=== PATIENT | female | born 1965 | race Caucasian/White ===

== ENCOUNTER 2023-04-11 06:55 | Day surgery (SDC) | payer OTHER, SELFPAY ==
[2023-04-11 07:20] VITALS: BP 119/76; PULSE 88; RESP 18; TEMP 36.4; O2SAT 95; BMI 35.6
[2023-04-11] MEDS: LACTATED RINGER'S SOLUTION 1,000 ML 50 ML IV (07:34)
[2023-04-11 08:48] VITALS: BP 93/56; PULSE 77; RESP 20; TEMP 36.2; O2SAT 96
--- NOTE | 2023-04-11 08:49 | OP_ITS ---
OPERATION DATE: ??04/11/2023 PREOPERATIVE DIAGNOSIS:? Anemia, iron deficiency anemia. POSTOPERATIVE DIAGNOSIS:? Mild antral gastritis and small hiatal hernia.? Normal colonoscopy to cecum. PROCEDURE:? EGD with antral biopsy and colonoscopy to cecum. SURGEON:? David Herrera M.D. ANESTHESIA:? Monitored anesthesia care. ESTIMATED BLOOD LOSS:? Less than 1 mL. INDICATIONS AND CONSENT:? Patient is a 58-year-old female presents for worsening of her chronic iron deficiency anemia.? Indications, risks, benefits, alternatives of proceeding with EGD and colonoscopy were explained extensively to the patient, including the risks of bleeding, aspiration, esophageal/gastric/duodenal or colonic perforation or anesthetic complications.? All of her questions were answered.? Informed consent was obtained. PROCEDURE:? Patient was brought to the operating room, placed in the left lateral decubitus position.? Monitored anesthesia care was provided.? Bite block was placed in the patient?s mouth.? Scope was entered into the oropharynx.? Under direct visualization, it was advanced into the esophagus, past the cricopharyngeus, down to the stomach.? The stomach was insufflated with air.? The pylorus was traversed down to the descending portion of the duodenum.? There was no evidence of duodenitis or ulceration.? There was no scarring within the pyloric channel.?? The scope was pulled back into the stomach and retroflexed.? There was a small sliding type hiatal hernia.? Within the antrum, there was noted to be some mild antral gastritis without ulceration or bleeding.? Biopsy was obtained with pediatric cold biopsy forceps with good hemostasis.? The GE junction was noted at approximately 39 cm.? There was no distal esophagitis or Leroy?s changes. The remainder of the esophagus was unremarkable.? The scope was then withdrawn.? Patient was then positioned for colonoscopy.? Rectal exam was performed, which showed no masses or blood.? The scope was then inserted into the anal canal.? Under direct visualization, it was advanced.? It was advanced to the cecum where cecal markings were clearly identified.? There was noted to be a good prep.? Upon withdrawal of the scope, mucosal surfaces were carefully examined.? There were no mass lesions or polyps.? No inflammatory changes or ulcerations.? There were rare sigmoid diverticula without inflammatory changes or scarring.? The scope was retroflexed in the anal canal.? There was no significant hemorrhoidal disease.? The scope was then withdrawn.? The patient tolerated procedure well, was sent to recovery room in good condition. f/u colonoscopy should be in 10 years for screening. CC:? Patient?s family physician CARLA
[2023-04-11 09:03] VITALS: BP 108/76; PULSE 78; RESP 18; TEMP 36.3; O2SAT 96
[2023-04-11 09:18] VITALS: BP 104/59; PULSE 72; RESP 18; TEMP 36.6; O2SAT 96
== END 2023-04-11 09:40 | disposition home or self-care (01) ==
PROVIDERS: PCP Family Medicine; Visit Provider Surgery
PROC: (CPT 813; principal; 2023-04-11 08:10)
DX: K29.70 Gastritis, unspecified, without bleeding (principal); D50.9 Iron deficiency anemia, unspecified; F41.9 Anxiety disorder, unspecified; G47.30 Sleep apnea, unspecified; J45.909 Unspecified asthma, uncomplicated; I25.10 Atherosclerotic heart disease of native coronary artery without angina pectoris; I87.2 Venous insufficiency (chronic) (peripheral); E11.9 Type 2 diabetes mellitus without complications; K21.9 Gastro-esophageal reflux disease without esophagitis; I10 Essential (primary) hypertension; E66.01 Morbid (severe) obesity due to excess calories; F17.210 Nicotine dependence, cigarettes, uncomplicated; E55.9 Vitamin D deficiency, unspecified; Z98.84 Bariatric surgery status; M48.02 Spinal stenosis, cervical region; Z68.35 Body mass index [BMI] 35.0-35.9, adult; Z79.82 Long term (current) use of aspirin; Z79.899 Other long term (current) drug therapy; K44.9 Diaphragmatic hernia without obstruction or gangrene
CPT/HCPCS: 43239; 45378; 36415; 88305; 88342; J2704

== ENCOUNTER 2023-12-06 08:13 | Outpatient (OUT) | payer OTHER, SELFPAY ==
[2023-12-06 08:29] LABS: Basophils Absolute Auto 0.1 10^3/uL (0.0-0.1); Basophils Percent Auto 1.3 % (0.2-2.0); Eosinophils Absolute Auto 0.1 10^3/uL (0.0-0.7); Eosinophils Percent Auto 2.6 % (0.9-7.0); Hematocrit 33.6 % (36.0-48.0); Hemoglobin 10.7 g/dL (12.0-16.0); Lymphocytes Absolute Auto 1.3 10^3/uL (1.2-3.8); Lymphocytes Percent Auto 32.6 % (20.5-60.0); Mean Corpuscular HGB Conc 31.8 g/dL (29.9-35.2); Mean Corpuscular Hemoglobin 32.2 pg (26.7-34.0); Mean Corpuscular Volume 101.2 fL (81.0-99.0); Monocytes Absolute Auto 0.4 10^3/uL (0.3-0.8); Monocytes Percent Auto 10.8 % (1.7-12.0); Neutrophils Absolute Auto 2.1 10^3/uL (1.4-6.5); Neutrophils Percent Auto 52.7 % (43.0-75.0); Platelet Count 193 10^3/uL (150-450); Red Blood Count 3.32 10^6/uL (4.20-5.40); Red Cell Distribution Width 12.4 % (11.0-15.0); White Blood Count 3.9 10^3/uL (4.0-11.0)
[2023-12-06 09:23] LABS: Estimated Average Glucose 105 mg/dL; Glycohemoglobin A1C 5.3 % (4.5-6.2)
[2023-12-06 09:41] LABS: Alanine Aminotransferase 37 U/L (14-59); Albumin Level 3.6 g/dL (3.4-5.0); Alkaline Phosphatase 41 U/L (46-116); Anion Gap 12.5; Aspartate Amino Transferase 29 U/L (15-37); BUN Creatinine Ratio 32.7; Bilirubin Total 0.7 mg/dL (0.2-1.0); Calcium 8.9 mg/dL (8.5-10.1); Carbon Dioxide 26.1 mmol/L (21.0-32.0); Chloride 108 mmol/L (98-107); Chol HDL Ratio 2.2; Cholesterol 125 mg/dL (<=200); Estimated GFR (African America >60 (>=60); Estimated GFR (Non-African Ame 51 (>=60); Free T3 2.52 pg/mL (2.18-3.98); Globulin 3.6 g/dL; Glucose 92 mg/dL (74-106); HDL Cholesterol 58 mg/dL (40-60); LDL Cholesterol Calculated 39.4 mg/dL; Potassium 4.6 mmol/L (3.5-5.1); Sodium 142 mmol/L (136-145); Thyroid Stimulating Hormone 1.937 uIU/mL (0.358-3.740); Total Protein 7.2 g/dL (6.4-8.2); Triglycerides 138 mg/dL (<=150); VLDL CHOLESTEROL 27.6 mg/dL
[2023-12-07 11:12] LABS: Insulin 12.9 uIU/mL (2.6-24.9)
== END 2023-12-06 08:14 | disposition home or self-care (01) ==
LOC: LAB 08:15
PROVIDERS: PCP Family Medicine; Visit Provider Family Medicine
DX: Z00.00 Encounter for general adult medical examination without abnormal findings (principal); E78.5 Hyperlipidemia, unspecified; R73.09 Other abnormal glucose; D64.9 Anemia, unspecified
CPT/HCPCS: 36415; 80053; 80061; 83036; 83525; 83540; 84436; 84443; 84481; 85025

== ENCOUNTER 2023-12-18 08:28 | Outpatient (OUT) | payer OTHER, SELFPAY ==
--- OUTSIDE RECORDS SUMMARY | 2023-12-18 08:33 | XMS_ITS | CCD ---
Author Name Unknown Address [address] [place] [address] Organization [facility] Care Team Providers Care In Classroom Tutor Name Role Phone ISAAC LAROSE Referring Unavailable Unknown, Pcp Unavailable Unavailable Jacqueline Robles Unavailable Noah Tai Unavailable Yolie Cross Unavailable Kaitlin Garibay Unavailable LAUREEN DAVENPORT Attending Unavailable Winston Sotelo Primary Care Physician DEEPAK ., DR MONTERO Admitting Unavailable HOY ., DR MONTERO Attending Unavailable HOY ., DR MOTNERO Consulting Unavailable HOY ., DR MONTERO Primary Care Unavailable HOY ., DR MONTERO Primary Care Unavailable ELTAHAWY, DR PANDEY Admitting Unavailable ELTAHAWY, DR PANDEY Attending Unavailable ELTAHAWY, DR PANDEY Consulting Unavailable ELTAHAWY, DR PANDEY Consulting Unavailable HOY ., DR MONTERO Primary Care Unavailable ELTAHAWY, DR PANDEY Admitting Unavailable ELTAHAWY, DR PANDEY Attending Unavailable SANCHOY ., DR MONTERO Primary Care Unavailable NILL ., DR ANDERSON Admitting Unavailable NILL ., DR ANDERSON Attending Unavailable NILLDavid Attending Unavailable NILLDavid Attending Unavailable NILLDavid Attending Unavailable Allergies Allergy Classification Reported Allergen(s) Allergy Type Date of Onset Reaction(s) Facility (1 source) Cat Angioedema [facility] (1 source) DrugAllergiesUnable to Obtain [facility] Comment on above: Pharmacy/MD office jackelyn de souza (5 sources) Latex; Translations: [LATEX] Propensity to adverse reactions to drug (disorder) 01-20-20 23 adele nixon [facility] Rep[facility] Medications Current Medications Medication Drug Class(es) Dates Sig (Normalized) Sig (Original) Acetaminophen (8 sources) Tylenol Active [id number] 200 actuat albuterol 0.09 mg/actuat metered dose inhaler (1 source) beta2-Adrenergic Agonist Start: 09-04-2022 take 2 puff(s) by inhalation four times daily as needed Albuterol Sulfate HFA 108 (90 Base) MCG/ACT 2 puffs Inhalation 4 times a day prn 14 Aug, 2022 Active Aspir-81 (8 sources) Aspir-81 Active aspirin 81 mg chewable tablet (2 sources) Platelet Aggregation Inhibitor, Nonsteroidal Anti-inflammatory Drug Start: 02-09-2023 aspirin 81 mg Chew Tab 81 mg = 1 tab(s), Chewed, Daily, Refills(s) 0 Start Date: 02/09/23 Status: Ordered atorvastatin (8 sources) HMG-CoA Reductase Inhibitor Atorvastatin Calcium Active azithromycin 250 mg oral tablet (1 source) Macrolide Antimicrobial Start: 09-04-2022 Azithromycin 250 MG 2 tablet on the first day, then 1 tablet daily for 4 days Orally Once a day for 5 day(s) Aug, Active carvedilol 12.5 mg oral tablet (2 sources) alpha-Adrenergic Denzel, beta-Adrenergic Denzel Start: 02-09-2023 take 1 tablet by mouth twice daily Coreg 12.5 mg Tab 12.5 mg = 1 tab(s), Oral, BID, Refills(s) 0 Start Date: 02/09/23 Status: Ordered celecoxib 200 mg oral capsule (10 sources) Nonsteroidal Anti-inflammatory Drug Start: 02-12-2018 take 200 mg by mouth once daily Celebrex 200 mg, Oral, Daily, Refills(s) 0 Start Date: 02/12/18 Status: Ordered Celecoxib Active cephalexin 500 mg oral capsule (1 source) Cephalosporin Antibacterial Start: 02-04-2023 take 1 capsule by mouth every eight hours Cephalexin 500 MG 1 capsule Orally tid for 10 day(s) Jan, Active chlorhexidine gluconate 1.2 mg/ml mouthwash (1 source) Start: 07-10-2021 Peridex 0.12% mucous membrane liquid ; 15 milliliter(s) orally 3 times a 1day Quantity: 1 Refills: 0 Ordered: 10-Jul-2021 Jacqueline Robles Start: 10-Jul-2021 Generic Substitution Allowed dextromethorphan hydrobromide 1.5 mg/ml / pyrilamine maleate 1.5 mg/ml oral solution (2 sources) Uncompetitive W-z[place]job-[place] te Receptor Antagonist, Sigma-1 Agonist Start: 08-27-2022 take 10 mL by mouth every eight hours [place] DM 7.5-7.5 MG/5ML 10 mL Orally every 8 hours for 5 days Aug, Active diclofenac sodium 0.01 mg/mg topical gel (8 sources) Nonsteroidal Anti-inflammatory Drug Voltaren 1 % as directed Externally Active docusate sodium 100 mg oral capsule (2 sources) Start: 02-09-2023 take 1 capsule by mouth twice daily as needed for constipation Colace 100 mg Cap 100 mg = 1 cap(s), Oral, BID, PRN for constipation, Refills(s) 0 Start Date: 02/09/23 Status: Ordered ferrous sulfate 325 mg delayed release oral tablet (2 sources) Start: 02-09-2023 take 1 tablet by mouth twice daily ferrous sulfate 325 mg oral enteric coated tablet 325 mg = 1 tab(s), Oral, BID, Refills(s) 0 Start Date: 02/09/23 Status: Ordered fluticasone propionate 0.05 mg/actuat metered dose nasal spray (3 sources) Corticosteroid Start: 09-04-2022 take 2 spray(s) nasal route once daily Fluticasone Propionate 50 MCG/ACT 2 sprays Nasally Once a day for 14 day(s) Aug, Active Start: 08-27-2022 take 1 spray(s) nasa l route twice daily Flonase Allergy Relief 50 MCG/ACT 1 spray in each nostril Nasally Twice a day for 14 day(s) Aug, Active furosemide 20 mg oral tablet (16 sources) Loop Diuretic take 1 tablet by lenny th every twenty-four hours Lasix 20 MG 1 tablet Orally Once a day Active Furosemide Not-T aking Furosemide Activ e hydrOXYzine hydrochloride 25 mg oral tablet (2 sources) Antihistamine Start: 02-09-2023 take 1-2 tablets by mouth at bedtime hydrOXYzine hydrochloride 25 mg Tab 1-2 tabs, Oral, Bedtime, Refills(s) 0 Start Date: 02/09/23 Status: Ordered linaclotide 0.072 mg oral capsule (2 sources) Guanylate Cyclase-C Agonist Start: 02-09-2023 take 1 capsule by mouth once daily Linzess 72 mcg oral capsule 72 mcg = 1 cap(s), Oral, Daily, Refills(s) 0 Start Date: 02/09/23 Status: Ordered lisinopril 40 mg oral tablet (10 sources) Angiotensin Converting Enzyme Inhibitor Start: 02-09-2023 take 1 tablet by mouth once daily lisinopril 40 mg Tab 40 mg = 1 tab(s), Oral, Daily, Refills(s) 0 Start Date: 02/09/23 Status: Ordered Lisinopril Activ e Multivitamin preparation (10 sources) Start: 02-09-2023 take 1 tablet by mouth once daily multivitamin 1 tab(s), Oral, Daily, Refill(s) 0 Start Date: 02/09/23 Status: Ordered Multivitamin Act lisandro oxybutynin chloride 5 mg oral tablet (10 sources) Cholinergic Muscarinic Antagonist Start: 02-12-2018 take 5 mg by mouth once daily oxybutynin 5 mg, Oral, Daily, Refills(s) 0 Start Date: 02/12/18 Status: Ordered Oxybutynin Chlor leonarda Active pantoprazole 40 mg extended release oral tablet (10 sources) Proton Pump Inhibitor Start: 02-12-2018 take 40 mg by mouth twice daily pantoprazole 40 mg, Oral, BID, Refills(s) 0 Start Date: 02/12/18 Status: Ordered Pantoprazole Sod ium Active predniSONE 20 mg oral tablet (1 source) Start: 09-04-2022 take 1 tablet by mouth every twelve hours predniSONE 20 MG 1 tablet Orally 2 times a day for 5 day(s) Aug, Active tiZANidine 4 mg oral tablet (8 sources) Central alpha-2 Adrenergic Agonist take 1 tablet by mouth every eight hours tiZANidine HCl 4 MG 1 tablet as needed Orally Three times a day Active Completed/Discontinued Medications Medication Drug Class(es) Dates Sig (Normalized) Sig (Original) acetaminophen 325 mg / HYDROcodone bitartrate 5 mg oral tablet (6 sources) Opioid Agonist Start: 10-17-2021 take 1 tablet by mouth every four hours as needed for pain HYDROcodone-Aceta minophen 5-325 MG 1 tablet as needed for pain Orally up to every 4 hrs for 5 days Sep, Not-Taking amoxicillin 875 mg / clavulanate 125 mg oral tablet (4 sources) Penicillin-class Antibacterial Start: 02-19-2022 take 1 tablet by mouth every twelve hours Amoxicillin-Pot Clavulanate 875-125 MG 1 tablet Orally every 12 hrs for 10 day(s) February, Not-Taking Metoprolol (8 sources) beta-Adrenergic Denzel Metoprolol Succinate ER Not-Taking traMADol (8 sources) Opioid Agonist traMADol HCl Not-Taking traMADol HCl Act lisandro Problems Active Problems Problem Classification Problem Date Documented Date Episodic/Chronic Allergic reactions (2 sources) Eczema 02-09-2023 Episodic Anxiety disorders (2 sources) Anxiety 02-09-2023 Chronic Asthma (2 sources) Asthma 02-12-2018 Chronic Chronic obstructive pulmonary disease and bronchiectasis (1 source) Bronchitis, not specified as acute or chronic Episodic Congestive heart failure; nonhypertensive (6 sources) Chronic diastolic (congestive) heart failure; Translations: [Chronic diastolic (congestive) heart failure] Onset: 07-04-2022 Chronic Coronary atherosclerosis and other heart disease (4 sources) Atherosclerotic heart disease of [place] coronary artery without angina pectoris; Translations: [Coronary arteriosclerosis] Onset: 07-04-2022 Chronic Deficiency and other anemia (2 sources) Anemia 02-12-2018 Episodic Deficiency and other anemia (2 sources) Iron deficiency anemia; Translations: [Iron deficiency anemia, unspecified] Onset: 04-25-2023 Episodic Diabetes mellitus without complication (2 sources) Diabetes mellitus 02-09-2023 Chronic E Codes: Fall (2 sources) Fall 07-10-2021 Comment on above: FALL Esophageal disorders (2 sources) Gastroesophageal reflux disease 02-09-2023 Chronic Essential hypertension (7 sources) Essential (primary) hypertension; Translations: [Hypertensive disorder] Onset: 12-19-2018 Chronic Immunizations and screening for infectious disease (4 sources) Contact with and (suspected) exposure to other viral communicable diseases; Translations: [Contact with and (suspected) exposure to other viral communicable diseases] Episodic Malaise and fatigue (1 source) Other fatigue; Translations: [Other fatigue] Onset: 12-19-2018 Episodic Nutritional deficiencies (2 sources) Vitamin D deficiency 02-09-2023 Chronic Open wounds of head; neck; and trunk (3 sources) Laceration of lower lip ; Translations: [Open wound of lip, without mention of complication] 07-10-2021 Episodic Osteoarthritis (2 sources) Arthritis 02-09-2023 Chronic Other diseases of veins and lymphatics (2 sources) Peripheral venous insufficiency 02-09-2023 Episodic Other injuries and conditions due to external causes (2 sources) Closed injury of head; Translations: [Head injury, unspecified] 07-10-2021 Episodic Other lower respiratory disease (1 source) Snoring; Translations: [Snoring] Onset: 12-19-2018 Episodic Other lower respiratory disease (1 source) Shortness of breath; Translations: [Shortness of breath] Onset: 12-19-2018 Episodic Other nervous system disorders (8 sources) Bilateral carpal tunnel syndrome; Translations: [Carpal tunnel syndrome, bilateral upper limbs] Chronic Other nervous system disorders (8 sources) Carpal tunnel syndrome of right wrist; Translations: [Carpal tunnel syndrome, right upper limb] Chronic Other nervous system disorders (8 sources) Carpal tunnel syndrome; Translations: [Carpal tunnel syndrome, unspecified upper limb] Chronic Other nervous system disorders (10 sources) Lesion of ulnar nerve, right upper limb; Translations: [Cubital tunnel syndrome on right] Onset: 08-18-2021 Resolved: 11-01-2021 Chronic Other nervous system disorders (2 sources) Carpal tunnel syndrome, right upper limb; Translations: [Right carpal tunnel syndrome G56.01] Onset: 08-18-2021 Resolved: 11-01-2021 Chronic Other nervous system disorders (2 sources) Numbness 02-09-2023 Episodic Other nutritional; endocrine; and metabolic disorders (2 sources) Body mass index 30+ - obesity 02-14-2023 Chronic Other nutritional; endocrine; and metabolic disorders (2 sources) Morbid obesity 02-09-2023 Chronic Other nutritional; endocrine; and metabolic disorders (1 source) Abnormal weight gain; Translations: [Abnormal weight gain] Onset: 12-19-2018 Episodic Other upper respiratory infections (4 sources) Acute upper respiratory infection, unspecified; Translations: [Acute pharyngitis, unspecified] Episodic Residual codes; unclassified (1 source) Other hypersomnia; Translations: [Other hypersomnia] Onset: 12-19-2018 Chronic Residual codes; unclassified (2 sources) Sleep apnea 02-19-2018 Chronic Residual codes; unclassified (1 source) Sleep apnea, unspecified; Translations: [Sleep apnea, unspecified] Onset: 12-19-2018 Residual codes; unclassified (1 source) Hypersomnia, unspecified; Translations: [Hypersomnia, unspecified] Onset: 12-19-2018 Skin and subcutaneous tissue infections (1 source) Cellulitis of right upper limb Episodic Spondylosis; intervertebral disc disorders; other back problems (4 sources) Low back pain; Translations: [Spinal stenosis in cervical region] 02-09-2023 Episodic Substance-related disorders (2 sources) Smoker 02-19-2018 Chronic Comment on above: Added secondary to d ocumentation in Social History. Superficial injury; contusion (5 sources) Contusion of nose; Translations: [Contusion of face, scalp, and neck except eye(s)] 07-10-2021 Episodic Unclassified (1 source) Nasal contusion 07-10-2021 Unclassified (1 source) Abrasion of nose 07-10-2021 Unclassified (1 source) Intraoral laceration 07-10-2021 Unclassified (1 source) Contusion, elbow 07-10-2021 Unclassified (1 source) Contusion of knee, right 07-10-2021 Unclassified (1 source) Abrasion, hand 07-10-2021 Varicose veins of lower extremity (2 sources) Varicose veins of lower extremity 02-09-2023 Episodic Past or Other Problems Problem Classification Problem Date Documented Date Episodic/Chronic Other aftercare (1 source) Encounter for removal of sutures Onset: 11-01-2021 Resolved: 11-01-2021 Episodic Residual codes; unclassified (2 sources) Other specified postprocedural states Onset: 10-17-2021 Resolved: 11-01-2021 Episodic Residual codes; unclassified (4 sources) Edema, unspecified; Translations: [EDEMA UNSPECIFIED] Onset: 06-30-2022 Episodic Unclassified (1 source) Contact with and (suspected) exposure to covid-19 Z20.822 Results Test Name Value Interpretation Reference Range Facility Ambulatory Visit Summaryon 0 04-25-2023 Ambulatory Visit Summary LUJANJACKELYN SHORTSuraj Nora :1965 Visit Date:04/25/2023 Ambulatory Visit Instructions Your Diagnosis Iron deficiency anemia Your Care Team Attending Physician - ANNABEL BERRY, David Murphy Primary Care Physician - Winston Sotelo MD This Is Your Medications List Contact prescribing physician if questions or concerns aspirin (aspirin 81 mg Chew Tab) carvedilol (Coreg 12.5 mg Tab) celecoxib (Celebrex) docusate (Colace 100 mg Cap) ferrous sulfate (ferrous sulfate 325 mg oral enteric coated tablet) hydrOXYzine (hydrOXYzine hydrochloride 25 mg Tab) linaclotide (Linzess 72 mcg oral capsule) lisinopril (lisinopril 40 mg Tab) multivitamin oxybutynin pantoprazole Procedures Performed Colonoscopy (04/11/2023), EGD - Esophagogastroduodenoscopy (04/11/2023), Gastric sleeve (2020), Carpal tunnel release, History of elbow surgery, History of tubal ligation, Repair of meniscus. Medications What How Much When Instructions Unchanged aspirin (aspirin 81 mg Chew Tab) 1 Tablets Chewed Every day Contact prescribing physician if questions or concerns Unchanged carvedilol (Coreg 12.5 mg Tab) 1 Tablets By Mouth 2 times a day Contact prescribing physician if questions or concerns Unchanged celecoxib (Celebrex) 200 Milligram By Mouth Every day Contact prescribing physician if questions or concerns Unchanged docusate (Colace 100 mg Cap) 1 Capsules By Mouth 2 times a day as needed for for constipation Contact prescribing physician if questions or concerns Unchanged ferrous sulfate (ferrous sulfate 325 mg oral enteric coated tablet) 1 Tablets By Mouth 2 times a day Contact prescribing physician if questions or concerns Unchanged hydrOXYzine (hydrOXYzine hydrochloride 25 mg Tab) 1-2 tabs By Mouth At bedtime Contact prescribing physician if questions or concerns Unchanged linaclotide (Linzess 72 mcg oral capsule) 1 Capsules By Mouth Every day Contact prescribing physician if questions or concerns Unchanged lisinopril (lisinopril 40 mg Tab) 1 Tablets By Mouth Every day Contact prescribing physician if questions or concerns Unchanged multivitamin 1 Tablets By Mouth Every day Contact prescribing physician if questions or concerns Unchanged oxybutynin 5 Milligram By Mouth Every day Contact prescribing physician if questions or concerns Unchanged pantoprazole 40 Milligram By Mouth 2 times a day Contact prescribing physician if questions or concerns Allergies Latex (lips swell) Problems Ongoing - Any problem that you are currently receiving treatment for. Anemia Anxiety Apnea, sleep Asthma BMI 35.0-35.9,adult CAD (coronary artery disease) Cervical stenosis of spine Chronic venous insufficiency Diabetes Eczema GERD (gastroesophageal reflux disease) HTN (hypertension) Hypertension Iron deficiency anemia Low back pain syndrome Morbid obesity Smoker Varicose veins of legs Vitamin D deficiency Historical - Any problem that you are no longer receiving treatment for. Arthritis Numbness Normal [facility] General Surgery Office/Clini c Noteon 04-25-2023 General Surgery Office/Clinic Note Chief Complaint post operative follow up HPI Staff 14 day post operative follow up post colonoscopy and EGD with antral biopsy. History of Present Illness f/u EGD/colonoscopy done for anemia; mild gastric inflammation, bx with mild gastritis, negative for H Pylori, normal colon. doing well, no pain or blood in stools. Review of Systems ROS - Provider Constitutional: no fever, no sweats, no weight loss. Eyes: no glasses, no blurred vision, no visual loss. ENMT: no dentures, no hoarseness, no swallowing difficulties, no hearing loss, no ear infection(s), no nose bleeds. Cardiovascular: normal blood pressure, no chest pain, regular heartbeat, no heart murmur. Respiratory: no shortness of breath, no cough, no asthma, no wheezing. Gastrointestinal: no nausea, no vomiting, no diarrhea, no constipation, no blood in stool, no change in bowel habits, no abdominal pain, no hepatitis. Genitourinary: no kidney stones, no urine infection, no dysuria. Musculoskeletal: no pain, no weakness. Skin: no changing moles, no rash, no skin lumps. Neurologic: no seizures, no epilepsy, no headache. Psychiatric: no emotional or psychiatric problem. Heme/Lymph: no bleeding problems, no anemia, no blood clots, no transfusions. Allergy/Immunologic: no swollen lymph nodes/glands, no IV drug abuse. Other: Additional ROS info: Except as noted in the above Review of Systems and in the History of Present Illness, all other systems have been reviewed and are negative or noncontributory. Assessment/Plan 1. Iron deficiency anemia (D50.9: Iron deficiency anemia, unspecified) no source found on EGD or colonoscopy; recommend evaluation by Hematology if persists; f/u screening colonoscopy in 10 years; call sooner if problems/questions. Follow-up No qualifying data available Problem List/Past Medical History Ongoing Anemia Anxiety Apnea, sleep Asthma BMI 35.0-35.9,adult CAD (coronary artery disease) Cervical stenosis of spine Chronic venous insufficiency Diabetes Eczema GERD (gastroesophageal reflux disease) HTN (hypertension) Hypertension Iron deficiency anemia Low back pain syndrome Morbid obesity Smoker Varicose veins of legs Vitamin D deficiency Historical Arthritis Numbness Procedure/Surgical History Colonoscopy (04/11/2023), EGD - Esophagogastroduodenoscopy (04/11/2023), Gastric sleeve (2020), Carpal tunnel release, History of elbow surgery, History of tubal ligation, Repair of meniscus. Medications aspirin 81 mg Chew Tab, 81 mg= 1 tab(s), Chewed, Daily Celebrex, 200 mg, Oral, Daily Colace 100 mg Cap, 100 mg= 1 cap(s), Oral, BID, PRN Coreg 12.5 mg Tab, 12.5 mg= 1 tab(s), Oral, BID ferrous sulfate 325 mg oral enteric coated tablet, 325 mg= 1 tab(s), Oral, BID hydrOXYzine hydrochloride 25 mg Tab, 1-2 tabs, Oral, Bedtime Linzess 72 mcg oral capsule, 72 mcg= 1 cap(s), Oral, Daily lisinopril 40 mg Tab, 40 mg= 1 tab(s), Oral, Daily multivitamin, 1 tab(s), Oral, Daily oxybutynin, 5 mg, Oral, Daily pantoprazole, 40 mg, Oral, BID Allergies Latex (lips swell) Social History Alcohol Current, Liquor, 1-2 times per week, 02/14/2023 Substance Abuse - Denies Substance Abuse, 02/19/2018 Tobacco Former smoker, quit more than 30 days ago Tobacco Use:. Never Smokeless Tobacco Use:. Cigarettes, 1 per day. Started age 18.0 Years. Stopped age 52 Years., 02/14/2023 Family History Cardiac arrest: Mother. Primary malignant neoplasm of lung: Father. Immunizations Vaccine Date Status Comments influenza virus vaccine, inactivated - Not Given Patient Refuses SARS-CoV-2 (COVID-19) mRNA-1273 vaccine 05/21/2021 Recorded SARS-CoV-2 (COVID-19) mRNA-1273 vaccine 04/19/2021 Recorded Normal [facility] Comment on above: Result Comment: Elec tronically Signed By: ANNABEL BERRY, David Joyce\Date and Time Signed: 04/25/23 16:13 EDT Pathology Noteon 04-16-2023 Pathology Note [id number]#1.00CD:127 [facility] Outside Colonoscopyon 2022 Outside Colonoscopy [id number]#[id number]:127 [facility] Reminderson 04-12-2023 Reminders - From: Myra Escobedo LPN To: N - Clinical; Sent: 04/12/2023 13:58:02 EDT Show up: 03/11/2033 07:00:00 EDT Subject: colonoscopy recall Due Date/Time: 04/11/2033 07:00:00 EDT Reminder/Recall Patient due for screening colonoscopy 04/11/2033. [facility] Pre-Certification Formon Pre-Certification Form [id number]#[id number]:127 [facility] Consent for Procedure/Surger yon 02-16-2023 Consent for Procedure/Surgery [id number]#1.00CD:127 [facility] Facesheeton 02-15-2023 Facesheet [id number]#1.00CD:127 [facility] Ambulatory Visit Summaryon 0 02-14-2023 Ambulatory Visit Summary PALLAVI LUJAN :1965 Visit Date:02/14/2023 Ambulatory Visit Instructions Your Care Team Attending Physician - ANNABEL BERRY, David Murphy Primary Care Physician - Winston Sotelo MD This Is Your Medications List aspirin (aspirin 81 mg Chew Tab) carvedilol (Coreg 12.5 mg Tab) celecoxib (Celebrex) docusate (Colace 100 mg Cap) ferrous sulfate (ferrous sulfate 325 mg oral enteric coated tablet) hydrOXYzine (hydrOXYzine hydrochloride 25 mg Tab) linaclotide (Linzess 72 mcg oral capsule) lisinopril (lisinopril 40 mg Tab) multivitamin oxybutynin pantoprazole Procedures Performed Gastric sleeve (2020), Carpal tunnel release, History of elbow surgery, History of tubal ligation, Repair of meniscus. Discharge Vitals Heart Rate (Peripheral) 82 Respiratory Rate 16 Blood Pressure 132/82 Height 167.6 cm Height 66 in Weight 99.7 kg Weight 219.34 lb BMI 35.49 Medications What How Much When Instructions Unchanged aspirin (aspirin 81 mg Chew Tab) 1 Tablets Chewed Every day Unchanged carvedilol (Coreg 12.5 mg Tab) 1 Tablets By Mouth 2 times a day Unchanged celecoxib (Celebrex) 200 Milligram By Mouth Every day Unchanged docusate (Colace 100 mg Cap) 1 Capsules By Mouth 2 times a day as needed for for constipation Unchanged ferrous sulfate (ferrous sulfate 325 mg oral enteric coated tablet) 1 Tablets By Mouth 2 times a day Unchanged hydrOXYzine (hydrOXYzine hydrochloride 25 mg Tab) 1-2 tabs By Mouth At bedtime Unchanged linaclotide (Linzess 72 mcg oral capsule) 1 Capsules By Mouth Every day Unchanged lisinopril (lisinopril 40 mg Tab) 1 Tablets By Mouth Every day Unchanged multivitamin 1 Tablets By Mouth Every day Unchanged oxybutynin 5 Milligram By Mouth Every day Unchanged pantoprazole 40 Milligram By Mouth 2 times a day Medications and Immunizations Administered Not Given influenza virus vaccine, inactivated, Patient Refuses Allergies Latex (lips swell) Problems Ongoing - Any problem that you are currently receiving treatment for. Anemia Anxiety Apnea, sleep Asthma BMI 35.0-35.9,adult CAD (coronary artery disease) Cervical stenosis of spine Chronic venous insufficiency Diabetes Eczema GERD (gastroesophageal reflux disease) HTN (hypertension) Hypertension Low back pain syndrome Morbid obesity Smoker Varicose veins of legs Vitamin D deficiency Historical - Any problem that you are no longer receiving treatment for. Arthritis Numbness Normal [facility] Physician Referralon 023 Physician Referral [id number]:127 Normal [facility] Office Visiton 01-19-2023 Follow-up visit [id number] Jackelyn Lujan 1965 F Date Provider Department Center 01/19/2023 120-LAUREEN DAVENPORT CARD Phyll[facility] No family history on file Level of Service:45736 [place] OFFICE/OUTPATIENT ESTABLISHED MOD MDM 30-39 MIN Reason for Visit and Comments: Follow-up [[id number]] - Yearly Palpitations [] - Went away w/ stopping coffee Normal [facility] INSULINon 01-17-2023 Insulin 7.1 uIU/mL Normal 2.6-24.[address] [facility] Comment on above: Performed By: #### I NSULIN #### [facility] [address] [place] [address] Dr. Demetri Leahy CBC AUTO DIFFon 01-16-2023 BASO # 0.0 103/ul Normal 0.0-0.[address] [facility] Comment on above: Performed By: #### C BC #### [facility] [address] [place] [address] Dr. Demetri Leahy Basophils/100 WBC (Bld) 0.7 % Normal 0.2-2.[address] [facility] Comment on above: Performed By: #### C BC #### [facility] [address] [place] [address] Dr. Demetri Leahy EO # 0.1 103/ul Normal 0.0-0.[address] [facility] Comment on above: Performed By: #### C BC #### [facility] [address] [place] [address] Dr. Demetri Leahy Eosinophils/100 WBC (Bld) 2.4 % Normal 0.9-7.[address] [facility] Comment on above: Performed By: #### C BC #### [facility] [address] [place] [address] Dr. Demetri Leahy Erythrocyte distribution width (RBC) [Ratio] 12.9 % Normal 11.0-15.[address] [facility] Comment on above: Performed By: #### C BC #### [facility] [address] [place] [address] Dr. Demetri Leahy Hematocrit (Bld) [Volume fraction] 32.3 % Critically low 36.0-48.[address] [facility] Comment on above: Performed By: #### C BC #### [facility] [address] [place] [address] Dr. Demetri Leahy Hemoglobin (Bld) [Mass/Vol] 10.5 g/dL Critically low 12.0-16.[address] [facility] Comment on above: Performed By: #### C BC #### [facility] [address] [place] [address] Dr. Demetri Leahy IG # 0.01 10e3/ul Normal 0.00-0.[address] [facility] Comment on above: Performed By: #### C BC #### [facility] [address] [place] [address] Dr. Demetri Leahy IG % 0.2 % Normal 0.0-0.[address] [facility] Comment on above: Performed By: #### C BC #### [facility] [address] [place] [address] Dr. Demteri Leahy LYMPH # 1.3 103/ul Normal 1.2-3.8 [facility] Comment on above: Performed By: #### C BC #### [facility] [address] [place] [address] Dr. Demetri Leahy Lymphocytes/100 WBC (Bld) 21.9 % Normal 20.5-60.0 [facility] Comment on above: Performed By: #### C BC #### [facility] [address] [place] [address] Dr. Demetri Leahy MANUAL DIFF REQ NO Normal [facility] Comment on above: Performed By: #### C BC #### [facility] [address] [place] [address] Dr. Demetri Leahy MCH (RBC) [Entitic mass] 31.4 pg Normal 26.7-34.0 [facility] Comment on above: Performed By: #### C BC #### [facility] [address] [place] [address] Dr. Demetri Leahy MCHC (RBC) [Mass/Vol] 32.5 g/dL Normal 29.9-35.2 [facility] Comment on above: Performed By: #### C BC #### [facility] [address] [place] [address] Dr. Demetri Leahy MCV (RBC) [Entitic vol] 96.7 fL Normal 81.0-99.[address] [facility] Comment on above: Performed By: #### C BC #### [facility] [address] [place] [address] Dr. Demetri Leahy MONO # 0.6 103/ul Normal 0.3-0.8 [facility] Comment on above: Performed By: #### C BC #### [facility] [address] [place] [address] Dr. Demetri Leahy Monocytes/100 WBC (Bld) 9.9 % Normal 1.7-12.[address] [facility] Comment on above: Performed By: #### C BC #### [facility] [address] [place] [address] Dr. Demetri Leahy NEUT # 3.9 103/ul Normal 1.4-6.[address] [facility] Comment on above: Performed By: #### C BC #### [facility] [address] [place] [address] Dr. Demetri Leahy Neutrophils/100 WBC (Bld) 64.9 % Normal 43.0-75.0 [facility] Comment on above: Performed By: #### C BC #### [facility] [address] [place] [address] Dr. Demetri Leahy Platelet mean volume (Bld) [Entitic vol] 9.0 fL Critically low 9.5-13.5 [facility] Comment on above: Performed By: #### C BC #### [facility] [address] [place] [address] Dr. Demetri Leahy PLT 210 103/ul Normal 150-450 [facility] Comment on above: Performed By: #### C BC #### [facility] [address] [place] [address] Dr. Demetri Leahy RBC 3.34 106/ul Critically low 4.20-5.40 [facility] Comment on above: Performed By: #### C BC #### [facility] [address] [place] [address] Dr. Demetri Leahy WBC 5.9 103/ul Normal 4.0-11.0 [facility] Comment on above: Performed By: #### C BC #### [facility] [address] [place] [address] Dr. Demetri Leahy FREE THYROXINE INDEX T7on FTI 2.05 Normal 1.30-4.[address] [facility] Comment on above: Performed By: #### T 7, TSH, LIPID, CMP #### [facility] [address] [place] [address] Dr. Demetri Leahy T3U 36.0 % Normal 30.0-39.[address] [facility] Comment on above: Performed By: #### T 7, TSH, LIPID, CMP #### [facility] [address] [place] [address] Dr. Demetri Leahy T4 [Mass/Vol] 5.70 ug/dL Normal 4.80-13.90 [facility] Comment on above: Performed By: #### T 7, TSH, LIPID, CMP #### [facility] [address] [place] [address] Dr. Demetri Leahy GLYCOHEMOGLOBIN A1Con 2022 ADA RECOMMENDATION SEE BELOW Normal [facility] Comment on above: Result Comment: ADA RECOMMENDED LIMIT 4.0 - 6.0 ADA THERAPEUTIC TARGET < 7.0 ACTION SUGGESTED > 7.0 Performed By: #### A 1C #### [facility] [address] [place] [address] Dr. Demetri Leahy Glucose [Mass/Vol] 88 mg/dL Normal [facility] Comment on above: Performed By: #### A 1C #### [facility] [address] [place] [address] Dr. Demetri Leahy HbA1c (Bld) [Mass fraction] 4.7 % Normal 4.5-6.[address] [facility] Comment on above: Performed By: #### A 1C #### [facility] [address] [place] [address] Dr. Demetri Leahy IRONon 01-16-2023 Iron [Mass/Vol] 41.0 ug/dL Critically low 50.0-170.0 [facility] Comment on above: Performed By: #### I BRYAN #### [facility] [address] [address] [address] Demetri Leahy LIPID PROFILEon 01-16-2023 CHOL-HDL RATIO NORM SEE BELOW Normal [facility] Comment on above: Result Comment: 3.3 - 4.4 LOW RISK 4.4 - 7.1 AVERAGE RISK 7.1 - 11.0 MODERATE RISK >11.0 HIGH RISK Performed By: #### T 7, TSH, LIPID, CMP #### [facility] [address] [address] [address] Demetri Leahy Cholesterol [Mass/Vol] 145 mg/dL Normal <=[address] [facility] Comment on above: Performed By: #### T 7, TSH, LIPID, CMP #### [facility] [address] [place] [address] Dr. Demetri Leahy Cholesterol in HDL [Mass/Vol] 71 mg/dL Critically high 40-[address] [facility] Comment on above: Performed By: #### T 7, TSH, LIPID, CMP #### [facility] [address] [place] [address] Dr. Demetri Leahy Cholesterol in LDL [Mass/Vol] 42.4 mg/dL Normal [facility] Comment on above: Performed By: #### T 7, TSH, LIPID, CMP #### [facility] [address] [place] [address] Dr. Demetri Leahy Cholesterol.total /Cholesterol in HDL [Mass ratio] 2.0 {ratio} Normal [facility] Comment on above: Performed By: #### T 7, TSH, LIPID, CMP #### [facility] [address] [place] [address] Dr. Demetri Leahy HDL NORMAL > or = 60 mg/dl - LO W CARDIOVASCULAR RISK <40 mg/dl - HIGH CARDIOVASCULAR RISK Normal [facility] Comment on above: Performed By: #### T 7, TSH, LIPID, CMP #### [facility] [address] [place] [address] Dr. Demetri Leahy LDL CALC NORMAL SEE BELOW Normal [facility] Comment on above: Result Comment: <100 mg/dl OPTIMAL 100 - 129 mg/dl NEAR OR ABOVE OPTIMAL 130 - 159 mg/dl BORDERLINE HIGH 160 - 189 mg/dl HIGH >190 mg/dl VERY HIGH Performed By: #### T 7, TSH, LIPID, CMP #### [facility] [address] [address] [address] Demetri Lehay Triglyceride [Mass/Vol] 158 mg/dL Critically high <=[address] [facility] Comment on above: Performed By: #### T 7, TSH, LIPID, CMP #### [facility] [address] [address] [address] Demetri Leahy VLDL CALC 31.6 mg/dL Normal [facility] Comment on above: Performed By: #### T 7, TSH, LIPID, CMP #### [facility] [address] [place] [address] Dr. Demetri Leahy OCC BLD IMMUNO SCREENon 12-21 OCCULT BLOOD Negative Normal NEGATIVE [facility] Comment on above: Performed By: #### T 7, TSH, LIPID, CMP #### [facility] [address] [place] [address] Dr. Demetri Leahy PROF 14(COMP METB)on 023 Albumin [Mass/Vol] 3.8 g/dL Normal 3.4-5.[address] [facility] Comment on above: Performed By: #### T 7, TSH, LIPID, CMP #### [facility] [address] [place] [address] Dr. Demetri Leahy Albumin/Globulin [Mass ratio] 1.2 {ratio} Normal [facility] Comment on above: Performed By: #### T 7, TSH, LIPID, CMP #### [facility] [address] [place] [address] Dr. Demetri Leahy ALP [Catalytic activity/Vol] 50 U/L Normal 46-116 [facility] Comment on above: Performed By: #### T 7, TSH, LIPID, CMP #### [facility] [address] [place] [address] Dr. Demetri Leahy ALT [Catalytic activity/Vol] 53 U/L Normal 14-59 [facility] Comment on above: Performed By: #### T 7, TSH, LIPID, CMP #### [facility] [address] [address] [address] Demetri Leahy Anion gap [Moles/Vol] 14.1 mmol/L Normal [facility] Comment on above: Performed By: #### T 7, TSH, LIPID, CMP #### [facility] [address] [address] [address] Demetri Leahy AST [Catalytic activity/Vol] 36 U/L Normal 15-37 [facility] Comment on above: Performed By: #### T 7, TSH, LIPID, CMP #### [facility] [address] [address] [address] Demetri Leahy Bilirubin [Mass/Vol] 0.4 mg/dL Normal 0.2-1.[address] [facility] Comment on above: Performed By: #### T 7, TSH, LIPID, CMP #### [facility] [address] [address] [address] Demetri Leahy Calcium [Mass/Vol] 9.0 mg/dL Normal 8.5-10.1 [facility] Comment on above: Performed By: #### T 7, TSH, LIPID, CMP #### [facility] [address] [address] [address] Demetri Leahy Chloride [Moles/Vol] 109 mmol/L Critically high 98-107 [facility] Comment on above: Performed By: #### T 7, TSH, LIPID, CMP #### [facility] [address] [address] [address] Demetri Leahy CO2 [Moles/Vol] 28.0 mmol/L Normal 21.0-32.0 [facility] Comment on above: Performed By: #### T 7, TSH, LIPID, CMP #### [facility] [address] [address] [address] Demetri Leahy Creatinine [Mass/Vol] 0.79 mg/dL Normal 0.55-1.[address] [facility] Comment on above: Performed By: #### T 7, TSH, LIPID, CMP #### [facility] [address] [address] [address] Demetri Leahy EGFR-AF FRENCH >60 Normal >=60 [facility] Comment on above: Performed By: #### T 7, TSH, LIPID, CMP #### [facility] [address] [place] [address] Dr. Demetri Leahy EGFR-NON AF FRENCH >60 Normal >=60 [facility] Comment on above: Performed By: #### T 7, TSH, LIPID, CMP #### [facility] [address] [place] [address] Dr. Demetri Leahy Globulin (S) [Mass/Vol] 3.3 g/dL Normal [facility] Comment on above: Performed By: #### T 7, TSH, LIPID, CMP #### [facility] [address] [place] [address] Dr. Demetri Leahy Glucose [Mass/Vol] 86 mg/dL Normal 74-[address] [facility] Comment on above: Performed By: #### T 7, TSH, LIPID, CMP #### [facility] [address] [place] [address] Dr. Demetri Leahy Potassium [Moles/Vol] 4.1 mmol/L Normal 3.5-5.1 [facility] Comment on above: Performed By: #### T 7, TSH, LIPID, CMP #### [facility] [address] [place] [address] Dr. Demetri Leahy Protein [Mass/Vol] 7.1 g/dL Normal 6.4-8.2 [facility] Comment on above: Performed By: #### T 7, TSH, LIPID, CMP #### [facility] [address] [place] [address] Dr. Demetri Leahy Sodium [Moles/Vol] 147 mmol/L Critically high 136-145 [facility] Comment on above: Performed By: #### T 7, TSH, LIPID, CMP #### [facility] [address] [place] [address] Dr. Demetri Leahy Urea nitrogen [Mass/Vol] 30.0 mg/dL Critically high 7.0-18.[address] [facility] Comment on above: Performed By: #### T 7, TSH, LIPID, CMP #### [facility] [address] [address] [address] Demetri Leahy Urea nitrogen/Creatini ne [Mass ratio] 38.0 mg/mg Normal [facility] Comment on above: Performed By: #### T 7, TSH, LIPID, CMP #### [facility] [address] [address] [address] Demetri Leahy Quick Strepon 01-16-2023 S. pyogenes Org specific cx Ql (Throat) Negative [employer] Strep [employer] Other TSHon 01-16-2023 TSH 1.389 uIU/mL Normal 0.358-3.740 [facility] Comment on above: Performed By: #### T 7, TSH, LIPID, CMP #### [facility] [address] [address] [address] Demetri Leahy COVID/FLU RT-PCRon 2 SARS-CoV-2 (COVID-19) RNA KARTHIK+probe Ql (Unsp spec) Negative [employer] Other COVID/FLU RT-PCR Negative [employer] Other [employer] St[employer] 09-04-2022 S. pyogenes Org specific cx Ql (Throat) Negative [employer] Other [employer] Strep [employer] Other COVID/FLU RT-PCRon 2 SARS-CoV-2 (COVID-19) RNA KARTHIK+probe Ql (Unsp spec) Negative [employer] Other COVID/FLU RT-PCR Negative [employer] Other [employer] Strep[employer] 08-27-2022 S. pyogenes Org specific cx Ql (Throat) Negative [employer] Other Quick Strep [employer] Other PROF CHEM 8 (BAS METB)on Anion gap [Moles/Vol] 13.6 mmol/L Normal [facility] Comment on above: Performed By: #### B MP #### [facility] [address] [address] [address] Demetri Leahy Calcium [Mass/Vol] 9.0 mg/dL Normal 8.5-10.1 [facility] Comment on above: Performed By: #### B MP #### [facility] [address] [address] [address] Demetri Leahy Chloride [Moles/Vol] 105 mmol/L Normal 98-107 [facility] Comment on above: Performed By: #### B MP #### [facility] [address] [address] [address] Demetri Leahy CO2 [Moles/Vol] 26.9 mmol/L Normal 21.0-32.0 [facility] Comment on above: Performed By: #### B MP #### [facility] [address] [address] [address] Demetri Leahy Creatinine [Mass/Vol] 1.04 mg/dL Critically high 0.55-1.02 [facility] Comment on above: Performed By: #### B MP #### [facility] [address] [address] [address] Demetri Leahy EGFR-AF FRENCH >60 Normal >=60 [facility] Comment on above: Performed By: #### B MP #### [facility] [address] [address] [address] Demetri Leahy EGFR-NON AF FRENCH 54 mL/min/1.73m2 Critically low >=60 [facility] Comment on above: Performed By: #### B MP #### [facility] [address] [address] [address] Demetri Leahy Glucose [Mass/Vol] 99 mg/dL Normal 74-106 [facility] Comment on above: Performed By: #### B MP #### [facility] [address] [address] [address] Demetri Leahy Potassium [Moles/Vol] 4.5 mmol/L Normal 3.5-5.1 [facility] Comment on above: Performed By: #### B MP #### [facility] [address] [address] [address] Demetri Leahy Sodium [Moles/Vol] 141 mmol/L Normal 136-145 [facility] Comment on above: Performed By: #### B MP #### [facility] [address] [address] [address] Demetri Leahy Urea nitrogen [Mass/Vol] 44.0 mg/dL Critically high 7.0-18.[address] [facility] Comment on above: Performed By: #### B MP #### [facility] [address] [address] [address] Demetri Leahy Urea nitrogen/Creatini ne [Mass ratio] 42.3 mg/mg Normal [facility] Comment on above: Performed By: #### B MP #### [facility] [address] [place] [address] Dr. Demetri Leahy PROF CHEM 8 (BAS METB)on Anion gap [Moles/Vol] 10.3 mmol/L Normal [facility] Comment on above: Performed By: #### B MP #### [facility] [address] [place] [address] Dr. Demetri Leahy Calcium [Mass/Vol] 8.6 mg/dL Normal 8.5-10.[address] [facility] Comment on above: Performed By: #### B MP #### [facility] [address] [place] [address] Dr. Demetri Leahy Chloride [Moles/Vol] 107 mmol/L Normal 98-107 [facility] Comment on above: Performed By: #### B MP #### [facility] [address] [place] [address] Dr. Demetri Leahy CO2 [Moles/Vol] 29.0 mmol/L Normal 21.0-32.0 [facility] Comment on above: Performed By: #### B MP #### [facility] [address] [place] [address] Dr. Demetri Leahy Creatinine [Mass/Vol] 1.42 mg/dL Critically high 0.55-1.[address] [facility] Comment on above: Performed By: #### B MP #### [facility] [address] [address] [address] Demetri Leahy EGFR-AF FRENCH 46 mL/min/1.73m2 Critically low >=[address] [facility] Comment on above: Performed By: #### B MP #### [facility] [address] [address] [address] Demetri Leahy EGFR-NON AF FRENCH 38 mL/min/1.73m2 Critically low >=[address] [facility] Comment on above: Performed By: #### B MP #### [facility] [address] [address] [address] Demetri Leahy Glucose [Mass/Vol] 91 mg/dL Normal 74-[address] [facility] Comment on above: Performed By: #### B MP #### [facility] [address] [address] [address] Demetri Leahy Potassium [Moles/Vol] 5.3 mmol/L Critically high 3.5-5.[address] [facility] Comment on above: Performed By: #### B MP #### [facility] [address] [address] [address] Demetri Leahy Sodium [Moles/Vol] 141 mmol/L Normal 136-[address] [facility] Comment on above: Performed By: #### B MP #### [facility] [address] [address] [address] Demetri Leahy Urea nitrogen [Mass/Vol] 48.0 mg/dL Critically high 7.0-18.[address] [facility] Comment on above: Performed By: #### B MP #### [facility] [address] [address] [address] Demetri Leahy Urea nitrogen/Creatini ne [Mass ratio] 33.8 mg/mg Normal [facility] Comment on above: Performed By: #### B MP #### [facility] [address] [address] [address] Demetri Leahy BN ELBOW COMPLETE MIN. 3 VIE WSon 07-10-2021 BN ELBOW COMPLETE MIN. 3 VIEWS Patient Name: LUJAN, CANDY STUDY: ELBOW COMPLETE MIN 3 VIEWS Left INDICATION: L elbow trauma. COMPARISON: None ACCESSION NUMBER(S): [id number] ORDERING CLINICIAN: JACQUELINE ROBLES FINDINGS: Heterotopic ossification adjacent to the medial epicondyle of the distal humerus suggesting either chronic epicondylitis or remote injury. No acute fracture dislocation. IMPRESSION: Heterotopic ossification adjacent to the medial epicondyle of the distal humerus suggesting either chronic epicondylitis or remote injury. Electronically signed by: DOLORES PRICE MD Normal [facility] BN KNEE; COMPLT, 4 OR MORE V IEWSon 07-10-2021 BN KNEE; COMPLT, 4 OR MORE VIEWS Patient Name: PALLAVI LUJAN STUDY: KNEE; COMPLT, 4 OR MORE VIEWS INDICATION: knee injury after fall. COMPARISON: None ACCESSION NUMBER(S): [id number] ORDERING CLINICIAN: ADELSO LUTHER FINDINGS: Mild osteoarthritis right knee with small posterior loose body. Remote posttraumatic changes from prior MCL injury with heterotopic ossification. No acute fracture or osseous abnormality otherwise. IMPRESSION: Mild osteoarthritis right knee with small posterior loose body. Remote posttraumatic changes from prior MCL injury with heterotopic ossification. Electronically signed by: DOLORES PRICE MD Normal [facility] NR CT C-SPINE WO CONTRASTon 07-10-[address] C-SPINE WO CONTRAST Patient Name: PALLAVI LUJAN STUDY: CT HEAD WO CONTRAST; CT C-SPINE WO CONTRAST; 07/10/2021 6:48 pm INDICATION: intox, head trauma, Lie Flat: Yes; fall at [employer], neck pain, Lie Flat: Yes COMPARISON: None. ACCESSION NUMBER(S): [id number]; [id number] ORDERING CLINICIAN: JACQUELINE ROBLES; ADELSO LUTHER TECHNIQUE: Axial noncontrast CT images of head with coronal and sagittal reconstructed images. Axial noncontrast CT images of the cervical spine with coronal and sagittal reconstructed images. FINDINGS: CT HEAD: BRAIN PARENCHYMA: No evidence of acute intraparenchymal hemorrhage or acute large territory ischemic infarct. No mass-effect, midline shift, or effacement of cerebral sulci. Delgado-white matter distinction is preserved. VENTRICLES and EXTRA-AXIAL SPACES: No acute extra-axial or intraventricular hemorrhage. Ventricles and sulci are age-concordant. Cystic space in the posterior fossa between the posterior aspects of the cerebellar hemispheres demonstrates density similar to CSF, likely an incidental arachnoid cyst. PARANASAL SINUSES/MASTOIDS: No hemorrhage or air-fluid levels within the visualized paranasal sinuses. The mastoid air cells are well-aerated. CALVARIUM/ORBITS: There is a scalp hematoma overlying the left frontal bone without associated skull fracture or intracranial hemorrhage. The orbits and globes are intact to the extent visualized. CT CERVICAL SPINE: PREVERTEBRAL SOFT TISSUES: Within normal limits. CRANIOCERVICAL JUNCTION: Intact. There are mild productive degenerative changes at the atlantodental joint. ALIGNMENT: No traumatic malalignment or traumatic facet widening. VERTEBRAE: No acute fracture. Vertebral body heights are maintained. SPINAL CANAL/INTERVERTEBRAL DISCS: No high-grade spinal canal stenosis. There is mild loss of intervertebral disc height at C5-6 and C6-7. NEURAL FORAMINA: Multilevel uncovertebral joint and facet arthropathy notably contribute to moderate neural foraminal narrowing on the right at C4-C5, C5-C6 and C6-C7. OTHER: There are multiple missing teeth, with incomplete visualization of the oral cavity. Prominent cervical lymph nodes which are likely reactive. IMPRESSION: 1. Left frontal scalp hematoma without associated skull fracture, intracranial hemorrhage, or other acute intracranial abnormality. 2. No acute fracture or traumatic malalignment of the cervical spine. I personally reviewed the images/study and I agree with the findings as stated. This study was interpreted at [facility], [place], [place]. Electronically signed by: DO Omari REED [facility] NR CT HEAD WO CONTRASTon NR CT HEAD WO CONTRAST Patient Name: PALLAVI LUJAN STUDY: CT HEAD WO CONTRAST; CT C-SPINE WO CONTRAST; 07/10/2021 6:48 pm INDICATION: intox, head trauma, Lie Flat: Yes; fall at [employer] game, neck pain, Lie Flat: Yes COMPARISON: None. ACCESSION NUMBER(S): [id number]; [id number] ORDERING CLINICIAN: JACQUELINE ROBLES; ADELSO LUTHER TECHNIQUE: Axial noncontrast CT images of head with coronal and sagittal reconstructed images. Axial noncontrast CT images of the cervical spine with coronal and sagittal reconstructed images. FINDINGS: CT HEAD: BRAIN PARENCHYMA: No evidence of acute intraparenchymal hemorrhage or acute large territory ischemic infarct. No mass-effect, midline shift, or effacement of cerebral sulci. Delgado-white matter distinction is preserved. VENTRICLES and EXTRA-AXIAL SPACES: No acute extra-axial or intraventricular hemorrhage. Ventricles and sulci are age-concordant. Cystic space in the posterior fossa between the posterior aspects of the cerebellar hemispheres demonstrates density similar to CSF, likely an incidental arachnoid cyst. PARANASAL SINUSES/MASTOIDS: No hemorrhage or air-fluid levels within the visualized paranasal sinuses. The mastoid air cells are well-aerated. CALVARIUM/ORBITS: There is a scalp hematoma overlying the left frontal bone without associated skull fracture or intracranial hemorrhage. The orbits and globes are intact to the extent visualized. CT CERVICAL SPINE: PREVERTEBRAL SOFT TISSUES: Within normal limits. CRANIOCERVICAL JUNCTION: Intact. There are mild productive degenerative changes at the atlantodental joint. ALIGNMENT: No traumatic malalignment or traumatic facet widening. VERTEBRAE: No acute fracture. Vertebral body heights are maintained. SPINAL CANAL/INTERVERTEBRAL DISCS: No high-grade spinal canal stenosis. There is mild loss of intervertebral disc height at C5-6 and C6-7. NEURAL FORAMINA: Multilevel uncovertebral joint and facet arthropathy notably contribute to moderate neural foraminal narrowing on the right at C4-C5, C5-C6 and C6-C7. OTHER: There are multiple missing teeth, with incomplete visualization of the oral cavity. Prominent cervical lymph nodes which are likely reactive. IMPRESSION: 1. Left frontal scalp hematoma without associated skull fracture, intracranial hemorrhage, or other acute intracranial abnormality. 2. No acute fracture or traumatic malalignment of the cervical spine. I personally reviewed the images/study and I agree with the findings as stated. This study was interpreted at [facility], [place], [place]. Electronically signed by: DO Omari REED [facility] Provider Note - ED v3on 06-22 Provider Note - ED v3 Provider Note: Chart Review: ED NOTES ED NOTES: The patient is a 56-year-old female who presents to the ER with complaint of fall during football game. The patient states she tripped over a barrier landing on her face. Denies loss of conscious. She suffered an abrasion to the bridge of her nose, laceration to her lower lip and abrasion to her right knee. She also reports some neck pain after the fall. Denies any other injuries. Denies numbness or ting to extremities. She was transported the ER by EMS. Tetanus is up-to-date. Denies any headache, epistaxis, any loose or missing teeth, jaw pain, chest pain, palpitations, abdominal pain, nausea, vomiting or diarrhea. She also has abrasions to both hands. Denies any pain to her shoulders, elbows wrists or fingers. HISTORY OF PRESENTING ILLNESS PALLAVI is a 56 year old Female and was seen by me at 10-Jul-2021 17:17 for a chief complaint of fall (fell No LOC ,pt present with facial lacerations.) . The historian is the patientspouse. Triage Information: Most recent Vital Sign Value Date Temp (F): 97.5 07-10-2021 17:10 Temp (C): 36.4 07-10-2021 17:10 Heart Rate (beats/min): 78 07-10-2021 17:10 Respirations (breaths/min): 16 07-10-2021 17:10 SpO2 (%): 96 07-10-2021 17:10 BP Systolic (mm Hg): 127 07-10-2021 17:10 BP Diastolic (mm Hg): 68 07-10-2021 17:10 PAST MEDICAL HISTORY PSYCHOSOCIAL SCREENING: NO: concerns for safety at home, feelings of depression, feels like hurting others and feels like hurting self CURRENT OR FORMER SUBSTANCE USE: Tobacco/Nicotine Use: never smoker Alcohol Use: denies Drug Use: denies,Drug 2 Use: denies ALLERGIES/INTOLERANCES: Allergy Allergen: DrugAllergiesUnable to Obtain Type: Reaction: Allergen: Cat Type: Environment Reaction: Angioedema HEALTH HISTORY: No documented data. OUTPATIENT MEDICATIONS: Home Medications Review Status for Reconciliation: Not Done Med Status: Patient Currently Takes Medications Drug Name: Peridex 0.12% mucous membrane liquid Instructions: 15 milliliter(s) orally 3 times a 1day SIGNIFICANT EVENTS: Immunizations Description:Tdap Past Medical History Description:NONE REVIEW OF SYSTEMS CONSTITUTIONAL: Negative for: chills and fever CARDIOVASCULAR: Negative for: chest pain and diaphoresis RESPIRATORY: Negative for: cough and dyspnea MUSCULOSKELETAL: POSITIVE for: joint pain (right knee injury) INTEGUMENTARY: POSITIVE for: abrasions; All other systems reviewed and are negative PHYSICAL EXAM CONSTITUTIONAL: Well appearing, well nourished, awake, alert, oriented to person, place, time/situation and in no apparent distress. HENMT: Head Examination: EVIDENCE OF TRAUMA and SWELLING (contusion with swelling forhead) Face: TENDERNESS and SIGNS OF TRAUMA (abrasion bridge of nose, no epistaxis, septal hematoma or deformity) Ear: - BILATERAL TM's CLEAR Nose: (abrasion bridge of nose) Mouth: normal mouth inspection Teeth: no visible abnormalities (no intra oral lacerations, no malocclusion) Throat: normal pharynx EYES: Clear bilaterally, pupils equal, round and reactive to light. CARDIOVASCULAR: Normal rate, regular rhythm. Heart sounds S1, S2. No murmurs, rubs or gallops. PMI non-displaced. RESPIRATORY: Breath sounds clear and equal bilaterally. GASTROINTESTINAL: Abdomen soft, non-distended, no rebound, no guarding. Bowel sounds normal in all 4 quadrants. MUSCULOSKELETAL: Neck Exam: SPASMS and VERTEBRAL POINT TENDERNESS (tenderness C7) Weight Bearing: able Pelvis: stable Calf Tenderness: non-tender Spinal Exam: ROM Limitation: WITH ACTIVITY Tenderness Location: CERVICAL Extremity Exam: Left Lower Findings: normal Right Lower Location: knee Right Lower Findings: TENDERNESS (abrasion right knee, no effusion good ROM , hip , thight , tib/fib, ankle and foot non tender) Left Upper Location: finger and hand (abrasion 5th digit, small bruise from attempted IV start dorsal aspect hand, Good ROM all 5 digits) Right Upper Location: finger and hand Right Upper Findings: (abrasion palm) Pedal Edema: Bilateral: absent Vascular: no vascular compromise and pulses full and equal bilaterally NEUROLOGICAL: Alert and oriented, no focal deficits, no motor or sensory deficits. SKIN: Skin Color: normal for race Skin Temperature: warm Capillary Refill: less than 2 seconds Skin Turgor: resilient/elastic Wound Type: ABRASION(S); BRUISING and LACERATION(S) (abrasions forehead, bridge of nose, both hands and RIGHT knee, bruise to dorsum of left hand from IV start attempt) Wound #1: Location: lower lip Length: 1.2 cmPSYCHIATRIC: Alert and oriented to person, place, time/situation. normal mood and affect. No apparent risk to self or others. HEME/LYMPH: No adenopathy or splenomegaly. No cervical, supraclavicular or inguinal lymphadenopathy. CRITICAL CARE RESULTS: Radiology Results: Impression: Left frontal scalp hematoma without assoc (more content not included)... [facility] Risk Screen - Adult Emergenc yon 07-10-2021 Risk Screen - Adult Emergency Preferred Language: Preferred Language: Preferred Language for Discussing Health Care (patient/designee)German Advanced Directives: Advance Directive/DNRno Advance Directive Information Givenpatient/family declined Family Violence Adult: Abuse Screen: Are you or have you been threatened or abused physically, emotionally, or sexually by anyoneno Learning Assessment (Patient): Learning Assessment (Patient): Patient is Able to be Assessed for Learningyes Factors Influencing Readiness to Learnpain Factors that Impact Ability to Learnnone Devices/Methods Used to Communicatenone Learning Preferencesaudio Cultural Considerationsnone Developmental Considerationsnone Orthodoxy Considerationsnone Other Learnersnone Learning Assessment (Other Learner): Learning Assessment (Other Learner): Other learner availableno Pressure Injury/TB/Substance: Pressure Injury: Pressure Injury Present on Admissionno Do you have a coughno Smoking Statusnever smoker (1) Alcohol Usedenies(1) Drug Usedenies (1) Drug 2 Usedenies (1) Admission Risk Screen: Significant IndicatorsComplete CAGE: CAGE: Is this an injured patient at a Trauma Center ([facility]/[place]): no Electronic Signatures: Uzma Menendez (CONSUELO) (Signed 10-Jul-2021 18:54) Authored: Preferred Language, Advanced Directives, Family Violence Adult, Learning Assessment (Patient), Learning Assessment (Other Learner), Pressure Injury/TB/Substance, Pressure Injury, CAGE Last Updated: 10-Jul-2021 18:54 by Uzma Menendez (CONSUELO) References: 1. Data Referenced From Provider Note - ED v3 10-Jul-2021 17:29 [facility] Triage - EDon 07-10-2021 Triage - ED Quick Triage: Are You no Have You Given In The Last 6 Weeksno Are You Currently Breastfeedingno Chart Review: ARRIVAL INFORMATION Mode of Arrival: ambulance [facility] CHIEF COMPLAINT PALLAVI LUJAN is a Female patient with a chief complaint of fall (fell No LOC ,pt present with facial lacerations.). Triage Date/Time: 10-Jul-2021 17:10 ANAY: 3V Vital Signs: Temperature: 97.5F ( 36.4C) taken forehead Blood Pressure: 127/68 Mean: Heart Rate: 78 Respiratory Rate: 16 Pulse Oximetry: 96% on room air, no respiratory support. Height: 5 feet 5.00 inches. 165.1 CM Weight: 207.2 pounds. Calculated 94.0 kg. (stated) Calculated BMI (kg/m2): 34.485 Calculated BSA (m2) 2.08 Merlin Coma Scale: Best Eye Response: (E4) spontaneous Best Motor Response: (M6) obeys commands Best Verbal Response: (V5) oriented Silverthorne Score: 15 Cough lasting greater than 3 weeks: no Allergies: yes Mask applied: yes Patient has homicidal thoughts: no Risk Screens Suicide Risk Screen In the Past Month: Have you wished you were or wished you could go to sleep and not wake up no In the Past Month: Have you had any actual thoughts of killing yourself no In Your Lifetime: Have you ever done anything, started to do anything, or prepared to do anything to end your life no Grajeda Fall Scale Screening Has the patient fallen before (or is the patient in the ED as a result of a fall) has not had a fall Does the patient have an impaired gait does not have impaired gait Is the patient cognitively impaired not cognitively impaired Interventions: Grajeda Fall Interventions: LOW INTERVENTIONS: *patient oriented to surroundings and call system, * patient/family falls education completed and documented, *patients fall status communicated during bedside handoff, *whiteboard updated, *mode of toileting discussed with patient, *bed in low position with brakes locked, *call light in reach, * non-skid footwear TRAVEL HISTORY Travel History Coronavirus Screening: no exposure or symptoms Travel Exposure History: NO travel to International locations in the past 30 days PAIN Pain Scale Used: SUYAPA Past Medical History: Past Medical History Reviewedyes NONE: Past Medical History, Active Electronic Signatures: Lazarus Gupta) (Signed 10-Jul-2021 17:15) Entered: Risk Screens, Pain, Travel History, Chart Review, Scores, Past Medical History Authored: Quick Triage, Risk Screens, Pain, Travel History, Chart Review, Scores, Past Medical History Last Updated: 10-Jul-2021 17:15 by Lazarus Gupta (CONSUELO) [facility] Cardiovascular Lab Reporton 09-22-2020 Cardiovascular Lab Report [facility] Patient Name: Pallavi Lujan MR #: [id number] Physician: Patrice No, Department of M.D. Medicine Service Date: 09/21/2020 Division of Birthdate: 1965 Cardiology Room #: [facility] Cardiovascular Services [place] [address] Cardiovascular Laboratory Report FINAL IMPRESSIONS: 1. 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 2. Otherwise nonobstructive coronary arteries. 3. Normal global left ventricular systolic function by noninvasive imaging. 4. Normal right-sided heart pressures with mildly elevated pulmonary capillary wedge pressure. 5. Normal cardiac output/cardiac index. RECOMMENDATIONS: 1. Consider alternate etiologies for the patient's symptomatology namely pulmonary and/or obesity related. 2. Aggressive cardiovascular risk factor modification. 3. Optimization of medical management; aspirin, high-intensity statin therapy, a beta denzel, plus or minus an angiotensin-converting enzyme inhibitor indicated. 4. Follow up with Dr. Winston Sotelo as scheduled. 5. Follow up with Dr. No as scheduled. PROCEDURES: Ultrasound-guided access to the right internal jugular vein, right heart catheterization, ultrasound-guided access to the right radial artery, bilateral selective coronary angiography. METHODS: After risks, benefits, and alternatives were explained, written informed consent was obtained. The patient was prepped and draped in usual sterile fashion over the right neck and right wrist. Using 1% lidocaine solution, local infiltration anesthesia was achieved. Using a modified Seldinger technique and under ultrasound guidance, access to the right internal jugular vein was obtained. A 6-Czech 11 cm sheath was inserted without difficulty. A Ordonez catheter was used for right heart catheterization measuring pressures and pulmonary capillary wedge, pulmonary artery, right ventricular and right atrial positions. Oxygen saturations were obtained and cardiac output/cardiac index was calculated using the Iker principle. Local infiltration anesthesia was achieved over the right wrist. Under ultrasound guidance and using a micropuncture kit, access to the right radial artery was obtained. A 6-Czech glide sheath was inserted without difficulty. Bilateral selective coronary angiography was performed using JL-4, 5, and JL 3.5 catheters. After reviewing the images, it was elected to conclude the procedure. All catheters were removed. The radial sheath was removed with application of a TR band per protocol achieving optimal hemostasis. Overall, the patient tolerated the procedure well. There were no overt complications. She was to be transferred to the holding area in stable condition. FINDINGS: Hemodynamics. AO 140/75. RA 12. RV 39/80 (12). PA 39/11 (28). PCWP 16. TPG 12 Cardiac output 6.85/cardiac index 2.97. AO sat 93% /PA sat 61%. LEFT VENTRICULOGRAPHY: This was not performed. Ejection fraction is normal by noninvasive imaging. CORONARY ARTERIES: Left main coronary artery. This arises from the left coronary cusp. It is a long vessel that bifurcates into the left circumflex and left anterior descending coronary artery and is free of significant stenosis. Left anterior descending coronary artery. This shows a 20% to 30% ostial stenosis and a 30% to 40% mid vessel stenosis. This appears unchanged. Left circumflex coronary artery. This is a small caliber vessel that continues as an AV groove branch. It gives rise to a large branching first obtuse marginal. There were no significant stenosis. Right coronary artery. This is a large dominant vessel giving rise to the posterior descending and posterolateral branches. It shows mild plaque. INDICATIONS: Exertional shortness of breath, abnormal stress test. Electronically Signed by: Patrice No M.D. 09/23/2020 01:05 P Patrice No M.D. Date Dict: 09/21/2020/04:38 Harrison/Patrice No M.D. Date Trans: 09/22/2020 02:14 Fidencio/elma [id number] cc: Winston Sotelo M.D. [address] [place] [id number] [place] [facility] Alfonso 02-01-2020 [place] Telephone ([employer]) PALLAVI LUJAN ([id number]) 1965 F Date Time Provider Department 02/01/20 ARLETTE HERNANDEZ (PA) During your visit today, we recorded the following information about you: Arlette Hernandez PA-C, PA 02/01/2020 10:03 AM Signed Brant, Thank you for the referral, this patient meets criteria for COVID-19 testing in accordance with criteria found on the [facility] Intranet COVID19 Toolkit as of February 01, 2020 10:02 AM Please inform the patient that the test has been ordered, and that the [facility] Scheduling Department will call to schedule test within 8-12 hours. In the meantime please advise the patient to self-quarantine in accordance with CDC recommendations. Please extend our best wishes to the patient. Respectfully, RUFINA Chavez PA-C 02/01/2020 10:20 AM Signed I called pt. Pt reports that she was already informed that meets criteria for testing and appointment has been schedule already. Allergies As of Date: 02/01/2020 (No Known Allergies) Date Reviewed: 05/19/2019 Reviewed by: Vikas Santos - Fully Assessed Reason for Visit: Covid-19 Hotline [1020] Primary Visit Diagnosis:Suspected Covid-19 Virus Infection [R68.89] Order(s):2019 CORONAVIRUS [SQCOVID] Order #: [id number] [facility] COVID-19 HOME MONITORING [[id number]] Order #: [id number] Prescriptions as of 02/01/2020 Sig: ATORVASTATIN 80 MG TABLET Take 80 mg by mouth once saima* METOPROLOL SUCCINATE ER 25 MG* Take 25 mg by mouth once saima* FUROSEMIDE 20 MG TABLET Take 20 mg by mouth once saima* ASPIRIN 81 MG TABLET,DELAYED * Take 81 mg by mouth. TRAMADOL 50 MG TABLET OXYBUTYNIN CHLORIDE 5 MG TABL* AMLODIPINE 5 MG TABLET LISINOPRIL 40 MG TABLET CELECOXIB 200 MG CAPSULE PANTOPRAZOLE 40 MG TABLET,DEL* Problem List As Of Date 02/01/2020 Noted Resolved Anemia [D64.9] 02/07/2018 Arthritis [M19.90] 02/07/2018 Asthma [J45.909] 02/07/2018 Back pain [M54.9] 02/07/2018 Current smoker [F17.200] 02/07/2018 High blood pressure [I10] 02/07/2018 History of pneumonia [Z87.01] 02/07/2018 Stress [F43.9] More... Anxiety [F41.9] BMI 40.0-44.9, adult ([facility]) [Z68.41] Encounter Status:Closed by ARLETTE HERNANDEZ [facility] PALLAVI LUJAN ([id number]) 1965 F Date Time Provider Department 02/01/20 DEBBIE BORGES (RN) BLAZE During your visit today, we recorded the following information about you: Debbie Borges RN, RN 02/01/2020 9:32 AM Signed Telephone Nurse Triage for Flu-like symptoms Patient evaluated by telephone nursing triage.patient seen at [place] [facility] last nite.-Dx Bronchitis. zpak started and Prescribed Albuterol. Advised by ED to have COVID-19. H/o HTN. No SOB. Temp currently 99.7. assisted pt signon to [facility]. Pallavi Lujan is a female who presents with 1 days of symptoms that are staying the same. Started last nite at 7 pm. Symptoms include: body aches and fever. 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 Pallavi is unable to speak in complete sentences due to obvious respiratory distress or audible wheezing Eugenia Olivo sounds very sick or weak to the triage nurse No If yes to any two of the above, send patient to the ED and assess need to call 911. Fever Yes. Temperature: 102.7 Cough No Are you more out of breath or winded than usual ? Yes-on exertion past few weeks. Diarrhea No High Risk Category: Hypertension FEVER (>100.4) must be present AND an additional symptom above AND high risk category route to PCP/Provider pool for follow up. Body aches Yes Congestion / runny nose No Sore throat No If only symptoms are runny nose and sore throat, and body aches provide usual self-care advice and route to PCP for follow up. Other sick contacts: Strep: No Influenza: No Disposition/Patient Instructions: PCP/[facility] Triage Required Patient call routed to make virtual/telephonic appointment with PCP. If no PCP, send to [facility]. Patient instructed to call back if worsening signs and symptoms. All questions answered. CARE ADVICE FOR FEVER: REASSURANCE AND EDUCATION: The presence of a fever usually means that you have an infection. Most fevers are not serious and may actually help the body fight infection. The goal of fever therapy is to bring the fever down to a comfortable level. Use the following definitions to help put the level of fever into proper perspective: ? 100-102 F (37.8 - 38.9 C): Low-grade fevers and may help body fight infection. ? 102-104 F (38.9 - 40 C): Moderate-grade fevers; cause discomfort. ? Over 104 F (over 40 C): High fevers; cause discomfort, weakness, headache, lethargy. ? Over 106 F (over 41 C): The fever itself can be harmful. FOR ALL FEVERS: ? Drink cold fluids to prevent dehydration. ? Dress in 1 layer of lightweight clothing and sleep with 1 light blanket. ? For fevers less than 101 F (38.3 C), fever medicines are usually not necessary. FEVER MEDICINES: ? For fever relief, take acetaminophen. ? Treat fevers above 101 F (38.3 C). ? The goal of fever therapy is to bring the fever down to a comfortable level. Remember that fever medicine usually lowers fever 2-3 F (1-1.5 C). ACETAMINOPHEN (E.G., TYLENOL): ? Take 650 mg (two 325 mg pills) by mouth every 4-6 hours as needed. Each Regular Strength Tylenol pill has 325 mg of acetaminophen. The most you should take each day is 3,250 mg (10 Regular Strength pills a day). ? Another choice is to take 1,000 mg (two 500 mg pills) every 8 hours as needed. Each Extra Strength Tylenol pill has 500 mg of acetaminophen. The most you should take each day is 3,000 mg (6 Extra Strength pills a day). EXTRA NOTES: ? Acetaminophen is thought to be safer than ibuprofen or naproxen for people over 65 years old. Acetaminophen is in many OTC and prescription medicines. It might be in more than one medicine that you are taking. You need to be careful and not take an overdose. An acetaminophen overdose can hurt the liver. ? [employer], the company that makes Tylenol, has different dosage instructions for Tylenol in [place] and the [place]. In [place], the maximum recommended dose per day is 4,000 mg or twelve (12) Regular-Strength (325 mg) pills. In the [place], [employer] recommends a maximum dose of ten (10) Regular-Strength (325 mg) pills. ? Before taking any medicine, read all the instructions on the package. PATIENT INSTRUCTIONS: At present, these are our recommendations regarding the coronavirus (COVID-19) outbreak: - Wash your hands regularly for at least 20 seconds with soap and water, especially before eating. - If soap/water are unavailable, use a hand rn baby with at least 60% alcohol - Avoid touching your eyes, nose and mouth with unwashed hands. - Avoid close contact (within 6 feet) with people who are sick. - Stay home if you are feeling sick. - Cover your cough or sneeze with a tissue, then throw the tissue in the trash. - Standard household cleansers and wipes are effective in cleaning and disinfecting frequently touched objects and surfaces. - Skip events that put you in contact with large groups of people (sporting events, concerts, theme abarca, etc). - Avoid unnecessary domestic and international travel, including travel through large international airports. - If traveling, wipe down your airplane seat (and tray) with a disinfecting wipe. If you have a fever, cough or shortness of breath, or are otherwise concerned you have COVID-19, we ask that you do not come to any [facility] facility without calling your primary care physician or speaking to a provider using a virtual visit using [facility] [employer]? Online. You will be evaluated to determine if you require being seen in person or if you meet CDC guidelines for testing for COVID-19 based on symptoms, travel and exposures. If you meet criteria for testing, your [facility] provider or primary care physician will advise how to proceed with testing - CDC recommends wearing cloth face coverings in public settings where other social distancing measures are difficult to maintain (e.g., grocery stores and pharmacies) especially in areas of significant community-based transmission. Cloth face coverings should: fit snugly but comfortably against the side of the face be secured with ties or ear loops include multiple layers of fabric allow for breathing without restriction be able to be laundered and machine dried without damage or change to shape Cloth face coverings should not be placed on young children under age 2, anyone who has trouble breathing, or is unconscious, incapacitated or otherwise unable to remove the mask without assistance. - There is no need to stop your immunosuppressive medications preemptively. - If you become sick, please let your doctor know, and discuss with them prior to stopping any medications. - At this point, we have no knowledge that patients on immunosuppressive medications are at higher risk of COVID-19 infection. - Most importantly, don't panic. By following basic prevention measures such as hand hygiene and cover your cough, you are helping to keep yourself and others healthy. Additional information can be found on the [facility] and [facility] web sites: https://www.cdc.gov/coronavi gustabo/2019-nCoV/index.html ? [email or web address] coronavirus SIGNATURE: Debbie Borges RN PATIENT NAME: Pallavi Lujan DATE: February 01, 2020 TIME: 8:49 AM Allergies As of Date: 02/01/2020 (No Known Allergies) Date Reviewed: 05/19/2019 Reviewed by: Vikas Santos - Fully Assessed Reason for Visit: Fever [47] Prescriptions as of 02/01/2020 Sig: ATORVASTATIN 80 MG TABLET Take 80 mg by mouth once saima* METOPROLOL SUCCINATE ER 25 MG* Take 25 mg by mouth once saima* FUROSEMIDE 20 MG TABLET Take 20 mg by mouth once saima* ASPIRIN 81 MG TABLET,DELAYED * Take 81 mg by mouth. OXYBUTYNIN CHLORIDE 5 MG TABL* AMLODIPINE 5 MG TABLET LISINOPRIL 40 MG TABLET CELECOXIB 200 MG CAPSULE TRAMADOL 50 MG TABLET PANTOPRAZOLE 40 MG TABLET,DEL* Problem List As Of Date 02/01/2020 Noted Resolved Anemia [D64.9] 02/07/2018 Arthritis [M19.90] 02/07/2018 Asthma [J45.909] 02/07/2018 Back pain [M54.9] 02/07/2018 Current smoker [F17.200] 02/07/2018 High blood pressure [I10] 02/07/2018 History of pneumonia [Z87.01] 02/07/2018 Stress [F43.9] More... 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 [facility] Comment on above: Result Comment: This test was developed and its performance characteristics determined by [facility]'s Adelso Carrasquillo [facility]. This test has been authorized by FDA under an Emergency Use Authorization (EUA). This test has been validated in accordance with the FDA's Guidance Document Policy for Diagnostics Testing in Laboratories Certified to Perform High Complexity Testing under CLIA prior to Emergency use Authorization for Coronavirus Disease 2019 during the Public Health Emergency issued on December 20, 2019. 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 Author Type: Physician Crm Consultant Type: Progress Notes Filed: 02/01/2020 12:52 PM Note Text: Telemedicine Visit - Distance Health Virtual Visit Note This Team Access Model visit is a virtual encounter. It required patient-provider interaction for the medical decision making as documented below. Patient seen on [employer] platform. [place] History of Present Illness Pallavi Lujna is a 54 year old old female presenting with a rash. She current;y has a HENDERSON, nausea, and fever for which she was seen in the ER last night. CXR normal. Influenza and strep negative. Given IV antibiotics in the ER and sent home with Zpak and instructions to get outpatient COVID testing. She did a [facility] ECO visit today to get COVID testing ordered- Results are pending now. She is doing another ECO visit now because she has noticed a red area or rash on the ankle. She had ankle surgery about 2 months ago and so, has ongoing swelling of the ankle. Now she has noticed a warm, tender, redness that does not lavelle in the medial ankle. No itching. The prior dermatologic history includes no rash like this. The patient reports no new exposures The patient also complains of headache, fever, nausea. The patient denies cough, rhinorrhea, shortness of breath, chest pain, abdominal pain,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 more during separation. Patient is aware of need for no drinking . Hasn't drank since broke ankle. Currently, the patient has frequent alcohol use. The patient denies current drug use.. The patient does not report social/occupational/legal consequences associated with drug or alcohol use. Currently, the patient has no reported substance abuse (prescription or illegal). Treatment included: The patient has never had any substance abuse treatment. The patient was given a handout: The Facts About Alcohol Use AND Your Bariatric Surgery. The patient quit smoking 1 year ago. The patient has no tobacco use. FAMILY OF ORIGIN Ms. Lujan was raised in an intact family. She described her childhood as difficult. Father was an alcoholic. Called fat girl everyday . The patient had 2 brothers, 2 sisters. 2 brothers have passed. The patient's parents are both . She is currently close with her family. MARITAL FAMILY/SIGNIFICANT RELATIONSHIPS Ms. Lujan has been 1x since 1998. Now lives with ex- and in a partnered relationship. The patient has 3 children. The patient currently lives with Fahad. The patient's significant other is supportive of her decision for surgery. She describes her family life as good. The patient will have Fahad help her after surgery during the recovery period. Other social supports include extended family. The patient reports that her social supports are supportive of her decision for surgery. Youngest son is encouraging her to stick with [facility]. Daughter is supportive and son who had surgery. EDUCATION/EMPLOYMENT The patient has completed 11 years of education (GED). Had a baby. Her achievement in school was average. 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 She has partially made plans for time off postsurgery. She is expecting to recover for 1 weeks postsurgery with son helping. Discussed need for more time. CURRENT STRESSORS: The patient reports the following stressors: ankle fracture/being dependent, son The patient denies relationship conflicts, work difficulties and financial problems COPING STRATEGIES The patient reports the following coping strategies: talking with social supports, family, movies, shopping. These coping strategies have been effective. The patient notes yazidism practice is: Advent; will think about whether she'd take blood products . The patient's cultural identity/ethnicity is: . LEISURE/EXERCISE The patient currently engages in minimal exercise . Trying chair exercises. Prior to fracture was on exercise bike for 30 minutes 5x/week. SLEEP: The patient reports problems falling asleep: No The patient reports problems staying asleep:Yes The patient reports the following quality of sleep:fair Total sleep time: 8 hours Patient is diagnosed with ALEKSANDAR:Yes The patient wears a CPAP for 4 hours; 7 days/week. MENTAL STATUS EXAMINATION: Appearance: normal grooming Eye contact: normal Rapport: average. Orientation: alert and oriented in all spheres (time, person, place, situation, object) Approach to evaluation/attitude toward examiner: cooperative Mood: calm and stable Affect: appropriate and mood congruent. Self worth: average. Body Image: Within Normal Limits Suicidal/homicidal ideation: Pt denied suicidal/homicidal ideation, plan and intent. Recall/Memory: normal Attention: normal Concentration:Normal Speech: within normal limits with regard to rate, tone and volume Psychomotor activity: average. Thought process: no evidence of formal thought disorder. Abstract thinking: normal. Though content: within normal limits Hallucinations/Illusions: none Intellectual functioning: average. Insight: intact Judgment: normal PQRS G CODES: BMI--[id number]: Calculated BMI above normal and follow-up plan was documented Tobacco--CPT II 1036 F: Current tobacco non-user Alcohol--CPT II 3016F: Patient screened for unhealthy alcohol use using a systematic screening method PROVISIONAL DIAGNOSTIC IMPRESSION Primary Diagnoses: Psychological Factors Affecting Morbid Obesity Rule Out: Alcohol Use Disorder Personality Diagnoses:Deferred Global Assessment of Functionin-61 Some mild symptoms or some difficulty in social, occupational, or school functioning, but generally functioning pretty well. IMPRESSIONS: 1) Based on the information gathered through the interview process , she appears to be psychologically stable at this time. Pt does evidence regular drinking including 2 binge drinking episodes per month.. The patient appeared to have reasonable expectations regarding surgery. The patient?s understanding of the surgery and the changes necessary post-operatively appears to be fair. 2) The patient denied and did not evidence clinically significant depression, anxiety, or irritability at this time. The patient reported a history of tobacco use/dependence but has been tobacco free for 1 year. The patient does not have a history of an eating disorder. Pt described the following maladaptive behavioral pattern: regular, significant social alcohol consumption. TREATMENT PLAN AND RECOMMENDATIONS: 1) The following items are needed to complete the psychological evaluation: *Complete Substance Risk Reduction Group and INDIVIDUAL [facility] PSYCHOLOGY APPOINTMENT AFTER COMPLETION OF GROUP (To schedule, call [phone]) *Continue to avoid alcohol in preparation for surgery *Consider decision to abstain from blood products and inform surgeon 2) The patient may benefit from the following during the surgery process: *continue with Weight Watchers and to help with decision regarding surgery consider: *participation in a Weight Loss Surgery support group * Get Set Group to optimize presurgical emotional and behavioral readiness (To schedule call [phone]) *Read Preparing for Weight Loss Surgery: Workbook (Treatments That Work) by Kris Bazzi, Reji Ndiaye, and Monse Alcantar ([employer], 2006) *continue CPAP Adherence *implement exercise program such as warm water aerobics, walking, or exercise that can be done from a chair *Follow up with psychology as an inpatient if needed *Follow up with psychology at 1, 3, 6, and 12 months postsurgery *Do not use alcohol, tobacco, and street drugs for 3 to 6 months prior to and after surgery. 3) Pt provided with Behavior Health Considerations re: bariatric surgery, reading and internet resources for facilitating postsurgical adjustment and permanent lifestyle change, and weight loss surgery support group information in her Surgical Guide. 4) The patient is to follow up in 6 weeks. 5) Above recommendations and treatment plan will be communicated back to the referring physician by way of the shared medical record. Thank you for this referral. Please feel free to call or page with any questions. Amelie Robledo Ph.D., Clinical Psychologist; [facility] Director of Behavioral Services BEHAVIORAL HEALTH BARIATRIC EVALUATION SUMMARY DATE : 05/26/2019 PATIENT NAME: Ms. Pallavi Lujan 1. Consent: Fair 2. Expectations:Fair 3. Social support :Good 4. Mental Health :Good 5. Chemical/Alcohol Abuse/Dependence: Guarded 6. Eating Behaviors:Good 7. Adherence : Good 8. Coping/Stressors:Fair 9. Overall Psychological Impression: Fair Normal [facility] CNCNPATEDon 05-19-2019 CNCNPATED Education ([facility]) PALLAVI LUJAN ([id number]) 1965 F Date Time Provider Department 05/19/19 10:00 AM VIKAS SANTOS (RD) [facility] Reason for Visit: Patient Education [91] Reassessment [674] Progress Notes: Vikas Santos RD 05/19/2019 12:30 PM Signed Nutritional Therapy Sleeve Gastrectomy Re-Assessment PROGRESS: Nutrition Intervention (date of last encounter 03/14/19 1. Continue to eat lean protein/fruit and vegetables for all meals - - met 2. Okay to replace breakfast with powdered whey protein (slimfast) with fairlife milk - - met 3. Continue to drink water as your main beverage - 64 ounces/day - - met 4. Continue to use the stationary/recumbent cycle as tolerated for 30 minutes/session 5-6 x per week. - - not met ? Pre op goal weight: 288 lbs prior to liquid fast ? CHANGES IN TREATMENT: Patient met goal(s): Partially Actions to implement interventions: Diet History: Breakfast - slimfast and almond milk; or breakfast bowl or furit or scrambled eggs/park Lunch - slimfast and almond milk Or taco soup, turkey with string cheese Snack -string cheese and turkey with fruit Dinner - corn on the boyle with grilled chicken/spices/rib and boccoli Beverages - water main beverage 3 bottles/day Vitamins/Supplements - Centrum adult with iron Exercise - none broke ankle CLINICAL IMPRESSIONS: excellent REVISIONS IN DIAGNOSIS: Diagnosis: has not changed. Allergies: Patient has no known allergies. Medications: Current Outpatient Medications Medication Sig Dispense Refill - atorvastatin (LIPITOR) 80 mg tablet Take 80 mg by mouth once daily. - metoprolol succinate ER (TOPROL XL) 25 mg 24 hr tablet Take 25 mg by mouth once daily. 3 - furosemide (LASIX) 20 mg tablet Take 20 mg by mouth once daily. - aspirin, enteric coated (ASPIRIN LOW DOSE) 81 mg EC tablet Take 81 mg by mouth. - traMADol (ULTRAM) 50 mg tablet 0 - oxybutynin (DITROPAN) 5 mg tablet - amLODIPine (NORVASC) 5 mg tablet - lisinopril (ZESTRIL, PRINIVIL) 40 mg tablet - celecoxib (CELEBREX) 200 mg capsule - pantoprazole DR (PROTONIX) 40 mg tablet No current facility-administered medications for this visit. (currently taking) Anthropometrics: Height: Last 1 Encounter Ht Readings: Date: Ht: 05/19/2019 165 cm (5' 4.96 ) Current weight: Last 1 Encounter Wt Readings: Date: Wt: 05/19/2019 122.5 kg (270 lb) Body mass index is 45.97 kg/m?. Resting Metabolic Rate: 1823 NUTRITION ASSESSMENT: Malnutrition Screening Significant unintentional weight loss? No Eating less than 75% of usual intake for more than 2 weeks? No Potential Signs of Inflammation: no identifiable sources RECOMMENDED MALNUTRITION DIAGNOSIS: NO MALNUTRITION IDENTIFIED Nutritional status: No Malnutrition Identified Educational materials provided: none this visit READINESS TO LEARN Cognitive ability: Alert and oriented Motivation to learn: Eager Family support: High - Very involved in pt care Instruction provided to: Patient Patient learns best by: Individual Instruction Written Instruction - Hand-outs Demonstration Factors affecting learning: None Physical limitations affecting learning: None Likelihood of Adherence: High Patient presents with 29 lbs weight loss since initial assessment in preparation for Sleeve Gastrectomy. Intentional loss. Exercise limited related to broken ankle. Booted for the past ~5 weeks. Fluids free of calories. Fluids free of calories, lower than recommended volume (consumes 48 ounces/day) Patient meets the National Institutes of Health guidelines for weight loss surgery and has [employer] therefore is required to complete 6 months of Nutrition Intervention for clearance for surgery. Today is session 5 of 6 Nutrition Diagnosis: Overweight Obesity, related to; food/nutrition - related knowledge deficit and physical inactivity, as evidenced by BMI above normative standard for age and gender and infrequent, low-duration and/or low-intensity physical activity. Nutrition Intervention 05/19/2019: Comprehensive Nutrition Education 1. After surgery, okay to take a combination bariatric capsule AND 1200 mg calcium citrate. 2. Okay to continue to use the protein and fruit once daily 3. Use the Healthy Plate Method of portion control - lunch and dinner 4 oz lean meat (fish, chicken, pork tenderloin, turkey, seafood, eggs/cheese 1/2 plate non starchy vegetables (salad, greens, cabbage, spinach, brussels sprouts, broccoli, carrots, celery, peppers, green beans, cauliflower) 1 cup starch/starchy vegetables (corn, peas, morelos beans, winter squash, sweet potato, rice, pasta, Potato) 4. Participate in sitting exercise/therapy as possible. YemiTnathanael Marquis 30 minutes each - every other day. 5. Increase water to 4 bottles/day Pre op goal weight: Surpassed! 280 lbs Nutrition Monitoring AND Evaluation: 1-2 # weight loss per week prior to surgery Criteria: weight check Need for Follow up: schedule June 13 at 2 pm Referred/Supervised by: Neo/Mayra MYERS Billing Type: Re-assess/15 min 2 units SIGNATURE: Vikas Santos RD PATIENT NAME: Pallavi Lujan DATE: May 19, 2019 TIME: 10:06 AM PAGER: [id number] Primary Visit Diagnosis:Class 3 severe obesity due to excess calories with body mass index (BMI) of 45.0 to 49.9 in adult, unspecified whether serious comorbidity present (HCC) [E66.01, Z68.42] Other Visit Diagnosis:Dietary counseling and surveillance [Z71.3] During your visit today, we recorded the following information about you: Weight Height 125.1 kg 1.65 m Allergies As of Date: 05/19/2019 (No Known Allergies) Date Reviewed: 05/19/2019 Reviewed by: Viaks Santos - Fully Assessed Prescriptions as of 05/19/2019 Sig: ATORVASTATIN 80 MG TABLET Take 80 mg by mouth once saima* METOPROLOL SUCCINATE ER 25 MG* Take 25 mg by mouth once saima* FUROSEMIDE 20 MG TABLET Take 20 mg by mouth once saima* ASPIRIN 81 MG TABLET,DELAYED * Take 81 mg by mouth. TRAMADOL 50 MG TABLET OXYBUTYNIN CHLORIDE 5 MG TABL* AMLODIPINE 5 MG TABLET LISINOPRIL 40 MG TABLET CELECOXIB 200 MG CAPSULE PANTOPRAZOLE 40 MG TABLET,DEL* Letter Text Encounter Status:Closed by VIKAS SANTOS on 05/19/19 [facility] PROGRESSon 05-19-2019 PROGRESS HNO ID: [id number] Author: Vikas Santos Service: ? Author Type: Registered Dietitian Type: Progress Notes Filed: 05/19/2019 12:30 PM Note Text: Nutritional Therapy Sleeve Gastrectomy Re-Assessment PROGRESS: Nutrition Intervention (date of last encounter 03/14/19 1. Continue to eat lean protein/fruit and vegetables for all meals - - met 2. Okay to replace breakfast with powdered whey protein (slimfast) with fairlife milk - - met 3. Continue to drink water as your main beverage - 64 ounces/day - - met 4. Continue to use the stationary/recumbent cycle as tolerated for 30 minutes/session 5-6 x per week. - - not met ? Pre op goal weight: 288 lbs prior to liquid fast ? CHANGES IN TREATMENT: Patient met goal(s): Partially Actions to implement interventions: Diet History: Breakfast - slimfast and almond milk; or breakfast bowl or furit or scrambled eggs/park Lunch - slimfast and almond milk Or taco soup, turkey with string cheese Snack -string cheese and turkey with fruit Dinner - corn on the boyle with grilled chicken/spices/rib and boccoli Beverages - water main beverage 3 bottles/day Vitamins/Supplements - Centrum adult with iron Exercise - none broke ankle CLINICAL IMPRESSIONS: excellent REVISIONS IN DIAGNOSIS: Diagnosis: has not changed. Allergies: Patient has no known allergies. Medications: Current Outpatient Medications Medication Sig Dispense Refill - atorvastatin (LIPITOR) 80 mg tablet Take 80 mg by mouth once daily. - metoprolol succinate ER (TOPROL XL) 25 mg 24 hr tablet Take 25 mg by mouth once daily. 3 - furosemide (LASIX) 20 mg tablet Take 20 mg by mouth once daily. - aspirin, enteric coated (ASPIRIN LOW DOSE) 81 mg EC tablet Take 81 mg by mouth. - traMADol (ULTRAM) 50 mg tablet 0 - oxybutynin (DITROPAN) 5 mg tablet - amLODIPine (NORVASC) 5 mg tablet - lisinopril (ZESTRIL, PRINIVIL) 40 mg tablet - celecoxib (CELEBREX) 200 mg capsule - pantoprazole DR (PROTONIX) 40 mg tablet No current facility-administered medications for this visit. (currently taking) Anthropometrics: Height: Last 1 Encounter Ht Readings: Date: Ht: 05/19/2019 165 cm (5' 4.96 ) Current weight: Last 1 Encounter Wt Readings: Date: Wt: 05/19/2019 122.5 kg (270 lb) Body mass index is 45.97 kg/m?. Resting Metabolic Rate: 1823 NUTRITION ASSESSMENT: Malnutrition Screening Significant unintentional weight loss? No Eating less than 75% of usual intake for more than 2 weeks? No Potential Signs of Inflammation: no identifiable sources RECOMMENDED MALNUTRITION DIAGNOSIS: NO MALNUTRITION IDENTIFIED Nutritional status: No Malnutrition Identified Educational materials provided: none this visit READINESS TO LEARN Cognitive ability: Alert and oriented Motivation to learn: Eager Family support: High - Very involved in pt care Instruction provided to: Patient Patient learns best by: Individual Instruction Written Instruction - Hand-outs Demonstration Factors affecting learning: None Physical limitations affecting learning: None Likelihood of Adherence: High Patient presents with 29 lbs weight loss since initial assessment in preparation for Sleeve Gastrectomy. Intentional loss. Exercise limited related to broken ankle. Booted for the past ~5 weeks. Fluids free of calories. Fluids free of calories, lower than recommended volume (consumes 48 ounces/day) Patient meets the National Institutes of Health guidelines for weight loss surgery and has [employer] Insurance therefore is required to complete 6 months of Nutrition Intervention for clearance for surgery. Today is session 5 of 6 Nutrition Diagnosis: Overweight Obesity, related to; food/nutrition - related knowledge deficit and physical inactivity, as evidenced by BMI above normative standard for age and gender and infrequent, low-duration and/or low-intensity physical activity. Nutrition Intervention 05/19/2019: Comprehensive Nutrition Education 1. After surgery, okay to take a combination bariatric capsule AND 1200 mg calcium citrate. 2. Okay to continue to use the protein and fruit once daily 3. Use the Healthy Plate Method of portion control - lunch and dinner 4 oz lean meat (fish, chicken, pork tenderloin, turkey, seafood, eggs/cheese 1/2 plate non starchy vegetables (salad, greens, cabbage, spinach, brussels sprouts, broccoli, carrots, celery, peppers, green beans, cauliflower) 1 cup starch/starchy vegetables (corn, peas, morelos beans, winter squash, sweet potato, rice, pasta, Potato) 4. Participate in sitting exercise/therapy as possible. [place] 30 minutes each - every other day. 5. Increase water to 4 bottles/day Pre op goal weight: Surpassed! 280 lbs Nutrition Monitoring AND Evaluation: 1-2 # weight loss per week prior to surgery Criteria: weight check Need for Follow up: schedule June 13 at 2 pm Referred/Supervised by: Neo/Mayra MYERS Billing Type: Re-assess/15 min 2 units SIGNATURE: Vikas Santos RD PATIENT NAME: Pallavi Lujan DATE: May 19, 2019 TIME: 10:06 AM PAGER: [phone] Normal [facility] CNCFRANCKATEDgeena 03-14-2019 CNCNPATED Education (BMIREJ) PALLAVI LUJAN ([id number]) 1965 F Date Time Provider Department 03/14/19 2:00 PM VIKAS SANTOS (RD) BMIREJ Reason for Visit: Reassessment [674] Patient Education [91] Progress Notes: Vikas Santos RD 03/14/2019 5:08 PM Signed [facility] PATIENT EDUCATION NOTE-Established Shared Nutrition Group Reassessment Topic: Life Style Changes: Pre-op weight loss surgery (Sleeve Gastrectomy: Diet and Exercise Pain: Is the patient having any pain that is interfering with oral/enteral intake? No 0 on a scale of 0 to 10 Progress: Nutrition Intervention (date of last encounter 02/17/2019) ? 1. Okay to continue to use the protein shake for breakfast daily. Use 1 cup skim milk or Fairlife Milk instead of the almond milk for additional protein = 10 g protein powder and 13 g Fairflie milk + 23 g protein/shake - - met 2. Eat 5 portions of vegetables and fruit/day (3 portions veggies or more and 2-3 portions fruit/day - - met 3. Decaf coffee is fine (vanilla brewed coffee or Kcup is fine); Water - 3-4 bottles/day. - - met 4. Check out u-tube exercise from a sitting position 20-25 minutes videos - 4-6 x per week. (Marlene Dahl) - - met 5. Use the Healthy Plate Method of portion control For lunch and dinner - - met 4 oz lean meat (fish, chicken, pork tenderloin, turkey, seafood, eggs/cheese 1/2 plate non starchy vegetables (salad, greens, cabbage, spinach, brussels sprouts, broccoli, carrots, celery, peppers, green beans, cauliflower) 1 cup starch/starchy vegetables (corn, peas, morelos beans, winter squash, sweet potato, rice, pasta, Potato) 6. Vitamin D address per Dr. Larose. Start a daily multivitamin with iron - - met ? Goal weight pre-op is?288?lbs. - in process Protein goal is?75?to 94?gm Changes In Treatment: Patient met goal(s): Yes Actions to implement interventions: Diet History: Do you typically skip meals? No How often do you eat deep fried foods (chips, Czech fries, fried meats, etc) Never How often do you eat sweets (cakes, cookies, candy, ice cream, pie) Never Breakfast - Slimfast (powder) with Fairlife milk (1 cup) and fruit Snack - none Lunch - turkey breast/chicken/ground turkey with steamed vegetables and fruit Snack - fruit/vegetables with protein (egg, egg cup, string cheese, peanut butter) Dinner - last night: (3) ground turkey meatballs, tomato sauce and cauliflower rice Snack - none Fluids - water, coffee Activity: Patient's exercise is: moderate, 30 min with frequency of moderate, 6x per week . Diagnosis: has not changed. Allergies: Patient has no known allergies. Medications: Current Outpatient Medications Medication Sig Dispense Refill - atorvastatin (LIPITOR) 80 mg tablet Take 80 mg by mouth once daily. - metoprolol succinate ER (TOPROL XL) 25 mg 24 hr tablet Take 25 mg by mouth once daily. 3 - furosemide (LASIX) 20 mg tablet Take 20 mg by mouth once daily. - aspirin, enteric coated (ASPIRIN LOW DOSE) 81 mg EC tablet Take 81 mg by mouth. - traMADol (ULTRAM) 50 mg tablet 0 - oxybutynin (DITROPAN) 5 mg tablet - amLODIPine (NORVASC) 5 mg tablet - lisinopril (ZESTRIL, PRINIVIL) 40 mg tablet - celecoxib (CELEBREX) 200 mg capsule - pantoprazole DR (PROTONIX) 40 mg tablet No current facility-administered medications for this visit. (currently taking) ; Anthropometrics: Height: Last 1 Encounter Ht Readings: Date: Ht: 03/14/2019 165 cm (5' 4.96 ) Current weight: Last 1 Encounter Wt Readings: Date: Wt: 03/14/2019 132 kg (290 lb 14.4 oz) Body mass index is 48.47 kg/m?. Resting Metabolic Rate: 1922 Malnutrition Screening Significant unintentional weight loss? No Eating less than 75% of usual intake for more than 2 weeks? No RECOMMENDED MALNUTRITION DIAGNOSIS: NO MALNUTRITION IDENTIFIED Nutritional status: No Malnutrition Identified Nutrition Diagnosis Overweight Obesity, related to food/nutrition - related knowledge deficit, as evidenced by BMI above normative standard for age and gender Readiness To Learn Cognitive Ability: Alert and oriented Motivation To Learn: Eager Family Support: High - Very involved in pt care Instruction Provided To: Patient Patient Learns Best By: Individual Instruction Written Instruction - Hand-outs Verbal Instruction Factors Affecting Learning: None Physical Limitations Affecting Learning: None Learning Response: Likely to Adherence High Patient participated in pre op bariatric surgery shared nutrition appointment. Patient participated actively in group. Presents with 9 pound weight loss x 1 month. . 14 pound loss since initial assessment. Intentional weight loss facilitated by consistent exercise/moderate intensity cardio for 180 minutes/week. Reports stationary/recumbent cycle is not providing back pain. Continues to use commercial program for counting points (WW) with good success. Abundant fruit and vegetables/protein includes lean sources. Meal replacement shakes used daily to replace breakfast. Patient meets the National Institutes of Health guidelines for weight loss surgery and has [employer] therefore is required to complete 6 months of Nutrition Intervention for clearance for surgery. Today is session 4 of 6. (Juan 12/19/18, Duy 01/17/19 and RAVI Santos 02/17/19, 03/14/19) Educational materials provided none this visit Nutrition Intervention: Modify type and amount of intake at meals and snacks 1. Continue to eat lean protein/fruit and vegetables for all meals 2. Okay to replace breakfast with powdered whey protein (slimfast) with fairlife milk 3. Continue to drink water as your main beverage - 64 ounces/day 4. Continue to use the stationary/recumbent cycle as tolerated for 30 minutes/session 5-6 x per week. Pre op goal weight: 288 lbs prior to liquid fast Nutrition Monitoring AND Evaluation: 1-2 # weight loss per week prior to surgery Criteria: Weight check Need for Follow up: 1 month Referred/Supervised by: Neo MYERS Billing Type: Ambulatory Group/30 min 2 units SIGNATURE: Vikas Santos RD PATIENT NAME: Pallavi Lujan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 and colonoscopy under anesthesia for further evaluation, informed consent obtained. Follow-up No qualifying data available Problem List/Past Medical History Ongoing Anemia Anxiety Apnea, sleep Asthma BMI 35.0-35.9,adult CAD (coronary artery disease) Cervical stenosis of spine Chronic venous insufficiency Diabetes Eczema GERD (gastroesophageal reflux disease) HTN (hypertension) Hypertension Iron deficiency anemia Low back pain syndrome Morbid obesity Smoker Varicose veins of legs Vitamin D deficiency Historical Arthritis Numbness Procedure/Surgical History Gastric sleeve (2020), Carpal tunnel release, History of elbow surgery, History of tubal ligation, Repair of meniscus. Medications aspirin 81 mg Chew Tab, 81 mg= 1 tab(s), Chewed, Daily Celebrex, 200 mg, Oral, Daily Colace 100 mg Cap, 100 mg= 1 cap(s), Oral, BID, PRN Coreg 12.5 mg Tab, 12.5 mg= 1 tab(s), Oral, BID ferrous sulfate 325 mg oral enteric coated tablet, 325 mg= 1 tab(s), Oral, BID hydrOXYzine hydrochloride 25 mg Tab, 1-2 tabs, Oral, Bedtime Linzess 72 mcg oral capsule, 72 mcg= 1 cap(s), Oral, Daily lisinopril 40 mg Tab, 40 mg= 1 tab(s), Oral, Daily multivitamin, 1 tab(s), Oral, Daily oxybutynin, 5 mg, Oral, Daily pantoprazole, 40 mg, Oral, BID Allergies Latex (lips swell) Social History Alcohol Current, Liquor, 1-2 times per week, 02/14/2023 Substance Abuse - Denies Substance Abuse, 02/19/2018 Tobacco Former smoker, quit more than 30 d (more content not included)... [facility] Comment on above: Result Comment: Elec tronically Signed By: ANNABEL BERRY, David Joyce\Date and Time Signed: 02/15/23 16:26 EDT 02-04-2023 Evaluation note Encounter Date Diagnosis Assessment Notes 16 Apr, 2023 Cellulitis of right hand (ICD-10 - L03.113) Cellulitis: adult home care material was printed Drink plenty fluids, get plenty of rest. Continue home medications as prescribed. Take the cephalexin as prescribed until gone. Take Tylenol or Motrin for aches pains or fevers. Follow-up with your family physician if no improvement in 2 to 3 days [facility] Other 03-31-2023 NoteHypertension is currently well controlled- 124/76 Continue all meds- lisinopril, lasix, coreg prnUnL[facility]03-31-2023 NoteNYHC II Continue GDMT- Lasix 20 mg daily- Diuretic therapy Monitor daily weights, I&O, fluid restriction 1.5-2L/day, renal function and electrolytesUnLima City Hospital03-31-2023 NoteCoronary artery disease is Without any concerning symptoms Continue goal-directed medical therapy including aspirin, Lipitor, carvedilol, lisinopril Continue heart healthy diet, regular exerciseUnLima City Hospital 01-19-2023 NoteUTP CARDIOLOGY PROGRESS NOTE HPI: Pallavi Lujan is a 57 y.o. female here for H/O CAD, Diastolic heart failure, HTN. Chest pain, shortness of breath, orthopnea, palpitations, lightheaded dizziness or syncope. Reports that she has started workout regimen and goes to the gym, Has quit drinking any caffeine/coffee. Denies any activity/exercise limiting symptoms at this time. Reports that she was having episodes of hypertension and her PCP Dr. Sotelo gave her carvedilol 12.5 mg twice daily as needed for elevated blood pressure- States that she is needed the carvedilol only 2 or 3 times since September, She has had an episode where her blood pressure was too low and she had to go to emergency room. Review of Systems Constitutional: Negative. Respiratory: Negative. Cardiovascular: Negative. Neurological: Negative. All other systems reviewed and are negative. Visit Vitals BP 124/76 (BP Location: Right arm, Patient Position: Sitting) Pulse 89 Ht 1.676 m (5' 6 ) Wt 96.7 kg (213 lb 3.2 oz) SpO2 97% BMI 34.41 kg/m??? Smoking Status Former BSA 2.12 m??? Allergies Allergen Reactions Latex Swelling Swelling on lips only (when she blows up balloons). Medications: Current Outpatient Medications on File Prior to Visit Medication Sig Dispense Refill acetaminophen (Tylenol) 500 mg tablet Take 2 tablets by mouth in the morning, afternoon, and at bedtime. aspirin 81 mg chewable tablet CHEW 1 TABLET BY MOUTH EVERY DAY atorvastatin (Lipitor) 80 mg tablet Take 1 tablet (80 mg) by mouth in the morning. 90 tablet 3 carvedilol (Coreg) 12.5 mg tablet Take 12.5 mg by mouth if needed in the morning and at bedtime for high blood pressure. BP > 150/90 celecoxib (CeleBREX) 200 mg capsule Take 1 tablet by mouth in the morning. docusate sodium (Colace) 100 mg capsule TAKE 1 CAPSULE BY MOUTH ONCE TO TWICE DAILY ferrous sulfate 325 (65 Fe) MG tablet Take 1 tablet by mouth in the morning and at bedtime. furosemide (Lasix) 20 mg tablet TAKE 0.5 TABLETS EVERY DAY BY MOUTH FOR 6 DAYS Linzess 72 mcg capsule Take 72 mcg by mouth in the morning. lisinopril 40 mg tablet Take 40 mg by mouth in the morning. oxybutynin (Ditropan) 5 mg tablet Take 1 tablet by mouth in the morning. pantoprazole (ProtoNix) 40 mg EC tablet Take 1 tablet by mouth in the morning and at bedtime. [DISCONTINUED] amLODIPine (Norvasc) 5 mg tablet Take 1 tablet by mouth in the morning. albuterol 90 mcg/actuation inhaler INHALE 2 PUFFS BY MOUTH 4 TIMES A DAY NEEDED amoxicillin-pot clavulanate (Augmentin) 875-125 mg tablet amoxicillin 875 mg-potassium clavulanate 125 mg tablet TAKE 1 TABLET BY MOUTH EVERY 12 HOURS FOR 10 DAYS diazePAM (Valium) 5 mg tablet TAKE 1 TABLET BY MOUTH TWICE A DAY TAKE 60 MINUTES PRIOR TO PROCEDURE tiZANidine (Zanaflex) 4 mg tablet Take 1 tablet by mouth in the morning. No current facility-administered medications on file prior to visit. Physical Exam: Constitutional: Appearance: Normal appearance. Without apparent distress HENT: Head: Normocephalic and atraumatic. Nose: Nose normal. Mouth/Throat: Mouth: Mucous membranes are moist. Eyes: Extraocular Movements: Extraocular movements intact. Conjunctiva/sclera: Conjunctivae normal. Neck: Vascular: No JVD. Cardiovascular: Rate and Rhythm: Normal rate and regular rhythm. Pulses: Dorsalis pedis pulses are 3 on the right side and 3on the left side. Posterior tibial pulses are 3 on the right side and 3 on the left side. Heart sounds: Normal heart sounds, S1 normal and S2 normal. Pulmonary: Effort: Pulmonary effort is normal. Breath sounds: Normal breath sounds. Abdominal: General: Bowel sounds are normal. Palpations: Abdomen is soft. Musculoskeletal: General: Normal range of motion. Cervical back: Normal range of motion. Right lower leg: No edema. Left lower leg: No edema. Skin: General: Skin is warm and dry. Capillary Refill: Capillary refill takes less than 2 seconds. Neurological: General: No focal deficit present. Mental Status: She is alert and oriented to person, place, and time. Psychiatric: Mood and Affect: Mood normal. Behavior: Behavior normal. Thought Content: Thought content normal. Judgment: Judgment normal. Labs: 01/16/22- CBC stable- Noted anemia and low iron levels therefore she has resumed taking iron supplements 2 days ago Normal renal function, normal liver function, cholesterol well controlled Cholesterol 145, HDL 71, triglycerides 158, LDL 42.4 A1c 4.7 Last lab values have been reviewed CV Testin01/06/2019 Echo 09/21/2020 Cath No echocardiogram results found for the past 12 months Assessment/Plan: Coronary arteriosclerosis Coronary artery disease is Without any concerning symptoms Continue goal-directed medical therapy including aspirin, Lipitor, carvedilol, lisinopril Continue heart healthy diet, regular exercise Diastolic heart failure (CMS/HCC) [facility] II (more content not included)...[facility]03-28-2023 Evaluation note* Encounter Date Diagnosis Assessment Notes Treatment Notes Treatment Clinical Notes Dec, Sore throat (ICD-10 - J02.9) Dec, Viral pharyngitis (ICD-10 - J02.9) Advised patient that rapid Strep test was negative today. Advised patient that will treat as viral illness. Supportive care as directed, increase fluids and rest, Tylenol/Motrin as directed, OTC cough/cold remedies as directed on packaging, cool mist humidifier, throat lozenges. Discussed infection control practices such as good hand washing and mask wearing. Patient to follow up with PCP if symptoms persist or worsen despite treatment. Immediate eval for SOB, difficulty breathing, chest pain, fevers that do not break with antipyretic or any other concerning symptoms as reviewed on patient education handout. Patient verbalizes understanding and is agreeable to treatment plan. Patient left in stable condition. [facility] Other 11-14-2022 Evaluation note* Encounter Date Diagnosis Assessment Notes Treatment Notes Treatment Clinical Notes Aug, Contact with and (suspected) exposure to other viral communicable diseases (ICD-10 - Z20.828) Aug, Bronchitis (ICD-10 - J40) Acute bronchitis material was printed Drink plenty fluids, get plenty of rest. Continue home medications as prescribed. Take the azithromycin and the prednisone as prescribed until gone. Use the Flonase inhaler and the albuterol inhaler as prescribed until your symptoms improve. Follow-up with your family physician if no improvement in 2 to 3 days. [facility] Other 11-06-2022 Evaluation note* Encounter Date Diagnosis Assessment Notes Treatment Notes Treatment Clinical Notes Aug, Contact with and (suspected) exposure to covid-19 (ICD-10 - Z20.822) Aug, Viral URI (ICD-10 - J06.9) Advised patient that COVID/Influenza A/B test and rapid Strep test was negative today. Advised patient that will treat as viral URI. Supportive care as directed, increase fluids and rest, Tylenol/Motrin as directed, rx of [place] and Flonase, cool mist humidifier, throat lozenges. Discussed infection control practices such as good hand washing and mask wearing. Patient to follow up with PCP if symptoms persist or worsen despite treatment. Immediate eval for SOB, difficulty, chest pain, fevers that do not break with antipyretic or any other concerning symptoms as reviewed on patient education handout. Patient verbalizes understanding and is agreeable to treatment plan. Patient left in stable condition Aug, Sore throat (ICD-10 - J02.9) [facility] Other 01-11-2022 Evaluation note* Encounter Date Diagnosis Assessment Notes Treatment Notes Treatment Clinical Notes Oct, Cubital tunnel syndrome on right (ICD-10 - G56.21) Instructed on application of Neosporin to incision to help dryness. Sutures removed today under sterile conditions. Patient tolerated well with no adverse reactions. May allow incision to get wet in clean running water, no ny/ramires/strea ms. Instructed to progress actiivity slowly progress as heals. Oct, Right carpal tunnel syndrome (ICD-10 - G56.01) Oct, Other specified postprocedural states (ICD-10 - Z98.890) Oct, Encounter for remova l of sutures (ICD-10 - Z48.02) [facility] Other 12-27-2021 Evaluation note* Encounter Date Diagnosis Assessment Notes Treatment Notes Treatment Clinical Notes Sep, Other specified postprocedural states (ICD-10 - Z98.890) [facility] Other 10-28-2021 Evaluation note* Encounter Date Diagnosis Assessment Notes Treatment Notes Treatment Clinical Notes Jul, Cubital tunnel syndrome on right (ICD-10 - G56.21) Jul, Right carpal tunnel syndrome (ICD-10 - G56.01) We will plan on right carpal tunnel and cubital tunnel release, with possible ulnar nerve anterior transposition.The patient has stated that they do not want to live in this condition any longer and would like to proceed with surgery. I feel that this is a reasonable option at this point and we may be able to improve function and decrease pain and numbness. We have discussed the process and procedure in detail including not eating or drinking 8 hrs prior to surgery, the need for anesthesia and associated respiratory, cardiac, and patient position complications (such as nerve traction and compression). We discussed that incisional pain and continued neurologic symptoms can persist for months after surgery. The complications of infection, persistent symptoms, sensory and motor nerve injury are well known problems that can require repeat surgeries. Patient is fully aware that this wrist may never be the same. We discussed that our team will do everything we can to help achieve the best outcome. Jul, Pre-op exam (ICD-10 - Z01.818) [facility] Other Evaluation + Plan note No data available for this section [facility] Evaluation noteNo InformationNort [employer] Other Histwrp general Narrative - Reported* Type Description Date Medical History Hypertension Medical History hypercholesterolemia Medical History urinary frequency Medical History acid reflux Medical History Arthritis Medical History pre diabetic Surgical History knee surgery 2010 Surgical History tubal ligation Surgical History ankle surgery Hospitalization History see above surgical [employer] Other Hisghxf general Narrative - Reported* Type Description Date Medical History Hypertension Medical History hypercholesterolemia Medical History urinary frequency Medical History acid reflux Medical History Arthritis Medical History pre diabetic Surgical History knee surgery 2010 Surgical History tubal ligation Surgical History ankle surgery Surgical History gastric bypass Hospitalization History see above surgical fluid Operations Other [facility]rz[facility] general Narrative - Reported* Type Description Date Medical History Hypertension Medical History hypercholesterolemia Medical History urinary frequency Medical History acid reflux Medical History Arthritis Medical History pre diabetic Surgical History knee surgery 2010 Surgical History tubal ligation Surgical History ankle surgery Surgical History gastric bypass Surgical History right elbow Surgical History carpal tunnel Hospitalization History see above surgical fluid Operations Other Hospital Discharge instructions No data available for this section [facility] Progress note No data available for this section [facility] [place] Summary Purpose Family History No Family History Records FoundNo Family History Records FoundNo Family History Records FoundNo Family History Records FoundNo Family History Records FoundNo Family History Records FoundNo Family History Records Found Advance Directives No Advanced Directives Records FoundNo Advanced Directives Records FoundNo Advanced Directives Records FoundNo Advanced Directives Records FoundNo Advanced Directives Records FoundNo Advanced Directives Records FoundNo Advanced Directives Records Found Additional Source Comments INFORMATION SOURCE (unrecogn ized section and content) DATE CREATED AUTHOR 12/20/2018 [facility] DATE CREATED AUTHOR AUTHOR'S ORGANIZ ATION 02/04/2020 [facility] DATE CREATED AUTHOR AUTHOR'S ORGANIZ ATION 08/27/2021 [facility] DATE CREATED AUTHOR AUTHOR'S ORGANIZ ATION 08/29/2021 [facility] DATE CREATED AUTHOR AUTHOR'S ORGANIZ ATION 01/24/2023 [facility] DATE CREATED AUTHOR AUTHOR'S ORGANIZ ATION 03/07/2023 [facility] DATE CREATED AUTHOR AUTHOR'S ORGANIZ ATION 04/26/2023 [facility] <item> Privacy Markings (unrecogniz ed section and content) Section Author: Eboni Hernandez PROHIBITION ON REDISCLOSURE OF CONFIDENTIAL INFORMATION This notice accompanies a disclosure of information concerning a client made to you with the consent of such client. REASON FOR VISIT (unrecogniz ed section and content) Bilateral Carpal TunnelNo In formationpost op scriptsRecheck Right WristSORE THROAT H/ACOUGH, SORE THROATSORE THROATPAINFUL RIGHT KNUCKLE Patient Care team informatio n (unrecognized section and content) Personnel Name: Winston Sotelo MD Address: Address: [address] [place] [address] Personnel Name: Winston Sotelo MD Address: Address: [address] [place] [address] FOR RECORDS PERTAINING TO PATIENTS WHO ARE OR HAVE BEEN ENROLLED IN A CHEMICAL DEPENDENCY/SUBSTANCEABUSE PROGRAM, SOME INFORMATION MAY BE OMITTED. This clinical summary was aggregated from multiple sources. Caution should be exercised in using it in the provision of clinical care. This summary normalizes information from multiple sources, and as a consequence, information in this document may materially change the coding, format and clinical context of patient data. In addition, data may be omitted in some cases. CLINICAL DECISIONS SHOULD BE BASED ON THE PRIMARY CLINICAL RECORDS. [employer] provides no warranty or guarantee of the accuracy or completeness of information in this document.
[2023-12-18 08:38] LABS: Basophils Percent Auto 0.6 % (0.2-2.0); Eosinophils Absolute Auto 0.1 10^3/uL (0.0-0.7); Eosinophils Percent Auto 2.5 % (0.9-7.0); Hemoglobin 11.1 g/dL (12.0-16.0); Immature Granulocytes Abs Auto 0.01 10^3/uL (0.00-0.03); Immature Granulocytes Pct Auto 0.3 % (0.0-0.5); Lymphocytes Percent Auto 32.2 % (20.5-60.0); Mean Corpuscular HGB Conc 31.7 g/dL (29.9-35.2); Mean Corpuscular Hemoglobin 32.3 pg (26.7-34.0); Mean Corpuscular Volume 101.7 fL (81.0-99.0); Mean Platelet Volume 9.3 fL (9.5-13.5); Monocytes Absolute Auto 0.5 10^3/uL (0.3-0.8); Monocytes Percent Auto 16.2 % (1.7-12.0); Neutrophils Absolute Auto 1.5 10^3/uL (1.4-6.5); Neutrophils Percent Auto 48.2 % (43.0-75.0); Platelet Count 185 10^3/uL (150-450); Red Blood Count 3.44 10^6/uL (4.20-5.40); Red Cell Distribution Width 12.6 % (11.0-15.0); White Blood Count 3.1 10^3/uL (4.0-11.0)
== END 2023-12-18 08:29 | disposition home or self-care (01) ==
LOC: LAB 08:29
PROVIDERS: PCP Family Medicine; Visit Provider Family Medicine
DX: R79.89 Other specified abnormal findings of blood chemistry (principal); R79.9 Abnormal finding of blood chemistry, unspecified
CPT/HCPCS: 36415; 85025

== ENCOUNTER 2024-01-01 15:01 | Outpatient (OUT) | payer SELFPAY ==
[2024-01-01 15:38] LABS: Influenza Virus A Antigen Negative; Influenza Virus B Antigen Negative; Internal Control Within Normal Limits; SARS-CoV-2 Ag NEGATIVE (NEGATIVE)
[2024-01-02 15:58] LABS: SARS-CoV-2 NAA NOT DETECTED (NOT DETECTE)
== END 2024-01-01 15:02 | disposition home or self-care (01) ==
PROVIDERS: PCP Family Medicine; Visit Provider Family Medicine
DX: J21.9 Acute bronchiolitis, unspecified (principal)
CPT/HCPCS: 87635; 87804; 87811

== ENCOUNTER 2024-02-05 13:00 | Outpatient (OUT) | payer SELFPAY ==
[2024-02-05 13:09] LABS: Basophils Absolute Auto 0.1 10^3/uL (0.0-0.1); Eosinophils Absolute Auto 0.1 10^3/uL (0.0-0.7); Eosinophils Percent Auto 1.2 % (0.9-7.0); Hematocrit 33.9 % (36.0-48.0); Hemoglobin 11.1 g/dL (12.0-16.0); Immature Granulocytes Abs Auto 0.02 10^3/uL (0.00-0.03); Immature Granulocytes Pct Auto 0.4 % (0.0-0.5); Lymphocytes Absolute Auto 1.2 10^3/uL (1.2-3.8); Lymphocytes Percent Auto 23.7 % (20.5-60.0); Mean Corpuscular HGB Conc 32.7 g/dL (29.9-35.2); Mean Corpuscular Hemoglobin 32.6 pg (26.7-34.0); Mean Corpuscular Volume 99.7 fL (81.0-99.0); Mean Platelet Volume 8.7 fL (9.5-13.5); Monocytes Absolute Auto 0.5 10^3/uL (0.3-0.8); Monocytes Percent Auto 9.2 % (1.7-12.0); Neutrophils Absolute Auto 3.4 10^3/uL (1.4-6.5); Neutrophils Percent Auto 64.5 % (43.0-75.0); Platelet Count 221 10^3/uL (150-450); Red Cell Distribution Width 12.9 % (11.0-15.0); White Blood Count 5.2 10^3/uL (4.0-11.0)
== END 2024-02-05 13:01 | disposition home or self-care (01) ==
PROVIDERS: PCP Family Medicine; Visit Provider Family Medicine
DX: R79.89 Other specified abnormal findings of blood chemistry (principal)
CPT/HCPCS: 36415; 85025

== ENCOUNTER 2024-10-16 08:34 | Outpatient (OUT) | payer OTHER, SELFPAY ==
--- OUTSIDE RECORDS SUMMARY | 2024-10-14 11:42 | XMS_ITS | CCD ---
Author Organization [facility] Care Team Providers Care Forgesmith Name Role Phone ISAAC LAROSE Referring Unavailable Unknown, Pcp Unavailable Unavailable Jacqueline Robles Unavailable NnamdiTai martell Unavailable Tay Yolie Unavailable Kaitlin Garibay Unavailable Winston Crane Primary Care Physician [phone] D[address] ., DR MONTERO Admitting Unavailable HOY ., DR MONTERO Attending Unavailable HOY ., DR MONTERO Consulting Unavailable HOY ., DR MONTERO Primary Care Unavailable HOY ., DR MONTERO Primary Care Unavailable ELTAHAWY, DR PANDEY Admitting Unavailable ELTAHAWY, DR PANDEY Attending Unavailable ELTAHAWY, DR PANDEY Consulting Unavailable ELTAHAWY, DR PANDEY Consulting Unavailable HOY ., DR MONTERO Primary Care Unavailable ELTAHAWY, DR PANDEY Admitting Unavailable ELTAHAWY, DR PANDEY Attending Unavailable HOY ., DR MONTERO Primary Care Unavailable NILL ., DR ANDERSON Admitting Unavailable NILL ., DR ANDERSON Attending Unavailable NILLDavid Attending Unavailable NILL, David Murphy Attending Unavailable NILL, David Murphy Attending Unavailable ETHELLAUREEN Attending Unavailable ELTAHAWY, PATRICE Attending Unavailable Allergies Allergy Classification Reported Allergen(s) Allergy Type Date of Onset Reaction(s) Facility (1 source) Cat Angioedema [facility] (1 source) DrugAllergiesUnable to Obtain [facility] Comment on above: Pharmacy/MD office jackelyn de souza (5 sources) Latex; Translations: [latex] Drug allergy 3 lips [facility] Medications Current Medications Medication Drug Class(es) Dates Sig (Normalized) Sig (Original) Acetaminophen (8 sources) Tylenol Active [id number] 200 actuat albuterol 0.09 mg/actuat metered dose [...] 1.5 mg/ml oral solution (2 sources) Uncompetitive P-sbteyr-T-asparta te Receptor Antagonist, Sigma-1 Agonist Start: 08-27-2022 take 10 mL by mouth every eight hours Lyons DM 7.5-7.5 MG/5ML 10 mL Orally every [...] or chronic Episodic Congestive heart failure; nonhypertensive (8 sources) Chronic diastolic (congestive) heart failure; Translations: [Acute on chronic diastolic (congestive) heart failure] Onset: 07-04-2022 Chronic Coronary atherosclerosis and other heart disease (4 sources) Coronary arteriosclerosis; Translations: [Atherosclerotic heart disease of [place] coronary artery without angina pectoris] Onset: 07-04-2022 02-09-2023 Chronic Deficiency and other anemia (2 sources) [...] (primary) hypertension; Translations: [Hypertensive disorder] Onset: 12-19-2018 02-12-2018 Chronic Immunizations and screening for infectious disease [...] Test Name Value Interpretation Reference Range Facility Office Visiton 01-16-2024 Follow-up visit [id number] Jackelyn Lujan 1965 F Date Provider Department Center 01/16/2024 271-DON, EH CARD [facility] No family history on file Level of Service:63359 AR OFFICE/OUTPATIENT ESTABLISHED MOD MDM 30 MIN Normal [facility] Ambulatory Visit Summaryon 0 04-25-2023 Ambulatory Visit Summary PALLAVI LUJAN :1965 Visit Date:04/25/2023 Ambulatory Visit Instructions Your Diagnosis Iron deficiency anemia Your Care Team Attending Physician - ANNABEL BERRY, David Murphy Primary Care Physician - Deepak BERRY, Winston This Is Your Medications List Contact prescribing [...] longer receiving treatment for. Arthritis Numbness Normal [facility] General Surgery Office/Clini c Noteon 04-25-2023 General [...] Recorded SARS-CoV-2 (COVID-19) mRNA-1273 vaccine 04/19/2021 Recorded [facility] Comment on above: Result Comment: Elec tronically Signed By: ANNABEL BERRY, David Murphy\.br\Date and Time Signed: 04/25/23 16:13 EDT Pathology Noteon 04-16-2023 Pathology Note [id number]#1.00CD:127 [facility] Outside Colonoscopyon 2022 Outside Colonoscopy [id number]#[id number]:127 [facility] Reminderson 04-12-2023 Reminders - From: Myra Escobedo LPN To: N - Clinical; Sent: 04/12/2023 13:58:02 EDT Show up: 03/11/2033 07:00:00 EDT Subject: colonoscopy recall Due Date/Time: 04/11/2033 07:00:00 EDT Reminder/Recall Patient due for screening colonoscopy 04/11/2033. [facility] Pre-Certification Formon Pre-Certification Form [id number]#[id number]:127 [facility] Consent for Procedure/Surger yon 02-16-2023 Consent for Procedure/Surgery [id number]#1.00CD:127 [facility] Facesheeton 02-15-2023 Facesheet [id number]#1.00CD:127 [facility] Ambulatory Visit Summaryon 0 02-14-2023 Ambulatory Visit Summary PALLAVI LUJAN :1965 Visit Date:02/14/2023 Ambulatory Visit Instructions Your Care Team Attending Physician - ANNABEL BERRY, David Murphy Primary Care Physician - Hoy MD, Winston This Is Your Medications List aspirin (aspirin [...] longer receiving treatment for. Arthritis Numbness Normal [facility] Physician Referralon 023 Physician Referral [id number]#[id number]:127 Normal [facility] Office Visiton 01-19-2023 Follow-up visit [id number] Jackelyn Lujan 1965 F Date Provider Department Center 01/19/2023 120-LAUREEN DAVENPORT BH CARD [facility] No family history on file Level of Service:94258 AR OFFICE/OUTPATIENT ESTABLISHED MOD MDM 30-39 MIN Reason for Visit and Comments: Follow-up [076654] - Yearly Palpitations [628413] - Went away w/ stopping coffee Normal [facility] INSULINon 01-17-2023 Insulin 7.1 uIU/mL Normal 2.6-24.9 [facility] Comment on above: Performed By: #### I NSULIN #### [facility] [address] [place] [address] Dr. Demetri Leahy CBC AUTO DIFFon 01-16-2023 BASO # 0.0 103/ul Normal 0.0-0.1 [facility] Comment on above: Performed By: #### C BC #### [facility] [address] [place] [address] Dr. Demetri Leahy Basophils/100 WBC (Bld) 0.7 % Normal 0.2-2.0 [facility] Comment on above: Performed By: #### C BC #### [facility] [address] [place] [address] Dr. Demetri Leahy EO # 0.1 103/ul Normal 0.0-0.7 [facility] Comment on above: Performed By: #### C BC #### [facility] [address] [place] [address] Dr. Demetri Leahy Eosinophils/100 WBC (Bld) 2.4 % Normal 0.9-7.0 [facility] Comment on above: Performed By: #### C BC #### [facility] [address] [place] [address] Dr. Demetri Leahy Erythrocyte distribution width (RBC) [Ratio] 12.9 % Normal 11.0-15.0 [facility] Comment on above: Performed By: #### C BC #### [facility] [address] [place] [address] Dr. Demetri Leahy Hematocrit (Bld) [Volume fraction] 32.3 % Critically low 36.0-48.0 [facility] Comment on above: Performed By: #### C BC #### [facility] [address] [place] [address] Dr. Demetri Leahy Hemoglobin (Bld) [Mass/Vol] 10.5 g/dL Critically low 12.0-16.0 [facility] Comment on above: Performed By: #### C BC #### [facility] [address] [place] [address] Dr. Demetri Leahy IG # 0.01 10e3/ul Normal 0.00-0.03 [facility] Comment on above: Performed By: #### C BC #### [facility] [address] [place] [address] Dr. Demetri Leahy IG % 0.2 % Normal 0.0-0.5 [facility] Comment on above: Performed By: #### C BC #### [facility] [address] [place] [address] Dr. Demetri Leahy LYMPH # 1.3 103/ul Normal 1.2-3.8 [facility] Comment on above: Performed By: #### C BC #### [facility] [address] [place] [address] Dr. Demetri Leahy Lymphocytes/100 WBC (Bld) 21.9 % Normal 20.5-60.0 [facility] Comment on above: Performed By: #### C BC #### [facility] [address] [place] [address] Dr. Demetri Leahy MANUAL DIFF REQ NO Normal [facility] Comment on above: Performed By: #### C BC #### [facility] [address] [place] [address] Dr. Demetri Leahy MCH (RBC) [Entitic mass] 31.4 pg Normal 26.7-34.0 [facility] Comment on above: Performed By: #### C BC #### [facility] [address] [place] [address] Dr. Demetri Leahy MCHC (RBC) [Mass/Vol] 32.5 g/dL Normal 29.9-35.2 [facility] Comment on above: Performed By: #### C BC #### [facility] [address] [address] [address] Demetri Leahy MCV (RBC) [Entitic vol] 96.7 fL Normal 81.0-99.0 [facility] Comment on above: Performed By: #### C BC #### [facility] [address] [address] [address] Demetri Leahy MONO # 0.6 103/ul Normal 0.3-0.8 [facility] Comment on above: Performed By: #### C BC #### [facility] [address] [place] [address] Dr. Demetri Leahy Monocytes/100 WBC (Bld) 9.9 % Normal 1.7-12.0 [facility] Comment on above: Performed By: #### C BC #### [facility] [address] [place] [address] Dr. Demetri Leahy NEUT # 3.9 103/ul Normal 1.4-6.5 [facility] Comment on above: Performed By: #### C BC #### [facility] [address] [place] [address] Dr. Demetri Leahy Neutrophils/100 WBC (Bld) 64.9 % Normal 43.0-75.0 [facility] Comment on above: Performed By: #### C BC #### [facility] [address] [place] [address] Dr. Demetri Leahy Platelet mean volume (Bld) [Entitic vol] 9.0 fL Critically low 9.5-13.5 [facility] Comment on above: Performed By: #### C BC #### [facility] [address] [place] [address] Dr. Demetri Leahy PLT 210 103/ul Normal 150-450 [facility] Comment on above: Performed By: #### C BC #### [facility] [address] [address] [address] Demetri Leahy RBC 3.34 106/ul Critically low 4.20-5.40 [facility] Comment on above: Performed By: #### C BC #### [facility] [address] [place] [address] Dr. Demetri Leahy WBC 5.9 103/ul Normal 4.0-11.0 [facility] Comment on above: Performed By: #### C BC #### [facility] [address] [place] [address] Dr. Demetri Leahy FREE THYROXINE INDEX T7on FTI 2.05 Normal 1.30-4.50 [facility] Comment on above: Performed By: #### T 7, TSH, LIPID, CMP #### [facility] [address] [place] [address] Dr. Demetri Leahy T3U 36.0 % Normal 30.0-39.0 [facility] Comment on above: Performed By: #### T 7, TSH, LIPID, CMP #### [facility] [address] [place] [address] Dr. Demetri Leahy T4 [Mass/Vol] 5.70 ug/dL Normal 4.80-13.90 [facility] Comment on above: Performed By: #### T 7, TSH, LIPID, CMP #### [facility] [address] [place] [address] Dr. Demetri Leahy GLYCOHEMOGLOBIN A1Con 2022 ADA RECOMMENDATION SEE BELOW Normal [facility] Comment on above: Result Comment: ADA RECOMMENDED LIMIT 4.0 - 6.0 ADA THERAPEUTIC TARGET < 7.0 ACTION SUGGESTED > 7.0 Performed By: #### A 1C #### [facility] [address] [place] [address] Dr. Demetri Leahy Glucose [Mass/Vol] 88 mg/dL Normal [facility] Comment on above: Performed By: #### A 1C #### [facility] [address] [place] [address] Dr. Demetri Leahy HbA1c (Bld) [Mass fraction] 4.7 % Normal 4.5-6.2 [facility] Comment on above: Performed By: #### A 1C #### [facility] [address] [address] [address] Demetri Leahy IRONon 01-16-2023 Iron [Mass/Vol] 41.0 ug/dL Critically low 50.0-170.0 [facility] Comment on above: Performed By: #### I BRYAN #### [facility] [address] [address] [address] Demetri Leahy LIPID PROFILEon 01-16-2023 CHOL-HDL RATIO NORM SEE BELOW Normal [facility] Comment on above: Result Comment: 3.3 - 4.4 LOW RISK 4.4 - 7.1 AVERAGE RISK 7.1 - 11.0 MODERATE RISK >11.0 HIGH RISK Performed By: #### T 7, TSH, LIPID, CMP #### [facility] [address] [address] [address] Demetri Leahy Cholesterol [Mass/Vol] 145 mg/dL Normal <=200 [facility] Comment on above: Performed By: #### T 7, TSH, LIPID, CMP #### [facility] [address] [address] [address] Demetri Leahy Cholesterol in HDL [Mass/Vol] 71 mg/dL Critically high 40-60 [facility] Comment on above: Performed By: #### T 7, TSH, LIPID, CMP #### [facility] [address] [address] [address] Demetri Leahy Cholesterol in LDL [Mass/Vol] 42.4 mg/dL Normal [facility] Comment on above: Performed By: #### T 7, TSH, LIPID, CMP #### [facility] [address] [address] [address] Demetri Leahy Cholesterol.total /Cholesterol in HDL [Mass ratio] 2.0 {ratio} Normal [facility] Comment on above: Performed By: #### T 7, TSH, LIPID, CMP #### [facility] [address] [place] [address] Dr. Demetri Leahy HDL NORMAL > or = 60 mg/dl - LO W CARDIOVASCULAR RISK <40 mg/dl - HIGH CARDIOVASCULAR RISK Normal [facility] Comment on above: Performed By: #### T 7, TSH, LIPID, CMP #### [facility] [address] [address] [address] Demetri Leahy LDL CALC NORMAL SEE BELOW Normal [facility] Comment on above: Result Comment: <100 mg/dl OPTIMAL 100 - 129 mg/dl NEAR OR ABOVE OPTIMAL 130 - 159 mg/dl BORDERLINE HIGH 160 - 189 mg/dl HIGH >190 mg/dl VERY HIGH Performed By: #### T 7, TSH, LIPID, CMP #### [facility] [address] [address] [address] Demetri Leahy Triglyceride [Mass/Vol] 158 mg/dL Critically high <=150 [facility] Comment on above: Performed By: #### T 7, TSH, LIPID, CMP #### [facility] [address] [address] [address] Demetri Leahy VLDL CALC 31.6 mg/dL Normal [facility] Comment on above: Performed By: #### T 7, TSH, LIPID, CMP #### [facility] [address] [address] [address] Demetri Leahy OCC BLD IMMUNO SCREENon 12-21 OCCULT BLOOD Negative Normal NEGATIVE [facility] Comment on above: Performed By: #### T 7, TSH, LIPID, CMP #### [facility] [address] [address] [address] Demetri Leahy PROF 14(COMP METB)on 023 Albumin [Mass/Vol] 3.8 g/dL Normal 3.4-5.0 [facility] Comment on above: Performed By: #### T 7, TSH, LIPID, CMP #### [facility] [address] [address] [address] Demetri Leahy Albumin/Globulin [Mass ratio] 1.2 {ratio} Normal [facility] Comment on above: Performed By: #### T 7, TSH, LIPID, CMP #### [facility] [address] [address] [address] Demetri Leahy ALP [Catalytic activity/Vol] 50 U/L Normal 46-116 [facility] Comment on above: Performed By: #### T 7, TSH, LIPID, CMP #### [facility] [address] [address] [address] Demetri Leahy ALT [Catalytic activity/Vol] 53 U/L Normal 14-59 [facility] Comment on above: Performed By: #### T 7, TSH, LIPID, CMP #### [facility] [address] [place] [address] Dr. Demetri Leahy Anion gap [Moles/Vol] 14.1 mmol/L Normal [facility] Comment on above: Performed By: #### T 7, TSH, LIPID, CMP #### [facility] [address] [place] [address] Dr. Demetri Leahy AST [Catalytic activity/Vol] 36 U/L Normal 15-37 [facility] Comment on above: Performed By: #### T 7, TSH, LIPID, CMP #### [facility] [address] [place] [address] Dr. Demetri Leahy Bilirubin [Mass/Vol] 0.4 mg/dL Normal 0.2-1.0 [facility] Comment on above: Performed By: #### T 7, TSH, LIPID, CMP #### [facility] [address] [place] [address] Dr. Demetri Leahy Calcium [Mass/Vol] 9.0 mg/dL Normal 8.5-10.1 [facility] Comment on above: Performed By: #### T 7, TSH, LIPID, CMP #### [facility] [address] [place] [address] Dr. Demetri Leahy Chloride [Moles/Vol] 109 mmol/L Critically high 98-107 [facility] Comment on above: Performed By: #### T 7, TSH, LIPID, CMP #### [facility] [address] [place] [address] Dr. Demetri Leahy CO2 [Moles/Vol] 28.0 mmol/L Normal 21.0-32.0 [facility] Comment on above: Performed By: #### T 7, TSH, LIPID, CMP #### [facility] [address] [place] [address] Dr. Demetri Leahy Creatinine [Mass/Vol] 0.79 mg/dL Normal 0.55-1.02 [facility] Comment on above: Performed By: #### T 7, TSH, LIPID, CMP #### [facility] [address] [address] [address] Demetri Leahy EGFR-AF TUVALUAN >60 Normal >=60 [facility] Comment on above: Performed By: #### T 7, TSH, LIPID, CMP #### [facility] [address] [address] [address] Demetri Leahy EGFR-NON AF TUVALUAN >60 Normal >=60 [facility] Comment on above: Performed By: #### T 7, TSH, LIPID, CMP #### [facility] [address] [place] [address] Dr. Demetri Leahy Globulin (S) [Mass/Vol] 3.3 g/dL Normal [facility] Comment on above: Performed By: #### T 7, TSH, LIPID, CMP #### [facility] [address] [place] [address] Dr. Demetri Leahy Glucose [Mass/Vol] 86 mg/dL Normal 74-106 [facility] Comment on above: Performed By: #### T 7, TSH, LIPID, CMP #### [facility] [address] [place] [address] Dr. Demetri Leahy Potassium [Moles/Vol] 4.1 mmol/L Normal 3.5-5.1 [facility] Comment on above: Performed By: #### T 7, TSH, LIPID, CMP #### [facility] [address] [place] [address] Dr. Demetri Leahy Protein [Mass/Vol] 7.1 g/dL Normal 6.4-8.2 [facility] Comment on above: Performed By: #### T 7, TSH, LIPID, CMP #### [facility] [address] [place] [address] Dr. Demetri Leahy Sodium [Moles/Vol] 147 mmol/L Critically high 136-145 [facility] Comment on above: Performed By: #### T 7, TSH, LIPID, CMP #### [facility] [address] [address] [address] Demetri Leahy Urea nitrogen [Mass/Vol] 30.0 mg/dL Critically high 7.0-18.0 [facility] Comment on above: Performed By: #### T 7, TSH, LIPID, CMP #### [facility] [address] [address] [address] Demetri Leahy Urea nitrogen/Creatini ne [Mass ratio] 38.0 mg/mg Normal [facility] Comment on above: Performed By: #### T 7, TSH, LIPID, CMP #### [facility] [address] [address] [address] Demetri Leahy Quick Strepon 01-16-2023 S. pyogenes Org specific cx Ql (Throat) Negative [employer] Other Patient Communicator Strep [employer] Other TSHon 01-16-2023 TSH 1.389 uIU/mL Normal 0.358-3.740 [facility] Comment on above: Performed By: #### T 7, TSH, LIPID, CMP #### [facility] [address] [address] [address] Demetri Leahy COVID/FLU RT-PCRon 2 SARS-CoV-2 (COVID-19) RNA KARTHIK+probe Ql (Unsp spec) Negative [employer] Other COVID/FLU RT-PCR Negative [employer] Other Quick Strepon 09-04-2022 S. pyogenes Org specific cx Ql (Throat) Negative [employer] Other Quick Strep [employer] Other COVID/FLU RT-PCRon 2 SARS-CoV-2 (COVID-19) RNA KARTHIK+probe Ql (Unsp spec) Negative [employer] Other COVID/FLU RT-PCR Negative [employer] Other Quick Strepon 08-27-2022 S. pyogenes Org specific cx Ql (Throat) Negative [employer] [facility] [employer] Other Quick Strep [employer] [facility] [employer] Other PROF CHEM 8 (BAS METB)on Anion gap [Moles/Vol] 13.6 mmol/L Normal [facility] Comment on above: Performed By: #### B MP #### [facility] [address] [address] [address] Demetri Leahy Calcium [Mass/Vol] 9.0 mg/dL Normal 8.5-10.1 [facility] Comment on above: Performed By: #### B MP #### [facility] [address] [place] [address] Dr. Demetri Leahy Chloride [Moles/Vol] 105 mmol/L Normal 98-107 [facility] Comment on above: Performed By: #### B MP #### [facility] [address] [address] [address] Demetri Leahy CO2 [Moles/Vol] 26.9 mmol/L Normal 21.0-32.0 [facility] Comment on above: Performed By: #### B MP #### [facility] [address] [address] [address] Demetri Leahy Creatinine [Mass/Vol] 1.04 mg/dL Critically high 0.55-1.02 [facility] Comment on above: Performed By: #### B MP #### [facility] [address] [address] [address] Demetri Leahy EGFR-AF TUVALUAN >60 Normal >=60 [facility] Comment on above: Performed By: #### B MP #### [facility] [address] [address] [address] Demetri Leahy EGFR-NON AF TUVALUAN 54 mL/min/1.73m2 Critically low >=60 The [facility] Comment on above: Performed By: #### B MP #### [facility] [address] [place] [address] Dr. Demetri Leahy Glucose [Mass/Vol] 99 mg/dL Normal 74-106 [facility] Comment on above: Performed By: #### B MP #### [facility] [address] [address] [address] Demetri Leahy Potassium [Moles/Vol] 4.5 mmol/L Normal 3.5-5.1 [facility] Comment on above: Performed By: #### B MP #### [facility] [address] [address] [address] Demetri Leahy Sodium [Moles/Vol] 141 mmol/L Normal 136-145 The [facility] Comment on above: Performed By: #### B MP #### [facility] [address] [address] [address] Demetri Leahy Urea nitrogen [Mass/Vol] 44.0 mg/dL Critically high 7.0-18.0 [facility] Comment on above: Performed By: #### B MP #### [facility] [address] [address] [address] Demetri Leahy Urea nitrogen/Creatini ne [Mass ratio] 42.3 mg/mg Normal [facility] Comment on above: Performed By: #### B MP #### [facility] [address] [address] [address] Demetri Leahy PROF CHEM 8 (BAS METB)on Anion gap [Moles/Vol] 10.3 mmol/L Normal [facility] Comment on above: Performed By: #### B MP #### [facility] [address] [address] [address] Demetri Leahy Calcium [Mass/Vol] 8.6 mg/dL Normal 8.5-10.1 The [facility] Comment on above: Performed By: #### B MP #### [facility] [address] [address] [address] Demetri Leahy Chloride [Moles/Vol] 107 mmol/L Normal 98-107 The [facility] Comment on above: Performed By: #### B MP #### [facility] [address] [address] [address] Demetri Leahy CO2 [Moles/Vol] 29.0 mmol/L Normal 21.0-32.0 [facility] Comment on above: Performed By: #### B MP #### [facility] [address] [address] [address] Demetri Leahy Creatinine [Mass/Vol] 1.42 mg/dL Critically high 0.55-1.02 [facility] Comment on above: Performed By: #### B MP #### [facility] [address] [address] [address] Demetri Leahy EGFR-AF TUVALUAN 46 mL/min/1.73m2 Critically low >=60 [facility] Comment on above: Performed By: #### B MP #### [facility] [address] [address] [address] Demetri Leahy EGFR-NON AF TUVALUAN 38 mL/min/1.73m2 Critically low >=60 [facility] Comment on above: Performed By: #### B MP #### [facility] [address] [address] [address] Demetri Leahy Glucose [Mass/Vol] 91 mg/dL Normal 74-106 [facility] Comment on above: Performed By: #### B MP #### [facility] [address] [address] [address] Demetri Leahy Potassium [Moles/Vol] 5.3 mmol/L Critically high 3.5-5.1 [facility] Comment on above: Performed By: #### B MP #### [facility] [address] [address] [address] Demetri Leahy Sodium [Moles/Vol] 141 mmol/L Normal 136-145 The [facility] Comment on above: Performed By: #### B MP #### [facility] [address] [address] [address] Demetri Leahy Urea nitrogen [Mass/Vol] 48.0 mg/dL Critically high 7.0-18.0 [facility] Comment on above: Performed By: #### B MP #### [facility] [address] [address] [address] Demetri Leahy Urea nitrogen/Creatini ne [Mass ratio] 33.8 mg/mg Normal [facility] Comment on above: Performed By: #### B #### [facility] [address] [address] [address] Demetri Leahy ELBOW COMPLETE MIN. 3 VIE WSon 07-10-2021 BN ELBOW COMPLETE MIN. 3 VIEWS Patient Name: PALLAVI LUJAN STUDY: ELBOW COMPLETE MIN 3 VIEWS Left INDICATION: L elbow trauma. COMPARISON: None ACCESSION NUMBER(S): [id number] ORDERING CLINICIAN: JACQUELINE ROBLES FINDINGS: Heterotopic ossification adjacent to the medial epicondyle of the distal humerus suggesting either chronic epicondylitis or remote injury. No acute fracture dislocation. IMPRESSION: Heterotopic ossification adjacent to the medial epicondyle of the distal humerus suggesting either chronic epicondylitis or remote injury. Electronically signed by: DOLORES PRICE MD Normal [facility] BN KNEE; COMPLT, 4 OR MORE V IEWSon 07-10-2021 BN KNEE; COMPLT, 4 OR MORE VIEWS Patient Name: PALLAVI LUJAN STUDY: KNEE; COMPLT, 4 OR MORE VIEWS INDICATION: knee injury after fall. COMPARISON: None ACCESSION NUMBER(S): [id number] ORDERING CLINICIAN: ADELSO LUTHER FINDINGS: Mild osteoarthritis right knee with small posterior loose body. Remote posttraumatic changes from prior MCL injury with heterotopic ossification. No acute fracture or osseous abnormality otherwise. IMPRESSION: Mild osteoarthritis right knee with small posterior loose body. Remote posttraumatic changes from prior MCL injury with heterotopic ossification. Electronically signed by: DOLORES PRICE MD Normal [facility] NR CT C-SPINE WO CONTRASTon 07-10-[address] C-SPINE WO CONTRAST Patient Name: PALLAVI LUJAN STUDY: CT HEAD WO CONTRAST; CT C-SPINE WO CONTRAST; 07/10/2021 6:48 pm INDICATION: intox, head trauma, Lie Flat: Yes; fall at [employer] game, neck pain, Lie Flat: Yes COMPARISON: None. ACCESSION NUMBER(S): [id number]; [id number] ORDERING CLINICIAN: JACQUELINE ROBLES; ADELSO LUTHER TECHNIQUE: [...] as stated. This study was interpreted at [place], [place]. Electronically signed by: DO Omari REED [facility] NR CT HEAD WO CONTRASTon NR CT HEAD WO CONTRAST Patient Name: PALLAVI LUJAN STUDY: CT HEAD WO CONTRAST; CT C-SPINE WO CONTRAST; 07/10/2021 6:48 pm INDICATION: intox, head trauma, Lie Flat: Yes; fall at [employer], neck pain, Lie Flat: Yes COMPARISON: None. ACCESSION NUMBER(S): [id number]; [id number] ORDERING CLINICIAN: JACQUELINE ROBLES; ADELSO LUTHER TECHNIQUE: [...] as stated. This study was interpreted at [place], [place]. Electronically signed by: ANDRIY PERKINS, Normal [facility] Provider Note - ED v3on - Provider Note - ED v3 Provider Note: [...] without assoc (more content not included)... Normal [facility] Risk Screen - Adult Emergenc yon 07-10-2021 Risk Screen - Adult Emergency Preferred Language: Preferred Language: Preferred Language for Discussing Health Care (patient/designee)[place]osoth[place] Advanced Directives: Advance Directive/DNRno Advance Directive Information [...] Communicatenone Learning Preferencesaudio Cultural Considerationsnone Developmental Considerationsnone Catholic Considerationsnone Other Learnersnone Learning Assessment (Other Learner): Learning Assessment (Other Learner): Other learner availableno Pressure Injury/TB/Substance: Pressure Injury: Pressure Injury Present on Admissionno Do you have a coughno Smoking Statusnever smoker (1) Alcohol Usedenies(1) Drug Usedenies (1) Drug 2 Usedenies (1) Admission Risk Screen: Significant IndicatorsComplete CAGE: CAGE: Is [place] an injured [place] a [place] Center [place] [place]): no Electronic Signatures: Uzma Menendez (CONSUELO) (Signed 10-Jul-2021 18:54) Authored: Preferred Language, Advanced Directives, Family Violence Adult, Learning Assessment (Patient), Learning Assessment (Other Learner), Pressure Injury/TB/Substance, Pressure Injury, CAGE Last Updated: 10-Jul-2021 18:54 by Uzma Menendez (CONSUELO) References: 1. Data Referenced From Provider Note - ED v3 10-Jul-2021 17:29 Normal [facility] Triage - EDon 07-10-2021 Triage [...] BMI (kg/m2): 34.485 Calculated BSA (m2) 2.08 Lyons Coma Scale: Best Eye Response: (E4) spontaneous Best Motor Response: (M6) obeys commands Best Verbal Response: (V5) oriented Merlin Score: 15 Cough lasting greater than 3 [...] Past Medical History, Active Electronic Signatures: Lazarus Gupta (RN) (Signed 10-Jul-2021 17:15) Entered: Risk Screens, Pain, Travel History, Chart Review, Scores, Past Medical History Authored: Quick Triage, Risk Screens, Pain, Travel History, Chart Review, Scores, Past Medical History Last Updated: 10-Jul-2021 17:15 by Lazarus Gupta (CONSUELO) Normal [facility] Cardiovascular Lab Reporton 09-22-2020 Cardiovascular Lab Report [facility] Patient Name: Pallavi Lujan [facility] MR #: [id number] Physician: Patrice Ochoa, Department of M.D. Medicine Service Date: 09/21/2020 Division of Birthdate: 1965 Cardiology Room #: [facility] [address] [address] Cardiovascular Laboratory Report FINAL IMPRESSIONS: 1. Mild [...] indicated. 4. Follow up with Dr. Winston Crane as scheduled. 5. Follow up with Dr. Ochoa as scheduled. PROCEDURES: Ultrasound-guided access to the [...] right internal jugular vein was obtained. A 6-Cook Islander 11 cm sheath was inserted without difficulty. [...] the right radial artery was obtained. A 6-[place] glide sheath was inserted without difficulty. Bilateral [...] abnormal stress test. Electronically Signed by: Patrice Ochoa M.D. 09/23/2020 01:05 P Patrice Ochoa M.D. Date Dict: 09/21/2020/04:38 P/Patrice Ochoa M.D. Date Trans: 09/22/2020 02:14 A/elma ARELLANO_JN:[id number] cc: Winston Crane M.D. [address] [place] [address] [facility] 02-01-2020 CNPN Telephone (COVHLD) PALLAVI LUJAN ([id number]) 1965 F Date Time Provider Department 02/01/20 ARLETTE ABRAHAM) NOELLE During your visit today, we recorded the following information about you: Arlette Abraham PA-C, PA 02/01/2020 10:03 AM Signed Brant, Thank you for the referral, this patient meets criteria for COVID-19 testing in accordance with criteria found on the [facility] Intranet COVID19 Toolkit as of February 01, 2020 10:02 AM Please inform the patient that the test has been ordered, and that the [facility] Scheduling Department will call to schedule test [...] Fully Assessed Reason for Visit: Covid-19 Hotline [4942] Primary Visit Diagnosis:Suspected Covid-19 Virus Infection [R68.89] Order(s):2019 CORONAVIRUS [SQCOVID] Order #: [id number] FUTURE MYCHART COVID-19 HOME MONITORING [3961386] Order #: [id number] Prescriptions as of 02/01/2020 Sig: ATORVASTATIN 80 [...] [F43.9] More... Anxiety [F41.9] BMI 40.0-44.9, adult ([facility]) [Z68.41] Encounter Status:Closed by ARLETTE ABRAHAM on 02/01/20 Normal [facility] Telephone (BLAZE) PALLAVI LUJAN ([id number]) 1965 F Date Time Provider Department 02/01/20 DEBBIE COSTA (RN) BLAZE During your visit today, we recorded the following information about you: Debbie Costa RN, RN 02/01/2020 9:32 AM Signed Telephone Nurse Triage for Flu-like symptoms Patient evaluated by telephone nursing triage.patient seen at [place] ED last nite.-Dx Bronchitis. zpak started and [...] to obvious respiratory distress or audible wheezing No Pallavi sounds very sick or weak to the [...] with PCP. If no PCP, send to [facility]. Patient instructed to call back [...] acetaminophen overdose can hurt the liver. ? [employer], the company that makes Tylenol, has different dosage instructions for Tylenol in [place] and the [place]. In [place], the maximum recommended dose per day is 4,000 mg or twelve (12) Regular-Strength (325 mg) pills. In the [place], [employer] recommends a maximum dose of ten (10) Regular-Strength (325 mg) pills. ? Before taking any medicine, read all the instructions on the package. PATIENT INSTRUCTIONS: At present, these are our recommendations regarding the coronavirus (COVID-19) outbreak: - Wash your hands regularly for at least 20 seconds with soap and water, especially before eating. - If soap/water are unavailable, use a hand irrigating pump operator with at least 60% alcohol - Avoid [...] large groups of people (sporting events, concerts, [place] abarca, etc). - Avoid unnecessary domestic and international travel, including travel through large international airports. - If traveling, wipe down your airplane seat (and tray) with a disinfecting wipe. If you have a fever, cough or shortness of breath, or are otherwise concerned you have COVID-19, we ask that you do not come to any [facility] facility without calling your primary care physician or speaking to a provider using a virtual visit using [facility] [employer]? Online. You will be evaluated to determine [...] Additional information can be found on the CDC and [facility] web sites: https://www.cdc.gov/coronavi gustabo/2019-nCoV/index.html ? 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 [facility] Comment on above: Result Comment: This test was developed and its performance characteristics determined by [facility]'s Adelso Carrasquillo [facility] Pathology and Laboratory Medicine [place]. This test has been authorized by FDA under an Emergency Use Authorization (EUA). This test has been validated in accordance with the FDA's Guidance Document Policy for Diagnostics Testing in Laboratories Certified to Perform High Complexity Testing under CLIA prior to Emergency use Authorization for Coronavirus Disease 2019 during the Public Health Emergency issued on December 20, 2019. 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 Author Type: Physician Burlap Bag Sewer Type: Progress Notes Filed: 02/01/2020 12:52 PM Note Text: Telemedicine Visit - Distance Health Virtual Visit Note This Team Access Model visit is a virtual encounter. It required patient-provider interaction for the medical decision making as documented below. Patient seen on [employer] platform. Location of patient: [place] History of Present Illness Pallavi Lujan is a 54 year old old female [...] in providing you the best care. [facility] PROGRESS HNO ID: [id number] Author: Cynthia Boogie) Alee Service: ? Author Type: Physician Burlap Bag Sewer Type: Progress Notes Filed: 02/01/2020 9:56 AM Note Text: Telemedicine Visit - Distance Health Telephone Visit Note This Team Access Model visit is a virtual encounter. It required patient-provider interaction for the medical decision making as documented below. The patient is a [facility] employee: No Location of patient: [place] History of Present Illness Pallavi Lujan is a 54 year old female who presents with 1 days of symptoms that are stable. Pt reports that yesterday she all of a sudden felt unwell. Went to ER in [place] last night and reports that tested negative [...] fail to improve Cynthia Vickers PA-C Normal [facility] CNOVon 05-26-2019 CNOV Office Visit (GSPSMN ) PALLAVI LUJAN ([id number]) 1965 F Date Time Provider Department 05/26/19 1:00 PM AMELIE ROBLEDO [facility] During your visit today, we recorded the following information about you: Amelie Robledo, PHD 05/26/2019 2:28 PM Signed [facility] BARIATRIC SURGERY BEHAVIORAL HEALTH EVALUATION DATE OF SERVICE: 05/26/2019 TIME OF SERVICE: 1:10 PM - 2:10 PM COST CENTER: [facility] CPT CODE: 88475 Psychiatric diagnostic evaluation BILLING CODE: ENDO PSYL MAIN JORGE ALBERTO8/Venkat DATE OF FIRST SERVICE THIS CYCLE: 05/26/2019 [...] old female. She was referred by Dr. Flores. Ms. Lujan is seeking gastric sleeve surgery [...] effective. The patient notes yazidism practice is: Adventism; will think about whether she'd take blood [...] AFTER COMPLETION OF GROUP (To schedule, call [phone]) *Continue to avoid alcohol in preparation for [...] emotional and behavioral readiness (To schedule call [phone]) *Read Preparing for Weight Loss Surgery: Workbook (Treatments That Work) by Kris Bazzi, Reji Ndiaye, and Monse Alcantar ([employer], 2006) *continue CPAP Adherence *implement [...] any questions. Amelie Robledo Ph.D., Clinical Psychologist; [facility] Director of Behavioral Services BEHAVIORAL HEALTH BARIATRIC [...] by AMELIE ROBLEDO PHD on 05/26/19 Normal [facility] CNOV Office Visit (GSPSMN ) PALLAVI LUJAN ([id number]) 1965 F Date Time Provider Department 05/26/19 12:00 PM PSYL TESTING MAIN GSPSMN During your visit today, we recorded the following information about you: Amelie Robledo, PHD 05/26/2019 3:52 PM Signed [facility] BAR[facility]ATRIC [facility] METABOLIC [facility] PSYCHOLOGICAL TEST REPORT PATIENT: Pallavi Lujan ( ) TEST ADMINISTERED: [place] Multiphasic Personality Inventory-2 Restructured Form (MMPI2-RF) Binge Eating Questionnaire (BEQ) DATE: ADMINISTERED: May 26, 2019 DATE REVIEWED: May 26, 2019 TIME REVIEWED (start/stop): 3:17 PM - 3:55 PM BILL Robledo, #: 14577.59 computer administration of test. 42649 (1 unit) The patient completed the MMPI2-RF in the [facility]ariat[facility] and Metabolic [place] and was proctored by trained personnel. The machine sign writer was available for help with the [...] AFTER COMPLETION OF GROUP (To schedule, call [phone]) *Continue to avoid alcohol in preparation for [...] emotional and behavioral readiness (To schedule call [phone]) *Read Preparing for Weight Loss Surgery: Workbook (Treatments That Work) by Kris Bazzi, Reji Ndiaye, and Monse Alcantar ([employer], 2006) *continue CPAP Adherence *implement [...] patient can request a written copy through [employer]. This report is not intended for forensic purposes. Amelie Robledo, Ph.D. Psychologist Referring Provider: SELF [200] Allergies As of Date: 05/26/2019 (No Known Allergies) Date Reviewed: 05/19/2019 Reviewed by: Vikas (Ravi) Nicanor - Fully Assessed Primary Visit Diagnosis:Psychological [...] Status:Closed by AMELIE ROBLEDO PHD on 05/26/[address] [facility] PROGRESSon 05-26-2019 PROGRESS HNO ID: [id number] Author: Amelie Robledo Service: ? Author Type: Physician Type: Progress Notes Filed: 05/26/2019 3:52 PM Note Text: [facility] PSYCHOLOGICAL TEST REPORT PATIENT: Pallavi Lujan ( ) TEST ADMINISTERED: [place] Multiphasic Personality Inventory-2 Restructured Form (MMPI2-RF) Binge Eating Questionnaire (BEQ) DATE: ADMINISTERED: May 26, 2019 DATE REVIEWED: May 26, 2019 TIME REVIEWED (start/stop): 3:17 PM - 3:55 PM BILL / Venkat, [facility]#: 37401.59 computer administration of test. 79613 (1 unit) The patient completed the MMPI2-RF in the [facility]ariat[facility] and Metabolic [place] and was proctored by trained personnel. The machine sign writer was available for help with the [...] AFTER COMPLETION OF GROUP (To schedule, call [phone]) *Continue to avoid alcohol in preparation for [...] emotional and behavioral readiness (To schedule call [phone]) *Read Preparing for Weight Loss Surgery: Workbook (Treatments That Work) by Kris Bazzi, Reji Ndiaye, and Monse Alcantar ([employer], 2006) *continue CPAP Adherence *implement [...] patient can request a written copy through [employer]. This report is not intended for forensic purposes. Amelie Robledo, Ph.D. Psychologist Normal [facility] PROGRESS HNO ID: [id number] Author: Amelie Robledo Service: ? Author Type: Physician Type: Progress Notes Filed: 05/26/2019 2:28 PM Note Text: [facility] BARIATRIC SURGERY BEHAVIORAL HEALTH EVALUATION DATE OF SERVICE: 05/26/2019 TIME OF SERVICE: 1:10 PM - 2:10 PM COST CENTER: [facility] CPT CODE: 82996 Psychiatric diagnostic evaluation BILLING CODE: ENDO PSYL [...] old female. She was referred by Dr. Flores. Ms. Lujan is seeking gastric sleeve surgery [...] effective. The patient notes yazidism practice is: Adventism; will think about whether she'd take blood [...] AFTER COMPLETION OF GROUP (To schedule, call [phone]) *Continue to avoid alcohol in preparation for [...] emotional and behavioral readiness (To schedule call [phone]) *Read Preparing for Weight Loss Surgery: Workbook (Treatments That Work) by Kris Bazzi, Reji Ndiaye, and Monse Alcantar ([employer], 2006) *continue CPAP Adherence *implement [...] any questions. Amelie Robledo Ph.D., Clinical Psychologist; [facility] Director of Behavioral Services BEHAVIORAL HEALTH BARIATRIC EVALUATION SUMMARY DATE : 05/26/2019 PATIENT NAME: Ms. Pallavi Lujan 1. Consent: Fair 2. Expectations:Fair 3. Social support :Good 4. Mental Health :Good 5. Chemical/Alcohol Abuse/Dependence: Guarded 6. Eating Behaviors:Good 7. Adherence : Good 8. Coping/Stressors:Fair 9. Overall Psychological Impression: Fair Normal [facility] CNCNPATEDon 05-19-2019 CNCNPATED Education (BMIREJ) PALLAVI LUJAN ([id number]) 1965 F Date Time Provider Department 05/19/19 10:00 AM VIKAS SANTOS (RAVI) BMIREJ Reason for Visit: Patient Education [91] [...] guidelines for weight loss surgery and [place] [employer] [place] [employer] therefore is required to complete 6 [...] 4. Participate in sitting exercise/therapy as possible. Cielo Marquis 30 minutes each - every other [...] May 19, 2019 TIME: 10:06 AM PAGER: [phone] Primary Visit Diagnosis:Class 3 severe obesity due [...] Encounter Status:Closed by VIKAS SANTOS on 05/19/[address] [facility] PROGRESSon 05-19-2019 PROGRESS HNO ID: [id number] Author: Vikas Santos Service: ? Author Type: [...] guidelines for weight loss surgery and [facility] [place] [place] therefore is required to complete 6 [...] May 19, 2019 TIME: 10:06 AM PAGER: [phone] Normal [facility] CNCNPATEDon 03-14-2019 CNCNPATED Education (BMIREJ) PALLAVI LUJAN ([id number]) 1965 F Date Time Provider Department 03/14/19 2:00 PM VIKAS SANTOS (RD) BMIREJ Reason for Visit: Reassessment [674] Patient Education [91] Progress Notes: Vikas Santos RD 03/14/2019 5:08 PM Signed [facility] AMBUL[facility]ORY PATIENT EDUCATION NOTE-Established Shared Nutrition Group [...] do you eat deep fried foods (chips, Cook Islander fries, fried meats, etc) Never How often [...] guidelines for weight loss surgery and has [employer] Insurance therefore is required to complete 6 [...] March 14, 2019 TIME: 4:55 PM PAGER: [phone] Primary Visit Diagnosis:Class 3 severe obesity due [...] Allergies) Date Reviewed: 03/14/2019 Reviewed by: Vikas Mendoza) Nicanor - Fully Assessed Prescriptions as of 03/14/2019 [...] Status:Closed by VIKAS SANTOS on 03/14/19 Normal [facility] PROGRESSon 03-14-2019 PROGRESS HNO ID: [id number] Author: Vikas Santos Service: ? Author Type: Registered Dietitian Type: Progress Notes Filed: 03/14/2019 5:08 PM Note Text: [facility] PATIENT EDUCATION NOTE-Established Shared Nutrition Group [...] do you eat deep fried foods (chips, [place] Islander fries, fried meats, etc) Never How often [...] guidelines for weight loss surgery and has [employer] [place] [employer] therefore is required to complete 6 [...] SIGNATURE: Vikas Santos RD PATIENT NAME: Pallavi Morelosuse DATE: March 14, 2019 TIME: 4:55 PM PAGER: [phone] Normal [facility] CNCNPATEDon 02-17-2019 CNCNPATED Education (BMIREJ) PALLAVI LUJAN ([id number]) 1965 F Date Time Provider Department 02/17/19 [...] skip meals. - - met 2.? Begin [id number] calorie partial liquid diet (refer to handout) [...] guidelines for weight loss surgery and has [employer] Insurance therefore is required to complete 6 [...] April appointment today prior to leaving at [facility] if preferred location Referred/Supervised by: Grant MYERS Billing Type: Re-assess/15 min 2 units SIGNATURE: Vikas Santos RD PATIENT NAME: Pallavi Lujan DATE: February 17, 2019 TIME: 8:38 AM PAGER: [phone] Primary Visit Diagnosis:Class 3 severe obesity due [...] Allergies) Date Reviewed: 02/17/2019 Reviewed by: Vikas Santos - Fully Assessed Prescriptions as of 02/17/2019 [...] Encounter Status:Closed by VIKAS SANTOS on 02/17/19 Normal [facility] PROGRESSon 02-17-2019 PROGRESS HNO ID: [id number] Author: Vikas Santos Service: ? Author Type: Registered Dietitian Type: Progress Notes Filed: 02/17/2019 11:26 AM Note Text: Nutritional Therapy Pre op weight loss surgery Sleeve Gastrectomy Re-Assessment PROGRESS: Nutrition Intervention (date of last encounter 01/17/2019) Read Your Guide to Surgery before next visit - - met 1.? Do not skip meals. - - met 2.? Begin 3642-4769 calorie partial liquid diet (refer to handout) [...] guidelines for weight loss surgery and has [employer] Insurance therefore is required to complete 6 months of Nutrition Intervention for clearance for surgery. Today is session 3 of 6. (Juan 12/19/18, Duy 01/17/19 and Nicanor, RAVI 02/17/19) Nutrition Diagnosis: Overweight Obesity, related to; [...] April appointment today prior to leaving at [facility] if preferred location Referred/Supervised by: Neo/Mark MYERS Billing Type: Re-assess/15 min 2 units SIGNATURE: Vikas Santos RD PATIENT NAME: Pallavi Lujan DATE: February 17, 2019 TIME: 8:38 AM PAGER: [phone] Normal [facility] CNOVon 02-14-2019 [facility] Office Visit (BMIREJ ) PALALVI LUJAN ([id number]) 1965 F Date Time Provider Department 02/14/19 1:40 PM YUNI FLORES) BMIREJ During your visit today, we recorded the following information about you: Pulse Blood pressure Weight Height 81/minute 128/76 136.4 kg 1.65 m Yuni Flores MD 02/14/2019 3:00 PM Signed Assessment NEW BARIATRIC PATIENT PATIENT NAME: Pallavi Lujan REASON FOR CONSULT: Morbid Obesity REQUESTING PHYSICIAN: Emmanuel DATE of SERVICE: 02/13/2019 TIME of SERVICE: 3:27 PM PCP: Winston Crane MD CC: Morbid Obesity HPI: Ms. Lujan [...] old with morbid obesity, patient of Winston Crane MD with a Body mass index is 50.12 kg/m?.. Patient is here today seeking information regarding weight loss. Patient's chronic medical conditions associated with obesity include Banner diabetes, hypertension taking Norvasc, lisinopril, metoprolol and [...] goal weight prior to liquid fast: Per poultry field service technician Surgically Cleared with completion of the below: [...] electronic medical record and US mail, Yuni Flores MD Referring Provider: YUNI FLORES) [[id number]] Allergies As of Date: 02/14/2019 (No Known Allergies) Date Reviewed: 02/14/2019 Reviewed by: Ernestine Spaulding - Fully Assessed Reason for Visit: New Patient [172] Primary Visit Diagnosis:Morbid obesity (HCC) [E66.01] Other Visit Diagnosis:Gastroesophageal reflux disease, esophagitis presence not specified [K21.9] Order(s):EGD [1231611] Order #: [id number] FUTURE Prescriptions as of 02/14/2019 Sig: ATORVASTATIN [...] Patient Letter Text Encounter Status:Closed by YUNI FLORES on 02/14/[address] [facility] PROGRESSon 02-14-2019 PROGRESS HNO ID: [id number] Author: Yuni Valverde) Neo Service: ? Author Type: Physician Type: Progress Notes Filed: 02/14/2019 3:00 PM Note Text: Assessment NEW BARIATRIC PATIENT PATIENT NAME: Pallavi Lujan REASON FOR CONSULT: Morbid Obesity REQUESTING PHYSICIAN: Self DATE of SERVICE: 02/13/2019 TIME of SERVICE: 3:27 PM PCP: Winston Crane MD CC: Morbid Obesity HPI: Ms. Lujan [...] old with morbid obesity, patient of Winston Crane MD with a Body mass index is 50.12 kg/m?.. Patient is here today seeking information regarding weight loss. Patient's chronic medical conditions associated with obesity include Banner diabetes, hypertension taking Norvasc, lisinopril, metoprolol and [...] goal weight prior to liquid fast: Per poultry field service technician Surgically Cleared with completion of the below: [...] electronic medical record and US mail, Yuni Flores MD [facility] PROGRESSon 12-19-2018 Protein mass conc HNO ID: [id number] Author: Alin Fisher (Tech) Service: Radiology Author Type: Public Finance Specialist Type: Progress Notes Filed: 12/19/2018 2:41 PM [...] IV DATA: Not applicable SIGNED BY: IDANIA JIM December 19, 2018 2:40 PM [facility] XR CHEST 2V FRONTAL/LATon XR CHEST [...] silhouette. Other: . IMPRESSION: Mild bibasilar atelectasis. Wireless Communications Engineer: PSCB Transcribe Date/Time: Dec 19 2018 2:47P Dictated by : RUTH ANN OWENS MD This examination was interpreted and the report reviewed and electronically signed by: RUTH ANN OWENS MD on Dec 19 2018 2:48PM EST [id number] [facility] Vital Signs Date Time Vital Sign Value Performing Clinician Facility 02-14-2023 15:47-0400 Blood Pressure Location David MACKL [facility] 02-14-2023 15:47-0400 Diastolic blood pressure 82 mm[Hg] David MACKL [facility] 02-14-2023 15:47-0400 Heart rate 82 /min David MACKL [facility] 02-14-2023 15:47-0400 Respiratory rate 16 /min David MACKL [facility] 02-14-2023 15:47-0400 Systolic blood pressure 132 mm[Hg] David MACKL [facility] [place] 02-04-2023 13:50-0400 Body height 165.1 cm Kaitlin Lani Other [facility] 02-04-2023 13:50-0400 Body mass index (BMI) [Ratio] 35.44 kg/m2 Kaitlin Lani [facility] 02-04-2023 13:50-0400 Body temperature 97.1 [degF] Kaitlin Contrerasmond Other [facility] 02-04-2023 13:50-0400 Body weight 96.62 kg Kaitlin Lani Other [facility] 02-04-2023 13:50-0400 Diastolic blood pressure 71 mm[Hg] Kaitlin Lani Other [facility] 02-04-2023 13:50-0400 Respiratory rate 18 /min Kaitlin Lani Other [facility] 02-04-2023 13:50-0400 SaO2% (BldA) [Mass fraction] 96 % Kaitlin Contrerasmond Other [facility] 02-04-2023 13:50-0400 Systolic blood pressure 110 mm[Hg] Kaitlin Contrerasmond Other [facility] 01-16-2023 16:45-0400 Body height 165.1 cm Yolie Cross Other [facility] 01-16-2023 16:45-0400 Body mass index (BMI) [Ratio] 36.27 kg/m2 Yolie Cross [facility] 01-16-2023 16:45-0400 Body temperature 97.3 [degF] Yolie Cross Other [facility] 01-16-2023 16:45-0400 Body weight 98.88 kg Yolie Cross Other [facility] 01-16-2023 16:45-0400 Respiratory rate 18 /min Yolie Cross Other [facility] 01-16-2023 16:45-0400 SaO2% (BldA) [Mass fraction] 97 % Yolie Cross Other [facility] 09-04-2022 13:50-0500 Body height 165.1 cm Kaitlin Contrerasmond Other [facility] 09-04-2022 13:50-0500 Body mass index (BMI) [Ratio] 35.94 kg/m2 Kaitlin Lani Other [facility] 09-04-2022 13:50-0500 Body temperature 97.1 [degF] Kaitlin Contrerasmond Other [facility] 09-04-2022 13:50-0500 Body weight 97.98 kg Kaitlin Contrerasmond Other [facility] 09-04-2022 13:50-0500 Diastolic blood pressure 75 mm[Hg] Kaitlin Lani Other [facility] 09-04-2022 13:50-0500 Respiratory rate 18 /min Kaitlin Contrerasmond Other [facility] 09-04-2022 13:50-0500 SaO2% (BldA) [Mass fraction] 97 % Kaitlin Garibay Other [facility] 09-04-2022 13:50-0500 Systolic blood pressure 141 mm[Hg] Kaitlin Garibay [facility] 08-27-2022 10:35-0500 Body height 165.1 cm Yolie Tay Other [facility] 08-27-2022 10:35-0500 Body mass index (BMI) [Ratio] 36.07 kg/m2 Yolie Cross Other [facility] 08-27-2022 10:35-0500 Body temperature 97.6 [degF] Yolie Cross [facility] 08-27-2022 10:35-0500 Body weight 98.34 kg Yolie Cross [facility] 11-06-2022 10:35-0500 Diastolic blood pressure 81 mm[Hg] Yolie Cross Other [facility] 08-27-2022 10:35-0500 Respiratory rate 18 /min Yolie Cross Other [facility] 08-27-2022 10:35-0500 SaO2% (BldA) [Mass fraction] 98 % Yolie Cross [facility] 08-27-2022 10:35-0500 Systolic blood pressure 126 mm[Hg] Yolie Cross [facility] 08-18-2021 15:30-0400 Body height 165.1 cm Tai Olexa [facility] 08-18-2021 15:30-0400 Body mass index (BMI) [Ratio] 48.25 kg/m2 Tia Olexa [facility] 08-18-2021 15:30-0400 Body weight 131.54 kg Tai Olexa [facility] 07-10-2021 19:10-0400 Body height 165.1 cm Pcp Unknown [facility] 07-10-2021 19:10-0400 Body temperature 97.52 [degF] Pcp Unknown [facility] 07-10-2021 19:10-0400 Body weight 94 kg Pcp Unknown [facility] 07-10-2021 19:10-0400 Diastolic blood pressure 68 mm[Hg] Pcp Unknown [facility] 07-10-2021 19:10-0400 Heart rate 78 /min Pcp Unknown [facility] 07-10-2021 19:10-0400 Respiratory rate 16 /min Pcp Unknown [facility] 07-10-2021 19:10-0400 SaO2% (BldA) [Mass fraction] 96 % Pcp Unknown [facility] 07-10-2021 19:10 Systolic blood pressure 127 mm[Hg] Pcp Unknown [facility] Encounters Encounter Date Encounter Type Care Provider Facility Start: 01-16-2024 End: 01-16-2024 ambulatory PATRICE OCHOA [facility] Start: 04-25-2023 End: 04-26-2023 ambulatory [facility] Start: 04-25-2023 End: 04-25-2023 Patient encounter procedure David R NILL [facility] Start: 04-11-2023 End: 04-12-2023 ambulatory David R NILL Facility:CD:[id number] Start: 03-14-[address] WINSTON CRANE . Facili ty:[facility] Start: 02-14-2023 End: 02-15-2023 ambulatory [facility]ILL [facility] Start: 02-14-2023 End: 02-14-2023 Patient encounter procedure David R NILL [facility] Start: 02-04-2023 End: 02-04-2023 ambulatory Kaitlin Garibay [facility] Start: 02-04-2023 Office outpatient vi sit 15 minutes Kaitlin Garibay [facility] Start: 01-25-2023 ambulatory David NILL Facility:[facility] [place] Start: 01-19-2023 Encounter for genera l adult medical examination without abnormal findings DR WINSTON CRANE . [facility] Start: 01-19-2023 End: 01-19-2023 ambulatory LAUREEN DAVENPORT [facility] Start: 01-16-2023 Office outpatient vi sit 15 minutes Yolie Cross [facility] Start: 01-16-2023 End: 01-17-[address] WINSTON CRANE . [facility] Start: 01-16-2023 End: 01-17-2023 Encounter for general adult medical examination without abnormal findings DR WINSTON CRANE . Facility:[facility] Start: 09-04-2022 End: 09-04-2022 ambulatory Kaitlin Lani [facility] Start: 09-04-2022 Office outpatient vi sit 15 minutes Kaitlin Lani [facility] Start: 08-27-2022 End: 08-27-2022 ambulatory Yolie Cross [facility] Start: 08-27-2022 Office outpatient vi sit 25 minutes Yolie Tay [facility] Start: 07-05-2022 End: 07-06-[address] PATRICE OCHOA Facility:[facility] Start: 06-30-2022 End: 07-01-[address] WINSTON CRANE . Facility:[facility] Start: 11-01-2021 End: 11-01-2021 ambulatory Tai Olexa [facility] Start: 11-01-2021 Postop follow up vis it related to original px Tai Olexa [facility] Start: 10-17-2021 End: 10-17-2021 ambulatory Tai Olexa [facility] Start: 10-17-2021 Telephone encounter Tai Olexa [facility] Start: 09-21-2021 End: 09-21-2021 ambulatory Tai Olexa [facility] Start: 09-21-2021 Telephone encounter Tai Olexa [facility] Start: 08-18-2021 Encounter for other preprocedural examination Tai Olexa [facility] Start: 08-18-2021 Office outpatient ne w 45 minutes Tai Olexa [facility] Start: 07-10-2021 End: 07-10-2021 Emergency department patient visit Jacqueline Robles [facility] Adult ED Gold 04 Start: 12-19-2018 Encounter for other preprocedural examination [facility] Start: 12-19-2018 Patient encounter procedure [facility] Procedures Date Procedure Procedure Detail Performing Clinician Start: 04-11-2023 Colonoscopy David NILL Start: 04-11-2023 Esophagogastroduodenoscopy David NILL Start: 10-22-2020 Gastric sleeve David NILL Decompression of median nerve David NILL H/O: tubal ligation David NILL History of operative procedure on elbow David NILL Repair of meniscus David N ILL Immunizations Immunization Date Immunization Notes Care Provider [facility] 02-04-2023 tetanus toxoid, reduced diphtheria toxoid, and acellular pertussis vaccine, adsorbed Kaitlin Lani [facility] 07-10-2021 tetanus toxoid, reduced diphtheria toxoid, and acellular pertussis vaccine, adsorbed Pcp Unknown [facility] 05-21-2021 SARS-CoV-2 (COVID-19 ) mRNA-1273 vaccine David NILL [facility] 04-19-2021 SARS-CoV-2 (COVID-19 ) mRNA-1273 vaccine David NILL [facility] NEGATED: Highlighted row has not occurred!02-14-2023 influenza virus vaccine, unspecified formulation David NILL [facility] Payers Date Payer Category Payer Unknown [id number] 2.16.84 [id number] 1965 Unknown [id number] 2.16.84 [id number] 1965 Unknown [id number] 2.16.84 [id number] 1965 Unknown [id number] 2.16.84 [id number] 1965 Unknown [id number] 1965 Unknown [id number] 1965 Unknown [id number] 1965 Unknown [id number] 1960 Medicaid [id number] 2. [id number] 1960 Unknown [id number] 2.1 [id number] Unknown [employer] Social History Date Type Detail Facility [facility] Tobacco smoking consumption unknown [facility] Sex Assigned [facility] Start: 02-14-2023 Tobacco smoking status Ex-smoker (finding) [facility] Tobacco smoking status Never [facility] Functional Status Date Assessment Result Facility 02-14-2023 Functional Status N/A [facility] Clinical Notes 08-18-2021 to 01-16-2024 Note Date & Type Note Facility 01-16-2024 Note [facility] Cardiology Clinic Note Chief Complaint: Patient here for 1 year follow up CAD, hypertension, and diastolic heart failure. Routine labs were drawn last month. Says her BP has been all over the place lately. Depending on BP throughout the day, she will either take 20mg or 40mg of lisinopril. Denies chest pain, SOB, palpitations, and LE edema. HPI: Pallavi Lujan is a 58 y.o. female With a history of mild coronary artery disease, diastolic dysfunction and hypertension here in routine follow-up Doing well; no new cardiac symptoms Cardiology ROS: Review of Systems Respiratory: Positive for cough. Musculoskeletal: Positive for muscle weakness (when BP is low). Neurological: Positive for light-headedness (when BP is low). All other systems reviewed and are negative. Past Medical History She has no past medical history on file. Surgical History She has no past surgical history on file. Social History She reports that she quit smoking about 7 years ago. Her smoking use included cigarettes. She has a 15.00 pack-year smoking history. She has been exposed to tobacco smoke. She has never used smokeless tobacco. She reports current alcohol use of about 9.0 standard drinks of alcohol per week. She reports that she does not use drugs. Family History No family history on file. Allergies Latex Medications Current Outpatient Medications: albuterol 90 mcg/actuation inhaler, INHALE 2 PUFFS BY MOUTH 4 TIMES A DAY NEEDED, Disp: , Rfl: aspirin 81 mg chewable tablet, CHEW 1 TABLET BY MOUTH EVERY DAY, Disp: , Rfl: atorvastatin (Lipitor) 80 mg tablet, TAKE 1 TABLET BY MOUTH ONCE EVERY MORNING, Disp: 90 tablet, Rfl: 3 carvedilol (Coreg) 12.5 mg tablet, Take 12.5 mg by mouth if needed in the morning and at bedtime for high blood pressure. BP > 150/90, Disp: , Rfl: celecoxib (CeleBREX) 200 mg capsule, Take 1 tablet by mouth in the morning., Disp: , Rfl: diazePAM (Valium) 5 mg tablet, TAKE 1 TABLET BY MOUTH TWICE A DAY TAKE 60 MINUTES PRIOR TO PROCEDURE, Disp: , Rfl: docusate sodium (Colace) 100 mg capsule, TAKE 1 CAPSULE BY MOUTH ONCE TO TWICE DAILY, Disp: , Rfl: ferrous sulfate 325 (65 Fe) MG tablet, Take 1 tablet by mouth in the morning and at bedtime., Disp: , Rfl: furosemide (Lasix) 20 mg tablet, Take 1 tablet (20 mg) by mouth once daily as directed., Disp: 90 tablet, Rfl: 3 Linzess 72 mcg capsule, Take 72 mcg by mouth in the morning., Disp: , Rfl: lisinopril 40 mg tablet, Take 40 mg by mouth in the morning., Disp: , Rfl: oxybutynin (Ditropan) 5 mg tablet, Take 1 tablet by mouth in the morning., Disp: , Rfl: pantoprazole (ProtoNix) 40 mg EC tablet, Take 1 tablet by mouth in the morning and at bedtime., Disp: , Rfl: tiZANidine (Zanaflex) 4 mg tablet, Take 1 tablet by mouth in the morning., Disp: , Rfl: Last Recorded Vitals BP 126/84 (BP Location: Left arm, Patient Position: Sitting) Pulse 80 Ht 1.676 m (5' 6 ) Wt 101 kg (222 lb) SpO2 98% BMI 35.83 kg/m??? Physical Examination: GENERAL: alert and oriented x3, well developed, in no acute distress. HEAD: atraumatic, normocephalic. EYES: ES, EOMI. NECK: trachea midline, no JVD present, no carotid bruits present. CARDIAC: S1, S2 present. RRR. No murmur, rubs, or gallops. RESPIRATORY: CTAB, no increased effort of breathing, no rales, rhonchi, or wheezing. ABDOMEN: soft, nontender, nondistended. EXTREMITIES: no lower extremity edema, peripheral pulses are 2+ bilaterally. No rash/skin discoloration present. NEURO: strength/sensation equal and symmetric in bilateral upper and lower extremities. PSYCH: appropriate mood, affect, and judgement. CV Testin01/06/2019 Echo 09/21/2020 Cath Service Date: 09/21/2020 Cardiovascular Laboratory Report FINAL IMPRESSIONS: 1. Mild [...] indicated. 4. Follow up with Dr. Winston Crane as scheduled. 5. Follow up with Dr. Ochoa as scheduled. Assessment: Coronary atherosclerosis; mild coronary disease cardiac catheterization 09/2022 Heart failure with preserved ejection fraction Essential hypertension Obesity s/p gastric sleeve surgery Plan: Continue guideline directed medical therapy for coronary artery disease including aspirin, high intensity statin therapy, beta-denzel and an angiotensin-c (more content not included)... [facility] 02-15-2023 Note Chief Complaint consultation for anemia HPI Staff 57 year old female presents on consultation from Dr. Crane for anemia. HGB 10.5, HCT 32.3, iron [...] than 30 d (more content not included)... [facility] Comment on above: Result Comment: Elec tronically Signed By: ANNABEL BERRY, David Joyce\Date and Time Signed: 02/15/23 16:26 EDT 02-04-2023 Evaluation note Encounter Date Diagnosis Assessment Notes Jan, Cellulitis of right hand (ICD-10 - L03.113) Cellulitis: adult home care material was printed Drink plenty fluids, get plenty of rest. Continue home medications as prescribed. Take the cephalexin as prescribed until gone. Take Tylenol or Motrin for aches pains or fevers. Follow-up with your family physician if no improvement in 2 to 3 days [facility] 03-31-2023 NoteHypertension is currently well controlled- 124/76 Continue all meds- lisinopril, lasix, coreg prnUnOhioHealth03-31-2023 NoteNYHC II Continue GDMT- Lasix 20 mg daily- Diuretic therapy Monitor daily weights, I&O, fluid restriction 1.5-2L/day, renal function and electrolytesUnOhioHealth03-31-2023 NoteCoronary artery disease is Without any concerning symptoms Continue goal-directed medical therapy including aspirin, Lipitor, carvedilol, lisinopril Continue heart healthy diet, regular exerciseUnOhioHealth 01-19-2023 NoteUTP CARDIOLOGY PROGRESS NOTE HPI: Pallavi [...] episodes of hypertension and her PCP Dr. Crane gave her carvedilol 12.5 mg twice daily [...] diet, regular exercise Diastolic heart failure (CMS/HCC) [facility] II (more content not included)...[facility]03-28-2023 Evaluation note* Encounter Date Diagnosis Assessment Notes [...] treatment plan. Patient left in stable condition. [facility] 11-14-2022 Evaluation note* Encounter Date Diagnosis [...] no improvement in 2 to 3 days. [facility] 11-06-2022 Evaluation note* Encounter Date Diagnosis [...] and rest, Tylenol/Motrin as directed, rx of [place] and Flonase, cool mist humidifier, throat lozenges. [...] condition Aug, Sore throat (ICD-10 - J02.9) [facility] 01-11-2022 Evaluation note* Encounter Date Diagnosis [...] remova l of sutures (ICD-10 - Z48.02) [facility] 12-27-2021 Evaluation note* Encounter Date Diagnosis Assessment Notes Treatment Notes Treatment Clinical Notes Sep, Other specified postprocedural states (ICD-10 - Z98.890) [facility] 10-28-2021 Evaluation note* Encounter Date Diagnosis [...] outcome. Jul, Pre-op exam (ICD-10 - Z01.818) [facility] Evaluation + Plan note No data available for this section [facility] [place] Evaluation noteNo InformationNortSpace Pencil Other History general Narrative - Reported* Type Description Date Medical History Hypertension Medical History hypercholesterolemia Medical History urinary frequency Medical History acid reflux Medical History Arthritis Medical History pre diabetic Surgical History knee surgery 2010 Surgical History tubal ligation Surgical History ankle surgery Hospitalization History see above surgical [facility] Other History general Narrative - Reported* Type Description Date Medical History Hypertension Medical History hypercholesterolemia Medical History urinary frequency Medical History acid reflux Medical History Arthritis Medical History pre diabetic Surgical History knee surgery 2010 Surgical History tubal ligation Surgical History ankle surgery Surgical History gastric bypass Hospitalization History see above [facility] Other [facility] general Narrative - Reported* Type Description Date Medical History Hypertension Medical History hypercholesterolemia Medical History urinary frequency Medical History acid reflux Medical History Arthritis Medical History pre diabetic Surgical History knee surgery 2010 Surgical History tubal ligation Surgical History ankle surgery Surgical History gastric bypass Surgical History right elbow Surgical History carpal tunnel Hospitalization History see above surgical [facility] Other Hospital Discharge instructions No data available for this section General Surgery [place] Progress note No data available for this section General Surgery [place] Summary Purpose Family History No Family History [...] content) DATE CREATED AUTHOR 12/20/2018 [facility] DATE CREATED AUTHOR AUTHOR'S ORGANIZ ATION 02/04/2020 [facility] DATE CREATED AUTHOR AUTHOR'S ORGANIZ ATION 08/27/2021 [facility] DATE CREATED AUTHOR AUTHOR'S ORGANIZ ATION 08/29/2021 [facility] DATE CREATED AUTHOR AUTHOR'S ORGANIZ ATION 03/07/2023 [facility] DATE CREATED AUTHOR AUTHOR'S ORGANIZ ATION 04/26/2023 [facility] DATE CREATED AUTHOR AUTHOR'S ORGANIZ ATION 01/18/2024 [facility] <item> Privacy Markings (unrecogniz ed section and [...] (unrecognized section and content) Personnel Name: Winston Crane MD Address: Address: [address] [place] [address] Personnel Name: Winston Crane MD Address: Address: [address] [place] [address] FOR RECORDS PERTAINING TO PATIENTS WHO ARE [...] BE BASED ON THE PRIMARY CLINICAL RECORDS. [facility]. provides no warranty or guarantee of the accuracy or completeness of information in this document.
--- OUTSIDE RECORDS SUMMARY | 2024-10-16 08:38 | XMS_ITS | CCD ---
Author Organization [facility] Care Team Providers Care Professor Of Business Name Role Phone ISAAC LAROSE Referring Unavailable Unknown, Pcp Unavailable Unavailable Jacqueline Robles Unavailable NnamdiTai martell Unavailable Tay Yolie Unavailable Kaitlin Garibay Unavailable Winston Crane Primary Care Physician DEEPAK ., DR MONTERO [...] Onset Reaction(s) Facility (1 source) Cat Angioedema [facility] (1 source) DrugAllergiesUnable to Obtain [facility] Comment on above: Pharmacy/MD office jackelyn de souza (5 sources) Latex; Translations: [latex] Drug allergy 3 lips [facility] Medications Current Medications Medication Drug Class(es) Dates Sig (Normalized) Sig (Original) Acetaminophen (8 sources) Tylenol Active [id number] 200 actuat albuterol 0.09 mg/actuat metered dose [...] 1.5 mg/ml oral solution (2 sources) Uncompetitive F-xqscnp-R-asparta te Receptor Antagonist, Sigma-1 Agonist Start: 08-27-2022 take 10 mL by mouth every eight hours [place] DM 7.5-7.5 MG/5ML 10 mL Orally every [...] Coronary arteriosclerosis; Translations: [Atherosclerotic heart disease of [place] coronary artery without angina pectoris] Onset: 07-04-2022 [...] Range Facility Office Visiton 01-16-2024 Follow-up visit [id number] Jackelyn Lujan 1965 F Date Provider Department Center 01/16/2024 271-DON, EH CARD [facility] No family history on file Level of Service:05851 MD OFFICE/OUTPATIENT ESTABLISHED MOD MDM 30 MIN Normal [facility] Ambulatory Visit Summaryon 0 04-25-2023 Ambulatory Visit [...] longer receiving treatment for. Arthritis Numbness Normal [facility] General Surgery Office/Clini c Noteon 04-25-2023 [...] Recorded SARS-CoV-2 (COVID-19) mRNA-1273 vaccine 04/19/[address] [facility] Comment on above: Result Comment: Elec tronically Signed By: ANNABEL BERRY, David Murphy\.br\Date and Time Signed: 04/25/23 16:13 EDT Pathology Noteon 04-16-2023 Pathology Note [id number]#[id number]:[address] [facility] Outside Colonoscopyon 2022 Outside Colonoscopy [id number]:[address] [facility] Reminderson 04-12-2023 Reminders - From: Myra Escoebdo LPN To: N - Clinical; Sent: 04/12/2023 13:58:02 EDT Show up: 03/11/2033 07:00:00 EDT Subject: colonoscopy recall Due Date/Time: 04/11/2033 07:00:00 EDT Reminder/Recall Patient due for screening colonoscopy 04/11/2033. [facility] Pre-Certification Formon Pre-Certification Form [id number]:[address] [facility] Consent for Procedure/Surger yon 02-16-2023 Consent for Procedure/Surgery [id number]:[address] [facility] Facesheeton 02-15-2023 Facesheet [id number]#[id number]:[address] [facility] Ambulatory Visit Summaryon 0 02-14-2023 [...] longer receiving treatment for. Arthritis Numbness Normal [facility] Physician Referralon 023 Physician Referral [id number]:127 Normal [facility] Office Visiton 01-19-2023 Follow-up visit [id number] Jackelyn Lujan 1965 F Date Provider Department Center 01/19/2023 120-LAUREEN DAVENPORT [facility] CARD [facility] No family history on file Level of Service:64351 MD OFFICE/OUTPATIENT ESTABLISHED MOD MDM 30-39 MIN Reason for Visit and Comments: Follow-up [076262] - Yearly Palpitations [242050] - Went away w/ stopping coffee Normal [facility] INSULINon 01-17-2023 Insulin 7.1 uIU/mL Normal 2.6-24.9 [facility] Comment on above: Performed By: #### I NSULIN #### [facility] [address] [place] [address] Dr. Demetri Leahy CBC AUTO DIFFon 01-16-2023 BASO # 0.0 103/ul Normal 0.0-0.1 [facility] Comment on above: Performed By: #### C BC #### [facility] [address] [place] [address] Dr. Demetri Leahy Basophils/100 WBC (Bld) 0.7 % Normal 0.2-2.0 [facility] Comment on above: Performed By: #### C BC #### [facility] [address] [place] [address] Dr. Demetri Leahy EO # 0.1 103/ul Normal 0.0-0.7 [facility] Comment on above: Performed By: #### C BC #### [facility] [address] [place] [address] Dr. Demetri Leahy Eosinophils/100 WBC (Bld) 2.4 % Normal 0.9-7.0 [facility] Comment on above: Performed By: #### C BC #### [facility] [address] [place] [address] Dr. Demetri Leahy Erythrocyte distribution width (RBC) [Ratio] 12.9 % Normal 11.0-15.0 [facility] Comment on above: Performed By: #### C BC #### [facility] [address] [place] [address] Dr. Demetri Leahy Hematocrit (Bld) [Volume fraction] 32.3 % Critically low 36.0-48.0 [facility] Comment on above: Performed By: #### C BC #### [facility] [address] [place] [address] Dr. Demetri Leahy Hemoglobin (Bld) [Mass/Vol] 10.5 g/dL Critically low 12.0-16.0 [facility] Comment on above: Performed By: #### C BC #### [facility] [address] [place] [address] Dr. Demetri Leahy IG # 0.01 10e3/ul Normal 0.00-0.03 [facility] Comment on above: Performed By: #### C BC #### [facility] [address] [place] [address] Dr. Demetri Leahy IG % 0.2 % Normal 0.0-0.5 [facility] Comment on above: Performed By: #### C BC #### [facility] [address] [place] [address] Dr. Demetri Leahy LYMPH # 1.3 103/ul Normal 1.2-3.8 [facility] Comment on above: Performed By: #### C BC #### [facility] [address] [place] [address] Dr. Demteri Leahy Lymphocytes/100 WBC (Bld) 21.9 % Normal 20.5-60.0 [facility] Comment on above: Performed By: #### C BC #### [facility] [address] [place] [address] Dr. Demetri Leahy MANUAL DIFF REQ NO Normal [facility] Comment on above: Performed By: #### C BC #### [facility] [address] [place] [address] Dr. Demetri Leahy MCH (RBC) [Entitic mass] 31.4 pg Normal 26.7-34.0 [facility] Comment on above: Performed By: #### C BC #### [facility] [address] [place] [address] Dr. Demetri Leahy MCHC (RBC) [Mass/Vol] 32.5 g/dL Normal 29.9-35.2 [facility] Comment on above: Performed By: #### C BC #### [facility] [address] [address] [address] Demetri Leahy MCV (RBC) [Entitic vol] 96.7 fL Normal 81.0-99.0 [facility] Comment on above: Performed By: #### C BC #### [facility] [address] [address] [address] Demetri Leahy MONO # 0.6 103/ul Normal 0.3-0.8 [facility] Comment on above: Performed By: #### C BC #### [facility] [address] [place] [address] Dr. Demetri Leahy Monocytes/100 WBC (Bld) 9.9 % Normal 1.7-12.0 [facility] Comment on above: Performed By: #### C BC #### [facility] [address] [place] [address] Dr. Demetri Leahy NEUT # 3.9 103/ul Normal 1.4-6.5 [facility] Comment on above: Performed By: #### C BC #### [facility] [address] [place] [address] Dr. Demetri Leahy Neutrophils/100 WBC (Bld) 64.9 % Normal 43.0-75.0 [facility] Comment on above: Performed By: #### C BC #### [facility] [address] [place] [address] Dr. Demetri Leahy Platelet mean volume (Bld) [Entitic vol] 9.0 fL Critically low 9.5-13.5 [facility] Comment on above: Performed By: #### C BC #### [facility] [address] [place] [address] Dr. Demetri Leahy PLT 210 103/ul Normal 150-450 [facility] Comment on above: Performed By: #### C BC #### [facility] [address] [address] [address] Demetri Leahy RBC 3.34 106/ul Critically low 4.20-5.40 [facility] Comment on above: Performed By: #### C BC #### [facility] [address] [place] [address] Dr. Demetri Leahy WBC 5.9 103/ul Normal 4.0-11.0 [facility] Comment on above: Performed By: #### C BC #### [facility] [address] [place] [address] Dr. Demetri Leahy FREE THYROXINE INDEX T7on FTI 2.05 Normal 1.30-4.50 [facility] Comment on above: Performed By: #### T 7, TSH, LIPID, CMP #### [facility] [address] [place] [address] Dr. Demetri Leayh T3U 36.0 % Normal 30.0-39.0 [facility] Comment on above: Performed By: #### T 7, TSH, LIPID, CMP #### [facility] [address] [place] [address] Dr. Demetri Leahy T4 [Mass/Vol] 5.70 ug/dL Normal 4.80-13.90 [facility] Comment on above: Performed By: #### T 7, TSH, LIPID, CMP #### [facility] [address] [place] [address] Dr. Demetri Leahy GLYCOHEMOGLOBIN A1Con 2022 ADA RECOMMENDATION SEE BELOW Normal [facility] Comment on above: Result Comment: ADA RECOMMENDED LIMIT 4.0 - 6.0 ADA THERAPEUTIC TARGET < 7.0 ACTION SUGGESTED > 7.0 Performed By: #### A 1C #### [facility] [address] [place] [address] Dr. Demetri Leahy Glucose [Mass/Vol] 88 mg/dL Normal [facility] Comment on above: Performed By: #### A 1C #### [facility] [address] [place] [address] Dr. Demetri Leahy HbA1c (Bld) [Mass fraction] 4.7 % Normal 4.5-6.2 [facility] Comment on above: Performed By: #### A 1C #### [facility] [address] [address] [address] Demetri Leahy IRONon 01-16-2023 Iron [Mass/Vol] 41.0 ug/dL Critically low 50.0-170.0 [facility] Comment on above: Performed By: #### I BRYAN #### [facility] [address] [address] [address] Demetri Leahy LIPID PROFILEon 01-16-2023 CHOL-HDL RATIO NORM SEE BELOW Normal [facility] Comment on above: Result Comment: 3.3 - 4.4 LOW RISK 4.4 - 7.1 AVERAGE RISK 7.1 - 11.0 MODERATE RISK >11.0 HIGH RISK Performed By: #### T 7, TSH, LIPID, CMP #### [facility] [address] [address] [address] Demetri Leahy Cholesterol [Mass/Vol] 145 mg/dL Normal <=200 [facility] Comment on above: Performed By: #### T 7, TSH, LIPID, CMP #### [facility] [address] [address] [address] Demetri Leahy Cholesterol in HDL [Mass/Vol] 71 mg/dL Critically high 40-60 [facility] Comment on above: Performed By: #### T 7, TSH, LIPID, CMP #### [facility] [address] [address] [address] Demetri Leahy Cholesterol in LDL [Mass/Vol] 42.4 mg/dL Normal [facility] Comment on above: Performed By: #### T 7, TSH, LIPID, CMP #### [facility] [address] [address] [address] Demetri Leahy Cholesterol.total /Cholesterol in HDL [Mass ratio] 2.0 {ratio} Normal [facility] Comment on above: Performed By: #### T 7, TSH, LIPID, CMP #### [facility] [address] [place] [address] Dr. Demetri Leahy HDL NORMAL > or = 60 mg/dl - LO W CARDIOVASCULAR RISK <40 mg/dl - HIGH CARDIOVASCULAR RISK Normal [facility] Comment on above: Performed By: #### T 7, TSH, LIPID, CMP #### [facility] [address] [address] [address] Demetri Leahy LDL CALC NORMAL SEE BELOW Normal [facility] Comment on above: Result Comment: <100 mg/dl OPTIMAL 100 - 129 mg/dl NEAR OR ABOVE OPTIMAL 130 - 159 mg/dl BORDERLINE HIGH 160 - 189 mg/dl HIGH >190 mg/dl VERY HIGH Performed By: #### T 7, TSH, LIPID, CMP #### [facility] [address] [address] [address] Demetri Leahy Triglyceride [Mass/Vol] 158 mg/dL Critically high <=150 [facility] Comment on above: Performed By: #### T 7, TSH, LIPID, CMP #### [facility] [address] [address] [address] Demetri Leahy VLDL CALC 31.6 mg/dL Normal [facility] Comment on above: Performed By: #### T 7, TSH, LIPID, CMP #### [facility] [address] [address] [address] Demetri Leahy OCC BLD IMMUNO SCREENon 12-21 OCCULT BLOOD Negative Normal NEGATIVE [facility] Comment on above: Performed By: #### T 7, TSH, LIPID, CMP #### [facility] [address] [address] [address] Demetri Leahy PROF 14(COMP METB)on 023 Albumin [Mass/Vol] 3.8 g/dL Normal 3.4-5.0 [facility] Comment on above: Performed By: #### T 7, TSH, LIPID, CMP #### [facility] [address] [address] [address] Demetri Leahy Albumin/Globulin [Mass ratio] 1.2 {ratio} Normal [facility] Comment on above: Performed By: #### T 7, TSH, LIPID, CMP #### [facility] [address] [address] [address] Demetri Leahy ALP [Catalytic activity/Vol] 50 U/L Normal 46-116 [facility] Comment on above: Performed By: #### T 7, TSH, LIPID, CMP #### [facility] [address] [address] [address] Demetri Leahy ALT [Catalytic activity/Vol] 53 U/L Normal 14-59 [facility] Comment on above: Performed By: #### T 7, TSH, LIPID, CMP #### [facility] [address] [place] [address] Dr. Demetri Leahy Anion gap [Moles/Vol] 14.1 mmol/L Normal [facility] Comment on above: Performed By: #### T 7, TSH, LIPID, CMP #### [facility] [address] [place] [address] Dr. Demetri Leahy AST [Catalytic activity/Vol] 36 U/L Normal 15-37 [facility] Comment on above: Performed By: #### T 7, TSH, LIPID, CMP #### [facility] [address] [place] [address] Dr. Demetri Leahy Bilirubin [Mass/Vol] 0.4 mg/dL Normal 0.2-1.0 [facility] Comment on above: Performed By: #### T 7, TSH, LIPID, CMP #### [facility] [address] [place] [address] Dr. Demetri Leahy Calcium [Mass/Vol] 9.0 mg/dL Normal 8.5-10.1 [facility] Comment on above: Performed By: #### T 7, TSH, LIPID, CMP #### [facility] [address] [place] [address] Dr. Demetri Leahy Chloride [Moles/Vol] 109 mmol/L Critically high 98-107 [facility] Comment on above: Performed By: #### T 7, TSH, LIPID, CMP #### [facility] [address] [place] [address] Dr. Demetri Leahy CO2 [Moles/Vol] 28.0 mmol/L Normal 21.0-32.0 [facility] Comment on above: Performed By: #### T 7, TSH, LIPID, CMP #### [facility] [address] [place] [address] Dr. Demetri Leahy Creatinine [Mass/Vol] 0.79 mg/dL Normal 0.55-1.02 [facility] Comment on above: Performed By: #### T 7, TSH, LIPID, CMP #### [facility] [address] [address] [address] Demetri Leahy EGFR-AF MALAWIAN >60 Normal >=60 [facility] Comment on above: Performed By: #### T 7, TSH, LIPID, CMP #### [facility] [address] [address] [address] Demetri Leahy EGFR-NON AF MALAWIAN >60 Normal >=60 [facility] Comment on above: Performed By: #### T 7, TSH, LIPID, CMP #### [facility] [address] [place] [address] Dr. Demetri Leahy Globulin (S) [Mass/Vol] 3.3 g/dL Normal [facility] Comment on above: Performed By: #### T 7, TSH, LIPID, CMP #### [facility] [address] [place] [address] Dr. Demetri Leahy Glucose [Mass/Vol] 86 mg/dL Normal 74-106 [facility] Comment on above: Performed By: #### T 7, TSH, LIPID, CMP #### [facility] [address] [place] [address] Dr. Demetri Leahy Potassium [Moles/Vol] 4.1 mmol/L Normal 3.5-5.1 [facility] Comment on above: Performed By: #### T 7, TSH, LIPID, CMP #### [facility] [address] [place] [address] Dr. Demetri Leahy Protein [Mass/Vol] 7.1 g/dL Normal 6.4-8.2 [facility] Comment on above: Performed By: #### T 7, TSH, LIPID, CMP #### [facility] [address] [place] [address] Dr. Demetri Leahy Sodium [Moles/Vol] 147 mmol/L Critically high 136-145 [facility] Comment on above: Performed By: #### T 7, TSH, LIPID, CMP #### [facility] [address] [address] [address] Demetri Leahy Urea nitrogen [Mass/Vol] 30.0 mg/dL Critically high 7.0-18.0 [facility] Comment on above: Performed By: #### T 7, TSH, LIPID, CMP #### [facility] [address] [address] [address] Demetri Leahy Urea nitrogen/Creatini ne [Mass ratio] 38.0 mg/mg Normal [facility] Comment on above: Performed By: #### T 7, TSH, LIPID, CMP #### [facility] [address] [address] [address] Demetri Leahy Quick Strepon 01-16-2023 S. pyogenes Org specific cx Ql (Throat) Negative [facility] Other [employer] Strep [facility] Other TSHon 01-16-2023 TSH 1.389 uIU/mL Normal 0.358-3.740 [facility] Comment on above: Performed By: #### T 7, TSH, LIPID, CMP #### [facility] [address] [address] [address] Demetri Leahy COVID/FLU RT-PCRon 2 SARS-CoV-2 (COVID-19) RNA KARTHIK+probe Ql (Unsp spec) Negative [facility] Other COVID/FLU RT-PCR Negative [employer] Other Quick Strepon 09-04-2022 S. pyogenes Org specific cx Ql (Throat) Negative [facility] Other Quick Strep [facility] Other COVID/FLU RT-PCRon 2 SARS-CoV-2 (COVID-19) RNA KARTHIK+probe Ql (Unsp spec) Negative [facility] Other COVID/FLU RT-PCR Negative [employer] Other Quick Strepon 08-27-2022 S. pyogenes Org specific cx Ql (Throat) Negative [facility] Other Quick Strep [facility] [employer] Other PROF CHEM 8 (BAS METB)on Anion gap [Moles/Vol] 13.6 mmol/L Normal [facility] Comment on above: Performed By: #### B MP #### [facility] [address] [address] [address] Demetri Leahy Calcium [Mass/Vol] 9.0 mg/dL Normal 8.5-10.1 [facility] Comment on above: Performed By: #### B MP #### [facility] [address] [place] [address] Dr. Demetri Leahy Chloride [Moles/Vol] 105 mmol/L Normal 98-107 [facility] Comment on above: Performed By: #### B MP #### [facility] [address] [address] [address] Demetri Leahy CO2 [Moles/Vol] 26.9 mmol/L Normal 21.0-32.0 [facility] Comment on above: Performed By: #### B MP #### [facility] [address] [address] [address] Demetri Leahy Creatinine [Mass/Vol] 1.04 mg/dL Critically high 0.55-1.02 [facility] Comment on above: Performed By: #### B MP #### [facility] [address] [address] [address] Demetri Leahy EGFR-AF MALAWIAN >60 Normal >=60 [facility] Comment on above: Performed By: #### B MP #### [facility] [address] [address] [address] Demetri Leahy EGFR-NON AF MALAWIAN 54 mL/min/1.73m2 Critically low >=60 [facility] Comment on above: Performed By: #### B MP #### [facility] [address] [place] [address] Dr. Demetri Leahy Glucose [Mass/Vol] 99 mg/dL Normal 74-106 [facility] Comment on above: Performed By: #### B MP #### [facility] [address] [address] [address] Demetri Leahy Potassium [Moles/Vol] 4.5 mmol/L Normal 3.5-5.1 [facility] Comment on above: Performed By: #### B MP #### [facility] [address] [address] [address] Demetri Leahy Sodium [Moles/Vol] 141 mmol/L Normal 136-145 [facility] Comment on above: Performed By: #### B MP #### [facility] [address] [address] [address] Demetri Leahy Urea nitrogen [Mass/Vol] 44.0 mg/dL Critically high 7.0-18.0 [facility] Comment on above: Performed By: #### B MP #### [facility] [address] [address] [address] Demetri Leahy Urea nitrogen/Creatini ne [Mass ratio] 42.3 mg/mg Normal [facility] Comment on above: Performed By: #### B MP #### [facility] [address] [address] [address] Demetri Leahy PROF CHEM 8 (BAS METB)on Anion gap [Moles/Vol] 10.3 mmol/L Normal [facility] Comment on above: Performed By: #### B MP #### [facility] [address] [address] [address] Demetri Leahy Calcium [Mass/Vol] 8.6 mg/dL Normal 8.5-10.1 [facility] Comment on above: Performed By: #### B MP #### [facility] [address] [address] [address] Demetri Leahy Chloride [Moles/Vol] 107 mmol/L Normal 98-107 [facility] Comment on above: Performed By: #### B MP #### [facility] [address] [address] [address] Demetri Leahy CO2 [Moles/Vol] 29.0 mmol/L Normal 21.0-32.0 [facility] Comment on above: Performed By: #### B MP #### [facility] [address] [address] [address] Demetri Leahy Creatinine [Mass/Vol] 1.42 mg/dL Critically high 0.55-1.02 [facility] Comment on above: Performed By: #### B MP #### [facility] [address] [address] [address] Demetri Leahy EGFR-AF MALAWIAN 46 mL/min/1.73m2 Critically low >=60 [facility] Comment on above: Performed By: #### B MP #### [facility] [address] [address] [address] Demetri Leahy EGFR-NON AF MALAWIAN 38 mL/min/1.73m2 Critically low >=60 [facility] Comment on above: Performed By: #### B MP #### [facility] [address] [address] [address] Demetri Leahy Glucose [Mass/Vol] 91 mg/dL Normal 74-106 [facility] Comment on above: Performed By: #### B MP #### [facility] [address] [address] [address] Demetri Leahy Potassium [Moles/Vol] 5.3 mmol/L Critically high 3.5-5.1 [facility] Comment on above: Performed By: #### B MP #### [facility] [address] [address] [address] Demetri Leahy Sodium [Moles/Vol] 141 mmol/L Normal 136-145 [facility] Comment on above: Performed By: #### B MP #### [facility] [address] [address] [address] Demetri Leahy Urea nitrogen [Mass/Vol] 48.0 mg/dL Critically high 7.0-18.0 [facility] Comment on above: Performed By: #### B MP #### [facility] [address] [address] [address] Demetri Leahy Urea nitrogen/Creatini ne [Mass ratio] 33.8 mg/mg Normal [facility] Comment on above: Performed By: #### B #### [facility] [address] [address] [address] Demetri Leahy ELBOW COMPLETE MIN. 3 VIE WSon 07-10-2021 BN ELBOW COMPLETE MIN. 3 VIEWS Patient Name: PALLAVI LUJAN STUDY: ELBOW COMPLETE MIN 3 VIEWS Left INDICATION: L elbow trauma. COMPARISON: None ACCESSION NUMBER(S): [id number] ORDERING CLINICIAN: JACQUELINE ROBLES FINDINGS: Heterotopic ossification adjacent to the medial epicondyle of the distal humerus suggesting either chronic epicondylitis or remote injury. No acute fracture dislocation. IMPRESSION: Heterotopic ossification adjacent to the medial epicondyle of the distal humerus suggesting either chronic epicondylitis or remote injury. Electronically signed by: DOLORES PRICE MD Normal [facility] BN KNEE; COMPLT, 4 OR MORE V IEWSon 07-10-2021 BN KNEE; COMPLT, 4 OR MORE VIEWS Patient Name: PALLAVI LUJAN STUDY: KNEE; COMPLT, 4 OR MORE VIEWS INDICATION: knee injury after fall. COMPARISON: None ACCESSION NUMBER(S): [id number] ORDERING CLINICIAN: ADELSO LUTHER FINDINGS: Mild osteoarthritis right knee with small posterior loose body. Remote posttraumatic changes from prior MCL injury with heterotopic ossification. No acute fracture or osseous abnormality otherwise. IMPRESSION: Mild osteoarthritis right knee with small posterior loose body. Remote posttraumatic changes from prior MCL injury with heterotopic ossification. Electronically signed by: DOLORES PRICE MD Normal [facility] NR CT C-SPINE WO CONTRASTon 07-10-[address] C-SPINE WO CONTRAST Patient Name: PALLAVI LUJAN STUDY: CT HEAD WO CONTRAST; CT C-SPINE WO CONTRAST; 07/10/2021 6:48 pm INDICATION: intox, head trauma, Lie Flat: Yes; fall at [employer] game, neck pain, Lie Flat: Yes COMPARISON: None. ACCESSION NUMBER(S): [id number]; [id number] ORDERING CLINICIAN: JACQUELINE ROBLES; ADELSO LUTHER TECHNIQUE: [...] as stated. This study was interpreted at [place], [place]. Electronically signed by: DO Omari REED [facility] NR CT HEAD WO CONTRASTon NR CT HEAD WO CONTRAST Patient Name: PALLAVI LUJAN STUDY: CT HEAD WO CONTRAST; CT C-SPINE WO CONTRAST; 07/10/2021 6:48 pm INDICATION: intox, head trauma, Lie Flat: Yes; fall at [employer] game, neck pain, Lie Flat: Yes COMPARISON: None. ACCESSION NUMBER(S): [id number]; [id number] ORDERING CLINICIAN: JACQUELINE ROBLES; ADELSO LUTHER TECHNIQUE: [...] as stated. This study was interpreted at [place], [place]. Electronically signed by: ANDRIY PERKINS, Normal [facility] Provider Note - ED v3on - Provider [...] without assoc (more content not included)... Normal [facility] Risk Screen - Adult [facility] yon 07-10-2021 Risk Screen - Adult Emergency Preferred Language: Preferred Language: Preferred Language for Discussing Health Care (patient/designee)Azerbaijani Advanced Directives: Advance Directive/DNRno Advance Directive Information [...] an injured patient at a Trauma Center ([facility]/[place]): no Electronic Signatures: Uzma Menendez (CONSUELO) (Signed 10-Jul-2021 18:54) Authored: Preferred Language, Advanced Directives, Family Violence Adult, Learning Assessment (Patient), Learning Assessment (Other Learner), Pressure Injury/TB/Substance, Pressure Injury, CAGE Last Updated: 10-Jul-2021 18:54 by Uzma Menendez (CONSUELO) References: 1. Data Referenced From Provider Note - ED v3 10-Jul-2021 17:29 Normal [facility] Triage - EDon 07-10-2021 Triage - ED [...] BMI (kg/m2): 34.485 Calculated BSA (m2) 2.08 [place] Coma Scale: Best Eye Response: (E4) spontaneous [...] 10-Jul-2021 17:15 by Lazarus Gupta (CONSUELO) Normal [facility] Cardiovascular Lab Reporton 09-22-2020 Cardiovascular Lab Report [facility] Patient Name: Pallavi Lujan [facility] MR #: [id number] Physician: Patrice Ochoa, Department of M.D. Medicine Service Date: 09/21/2020 Division of Birthdate: 1965 Cardiology Room #: [facility] Cardiovascular Services [place] [address] Cardiovascular Laboratory Report FINAL IMPRESSIONS: 1. Mild [...] right internal jugular vein was obtained. A 6-Nepalese 11 cm sheath was inserted without difficulty. [...] the right radial artery was obtained. A 6-Nepalese glide sheath was inserted without difficulty. Bilateral [...] Ochoa M.D. Date Trans: 09/22/2020 02:14 A/elma ARELLANO_JN:[id number] cc: Winston Crane M.D. [place] [id number] [facility] [place] [phone] [facility] Alfonso 02-01-2020 CNPN Telephone (COVHLD) PALLAVI LUJAN ([id number]) 1965 F Date Time Provider Department 02/01/20 ARLETTE ABRAHAM) NOELLE During your visit today, we recorded the following information about you: Arlette Abraham PA-C, PA 02/01/2020 10:03 AM Signed Brant, Thank you for the referral, this patient meets criteria for COVID-19 testing in accordance with criteria found on the [facility] Intranet COVID19 Toolkit as of February 01, 2020 10:02 AM Please inform the patient that the test has been ordered, and that the [facility] Scheduling Department will call [...] Fully Assessed Reason for Visit: Covid-19 Hotline [6160] Primary Visit Diagnosis:Suspected Covid-19 Virus Infection [R68.89] Order(s):2019 CORONAVIRUS [SQCOVID] Order #: [id number] FUTURE MYCHART COVID-19 HOME MONITORING [6354078] Order #: [id number] Prescriptions as of 02/01/2020 Sig: ATORVASTATIN 80 [...] [F43.9] More... Anxiety [F41.9] BMI 40.0-44.9, adult ([facility]) [Z68.41] Encounter Status:Closed by ARLETTE ABRAHAM on 02/01/20 Normal [facility] Telephone (BLAZE) PALLAVI LUJAN ([id number]) 1965 F Date Time Provider Department 02/01/20 DEBBIE COSTA (RN) BLAZE During your visit today, we recorded the following information about you: Debbie Costa RN, RN 02/01/2020 9:32 AM Signed Telephone Nurse Triage for Flu-like symptoms Patient evaluated by telephone nursing triage.patient seen at [facility] last nite.-Dx Bronchitis. zpak started and [...] acetaminophen overdose can hurt the liver. ? [employer], the company that makes Tylenol, has different dosage instructions for Tylenol in [place] and the [place]. In [place], the maximum recommended dose per day is 4,000 mg or twelve (12) Regular-Strength (325 mg) pills. In the [place], [employer] recommends a maximum dose of ten (10) Regular-Strength (325 mg) pills. ? Before taking any medicine, read all the instructions on the package. PATIENT INSTRUCTIONS: At present, these are our recommendations regarding the coronavirus (COVID-19) outbreak: - Wash your hands regularly for at least 20 seconds with soap and water, especially before eating. - If soap/water are unavailable, use a hand typing teacher with at least 60% alcohol - Avoid [...] large groups of people (sporting events, concerts, [employer]a, etc). - Avoid unnecessary domestic and international travel, including travel through large international airports. - If traveling, wipe down your airplane seat (and tray) with a disinfecting wipe. If you have a fever, cough or shortness of breath, or are otherwise concerned you have COVID-19, we ask that you do not come to any [facility] facility without calling your primary care physician or speaking to a provider using a virtual visit using [facility] A[employer] Care? Online. You will be evaluated to [...] can be found on the CDC and [facility] web sites: https://www.cdc.gov/coronavi gustabo/2019-nCoV/index.html ? 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 [facility] Comment on above: Result Comment: This test was developed and its performance characteristics determined by [facility]'s Adelso Carrasquillo [facility] Pathology and Laboratory Medicine [place]. This test has been authorized by FDA under an Emergency Use Authorization (EUA). This test has been validated in accordance with the FDA's Guidance Document Policy for Diagnostics Testing in Laboratories Certified to Perform High Complexity Testing under CLIA prior to Emergency use Authorization for Coronavirus Disease 2019 during the Public Health Emergency issued on December 20, 2019. 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 Author Type: Physician Pipeline Gang Supervisor Type: Progress Notes Filed: 02/01/2020 12:52 PM Note Text: Telemedicine Visit - Distance Health Virtual Visit Note This Team Access Model visit is a virtual encounter. It required patient-provider interaction for the medical decision making as documented below. Patient seen on [employer] platform. Location of patient: [place] History of Present Illness Pallavi Lujan is [...] in providing you the best care. [facility] PROGRESS HNO ID: [id number] Author: Cynthia Boogie) Alee Service: ? Author Type: Physician Pipeline Gang Supervisor Type: Progress Notes Filed: 02/01/2020 9:56 AM Note Text: Telemedicine Visit - Distance Health Telephone Visit Note This Team Access Model visit is a virtual encounter. It required patient-provider interaction for the medical decision making as documented below. The patient is a [facility] employee: No Location of patient: [place] History of Present Illness Pallavi Lujan is a 54 year old female who presents with 1 days of symptoms that are stable. Pt reports that yesterday she all of a sudden felt unwell. Went to ER in [place] last night and reports that tested negative [...] fail to improve Cynthia Vickers PA-C Normal [facility] CNOVon 05-26-2019 CNOV Office Visit (GSPSMN ) PALLAVI LUJAN ([id number]) 1965 F Date Time Provider Department 05/26/19 1:00 PM AMELIE ROBLEDO [facility] During your visit today, we recorded the following information about you: Amelie Robledo, PHD 05/26/2019 2:28 PM Signed [facility] BARIATRIC SURGERY BEHAVIORAL HEALTH EVALUATION DATE OF SERVICE: 05/26/2019 TIME OF SERVICE: 1:10 PM - 2:10 PM COST CENTER: [facility] CPT CODE: 72190 Psychiatric diagnostic evaluation BILLING CODE: ENDO PSYL [...] strategies have been effective. The patient notes hoahaoism practice is: Caodaism; will think about whether she'd take blood [...] AFTER COMPLETION OF GROUP (To schedule, call [phone]) *Continue to avoid alcohol in preparation for [...] emotional and behavioral readiness (To schedule call [phone]) *Read Preparing for Weight Loss Surgery: Workbook (Treatments That Work) by Kris Bazzi, Reji Ndiaye, and Monse Alcantar ([employer], 2006) *continue CPAP Adherence *implement [...] by AMELIE ROBLEDO PHD on 05/26/19 Normal [facility] CNOV Office Visit (GSPSMN ) PALLAVI LUJAN ([id number]) 1965 F Date Time Provider Department 05/26/19 12:00 PM PSYL TESTING MAIN GSPSMN During your visit today, we recorded the following information about you: Amelie Robledo, PHD 05/26/2019 3:52 PM Signed [facility] PSYCHOLOGICAL TEST REPORT PATIENT: Pallavi Lujan ( ) TEST ADMINISTERED: [place] Multiphasic Personality Inventory-2 Restructured Form (MMPI2-RF) Binge Eating Questionnaire (BEQ) DATE: ADMINISTERED: May 26, 2019 DATE REVIEWED: May 26, 2019 TIME REVIEWED (start/stop): 3:17 PM - 3:55 PM BILL Robledo, #: [id number] computer administration of test. 38861 (1 unit) The patient completed the MMPI2-RF in the Bariatric and Metabolic [place] and was proctored by trained personnel. The underwriter mortgage loan was available for help with the testing [...] AFTER COMPLETION OF GROUP (To schedule, call [phone]) *Continue to avoid alcohol in preparation for [...] emotional and behavioral readiness (To schedule call [phone]) *Read Preparing for Weight Loss Surgery: Workbook (Treatments That Work) by Kris Bazzi, Reji Ndiaye, and Monse Alcantar ([employer], 2006) *continue CPAP Adherence *implement [...] patient can request a written copy through [employer]. This report is not intended [...] Status:Closed by AMELIE ROBLEDO PHD on 05/26/19 [facility] PROGRESSon 05-26-2019 PROGRESS HNO ID: [id number] Author: Amelie Robledo Service: ? Author Type: Physician Type: Progress Notes Filed: 05/26/2019 3:52 PM Note Text: [facility] PSYCHOLOGICAL TEST REPORT PATIENT: Pallavi Lujan ( ) TEST ADMINISTERED: [place] Multiphasic Personality Inventory-2 Restructured Form (MMPI2-RF) Binge Eating Questionnaire (BEQ) DATE: ADMINISTERED: May 26, 2019 DATE REVIEWED: May 26, 2019 TIME REVIEWED (start/stop): 3:17 PM - 3:55 PM BILL / Venkat, [facility]#: 82059.59 computer administration of test. 06402 (1 unit) The patient completed the MMPI2-RF in the [facility]ariat[facility] and Met[facility] [place] and was proctored by trained personnel. The underwriter mortgage loan was available for help with the testing [...] AFTER COMPLETION OF GROUP (To schedule, call [phone]) *Continue to avoid alcohol in preparation for [...] emotional and behavioral readiness (To schedule call [phone]) *Read Preparing for Weight Loss Surgery: Workbook (Treatments That Work) by Kris Bazzi, Reji Ndiaye, and Monse Alcantar ([employer], 2006) *continue CPAP Adherence *implement [...] patient can request a written copy through [employer]. This report is not intended for forensic purposes. Amelie Robledo, Ph.D. Psychologist Normal [facility] PROGRESS HNO ID: [id number] Author: Amelie Robledo Service: ? Author Type: Physician Type: Progress Notes Filed: 05/26/2019 2:28 PM Note Text: [facility] BARIATRIC SURGERY BEHAVIORAL HEALTH EVALUATION DATE OF SERVICE: 05/26/2019 TIME OF SERVICE: 1:10 PM - 2:10 PM COST CENTER: [facility] CPT CODE: 43339 Psychiatric diagnostic evaluation BILLING CODE: ENDO PSYL [...] strategies have been effective. The patient notes hoahaoism practice is: Caodaism; will think about whether she'd take blood [...] AFTER COMPLETION OF GROUP (To schedule, call [phone]) *Continue to avoid alcohol in preparation for [...] emotional and behavioral readiness (To schedule call [phone]) *Read Preparing for Weight Loss Surgery: Workbook (Treatments That Work) by Kris Bazzi, Reji Ndiaye, and Monse Alcantar ([employer], 2006) *continue CPAP Adherence *implement [...] Coping/Stressors:Fair 9. Overall Psychological Impression: Fair Normal [facility] CNCNPATEDon 05-19-2019 CNCNPATED Education (BMIREJ) PALLAVI LUJAN ([id number]) 1965 F Date Time Provider Department 05/19/19 [...] guidelines for weight loss surgery and has [employer] Insurance therefore is required to complete 6 [...] May 19, 2019 TIME: 10:06 AM PAGER: [phone] Primary Visit Diagnosis:Class 3 severe obesity due [...] Encounter Status:Closed by VIKAS SANTOS on 05/19/19 [facility] PROGRESSon 05-19-2019 PROGRESS HNO ID: [id number] Author: Vikas Santos Service: ? Author Type: [...] guidelines for weight loss surgery and [facility] therefore is required to complete 6 [...] May 19, 2019 TIME: 10:06 AM PAGER: [phone] Normal [facility] CNCNPATEDon 03-14-2019 CNCNPATED Education (BMIREJ) PALLAVI LUJAN ([id number]) 1965 F Date Time Provider Department 03/14/19 2:00 PM VIKAS SANTOS (RD) BMIREJ Reason for Visit: Reassessment [674] Patient Education [91] Progress Notes: Vikas Santos RD 03/14/2019 5:08 PM Signed [facility] AMBULATORY PATIENT EDUCATION NOTE-Established Shared Nutrition Group [...] do you eat deep fried foods (chips, Nepalese fries, fried meats, etc) Never How often [...] guidelines for weight loss surgery and has [employer] Insurance therefore is required to complete 6 [...] March 14, 2019 TIME: 4:55 PM PAGER: [phone] Primary Visit Diagnosis:Class 3 severe obesity due [...] Status:Closed by VIKAS SANTOS on 03/14/19 Normal [facility] PROGRESSon 03-14-2019 PROGRESS HNO ID: [id number] Author: Vikas Santos Service: ? Author Type: Registered Dietitian Type: Progress Notes Filed: 03/14/2019 5:08 PM Note Text: [facility] AMBULATORY PATIENT EDUCATION NOTE-Established Shared Nutrition Group [...] do you eat deep fried foods (chips, Nepalese fries, fried meats, etc) Never How often [...] guidelines for weight loss surgery and has [employer] Insurance therefore is required to complete 6 [...] March 14, 2019 TIME: 4:55 PM PAGER: [phone] Normal [facility] CNCNPATEDon 02-17-2019 CNCNPATED Education (BMIREJ) PALLAVI LUJAN ([id number]) 1965 F Date Time Provider Department 02/17/19 [...] skip meals. - - met 2.? Begin 4807-4623 calorie partial liquid diet (refer to handout) [...] guidelines for weight loss surgery and has [employer] Insurance therefore is required to complete 6 [...] April appointment today prior to leaving at [facility] if preferred location Referred/Supervised by: Grant MYERS Billing Type: Re-assess/15 min 2 units SIGNATURE: Vikas Santos RD PATIENT NAME: Pallavi Lujan DATE: February 17, 2019 TIME: 8:38 AM PAGER: [phone] Primary Visit Diagnosis:Class 3 severe obesity due [...] Status:Closed by VIKAS SANTOS on 02/17/19 Normal [facility] PROGRESSon 02-17-2019 PROGRESS HNO ID: [id number] Author: Vikas Santos Service: ? Author Type: Registered Dietitian Type: Progress Notes Filed: 02/17/2019 11:26 AM Note Text: Nutritional Therapy Pre op weight loss surgery Sleeve Gastrectomy Re-Assessment PROGRESS: Nutrition Intervention (date of last encounter 01/17/2019) Read Your Guide to Surgery before next visit - - met 1.? Do not skip meals. - - met 2.? Begin 6447-1693 calorie partial liquid diet (refer to handout) [...] guidelines for weight loss surgery and has [employer] Insurance therefore is required to complete 6 [...] April appointment today prior to leaving at [facility] if preferred location Referred/Supervised by: Neo/Mark MYERS Billing Type: Re-assess/15 min 2 units SIGNATURE: Vikas Santos RD PATIENT NAME: Pallavi Lujan DATE: February 17, 2019 TIME: 8:38 AM PAGER: [phone] Normal [facility] CNOVon 02-14-2019 [facility] Office Visit (BMIREJ ) PALLAVI LUJAN ([id number]) 1965 F Date Time Provider Department 02/14/19 [...] chronic medical conditions associated with obesity include [place] diabetes, hypertension taking Norvasc, lisinopril, metoprolol and [...] goal weight prior to liquid fast: 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 Surgically Cleared with completion of the below: [...] Yuni Flores MD Referring Provider: YUNI FLORES) [[id number]] Allergies As of Date: 02/14/2019 (No Known Allergies) Date Reviewed: 02/14/2019 Reviewed by: Ernestine Spaulding - Fully Assessed Reason for Visit: New Patient [172] Primary Visit Diagnosis:Morbid obesity (HCC) [E66.01] Other Visit Diagnosis:Gastroesophageal reflux disease, esophagitis presence not specified [K21.9] Order(s):EGD [9712770] Order #: [id number] FUTURE Prescriptions as of 02/14/2019 Sig: ATORVASTATIN [...] Encounter Status:Closed by YUNI FLORES on 02/14/19 [facility] PROGRESSon 02-14-2019 PROGRESS HNO ID: [id number] Author: Yuni Valverde) Neo Service: ? 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 Other: . IMPRESSION: Mild bibasilar atelectasis. Contract Serviceman: PSCB Transcribe Date/Time: Dec 19 2018 2:47P Dictated by : RUTH ANN OWENS MD This examination was interpreted and the report reviewed and electronically signed by: RUTH ANN OWENS MD on Dec 19 2018 2:48PM EST [id number] [facility] Vital Signs Date Time Vital Sign Value Performing Clinician Facility 02-14-2023 15:47-0400 Blood Pressure Location David MACK[facility] [place] 02-14-2023 15:47-0400 Diastolic blood pressure 82 mm[Hg] David MACKL [facility] [place] 02-14-2023 15:47-0400 Heart rate 82 /min David MACKL [facility] [place] 02-14-2023 15:47-0400 Respiratory rate 16 /min David MACKL [facility] [place] 02-14-2023 15:47-0400 Systolic blood pressure 132 mm[Hg] David MACKL [facility] [place] 02-04-2023 13:50-0400 Body height 165.1 cm Kaitlin Lani Other [facility] Other 02-04-2023 13:50-0400 Body mass index (BMI) [Ratio] 35.44 kg/m2 Kaitlin Lani Other [facility] Other 02-04-2023 13:50-0400 Body temperature 97.1 [degF] Kaitlin Contrerasmond Other [facility] Other 02-04-2023 13:50-0400 Body weight 96.62 kg Kaitlin Lani Other [facility] Other 02-04-2023 13:50-0400 Diastolic blood pressure 71 mm[Hg] Kaitlin Lani Other [facility] Other 02-04-2023 13:50-0400 Respiratory rate 18 /min Kaitlin Lani Other [facility] Other 02-04-2023 13:50-0400 SaO2% (BldA) [Mass fraction] 96 % Kaitlin Contrerasmond Other [facility] Other 02-04-2023 13:50-0400 Systolic blood pressure 110 mm[Hg] Kaitlin Contrerasmond Other [facility] Other 01-16-2023 16:45-0400 Body height 165.1 cm Yolie Cross Other [facility] Other 01-16-2023 16:45-0400 Body mass index (BMI) [Ratio] 36.27 kg/m2 Yolie Cross Other [facility] Other 01-16-2023 16:45-0400 Body temperature 97.3 [degF] Yolie Cross Other [facility] Other 01-16-2023 16:45-0400 Body weight 98.88 kg Yolie Cross Other [facility] Other 01-16-2023 16:45-0400 Respiratory rate 18 /min Yolie Cross Other [facility] Other 01-16-2023 16:45-0400 SaO2% (BldA) [Mass fraction] 97 % Yolie Cross Other [facility] Other 09-04-2022 13:50-0500 Body height 165.1 cm Kaitlin Contrerasmond Other [facility] Other 09-04-2022 13:50-0500 Body mass index (BMI) [Ratio] 35.94 kg/m2 Kaitlin Lani Other [facility] Other 09-04-2022 13:50-0500 Body temperature 97.1 [degF] Kaitlin Contrerasmond Other [facility] Other 09-04-2022 13:50-0500 Body weight 97.98 kg Kaitlin Contrerasmond Other [facility] Other 09-04-2022 13:50-0500 Diastolic blood pressure 75 mm[Hg] Kaitlin Lnai Other [facility] Other 09-04-2022 13:50-0500 Respiratory rate 18 /min Kaitlin Contrerasmond Other [facility] Other 09-04-2022 13:50-0500 SaO2% (BldA) [Mass fraction] 97 % Kaitlin Garibay Other [facility] Other 09-04-2022 13:50-0500 Systolic blood pressure 141 mm[Hg] Kaitlin Garibay Other [facility] Other 08-27-2022 10:35-0500 Body height 165.1 cm Yolie Tay Other [facility] Other 08-27-2022 10:35-0500 Body mass index (BMI) [Ratio] 36.07 kg/m2 Yolie Cross Other [facility] Other 08-27-2022 10:35-0500 Body temperature 97.6 [degF] Yolie Cross Other [facility] Other 08-27-2022 10:35-0500 Body weight 98.34 kg Yolie Cross Other [facility] Other 11-06-2022 10:35-0500 Diastolic blood pressure 81 mm[Hg] Yolie Cross Other [facility] Other 08-27-2022 10:35-0500 Respiratory rate 18 /min Yolie Cross Other [facility] Other 08-27-2022 10:35-0500 SaO2% (BldA) [Mass fraction] 98 % Yolie Cross Other [facility] Other 08-27-2022 10:35-0500 Systolic blood pressure 126 mm[Hg] Yolie Cross Other [facility] Other 08-18-2021 15:30-0400 Body height 165.1 cm Tai Olexa Other [facility] Other 08-18-2021 15:30-0400 Body mass index (BMI) [Ratio] 48.25 kg/m2 Tai Olexa Other [facility] Other 08-18-2021 15:30-0400 Body weight 131.54 kg Tai Olexa Other [facility] Other 07-10-2021 19:10-0400 Body height 165.1 cm Pcp Unknown [facility] 07-10-2021 19:10-0400 Body temperature 97.52 [degF] Pcp Unknown [facility] 07-10-2021 19:10-0400 Body weight 94 kg Pcp Unknown [facility] 07-10-2021 19:10-0400 Diastolic blood pressure 68 mm[Hg] Pcp Unknown [facility] 07-10-2021 19:10-0400 Heart rate 78 /min [facility] [facility] 07-10-2021 19:10-0400 Respiratory rate 16 /min Pcp Unknown [facility] 07-10-2021 19:10-0400 SaO2% (BldA) [Mass fraction] 96 % Pcp Unknown [facility] 07-10-2021 19:10 Systolic blood pressure 127 mm[Hg] Pcp Unknown [facility] Encounters Encounter Date Encounter Type Care Provider Facility Start: 01-16-2024 End: 01-16-2024 ambulatory PATRICE OCHOA [facility] Start: 04-25-2023 End: 04-26-2023 [facility] Start: 04-25-2023 End: 04-25-2023 Patient encounter procedure David R NILL General Surgery Nill/[facility] Start: 04-11-2023 End: 04-12-2023 ambulatory David R NILL Facility:[id number] Start: 03-14-[address] WINSTON CRANE . Facili ty:[facility] Start: 02-14-2023 End: 02-15-2023 ambulatory [facility] Start: 02-14-2023 End: 02-14-2023 Patient encounter procedure David R NILL General Surgery Nill/[facility] Start: 02-04-2023 End: 02-04-2023 ambulatory Kaitlin Garibay Other [facility] Other Start: 02-04-2023 Office outpatient vi sit 15 minutes Kaitlin Garibay [facility] Start: 01-25-2023 ambulatory David NILL Facility:[facility] Start: 01-19-2023 Encounter for genera l adult medical examination without abnormal findings DR WINSTON CRANE . [facility] Start: 01-19-2023 End: 01-19-2023 ambulatory LAUREEN DAVENPORT [facility] Start: 01-16-2023 Office outpatient vi sit 15 minutes Yolie Cross [facility] Start: 01-16-2023 End: 01-17-[address] WINSTON CRANE . [facility] Other Start: 01-16-2023 End: 01-17-2023 Encounter for general adult medical examination without abnormal findings DR WINSTON CRANE . Facility:[facility] Start: 09-04-2022 End: 09-04-2022 ambulatory Kaitlin Lani Other [facility] Other Start: 09-04-2022 Office outpatient vi sit 15 minutes Kaitlin Lani [facility] Start: 08-27-2022 End: 08-27-2022 ambulatory Yolie Cross Other [facility] Other Start: 08-27-2022 Office outpatient vi sit 25 minutes Yolie Tay [facility] Start: 07-05-2022 End: 07-06-[address] PATRICE OCHOA Facility:[facility] Start: 06-30-2022 End: 07-01-[address] WINSTON CRANE . Facility:[facility] Start: 11-01-2021 End: 11-01-2021 ambulatory Tai Olexa Other [facility] Other Start: 11-01-2021 Postop follow up vis it related to original px Tai Olexa [facility] Start: 10-17-2021 End: 10-17-2021 ambulatory Tai Olexa Other [facility] Other Start: 10-17-2021 Telephone encounter Tai Olexa [facility] Start: 09-21-2021 End: 09-21-2021 ambulatory Tai Olexa Other [facility] Other Start: 09-21-2021 Telephone encounter Tai Olexa [facility] Start: 08-18-2021 Encounter for other preprocedural examination Tai Olexa [facility] Start: 08-18-2021 Office outpatient ne w 45 minutes Tai Olexa [facility] Start: 07-10-2021 End: 07-10-2021 Emergency department patient visit Jacqueline Robles [facility] Adult ED Gold 04 Start: 12-19-2018 Encounter for other preprocedural examination [facility] Start: 12-19-2018 Patient encounter procedure [facility] Procedures Date Procedure Procedure Detail Performing Clinician Start: 04-11-2023 Colonoscopy David NILL Start: 04-11-2023 Esophagogastroduodenoscopy David NILL Start: 10-22-2020 Gastric sleeve David NILL Decompression of median nerve David NILL H/O: tubal ligation David NILL History of operative procedure on elbow David NILL Repair of meniscus David N ILL Immunizations Immunization Date Immunization Notes Care Provider [facility] 02-04-2023 tetanus toxoid, reduced diphtheria toxoid, and acellular pertussis vaccine, adsorbed Kaitlin Lani Other [facility] Other 07-10-2021 tetanus toxoid, reduced diphtheria toxoid, and acellular pertussis vaccine, adsorbed Pcp Unknown [facility] 05-21-2021 SARS-CoV-2 (COVID-19 ) mRNA-1273 vaccine David NILL [facility] 04-19-2021 SARS-CoV-2 (COVID-19 ) mRNA-1273 vaccine David NILL [facility] NEGATED: Highlighted row has not occurred!02-14-2023 influenza virus vaccine, unspecified formulation David NILL [facility] Payers Date Payer Category Payer Unknown [id number] 2.16.84 [id number] 1965 Unknown [id number] 2.16.84 [id number] 1965 Unknown [id number] 2.16.84 [id number] 1965 Unknown [id number] 2.16.84 [id number] 1965 Unknown [id number] 1965 Unknown [id number] 1965 Unknown [id number] 1965 Unknown [id number] 1960 Medicaid [id number] 2. [id number] 1960 Unknown [id number] 2.1 [id number] Unknown [employer] Social History Date Type Detail Facility [facility] Tobacco smoking consumption unknown [facility] Sex Assigned At [facility] Start: 02-14-2023 Tobacco smoking status Ex-smoker (finding) [facility] Tobacco smoking status Never [facility] Functional Status Date Assessment Result Facility 02-14-2023 Functional Status N/A [facility] Clinical Notes 08-18-2021 to 01-16-2024 Note Date & Type Note Facility 01-16-2024 Note [facility] Note Chief Complaint: Patient [...] and an angiotensin-c (more content not included)... [facility] 02-15-2023 Note Chief Complaint consultation for anemia [...] than 30 d (more content not included)... [facility] Comment on above: Result Comment: Elec [...] no improvement in 2 to 3 days [facility] Other 03-31-2023 NoteHypertension is currently well controlled- 124/76 Continue all meds- lisinopril, lasix, coreg prnUnHolzer [facility]03-31-2023 NoteNYHC II Continue GDMT- Lasix 20 mg daily- Diuretic therapy Monitor daily weights, I&O, fluid restriction 1.5-2L/day, renal function and electrolytesUnHolzer Health System03-31-2023 NoteCoronary artery disease is Without any concerning symptoms Continue goal-directed medical therapy including aspirin, Lipitor, carvedilol, lisinopril Continue heart healthy diet, regular exerciseUnHolzer Health System 01-19-2023 NoteUTP CARDIOLOGY PROGRESS NOTE HPI: Pallavi [...] diet, regular exercise Diastolic heart failure (CMS/HCC) [facility] II (more content not included)...[facility]03-28-2023 Evaluation note* Encounter Date Diagnosis Assessment Notes [...] treatment plan. Patient left in stable condition. [facility] Other 11-14-2022 Evaluation note* Encounter Date Diagnosis [...] no improvement in 2 to 3 days. [facility] Other 11-06-2022 Evaluation note* Encounter Date Diagnosis [...] and rest, Tylenol/Motrin as directed, rx of [place] and Flonase, cool mist humidifier, throat lozenges. [...] condition Aug, Sore throat (ICD-10 - J02.9) [facility] Other 01-11-2022 Evaluation note* Encounter Date Diagnosis [...] remova l of sutures (ICD-10 - Z48.02) [facility] Other 12-27-2021 Evaluation note* Encounter Date Diagnosis Assessment Notes Treatment Notes Treatment Clinical Notes Sep, Other specified postprocedural states (ICD-10 - Z98.890) [facility] Other 10-28-2021 Evaluation note* Encounter Date Diagnosis [...] outcome. Jul, Pre-op exam (ICD-10 - Z01.818) [facility] Other Evaluation + Plan note No data available for this section [facility] Evaluation noteNo InformationNortReelGenie Other History general Narrative - Reported* Type Description Date Medical History Hypertension Medical History hypercholesterolemia Medical History urinary frequency Medical History acid reflux Medical History Arthritis Medical History pre diabetic Surgical History knee surgery 2010 Surgical History tubal ligation Surgical History ankle surgery Hospitalization History see above surgical [employer] Other History general Narrative - Reported* Type Description Date Medical History Hypertension Medical History hypercholesterolemia Medical History urinary frequency Medical History acid reflux Medical History Arthritis Medical History pre diabetic Surgical History knee surgery 2010 Surgical History tubal ligation Surgical History ankle surgery Surgical History gastric bypass Hospitalization History see above [employer] Other Hisfyid general Narrative - Reported* Type Description Date Medical History Hypertension Medical History hypercholesterolemia Medical History urinary frequency Medical History acid reflux Medical History Arthritis Medical History pre diabetic Surgical History knee surgery 2010 Surgical History tubal ligation Surgical History ankle surgery Surgical History gastric bypass Surgical History right elbow Surgical History carpal tunnel Hospitalization History see above surgical [employer] Other Hospital Discharge instructions No data available for this section [facility] Progress note No data available for this section [facility] Summary Purpose Family History No Family History [...] section and content) DATE CREATED AUTHOR 12/20/2018 [facility] DATE CREATED AUTHOR AUTHOR'S ORGANIZ ATION 02/04/2020 [facility] DATE CREATED AUTHOR AUTHOR'S ORGANIZ ATION 08/27/2021 [facility] DATE CREATED AUTHOR AUTHOR'S ORGANIZ ATION 08/29/2021 [facility] DATE CREATED AUTHOR AUTHOR'S ORGANIZ ATION 03/07/2023 [facility] DATE CREATED AUTHOR AUTHOR'S ORGANIZ ATION 04/26/2023 [facility] DATE CREATED AUTHOR AUTHOR'S ORGANIZ ATION 01/18/2024 [facility] <item> Privacy Markings (unrecogniz ed section and [...] Personnel Name: Winston Crane MD Address: Address: [address] [place] [address] Personnel Name: Winston Crane MD Address: Address: [address] [place] [address] FOR RECORDS PERTAINING TO PATIENTS WHO ARE [...] BE BASED ON THE PRIMARY CLINICAL RECORDS. [facility] [employer] [facility]. provides no warranty or guarantee of the accuracy or completeness of information in this document.
[2024-10-16 09:19] LABS: Bilirubin Urine NEGATIVE (NEGATIVE); Blood Urine NEGATIVE (NEGATIVE); Clarity Urine CLEAR (CLEAR); Color Urine LT. YELLOW (YELLOW); Glucose Urine UA NEGATIVE (NEGATIVE); Ketones Urine NEGATIVE (NEGATIVE); Leukocyte Esterase Urine NEGATIVE (NEGATIVE); Nitrite Urine NEGATIVE (NEGATIVE); Protein Urine NEGATIVE (NEG/TRACE); Urobilinogen Urine 0.2 EU/dL (0.2-1.0)
[2024-10-16 10:06] LABS: Bacteria Urine TRACE #/HPF (NONE SEEN); RBC Urine NONE SEEN #/HPF (0-2); WBC Urine NONE SEEN #/HPF (NONE SEEN)
[2024-10-16 10:07] LABS: Cast Seen? SEEN #/LPF (NONE SEEN); Crystals Seen? None Seen #/HPF (None Seen); Hyaline Casts Urine RARE; Mucus Urine TRACE (NONE SEEN); Squamous Epithelial Cell Urine RARE #/LPF (NONE/RARE); Urine Culture Indicated ALREADY ORDERED
[2024-10-17 14:43] LABS: BOX Test Reference Lab FIRELANDS; BOX Test Sent Out URINE
== END 2024-10-16 08:35 | disposition home or self-care (01) ==
LOC: LAB 08:34
PROVIDERS: PCP Family Medicine; Visit Provider Family Medicine
DX: R39.9 Unspecified symptoms and signs involving the genitourinary system (principal)
CPT/HCPCS: 36415; 81001; 87081; 87086

== ENCOUNTER 2024-11-20 12:56 | Outpatient (RCR) | payer OTHER, SELFPAY | END 2024-12-05 10:53 | disposition home or self-care (01) | LOC: OT 12:56 | PROVIDERS: PCP Family Medicine; Visit Provider Family Medicine | DX: G56.00 Carpal tunnel syndrome, unspecified upper limb (principal) | CPT/HCPCS: 97110; 97140; 97166; 97530 ==

== ENCOUNTER 2024-11-29 13:58 | Emergency (ER) | payer OTHER, SELFPAY ==
[2024-11-29 14:06] VITALS: BP 126/90; PULSE 85; TEMP 36.8; O2SAT 95; BMI 34.9
--- NOTE | 2024-11-29 14:18 | ECG_ITS ---
[facility] Test Date: 2024-11-29 Pat Name: KAMILA LUJAN Department: Room: - Gender: Female Nurse Navigator: : 1965 Requested By: WINSTON SOTELO Order Number: [id number] Reading MD: WINSTON SOTELO Measurements Intervals [place] Rate: 72 P: 67 NC: 168 QRS: 50 QRSD: 78 T: 45 QT: 376 QTc: 400 Interpretive Statements 1100 Sinus rhythm 9110 normal ECG Compared to ECG 12/06/2021 17:47:28 No significant changes Electronically Signed On 11-30-2024 11:07:00 EST by WINSTON SOTELO
--- NOTE | 2024-11-29 14:19 | XR_ITS ---
[facility] [place] [id number] Patient Name: KAMILA LUJAN MRN: [id number] date: 1965 Sex: F Assigned Patient Location: ER Current Patient Location: Accession/Order Number: [id number] Exam Date: 11/29/2024 14:32 Report Date: 11/29/2024 16:17 At the request of: TREY PASTOR Procedure: XR chest 1V EXAM: XR chest 1V , 11/29/2024 HISTORY: cough COMPARISON: Previous x-ray from 12/04/2021. TECHNIQUE: X-ray of the chest, portable upright AP view. FINDINGS: Borderline enlarged cardiac silhouette. Mild atherosclerotic calcification of the aortic arch. The lungs and costophrenic angles are clear. No focal consolidation or pulmonary edema. No acute osseous findings. XR/XR chest 1V IMPRESSION: Borderline enlarged cardiac silhouette. No focal consolidation or pulmonary edema. Electronically authenticated by: TIMMY GARCIA Date: 11/29/2024 16:17
[2024-11-29] MEDS: 0.9 % SODIUM CHLORIDE 1,000 ML 1000 ML IV (14:30)
[2024-11-29 14:34] LABS: Basophils Percent Auto 0.3 % (0.2-2.0); Eosinophils Percent Auto 0.6 % (0.9-7.0); Hematocrit 33.6 % (36.0-48.0); Immature Granulocytes Abs Auto 0.01 10^3/uL (0.00-0.03); Immature Granulocytes Pct Auto 0.3 % (0.0-0.5); Lymphocytes Absolute Auto 1.4 10^3/uL (1.2-3.8); Mean Corpuscular HGB Conc 32.7 g/dL (29.9-35.2); Mean Corpuscular Hemoglobin 32.4 pg (26.7-34.0); Mean Corpuscular Volume 99.1 fL (81.0-99.0); Mean Platelet Volume 9.4 fL (9.5-13.5); Monocytes Absolute Auto 0.4 10^3/uL (0.3-0.8); Monocytes Percent Auto 10.5 % (1.7-12.0); Neutrophils Absolute Auto 1.6 10^3/uL (1.4-6.5); Neutrophils Percent Auto 47.3 % (43.0-75.0); Platelet Count 151 10^3/uL (150-450); Red Blood Count 3.39 10^6/uL (4.20-5.40); Red Cell Distribution Width 13.1 % (11.0-15.0); White Blood Count 3.3 10^3/uL (4.0-11.0)
[2024-11-29 14:49] LABS: Alanine Aminotransferase 65 U/L (14-59); Albumin Globulin Ratio 0.9; Albumin Level 3.3 g/dL (3.4-5.0); Alkaline Phosphatase 53 U/L (46-116); Anion Gap 13.1; Aspartate Amino Transferase 66 U/L (15-37); BUN Creatinine Ratio 26.7; Bilirubin Total 0.3 mg/dL (0.2-1.0); Calcium 8.5 mg/dL (8.5-10.1); Carbon Dioxide 26.7 mmol/L (21.0-32.0); Chloride 104 mmol/L (98-107); Estimated GFR (African America >60 (>=60 mL/min/1.73m^2); Estimated GFR (Non-African Ame 53 (>=60 mL/min/1.73m^2); Globulin 3.7 g/dL; Glucose 93 mg/dL (74-106); Potassium 4.8 mmol/L (3.5-5.1); Sodium 139 mmol/L (136-145)
--- OUTSIDE RECORDS SUMMARY | 2024-11-29 14:49 | XMS_ITS | CCD ---
Author Organization [facility] CliniSypr Care Team Providers Care Fiscal Specialist Name Role Phone ISAAC LAROSE Referring Unavailable Unknown, Pcp Unavailable Unavailable Jacqueline Robles Unavailable Tai Zamora Unavailable Yolie Cross Unavailable Kaitlin Garibay Unavailable Winston Sotelo Primary Care Physician DEEPAK [...] Unavailable NILLDavid Attending Unavailable NILLDavid Attending Unavailable ETHELLAUREEN Attending Unavailable ELTAHAWY, PATRICE Attending Unavailable Winston Sotelo Attending Unavailable Winston Sotelo Admitting Unavailable Winston Sotelo Attending Unavailable Winston Sotelo Admitting Unavailable Winston Sotelo MD Attending Provider Allergies Allergy Classification Reported Allergen(s) Allergy Type Date of Onset Reaction(s) Facility (1 source) Cat Angioedema [facility] (1 source) DrugAllergiesUnable to Obtain [facility] Comment on above: Pharmacy/MD office jackelyn de souza (5 sources) Latex; Translations: [latex] Drug allergy 3 lips [facility] Medications Current Medications Medication Drug Class(es) Dates Sig (Normalized) Sig (Original) acetaminophen 500 mg oral tablet (9 sources) Start: 11-26-2024 take 2 tablets by mouth three times daily Acetaminophen 500 mg tablet Active 1000 MG PO Three times daily November 26, 2024 12:00am Tylenol Active [id number] 200 actuat albuterol 0.09 mg/actuat metered dose inhaler (1 source) beta2-Adrenergic Agonist Start: 09-04-2022 take 2 puff(s) by inhalation four times daily as needed Albuterol Sulfate HFA 108 (90 Base) MCG/ACT 2 puffs Inhalation 4 times a day prn Aug, Active Aspir-81 (8 sources) Aspir-81 Active aspirin 81 mg chewable tablet (3 sources) Platelet Aggregation Inhibitor, Nonsteroidal Anti-inflammatory Drug Start: 02-09-2023 aspirin 81 mg Chew Tab 81 mg = 1 tab(s), Chewed, Daily, Refills(s) 0 Start Date: 02/09/23 Status: Ordered Start: 03-24-2019 take 1 tablet by lenny once daily Aspirin 81 mg Tablet,Delayed Release (Dr/Ec) Active 81 MG PO Daily March 23, 2019 11:00pm atorvastatin 80 mg oral tablet (9 sources) HMG-CoA Reductase Inhibitor Start: 03-24-2019 take 1 tablet by mouth once daily Atorvastatin (Lipitor) 80 mg Tablet Active 80 MG PO Daily March 23, 2019 11:00pm Atorvastatin Chase cium Active azithromycin 250 mg oral tablet (1 [...] Status: Ordered celecoxib 200 mg oral capsule (11 sources) Nonsteroidal Anti-inflammatory Drug Start: 02-12-2018 take 1 capsule by mouth once daily Celecoxib (Celebrex) 200 mg Capsule Active 200 MG PO Daily March 23, 2019 11:00pm Celecoxib Active cephalexin 500 mg oral capsule [...] 1.5 mg/ml oral solution (2 sources) Uncompetitive C-licyeq-N-aspartat e Receptor Antagonist, Sigma-1 Agonist Start: 08-27-2022 take 10 mL by mouth every eight hours Lincoln DM 7.5-7.5 MG/5ML 10 mL Orally every 8 hours for 5 days Aug, Active docusate sodium 100 mg oral tablet (3 sources) Start: 11-26-2024 Docusate Sodium 100 mg capsule Active MG PO November 26, 2024 12:00am Start: 02-09-2023 take 1 capsule by [facility] twice daily as needed for constipation Colace 100 mg Cap 100 mg = 1 cap(s), Oral, BID, PRN for constipation, Refills(s) 0 Start Date: 02/09/23 Status: Ordered ferrous sulfate 325 mg oral tablet (3 sources) Start: 11-26-2024 take 1 tablet by mouth twice daily Ferrous Sulfate 325 mg (65 mg iron) tablet Active 325 MG PO Twice daily November 26, 2024 12:00am Start: 02-09-2023 take 1 tablet by [facility] twice daily ferrous sulfate 325 mg oral [...] Aug, Active furosemide 20 mg oral tablet (17 sources) Loop Diuretic Start: 03-24-2019 take 1 tablet by mouth once daily Furosemide (Lasix) 20 mg Tablet Active 20 MG PO Daily March 23, 2019 11:00pm Furosemide Not-T aking Furosemide Activ e hydrOXYzine [...] Status: Ordered lisinopril 40 mg oral tablet (11 sources) Angiotensin Converting Enzyme Inhibitor Start: 03-24-2019 take 1 tablet by mouth once daily lisinopril 40 mg Tab 40 mg = 1 tab(s), Oral, Daily, Refills(s) 0 Start Date: 02/09/23 Status: Ordered Lisinopril Activ e Multivitamin preparation (10 sources) Start: 02-09-2023 take 1 tablet by mouth once daily multivitamin 1 tab(s), Oral, Daily, Refill(s) 0 Start Date: 02/09/23 Status: Ordered Multivitamin Act lisandro oxybutynin chloride 5 mg oral tablet (11 sources) Cholinergic Muscarinic Antagonist Start: 02-12-2018 take 1 tablet by mouth once daily Oxybutynin Chloride 5 mg Tablet Active 5 MG PO Daily March 23, 2019 11:00pm Oxybutynin Chlor leonarda Active pantoprazole 40 mg delayed release oral tablet (12 sources) Proton Pump Inhibitor Start: 11-26-2024 Pantoprazole 40 mg tablet,delayed release (DR/EC) Active MG PO November 26, 2024 12:00am Start: 03-24-2019 End: 06-07-2019 take 1 tablet by mouth once daily Pantoprazole (Protonix) 40 mg Tablet,Delayed Release (Dr/Ec) Discontinued 40 MG PO Daily March 23, 2019 11:00pm June 07, 2019 5:36pm Start: 02-12-2018 take 40 mg by mouth twice daily pantoprazole 40 mg, Oral, BID, Refills(s) 0 Start Date: 02/12/18 Status: Ordered Pantoprazole Sod ium Active predniSONE 20 mg oral tablet (2 sources) Start: 09-04-2022 take 1 tablet by mouth every twelve hours predniSONE 20 MG 1 tablet Orally 2 times a day for 5 day(s) Aug, Active Start: 06-08-2019 End: 11-26-2024 take 1 tablet by mouth once daily Prednisone 50 mg tablet Discontinued 50 MG PO Daily 02 23June 07, 2019 11:00pm November 26, 2024 9:52am Semaglutide (1 source) Start: 11-26-2024 Semaglutide 0. 25 mg or 0.5 mg (2 mg/3 mL) pen injector Active 0.25 MG SUBCUT every week November 26, 2024 12:00am for 4 weeks Completed/Discontinued Medications Medication Drug Class(es) Dates Sig (Normalized) Sig (Original) acetaminophen 325 mg / HYDROcodone bitartrate 5 mg oral tablet (6 sources) Opioid Agonist Start: 10-17-2021 take 1 tablet by mouth every four hours as needed for pain HYDROcodone-Aceta minophen 5-325 MG 1 tablet as needed for pain Orally up to every 4 hrs for 5 days Sep, Not-Taking amLODIPine 5 mg oral tablet (1 source) Dihydropyridine Calcium Channel Denzel Start: 03-24-2019 End: 11-26-2024 take 1 tablet by mouth once daily Amlodipine (Norvasc) 5 mg Tablet Discontinued 5 MG PO Daily March 23, 2019 11:00pm November 26, 2024 9:53am amoxicillin 875 mg / clavulanate 125 mg oral tablet (4 sources) Penicillin-class Antibacterial Start: 02-19-2022 take 1 tablet by mouth every twelve hours Amoxicillin-Pot Clavulanate 875-125 MG 1 tablet Orally every 12 hrs for 10 day(s) February, Not-Taking diclofenac sodium 75 mg delayed release oral tablet (9 sources) Nonsteroidal Anti-inflammatory Drug Start: 06-07-2019 End: 11-26-2024 take 1 tablet by mouth twice daily Diclofenac Sodium 75 mg tablet,delayed release (DR/EC) Discontinued 75 MG PO Twice daily June 06, 2019 11:00pm November 26, 2024 9:53am Voltaren 1 % as directed Externally Active 24 hr metoprolol succinate 25 mg extended release oral tablet (9 sources) beta-Adrenergic Denzel Start: 03-24-2019 End: 11-26-2024 take 1 tablet by mouth once daily Metoprolol Succinate (Toprol Xl) 25 mg Tablet Extended Release 24 Hr Discontinued 25 MG PO Daily March 23, 2019 11:00pm November 26, 2024 9:52am Metoprolol Succi hannah ER Not-Taking tiZANidine 4 mg oral tablet (9 sources) Central alpha-2 Adrenergic Agonist Start: 06-07-2019 End: 11-26-2024 Tizanidine 4 mg Tablet Discontinued 4 MG PO every 6 to 8 hours as needed for Muscle Spasm June 06, 2019 11:00pm November 26, 2024 9:51am take 1 tablet by mouth every eig ht hours tiZANidine HCl 4 MG 1 tablet as needed Orally Three times a day Active traMADol hydrochloride 50 mg oral tablet (9 sources) Opioid Agonist Start: 03-24-2019 End: 11-26-2024 take 1 tablet by mouth every six hours as needed for pain Tramadol 50 mg Tablet Discontinued 50 MG PO Q6H as needed for Pain March 23, 2019 11:00pm November 26, 2024 9:51am traMADol HCl Not -Taking traMADol HCl Act lisandro Problems Active Problems [...] Coronary arteriosclerosis; Translations: [Atherosclerotic heart disease of [place] coronary artery without angina pectoris] Onset: 07-04-2022 02-09-2023 Chronic Deficiency and other anemia (2 sources) Anemia 02-12-2018 Episodic Deficiency and other anemia (2 sources) Iron deficiency anemia; Translations: [Iron deficiency anemia, unspecified] Onset: 04-25-2023 Episodic Diabetes mellitus without complication (2 sources) Diabetes mellitus 02-09-2023 Chronic E Codes: Fall (2 sources) Fall 07-10-2021 Comment on above: FALL Esophageal disorders (3 sources) Gastroesophageal reflux disease; Translations: [Gastro-esophageal reflux disease without esophagitis] 02-09-2023 Chronic Essential hypertension (8 sources) Essential (primary) hypertension; Translations: [Hypertensive disorder] Onset: 12-19-2018 02-12-2018 Chronic Immunizations and screening for infectious disease (5 sources) Contact with and (suspected) exposure to other viral communicable diseases; Translations: [Contact with or exposure to other viral diseases] Episodic Malaise and fatigue (1 source) Other fatigue; Translations: [Other fatigue] Onset: 12-19-2018 Episodic Nutritional deficiencies (2 sources) Vitamin D deficiency 02-09-2023 Chronic Open wounds of head; neck; and trunk (3 sources) Laceration of lower lip ; Translations: [Open wound of lip, without mention of complication] 07-10-2021 Episodic Osteoarthritis (3 sources) Arthritis; Translations: [Unspecified osteoarthritis, unspecified site] 02-09-2023 Chronic Other connective tissue disease (1 source) Muscle pain; Translations: [Myalgia, other site] 06-07-2019 Episodic Other diseases of veins and lymphatics (2 [...] upper limb] Chronic Other nervous system disorders (9 sources) Carpal tunnel syndrome; Translations: [Carpal tunnel syndrome, unspecified upper limb] 11-26-2024 Chronic Other nervous system disorders (10 sources) [...] Onset: 12-19-2018 Episodic Other upper respiratory infections (5 sources) Acute upper respiratory infection, unspecified; Translations: [...] [Spinal stenosis in cervical region] 02-09-2023 Episodic Sprains and strains (1 source) Strain of neck muscle; Translations: [Strain of muscle, fascia and tendon at neck level, initial encounter] 06-08-2019 Episodic Substance-related disorders (2 sources) Smoker 02-19-2018 [...] Test Name Value Interpretation Reference Range Facility No Panel InformationOrdered By: Melvi Vega on 11-26-2024 Quick Strep (POC) [facility] Urine Cultureon 10-16-2024 Bacteria identified Cx Nom (U) 15,000 colonies/ml mixed bacterial skin contaminants 2 Days PERFORMED BY: [place] [address] PATHOLOGIST FEED MILL SUPERVISOR SHERYL REGALADO M.D. Normal [facility] Comment on above: Performed By: #### C UU #### [address] Urine cultureOrdered By: Brandon Sotelo on 10-16-2024 Bacteria identified Cx Nom (U) Urine culture [facility] Office Visiton 01-16-2024 Follow-up visit [id number] Jackelyn Lujan 1965 F Date Provider Department Center 01/16/2024 271-TATUM NOAB BH CARD Phyllis Schilling No family history on file Level of Service:65790 DC OFFICE/OUTPATIENT ESTABLISHED MOD MDM 30 MIN Normal [facility] 12-18-2023 L Specimen: [id number] Re ceived: 12/19/23 Status: SOULudmila Req Num: [id number] Spec Type: Impression Subm Dr: Winston Sotelo MD Tissues: PATHPER Procedures: PATHREVIEW Age/ Patient Sex Location Account Attending Physician Pallavi Lujan 58/F LABELL [id number] Winston Sotelo MD SPEC NUM: [id number] RECD: 12/19/23 STATUS: SOUT REQ NUM: [id number] JEREMIE: 12/18/[address]: Winston Sotelo MD ENTERED: 12/19/[address]: Rebecca Ferguson SPEC TYPE: Impression DEPT: INOCENTE Terry ENTERED BY: [id number] RECV BY: [id number] ORDERED: PATHREVIEW ORDERED: PATHREVIEW Pathologist Review Abnormal CBC for peripheral blood smear review: -Mild leukopenia with mild lymphocytopenia -No obvious morphological abnormality of the leukocyte population -Relative percentage increase of the monocytes -Mild anemia of the mild macrocytic type, including a few ovalocytes are apparent, and at least rare polychromatophils -No obvious abnormality of the platelet morphology Comment: -The cause of mild anemia of the macrocytic type in general are due to chronic liver disease, alcohol consumption, or B12 and folate deficiency, including occasionally related effect from chemotherapy. Mild leukopenia can also occur in this regard.. The cause of lymphocytopenia can be due to immunodeficiency diseases, collagen vascular disease, sepsis, radiation therapy, or drug therapy including adrenocorticosteroids, and antineoplastics. Clinical correlation is therefore suggested CPT: 14375 CBC No results available. Specimen: [id number] Received: 12/19/23-1239 Status: DOMINIC Mancia Num: [id number] Spec Type: Impression Subm Dr: Winston Sotelo MD Tissues: PATHPER Procedures: PATHREVIEW Patient: Pallavi Lujan [id number] (Continued) Signed (signature on file) Krystal Leahy MD 12/21/231922 Normal [facility] Ambulatory Visit Summaryon 0 04-25-2023 Ambulatory Visit [...] longer receiving treatment for. Arthritis Numbness Normal [facility] General Surgery Office/Clini c Noteon 04-25-2023 [...] SARS-CoV-2 (COVID-19) mRNA-1273 vaccine 04/19/2021 Recorded Normal [facility] Comment on above: Result Comment: Elec tronically Signed By: ANNABEL BERRY, David Joyce\Date and Time Signed: 04/25/23 16:13 EDT Pathology Noteon 04-16-2023 Pathology Note [id number]#[id number]:127 [facility] Outside Colonoscopyon 2022 Outside Colonoscopy [id number]#1.00CD:127 [facility] Reminderson 04-12-2023 Reminders - From: Myra Escobedo LPN To: N - Clinical; Sent: 04/12/2023 13:58:02 EDT Show up: 03/11/2033 07:00:00 EDT Subject: colonoscopy recall Due Date/Time: 04/11/2033 07:00:00 EDT Reminder/Recall Patient due for screening colonoscopy 04/11/2033. [facility] Pre-Certification Formon Pre-Certification Form [id number]#[id number]:127 [facility] Consent for Procedure/Surger yon 02-16-2023 Consent for Procedure/Surgery [id number]#1.00CD:127 [facility] Facesheeton 02-15-2023 Facesheet [id number]#1.00CD:127 [facility] Ambulatory Visit Summaryon 0 02-14-2023 Ambulatory [...] longer receiving treatment for. Arthritis Numbness Normal [facility] Physician Referralon 023 Physician Referral [id number]#[id number]:127 Normal [facility] Office Visiton 01-19-2023 Follow-up visit [id number] Jackelyn Lujan 1965 F Date Provider Department Center 01/19/2023 120-LAUREEN [facility] C[facility] No family history on file Level of Service:53121 DC OFFICE/OUTPATIENT ESTABLISHED MOD MDM 30-39 MIN Reason for Visit and Comments: Follow-up [433051] - Yearly Palpitations [] - Went away w/ stopping coffee Normal [facility] INSULINon 01-17-2023 Insulin 7.1 uIU/mL Normal 2.6-24.9 [facility] Comment on above: Performed By: #### I NSULIN #### [facility] [address] [address] [address] Demetri Leahy CBC AUTO DIFFon 01-16-2023 BASO # 0.0 103/ul Normal 0.0-0.1 [facility] Comment on above: Performed By: #### C BC #### [facility] [address] [place] [address] Dr. Demetri Leahy Basophils/100 WBC (Bld) 0.7 % Normal 0.2-2.0 [facility] Comment on above: Performed By: #### C BC #### [facility] [address] [place] [address] Dr. Demetri Leahy EO # 0.1 103/ul Normal 0.0-0.7 [facility] Comment on above: Performed By: #### C BC #### [facility] [address] [place] [address] Dr. Demetri Leahy Eosinophils/100 WBC (Bld) 2.4 % Normal 0.9-7.0 [facility] Comment on above: Performed By: #### C BC #### [facility] [address] [place] [address] Dr. Demetri Leahy Erythrocyte distribution width (RBC) [Ratio] 12.9 % Normal 11.0-15.0 [facility] Comment on above: Performed By: #### C BC #### [facility] [address] [place] [address] Dr. Demetri Leahy Hematocrit (Bld) [Volume fraction] 32.3 % Critically low 36.0-48.0 [facility] Comment on above: Performed By: #### C BC #### [facility] [address] [place] [address] Dr. Demetri Leahy Hemoglobin (Bld) [Mass/Vol] 10.5 g/dL Critically low 12.0-16.0 [facility] Comment on above: Performed By: #### C BC #### [facility] [address] [place] [address] Dr. Demetri Leahy IG # 0.01 10e3/ul Normal 0.00-0.03 [facility] Comment on above: Performed By: #### C BC #### [facility] [address] [place] [address] Dr. Demetri Leahy IG % 0.2 % Normal 0.0-0.5 [facility] Comment on above: Performed By: #### C BC #### [facility] [address] [place] [address] Dr. Demetri Leahy LYMPH # 1.3 103/ul Normal 1.2-3.8 [facility] Comment on above: Performed By: #### C BC #### [facility] [address] [place] [address] Dr. Demetri Leahy Lymphocytes/100 WBC (Bld) 21.9 % Normal 20.5-60.0 [facility] Comment on above: Performed By: #### C BC #### [facility] [address] [place] [address] Dr. Demetri Leahy MANUAL DIFF REQ NO Normal [facility] Comment on above: Performed By: #### C BC #### [facility] [address] [place] [address] Dr. Demetri Leahy MCH (RBC) [Entitic mass] 31.4 pg Normal 26.7-34.0 [facility] Comment on above: Performed By: #### C BC #### [facility] [address] [place] [address] Dr. Demetri Leahy MCHC (RBC) [Mass/Vol] 32.5 g/dL Normal 29.9-35.2 [facility] Comment on above: Performed By: #### C BC #### [facility] [address] [place] [address] Dr. Demetri Leahy MCV (RBC) [Entitic vol] 96.7 fL Normal 81.0-99.0 [facility] Comment on above: Performed By: #### C BC #### [facility] [address] [address] [address] Demetri Leahy MONO # 0.6 103/ul Normal 0.3-0.8 [facility] Comment on above: Performed By: #### C BC #### [facility] [address] [address] [address] Demetri Leahy Monocytes/100 WBC (Bld) 9.9 % Normal 1.7-12.0 [facility] Comment on above: Performed By: #### C BC #### [facility] [address] [place] [address] Dr. Demetri Leahy NEUT # 3.9 103/ul Normal 1.4-6.5 [facility] Comment on above: Performed By: #### C BC #### [facility] [address] [place] [address] Dr. Demetri Leahy Neutrophils/100 WBC (Bld) 64.9 % Normal 43.0-75.0 [facility] Comment on above: Performed By: #### C BC #### [facility] [address] [place] [address] Dr. Demetri Leahy Platelet mean volume (Bld) [Entitic vol] 9.0 fL Critically low 9.5-13.5 [facility] Comment on above: Performed By: #### C BC #### [facility] [address] [place] [address] Dr. Demetri Leahy PLT 210 103/ul Normal 150-450 [facility] Comment on above: Performed By: #### C BC #### [facility] [address] [place] [address] Dr. Demetri Leahy RBC 3.34 106/ul Critically low 4.20-5.40 [facility] Comment on above: Performed By: #### C BC #### [facility] [address] [place] [address] Dr. Demetri Leahy WBC 5.9 103/ul Normal 4.0-11.0 [facility] Comment on above: Performed By: #### C BC #### [facility] [address] [place], [place] [id number] Dr. Demetri Leahy FREE THYROXINE INDEX T7on FTI 2.05 Normal 1.30-4.50 [facility] Comment on above: Performed By: #### T 7, TSH, LIPID, CMP #### [facility] [address] [place] [address] Dr. Demetri Leahy T3U 36.0 % Normal 30.0-39.0 [facility] Comment on above: Performed By: #### T 7, TSH, LIPID, CMP #### [facility] [address] [place] [address] Dr. Demetri Leahy T4 [Mass/Vol] 5.70 ug/dL Normal 4.80-13.90 [facility] Comment on above: Performed By: #### T 7, TSH, LIPID, CMP #### [facility] [address] [place] [address] Dr. Demetri Leahy GLYCOHEMOGLOBIN A1Con 2022 ADA RECOMMENDATION SEE BELOW Normal [facility] Comment on above: Result Comment: ADA RECOMMENDED LIMIT 4.0 - 6.0 ADA THERAPEUTIC TARGET < 7.0 ACTION SUGGESTED > 7.0 Performed By: #### A 1C #### [facility] [address] [place] [address] Dr. Demetri Leahy Glucose [Mass/Vol] 88 mg/dL Normal [facility] Comment on above: Performed By: #### A 1C #### [facility] [address] [place] [address] Dr. Demetri Leahy HbA1c (Bld) [Mass fraction] 4.7 % Normal 4.5-6.2 [facility] Comment on above: Performed By: #### A 1C #### [facility] [address] [place] [address] Dr. Demetri Leahy IRONon 01-16-2023 Iron [Mass/Vol] 41.0 ug/dL Critically low 50.0-170.0 [facility] Comment on above: Performed By: #### I BRYAN #### [facility] [address] [place] [address] Dr. Demetri Leahy LIPID PROFILEon 01-16-2023 CHOL-HDL RATIO NORM SEE BELOW Normal [facility] Comment on above: Result Comment: 3.3 - 4.4 LOW RISK 4.4 - 7.1 AVERAGE RISK 7.1 - 11.0 MODERATE RISK >11.0 HIGH RISK Performed By: #### T 7, TSH, LIPID, CMP #### [facility] [address] [place] [address] Dr. Demetri Leahy Cholesterol [Mass/Vol] 145 mg/dL Normal <=200 [facility] Comment on above: Performed By: #### T 7, TSH, LIPID, CMP #### [facility] [address] [place] [address] Dr. Demetri Leahy Cholesterol in HDL [Mass/Vol] 71 mg/dL Critically high 40-60 [facility] Comment on above: Performed By: #### T 7, TSH, LIPID, CMP #### [facility] [address] [place] [address] Dr. Demetri Leahy Cholesterol in LDL [Mass/Vol] 42.4 mg/dL Normal [facility] Comment on above: Performed By: #### T 7, TSH, LIPID, CMP #### [facility] [address] [address] [address] Demetri Leahy Cholesterol.total/Ch olesterol in HDL [Mass ratio] 2.0 {ratio} Normal [facility] Comment on above: Performed By: #### T 7, TSH, LIPID, CMP #### [facility] [address] [address] [address] Demetri Leahy HDL NORMAL > or = 60 mg/dl - LO W CARDIOVASCULAR RISK <40 mg/dl - HIGH CARDIOVASCULAR RISK Normal [facility] Comment on above: Performed By: #### T 7, TSH, LIPID, CMP #### [facility] [address] [place] [address] Dr. Demetri Leahy LDL CALC NORMAL SEE BELOW Normal [facility] Comment on above: Result Comment: <100 mg/dl OPTIMAL 100 - 129 mg/dl NEAR OR ABOVE OPTIMAL 130 - 159 mg/dl BORDERLINE HIGH 160 - 189 mg/dl HIGH >190 mg/dl VERY HIGH Performed By: #### T 7, TSH, LIPID, CMP #### [facility] [address] [place] [address] Dr. Demetri Leahy Triglyceride [Mass/Vol] 158 mg/dL Critically high <=150 [facility] Comment on above: Performed By: #### T 7, TSH, LIPID, CMP #### [facility] [address] [place] [address] Dr. Demetri Leahy VLDL CALC 31.6 mg/dL Normal [facility] Comment on above: Performed By: #### T 7, TSH, LIPID, CMP #### [facility] [address] [place] [address] Dr. Demetri Leahy OCC BLD IMMUNO SCREENon 12-21 OCCULT BLOOD Negative Normal NEGATIVE [facility] Comment on above: Performed By: #### T 7, TSH, LIPID, CMP #### [facility] [address] [place] [address] Dr. Demetri Leahy PROF 14(COMP METB)on 023 Albumin [Mass/Vol] 3.8 g/dL Normal 3.4-5.0 [facility] Comment on above: Performed By: #### T 7, TSH, LIPID, CMP #### [facility] [address] [place] [address] Dr. Demetri Leahy Albumin/Globulin [Mass ratio] 1.2 {ratio} Normal [facility] Comment on above: Performed By: #### T 7, TSH, LIPID, CMP #### [facility] [address] [place] [address] Dr. Demetri Leahy ALP [Catalytic activity/Vol] 50 U/L Normal 46-116 [facility] Comment on above: Performed By: #### T 7, TSH, LIPID, CMP #### [facility] [address] [place] [address] Dr. Demetri Leahy ALT [Catalytic activity/Vol] 53 U/L Normal 14-59 [facility] Comment on above: Performed By: #### T 7, TSH, LIPID, CMP #### [facility] [address] [place] [address] Dr. Demetri Leahy Anion gap [Moles/Vol] 14.1 mmol/L Normal [facility] Comment on above: Performed By: #### T 7, TSH, LIPID, CMP #### [facility] [address] [address] [address] Demetri Leahy AST [Catalytic activity/Vol] 36 U/L Normal 15-37 [facility] Comment on above: Performed By: #### T 7, TSH, LIPID, CMP #### [facility] [address] [address] [address] Demetri Leahy Bilirubin [Mass/Vol] 0.4 mg/dL Normal 0.2-1.0 [facility] Comment on above: Performed By: #### T 7, TSH, LIPID, CMP #### [facility] [address] [place] [address] Dr. Demetri Leahy Calcium [Mass/Vol] 9.0 mg/dL Normal 8.5-10.1 [facility] Comment on above: Performed By: #### T 7, TSH, LIPID, CMP #### [facility] [address] [place] [address] Dr. Demetri Leahy Chloride [Moles/Vol] 109 mmol/L Critically high 98-107 [facility] Comment on above: Performed By: #### T 7, TSH, LIPID, CMP #### [facility] [address] [place] [address] Dr. Demetri Leahy CO2 [Moles/Vol] 28.0 mmol/L Normal 21.0-32.0 [facility] Comment on above: Performed By: #### T 7, TSH, LIPID, CMP #### [facility] [address] [place] [address] Dr. Demetri Leahy Creatinine [Mass/Vol] 0.79 mg/dL Normal 0.55-1.02 [facility] Comment on above: Performed By: #### T 7, TSH, LIPID, CMP #### [facility] [address] [place] [address] Dr. Demetri Leahy EGFR-AF TRINIDADIAN >60 Normal >=60 [facility] Comment on above: Performed By: #### T 7, TSH, LIPID, CMP #### [facility] [address] [address] [address] Demetri Leahy EGFR-NON AF TRINIDADIAN >60 Normal >=60 [facility] Comment on above: Performed By: #### T 7, TSH, LIPID, CMP #### [facility] [address] [address] [address] Demetri Leahy Globulin (S) [Mass/Vol] 3.3 g/dL Normal [facility] Comment on above: Performed By: #### T 7, TSH, LIPID, CMP #### [facility] [address] [address] [address] Demetri Leahy Glucose [Mass/Vol] 86 mg/dL Normal 74-106 [facility] Comment on above: Performed By: #### T 7, TSH, LIPID, CMP #### [facility] [address] [address] [address] Demetri Leahy Potassium [Moles/Vol] 4.1 mmol/L Normal 3.5-5.1 [facility] Comment on above: Performed By: #### T 7, TSH, LIPID, CMP #### [facility] [address] [address] [address] Demetri Leahy Protein [Mass/Vol] 7.1 g/dL Normal 6.4-8.2 [facility] Comment on above: Performed By: #### T 7, TSH, LIPID, CMP #### [facility] [address] [address] [address] Demetri Leahy Sodium [Moles/Vol] 147 mmol/L Critically high 136-145 [facility] Comment on above: Performed By: #### T 7, TSH, LIPID, CMP #### [facility] [address] [address] [address] Demetri Leahy Urea nitrogen [Mass/Vol] 30.0 mg/dL Critically high 7.0-18.0 [facility] Comment on above: Performed By: #### T 7, TSH, LIPID, CMP #### [facility] [address] [address] [address] Demetri Leahy Urea nitrogen/Creatinine [Mass ratio] 38.0 mg/mg Normal [facility] Comment on above: Performed By: #### T 7, TSH, LIPID, CMP #### [facility] [address] [address] [address] Demetri Leahy Quick Strepon 01-16-2023 S. pyogenes Org specific cx Ql (Throat) Negative [facility] Other Quick Strep [facility] Other TSHon 01-16-2023 TSH 1.389 uIU/mL Normal 0.358-3.74 0 [facility] Comment on above: Performed By: #### T 7, TSH, LIPID, CMP #### [facility] [address] [place], [place] [id number] Dr. Demetri Leahy COVID/FLU RT-PCRon 2 SARS-CoV-2 (COVID-19) RNA KARTHIK+probe Ql (Unsp spec) Negative [facility] Other COVID/FLU RT-PCR Negative [employer] Other Quick Strepon 09-04-2022 S. pyogenes Org specific cx Ql (Throat) Negative [facility] Other maufait Strep [facility] Other COVID/FLU RT-PCRon 2 SARS-CoV-2 (COVID-19) RNA KARTHIK+probe Ql (Unsp spec) Negative [facility] Other COVID/FLU RT-PCR Negative [employer] Other Quick Strepon 08-27-2022 S. pyogenes Org specific cx Ql (Throat) Negative [facility] Other maufait Strep [employer] [facility] Other PROF CHEM 8 (BAS METB)on Anion gap [Moles/Vol] 13.6 mmol/L Normal [facility] Comment on above: Performed By: #### B MP #### [facility] [address] [address] [address] Demetri Leahy Calcium [Mass/Vol] 9.0 mg/dL Normal 8.5-10.1 [facility] Comment on above: Performed By: #### B MP #### [facility] [address] [place] [address] Dr. Demetri Leahy Chloride [Moles/Vol] 105 mmol/L Normal 98-107 [facility] Comment on above: Performed By: #### B MP #### [facility] [address] [address] [address] Demetri Leahy CO2 [Moles/Vol] 26.9 mmol/L Normal 21.0-32.0 [facility] Comment on above: Performed By: #### B MP #### [facility] [address] [place] [address] Dr. Demetri Leahy Creatinine [Mass/Vol] 1.04 mg/dL Critically high 0.55-1.02 [facility] Comment on above: Performed By: #### B MP #### [facility] [address] [place] [address] Dr. Demetri Leahy EGFR-AF TRINIDADIAN >60 Normal >=60 [facility] Comment on above: Performed By: #### B MP #### [facility] [address] [place] [address] Dr. Demetri Leahy EGFR-NON AF TRINIDADIAN 54 mL/min/1.73m2 Critically low >=60 [facility] Comment on above: Performed By: #### B MP #### [facility] [address] [address] [address] Demetri Leahy Glucose [Mass/Vol] 99 mg/dL Normal 74-106 [facility] Comment on above: Performed By: #### B MP #### [facility] [address] [place] [address] Dr. Demetri Leahy Potassium [Moles/Vol] 4.5 mmol/L Normal 3.5-5.1 [facility] Comment on above: Performed By: #### B MP #### [facility] [address] [place] [address] Dr. Demetri Leahy Sodium [Moles/Vol] 141 mmol/L Normal 136-145 [facility] Comment on above: Performed By: #### B MP #### [facility] [address] [address] [address] Demetri Leahy Urea nitrogen [Mass/Vol] 44.0 mg/dL Critically high 7.0-18.0 [facility] Comment on above: Performed By: #### B MP #### [facility] [address] [place] [address] Dr. Demetri Leahy Urea nitrogen/Creatinine [Mass ratio] 42.3 mg/mg Normal [facility] Comment on above: Performed By: #### B MP #### [facility] [address] [place] [address] Dr. Demetri Leahy PROF CHEM 8 (BAS METB)on Anion gap [Moles/Vol] 10.3 mmol/L Normal [facility] Comment on above: Performed By: #### B MP #### [facility] [address] [place] [address] Dr. Demetri Leahy Calcium [Mass/Vol] 8.6 mg/dL Normal 8.5-10.1 [facility] Comment on above: Performed By: #### B MP #### [facility] [address] [place] [address] Dr. Demetri Leahy Chloride [Moles/Vol] 107 mmol/L Normal 98-107 [facility] Comment on above: Performed By: #### B MP #### [facility] [address] [place] [address] Dr. Demetri Leahy CO2 [Moles/Vol] 29.0 mmol/L Normal 21.0-32.0 [facility] Comment on above: Performed By: #### B MP #### [facility] [address] [place] [address] Dr. Demetri Leahy Creatinine [Mass/Vol] 1.42 mg/dL Critically high 0.55-1.02 [facility] Comment on above: Performed By: #### B MP #### [facility] [address] [place] [address] Dr. Demetri Leahy EGFR-AF TRINIDADIAN 46 mL/min/1.73m2 Critically low >=60 [facility] Comment on above: Performed By: #### B MP #### [facility] [address] [address] [address] Demetri Leahy EGFR-NON AF TRINIDADIAN 38 mL/min/1.73m2 Critically low >=60 [facility] Comment on above: Performed By: #### B MP #### [facility] [address] [address] [address] Demetri Leahy Glucose [Mass/Vol] 91 mg/dL Normal 74-106 [facility] Comment on above: Performed By: #### B MP #### [facility] [address] [address] [address] Demetri Leahy Potassium [Moles/Vol] 5.3 mmol/L Critically high 3.5-5.1 [facility] Comment on above: Performed By: #### B MP #### [facility] [address] [address] [address] Demetri Leahy Sodium [Moles/Vol] 141 mmol/L Normal 136-145 [facility] Comment on above: Performed By: #### B MP #### [facility] [address] [address] [address] Demetri Leahy Urea nitrogen [Mass/Vol] 48.0 mg/dL Critically high 7.0-18.0 [facility] Comment on above: Performed By: #### B MP #### [facility] [address] [address] [address] Demetri Leahy Urea nitrogen/Creatinine [Mass ratio] 33.8 mg/mg Normal [facility] Comment on above: Performed By: #### B MP #### [facility] [id number] Demetri Leahy BN ELBOW COMPLETE MIN. 3 VIE Ramsey 07-10-2021 BN ELBOW COMPLETE MIN. 3 VIEWS Patient Name: PALLAVI LUJAN STUDY: ELBOW COMPLETE MIN 3 VIEWS Left INDICATION: L elbow trauma. COMPARISON: None ACCESSION NUMBER(S): [id number] ORDERING CLINICIAN: JACQUELINE ROBLES FINDINGS: Heterotopic ossification adjacent to the medial epicondyle of the distal humerus suggesting either chronic epicondylitis or remote injury. No acute fracture dislocation. IMPRESSION: Heterotopic ossification adjacent to the medial epicondyle of the distal humerus suggesting either chronic epicondylitis or remote injury. Electronically signed by: DOLORES PRICE MD Normal [facility] BN KNEE; COMPLT, 4 OR MORE V IEWSon 07-10-2021 BN KNEE; COMPLT, 4 OR MORE VIEWS Patient Name: PALLAVI LUJAN STUDY: KNEE; COMPLT, 4 OR MORE VIEWS INDICATION: knee injury after fall. COMPARISON: None ACCESSION NUMBER(S): [id number] ORDERING CLINICIAN: ADELSO LUTHER FINDINGS: Mild osteoarthritis right knee with small posterior loose body. Remote posttraumatic changes from prior MCL injury with heterotopic ossification. No acute fracture or osseous abnormality otherwise. IMPRESSION: Mild osteoarthritis right knee with small posterior loose body. Remote posttraumatic changes from prior MCL injury with heterotopic ossification. 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 ACCESSION NUMBER(S): [id number]; [id number] ORDERING CLINICIAN: JACQUELINE ROBLES; ADELSO LUTHER TECHNIQUE: [...] as stated. This study was interpreted at [facility], [place], [place]. 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 ACCESSION NUMBER(S): [id number]; [id number] ORDERING CLINICIAN: JACQUELINE LUTHER TECHNIQUE: Axial noncontrast CT images of [...] as stated. This study was interpreted at [facility], [place], [place]. Electronically signed by: DO Omari REED [facility] Provider Note - ED v3on 06-22 Provider [...] without assoc (more content not included)... Normal [facility] Risk Screen - Adult Emergenc yon 07-10-2021 Risk Screen - Adult Emergency Preferred Language: Preferred Language: Preferred Language for Discussing Health Care (patient/designee)[place] Advanced Directives: Advance Directive/DNRno Advance Directive Information [...] Communicatenone Learning Preferencesaudio Cultural Considerationsnone Developmental Considerationsnone Cheondoism Considerationsnone Other Learnersnone Learning Assessment (Other Learner): Learning Assessment (Other Learner): Other learner availableno Pressure Injury/TB/Substance: Pressure Injury: Pressure Injury Present on Admissionno Do you have a coughno Smoking Statusnever smoker (1) Alcohol Usedenies(1) Drug Usedenies (1) Drug 2 Usedenies (1) Admission Risk Screen: Significant IndicatorsComplete CAGE: CAGE: Is this an injured patient at a Trauma Center ([facility]/[place]): no Electronic Signatures: Uzma Menendez (CONSUELO) (Signed 10-Jul-2021 18:54) Authored: Preferred Language, Advanced Directives, Family Violence Adult, Learning Assessment (Patient), Learning Assessment (Other Learner), Pressure Injury/TB/Substance, Pressure Injury, CAGE Last Updated: 10-Jul-2021 18:54 by Uzma Menendez (CONSUELO) References: 1. Data Referenced From Provider Note - ED v3 10-Jul-2021 17:29 Normal [facility] Triage - EDon 07-10-2021 Triage - ED [...] obeys commands Best Verbal Response: (V5) oriented Allen Score: 15 Cough lasting greater than 3 [...] Medical History, Active Electronic Signatures: Lazarus Gupta (CONSUELO) (Signed 10-Jul-2021 17:15) Entered: Risk Screens, Pain, Travel History, Chart Review, Scores, Past Medical History Authored: Quick Triage, Risk Screens, Pain, Travel History, Chart Review, Scores, Past Medical History Last Updated: 10-Jul-2021 17:15 by Lazarus Gupta (CONSUELO) Normal [facility] Cardiovascular Lab Reporton 09-22-2020 Cardiovascular Lab Report [facility] Patient Name: Pallavi Lujan [facility] MR #: [id number] Physician: Patrice No, Department of M.D. Medicine Service Date: 09/21/2020 Division of Birthdate: 1965 Cardiology Room #: [facility] Cardiovascular Services [address] [place] [address] Cardiovascular Laboratory Report FINAL IMPRESSIONS: 1. Mild [...] right internal jugular vein was obtained. A 6-Turkmen 11 cm sheath was inserted without difficulty. [...] the right radial artery was obtained. A 6-Turkmen glide sheath was inserted without difficulty. Bilateral [...] No M.D. Date Trans: 09/22/2020 02:14 Fidencio/elma [id number] cc: Winston Sotelo M.D. [address] [id number] [facility] [id number] [facility] [place] [facility] Alfonso 02-01-2020 [facility] (COVHLD) PALLAVI LUJAN ([id number]) 1965 F Date Time Provider Department 02/01/20 ARLETTE HERNANDEZ (PA) During your visit today, we recorded the following information about you: Arlette Hernandez PA-C, EUGENIA 02/01/2020 10:03 AM Signed [place], Thank you for the referral, this patient meets criteria for COVID-19 testing in accordance with criteria found on the [facility] Intranet COVID19 Toolkit as of February 01, 2020 10:02 AM Please inform the patient that the test has been ordered, and that the [facility] Scheduling Department will call to schedule [...] Fully Assessed Reason for Visit: Covid-19 Hotline [0160] Primary Visit Diagnosis:Suspected Covid-19 Virus Infection [R68.89] Order(s):2019 CORONAVIRUS [SQCOVID] Order #: [id number] [facility] COVID-19 HOME MONITORING [6937274] Order #: [id number] Prescriptions as of 02/01/2020 Sig: ATORVASTATIN 80 [...] [F43.9] More... Anxiety [F41.9] BMI 40.0-44.9, adult ([facility]) [Z68.41] Encounter Status:Closed by ARLETTE HERNANDEZ on 02/01/20 [facility] Telephone (BLAZE) PALLAVI LUJAN ([id number]) 1965 F Date Time Provider Department 02/01/20 DEBBIE BORGES (RN) BLAZE During your visit today, we recorded the following information about you: Debbie Borges RN, RN 02/01/2020 9:32 AM Signed Telephone Nurse Triage for Flu-like symptoms Patient evaluated by telephone nursing triage.patient seen at [place] ED last nite.-Dx Bronchitis. zpak started and [...] with PCP. If no PCP, send to [facility]. Patient instructed to call back [...] acetaminophen overdose can hurt the liver. ? [employer], the company that makes Tylenol, has different dosage instructions for Tylenol in [place] and the [place]. In [place], the maximum recommended dose per day is 4,000 mg or twelve (12) Regular-Strength (325 mg) pills. In the [place], [employer] recommends a maximum dose of ten (10) Regular-Strength (325 mg) pills. ? Before taking any medicine, read all the instructions on the package. PATIENT INSTRUCTIONS: At present, these are our recommendations regarding the coronavirus (COVID-19) outbreak: - Wash your hands regularly for at least 20 seconds with soap and water, especially before eating. - If soap/water are unavailable, use a hand makeup editor with at least 60% alcohol - Avoid [...] that you do not come to any [facility] facility without calling your primary care physician or speaking to a provider using a virtual visit using [facility] Online. You will be evaluated to determine if you require being seen in person or if you meet CDC guidelines for testing for COVID-19 based on symptoms, travel and exposures. If you meet criteria for testing, your [facility] provider or primary care physician [...] can be found on the CDC and [facility] web sites: https://www.cdc.gov/coronav irus/2019-nCoV/index.html ? 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 [facility] Comment on above: Result Comment: This test was developed and its performance characteristics determined by [facility]'s Adelso Neida [facility] Pathology and Laboratory Medicine [place]. This test has been authorized by FDA under an Emergency Use Authorization (EUA). This test has been validated in accordance with the FDA's Guidance Document Policy for Diagnostics Testing in Laboratories Certified to Perform High Complexity Testing under CLIA prior to Emergency use Authorization for Coronavirus Disease 2019 during the Public Health Emergency issued on December 20, 2019. Performed By: #### C OVID ####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 Author Type: Physician Exercise Rider Type: Progress Notes Filed: 02/01/2020 12:52 PM Note Text: Telemedicine Visit - Distance Health Virtual Visit Note This Team Access Model visit is a virtual encounter. It required patient-provider interaction for the medical decision making as documented below. Patient seen on [facility] [facility] platform. Location of patient: [place] History of Present Illness Pallavi Lujan is [...] in providing you the best care. Normal [facility] PROGRESS HNO ID: [id number] Author: Cynthia Boogie) Alee Service: ? Author Type: Physician Exercise Rider Type: Progress Notes Filed: 02/01/2020 9:56 AM Note Text: Telemedicine Visit - Distance Health Telephone Visit Note This Team Access Model visit is a virtual encounter. It required patient-provider interaction for the medical decision making as documented below. The patient is a [facility] employee: No Location of patient: [place] History of Present Illness Pallavi Lujan is a 54 year old female who presents with 1 days of symptoms that are stable. Pt reports that yesterday she all of a sudden felt unwell. Went to ER in [place] last night and reports that tested negative [...] fail to improve Cynthia Vickers PA-C Normal [facility] CNOVon 05-26-2019 CNOV Office Visit (GSPSMN ) PALLAVI LUJAN ([id number]) 1965 F Date Time Provider Department 05/26/19 1:00 PM AMELIE ROBLEDO [facility] During your visit today, we recorded the following information about you: Amelie Robledo, PHD 05/26/2019 2:28 PM Signed [facility] [facility] BARIATRIC SURGERY BEHAVIORAL HEALTH EVALUATION DATE OF SERVICE: 05/26/2019 TIME OF SERVICE: 1:10 PM - 2:10 PM COST CENTER: 3B CPT CODE: 63267 Psychiatric diagnostic evaluation BILLING CODE: ENDO PSYL [...] strategies have been effective. The patient notes jewish practice is: Zoroastrianism; will think about whether she'd take blood [...] AFTER COMPLETION OF GROUP (To schedule, call [phone]) *Continue to avoid alcohol in preparation for [...] emotional and behavioral readiness (To schedule call [phone]) *Read Preparing for Weight Loss Surgery: Workbook (Treatments That Work) by Kris Bazzi, Reji Ndiaye, and Monse Alcantar ([employer], 2006) *continue CPAP Adherence *implement [...] any questions. Amelie Robledo Ph.D., Clinical Psychologist; [facility] Director of Behavioral Services BEHAVIORAL HEALTH BARIATRIC [...] by AMELIE ROBLEDO PHD on 05/26/19 [facility] CNOV Office Visit (GSPSMN ) PALLAVI LUJAN ([id number]) 1965 F Date Time Provider Department 05/26/19 12:00 PM PSYL TESTING MAIN GSPSMN During your visit today, we recorded the following information about you: Amelie Robledo, PHD 05/26/2019 3:52 PM Signed [facility] PSYCHOLOGICAL TEST REPORT PATIENT: Pallavi Lujan ( ) TEST ADMINISTERED: [place] Multiphasic Personality Inventory-2 Restructured Form (MMPI2-RF) Binge Eating Questionnaire (BEQ) DATE: ADMINISTERED: May 26, 2019 DATE REVIEWED: May 26, 2019 TIME REVIEWED (start/stop): 3:17 PM - 3:55 PM BILL Robledo, [facility]#: [id number] computer administration of test. 13358 (1 unit) The patient completed the MMPI2-RF in the [facility] [place] and was proctored by trained personnel. The radio news writer was available for help with the [...] AFTER COMPLETION OF GROUP (To schedule, call [phone]) *Continue to avoid alcohol in preparation for [...] emotional and behavioral readiness (To schedule call [phone]) *Read Preparing for Weight Loss Surgery: Workbook (Treatments That Work) by Kris Bazzi, Reji Ndiaye, and Monse Alcantar ([employer], 2006) *continue CPAP Adherence *implement [...] patient can request a written copy through i4.ms. This report is not intended for forensic [...] Status:Closed by AMELIE ROBLEDO PHD on 05/26/19 [facility] PROGRESSon 05-26-2019 PROGRESS HNO ID: [id number] Author: Amelie Robledo Service: ? Author Type: Physician Type: Progress Notes Filed: 05/26/2019 3:52 PM Note Text: [facility] PSYCHOLOGICAL TEST REPORT PATIENT: Pallavi Lujan ( ) TEST ADMINISTERED: [place] Multiphasic Personality Inventory-2 Restructured Form (MMPI2-RF) Binge Eating Questionnaire (BEQ) DATE: ADMINISTERED: May 26, 2019 DATE REVIEWED: May 26, 2019 TIME REVIEWED (start/stop): 3:17 PM - 3:55 PM BILL Robledo, CPT#: 35054.59 computer administration of test. 80238 (1 unit) The patient completed the MMPI2-RF in the [facility] [place] and was proctored by trained personnel. The radio news writer was available for help with the [...] AFTER COMPLETION OF GROUP (To schedule, call [phone]) *Continue to avoid alcohol in preparation for [...] emotional and behavioral readiness (To schedule call [phone]) *Read Preparing for Weight Loss Surgery: Workbook (Treatments That Work) by Kris Bazzi, Reji Ndiaye, and Monse Alcantar ([employer], 2006) *continue CPAP Adherence *implement [...] patient can request a written copy through i4.ms. This report is not intended for forensic purposes. Amelie Robledo, Ph.D. Psychologist [facility] PROGRESS HNO ID: [id number] Author: Amelie Robledo Service: ? Author Type: Physician Type: Progress Notes Filed: 05/26/2019 2:28 PM Note Text: [facility] BARIATRIC SURGERY BEHAVIORAL HEALTH EVALUATION DATE OF SERVICE: 05/26/2019 TIME OF SERVICE: 1:10 PM - 2:10 PM COST CENTER: [facility] CPT CODE: 30309 Psychiatric diagnostic evaluation BILLING CODE: ENDO PSYL MAIN BILL/Venkat DATE OF FIRST SERVICE THIS CYCLE: 05/26/2019 SESSION #: 1 The patient signed the Informed Consent for Psychological Evaluation AND Care Form, and the [facility] care insurance benefits, fees for service, emergency [...] strategies have been effective. The patient notes jewish practice is: Zoroastrianism; will think about whether she'd take blood [...] AFTER COMPLETION OF GROUP (To schedule, call [phone]) *Continue to avoid alcohol in preparation for [...] emotional and behavioral readiness (To schedule call [phone]) *Read Preparing for Weight Loss Surgery: Workbook (Treatments That Work) by Kris Bazzi, Reji Ndiaye, and Monse Alcantar ([employer], 2006) *continue CPAP Adherence *implement [...] any questions. Amelie Robledo Ph.D., Clinical Psychologist; [facility] Director of Behavioral Services BEHAVIORAL HEALTH BARIATRIC EVALUATION SUMMARY DATE : 05/26/2019 PATIENT NAME: Ms. Pallavi Lujan 1. Consent: Fair 2. Expectations:Fair 3. Social support :Good 4. Mental Health :Good 5. Chemical/Alcohol Abuse/Dependence: Guarded 6. Eating Behaviors:Good 7. Adherence : Good 8. Coping/Stressors:Fair 9. Overall Psychological Impression: Fair [facility] CNCNPATEDon 05-19-2019 CNCNPATED Education (BMIREJ) PALLAVI LUJAN ([id number]) 1965 F Date Time Provider Department 05/19/19 [...] guidelines for weight loss surgery and has [employer] Insurance therefore is required to complete 6 [...] 4. Participate in sitting exercise/therapy as possible. Intellect[employer]Tnathanael Marquis 30 minutes each - every other [...] May 19, 2019 TIME: 10:06 AM PAGER: [phone] Primary Visit Diagnosis:Class 3 severe obesity due [...] Encounter Status:Closed by VIKAS SANTOS on 05/19/19 [facility] PROGRESSon 05-19-2019 PROGRESS HNO ID: [id number] Author: Vikas Santos Service: ? Author Type: [...] guidelines for weight loss surgery and has [employer] Insurance therefore is required to complete 6 [...] 4. Participate in sitting exercise/therapy as possible. [place] Fertilitynathanael Marquis 30 minutes each - every other [...] May 19, 2019 TIME: 10:06 AM PAGER: [phone] [facility] CNCNPATEDon 03-14-2019 CNCNPATED Education (BMIREJ) LUJANPALLAVI SHORT ([id number]) 1965 F Date Time Provider Department 03/14/19 2:00 PM VIKAS SANTOS (RD) BMIREJ Reason for Visit: Reassessment [674] Patient Education [91] Progress Notes: Vikas Santos RD 03/14/2019 5:08 PM Signed [facility] PATIENT EDUCATION NOTE-Established Shared Nutrition Group [...] do you eat deep fried foods (chips, Turkmen fries, fried meats, etc) Never How often [...] guidelines for weight loss surgery and has [employer] Insurance therefore is required to complete 6 [...] March 14, 2019 TIME: 4:55 PM PAGER: [phone] Primary Visit Diagnosis:Class 3 severe obesity due [...] Encounter Status:Closed by VIKAS SANTOS on 03/14/19 [facility] PROGRESSon 03-14-2019 PROGRESS HNO ID: [id number] Author: Vikas Santos Service: ? Author Type: Registered Dietitian Type: Progress Notes Filed: 03/14/2019 5:08 PM Note Text: [facility] PATIENT EDUCATION NOTE-Established Shared Nutrition Group [...] do you eat deep fried foods (chips, Turkmen fries, fried meats, etc) Never How often [...] guidelines for weight loss surgery and has [place] therefore is required to complete 6 [...] March 14, 2019 TIME: 4:55 PM PAGER: [phone] [facility] CNCNPATEDon 02-17-2019 CNCNPATED Education (BMIREJ) PALLAVI LUJAN ([id number]) 1965 F Date Time Provider Department 02/17/19 [...] skip meals. - - met 2.? Begin 4248-7021 calorie partial liquid diet (refer to handout) - partially met Breakfast: protein shake (200-250 calories, 15+ grams protein) plus 1 piece of fruit Lunch: protein shake (200-250 calories, 15+ grams protein) plus 1 piece of fruit Dinner: 4-5 ounces lean protein, 1 cup starch (bread/pasta/potatoes/corn/ peas), unlimited non starchy vegetables 1 snack (< [...] guidelines for weight loss surgery and has [employer] Insurance therefore is required to complete 6 [...] April appointment today prior to leaving at [facility] if preferred location Referred/Supervised by: Neo/Mark MYERS Billing Type: Re-assess/15 min 2 units SIGNATURE: Vikas Santos RD PATIENT NAME: Pallavi Lujan DATE: February 17, 2019 TIME: 8:38 AM PAGER: [phone] Primary Visit Diagnosis:Class 3 severe obesity due [...] Allergies) Date Reviewed: 02/17/2019 Reviewed by: Vikas Mendoza) Nicanor - Fully [...] Encounter Status:Closed by VIKAS SANTOS on 02/17/19 [facility] PROGRESSon 02-17-2019 PROGRESS HNO ID: [id number] Author: Vikas (Ravi) Nicanor Service: ? Author Type: Registered Dietitian Type: Progress Notes Filed: 02/17/2019 11:26 AM Note Text: Nutritional Therapy Pre op weight loss surgery Sleeve Gastrectomy Re-Assessment PROGRESS: Nutrition Intervention (date of last encounter 01/17/2019) Read Your Guide to Surgery before next visit - - met 1.? Do not skip meals. - - met 2.? Begin 6812-3939 calorie partial liquid diet (refer to handout) - partially met Breakfast: protein shake (200-250 calories, 15+ grams protein) plus 1 piece of fruit Lunch: protein shake (200-250 calories, 15+ grams protein) plus 1 piece of fruit Dinner: 4-5 ounces lean protein, 1 cup starch (bread/pasta/potatoes/corn/ peas), unlimited non starchy vegetables 1 snack (< [...] guidelines for weight loss surgery and has [employer] Insurance therefore is required to complete 6 [...] April appointment today prior to leaving at [facility] if preferred location Referred/Supervised by: Neo/Mark MYERS Billing Type: Re-assess/15 min 2 units SIGNATURE: Vikas Santos RD PATIENT NAME: Pallavi Lujan DATE: February 17, 2019 TIME: 8:38 AM PAGER: [phone] [facility] CNOVon 02-14-2019 CN Office Visit (BMIREJ ) PALLAVI LUJAN ([id number]) 1965 F Date Time Provider Department 02/14/19 [...] chronic medical conditions associated with obesity include [place] diabetes, hypertension taking Norvasc, lisinopril, metoprolol and [...] goal weight prior to liquid fast: 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 Surgically Cleared with completion of the below: [...] Yuni Larson MD Referring Provider: YUNI LARSON) [[id number]] Allergies As of Date: 02/14/2019 (No Known Allergies) Date Reviewed: 02/14/2019 Reviewed by: Ernestine Spaulding - Fully Assessed Reason for Visit: New Patient [172] Primary Visit Diagnosis:Morbid obesity (HCC) [E66.01] Other Visit Diagnosis:Gastroesophageal reflux disease, esophagitis presence not specified [K21.9] Order(s):EGD [[id number]] Order #: [id number] FUTURE Prescriptions as of 02/14/2019 Sig: ATORVASTATIN [...] Encounter Status:Closed by YUNI LARSON on 02/14/19 [facility] PROGRESSon 02-14-2019 PROGRESS HNO ID: [id number] Author: Yuni Valverde) Neo Service: ? 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 Other: . IMPRESSION: Mild bibasilar atelectasis. 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: ANGELA Transcribe Date/Time: Dec 19 2018 2:47P Dictated by : RUTH ANN OWENS MD This examination was interpreted and the report reviewed and electronically signed by: RUTH ANN OWENS MD on Dec 19 2018 2:48PM EST [id number] [facility] Vital Signs Date Time Vital Sign Value Performing Clinician Facility 11-26-2024 09:48-0500 Body height 165.1 cm Winston Sotelo MD Work Phone: [facility] 11-26-2024 09:48-0500 Body mass index (BMI) [Ratio] 34.9 kg/m2 Winston Sotelo MD Work Phone: [facility] 11-26-2024 09:48-0500 Body temperature 98.6 [degF] Winston Sotelo MD Work Phone: [facility] 11-26-2024 09:48-0500 Body weight 95.25 kg Winston Sotelo MD Work Phone: [facility] 11-26-2024 09:48-0500 Diastolic blood pressure 85 mm[Hg] Winston Sotelo MD Work Phone: [facility] 11-26-2024 09:48-0500 Heart rate 119 /min Winston Sotelo MD Work Phone: [facility] 11-26-2024 09:48-0500 Respiratory rate 18 /min Winston Sotelo MD Work Phone: [facility] 11-26-2024 09:48-0500 SaO2% (BldA) [Mass fraction] 94 % Winston Sotelo MD Work Phone: [facility] 11-26-2024 09:48-0500 Systolic blood pressure 150 mm[Hg] Winston Sotelo MD Work Phone: [facility] 02-14-2023 15:47-0400 Blood Pressure Location David J[facility] [place] 02-14-2023 15:47-0400 Diastolic blood pressure 82 mm[Hg] David NILL [facility] [place] 02-14-2023 15:47-0400 Heart rate 82 /min David NILL [facility] [place] 02-14-2023 15:47-0400 Respiratory rate 16 /min David NILL [facility] [place] 02-14-2023 15:47-0400 Systolic blood pressure 132 mm[Hg] David NILL [facility] [place] 02-04-2023 13:50-0400 Body height 165.1 cm Kaitlin Garibay Other [facility] Other 02-04-2023 13:50-0400 Body mass index (BMI) [Ratio] 35.44 kg/m2 Kaitlin Contrerasmond Other [facility] Other 02-04-2023 13:50-0400 Body temperature 97.1 [degF] Kaitlin Contrerasmond Other [facility] Other 02-04-2023 13:50-0400 Body weight 96.62 kg Kaitlin Contrerasmond Other [facility] Other 02-04-2023 13:50-0400 Diastolic blood pressure 71 mm[Hg] Kaitlin Contrerasmond Other [facility] Other 02-04-2023 13:50-0400 Respiratory rate 18 /min Kaitlin Contrerasmond Other [facility] Other 02-04-2023 13:50-0400 SaO2% (BldA) [Mass fraction] 96 % Kaitlin Garibay Other [facility] Other 02-04-2023 13:50-0400 Systolic blood pressure 110 mm[Hg] Kaitlin Garibay Other [facility] Other 01-16-2023 16:45-0400 Body height 165.1 cm Yolie Cross Other [facility] Other 01-16-2023 16:45-0400 Body mass index (BMI) [Ratio] 36.27 kg/m2 Yolie Crsos Other [facility] Other 01-16-2023 16:45-0400 Body temperature 97.3 [degF] Yolie Cross Other [facility] Other 01-16-2023 16:45-0400 Body weight 98.88 kg Yolie Cross Other [facility] Other 01-16-2023 16:45-0400 Respiratory rate 18 /min Yolie Cross Other [facility] Other 01-16-2023 16:45-0400 SaO2% (BldA) [Mass fraction] 97 % Yolie Cross Other [facility] Other 09-04-2022 13:50-0500 Body height 165.1 cm Kaitlin Garibay Other [facility] Other 09-04-2022 13:50-0500 Body mass index (BMI) [Ratio] 35.94 kg/m2 Kaitlin Contrerasmond Other [facility] Other 09-04-2022 13:50-0500 Body temperature 97.1 [degF] Kaitlin Contrerasmond Other [facility] Other 09-04-2022 13:50-0500 Body weight 97.98 kg Kaitlin Contrerasmond Other [facility] Other 09-04-2022 13:50-0500 Diastolic blood pressure 75 mm[Hg] Kaitlin Lani Other [facility] Other 09-04-2022 13:50-0500 Respiratory rate 18 /min Kaitlin Lani Other [facility] Other 09-04-2022 13:50-0500 SaO2% (BldA) [Mass fraction] 97 % Kaitlin Lani Other [facility] Other 09-04-2022 13:50-0500 Systolic blood pressure 141 mm[Hg] Kaitlin Garibay Other [facility] Other 08-27-2022 10:35-0500 Body height 165.1 cm Yolie Cross Other [facility] Other 08-27-2022 10:35-0500 Body mass index (BMI) [Ratio] 36.07 kg/m2 Yolie Cross Other [facility] Other 08-27-2022 10:35-0500 Body temperature 97.6 [degF] Yolie Cross Other [facility] Other 08-27-2022 10:35-0500 Body weight 98.34 kg Yolie Cross Other [facility] Other 08-27-2022 10:35-0500 Diastolic blood pressure 81 mm[Hg] Yolie Cross Other [facility] Other 08-27-2022 10:35-0500 Respiratory rate 18 /min Yolie Cross Other [facility] Other 08-27-2022 10:35-0500 SaO2% (BldA) [Mass fraction] 98 % Yolie Cross Other [facility] Other 08-27-2022 10:35-0500 Systolic blood pressure 126 mm[Hg] Yolie Cross Other [facility] Other 08-18-2021 15:30-0400 Body height 165.1 cm Tai Zamora Other [facility] Other 08-18-2021 15:30-0400 Body mass index (BMI) [Ratio] 48.25 kg/m2 Tai Zamora Other [facility] Other 08-18-2021 15:30-0400 Body weight 131.54 kg Tai Zamora Other [facility] Other 07-10-2021 19:10-0400 Body height 165.1 cm Pcp Unknown [facility] 07-10-2021 19:10-0400 Body temperature 97.52 [degF] Pcp Unknown [facility] 07-10-2021 19:10-0400 Body weight 94 kg Pcp Unknown [facility] 07-10-2021 19:10-0400 Diastolic blood pressure 68 mm[Hg] Pcp Unknown [facility] 07-10-2021 19:10-0400 Heart rate 78 /min Pcp Unknown [facility] 07-10-2021 19:10-0400 Respiratory rate 16 /min Pcp Unknown [facility] 07-10-2021 19:10-0400 SaO2% (BldA) [Mass fraction] 96 % Pcp Unknown [facility] 07-10-2021 19:10-0400 Systolic blood pressure 127 mm[Hg] Pcp Unknown [facility] Encounters Encounter Date Encounter Type Care Provider Facility Start: 11-26-2024 End: 11-26-2024 ambulatory Winston Sotelo MD Work Phone: [facility] Work Phone: Start: 11-26-2024 End: 11-26-2024 Patient encounter procedure Winston Sotelo MD Work Phone: [facility] Work Phone: Start: 10-16-2024 End: 10-16-2024 ambulatory Winston Sotelo Facility:[facility] Start: 10-16-2024 End: 10-16-2024 Departed Referred Winston Sotelo MD Work Phone: [facility] Start: 01-16-2024 End: 01-16-2024 [facility] Start: 12-19-2023 End: 12-19-2023 ambulatory Winston Sotelo Facility:[facility] Start: 04-25-2023 End: 04-26-2023 ambulatory David R NILL Facility:[facility] Start: 04-25-2023 End: 04-25-2023 Patient encounter procedure David R NILL [facility] Start: 04-11-2023 End: 04-12-2023 ambulatory David R NILL Facility:[id number] Start: 03-14-[address] WINSTON SOTELO . Facili ty:[facility] Start: 02-14-2023 End: 02-15-2023 ambulatory David R NILL Facility:[facility] Start: 02-14-2023 End: 02-14-2023 Patient encounter procedure David R NILL [facility] Start: 02-04-2023 End: 02-04-2023 ambulatory Kaitlin Garibay Other [facility] Other Start: 02-04-2023 Office outpatient vi sit 15 minutes Kaitlin Garibay [facility] Start: 01-25-2023 ambulatory David NILL Facility:[facility] Start: 01-19-2023 Encounter for genera l adult medical examination without abnormal findings DR WINSTON SOTELO . [facility] Start: 01-19-2023 End: 01-[facility] Start: 01-16-2023 Office outpatient vi sit 15 minutes Yolie Cross [facility] Start: 01-16-2023 End: 01-17-[address] WINSTON SOTELO . [facility] Other Start: 01-16-2023 End: 01-17-2023 Encounter for general adult medical examination without abnormal findings DR WINSTON SOTELO . Facility:[facility] Start: 09-04-2022 End: 09-04-2022 ambulatory Kaitlin Garibay Other [facility] Other Start: 09-04-2022 Office outpatient vi sit 15 minutes Kaitlin Lain [facility] Start: 08-27-2022 End: 08-27-2022 ambulatory Yolie Cross Other [facility] Other Start: 08-27-2022 Office outpatient vi sit 25 minutes Yolie Cross [facility] Start: 07-05-2022 End: 07-06-[address] PATRICE NO Facility:[facility] Start: 06-30-2022 End: 07-01-[address] WINSTON SOTELO . Facility:[facility] Start: 11-01-2021 End: 11-01-2021 ambulatory Tai Olexa Other [facility] Other Start: 11-01-2021 Postop follow up vis it related to original px Ati Olexa [facility] [place] Start: 10-17-2021 End: 10-17-2021 ambulatory Tai Olexa Other [facility] Other Start: 10-17-2021 Telephone encounter Tai Olexa [facility] Start: 09-21-2021 End: 09-21-2021 ambulatory Tai Olexa Other [facility] Other Start: 09-21-2021 Telephone encounter Tai Olexa [facility] Start: 08-18-2021 Encounter for other preprocedural examination Tai Olexa [facility] Start: 08-18-2021 Office outpatient ne w 45 minutes Tai Olexa [facility] Start: 07-10-2021 End: 07-10-2021 Emergency department patient visit Jacqueline Robles [facility] Adult ED Gold 04 Start: 03-25-2019 Patient encounter status Asha Sotelo MD Work Phone: [facility] Start: 12-19-2018 Encounter for other preprocedural examination [facility] Start: 12-19-2018 Patient encounter procedure [facility] Procedures Date Procedure Procedure Detail Performing Clinician Start: 11-26-2024 Quick Strep (POC) Winston Sotelo MD Work Phone: Start: 10-16-2024 Urine culture Winston Sotelo MD Work Phone: Start: 04-11-2023 Colonoscopy [facility] Start: 04-11-2023 Esophagogastroduodenoscopy David NILL Start: 10-22-2020 Gastric sleeve David NILL Decompression of median nerve David NILL H/O: tubal ligation David NILL History of operative procedure on elbow David NILL Repair of meniscus David Ruth SCHROEDER Immunizations Immunization Date Immunization Notes Care Provider Shari saunders 02-04-2023 tetanus toxoid, reduced diphtheria toxoid, and acellular pertussis vaccine, adsorbed Kaitlin Garibay Other [facility] 07-10-2021 tetanus toxoid, reduced diphtheria toxoid, and acellular pertussis vaccine, adsorbed Pcp Unknown [facility] 05-21-2021 SARS-CoV-2 (COVID-19 ) mRNA-1273 vaccine David NILL [facility] 04-19-2021 SARS-CoV-2 (COVID-19 ) mRNA-1273 vaccine David NILL [facility] [place] NEGATED: Highlighted row has not occurred!02-14-2023 influenza virus vaccine, unspecified formulation David NILL [facility] [place] Payers Date Payer Category Payer Self-pay 1965 Unknown [id number] 2.16.84 [id number] 1965 Unknown [id number] 2.16.84 [id number] 1965 Unknown [id number] 2.16.84 [id number] 1965 Unknown [id number] 2.16.84 [id number] 1965 Unknown [id number] [id number] 1965 Unknown [id number] [id number] 1965 Unknown [id number] [id number] 1965 Unknown [id number] [id number] 1960 Medicaid [id number] 2. [id number] 1960 Unknown [id number] 2.1 [id number] Unknown [employer] Unknown [id number] [id number] Unknown [id number] [id number] Social History Date Type Detail Facility [facility] Tobacco smoking consumption unknown [facility] Sex Assigned At [facility] Medical [facility] Start: 02-14-2023 End: 11-26-2024 Tobacco smoking status Ex-smoker (finding) [facility] [place] Tobacco smoking status Never General [facility] [place] Start: 11-26-2024 Sex Female (finding) [facility] Start: 1965 Sex Assigned At Female F [facility] Functional Status Date Assessment Result Facility 02-14-2023 Functional [facility] N/A [facility] 08-18-2021 to 01-16-2024 Note Date & Type Note Facility 01-16-2024 Note [facility] Cardiology Clinic Note Chief Complaint: Patient here [...] Follow up with Dr. No as scheduled. Assessment: Coronary atherosclerosis; mild coronary disease cardiac catheterization 09/2022 Heart failure with preserved ejection fraction Essential hypertension Obesity s/p gastric sleeve surgery Plan: Continue guideline directed medical therapy for coronary artery disease including aspirin, high intensity statin therapy, beta-denzel and an angiotensin-c (more content not included)... [facility] 02-15-2023 Note Chief Complaint consultation for anemia [...] than 30 d (more content not included)... [facility] Comment on above: Result Comment: [...] no improvement in 2 to 3 days [facility] Other 03-31-2023 NoteHypertension is currently well controlled- 124/76 Continue all meds- lisinopril, lasix, [facility]23 NoteNY[facility] II Continue GDMT- Lasix 20 mg daily- Diuretic therapy Monitor daily weights, I&O, fluid restriction 1.5-2L/day, renal function and electrolytesUnProvidence Hospital03-31-2023 NoteCoronary artery disease is Without any concerning symptoms Continue goal-directed medical therapy including aspirin, Lipitor, carvedilol, lisinopril Continue heart healthy diet, regular [facility]Un[facility] 01-19-2023 NoteUTP CARDIOLOGY PROGRESS NOTE HPI: [...] diet, regular exercise Diastolic heart failure (CMS/HCC) [facility] II (more content not included)...[facility]03-28-2023 Evaluation note* Encounter Date Diagnosis Assessment Notes [...] treatment plan. Patient left in stable condition. [facility] Other 11-14-2022 Evaluation note* Encounter Date Diagnosis [...] no improvement in 2 to 3 days. [facility] Other 11-06-2022 Evaluation note* Encounter Date Diagnosis [...] and rest, Tylenol/Motrin as directed, rx of [place] and Flonase, cool mist humidifier, throat lozenges. [...] condition Aug, Sore throat (ICD-10 - J02.9) [facility] Other 01-11-2022 Evaluation note* Encounter Date Diagnosis [...] Other specified postprocedural states (ICD-10 - Z98.890) 11 Oct, 2021 Encounter for remova l of sutures (ICD-10 - Z48.02) [facility] Other 12-27-2021 Evaluation note* Encounter Date Diagnosis Assessment Notes Treatment Notes Treatment Clinical Notes Sep, Other specified postprocedural states (ICD-10 - Z98.890) [facility] Other 10-28-2021 Evaluation note* Encounter Date Diagnosis [...] outcome. Jul, Pre-op exam (ICD-10 - Z01.818) [facility] Other Evaluation + Plan note No data available for this section General Surgery [place] Evaluation noteNo InformationNort [employer] Other Evaluation note* Diagnosis Onset Date Resolution Status Admit Date Contact with or suspected exposure to severe acute respiratory syndrome noneactive November 9:13am Sore throat noneactive November 26, 2024 9:13am [facility] Work Phone: History general Narrative - Reported* Type Description Date Medical History Hypertension Medical History hypercholesterolemia Medical History urinary frequency Medical History acid reflux Medical History Arthritis Medical History pre diabetic Surgical History knee surgery 2011 Surgical History tubal ligation Surgical History ankle surgery Hospitalization History see above surgical histo [facility] Other [facility] general Narrative - Reported* Type Description Date Medical History Hypertension Medical History hypercholesterolemia Medical History urinary frequency Medical History acid reflux Medical History Arthritis Medical History pre diabetic Surgical History knee surgery 2010 Surgical History tubal ligation Surgical History ankle surgery Surgical History gastric bypass Hospitalization History see above surgical histo [facility] Other Hisnbgw general Narrative - Reported* Type Description Date Medical History Hypertension Medical History hypercholesterolemia Medical History urinary frequency Medical History acid reflux Medical History Arthritis Medical History pre diabetic Surgical History knee surgery 2010 Surgical History tubal ligation Surgical History ankle surgery Surgical History gastric bypass Surgical History right elbow Surgical History carpal tunnel Hospitalization History see above surgical [facility] Discharge instructions No data available for this section General Surgery [place] Progress note No data available for this section General Surgery [place] Summary Purpose Family History Relationship Condition Age at Onset Recorded Date/T rj Not Specified No pertinent family history Unknown brother Unknown father Unknown family member Unknown mother Unknown Advance Directives Advance Directive Response Recorded Date/ Time Advance Directives No March 07 9:08am Chief Complaint and Reason for Visit Chief Complaint Admit Date Unknown October 16, 2024 7:54am Sore throat, cough November 26, 2024 9 :13am Reason for Visit Admit Date Contact with or suspected ex posure to severe acute respiratory syndrome November 26, 2024 9:13am Sore throat November 26, 2024 9 :13am Additional Source Comments INFORMATION SOURCE (unrecogn ized section and content) DATE CREATED AUTHOR 12/20/2018 [facility] DATE CREATED AUTHOR AUTHOR'S ORGANIZ ATION 02/04/2020 [facility] DATE CREATED AUTHOR AUTHOR'S ORGANIZ ATION 08/27/2021 [facility] DATE CREATED AUTHOR AUTHOR'S ORGANIZ ATION 08/29/2021 [facility] DATE CREATED AUTHOR AUTHOR'S ORGANIZ ATION 03/07/2023 [facility] DATE CREATED AUTHOR AUTHOR'S ORGANIZ ATION 04/26/2023 Duglas Woodall [facility] DATE CREATED AUTHOR AUTHOR'S ORGANIZ ATION 01/18/2024 [facility] DATE CREATED AUTHOR AUTHOR'S ORGANIZ ATION 10/19/2024 [facility] <item> Privacy Markings (unrecogniz ed section and [...] team informatio n (unrecognized section and content) Team Status: Active Member Role Status Dates Winston Sotelo MD Primary Care Provider Active Team Status: Inactive Member Role Status Dates Winston Sotelo MD Attending Provider Active Sta rt: October 16, 2024 End: October 16, 2024 Team Status: Inactive Member Role Status Dates Melvi Vega APRN Attending Provider Active S tart: November 26, 2024 End: November 26, 2024 Winston Sotelo MD Primary Care Provider Active Start: November 26, 2024 End: November 26, 2024 Goals (unrecognized section and content) Goals may be documented in a n alternate section FOR RECORDS PERTAINING TO PATIENTS WHO ARE [...] BE BASED ON THE PRIMARY CLINICAL RECORDS. [facility] [employer] [facility]. provides no warranty or guarantee of the accuracy or completeness of information in this document.
[2024-11-29 14:51] LABS: Troponin I High Sensitivity 8.5 pg/mL (4.0-51.3)
[2024-11-29] MEDS: ONDANSETRON PF 4 MG/2 ML VIAL IV (15:00)
[2024-11-29 15:04] VITALS: BP 122/69; PULSE 61; O2SAT 100
--- NOTE | 2024-11-29 15:09 | ED.NAVMDI1 ---
HPI - Nausea/Vomiting/Diarrhea General Chief complaint: Nausea/Vomiting/Diarrhea Stated complaint: COUGH, WEAK, NAUSEA Time Seen by Provider: 11/29/24 14:12 Source: patient Mode of arrival: Wheelchair History of Present Illness HPI Narrative: The patient is coming to the ER with 1 week history of coughing associated with phlegm production, she mentioned that only today she started having nausea and vomiting and diarrhea she had at least 3 bouts of diarrhea before arrival. And she had a vomiting earlier Patient denies any chest pain any difficulty breathing The patient presented to urgent care few days ago when she was tested for flu and it was found negative and she also tested herself at home for COVID and was negative Related Data Home Medications ?Medication ?Instructions ?Recorded ?Confirmed aspirin 81 mg tablet,delayed 81 mg PO DAILY 04/03/23 04/11/23 release atorvastatin 80 mg tablet 80 mg PO DAILY 04/03/23 04/03/23 celecoxib 200 mg capsule (Celebrex) 200 mg PO DAILY 04/03/23 04/11/23 docusate sodium 100 mg capsule 100 mg PO BID 04/03/23 04/03/23 (Colace) ferrous sulfate 325 mg (65 mg 325 mg PO BID 04/03/23 04/03/23 iron) tablet hydroxyzine HCl 25 mg tablet 25 mg PO .hs PRN insomnia 04/03/23 04/03/23 linaclotide 72 mcg capsule 72 mcg PO QAM 04/03/23 04/03/23 (Linzess) lisinopril 40 mg tablet 40 mg PO DAILY 04/03/23 04/03/23 multivitamin (Daily Value tablet) 1 tab PO QAM 04/03/23 04/03/23 oxybutynin chloride 10 mg PO .qd 04/03/23 04/03/23 pantoprazole 40 mg tablet,delayed 40 mg PO BID 04/03/23 04/03/23 release Previous Rx's ?Medication ?Instructions ?Recorded benzonatate 100 mg capsule 100 mg PO TID PRN cough #14 caps 11/29/24 ondansetron 4 mg disintegrating 4 mg PO Q8H PRN nausea and 11/29/24 tablet vomiting 48 hours #10 tabs Allergies Allergy/AdvReac Type Severity Reaction Status Date / Time Latex, Natural Rubber AdvReac Mild Verified 04/03/23 14:15 Review of Systems ROS Status of ROS 10 or more systems reviewed and unremarkable except as noted in history and below [facility] Medical History (Updated 11/29/24 @ 15:55 by Courtney Kohler MD) Uterine prolapse ?N81.4 - Uterovaginal prolapse, unspecified (ICD-10) Menopausal state ?N95.1 - Menopausal and female climacteric states (ICD-10) Vitamin D deficiency ?E55.9 - Vitamin D deficiency, unspecified (ICD-10) Varicose veins of both lower extremities ?I83.93 - Asymptomatic varicose veins of bilateral lower extremities (ICD-10) Smoker ?F17.200 - Nicotine dependence, unspecified, uncomplicated (ICD-10) Morbid obesity ?E66.01 - Morbid (severe) obesity due to excess calories (ICD-10) Low back pain syndrome ?M54.50 - Low back pain, unspecified (ICD-10) Iron deficiency anemia ?D50.9 - Iron deficiency anemia, unspecified (ICD-10) HTN (hypertension) ?I10 - Essential (primary) hypertension (ICD-10) GERD (gastroesophageal reflux disease) ?K21.9 - Gastro-esophageal reflux disease without esophagitis (ICD-10) Eczema ?L30.9 - Dermatitis, unspecified (ICD-10) Venous insufficiency ?I87.2 - Venous insufficiency (chronic) (peripheral) (ICD-10) Cervical stenosis of spinal canal ?M48.02 - Spinal stenosis, cervical region (ICD-10) CAD (coronary artery disease) ?I25.10 - Atherosclerotic heart disease of [place] coronary artery without angina pectoris (ICD-10) Anxiety ?F41.9 - Anxiety disorder, unspecified (ICD-10) Anemia ?D64.9 - Anemia, unspecified (ICD-10) Surgical History (Updated 04/03/23 @ 13:17 by Jesenia Sams RN) S/P lateral meniscal repair ?Z98.890 - Other specified postprocedural states (ICD-10) H/O tubal ligation ?Z98.51 - Tubal ligation status (ICD-10) H/O elbow surgery ?Z98.890 - Other specified postprocedural states (ICD-10) History of carpal tunnel release ?Z98.890 - Other specified postprocedural states (ICD-10) H/O gastric sleeve ?Z90.3 - Acquired absence of stomach [part of] (ICD-10) Family History (Updated 04/03/23 @ 13:19 by Jesenia Sams RN) Mother Cardiac disease Father Family history of cancer Social History (Updated 04/03/23 @ 14:43 by Jesenia Sams RN) Within the past year, how often did you have a drink containing alcohol: 2-4 times a month Within the past year, how many standard drinks containing alcohol did you have on a typical day: 1 or 2 Within the past year, how often did you have six or more drinks on one occasion: less than monthly Total score: 1 Score interpretation: A score of 3 or more indicates drinking is likely to affect patient's safety. 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 General: Well-appearing and in no apparent distress. Skin: Warm, dry, no pallor noted. No rash. Head: Normocephalic, atraumatic. Neck: Supple, non-tender. Eye: Pupils are equal, round and EOMI. No scleral icterus. Ears, Nose, Mouth, and Throat: TM are clear, no nasal mucosal hypertrophy. Oral mucosa is moist, no posterior oropharynx erythema, uvula is mid-line Cardiovascular: Regular Rate and Rhythm without murmur, gallop or rub. Respiratory: No accessory muscle use or respiratory distress. Lungs are clear to auscultation, no wheezing, rales or rhonchi Chest Wall: no tenderness Back: No midline thoracic or lumbar vertebral tenderness. No CVA tenderness Musculoskeletal: normal ROM, no calf or popliteal tenderness, no lower extremity edema/swelling GI: Abdomen is soft, non-distended. Normal bowel sounds. No masses appreciated. No tenderness to palpation. No rebound, guarding, or rigidity noted. Neurological: A&O x4. No cranial nerve dysfunction observed. No truncal ataxia. Moves all extremities. Sensation intact. Psychiatric: Cooperative and interactive. Normal mood and affect. Constitutional Vital Signs, click to edit/add: Last Vital Signs Temp 98.2 F 11/29/24 14:06 Pulse 61 11/29/24 15:04 Resp 18 11/29/24 15:04 BP 122/69 11/29/24 15:04 Pulse Ox 100 11/29/24 15:04 O2 Del Method Room Air 11/29/24 14:06 Course Vital Signs Vital signs: Vital Signs Temperature 98.2 F 11/29/24 14:06 Pulse Rate 85 11/29/24 14:06 Respiratory Rate 18 11/29/24 14:06 Blood Pressure 126/90 11/29/24 14:06 Pulse Oximetry 95 11/29/24 14:06 Oxygen Delivery Method Room Air 11/29/24 14:06 Temperature 98.2 F 11/29/24 14:06 Pulse Rate 61 11/29/24 15:04 Respiratory Rate 18 11/29/24 15:04 Blood Pressure 122/69 11/29/24 15:04 Pulse Oximetry 100 11/29/24 15:04 Oxygen Delivery Method Room Air 11/29/24 14:06 MDM - Nausea/Vomiting/Diarrhea MDM Narrative Medical decision making narrative: The patient EKG showing sinus rhythm with a heart rate of [address] elevation or depression Chest x-ray showed no acute pathology and the patient CBC and chemistry showed mild leukopenia which mostly correlated with possible viral infections The patient is feeling much better after being treated with IV fluid and as well as Zofran in the ER She was discharged home to continue supportive care she was provided with a Tesalon alex prescription as well as a Zofran The patient is to follow up with primary care physician in next 2-3 days or to return to the emergency department should any of the signs or symptoms worsen or new symptoms develop. The patient agrees with the following Diagnosis and Treatment plan and the patient will be discharged home. Lab Data Labs: Lab Results 11/29/24 Range/Units 14:27 WBC 3.3 L (4.0-11.0) 10^3/uL RBC 3.39 L (4.20-5.40) 10^6/uL Hgb 11.0 L (12.0-16.0) g/dL Hct 33.6 L (36.0-48.0) % MCV 99.1 H (81.0-99.0) fL MCH 32.4 (26.7-34.0) pg MCHC 32.7 (29.9-35.2) g/dL RDW 13.1 (11.0-15.0) % Plt Count 151 (150-450) 10^3/uL MPV 9.4 L (9.5-13.5) fL Neut % (Auto) 47.3 (43.0-75.0) % Lymph % (Auto) 41.0 (20.5-60.0) % Carson % (Auto) 10.5 (1.7-12.0) % Eos % (Auto) 0.6 L (0.9-7.0) % Baso % (Auto) 0.3 (0.2-2.0) % Neut # (Auto) 1.6 (1.4-6.5) 10^3/uL Lymph # (Auto) 1.4 (1.2-3.8) 10^3/uL Carson # (Auto) 0.4 (0.3-0.8) 10^3/uL Eos # (Auto) 0.0 (0.0-0.7) 10^3/uL Baso # (Auto) 0.0 (0.0-0.1) 10^3/uL Abs Immat Gran (auto) 0.01 (0.00-0.03) 10^3/uL Imm/Tot Granulo (auto) 0.3 (0.0-0.5) % Sodium 139 (136-145) mmol/L Potassium 4.8 (3.5-5.1) mmol/L Chloride 104 (98-107) mmol/L Carbon Dioxide 26.7 (21.0-32.0) mmol/L Anion Gap 13.1 BUN 28.0 H (7.0-18.0) mg/dL Creatinine 1.05 H (0.55-1.02) mg/dL Est GFR ( Amer) >60 (>=60 mL/min/1.73m^2) Est GFR (Non-Af Amer) 53 L (>=60 mL/min/1.73m^2) BUN/Creatinine Ratio 26.7 Glucose 93 (74-106) mg/dL Calcium 8.5 (8.5-10.1) mg/dL Total Bilirubin 0.3 (0.2-1.0) mg/dL AST 66 H (15-37) U/L ALT 65 H (14-59) U/L Alkaline Phosphatase 53 (46-116) U/L Troponin I High Sens 8.5 (4.0-51.3) pg/mL Total Protein 7.0 (6.4-8.2) g/dL Albumin 3.3 L (3.4-5.0) g/dL Globulin 3.7 g/dL Albumin/Globulin Ratio 0.9 Discharge Plan Discharge Chief Complaint: Nausea/Vomiting/Diarrhea Clinical Impression: Acute viral syndrome, Gastroenteritis Patient Disposition: Home, Self-Care Time of Disposition Decision: 15:55 Condition: Good Prescriptions / Home Meds: New benzonatate 100 mg capsule 100 mg PO TID PRN (Reason: cough) Qty: 14 0RF ondansetron 4 mg tablet,disintegrating 4 mg PO Q8H PRN (Reason: nausea and vomiting) 2 Days Qty: 10 0RF No Action aspirin 81 mg tablet,delayed release (DR/EC) 81 mg PO DAILY celecoxib [Celebrex] 200 mg capsule 200 mg PO DAILY Patient Comments: instructed patient to stop on 04/06/2023 docusate sodium [Colace] 100 mg capsule 100 mg PO BID ferrous sulfate 325 mg (65 mg iron) tablet 325 mg PO BID hydroxyzine HCl 25 mg tablet 25 mg PO .hs PRN (Reason: insomnia) Linzess 72 mcg capsule 72 mcg PO QAM lisinopril 40 mg tablet 40 mg PO DAILY multivitamin [Daily Value] Tablet 1 tab PO QAM oxybutynin chloride 10 mg PO .qd Rx Instructions: 10 orally; pantoprazole 40 mg tablet,delayed release (DR/EC) 40 mg PO BID atorvastatin 80 mg tablet 80 mg PO DAILY Print Language: Malay Instructions: Gastroenteritis (ED), Viral Syndrome (ED) Referrals: Reginaldo Crane MD [Primary Care Provider] - 1 week Discharge Date/Time: 11/29/24 16:04
== END 2024-11-29 16:04 | disposition home or self-care (01) ==
PROVIDERS: Emergency Provider Emergency Medicine; PCP Family Medicine
DX: K52.9 Noninfective gastroenteritis and colitis, unspecified (principal); B34.9 Viral infection, unspecified; Z98.51 Tubal ligation status; Z87.891 Personal history of nicotine dependence; Z98.84 Bariatric surgery status
CPT/HCPCS: 36415; 71045; 80053; 84484; 85025; 93005; 96361; 96374; 99285; J2405

== ENCOUNTER 2024-12-15 16:48 | Outpatient (REF) | payer OTHER, SELFPAY ==
--- OUTSIDE RECORDS SUMMARY | 2024-12-15 17:02 | XMS_ITS | CCD ---
Author Organization [facility] CliniSyor Care Team Providers Care Surgical Attendant Name Role Phone ISAAC LAROSE Referring Unavailable [...] Admitting Unavailable Winston Sotelo MD Attending Provider [phone] Allergies Allergy Classification Reported Allergen(s) Allergy Type Date of Onset Reaction(s) Facility (1 source) Cat Angioedema [facility] (1 source) DrugAllergiesUnable to Obtain [facility] Comment on above: Pharmacy/MD office jackelyn de souza (5 sources) Latex; Translations: [latex] Drug allergy 3 lips [facility] Medications Current Medications Medication Drug Class(es) Dates Sig (Normalized) Sig (Original) acetaminophen 500 mg oral tablet (9 sources) Start: 11-26-2024 take 2 tablets by mouth three times daily Acetaminophen 500 mg tablet Active 1000 MG PO Three times daily November 26, 2024 12:00am Tylenol Active [id number] 200 actuat albuterol 0.09 mg/actuat metered dose [...] 1.5 mg/ml oral solution (2 sources) Uncompetitive L-vosgai-G-aspartat e Receptor Antagonist, Sigma-1 Agonist Start: 08-27-2022 take 10 mL by mouth every eight hours Fults DM 7.5-7.5 MG/5ML 10 mL Orally every 8 hours for 5 days Aug, Active docusate sodium 100 mg oral tablet (3 sources) Start: 11-26-2024 Docusate Sodium 100 mg capsule Active MG PO November 26, 2024 12:00am Start: 02-09-2023 take 1 capsule by [facility] twice daily as needed for constipation Colace [...] 12:00am Start: 02-09-2023 take 1 tablet by [facility] twice daily ferrous sulfate 325 mg [...] Coronary arteriosclerosis; Translations: [Atherosclerotic heart disease of [place] coronary artery without angina pectoris] Onset: 07-04-2022 [...] Melvi Vega on 11-26-2024 Quick Strep (POC) [facility] Urine Cultureon 10-16-2024 Bacteria identified Cx Nom (U) 15,000 colonies/ml mixed bacterial skin contaminants 2 Days PERFORMED BY: [place] [address] PATHOLOGIST TESTBOARD OPERATOR SHERYL REGALADO M.D. Normal [facility] Comment on above: Performed By: #### C UU #### [address] Urine cultureOrdered By: Brandon Sotelo on 10-16-2024 Bacteria identified Cx Nom (U) Urine culture [facility] Office Visiton 01-16-2024 Follow-up visit [id number] Jackelyn Lujan 1965 F Date Provider Department Center 01/16/2024 271-TATUM NOAB BH CARD Phyllis Schilling No family history on file Level of Service:33576 [place] OFFICE/OUTPATIENT ESTABLISHED MOD MDM 30 MIN Normal [facility] Braden 12-18-2023 L Specimen: [id number] Re ceived: 12/19/23 Status: SOULudmila Req Num: [id number] Spec Type: Impression Subm Dr: Winston Sotelo MD Tissues: PATHPER Procedures: PATHREVIEW Age/ Patient Sex Location Account Attending Physician Pallavi Lujan 58/F [place] [id number] Winston Sotelo MD SPEC NUM: [id number] RECD: 12/19/23 STATUS: SOUT REQ NUM: [id number] JEREMIE: 12/18/[address]: Winston Sotelo MD ENTERED: 12/19/[address]: Rebecca Ferguson SPEC TYPE: Impression DEPT: INOCENTE Terry ENTERED BY: [id number] RECV BY: [id number] ORDERED: PATHREVIEW ORDERED: PATHREVIEW Pathologist Review Abnormal [...] antineoplastics. Clinical correlation is therefore suggested CPT: 07195 CBC No results available. Specimen: [id number] Received: 12/19/23-1239 Status: DOMINIC Mancia Num: [id number] Spec Type: Impression Subm Dr: Winston Sotelo MD Tissues: PATHPER Procedures: PATHREVIEW Patient: Pallavi Lujan [id number] (Continued) Signed (signature on file) Krystal Leahy MD 12/21/231922 Normal [facility] Ambulatory Visit Summaryon 0 04-25-2023 [...] treatment for. Arthritis Numbness Normal Duglas [facility] General Surgery Office/Clini c Noteon 04-25-2023 [...] SARS-CoV-2 (COVID-19) mRNA-1273 vaccine 04/19/2021 Recorded Normal [facility] Comment on above: Result Comment: Elec tronically Signed By: ANNABEL BERRY, David Joyce\Date and Time Signed: 04/25/23 16:13 EDT Pathology Noteon 04-16-2023 Pathology Note [id number]#[id number]:127 [facility] Outside Colonoscopyon 2022 Outside Colonoscopy [id number]#1.00CD:127 [facility] Reminderson 04-12-2023 Reminders - From: Myra Escobedo LPN To: N - Clinical; Sent: 04/12/2023 13:58:02 EDT Show up: 03/11/2033 07:00:00 EDT Subject: colonoscopy recall Due Date/Time: 04/11/2033 07:00:00 EDT Reminder/Recall Patient due for screening colonoscopy 04/11/2033. [facility] Pre-Certification Formon Pre-Certification Form [id number]#[id number]:127 [facility] Consent for Procedure/Surger yon 02-16-2023 Consent for Procedure/Surgery [id number]#1.00CD:127 [facility] Facesheeton 02-15-2023 Facesheet [id number]#1.00CD:127 [facility] Ambulatory Visit Summaryon 0 02-14-2023 Ambulatory Visit [...] longer receiving treatment for. Arthritis Numbness Normal [facility] Physician Referralon 023 Physician Referral [id number]#[id number]:127 Normal [facility] Office Visiton 01-19-2023 Follow-up visit [id number] Jackelyn Lujan 1965 F Date Provider Department Center 01/19/2023 120-LAUREEN DAVENPORT BH CARD Phyllis Hos No family history on file Level of Service:96828 [place] OFFICE/OUTPATIENT ESTABLISHED MOD MDM 30-39 MIN Reason for Visit and Comments: Follow-up [593533] - Yearly Palpitations [] - Went away w/ stopping coffee Normal [facility] INSULINon 01-17-2023 Insulin 7.1 uIU/mL Normal 2.6-24.9 [facility] Comment on above: Performed By: #### I NSULIN #### [facility] [address] [address] [address] Demetri Leahy CBC AUTO DIFFon 01-16-2023 BASO # 0.0 103/ul Normal 0.0-0.1 [facility] Comment on above: Performed By: #### C BC #### [facility] [address] [place] [address] Dr. Demetri Leahy Basophils/100 WBC (Bld) 0.7 % Normal 0.2-2.0 [facility] Comment on above: Performed By: #### C BC #### [facility] [address] [place] [address] Dr. Demetri Leahy EO # 0.1 103/ul Normal 0.0-0.7 [facility] Comment on above: Performed By: #### C BC #### [facility] [address] [place] [address] Dr. Demetri Leahy Eosinophils/100 WBC (Bld) 2.4 % Normal 0.9-7.0 [facility] Comment on above: Performed By: #### C BC #### [facility] [address] [place] [address] Dr. Demetri Leahy Erythrocyte distribution width (RBC) [Ratio] 12.9 % Normal 11.0-15.0 [facility] Comment on above: Performed By: #### C BC #### [facility] [address] [place] [address] Dr. Demetri Leahy Hematocrit (Bld) [Volume fraction] 32.3 % Critically low 36.0-48.0 [facility] Comment on above: Performed By: #### C BC #### [facility] [address] [place] [address] Dr. Demetri Leahy Hemoglobin (Bld) [Mass/Vol] 10.5 g/dL Critically low 12.0-16.0 [facility] Comment on above: Performed By: #### C BC #### [facility] [address] [place] [address] Dr. Demetri Leahy IG # 0.01 10e3/ul Normal 0.00-0.03 [facility] Comment on above: Performed By: #### C BC #### [facility] [address] [place] [address] Dr. Demetri Leahy IG % 0.2 % Normal 0.0-0.5 [facility] Comment on above: Performed By: #### C BC #### [facility] [address] [place] [address] Dr. Demetri Leahy LYMPH # 1.3 103/ul Normal 1.2-3.8 [facility] Comment on above: Performed By: #### C BC #### [facility] [address] [place] [address] Dr. Demetri Leahy Lymphocytes/100 WBC (Bld) 21.9 % Normal 20.5-60.0 [facility] Comment on above: Performed By: #### C BC #### [facility] [address] [place] [address] Dr. Demetri Leahy MANUAL DIFF REQ NO Normal [facility] Comment on above: Performed By: #### C BC #### [facility] [address] [place] [address] Dr. Demetri Leahy MCH (RBC) [Entitic mass] 31.4 pg Normal 26.7-34.0 [facility] Comment on above: Performed By: #### C BC #### [facility] [address] [place] [address] Dr. Demetri Leahy MCHC (RBC) [Mass/Vol] 32.5 g/dL Normal 29.9-35.2 [facility] Comment on above: Performed By: #### C BC #### [facility] [address] [place] [address] Dr. Demetri Leahy MCV (RBC) [Entitic vol] 96.7 fL Normal 81.0-99.0 [facility] Comment on above: Performed By: #### C BC #### [facility] [address] [address] [address] Demetri Leahy MONO # 0.6 103/ul Normal 0.3-0.8 [facility] Comment on above: Performed By: #### C BC #### [facility] [address] [address] [address] Demetri Leahy Monocytes/100 WBC (Bld) 9.9 % Normal 1.7-12.0 [facility] Comment on above: Performed By: #### C BC #### [facility] [address] [place] [address] Dr. Demetri Leahy NEUT # 3.9 103/ul Normal 1.4-6.5 [facility] Comment on above: Performed By: #### C BC #### [facility] [address] [place] [address] Dr. Demetri Leahy Neutrophils/100 WBC (Bld) 64.9 % Normal 43.0-75.0 [facility] Comment on above: Performed By: #### C BC #### [facility] [address] [place] [address] Dr. Demetri Leahy Platelet mean volume (Bld) [Entitic vol] 9.0 fL Critically low 9.5-13.5 [facility] Comment on above: Performed By: #### C BC #### [facility] [address] [place] [address] Dr. Demetri Leahy PLT 210 103/ul Normal 150-450 [facility] Comment on above: Performed By: #### C BC #### [facility] [address] [place] [address] Dr. Demetri Leahy RBC 3.34 106/ul Critically low 4.20-5.40 [facility] Comment on above: Performed By: #### C BC #### [facility] [address] [place] [address] Dr. Demetri Leahy WBC 5.9 103/ul Normal 4.0-11.0 [facility] Comment on above: Performed By: #### C BC #### [facility] [address] [place], [place] [id number] Dr. Demetri Leahy FREE THYROXINE INDEX T7on FTI 2.05 Normal 1.30-4.50 [facility] Comment on above: Performed By: #### T 7, TSH, LIPID, CMP #### [facility] [address] [place] [address] Dr. Demetri Leahy T3U 36.0 % Normal 30.0-39.0 [facility] Comment on above: Performed By: #### T 7, TSH, LIPID, CMP #### [facility] [address] [place] [address] Dr. Demetri Leahy T4 [Mass/Vol] 5.70 ug/dL Normal 4.80-13.90 [facility] Comment on above: Performed By: #### T 7, TSH, LIPID, CMP #### [facility] [address] [place] [address] Dr. Demetri Leahy GLYCOHEMOGLOBIN A1Con 2022 ADA RECOMMENDATION SEE BELOW Normal [facility] Comment on above: Result Comment: ADA RECOMMENDED LIMIT 4.0 - 6.0 ADA THERAPEUTIC TARGET < 7.0 ACTION SUGGESTED > 7.0 Performed By: #### A 1C #### [facility] [address] [place] [address] Dr. Demetri Leahy Glucose [Mass/Vol] 88 mg/dL Normal [facility] Comment on above: Performed By: #### A 1C #### [facility] [address] [place] [address] Dr. Demetri Leahy HbA1c (Bld) [Mass fraction] 4.7 % Normal 4.5-6.2 [facility] Comment on above: Performed By: #### A 1C #### [facility] [address] [place] [address] Dr. Demetri Leahy IRONon 01-16-2023 Iron [Mass/Vol] 41.0 ug/dL Critically low 50.0-170.0 [facility] Comment on above: Performed By: #### I BRYAN #### [facility] [address] [place] [address] Dr. Demetri Leahy LIPID PROFILEon 01-16-2023 CHOL-HDL RATIO NORM SEE BELOW Normal [facility] Comment on above: Result Comment: 3.3 - 4.4 LOW RISK 4.4 - 7.1 AVERAGE RISK 7.1 - 11.0 MODERATE RISK >11.0 HIGH RISK Performed By: #### T 7, TSH, LIPID, CMP #### [facility] [address] [place] [address] Dr. Demetri Leahy Cholesterol [Mass/Vol] 145 mg/dL Normal <=200 [facility] Comment on above: Performed By: #### T 7, TSH, LIPID, CMP #### [facility] [address] [place] [address] Dr. Demetri Leahy Cholesterol in HDL [Mass/Vol] 71 mg/dL Critically high 40-60 [facility] Comment on above: Performed By: #### T 7, TSH, LIPID, CMP #### [facility] [address] [place] [address] Dr. Demetri Leahy Cholesterol in LDL [Mass/Vol] 42.4 mg/dL Normal [facility] Comment on above: Performed By: #### T 7, TSH, LIPID, CMP #### [facility] [address] [address] [address] Demetri Leahy Cholesterol.total/Ch olesterol in HDL [Mass ratio] 2.0 {ratio} Normal [facility] Comment on above: Performed By: #### T 7, TSH, LIPID, CMP #### [facility] [address] [address] [address] Demetri Leahy HDL NORMAL > or = 60 mg/dl - LO W CARDIOVASCULAR RISK <40 mg/dl - HIGH CARDIOVASCULAR RISK Normal [facility] Comment on above: Performed By: #### T 7, TSH, LIPID, CMP #### [facility] [address] [place] [address] Dr. Demetri Leahy LDL CALC NORMAL SEE BELOW Normal [facility] Comment on above: Result Comment: <100 mg/dl OPTIMAL 100 - 129 mg/dl NEAR OR ABOVE OPTIMAL 130 - 159 mg/dl BORDERLINE HIGH 160 - 189 mg/dl HIGH >190 mg/dl VERY HIGH Performed By: #### T 7, TSH, LIPID, CMP #### [facility] [address] [place] [address] Dr. Demetri Leahy Triglyceride [Mass/Vol] 158 mg/dL Critically high <=150 [facility] Comment on above: Performed By: #### T 7, TSH, LIPID, CMP #### [facility] [address] [place] [address] Dr. Demetri Leahy VLDL CALC 31.6 mg/dL Normal [facility] Comment on above: Performed By: #### T 7, TSH, LIPID, CMP #### [facility] [address] [place] [address] Dr. Demetri Leahy OCC BLD IMMUNO SCREENon 12-21 OCCULT BLOOD Negative Normal NEGATIVE [facility] Comment on above: Performed By: #### T 7, TSH, LIPID, CMP #### [facility] [address] [place] [address] Dr. Demetri eLahy PROF 14(COMP METB)on 023 Albumin [Mass/Vol] 3.8 g/dL Normal 3.4-5.0 [facility] Comment on above: Performed By: #### T 7, TSH, LIPID, CMP #### [facility] [address] [place] [address] Dr. Demetri Leahy Albumin/Globulin [Mass ratio] 1.2 {ratio} Normal [facility] Comment on above: Performed By: #### T 7, TSH, LIPID, CMP #### [facility] [address] [place] [address] Dr. Demetri Leahy ALP [Catalytic activity/Vol] 50 U/L Normal 46-116 [facility] Comment on above: Performed By: #### T 7, TSH, LIPID, CMP #### [facility] [address] [place] [address] Dr. Demetri Leahy ALT [Catalytic activity/Vol] 53 U/L Normal 14-59 [facility] Comment on above: Performed By: #### T 7, TSH, LIPID, CMP #### [facility] [address] [place] [address] Dr. Demetri Leahy Anion gap [Moles/Vol] 14.1 mmol/L Normal [facility] Comment on above: Performed By: #### T 7, TSH, LIPID, CMP #### [facility] [address] [address] [address] Demetri Leahy AST [Catalytic activity/Vol] 36 U/L Normal 15-37 [facility] Comment on above: Performed By: #### T 7, TSH, LIPID, CMP #### [facility] [address] [address] [address] Demetri Leahy Bilirubin [Mass/Vol] 0.4 mg/dL Normal 0.2-1.0 [facility] Comment on above: Performed By: #### T 7, TSH, LIPID, CMP #### [facility] [address] [place] [address] Dr. Demetri Leahy Calcium [Mass/Vol] 9.0 mg/dL Normal 8.5-10.1 [facility] Comment on above: Performed By: #### T 7, TSH, LIPID, CMP #### [facility] [address] [place] [address] Dr. Demetri Leahy Chloride [Moles/Vol] 109 mmol/L Critically high 98-107 [facility] Comment on above: Performed By: #### T 7, TSH, LIPID, CMP #### [facility] [address] [place] [address] Dr. Demetri Leahy CO2 [Moles/Vol] 28.0 mmol/L Normal 21.0-32.0 [facility] Comment on above: Performed By: #### T 7, TSH, LIPID, CMP #### [facility] [address] [place] [address] Dr. Demetri Leahy Creatinine [Mass/Vol] 0.79 mg/dL Normal 0.55-1.02 [facility] Comment on above: Performed By: #### T 7, TSH, LIPID, CMP #### [facility] [address] [place] [address] Dr. Demetri Leahy EGFR-AF INDONESIAN >60 Normal >=60 [facility] Comment on above: Performed By: #### T 7, TSH, LIPID, CMP #### [facility] [address] [address] [address] Demetri Leahy EGFR-NON AF INDONESIAN >60 Normal >=60 [facility] Comment on above: Performed By: #### T 7, TSH, LIPID, CMP #### [facility] [address] [address] [address] Demetri Leahy Globulin (S) [Mass/Vol] 3.3 g/dL Normal [facility] Comment on above: Performed By: #### T 7, TSH, LIPID, CMP #### [facility] [address] [address] [address] Demetri Leahy Glucose [Mass/Vol] 86 mg/dL Normal 74-106 [facility] Comment on above: Performed By: #### T 7, TSH, LIPID, CMP #### [facility] [address] [address] [address] Demetri Leahy Potassium [Moles/Vol] 4.1 mmol/L Normal 3.5-5.1 [facility] Comment on above: Performed By: #### T 7, TSH, LIPID, CMP #### [facility] [address] [address] [address] Demetri Leahy Protein [Mass/Vol] 7.1 g/dL Normal 6.4-8.2 [facility] Comment on above: Performed By: #### T 7, TSH, LIPID, CMP #### [facility] [address] [address] [address] Demetri Leahy Sodium [Moles/Vol] 147 mmol/L Critically high 136-145 [facility] Comment on above: Performed By: #### T 7, TSH, LIPID, CMP #### [facility] [address] [address] [address] Demetri Leahy Urea nitrogen [Mass/Vol] 30.0 mg/dL Critically high 7.0-18.0 [facility] Comment on above: Performed By: #### T 7, TSH, LIPID, CMP #### [facility] [address] [address] [address] Demetri Leahy Urea nitrogen/Creatinine [Mass ratio] 38.0 mg/mg Normal [facility] Comment on above: Performed By: #### T 7, TSH, LIPID, CMP #### [facility] [address] [address] [address] Demetri Leahy Quick Strepon 01-16-2023 S. pyogenes Org specific cx Ql (Throat) Negative [employer] Other Quick Strep [employer] Other TSHon 01-16-2023 TSH 1.389 uIU/mL Normal 0.358-3.74 0 [facility] Comment on above: Performed By: #### T 7, TSH, LIPID, CMP #### [facility] [address] [place], [place] [address] Dr. Demetri Leahy COVID/FLU RT-PCRon 2 SARS-CoV-2 (COVID-19) RNA KARTHIK+probe Ql (Unsp spec) Negative [employer] Other COVID/FLU RT-PCR Negative [employer] Other Quick Strepon 09-04-2022 S. pyogenes Org specific cx Ql (Throat) Negative [employer] Other [employer] Strep [employer] Other COVID/FLU RT-PCRon 2 SARS-CoV-2 (COVID-19) RNA KARTHIK+probe Ql (Unsp spec) Negative [employer] Other COVID/FLU RT-PCR Negative [employer] Other Quick Strepon 08-27-2022 S. pyogenes Org specific cx Ql (Throat) Negative [employer] Other [employer] Strep [employer] Other PROF CHEM 8 (BAS METB)on Anion gap [Moles/Vol] 13.6 mmol/L Normal [facility] Comment on above: Performed By: #### B MP #### [facility] [address] [address] [address] Demetri Leahy Calcium [Mass/Vol] 9.0 mg/dL Normal 8.5-10.1 [facility] Comment on above: Performed By: #### B MP #### [facility] [address] [place] [address] Dr. Demetri Leahy Chloride [Moles/Vol] 105 mmol/L Normal 98-107 [facility] Comment on above: Performed By: #### B MP #### [facility] [address] [address] [address] Demetri Leahy CO2 [Moles/Vol] 26.9 mmol/L Normal 21.0-32.0 [facility] Comment on above: Performed By: #### B MP #### [facility] [address] [place] [address] Dr. Demetri Leahy Creatinine [Mass/Vol] 1.04 mg/dL Critically high 0.55-1.02 [facility] Comment on above: Performed By: #### B MP #### [facility] [address] [place] [address] Dr. Demetri Leahy EGFR-AF INDONESIAN >60 Normal >=60 [facility] Comment on above: Performed By: #### B MP #### [facility] [address] [place] [address] Dr. Demetri Leahy EGFR-NON AF INDONESIAN 54 mL/min/1.73m2 Critically low >=60 [facility] Comment on above: Performed By: #### B MP #### [facility] [address] [address] [address] Demetri Leahy Glucose [Mass/Vol] 99 mg/dL Normal 74-106 [facility] Comment on above: Performed By: #### B MP #### [facility] [address] [place] [address] Dr. Demetri Leahy Potassium [Moles/Vol] 4.5 mmol/L Normal 3.5-5.1 [facility] Comment on above: Performed By: #### B MP #### [facility] [address] [place] [address] Dr. Demetri Leahy Sodium [Moles/Vol] 141 mmol/L Normal 136-145 [facility] Comment on above: Performed By: #### B MP #### [facility] [address] [address] [address] Demetri Leahy Urea nitrogen [Mass/Vol] 44.0 mg/dL Critically high 7.0-18.0 [facility] Comment on above: Performed By: #### B MP #### [facility] [address] [place] [address] Dr. Demetri Leahy Urea nitrogen/Creatinine [Mass ratio] 42.3 mg/mg Normal [facility] Comment on above: Performed By: #### B MP #### [facility] [address] [place] [address] Dr. Demetri Leahy PROF CHEM 8 (BAS METB)on Anion gap [Moles/Vol] 10.3 mmol/L Normal [facility] Comment on above: Performed By: #### B MP #### [facility] [address] [place] [address] Dr. Demetri Leahy Calcium [Mass/Vol] 8.6 mg/dL Normal 8.5-10.1 [facility] Comment on above: Performed By: #### B MP #### [facility] [address] [place] [address] Dr. Demetri Leahy Chloride [Moles/Vol] 107 mmol/L Normal 98-107 [facility] Comment on above: Performed By: #### B MP #### [facility] Laboratory [address] [place] [address] Dr. Demetri Leahy CO2 [Moles/Vol] 29.0 mmol/L Normal 21.0-32.0 [facility] Comment on above: Performed By: #### B MP #### [facility] [address] [place] [address] Dr. Demetri Leahy Creatinine [Mass/Vol] 1.42 mg/dL Critically high 0.55-1.02 [facility] Comment on above: Performed By: #### B MP #### [facility] [address] [place] [address] Dr. Demetri Leahy EGFR-AF INDONESIAN 46 mL/min/1.73m2 Critically low >=60 [facility] Comment on above: Performed By: #### B MP #### [facility] [address] [address] [address] Demetri Leahy EGFR-NON AF INDONESIAN 38 mL/min/1.73m2 Critically low >=60 [facility] Comment on above: Performed By: #### B MP #### [facility] [address] [address] [address] Demetri Leahy Glucose [Mass/Vol] 91 mg/dL Normal 74-106 [facility] Comment on above: Performed By: #### B MP #### [facility] [address] [address] [address] Demetri Leahy Potassium [Moles/Vol] 5.3 mmol/L Critically high 3.5-5.1 [facility] Comment on above: Performed By: #### B MP #### [facility] [address] [address] [address] Demetri Leahy Sodium [Moles/Vol] 141 mmol/L Normal 136-145 [facility] Comment on above: Performed By: #### B MP #### [facility] [address] [address] [address] Demetri Leahy Urea nitrogen [Mass/Vol] 48.0 mg/dL Critically high 7.0-18.0 [facility] Comment on above: Performed By: #### B MP #### [facility] [address] [address] [address] Demetri Leahy Urea nitrogen/Creatinine [Mass ratio] 33.8 mg/mg Normal [facility] Comment on above: Performed By: #### B MP #### [facility] [id number] Demetri Leahy BN ELBOW COMPLETE MIN. 3 VIE Ramsey 07-10-2021 BN ELBOW COMPLETE MIN. 3 VIEWS Patient Name: PALLAVI LUJAN STUDY: ELBOW COMPLETE MIN 3 VIEWS Left INDICATION: L elbow trauma. COMPARISON: None ACCESSION NUMBER(S): [id number] ORDERING CLINICIAN: JACQUELINE ROBLES FINDINGS: Heterotopic ossification adjacent to the medial epicondyle of the distal humerus suggesting either chronic epicondylitis or remote injury. No acute fracture dislocation. IMPRESSION: Heterotopic ossification adjacent to the medial epicondyle of the distal humerus suggesting either chronic epicondylitis or remote injury. Electronically signed by: DOLORES PRICE MD Normal [facility] BN KNEE; COMPLT, 4 OR MORE V IEWSon 07-10-2021 BN KNEE; COMPLT, 4 OR MORE VIEWS Patient Name: PALLAVI LUJAN STUDY: KNEE; COMPLT, 4 OR MORE VIEWS INDICATION: knee injury after fall. COMPARISON: None ACCESSION NUMBER(S): [id number] ORDERING CLINICIAN: ADELSO LUTHER FINDINGS: Mild osteoarthritis right knee with small posterior loose body. Remote posttraumatic changes from prior MCL injury with heterotopic ossification. No acute fracture or osseous abnormality otherwise. IMPRESSION: Mild osteoarthritis right knee with small posterior loose body. Remote posttraumatic changes from prior MCL injury with heterotopic ossification. Electronically signed by: DOLORES PRICE MD Normal [facility] NR CT C-SPINE WO CONTRASTon 07-10-[address] C-SPINE WO CONTRAST Patient Name: PALLAVI LUJAN STUDY: CT HEAD WO CONTRAST; CT C-SPINE WO CONTRAST; 07/10/2021 6:48 pm INDICATION: intox, head trauma, Lie Flat: Yes; fall at [employer] game, neck pain, Lie Flat: Yes COMPARISON: None. ACCESSION NUMBER(S): [id number]; [id number] ORDERING CLINICIAN: JACQUELINE ROBLES; ADELSO LUTHER TECHNIQUE: [...] This study was interpreted at [facility], [place], [place]. Electronically signed by: DO Omari REED [facility] NR CT HEAD WO CONTRASTon NR CT HEAD WO CONTRAST Patient Name: PALLAVI LUJAN STUDY: CT HEAD WO CONTRAST; CT C-SPINE WO CONTRAST; 07/10/2021 6:48 pm INDICATION: intox, head trauma, Lie Flat: Yes; fall at [employer] [address] game, neck pain, Lie Flat: Yes COMPARISON: None. ACCESSION NUMBER(S): [id number]; [id number] ORDERING CLINICIAN: JACQUELINE LUTHER TECHNIQUE: Axial noncontrast [...] This study was interpreted at [facility], [place], [place]. Electronically signed by: DO Omari REED [facility] Provider Note - ED v3on [...] without assoc (more content not included)... Normal [facility] Risk Screen - Adult Emergenc yon 07-10-2021 Risk Screen - Adult Emergency Preferred Language: Preferred Language: Preferred Language for Discussing Health Care (patient/designee)Greek Advanced Directives: Advance Directive/DNRno Advance Directive Information [...] Communicatenone Learning Preferencesaudio Cultural Considerationsnone Developmental Considerationsnone Confucianism Considerationsnone Other Learnersnone Learning Assessment (Other Learner): Learning Assessment (Other Learner): Other learner availableno Pressure Injury/TB/Substance: Pressure Injury: Pressure Injury Present on Admissionno Do you have a coughno Smoking Statusnever smoker (1) Alcohol Usedenies(1) Drug Usedenies (1) Drug 2 Usedenies (1) Admission Risk Screen: Significant IndicatorsComplete CAGE: CAGE: Is this an injured patient at a Trauma Center ([facility]): no Electronic Signatures: Uzma Menendez (CONSUELO) (Signed 10-Jul-2021 18:54) Authored: Preferred Language, Advanced Directives, Family Violence Adult, Learning Assessment (Patient), Learning Assessment (Other Learner), Pressure Injury/TB/Substance, Pressure Injury, CAGE Last Updated: 10-Jul-2021 18:54 by Uzma Menendez (CONSUELO) References: 1. Data Referenced From Provider Note - ED v3 10-Jul-2021 17:29 Normal [facility] Triage - EDon 07-10-2021 Triage [...] 10-Jul-2021 17:15 by Lazarus Gupta (CONSUELO) Normal [facility] Cardiovascular Lab Reporton 09-22-2020 Cardiovascular Lab Report [facility] Patient Name: Pallavi Lujan [facility] Gael MR #: [id number] Physician: Patrice No, Department of M.D. Medicine Service Date: 09/21/2020 Division of Birthdate: 1965 Cardiology Room #: [facility] Cardiovascular Services [place] [address] Cardiovascular Laboratory Report FINAL IMPRESSIONS: 1. Mild [...] right internal jugular vein was obtained. A 6-Marshallese 11 cm sheath was inserted without difficulty. [...] the right radial artery was obtained. A 6-Marshallese glide sheath was inserted without difficulty. Bilateral [...] No M.D. Date Trans: 09/22/2020 02:14 Fidencio/elma [id number] cc: Winston Sotelo M.D. [address] [id number] [facility] Danish GibsonFormerly [facility] [id number] [facility]01-[address]) PALLAVI LUJAN ([id number]) 1965 F Date Time Provider Department 02/01/20 ARLETTE HERNANDEZ ([place]) During your visit today, we recorded the following information about you: Arlette Hernandez PA-C, EUGENIA 02/01/2020 10:03 AM Signed Brant, Thank you for the referral, this patient meets criteria for COVID-19 testing in accordance with criteria found on the [facility] Intranet COVID19 Toolkit as of February 01, 2020 10:02 AM Please inform the patient that the test has been ordered, and that the [facility] Scheduling Department will call to schedule test [...] Fully Assessed Reason for Visit: Covid-19 Hotline [6579] Primary Visit Diagnosis:Suspected Covid-19 Virus Infection [R68.89] Order(s):2019 CORONAVIRUS [SQCOVID] Order #: [id number] [facility] COVID-19 HOME MONITORING [5519097] Order #: [id number] Prescriptions as of 02/01/2020 Sig: ATORVASTATIN 80 [...] [F43.9] More... Anxiety [F41.9] BMI 40.0-44.9, adult ([facility]) [Z68.41] Encounter Status:Closed by ARLETTE HERNANDEZ on 02/01/20 [facility] Telephone (BLAZE) PALLAVI LUJAN ([id number]) 1965 F Date Time Provider Department 02/01/20 DEBBIE BORGES (RN) BLAZE During your visit today, we recorded the following information about you: Debbie Borges RN, RN 02/01/2020 9:32 AM Signed Telephone Nurse Triage for Flu-like symptoms Patient evaluated by telephone nursing triage.patient seen at [facility] last nite.-Dx Bronchitis. zpak started and [...] with PCP. If no PCP, send to [facility]. Patient instructed to call back [...] acetaminophen overdose can hurt the liver. ? [employer], the company that makes Tylenol, has different dosage instructions for Tylenol in [place] and the [place]. In [place], the maximum recommended dose per day is 4,000 mg or twelve (12) Regular-Strength (325 mg) pills. In the [place], [employer] recommends a maximum dose of ten (10) Regular-Strength (325 mg) pills. ? Before taking any medicine, read all the instructions on the package. PATIENT INSTRUCTIONS: At present, these are our recommendations regarding the coronavirus (COVID-19) outbreak: - Wash your hands regularly for at least 20 seconds with soap and water, especially before eating. - If soap/water are unavailable, use a hand drawing in machine tender with at least 60% alcohol - Avoid [...] that you do not come to any [facility] facility without calling your primary care physician or speaking to a provider using a virtual visit using [facility] Online. You will be evaluated to determine if you require being seen in person or if you meet CDC guidelines for testing for COVID-19 based on symptoms, travel and exposures. If you meet criteria for testing, your [facility] provider or primary care physician [...] can be found on the CDC and [facility] web sites: https://www.cdc.gov/coronav irus/2019-nCoV/index.html ? [email or web address]://[facility].org /coronavirus SIGNATURE: Debbie Borges RN PATIENT NAME: [...] by DEBBIE BORGES RN on 02/01/20 Normal [facility] Coronavirus 2019on 0 COVID 19 Result ANIMAL CONTROL SPECIALIST Negative Normal Negative for COVID19 (SARS CoV2) by PCR. [facility] Comment on above: Result Comment: This test was developed and its performance characteristics determined by [facility]'s Adelso Neida [facility] Pathology and Laboratory Medicine [place]. This test has been authorized by FDA under an Emergency Use Authorization (EUA). This test has been validated in accordance with the FDA's Guidance Document Policy for Diagnostics Testing in Laboratories Certified to Perform High Complexity Testing under CLIA prior to Emergency use Authorization for Coronavirus Disease 2019 during the Public Health Emergency issued on December 20, 2019. Performed By: #### C OVID ####[facility] [address] [place], [place] [phone] COVID 19 Source ANIMAL CONTROL SPECIALIST Nasopharyngeal Swab Normal [facility] Comment on above: Performed By: #### C OVID ####[facility] [place], [place] [phone] PROGRESSon 02-01-2020 PROGRESS HNO ID: [id number] Author: Cherelle Velarde) EUGENIA Nuñez Service: ? Author Type: Physician Coding Team Lead Type: Progress Notes Filed: 02/01/2020 12:52 PM Note Text: Telemedicine Visit - Distance Health Virtual Visit Note This Team Access Model visit is a virtual encounter. It required patient-provider interaction for the medical decision making as documented below. Patient seen on [facility] platform. Location of patient: [place] History of Present Illness Pallavi Lujan is [...] in providing you the best care. Normal [facility] PROGRESS HNO ID: [id number] Author: Cynthia Boogie) Alee Service: ? Author Type: Physician Coding Team Lead Type: Progress Notes Filed: 02/01/2020 9:56 AM Note Text: Telemedicine Visit - Distance Health Telephone Visit Note This Team Access Model visit is a virtual encounter. It required patient-provider interaction for the medical decision making as documented below. The patient is a [facility] employee: No Location of patient: [place] History of Present Illness Pallavi Lujan is a 54 year old female who presents with 1 days of symptoms that are stable. Pt reports that yesterday she all of a sudden felt unwell. Went to ER in [place] last night and reports that tested negative [...] fail to improve Cynthia Vickers PA-C Normal [facility] CNOVon 05-26-2019 CNOV Office Visit (GSPSMN ) PALLAVI LUJAN ([id number]) 1965 F Date Time Provider Department 05/26/19 1:00 PM AMELIE ROBLEDO [facility] During your visit today, we recorded the following information about you: Amelie Robledo, PHD 05/26/2019 2:28 PM Signed [facility] BARIATRIC SURGERY BEHAVIORAL HEALTH EVALUATION DATE OF SERVICE: 05/26/2019 TIME OF SERVICE: 1:10 PM - 2:10 PM COST CENTER: 3B CPT CODE: 57689 Psychiatric diagnostic evaluation BILLING CODE: ENDO PSYL [...] strategies have been effective. The patient notes mu-ism practice is: Religion; will think about whether she'd take blood [...] AFTER COMPLETION OF GROUP (To schedule, call [phone]) *Continue to avoid alcohol in preparation for [...] emotional and behavioral readiness (To schedule call [phone]) *Read Preparing for Weight Loss Surgery: Workbook (Treatments That Work) by Kris Bazzi, Reji Ndiaye, and Monse Alcantar ([employer], 2006) *continue CPAP Adherence *implement [...] any questions. Amelie Robledo Ph.D., Clinical Psychologist; [facility] Director of Behavioral Services BEHAVIORAL HEALTH [...] by AMELIE ROBLEDO PHD on 05/26/19 Normal [facility] CNOV Office Visit (GSPSMN ) PALLAVI LUJAN ([id number]) 1965 F Date Time Provider Department 05/26/19 12:00 PM PSYL TESTING MAIN GSPSMN During your visit today, we recorded the following information about you: Amelie Robledo, PHD 05/26/2019 3:52 PM Signed [facility] PSYCHOLOGICAL TEST REPORT PATIENT: Pallavi Lujan ( ) TEST ADMINISTERED: [place] Multiphasic Personality Inventory-2 Restructured Form (MMPI2-RF) Binge Eating Questionnaire (BEQ) DATE: ADMINISTERED: May 26, 2019 DATE REVIEWED: May 26, 2019 TIME REVIEWED (start/stop): 3:17 PM - 3:55 PM BILL Robledo, [facility]#: 41523.59 computer administration of test. 53016 (1 unit) The patient completed the MMPI2-RF in the Bariatric and Metabolic [place] and was proctored by trained personnel. The ghost writer was available for help with the [...] AFTER COMPLETION OF GROUP (To schedule, call [phone]) *Continue to avoid alcohol in preparation for [...] emotional and behavioral readiness (To schedule call [phone]) *Read Preparing for Weight Loss Surgery: Workbook (Treatments That Work) by Kris Bazzi, Reji Ndiaye, and Monse Alcantar ([employer], 2006) *continue CPAP Adherence *implement [...] patient can request a written copy through [employer]. This report is not intended for forensic [...] Status:Closed by AMELIE ROBLEDO PHD on 05/26/19 [facility] PROGRESSon 05-26-2019 PROGRESS HNO ID: [id number] Author: Amelie Robledo Service: ? Author Type: Physician Type: Progress Notes Filed: 05/26/2019 3:52 PM Note Text: [facility] PSYCHOLOGICAL TEST REPORT PATIENT: Pallavi Lujan ( ) TEST ADMINISTERED: [place] Multiphasic Personality Inventory-2 Restructured Form (MMPI2-RF) Binge Eating Questionnaire (BEQ) DATE: ADMINISTERED: May 26, 2019 DATE REVIEWED: May 26, 2019 TIME REVIEWED (start/stop): 3:17 PM - 3:55 PM BILL Robledo, CPT#: 53423.59 computer administration of test. 49097 (1 unit) The patient completed the MMPI2-RF in the Bariatric and Metabolic [place] and was proctored by trained personnel. The ghost writer was available for help with the [...] AFTER COMPLETION OF GROUP (To schedule, call [phone]) *Continue to avoid alcohol in preparation for [...] emotional and behavioral readiness (To schedule call [phone]) *Read Preparing for Weight Loss Surgery: Workbook (Treatments That Work) by Kris Bazzi, Reji Ndiaye, and Monse Alcantar ([employer], 2006) *continue CPAP Adherence *implement [...] patient can request a written copy through [employer]. This report is not intended for forensic purposes. Amelie Robledo, Ph.D. Psychologist Normal [facility] PROGRESS HNO ID: [id number] Author: Amelie Robledo Service: ? Author Type: Physician Type: Progress Notes Filed: 05/26/2019 2:28 PM Note Text: [facility] BARIATRIC SURGERY BEHAVIORAL HEALTH EVALUATION DATE OF SERVICE: 05/26/2019 TIME OF SERVICE: 1:10 PM - 2:10 PM COST CENTER: [facility] CPT CODE: 82924 Psychiatric diagnostic evaluation BILLING CODE: ENDO PSYL MAIN BILL/Venkat DATE OF FIRST SERVICE THIS CYCLE: 05/26/2019 SESSION #: 1 The patient signed the Informed Consent for Psychological Evaluation AND Care Form, and the [facility] care insurance benefits, fees for service, [...] strategies have been effective. The patient notes mu-ism practice is: Religion; will think about whether she'd take blood [...] AFTER COMPLETION OF GROUP (To schedule, call [phone]) *Continue to avoid alcohol in preparation for [...] emotional and behavioral readiness (To schedule call [phone]) *Read Preparing for Weight Loss Surgery: Workbook (Treatments That Work) by Kris Bazzi, Reji Ndiaye, and Monse Alcantar ([employer], 2006) *continue CPAP Adherence *implement [...] any questions. Amelie Robledo Ph.D., Clinical Psychologist; [facility] Director of Behavioral Services BEHAVIORAL HEALTH BARIATRIC EVALUATION SUMMARY DATE : 05/26/2019 PATIENT NAME: Ms. Pallavi Lujan 1. Consent: Fair 2. Expectations:Fair 3. Social support :Good 4. Mental Health :Good 5. Chemical/Alcohol Abuse/Dependence: Guarded 6. Eating Behaviors:Good 7. Adherence : Good 8. Coping/Stressors:Fair 9. Overall Psychological Impression: Fair Normal [facility] CNCNPATEDon 05-19-2019 CNCNPATED Education (BMIREJ) PALLAVI LUJAN ([id number]) 1965 F Date Time Provider Department 05/19/19 [...] guidelines for weight loss surgery and has [employer] Insurance therefore is required to complete 6 [...] 4. Participate in sitting exercise/therapy as possible. [employer] TechnologiesTnathanael Marquis 30 minutes each - every other [...] May 19, 2019 TIME: 10:06 AM PAGER: [phone] Primary Visit Diagnosis:Class 3 severe obesity due [...] Encounter Status:Closed by VIKAS SANTOS on 05/19/19 [facility] PROGRESSon 05-19-2019 PROGRESS HNO ID: [id number] Author: Vikas Santos Service: ? Author Type: [...] guidelines for weight loss surgery and has [employer] Insurance therefore is required to complete 6 [...] 4. Participate in sitting exercise/therapy as possible. [employer]athanael Marquis 30 minutes each - every other [...] May 19, 2019 TIME: 10:06 AM PAGER: [phone] Normal [facility] CNCNPATEDon 03-14-2019 CNCNPATED Education (BMIREJ) LUJANPALLAVI SHORT ([id number]) 1965 F Date Time Provider Department 03/14/19 2:00 PM VIKAS SANTOS (RD) BMIREJ Reason for Visit: Reassessment [674] Patient Education [91] Progress Notes: Vikas Santos RD 03/14/2019 5:08 PM Signed [facility] AMBULATORY PATIENT EDUCATION NOTE-Established Shared Nutrition Group [...] do you eat deep fried foods (chips, Marshallese fries, fried meats, etc) Never How often [...] guidelines for weight loss surgery and has [employer] Insurance therefore is required to complete 6 [...] March 14, 2019 TIME: 4:55 PM PAGER: [phone] Primary Visit Diagnosis:Class 3 severe obesity due [...] Encounter Status:Closed by VIKAS SANTOS on 03/14/19 [facility] PROGRESSon 03-14-2019 PROGRESS HNO ID: [id number] Author: Vikas Santos Service: ? Author Type: Registered Dietitian Type: Progress Notes Filed: 03/14/2019 5:08 PM Note Text: [facility] AMBULATORY PATIENT EDUCATION NOTE-Established Shared Nutrition Group [...] do you eat deep fried foods (chips, Marshallese fries, fried meats, etc) Never How often [...] guidelines for weight loss surgery and has [facility] therefore is required to complete 6 [...] March 14, 2019 TIME: 4:55 PM PAGER: [phone] Normal [facility] CNCNPATEDon 02-17-2019 CNCNPATED Education (BMIREJ) PALLAVI LUJAN ([id number]) 1965 F Date Time Provider Department 02/17/19 [...] skip meals. - - met 2.? Begin 0788-3817 calorie partial liquid diet (refer to handout) [...] guidelines for weight loss surgery and has [employer] Insurance therefore is required to complete 6 [...] April appointment today prior to leaving at [facility] if preferred location Referred/Supervised by: Neo/Mark MYERS Billing Type: Re-assess/15 min 2 units SIGNATURE: Vikas Santos RD PATIENT NAME: Pallavi Lujan DATE: February 17, 2019 TIME: 8:38 AM PAGER: [phone] Primary Visit Diagnosis:Class 3 severe obesity due [...] Encounter Status:Closed by VIKAS SANTOS on 02/17/19 [facility] PROGRESSon 02-17-2019 PROGRESS HNO ID: [id number] Author: Vikas (Ravi) Nicanor Service: ? Author Type: Registered Dietitian Type: Progress Notes Filed: 02/17/2019 11:26 AM Note Text: Nutritional Therapy Pre op weight loss surgery Sleeve Gastrectomy Re-Assessment PROGRESS: Nutrition Intervention (date of last encounter 01/17/2019) Read Your Guide to Surgery before next visit - - met 1.? Do not skip meals. - - met 2.? Begin 9316-4062 calorie partial liquid diet (refer to handout) [...] guidelines for weight loss surgery and has [employer] Insurance therefore is required to complete 6 [...] April appointment today prior to leaving at [facility] if preferred location Referred/Supervised by: Neo/Mark MYERS Billing Type: Re-assess/15 min 2 units SIGNATURE: Vikas Santos RD PATIENT NAME: Pallavi Lujan DATE: February 17, 2019 TIME: 8:38 AM PAGER: [phone] Normal [facility] CNOVon 02-14-2019 CN Office Visit (BMIREJ ) PALLAVI LUJAN ([id number]) 1965 F Date Time Provider Department 02/14/19 [...] chronic medical conditions associated with obesity include [place] diabetes, hypertension taking Norvasc, lisinopril, metoprolol and [...] goal weight prior to liquid fast: Per continuous dryout operator Surgically Cleared with completion of the [...] Yuni Larson MD Referring Provider: YUNI LARSON) [[id number]] Allergies As of Date: 02/14/2019 (No Known Allergies) Date Reviewed: 02/14/2019 Reviewed by: Ernestine Spaulding - Fully Assessed Reason for Visit: New Patient [172] Primary Visit Diagnosis:Morbid obesity (HCC) [E66.01] Other Visit Diagnosis:Gastroesophageal reflux disease, esophagitis presence not specified [K21.9] Order(s):EGD [[id number]] Order #: [id number] FUTURE Prescriptions as of 02/14/2019 Sig: ATORVASTATIN [...] Encounter Status:Closed by YUNI LARSON on 02/14/19 [facility] PROGRESSon 02-14-2019 PROGRESS HNO ID: [id number] Author: Yuni Valverde) Neo Service: ? Author [...] chronic medical conditions associated with obesity include [place] diabetes, hypertension taking Norvasc, lisinopril, metoprolol and [...] goal weight prior to liquid fast: Per continuous dryout operator Surgically Cleared with completion of the [...] record and US mail, Yuni Larson MD [facility] [facility] PROGRESSon 12-19-2018 Protein mass conc HNO ID: [id number] Author: Alin Fisher (Tech) Service: Radiology Author Type: Business Continuity Planner Type: Progress Notes Filed: 12/19/2018 2:41 PM [...] OCHOA RT December 19, 2018 2:40 PM [facility] XR CHEST 2V FRONTAL/LATon XR CHEST 2V [...] silhouette. Other: . IMPRESSION: Mild bibasilar atelectasis. Mold Stripper: ANGELA Transcribe Date/Time: Dec 19 2018 2:47P Dictated by : RUTH ANN OWENS MD This examination was interpreted and the report reviewed and electronically signed by: RUTH ANN OWENS MD on Dec 19 2018 2:48PM EST [id number] [facility] Vital Signs Date Time Vital Sign Value Performing Clinician Facility 11-26-2024 09:48-0500 Body height 165.1 cm Winston Sotelo MD Work Phone: [facility] 11-26-2024 09:48-0500 Body mass index (BMI) [Ratio] 34.9 kg/m2 Winston Sotelo MD Work Phone: [facility] 11-26-2024 09:48-0500 Body temperature 98.6 [degF] Winston Sotelo MD Work Phone: [facility] 11-26-2024 09:48-0500 Body weight 95.25 kg Winston Sotelo MD Work Phone: [facility] 11-26-2024 09:48-0500 Diastolic blood pressure 85 mm[Hg] Winston Sotelo MD Work Phone: [facility] 11-26-2024 09:48-0500 Heart rate 119 /min Winston Sotelo MD Work Phone: [facility] 11-26-2024 09:48-0500 Respiratory rate 18 /min Winston Sotelo MD Work Phone: [facility] 11-26-2024 09:48-0500 SaO2% (BldA) [Mass fraction] 94 % Winston Sotelo MD Work Phone: [facility] 11-26-2024 09:48-0500 Systolic blood pressure 150 mm[Hg] Winston Sotelo MD Work Phone: [facility] 02-14-2023 15:47-0400 Blood Pressure Location David JIN [facility] [place] 02-14-2023 15:47-0400 Diastolic blood pressure 82 mm[Hg] David NILL [facility] [place] 02-14-2023 15:47-0400 Heart rate 82 /min David NILL [facility] [place] 02-14-2023 15:47-0400 Respiratory rate 16 /min David NILL [facility] [place] 02-14-2023 15:47-0400 Systolic blood pressure 132 mm[Hg] David NILL [facility] [place] 02-04-2023 13:50-0400 Body height 165.1 cm Kaitlin Garibay Other [facility] Other 02-04-2023 13:50-0400 Body mass index (BMI) [Ratio] 35.44 kg/m2 Kaitlin Contrerasmond Other [facility] Other 02-04-2023 13:50-0400 Body temperature 97.1 [degF] Kaitlin Contrerasmond Other [facility] Other 02-04-2023 13:50-0400 Body weight 96.62 kg Kaitlin Contrerasmond Other [facility] Other 02-04-2023 13:50-0400 Diastolic blood pressure 71 mm[Hg] Kaitlin Contrerasmond Other [facility] Other 02-04-2023 13:50-0400 Respiratory rate 18 /min Kaitlin Contrerasmond Other [facility] 02-04-2023 13:50-0400 SaO2% (BldA) [Mass fraction] 96 % Kaitlin Garibay Other [facility] 02-04-2023 13:50-0400 Systolic blood pressure 110 mm[Hg] Kaitlin Garibay Other [facility] 01-16-2023 16:45-0400 Body height 165.1 cm Yolie Cross Other [facility] 01-16-2023 16:45-0400 Body mass index (BMI) [Ratio] 36.27 kg/m2 Yolie Cross Other [facility] 01-16-2023 16:45-0400 Body temperature 97.3 [degF] Yolie Cross Other [facility] Other 01-16-2023 16:45-0400 Body weight 98.88 kg Yolie Cross Other [facility] 01-16-2023 16:45-0400 Respiratory rate 18 /min Yolie Cross Other [facility] 01-16-2023 16:45-0400 SaO2% (BldA) [Mass fraction] 97 % Yolie Cross Other [facility] 09-04-2022 13:50-0500 Body height 165.1 cm Kaitlin Garibay Other [facility] Other 09-04-2022 13:50-0500 Body mass index (BMI) [Ratio] 35.94 kg/m2 Kaitlin Contrerasmond Other [facility] Other 09-04-2022 13:50-0500 Body temperature 97.1 [degF] Kaitlin Contrerasmond Other [facility] Other 09-04-2022 13:50-0500 Body weight 97.98 kg Kaitlin Contrerasmond Other [facility] Other 09-04-2022 13:50-0500 Diastolic blood pressure 75 mm[Hg] Kaitlin Lani Other [facility] Other 09-04-2022 13:50-0500 Respiratory rate 18 /min Kaitlin Lani Other [facility] Other 09-04-2022 13:50-0500 SaO2% (BldA) [Mass fraction] 97 % Kaitlin Lani Other [facility] Other 09-04-2022 13:50-0500 Systolic blood pressure 141 mm[Hg] Kaitlin Garibay Other [facility] Other 08-27-2022 10:35-0500 Body height 165.1 cm Yolie Cross Other [facility] Other 08-27-2022 10:35-0500 Body mass index (BMI) [Ratio] 36.07 kg/m2 Yolie Cross Other [facility] Other 08-27-2022 10:35-0500 Body temperature 97.6 [degF] Yolie Cross Other [facility] Other 08-27-2022 10:35-0500 Body weight 98.34 kg Yolie Cross Other [facility] Other 08-27-2022 10:35-0500 Diastolic blood pressure 81 mm[Hg] Yolie Cross Other [facility] Other 08-27-2022 10:35-0500 Respiratory rate 18 /min Yolie Cross Other [facility] 08-27-2022 10:35-0500 SaO2% (BldA) [Mass fraction] 98 % Yolie Cross Other [facility] Other 08-27-2022 10:35-0500 Systolic blood pressure 126 mm[Hg] Yolie Cross Other [facility] Other 08-18-2021 15:30-0400 Body height 165.1 cm Tai Zamora Other [facility] Other 08-18-2021 15:30-0400 Body mass index (BMI) [Ratio] 48.25 kg/m2 Tai Zamora Other [facility] Other 08-18-2021 15:30-0400 Body weight 131.54 kg Tai Zamora Other [facility] Other 07-10-2021 19:10-0400 Body height 165.1 cm Pcp Unknown [facility] [place] 07-10-2021 19:10-0400 Body temperature 97.52 [degF] Pcp Unknown [facility] 07-10-2021 19:10-0400 Body weight 94 kg Pcp Unknown [facility] [place] 07-10-2021 19:10-0400 Diastolic blood pressure 68 mm[Hg] Pcp Unknown [facility] 07-10-2021 19:10-0400 Heart rate 78 /min Pcp Unknown [facility] [place] 07-10-2021 19:10-0400 Respiratory rate 16 /min Pcp Unknown [facility] 07-10-2021 19:10-0400 SaO2% (BldA) [Mass fraction] 96 % Pcp Unknown [facility] 07-10-2021 19:10-0400 Systolic blood pressure 127 mm[Hg] Pcp Unknown [facility] Encounters Encounter Date Encounter Type Care Provider Facility Start: 11-26-2024 End: 11-26-2024 ambulatory Winston Sotelo MD Work Phone: [facility] Work Phone: Start: 11-26-2024 End: 11-26-2024 Patient encounter procedure Winston Sotelo MD Work Phone: [facility] Work Phone: Start: 10-16-2024 End: 10-16-2024 ambulatory Winston Sotelo Facility:[facility] Start: 10-16-2024 End: 10-16-2024 Departed Referred Winston Sotelo MD Work Phone: [facility] [place] [facility] Start: 01-16-2024 End: 01-16-2024 [facility] Start: 12-19-2023 End: 12-19-2023 ambulatory Winston Sotelo Facility:[facility] Start: 04-25-2023 End: 04-26-2023 ambulatory David R NILL Facility:[facility] Start: 04-25-2023 End: 04-25-2023 Patient encounter procedure David R NILL [facility] Start: 04-11-2023 End: 04-12-2023 ambulatory David R NILL Facility:[id number] Start: 03-14-[address] WINSTON SOTELO . Facili ty:[facility] Start: 02-14-2023 End: 02-15-2023 ambulatory David R NILL Facility:[facility] Start: 02-14-2023 End: 02-14-2023 Patient encounter procedure David R NILL [facility] [place] Start: 02-04-2023 End: 02-04-2023 ambulatory Kaitlin Garibay Other [facility] Other Start: 02-04-2023 Office outpatient vi sit 15 minutes Kaitlin Garibay [facility] Start: 01-25-2023 ambulatory David NILL Facility:[facility] Start: 01-19-2023 Encounter for genera l adult medical examination without abnormal findings DR WINSTON SOTELO . [facility] Start: 01-19-2023 End: [facility] Start: 01-16-2023 Office outpatient vi sit 15 minutes Yolie Cross [facility] Start: 01-16-2023 End: 01-17-[address] WINSTON SOTELO . [facility] Other Start: 01-16-2023 End: 01-17-2023 Encounter for general adult medical examination without abnormal findings DR WINSTON SOTELO . Facility:[facility] Start: 09-04-2022 End: 09-04-2022 ambulatory Kaitlin Garibay Other [facility] Other Start: 09-04-2022 Office outpatient vi sit 15 minutes Kaitlin Lani [facility] Start: 08-27-2022 End: 08-27-2022 ambulatory Yolie Cross Other [facility] Other Start: 08-27-2022 Office outpatient vi sit 25 minutes Yolie Cross [facility] Start: 07-05-2022 End: 07-06-[address] PATRICE NO Facility:[facility] Start: 06-30-2022 End: 07-01-[address] WINSTON SOTELO . Facility:[facility] Start: 11-01-2021 End: 11-01-2021 ambulatory Tai Olexa Other [facility] Other Start: 11-01-2021 Postop follow up vis it related to original px Tai Olexa [facility] [place] Start: 10-17-2021 End: 10-17-2021 ambulatory Tai Olexa Other [facility] Other Start: 10-17-2021 Telephone encounter Tai Olexa [facility] Start: 09-21-2021 End: 09-21-2021 ambulatory Tai Olexa Other [facility] Other Start: 09-21-2021 Telephone encounter Tai Olexa [facility] Start: 08-18-2021 Encounter for other preprocedural examination Tai Olexa [facility] Start: 08-18-2021 Office outpatient ne w 45 minutes Tai Olexa [facility] [place] Start: 07-10-2021 End: 07-10-2021 Emergency department patient visit Jacqueline Robles [facility] Adult ED Gold 04 Start: 03-25-2019 Patient encounter status Asha Sotelo MD Work Phone: [facility] Start: 12-19-2018 Encounter for other preprocedural examination [facility] Start: 12-19-2018 Patient encounter procedure [facility] Procedures Date Procedure Procedure Detail Performing [...] acellular pertussis vaccine, adsorbed Kaitlin Garibay Other [facility] 07-10-2021 tetanus toxoid, reduced diphtheria toxoid, and acellular pertussis vaccine, adsorbed Pcp Unknown [facility] 05-21-2021 SARS-CoV-2 (COVID-19 ) mRNA-1273 vaccine David NILL [facility] [place] 04-19-2021 SARS-CoV-2 (COVID-19 ) mRNA-1273 vaccine David NILL [facility] [place] NEGATED: Highlighted row has not occurred!02-14-2023 influenza virus vaccine, unspecified formulation David NILL [facility] [place] Payers Date Payer Category Payer Self-pay 1965 Unknown [id number] 2.16.84 [id number] 1965 Unknown [id number] 2.16.84 [id number] 1965 Unknown [id number] 2.16.84 [id number] 1965 Unknown [id number] 2.16.84 [id number] 1965 Unknown [id number] 1965 Unknown [id number] 1965 Unknown [id number] 1965 Unknown [id number] 1960 Medicaid [id number] 2. [id number] 1960 Unknown [id number] 2.1 [id number] Unknown [employer] Unknown [id number] Unknown [id number] Social History Date Type Detail Facility [facility] Tobacco smoking consumption unknown [facility] Sex Assigned At [facility] Start: 02-14-2023 End: 11-26-2024 Tobacco smoking status Ex-smoker (finding) [facility] [place] Tobacco smoking status Never [facility] [place] Start: 11-26-2024 Sex Female (finding) [facility] Start: 1965 Sex Assigned At Female F [facility] Functional Status Date Assessment Result Facility 02-14-2023 Functional Status N/A [facility] 08-18-2021 to 01-16-2024 Note Date & Type Note Facility 01-16-2024 Note [facility] Note Chief Complaint: Patient here [...] and an angiotensin-c (more content not included)... [facility] 02-15-2023 Note Chief Complaint consultation [...] than 30 d (more content not included)... [facility] Comment on above: Result Comment: Elec [...] no improvement in 2 to 3 days [facility] Other 03-31-2023 NoteHypertension is currently well controlled- 124/76 Continue all meds- lisinopril, lasix, coreg prnUnA[facility]03-31-2023 NoteNYHC II Continue GDMT- Lasix 20 mg daily- Diuretic therapy Monitor daily weights, I&O, fluid restriction 1.5-2L/day, renal function and electrolytesUnAdena [facility]03-31-2023 NoteCoronary artery disease is Without any concerning symptoms Continue goal-directed medical therapy including aspirin, Lipitor, carvedilol, lisinopril Continue heart healthy diet, regular exerciseUnAdena [facility] 01-19-2023 NoteUTP CARDIOLOGY PROGRESS NOTE HPI: Pallavi [...] diet, regular exercise Diastolic heart failure (CMS/HCC) [facility] II (more content not included)...[facility]03-28-2023 Evaluation note* Encounter Date Diagnosis [...] treatment plan. Patient left in stable condition. [facility] Other 11-14-2022 Evaluation note* Encounter Date Diagnosis [...] no improvement in 2 to 3 days. [facility] Other 11-06-2022 Evaluation note* Encounter Date Diagnosis [...] and rest, Tylenol/Motrin as directed, rx of Fults and Flonase, cool mist humidifier, throat lozenges. [...] condition Aug, Sore throat (ICD-10 - J02.9) [facility] Other 01-11-2022 Evaluation note* Encounter Date Diagnosis [...] remova l of sutures (ICD-10 - Z48.02) [facility] Other 12-27-2021 Evaluation note* Encounter Date Diagnosis Assessment Notes Treatment Notes Treatment Clinical Notes Sep, Other specified postprocedural states (ICD-10 - Z98.890) [facility] Other 10-28-2021 Evaluation note* Encounter Date Diagnosis [...] outcome. Jul, Pre-op exam (ICD-10 - Z01.818) [facility] Other Evaluation + Plan note No data available for this section [facility] [place] Evaluation noteNo InformationNort [employer] Other Evaluation note* Diagnosis Onset Date Resolution Status Admit Date Contact with or suspected exposure to severe acute respiratory syndrome noneactive November 9:13am Sore throat noneactive November 26, 2024 9:13am [facility] Work Phone: History general Narrative - Reported* Type Description Date Medical History Hypertension Medical History hypercholesterolemia Medical History urinary frequency Medical History acid reflux Medical History Arthritis Medical History pre diabetic Surgical History knee surgery 2011 Surgical History tubal ligation Surgical History ankle surgery Hospitalization History see above surgical histo [facility] Narrative - Reported* Type Description Date Medical History Hypertension Medical History hypercholesterolemia Medical History urinary frequency Medical History acid reflux Medical History Arthritis Medical History pre diabetic Surgical History knee surgery 2010 Surgical History tubal ligation Surgical History ankle surgery Surgical History gastric bypass Hospitalization History see above surgical histo [facility] Other [facility] Narrative - Reported* Type Description Date Medical History Hypertension Medical History hypercholesterolemia Medical History urinary frequency Medical History acid reflux Medical History Arthritis Medical History pre diabetic Surgical History knee surgery 2010 Surgical History tubal ligation Surgical History ankle surgery Surgical History gastric bypass Surgical History right elbow Surgical History carpal tunnel Hospitalization History see above surgical [facility] Discharge instructions No data available for this section [facility] [place] Progress note No data available for this section [facility] [place] Summary Purpose Family History Relationship Condition Age [...] section and content) DATE CREATED AUTHOR 12/20/2018 [facility] DATE CREATED AUTHOR AUTHOR'S ORGANIZ ATION 02/04/2020 [facility] DATE CREATED AUTHOR AUTHOR'S ORGANIZ ATION 08/27/2021 [facility] [place] DATE CREATED AUTHOR AUTHOR'S ORGANIZ ATION 08/29/2021 [facility] DATE CREATED AUTHOR AUTHOR'S ORGANIZ ATION 03/07/2023 [facility] DATE CREATED AUTHOR AUTHOR'S ORGANIZ ATION 04/26/2023 Duglas Woodall [facility] DATE CREATED AUTHOR AUTHOR'S ORGANIZ ATION 01/18/2024 [facility] DATE CREATED AUTHOR AUTHOR'S ORGANIZ ATION 10/19/2024 [facility] <item> Privacy Markings (unrecogniz [...] BE BASED ON THE PRIMARY CLINICAL RECORDS. [facility] [employer] [facility]. provides no warranty or guarantee of the accuracy or completeness of information in this document.
[2024-12-15 17:13] LABS: Bilirubin Urine NEGATIVE (NEGATIVE); Blood Urine TRACE-I (NEGATIVE); Clarity Urine CLOUDY (CLEAR); Color Urine LT. YELLOW (YELLOW); Glucose Urine UA NEGATIVE (NEGATIVE); Ketones Urine NEGATIVE (NEGATIVE); Leukocyte Esterase Urine MODERATE (NEGATIVE); Nitrite Urine POSITIVE (NEGATIVE); Protein Urine TRACE mg/dL (NEG/TRACE); Specific Gravity Urine 1.025 (1.005-1.025); Urobilinogen Urine 0.2 EU/dL (0.2-1.0); pH Urine 5.5 (5.0-9.0)
[2024-12-15 17:15] LABS: WBC Urine 75-100 #/HPF (NONE SEEN)
[2024-12-15 17:16] LABS: Bacteria Urine SMALL #/HPF (NONE SEEN); Cast Seen? NONE SEEN #/LPF (NONE SEEN); Crystals Seen? None Seen #/HPF (None Seen); Mucus Urine NONE SEEN (NONE SEEN); Squamous Epithelial Cell Urine RARE #/LPF (NONE/RARE); Urine Culture Indicated ALREADY ORDERED
== END 2024-12-15 16:49 | disposition home or self-care (01) ==
LOC: LAB 16:48
PROVIDERS: PCP Family Medicine; Visit Provider Family Medicine
DX: R39.9 Unspecified symptoms and signs involving the genitourinary system (principal)
CPT/HCPCS: 81001; 87086

== ENCOUNTER 2025-01-15 08:47 | Outpatient (OUT) | payer OTHER, SELFPAY ==
--- NOTE | 2025-01-15 09:00 | CA_ITS ---
Patient Name: KAMILA LUJAN MR#: [id number] : 1965 Exam Date: 01/15/2025 Ordering Doctor: DR DANNIE OCHOA M.D. ECHOCARDIOGRAM REPORT PROCEDURE: CA ECHO DOPPLER COMPLETE INDICATIONS: Pericardial effusion, hypertension, former smoker COMPARISON: None. DESCRIPTION: COMPLETE ECHOCARDIOGRAM Real-time transthoracic echocardiography with 2D, M-mode, spectral and color flow Doppler performed. QUALITY: Technical quality was good. LEFT VENTRICLE: Normal chamber size. Thickened septal wall. Normal systolic function LV EF: Normal left ventricular ejection fraction, (>55%). DIASTOLIC: Diastolic function is indeterminate. ATRIAL SEPTUM: Visually appears intact. LEFT ATRIUM: Normal chamber size. RIGHT ATRIUM: Normal chamber size. RIGHT VENTRICLE: Normal chamber size. Normal right ventricular systolic function. TRICUSPID VALVE: Normal mobility and thickness. No stenosis with no regurgitation. Unable to assess right-sided pressures due to lack of measurable tricuspid regurgitation. MITRAL VALVE: Normal mobility and thickness. No evidence of mitral valve stenosis. There is no mitral annular calcification. No mitral regurgitation. AORTIC VALVE: Normal trileaflet appearance. Thickened aortic valve. Normal leaflet mobility. No evidence of aortic valve stenosis. No aortic regurgitation. AORTIC ROOT: Normal diameter and appearance, measuring 3.3 cm. Ascending aorta is normal in size, measuring 2.6 cm. PULMONIC VALVE: Normal thickness and mobility. No stenosis. Trivial regurgitation. PERICARDIUM: Trace anterior pericardial effusion. IVC: Collapses with inspirations. PLEURA: CONCLUSION: 1. Normal ventricular size and systolic function. Estimated LVEF is 55 to 60%. 2. No significant valvular dysfunction. 3. Unable to assess right-sided pressures due to lack of measurable tricuspid regurgitation. 4. Trace anterior pericardial effusion. Adult Echocardiography Procedure Report Left Ventricle LVEDD (3.7 - 5.6 cm): 4.12 cm LVESD (2.2 - 4.0 cm): 3.03 cm LVIVS thickness (0.6 - 1.2 cm): 1.20 cm LVPW thickness (0.5 - 1.0 cm): 1.05 cm e': 0.07 m/s E - e': 8.54 LVOT Max Gradient: 4.49 mm[Hg], 4.96 mm[Hg] Peak Velocity (LVOT): 1.06 m/s, 1.11 m/s LVOT Diameter 2.38 cm Left Atrium LA Volume Index (2D A2C): 31.94 ml/m2 Left Atrium Systolic Dimension: 3.16 cm Mitral Valve MV E to A Ratio: 0.81 Mitral Valve A-Wave Peak Velocity: 0.76 m/s Mitral Valve E-Wave Peak Velocity: 0.62 m/s Right Ventricle Aorta AO Root Diam: 3.26 cm Ascending Ao Diam: 2.59 cm Aortic Valve AoV Area (Peak Jonathan): 3.10 cm2, 2.95 cm2 AoV Area (VTI): 3.42 cm2, 3.36 cm2 Peak Velocity(Antegrade Flow): 1.59 m/s Peak Gradient(Antegrade Flow): 10.13 mm[Hg] Mean Velocity(Antegrade Flow): 0.86 m/s Mean Gradient(Antegrade Flow): 3.70 mm[Hg] Velocity Time Integral: 29.46 cm Tricuspid Valve Pulmonic Valve Mean Gradient: 1.84 mm[Hg] Mean Velocity: 0.61 m/s Peak Velocity: 1.06 m/s, 0.99 m/s Peak Gradient: 3.94 mm[Hg], 4.48 mm[Hg] Right Atrium Right Atrium Systolic Pressure: 42.77 ml, 42.77 ml Dictated by: Ken Jefferson M.D. on 01/16/2025 at 17:07 Approved by: Ken Jefferson M.D. on 01/16/2025 at 17:10
--- OUTSIDE RECORDS SUMMARY | 2025-01-15 09:00 | XMS_ITS | CCD ---
Author Organization [facility] Care Team Providers Care Animal Care Worker Name Role Phone ISAAC LAROSE Referring Unavailable Unknown, Pcp Unavailable Unavailable Jacqueline Robles Unavailable NoahTai Unavailable Tay Yolie Unavailable Kaitlin Garibay Unavailable [...] Unavailable NILL ., DR ANDERSON Attending Unavailable David JIN Attending Unavailable NILL, David Murphy Attending Unavailable NILLDavid Attending Unavailable Winston Crane MD Attending Provider Winston Crane MD Primary Care Provider [phone] Winston Crane Attending Unavailable Winston Crane Admitting Unavailable Winston Crane Primary Care Unavailable Winston Crane Attending Unavailable Winston Crane Admitting Unavailable ELTAHAWY, PATRICE Attending Unavailable ELTAHAWPATRICE Ruelas Attending Unavailable Allergies Allergy Classification Reported Allergen(s) Allergy Type Date of Onset Reaction(s) Facility (1 source) Cat Angioedema [facility] (1 source) DrugAllergiesUnable to Obtain [facility] Comment on above: Pharmacy/MD office c losed (5 sources) Latex; Translations: [latex] Drug allergy 3 lips [facility] Medications Current Medications Medication Drug Class(es) Dates Sig (Normalized) Sig (Original) acetaminophen 500 mg oral tablet (10 sources) Start: 11-26-2024 take 2 tablets by mouth three times daily Acetaminophen 500 mg tablet Active 1000 MG PO Three times daily November 26, 2024 12:00am Tylenol Active [id number] 200 actuat albuterol 0.09 mg/actuat metered dose inhaler (1 source) beta2-Adrenergic Agonist Start: 09-04-2022 take 2 puff(s) by inhalation four times daily as needed Albuterol Sulfate HFA 108 (90 Base) MCG/ACT 2 puffs Inhalation 4 times a day prn Aug, Active Aspir-81 (8 sources) Aspir-81 Active aspirin 81 mg chewable tablet (4 sources) Platelet Aggregation Inhibitor, Nonsteroidal Anti-inflammatory Drug Start: 02-09-2023 aspirin 81 mg Chew Tab 81 mg = 1 tab(s), Chewed, Daily, Refills(s) 0 Start Date: 02/09/23 Status: Ordered Start: 03-24-2019 take 1 tablet by lenny th once daily Aspirin 81 mg Tablet,Delayed Release (Dr/Ec) Active 81 MG PO Daily March 23, 2019 11:00pm atorvastatin 80 mg oral tablet (10 sources) HMG-CoA Reductase Inhibitor Start: 03-24-2019 take [...] Status: Ordered celecoxib 200 mg oral capsule (12 sources) Nonsteroidal Anti-inflammatory Drug Start: 02-12-2018 take [...] 1.5 mg/ml oral solution (2 sources) Uncompetitive W-ecrkig-Y-aspartat e Receptor Antagonist, Sigma-1 Agonist Start: 08-27-2022 take 10 mL by mouth every eight hours [place] DM 7.5-7.5 MG/5ML 10 mL Orally every 8 hours for 5 days Aug, Active docusate sodium 100 mg oral tablet (4 sources) Start: 11-26-2024 Docusate Sodium 100 mg capsule Active MG PO November 26, 2024 12:00am Start: 02-09-2023 take 1 capsule by [facility] daily as needed for constipation Colace 100 mg Cap 100 mg = 1 cap(s), Oral, BID, PRN for constipation, Refills(s) 0 Start Date: 02/09/23 Status: Ordered ferrous sulfate 325 mg oral tablet (4 sources) Start: 11-26-2024 take 1 tablet by mouth twice daily Ferrous Sulfate 325 mg (65 mg iron) tablet Active 325 MG PO Twice daily November 26, 2024 12:00am Start: 02-09-2023 take 1 tablet by [facility] twice daily ferrous sulfate 325 mg oral [...] Aug, Active furosemide 20 mg oral tablet (18 sources) Loop Diuretic Start: 03-24-2019 take 1 [...] Status: Ordered lisinopril 40 mg oral tablet (12 sources) Angiotensin Converting Enzyme Inhibitor Start: 03-24-2019 take 1 tablet by mouth once daily Lisinopril 40 mg tablet Active 40 MG PO Daily March 23, 2019 11:00pm Lisinopril Activ e Multivitamin preparation (10 sources) Start: 02-09-2023 take 1 tablet by mouth once daily multivitamin 1 tab(s), Oral, Daily, Refill(s) 0 Start Date: 02/09/23 Status: Ordered Multivitamin Act lisandro oxybutynin chloride 5 mg oral tablet (12 sources) Cholinergic Muscarinic Antagonist Start: 02-12-2018 take 1 tablet by mouth once daily Oxybutynin Chloride 5 mg Tablet Active 5 MG PO Daily March 23, 2019 11:00pm Oxybutynin Chlor leonarda Active pantoprazole 40 mg delayed release oral tablet (14 sources) Proton Pump Inhibitor Start: 11-26-2024 Pantoprazole [...] ium Active predniSONE 20 mg oral tablet (3 sources) Start: 09-04-2022 take 1 tablet by mouth every twelve hours predniSONE 20 MG 1 tablet Orally 2 times a day for 5 day(s) Aug, Active Start: 06-08-2019 End: 11-26-2024 take 1 tablet by mouth once daily Prednisone 50 mg tablet Discontinued 50 MG PO Daily 02 23June 07, 2019 11:00pm November 26, 2024 9:52am Semaglutide (2 sources) Start: 11-26-2024 Semaglutide 0. 25 mg or [...] Sep, Not-Taking amLODIPine 5 mg oral tablet (2 sources) Dihydropyridine Calcium Channel Denzel Start: 03-24-2019 End: [...] sodium 75 mg delayed release oral tablet (10 sources) Nonsteroidal Anti-inflammatory Drug Start: 06-07-2019 End: 11-26-2024 take 1 tablet by mouth twice daily Diclofenac Sodium 75 mg tablet,delayed release (DR/EC) Discontinued 75 MG PO Twice daily June 06, 2019 11:00pm November 26, 2024 9:53am Voltaren 1 % as directed Externally Active 24 hr metoprolol succinate 25 mg extended release oral tablet (10 sources) beta-Adrenergic Denzel Start: 03-24-2019 End: 11-26-2024 take 1 tablet by mouth once daily Metoprolol Succinate (Toprol Xl) 25 mg Tablet Extended Release 24 Hr Discontinued 25 MG PO Daily March 23, 2019 11:00pm November 26, 2024 9:52am Metoprolol Succi hannah ER Not-Taking tiZANidine 4 mg oral tablet (10 sources) Central alpha-2 Adrenergic Agonist Start: 06-07-2019 [...] Active traMADol hydrochloride 50 mg oral tablet (10 sources) Opioid Agonist Start: 03-24-2019 End: 11-26-2024 [...] Coronary arteriosclerosis; Translations: [Atherosclerotic heart disease of [place] coronary artery without angina pectoris] Onset: 07-04-2022 02-09-2023 Chronic Deficiency and other anemia (2 sources) Anemia 02-12-2018 Episodic Deficiency and other anemia (2 sources) Iron deficiency anemia; Translations: [Iron deficiency anemia, unspecified] Onset: 04-25-2023 Episodic Diabetes mellitus without complication (2 sources) Diabetes mellitus 02-09-2023 Chronic E Codes: Fall (2 sources) Fall 07-10-2021 Comment on above: FALL Esophageal disorders (4 sources) Gastroesophageal reflux disease; Translations: [Gastro-esophageal reflux disease without esophagitis] 02-09-2023 Chronic Essential hypertension (9 sources) Essential (primary) hypertension; Translations: [Hypertensive disorder] Onset: 12-19-2018 02-12-2018 Chronic Hypertension with complications and secondary hypertension (2 sources) Hypertensive heart disease without heart failure; Translations: [Hypertensive heart disease without heart failure] Onset: 12-23-2024 Chronic Immunizations and screening for infectious disease (6 sources) Contact with and (suspected) exposure to [...] without mention of complication] 07-10-2021 Episodic Osteoarthritis (4 sources) Arthritis; Translations: [Unspecified osteoarthritis, unspecified site] 02-09-2023 Chronic Other connective tissue disease (2 sources) Muscle pain; Translations: [Myalgia, other site] 06-07-2019 [...] Chronic Other nervous system disorders (10 sources) Carpal tunnel syndrome; Translations: [Carpal tunnel [...] Onset: 12-19-2018 Episodic Other upper respiratory infections (8 sources) Acute upper respiratory infection, unspecified; Translations: [...] cervical region] 02-09-2023 Episodic Sprains and strains (2 sources) Strain of neck muscle; Translations: [Strain of [...] 07-10-2021 Unclassified (1 source) Abrasion, hand 07-10-2021 Unclassified (1 source) Other pericardial effusion (noninflammatory); Translations: [Other pericardial effusion (noninflammatory)] Onset: 12-23-2024 Varicose veins of lower extremity (2 sources) [...] with and (suspected) exposure to covid-19 Z20.822 Unclassified (1 source) Other pericardial effusion (noninflammatory); Translations: [Other pericardial effusion (noninflammatory)] Onset: 12-23-2024 Results Test Name Value Interpretation Reference Range Facility Office Visiton 12-23-2024 Follow-up visit [id number] Jackelyn Lujan 1965 F Date Provider Department Center 12/23/2024 Samantha-PATRICE NO CARD [facility] No family history on file Level of Service:25857 [place] OFFICE/OUTPATIENT ESTABLISHED MOD MDM 30 MIN Normal [facility] Urine Cultureon 12-15-2024 Bacteria identified Cx Nom (U) ORGANISM: Escherichia coli (ESBL) (O:ESCCOLESBL) [place] Count >100,000 Aerobic HELENA Charge (NMIC56) SUSCEPTIBILITY ORGANISM: O:ESCCOLESBL ANTIBIOTIC INTERPRETATION HELENA Amikacin S <16 Amoxacillin/K Clavulanate S <8 Ampicillin R* >16 Ampicillin/Sulbactam R >16 Aztreonam ESBL 8 Cefazolin R* >16 Cefepime R* 4 Ceftazidime ESBL 8 Ceftazidime/Avibactam S <4 Ceftolozane/Tazobactam S <2 Ceftriaxone ESBL >32 Cefuroxime R* >16 Ciprofloxacin R >2 Ertapenem S <0.5 Gentamicin S <2 Levofloxacin R >4 Meropenem S <1 Meropenem/Vaborbactam S <2 Nitrofurantoin S <32 Piperacillin/Tazobactam S <8 Tetracycline R >8 Tigecycline S <2 Tobramycin S <2 Trimethoprim/Sulfamethoxazo le R >2 S = SUSCEPTIBLE I = INTERMEDIATE R = RESISTANT BLANK = DATA NOT AVAILABLE, OR DRUG NOT ADVISABLE OR TESTED R* = RESISTANCE DUE TO EXTENDED SPECTRUM BETA-LACTAMASES ESBL = EXTENDED SPECTRUM BETA-LACTAMASE TFG = THYMIDINE-DEPENDENT STRAIN [place] = BETA-LACTAMASE POSITIVE IB = INDUCIBLE BETA-LACTAMASE. APPEARS IN PLACE OF 'S' WITH SPECIES KNOWN TO POSSESS INDUCIBLE BETA-LACTAMASES. POTENTIALLY THEY MAY BECOME RESISTANT TO ALL B-LACTAM DRUGS. PERFORMED BY: [place] [address] PATHOLOGIST [employer] SALES MANAGER SHERYL REGALADO M.D. Normal [facility] Comment on above: Performed By: #### C UU #### [address] Influenza virus B Ag [Presen ce] in Upper respiratory specimen by Rapid immunoassayon 11-26-2024 FLUBV Ag IA.rapid Ql (Nph) Influenza virus B Ag [Presence] in Upper respiratory specimen by Rapid immunoassay [facility] No Panel Informationon 11-26 Influenza Type A (Rapid) Negative [facility] POC SARS CoV-2 Antigen Negative [facility] No Panel InformationOrdered By: Melvi Vega on 11-26-2024 Quick Strep (POC) [facility] Urine Cultureon 10-16-2024 Bacteria identified Cx Nom (U) 15,000 colonies/ml mixed bacterial skin contaminants 2 Days PERFORMED BY: [facility] [address] [place] [address] PATHOLOGIST FLEET SALES MANAGER SHERYL REGALADO M.D. Normal [facility] Comment on above: Performed By: #### C UU #### [address] Urine cultureOrdered By: Brandon Crane on 10-16-2024 Bacteria identified Cx Nom (U) Urine culture [facility] Office Visiton 01-16-2024 Follow-up visit [id number] Jackelyn Lujan 1965 F Date Provider Department [facility]20[facility] No family history on file Level of Service:9[address] [place] OFFICE/OUTPATIENT ESTABLISHED MOD MDM 30 MIN Normal [facility] Ambulatory Visit Summaryon 0 04-25-2023 Ambulatory Visit Summary PALLAVI LUJAN :1965 Visit Date:04/25/2023 Ambulatory Visit Instructions Your Diagnosis Iron deficiency anemia Your Care Team Attending Physician - ANNABEL BERRY, David Murphy Primary Care Physician - Wniston Crane MD This Is Your Medications List Contact [...] longer receiving treatment for. Arthritis Numbness Normal [facility] General Surgery Office/Clini c Noteon 04-25-2023 [...] SARS-CoV-2 (COVID-19) mRNA-1273 vaccine 04/19/2021 Recorded Normal [facility] Comment on above: Result Comment: Elec tronically Signed By: ANNABEL BERRY, David Joyce\Date and Time Signed: 04/25/23 16:13 EDT Pathology Noteon 04-16-2023 Pathology Note [id number]#1.00CD:127 Normal [facility] Outside Colonoscopyon 2022 Outside Colonoscopy [id number]#1.00CD:127 Normal [facility] Reminderson 04-12-2023 Reminders - From: Myra Escobedo LPN To: GSN - Clinical; Sent: 04/12/2023 13:58:02 EDT Show up: 03/11/2033 07:00:00 EDT Subject: colonoscopy recall Due Date/Time: 04/11/2033 07:00:00 EDT Reminder/Recall Patient due for screening colonoscopy 04/11/2033. Normal [facility] Pre-Certification Formon Pre-Certification Form [id number]#1.00CD:127 [facility] Consent for Procedure/Surger yon 02-16-2023 Consent for Procedure/Surgery [id number]#1.00CD:127 [facility] Facesheeton 02-15-2023 Facesheet [id number]#1.00CD:127 [facility] Ambulatory Visit Summaryon 0 02-14-2023 Ambulatory Visit Summary PALLAVI LUJAN :1965 Visit Date:02/14/2023 Ambulatory Visit Instructions Your Care Team Attending Physician - ANNABEL BERRY, David Murphy Primary Care Physician - Deepak BERRY, Winston This Is Your Medications List aspirin [...] longer receiving treatment for. Arthritis Numbness Normal [facility] Physician Referralon 023 Physician Referral [id number]#1.00CD:127 Normal [facility] INSULINon 01-17-2023 Insulin 7.1 uIU/mL Normal 2.6-24.9 [facility] Comment on above: Performed By: #### I NSULIN #### [facility] [address] [address] [address] Demetri Leahy CBC AUTO DIFFon 01-16-2023 BASO # 0.0 103/ul Normal 0.0-0.1 [facility] Comment on above: Performed By: #### C BC #### [facility] [address] [address] [address] Demetri Leahy Basophils/100 WBC (Bld) 0.7 % Normal 0.2-2.0 [facility] Comment on above: Performed By: #### C BC #### [facility] [address] [address] [address] Demetri Leahy EO # 0.1 103/ul Normal 0.0-0.7 [facility] Comment on above: Performed By: #### C BC #### [facility] [address] [place] [address] Dr. Demetri Leahy Eosinophils/100 WBC (Bld) 2.4 % Normal 0.9-7.0 [facility] Comment on above: Performed By: #### C BC #### [facility] [address] [place] [address] Dr. Demetri Leahy Erythrocyte distribution width (RBC) [Ratio] 12.9 % Normal 11.0-15.0 [facility] Comment on above: Performed By: #### C BC #### [facility] [address] [place] [address] Dr. Demetri Leahy Hematocrit (Bld) [Volume fraction] 32.3 % Critically low 36.0-48.0 [facility] Comment on above: Performed By: #### C BC #### [facility] [address] [place] [address] Dr. Demetri Leahy Hemoglobin (Bld) [Mass/Vol] 10.5 g/dL Critically low 12.0-16.0 [facility] Comment on above: Performed By: #### C BC #### [facility] [address] [place] [address] Dr. Demetri Leahy IG # 0.01 10e3/ul Normal 0.00-0.03 [facility] Comment on above: Performed By: #### C BC #### [facility] [address] [place] [address] Dr. Demetri Leahy IG % 0.2 % Normal 0.0-0.5 [facility] Comment on above: Performed By: #### C BC #### [facility] [address] [place] [address] Dr. Demetri Leahy LYMPH # 1.3 103/ul Normal 1.2-3.8 [facility] Comment on above: Performed By: #### C BC #### [facility] [address] [place] [address] Dr. Demetri Leahy Lymphocytes/100 WBC (Bld) 21.9 % Normal 20.5-60.0 [facility] Comment on above: Performed By: #### C BC #### [facility] [address] [place] [address] Dr. Demetri Leahy MANUAL DIFF REQ NO Normal [facility] Comment on above: Performed By: #### C BC #### [facility] [address] [place] [address] Dr. Demetri Leahy MCH (RBC) [Entitic mass] 31.4 pg Normal 26.7-34.0 [facility] Comment on above: Performed By: #### C BC #### [facility] [address] [place] [address] Dr. Demetri Leahy MCHC (RBC) [Mass/Vol] 32.5 g/dL Normal 29.9-35.2 [facility] Comment on above: Performed By: #### C BC #### [facility] [address] [place] [address] Dr. Demetri Leahy MCV (RBC) [Entitic vol] 96.7 fL Normal 81.0-99.0 [facility] Comment on above: Performed By: #### C BC #### [facility] [address] [place] [address] Dr. Demetri Leahy MONO # 0.6 103/ul Normal 0.3-0.8 [facility] Comment on above: Performed By: #### C BC #### [facility] [address] [place] [address] Dr. Demetri Leahy Monocytes/100 WBC (Bld) 9.9 % Normal 1.7-12.0 [facility] Comment on above: Performed By: #### C BC #### [facility] [address] [place] [address] Dr. Demetri Leahy NEUT # 3.9 103/ul Normal 1.4-6.5 [facility] Comment on above: Performed By: #### C BC #### [facility] [address] [place] [address] Dr. Demetri Leahy Neutrophils/100 WBC (Bld) 64.9 % Normal 43.0-75.0 [facility] Comment on above: Performed By: #### C BC #### [facility] [address] [place] [address] Dr. Demetri Leahy Platelet mean volume (Bld) [Entitic vol] 9.0 fL Critically low 9.5-13.5 [facility] Comment on above: Performed By: #### C BC #### [facility] [address] [address] [address] Demetri Leahy PLT 210 103/ul Normal 150-450 [facility] Comment on above: Performed By: #### C BC #### [facility] [address] [place] [address] Dr. Demetri Leahy RBC 3.34 106/ul Critically low 4.20-5.40 [facility] Comment on above: Performed By: #### C BC #### [facility] [address] [place] [address] Dr. Demetri Leahy WBC 5.9 103/ul Normal 4.0-11.0 [facility] Comment on above: Performed By: #### C BC #### [facility] [address] [address] [address] Demetri Leahy FREE THYROXINE INDEX T7on FTI 2.05 Normal 1.30-4.50 [facility] Comment on above: Performed By: #### T 7, TSH, LIPID, CMP #### [facility] [address] [place] [address] Dr. Demetri Leahy T3U 36.0 % Normal 30.0-39.0 [facility] Comment on above: Performed By: #### T 7, TSH, LIPID, CMP #### [facility] [address] [place] [address] Dr. Demetri Leahy T4 [Mass/Vol] 5.70 ug/dL Normal 4.80-13.90 [facility] Comment on above: Performed By: #### T 7, TSH, LIPID, CMP #### [facility] [address] [place] [address] Dr. Demetri Leahy GLYCOHEMOGLOBIN A1Con 2022 ADA RECOMMENDATION SEE BELOW Normal [facility] Comment on above: Result Comment: ADA RECOMMENDED LIMIT 4.0 - 6.0 ADA THERAPEUTIC TARGET < 7.0 ACTION SUGGESTED > 7.0 Performed By: #### A 1C #### [facility] [address] [address] [address] Demetri Leahy Glucose [Mass/Vol] 88 mg/dL Normal [facility] Comment on above: Performed By: #### A 1C #### [facility] [address] [address] [address] Demetri Leahy HbA1c (Bld) [Mass fraction] 4.7 % Normal 4.5-6.2 [facility] Comment on above: Performed By: #### A 1C #### [facility] [address] [place] [address] Dr. Demetri Leahy IRONon 01-16-2023 Iron [Mass/Vol] 41.0 ug/dL Critically low 50.0-170.0 [facility] Comment on above: Performed By: #### I BRYAN #### [facility] [address] [place] [address] Dr. Demetri Leahy LIPID PROFILEon 01-16-2023 CHOL-HDL RATIO NORM SEE BELOW Normal [facility] Comment on above: Result Comment: 3.3 - 4.4 LOW RISK 4.4 - 7.1 AVERAGE RISK 7.1 - 11.0 MODERATE RISK >11.0 HIGH RISK Performed By: #### T 7, TSH, LIPID, CMP #### [facility] [address] [place] [address] Dr. Demetri Leahy Cholesterol [Mass/Vol] 145 mg/dL Normal <=200 [facility] Comment on above: Performed By: #### T 7, TSH, LIPID, CMP #### [facility] [address] [place] [address] Dr. Demetri Leahy Cholesterol in HDL [Mass/Vol] 71 mg/dL Critically high 40-60 [facility] Comment on above: Performed By: #### T 7, TSH, LIPID, CMP #### [facility] [address] [address] [address] Demetri Leahy Cholesterol in LDL [Mass/Vol] 42.4 mg/dL Normal [facility] Comment on above: Performed By: #### T 7, TSH, LIPID, CMP #### [facility] [address] [place] [address] Dr. Demetri Leahy Cholesterol.total/Ch olesterol in HDL [Mass ratio] 2.0 {ratio} Normal [facility] Comment on above: Performed By: #### T 7, TSH, LIPID, CMP #### [facility] [address] [address] [address] Demetri Leahy HDL NORMAL > or = 60 mg/dl - LO W CARDIOVASCULAR RISK <40 mg/dl - HIGH CARDIOVASCULAR RISK Normal [facility] Comment on above: Performed By: #### T 7, TSH, LIPID, CMP #### [facility] [address] [place] [address] Dr. Demetri Leahy LDL CALC NORMAL SEE BELOW Normal [facility] Comment on above: Result Comment: <100 mg/dl OPTIMAL 100 - 129 mg/dl NEAR OR ABOVE OPTIMAL 130 - 159 mg/dl BORDERLINE HIGH 160 - 189 mg/dl HIGH >190 mg/dl VERY HIGH Performed By: #### T 7, TSH, LIPID, CMP #### [facility] [address] [place] [address] Dr. Demetri Leahy Triglyceride [Mass/Vol] 158 mg/dL Critically high <=150 [facility] Comment on above: Performed By: #### T 7, TSH, LIPID, CMP #### [facility] [address] [place] [address] Dr. Demetri Leahy VLDL CALC 31.6 mg/dL Normal [facility] Comment on above: Performed By: #### T 7, TSH, LIPID, CMP #### [facility] [address] [place] [address] Dr. Demetri Leahy OCC BLD IMMUNO SCREENon - OCCULT BLOOD Negative Normal NEGATIVE [facility] Comment on above: Performed By: #### T 7, TSH, LIPID, CMP #### [facility] [address] [place] [address] Dr. Demetri Leahy PROF 14(COMP METB)on 023 Albumin [Mass/Vol] 3.8 g/dL Normal 3.4-5.0 [facility] Comment on above: Performed By: #### T 7, TSH, LIPID, CMP #### [facility] [address] [address] [address] Demetri Leahy Albumin/Globulin [Mass ratio] 1.2 {ratio} Normal [facility] Comment on above: Performed By: #### T 7, TSH, LIPID, CMP #### [facility] [address] [address] [address] Demetri Leahy ALP [Catalytic activity/Vol] 50 U/L Normal 46-116 [facility] Comment on above: Performed By: #### T 7, TSH, LIPID, CMP #### [facility] [address] [place] [address] Dr. Demetri Leahy ALT [Catalytic activity/Vol] 53 U/L Normal 14-59 [facility] Comment on above: Performed By: #### T 7, TSH, LIPID, CMP #### [facility] [address] [place] [address] Dr. Demetri Leahy Anion gap [Moles/Vol] 14.1 mmol/L Normal [facility] Comment on above: Performed By: #### T 7, TSH, LIPID, CMP #### [facility] [address] [place] [address] Dr. Demetri Leahy AST [Catalytic activity/Vol] 36 U/L Normal 15-37 [facility] Comment on above: Performed By: #### T 7, TSH, LIPID, CMP #### [facility] [address] [place] [address] Dr. Demetri Leahy Bilirubin [Mass/Vol] 0.4 mg/dL Normal 0.2-1.0 [facility] Comment on above: Performed By: #### T 7, TSH, LIPID, CMP #### [facility] [address] [place] [address] Dr. Demetri Leahy Calcium [Mass/Vol] 9.0 mg/dL Normal 8.5-10.1 [facility] Comment on above: Performed By: #### T 7, TSH, LIPID, CMP #### [facility] [address] [address] [address] Demetri Leahy Chloride [Moles/Vol] 109 mmol/L Critically high 98-107 [facility] Comment on above: Performed By: #### T 7, TSH, LIPID, CMP #### [facility] [address] [address] [address] Demetri Leahy CO2 [Moles/Vol] 28.0 mmol/L Normal 21.0-32.0 [facility] Comment on above: Performed By: #### T 7, TSH, LIPID, CMP #### [facility] [address] [place] [address] Dr. Demetri Leahy Creatinine [Mass/Vol] 0.79 mg/dL Normal 0.55-1.02 [facility] Comment on above: Performed By: #### T 7, TSH, LIPID, CMP #### [facility] [address] [place] [address] Dr. Demetri Leahy EGFR-AF ESTONIAN >60 Normal >=60 [facility] Comment on above: Performed By: #### T 7, TSH, LIPID, CMP #### [facility] [address] [place] [address] Dr. Demetri Leahy EGFR-NON AF ESTONIAN >60 Normal >=60 [facility] Comment on above: Performed By: #### T 7, TSH, LIPID, CMP #### [facility] [address] [address] [address] Demetri Leahy Globulin (S) [Mass/Vol] 3.3 g/dL Normal [facility] Comment on above: Performed By: #### T 7, TSH, LIPID, CMP #### [facility] [address] [place] [address] Dr. Demetri Leahy Glucose [Mass/Vol] 86 mg/dL Normal 74-106 [facility] Comment on above: Performed By: #### T 7, TSH, LIPID, CMP #### [facility] [address] [place] [address] Dr. Demetri Leahy Potassium [Moles/Vol] 4.1 mmol/L Normal 3.5-5.1 [facility] Comment on above: Performed By: #### T 7, TSH, LIPID, CMP #### [facility] [address] [address] [address] Demetri Leahy Protein [Mass/Vol] 7.1 g/dL Normal 6.4-8.2 [facility] Comment on above: Performed By: #### T 7, TSH, LIPID, CMP #### [facility] [address] [place] [address] Dr. Demetri Leahy Sodium [Moles/Vol] 147 mmol/L Critically high 136-145 [facility] Comment on above: Performed By: #### T 7, TSH, LIPID, CMP #### [facility] [address] [place] [address] Dr. Demetri Leahy Urea nitrogen [Mass/Vol] 30.0 mg/dL Critically high 7.0-18.0 [facility] Comment on above: Performed By: #### T 7, TSH, LIPID, CMP #### [facility] [address] [place] [address] Dr. Demetri Leahy Urea nitrogen/Creatinine [Mass ratio] 38.0 mg/mg Normal [facility] Comment on above: Performed By: #### T 7, TSH, LIPID, CMP #### [facility] [address] [place] [address] Dr. Demetri Leahy Quick Strepon 01-16-2023 S. pyogenes Org specific cx Ql (Throat) Negative [employer] [facility] [employer] Other Quick Strep [facility] [employer] Other TSHon 01-16-2023 TSH 1.389 uIU/mL Normal 0.358-3.74 0 [facility] Comment on above: Performed By: #### T 7, TSH, LIPID, CMP #### [facility] [address] [place] [address] Dr. Demetri Leahy COVID/FLU RT-PCRon 2 SARS-CoV-2 (COVID-19) RNA KARTHIK+probe Ql (Unsp spec) Negative [employer] Other COVID/FLU RT-PCR Negative [employer] Other Quick Strepon 09-04-2022 S. pyogenes Org specific cx Ql (Throat) Negative [employer] Other Quick Strep [employer] Other COVID/FLU RT-PCRon 2 SARS-CoV-2 (COVID-19) RNA KARTHIK+probe Ql (Unsp spec) Negative [employer] Other COVID/FLU RT-PCR Negative [employer] Other Quick Strep[employer] 08-27-2022 S. pyogenes Org specific cx Ql (Throat) Negative [employer] Other Quick Strep [employer] Other PROF CHEM 8 (BAS METB)on Anion gap [Moles/Vol] 13.6 mmol/L Normal [facility] Comment on above: Performed By: #### B MP #### [facility] [address] [address] [address] Demetri Leahy Calcium [Mass/Vol] 9.0 mg/dL Normal 8.5-10.1 [facility] Comment on above: Performed By: #### B MP #### [facility] [address] [address] [address] Demetri Laehy Chloride [Moles/Vol] 105 mmol/L Normal 98-107 [facility] Comment on above: Performed By: #### B MP #### [facility] [address] [address] [address] Demetri Leahy CO2 [Moles/Vol] 26.9 mmol/L Normal 21.0-32.0 [facility] Comment on above: Performed By: #### B MP #### [facility] [address] [address] [address] Demetri Leahy Creatinine [Mass/Vol] 1.04 mg/dL Critically high 0.55-1.02 [facility] Comment on above: Performed By: #### B MP #### [facility] [address] [address] [address] Demetri Leahy EGFR-AF ESTONIAN >60 Normal >=60 [facility] Comment on above: Performed By: #### B MP #### [facility] [address] [address] [address] Demetri Leahy EGFR-NON AF ESTONIAN 54 mL/min/1.73m2 Critically low >=60 [facility] Comment on above: Performed By: #### B MP #### [facility] [address] [address] [address] Demetri Leahy Glucose [Mass/Vol] 99 mg/dL Normal 74-106 [facility] Comment on above: Performed By: #### B MP #### [facility] [address] [address] [address] Demetri Leahy Potassium [Moles/Vol] 4.5 mmol/L Normal 3.5-5.1 [facility] Comment on above: Performed By: #### B MP #### [facility] [address] [address] [address] Demetri Leahy Sodium [Moles/Vol] 141 mmol/L Normal 136-145 [facility] Comment on above: Performed By: #### B MP #### [facility] [address] [address] [address] Demetri Leahy Urea nitrogen [Mass/Vol] 44.0 mg/dL Critically high 7.0-18.0 [facility] Comment on above: Performed By: #### B MP #### [facility] [address] [address] [address] Demetri Leahy Urea nitrogen/Creatinine [Mass ratio] 42.3 mg/mg Normal [facility] Comment on above: Performed By: #### B MP #### [facility] [address] [address] [address] Demetri Leahy PROF CHEM 8 (BAS METB)on Anion gap [Moles/Vol] 10.3 mmol/L Normal [facility] Comment on above: Performed By: #### B MP #### [facility] [address] [address] [address] Demetri Leahy Calcium [Mass/Vol] 8.6 mg/dL Normal 8.5-10.1 [facility] Comment on above: Performed By: #### B MP #### [facility] [address] [address] [address] Demetri Leahy Chloride [Moles/Vol] 107 mmol/L Normal 98-107 [facility] Comment on above: Performed By: #### B MP #### [facility] [address] [address] [address] Demetri Leahy CO2 [Moles/Vol] 29.0 mmol/L Normal 21.0-32.0 [facility] Comment on above: Performed By: #### B MP #### [facility] [address] [address] [address] Demetri Leahy Creatinine [Mass/Vol] 1.42 mg/dL Critically high 0.55-1.02 [facility] Comment on above: Performed By: #### B MP #### [facility] [address] [address] [address] Demetri Leahy EGFR-AF ESTONIAN 46 mL/min/1.73m2 Critically low >=60 [facility] Comment on above: Performed By: #### B MP #### [facility] [address] [address] [address] Demetri Leahy EGFR-NON AF ESTONIAN 38 mL/min/1.73m2 Critically low >=60 [facility] Comment on above: Performed By: #### B MP #### [facility] [address] [address] [address] Demetri Leahy Glucose [Mass/Vol] 91 mg/dL Normal 74-106 [facility] Comment on above: Performed By: #### B MP #### [facility] [address] [address] [address] Demetri Leahy Potassium [Moles/Vol] 5.3 mmol/L Critically high 3.5-5.1 [facility] Comment on above: Performed By: #### B MP #### [facility] [address] [place], [place] [address] Dr. Demetri Leahy Sodium [Moles/Vol] 141 mmol/L Normal 136-145 [facility] Comment on above: Performed By: #### B MP #### [facility] [address] [place], [place] [address] Dr. Demetri Leahy Urea nitrogen [Mass/Vol] 48.0 mg/dL Critically high 7.0-18.0 [facility] Comment on above: Performed By: #### B MP #### [facility] [address] [address] [address] Demetri Leahy Urea nitrogen/Creatinine [Mass ratio] 33.8 mg/mg Normal [facility] Comment on above: Performed By: #### B MP #### [facility] [address] [address] [address] Demetri Leahy ELBOW COMPLETE MIN. 3 VIE on 07-10-2021 ELBOW COMPLETE MIN. 3 VIEWS Patient Name: PALLAVI LUJAN STUDY: ELBOW COMPLETE MIN 3 VIEWS Left INDICATION: L elbow trauma. COMPARISON: None ACCESSION NUMBER(S): [id number] ORDERING CLINICIAN: JACQUELINE ROBLES FINDINGS: Heterotopic ossification adjacent to the medial epicondyle of the distal humerus suggesting either chronic epicondylitis or remote injury. No acute fracture dislocation. IMPRESSION: Heterotopic ossification adjacent to the medial epicondyle of the distal humerus suggesting either chronic epicondylitis or remote injury. Electronically signed by: DOLORES PRICE MD Normal [facility] BN KNEE; COMPLT, 4 OR MORE V [facility] 07-10-2021 BN KNEE; COMPLT, 4 OR MORE VIEWS Patient Name: PALLAVI LUJAN STUDY: KNEE; COMPLT, 4 OR MORE VIEWS INDICATION: knee injury after fall. COMPARISON: None ACCESSION NUMBER(S): [id number] ORDERING CLINICIAN: ADELSO LUTHER FINDINGS: Mild osteoarthritis right knee with small posterior loose body. Remote posttraumatic changes from prior MCL injury with heterotopic ossification. No acute fracture or osseous abnormality otherwise. IMPRESSION: Mild osteoarthritis right knee with small posterior loose body. Remote posttraumatic changes from prior MCL injury with heterotopic ossification. Electronically signed by: DOLORES PRICE MD Normal [facility] NR CT C-SPINE WO CONTRASTon 07-10-[address] C-SPINE WO CONTRAST Patient Name: PALLAVI LUJAN STUDY: CT HEAD WO CONTRAST; CT C-SPINE WO CONTRAST; 07/10/2021 6:48 pm INDICATION: intox, head trauma, Lie Flat: Yes; fall at [employer], neck pain, Lie Flat: Yes COMPARISON: None. ACCESSION NUMBER(S): [id number]; [id number] ORDERING CLINICIAN: JACQUELINE LUTHER TECHNIQUE: Axial noncontrast [...] This study was interpreted at [facility], [place], [place]. Electronically signed by: ANDRIY PERKINS DO Normal [facility] NR CT HEAD WO CONTRASTon NR CT HEAD WO CONTRAST Patient Name: PALLAVI LUJAN STUDY: CT HEAD WO CONTRAST; CT C-SPINE WO CONTRAST; 07/10/2021 6:48 pm INDICATION: intox, head trauma, Lie Flat: Yes; fall at [employer], neck pain, Lie Flat: Yes COMPARISON: None. ACCESSION NUMBER(S): [id number]; [id number] ORDERING CLINICIAN: JACQUELINE ROBLES; ADELSO LUTHER TECHNIQUE: [...] This study was interpreted at [facility], [place], [place]. Electronically signed by: ANDRIY PERKINS, DO Normal [facility] Provider Note - ED v3on 06-22 Provider [...] without assoc (more content not included)... Normal [facility] Risk Screen - Adult Emergenc yon 07-10-2021 Risk Screen - Adult Emergency Preferred Language: Preferred Language: Preferred Language for Discussing Health Care (patient/designee)Greenlandic Advanced Directives: Advance Directive/DNRno Advance Directive Information [...] Communicatenone Learning Preferencesaudio Cultural Considerationsnone Developmental Considerationsnone Faith Considerationsnone Other Learnersnone Learning Assessment (Other Learner): Learning Assessment (Other Learner): Other learner availableno Pressure Injury/TB/Substance: Pressure Injury: Pressure Injury Present on Admissionno Do you have a coughno Smoking Statusnever smoker (1) Alcohol Usedenies(1) Drug Usedenies (1) Drug 2 Usedenies (1) Admission Risk Screen: Significant IndicatorsComplete CAGE: CAGE: Is this an injured patient at a Trauma Center ([facility]): no Electronic Signatures: Uzma Menendez (RN) (Signed 10-Jul-2021 18:54) Authored: Preferred Language, Advanced Directives, Family Violence Adult, Learning Assessment (Patient), Learning Assessment (Other Learner), Pressure Injury/TB/Substance, Pressure Injury, CAGE Last Updated: 10-Jul-2021 18:54 by Uzma Menendez (RN) References: 1. Data Referenced From Provider Note - ED v3 10-Jul-2021 17:29 Normal [facility] Triage - EDon 07-10-2021 Triage - ED [...] BMI (kg/m2): 34.485 Calculated BSA (m2) 2.08 [place] Coma Scale: Best Eye Response: (E4) spontaneous [...] 10-Jul-2021 17:15 by Lazarus Gupta (CONSUELO) Normal [facility] Cardiovascular Lab Reporton 09-22-2020 Cardiovascular Lab Report [facility] Patient Name: Pallavi Lujan [facility] MR #: [id number] Physician: Patrice No, Department of M.D. Medicine Service Date: 09/21/2020 Division of Birthdate: 1965 Cardiology Room #: Adult Cardiovascular Services [place] [address] Cardiovascular Laboratory Report FINAL IMPRESSIONS: 1. Mild [...] right internal jugular vein was obtained. A 6-German 11 cm sheath was inserted without difficulty. [...] the right radial artery was obtained. A 6-German glide sheath was inserted without difficulty. Bilateral [...] P Patrice No M.D. Date Dict: 09/21/2020/04:38 P/Patrice No M.D. Date Trans: 09/22/2020 02:14 A/elma [id number] cc: Winston Crane M.D. [address] [address] [facility] CNPN Telephone (COVHLD) PALLAVI LUJAN ([id number]) 1965 F Date Time Provider Department 02/01/20 ARLETTE ABRAHAM) NOELLE During your visit today, we recorded the following information about you: Arlette Abraham PA-C, EUGENIA 02/01/2020 10:03 AM Signed [place], Thank you for the referral, this patient meets criteria for COVID-19 testing in accordance with criteria found on the [facility] Intranet COVID19 Toolkit as of February 01, 2020 10:02 AM Please inform the patient that the test has been ordered, and that the [facility] Scheduling Department will call to schedule [...] by: Vikas Mendoza) Nicanor - Fully Assessed Reason for Visit: Covid-19 Hotline [3885] Primary Visit Diagnosis:Suspected Covid-19 Virus Infection [R68.89] Order(s):2019 CORONAVIRUS [SQCOVID] Order #: [id number] FUTURE MYCHART COVID-19 HOME MONITORING [5027128] Order #: [id number] Prescriptions as of 02/01/2020 Sig: ATORVASTATIN 80 [...] 40.0-44.9, adult (HCC) [Z68.41] Encounter Status:Closed by ARLETTE ABRAHAM on [facility]/01/20 [facility] PALLAVI LUJAN ([id number]) 1965 F Date Time Provider Department 02/01/20 DEBBIE COSTA (RN) BLAZE During your visit today, we recorded the following information about you: Debbie Costa, RN, RN 02/01/2020 9:32 AM Signed Telephone Nurse Triage for Flu-like symptoms Patient evaluated by telephone nursing triage.patient seen at [facility] ED last nite.-Dx Bronchitis. zpak started and Prescribed Albuterol. Advised by ED to have COVID-19. H/o HTN. No SOB. Temp currently 99.7. assisted pt signon to [facility]. Palalvi Lujan is a female who presents with [...] acetaminophen overdose can hurt the liver. ? [employer], the company that makes Tylenol, has different dosage instructions for Tylenol in [place] and the [place]. In [place], the maximum recommended dose per day is 4,000 mg or twelve (12) Regular-Strength (325 mg) pills. In the [place], [employer] recommends a maximum dose of ten (10) Regular-Strength (325 mg) pills. ? Before taking any medicine, read all the instructions on the package. PATIENT INSTRUCTIONS: At present, these are our recommendations regarding the coronavirus (COVID-19) outbreak: - Wash your hands regularly for at least 20 seconds with soap and water, especially before eating. - If soap/water are unavailable, use a hand neuropsychologist with at least 60% alcohol - Avoid [...] large groups of people (sporting events, concerts, [employer] ab[employer]a, etc). - Avoid unnecessary domestic and international travel, including travel through large international airports. - If traveling, wipe down your airplane seat (and tray) with a disinfecting wipe. If you have a fever, cough or shortness of breath, or are otherwise concerned you have COVID-19, we ask that you do not come to any [facility] facility without calling your primary care physician or speaking to a provider using a virtual visit using [facility] [employer]? Online. You will be evaluated to determine [...] Additional information can be found on the [facility] and [facility] web sites: https://www.cdc.gov/coronav irus/2019-nCoV/index.html ? [email or web address] SIGNATURE: Debbie Costa RN PATIENT NAME: Pallavi [...] by DEBBIE COSTA RN on 02/01/20 Normal [facility] Coronavirus 2019on 0 COVID 19 Result CRIME SCENE ANALYST Negative Normal Negative for COVID19 (SARS CoV2) by PCR. [facility] Comment on above: Result Comment: This test was developed and its performance characteristics determined by [facility]'s [facility] [place]. This test has been authorized by FDA under an Emergency Use Authorization (EUA). This test has been validated in accordance with the FDA's Guidance Document Policy for Diagnostics Testing in Laboratories Certified to Perform High Complexity Testing under CLIA prior to Emergency use Authorization for Coronavirus Disease 2019 during the Public Health Emergency issued on December 20, 2019. Performed By: #### C OVID ####[facility] [address] [place], [place] [phone] COVID 19 Source CRIME SCENE ANALYST Nasopharyngeal Swab Normal [facility] Comment on above: Performed By: #### C OVID ####[facility] [place], [place] [phone] PROGRESSon 02-01-2020 PROGRESS HNO ID: [id number] Author: Cherelle Weir (Rufina) EUGENIA Nuñez Service: ? Author Type: Physician Head Of Data Type: Progress Notes Filed: 02/01/2020 12:52 PM Note Text: Telemedicine Visit - Distance Health Virtual Visit Note This Team Access Model visit is a virtual encounter. It required patient-provider interaction for the medical decision making as documented below. Patient seen on [employer] Online platform. Location of patient: [place] History of Present Illness Pallavi Lujan is [...] in providing you the best care. Normal [facility] PROGRESS HNO ID: [id number] Author: Cynthia Vickers (Pa) Service: ? Author Type: Physician Head Of Data Type: Progress Notes Filed: 02/01/2020 9:56 AM Note Text: Telemedicine Visit - Distance Health Telephone Visit Note This Team Access Model visit is a virtual encounter. It required patient-provider interaction for the medical decision making as documented below. The patient is a [facility] employee: No Location of patient: [place] History of Present Illness Pallavi Lujan is a 54 year old female who presents with 1 days of symptoms that are stable. Pt reports that yesterday she all of a sudden felt unwell. Went to ER in [place] last night and reports that tested negative [...] fail to improve Cynthia Vickers PA-C Normal [facility] CNOVon 05-26-2019 CNOV Office Visit (GSPSMN ) PALLAVI LUJAN ([id number]) 1965 F Date Time Provider Department 05/26/19 1:00 PM AMELIE ROBLEDO GSPSMN During your visit today, we recorded the following information about you: Amelie Robledo, PHD 05/26/2019 2:28 PM Signed [facility] BARIATRIC SURGERY BEHAVIORAL HEALTH EVALUATION DATE OF SERVICE: 05/26/2019 TIME OF SERVICE: 1:10 PM - 2:10 PM COST CENTER: 3B CPT CODE: 50097 Psychiatric diagnostic evaluation BILLING CODE: ENDO PSYL [...] strategies have been effective. The patient notes baptist practice is: Church; will think about whether she'd take blood [...] AFTER COMPLETION OF GROUP (To schedule, call [phone]) *Continue to avoid alcohol in preparation for [...] emotional and behavioral readiness (To schedule call [phone]) *Read Preparing for Weight Loss Surgery: Workbook (Treatments That Work) by Kris Bazzi, Reji Ndiaye, and Monse Alcantar ([employer], 2006) *continue CPAP Adherence *implement [...] any questions. Amelie Robledo Ph.D., Clinical Psychologist; [facility] Director of Behavioral Services BEHAVIORAL HEALTH BARIATRIC [...] Allergies) Date Reviewed: 05/19/2019 Reviewed by: Vikas (Rd) Nicanor - Fully Assessed Primary Visit Diagnosis:Psychological [...] by AMELIE ROBLEDO PHD on 05/26/19 Normal [facility] CNOV Office Visit (GSPSMN ) PALLAVI LUJAN ([id number]) 1965 F Date Time Provider Department 05/26/19 12:00 PM PSYL TESTING MAIN GSPSMN During your visit today, we recorded the following information about you: Amelie Robledo, PHD 05/26/2019 3:52 PM Signed [facility] PSYCHOLOGICAL TEST REPORT PATIENT: Pallavi Lujan ( ) TEST ADMINISTERED: [place] Multiphasic Personality Inventory-2 Restructured Form (MMPI2-RF) Binge Eating Questionnaire (BEQ) DATE: ADMINISTERED: May 26, 2019 DATE REVIEWED: May 26, 2019 TIME REVIEWED (start/stop): 3:17 PM - 3:55 PM BILL / Venkat, CPT#: 64686.59 computer administration of test. 02423 (1 unit) The patient completed the MMPI2-RF in the [facility] [place] and was proctored by trained personnel. The technical document writer was available for help with the [...] AFTER COMPLETION OF GROUP (To schedule, call [phone]) *Continue to avoid alcohol in preparation for [...] emotional and behavioral readiness (To schedule call [phone]) *Read Preparing for Weight Loss Surgery: Workbook (Treatments That Work) by Kris Bazzi, Reji Ndiaye, and Monse Alcantar ([employer], 2006) *continue CPAP Adherence *implement [...] patient can request a written copy through [employer]. This report is not intended for [...] by AMELIE ROBLEDO PHD on 05/26/19 [facility] PROGRESSon 05-26-2019 PROGRESS HNO ID: [id number] Author: Amelie Robledo Service: ? Author Type: Physician Type: Progress Notes Filed: 05/26/2019 3:52 PM Note Text: [facility] BARIATRIC AND METABOLIC MODEL PSYCHOLOGICAL TEST REPORT PATIENT: Pallavi Lujan ( ) TEST ADMINISTERED: [place] Multiphasic Personality Inventory-2 Restructured Form (MMPI2-RF) Binge Eating Questionnaire (BEQ) DATE: ADMINISTERED: May 26, 2019 DATE REVIEWED: May 26, 2019 TIME REVIEWED (start/stop): 3:17 PM - 3:55 PM BILL / Venkat, CPT#: 33930.59 computer administration of test. 12652 (1 unit) The patient completed the MMPI2-RF in the [facility] Metabolic [place] and was proctored by trained personnel. The technical document writer was available for help with the [...] AFTER COMPLETION OF GROUP (To schedule, call [phone]) *Continue to avoid alcohol in preparation for [...] emotional and behavioral readiness (To schedule call [phone]) *Read Preparing for Weight Loss Surgery: Workbook (Treatments That Work) by Kris Bazzi, Reji Ndiaye, and Monse Alcantar ([employer], 2006) *continue CPAP Adherence *implement [...] patient can request a written copy through [employer]. This report is not intended for forensic purposes. Amelie Robledo, Ph.D. Psychologist [facility] PROGRESS HNO ID: [id number] Author: Amelie Robledo Service: ? Author Type: Physician Type: Progress Notes Filed: 05/26/2019 2:28 PM Note Text: [facility] BARI[facility] METABOLIC INSTITUTE BARIATRIC SURGERY BEHAVIORAL HEALTH EVALUATION DATE OF SERVICE: 05/26/2019 TIME OF SERVICE: 1:10 PM - 2:10 PM COST CENTER: 3BO CPT CODE: 47724 Psychiatric diagnostic evaluation BILLING CODE: ENDO PSYL MAIN GN8/[place] DATE OF FIRST SERVICE THIS CYCLE: 05/26/2019 SESSION #: 1 The patient signed the Informed Consent for Psychological Evaluation AND Care Form, and the [facility] care insurance benefits, fees for service, emergency [...] life as good. The patient will have Fahda help her after surgery during the recovery [...] strategies have been effective. The patient notes [employer] practice is: Church; will think about whether she'd take blood [...] AFTER COMPLETION OF GROUP (To schedule, call [phone]) *Continue to avoid alcohol in preparation for [...] emotional and behavioral readiness (To schedule call [phone]) *Read Preparing for Weight Loss Surgery: Workbook (Treatments That Work) by Kris Bazzi, Reji Ndiaye, and Monse Alcantar ([employer], 2006) *continue CPAP Adherence *implement [...] any questions. Amelie Robledo Ph.D., Clinical Psychologist; [facility] Director of Behavioral Services BEHAVIORAL HEALTH BARIATRIC EVALUATION SUMMARY DATE : 05/26/2019 PATIENT NAME: Ms. Pallavi Lujan 1. Consent: Fair 2. Expectations:Fair 3. Social support :Good 4. Mental Health :Good 5. Chemical/Alcohol Abuse/Dependence: Guarded 6. Eating Behaviors:Good 7. Adherence : Good 8. Coping/Stressors:Fair 9. Overall Psychological Impression: Fair [facility] CNCNPATEDon 05-19-2019 CNCNPATED Education (BMIREJ) PALLAVI LUJAN Nora ([id number]) 1965 F Date Time Provider Department 05/19/19 [...] guidelines for weight loss surgery and has [employer] Insurance therefore is required to complete 6 [...] 4. Participate in sitting exercise/therapy as possible. [place] Fahad Marquis 30 minutes each - every other [...] May 19, 2019 TIME: 10:06 AM PAGER: [phone] Primary Visit Diagnosis:Class 3 severe obesity due [...] Nicanor - Fully Assessed Prescriptions as of 05/19/2019 [...] Encounter Status:Closed by VIKAS SANTOS on 05/19/19 [facility] PROGRESSon 05-19-2019 PROGRESS HNO ID: [id number] Author: Vikas (Rd) Nicanor Service: ? Author [...] (CELEBREX) 200 mg capsule - pantoprazole DR VitalePROTONIX) 40 mg tablet No current facility-administered medications [...] guidelines for weight loss surgery and has [employer] Insurance therefore is required to complete 6 [...] Santos RD PATIENT NAME: Pallavi Morelosuse DATE: May 19, 2019 TIME: 10:06 AM PAGER: [phone] [facility] CNCNPATEDon 03-14-2019 CNCNPATED Education (BMIREJ) TAIPALLAVI ([id number]) 1965 F Date Time Provider Department 03/14/19 2:00 PM VIKAS SANTOS (RAVI) BMIREJ Reason for Visit: Reassessment [674] Patient Education [91] Progress Notes: Vikas Santos RD 03/14/2019 5:08 PM Signed [facility] AMBULATORY PATIENT EDUCATION NOTE-Established Shared [...] do you eat deep fried foods (chips, German fries, fried meats, etc) Never How often [...] guidelines for weight loss surgery and has [employer] Insurance therefore is required to complete 6 [...] March 14, 2019 TIME: 4:55 PM PAGER: [phone] Primary Visit Diagnosis:Class 3 severe obesity due [...] Encounter Status:Closed by VIKAS SANTOS on 03/14/19 [facility] PROGRESSon 03-14-2019 PROGRESS HNO ID: [id number] Author: Vikas Santos Service: ? Author Type: Registered Dietitian Type: Progress Notes Filed: 03/14/2019 5:08 PM Note Text: [facility] AMBULATORY PATIENT EDUCATION NOTE-Established Shared [...] do you eat deep fried foods (chips, German fries, fried meats, etc) Never How often [...] guidelines for weight loss surgery and has [employer] Insurance therefore is required to complete 6 [...] SIGNATURE: Vikas Santos RD PATIENT NAME: Pallavi Melendez Tai DATE: March 14, 2019 TIME: 4:55 PM PAGER: [phone] [facility] CNCNPATEDon 02-17-2019 CNCNPATED Education (BMIREJ) PALLAVI LUJAN ([id number]) 1965 F Date Time Provider Department 02/17/19 9:30 AM VIKAS SANTOS (RD) BMIREJ Reason for Visit: Reassessment [674] Patient Education [91] Progress Notes: Vikas Santos RD 02/17/2019 11:26 AM Signed Nutritional Therapy Pre op weight loss surgery Sleeve Gastrectomy Re-Assessment PROGRESS: Nutrition Intervention (date of last encounter 01/17/2019) Read Your Guide to Surgery before next visit - - met 1.? Do not skip meals. - - met 2.? Begin 5009-4441 calorie partial liquid diet (refer to handout) [...] guidelines for weight loss surgery and has [employer] Insurance therefore is required to complete 6 [...] April appointment today prior to leaving at [facility] if preferred location Referred/Supervised by: Flores/Mark MNT Billing Type: Re-assess/15 min 2 units SIGNATURE: Vikas Santos RD PATIENT NAME: Pallavi Lujan DATE: February 17, 2019 TIME: 8:38 AM PAGER: [phone] Primary Visit Diagnosis:Class 3 severe obesity due [...] Encounter Status:Closed by VIKAS SANTOS on 02/17/19 [facility] PROGRESSon 02-17-2019 PROGRESS HNO ID: [id number] Author: Vikas Santos Service: ? Author Type: Registered Dietitian Type: Progress Notes Filed: 02/17/2019 11:26 AM Note Text: Nutritional Therapy Pre op weight loss surgery Sleeve Gastrectomy Re-Assessment PROGRESS: Nutrition Intervention (date of last encounter 01/17/2019) Read Your Guide to Surgery before next visit - - met 1.? Do not skip meals. - - met 2.? Begin 9847-8164 calorie partial liquid diet (refer to handout) [...] guidelines for weight loss surgery and has [employer] Insurance therefore is required to complete 6 months of Nutrition Intervention for clearance for surgery. Today is session 3 of 6. (Juan 12/19/18, Dyu 01/17/19 and RAVI Santos 02/17/19) Nutrition Diagnosis: [...] April appointment today prior to leaving at [facility] if preferred location Referred/Supervised by: Grant MYERS Billing Type: Re-assess/15 min 2 units SIGNATURE: Vikas Santos RD PATIENT NAME: Pallavi Melendez Tai DATE: February 17, 2019 TIME: 8:38 AM PAGER: [phone] [facility] CNOVon 02-14-2019 CNOV Office Visit (BMIREJ ) PALLAVI LUJAN Nora ([id number]) 1965 F Date Time Provider Department 02/14/19 [...] chronic medical conditions associated with obesity include [place] diabetes, hypertension taking Norvasc, lisinopril, metoprolol and [...] goal weight prior to liquid fast: Per plan manager Surgically Cleared with completion of the below: [...] Yuni Flores MD Referring Provider: YUNI FLORES) [[id number]] Allergies As of Date: 02/14/2019 (No Known Allergies) Date Reviewed: 02/14/2019 Reviewed by: Ernestine Spaulding - Fully Assessed Reason for Visit: New Patient [172] Primary Visit Diagnosis:Morbid obesity (HCC) [E66.01] Other Visit Diagnosis:Gastroesophageal reflux disease, esophagitis presence not specified [K21.9] Order(s):EGD [0691501] Order #: [id number] FUTURE Prescriptions as of 02/14/2019 Sig: ATORVASTATIN [...] Encounter Status:Closed by YUNI FLORES on 02/14/19 [facility] PROGRESSon 02-14-2019 PROGRESS HNO ID: [id number] Author: Yuni Flores Service: ? Author Type: Physician Type: Progress [...] chronic medical conditions associated with obesity include [place] diabetes, hypertension taking Norvasc, lisinopril, metoprolol and [...] goal weight prior to liquid fast: Per plan manager Surgically Cleared with completion of the below: [...] record and US mail, Yuni Flores MD [facility] PROGRESSon 12-19-2018 Protein mass conc HNO ID: [id number] Author: Ailyn Leal) Alin Ferrer Service: Radiology Author Type: Bulk Pallet Builder Type: Progress Notes Filed: 12/19/2018 2:41 PM [...] OCHOA RT December 19, 2018 2:40 PM [place] XR CHEST 2V FRONTAL/LATon XR CHEST 2V [...] silhouette. Other: . IMPRESSION: Mild bibasilar atelectasis. Channel Development Manager: PSCB Transcribe Date/Time: Dec 19 2018 2:47P Dictated by : RUTH ANN OWENS MD This examination was interpreted and the report reviewed and electronically signed by: RUTH ANN OWENS MD on Dec 19 2018 2:48PM EST [id number] Normal [facility] Vital Signs Date Time Vital Sign Value Performing Clinician Facility 11-26-2024 09:48-0500 Body height 165.1 cm Winston Crane MD Work Phone: [facility] 11-26-2024 09:48-0500 Body mass index (BMI) [Ratio] 34.9 kg/m2 Winston Crane MD Work Phone: [facility] 11-26-2024 09:48-0500 Body temperature 98.6 [degF] Winston Crane MD Work Phone: [facility] 11-26-2024 09:48-0500 Body weight 95.25 kg Winston Crane MD Work Phone: [facility] 11-26-2024 09:48-0500 Diastolic blood pressure 85 mm[Hg] Winston Crane MD Work Phone: [facility] 11-26-2024 09:48-0500 Heart rate 119 /min Winston Crane MD Work Phone: [facility] 11-26-2024 09:48-0500 Respiratory rate 18 /min Winston Crane MD Work Phone: [facility] 11-26-2024 09:48-0500 SaO2% (BldA) [Mass fraction] 94 % Winston Crane MD Work Phone: [facility] 11-26-2024 09:48-0500 Systolic blood pressure 150 mm[Hg] Winston Crane MD Work Phone: [facility] 02-14-2023 15:47-0400 Blood Pressure Location David MACKL [facility] [place] 02-14-2023 15:47-0400 Diastolic blood pressure 82 mm[Hg] David NILL [facility] [place] 02-14-2023 15:47-0400 Heart rate 82 /min David NILL [facility] [place] 02-14-2023 15:47-0400 Respiratory rate 16 /min David NILL [facility] [place] 02-14-2023 15:47-0400 Systolic blood pressure 132 mm[Hg] David NILL [facility] [place] 02-04-2023 13:50-0400 Body height 165.1 cm Kaitlin Lani Other [facility] Other 02-04-2023 13:50-0400 Body mass index (BMI) [Ratio] 35.44 kg/m2 Kaitlin Lani Other [facility] Other 02-04-2023 13:50-0400 Body temperature 97.1 [degF] Kaitlin Garibay Other [facility] Other 02-04-2023 13:50-0400 Body weight 96.62 kg Kaitlin Lani Other [facility] Other 02-04-2023 13:50-0400 Diastolic blood pressure 71 mm[Hg] Kaitlin Garibay Other [facility] Other 02-04-2023 13:50-0400 Respiratory rate 18 /min Kaitlin Garibay Other [facility] Other 02-04-2023 13:50-0400 SaO2% (BldA) [Mass fraction] 96 % Kaitlin Contrerasmond Other [facility] Other 02-04-2023 13:50-0400 Systolic blood pressure 110 mm[Hg] Kaitlin Lani Other [facility] Other 01-16-2023 16:45-0400 Body height 165.1 cm Yolie Cross Other [facility] Other 01-16-2023 16:45-0400 Body mass index (BMI) [Ratio] 36.27 kg/m2 Yolie Cross Other [facility] Other 01-16-2023 16:45-0400 Body temperature 97.3 [degF] Yolie Cross Other [facility] Other 01-16-2023 16:45-0400 Body weight 98.88 kg Yolie Cross Other [facility] Other 01-16-2023 16:45-0400 Respiratory rate 18 /min Yoile Cross Other [facility] Other 01-16-2023 16:45-0400 SaO2% (BldA) [Mass fraction] 97 % Yolie Cross Other [facility] Other 09-04-2022 13:50-0500 Body height 165.1 cm Kaitlin Lani Other [facility] Other 09-04-2022 13:50-0500 Body mass index (BMI) [Ratio] 35.94 kg/m2 Kaitlin Lani Other [facility] Other 09-04-2022 13:50-0500 Body temperature 97.1 [degF] Kaitlin Lani Other [facility] Other 09-04-2022 13:50-0500 Body weight 97.98 kg Kaitlin Lani Other [facility] Other 09-04-2022 13:50-0500 Diastolic blood pressure 75 mm[Hg] Kaitlin Lani Other [facility] Other 09-04-2022 13:50-0500 Respiratory rate 18 /min Kaitlin Garibay Other [facility] Other 09-04-2022 13:50-0500 SaO2% (BldA) [Mass fraction] 97 % Kaitlin Garibay Other [facility] Other 09-04-2022 13:50-0500 Systolic blood pressure 141 mm[Hg] Kaitlin Garibay Other [facility] Other 08-27-2022 10:35-0500 Body height 165.1 cm Yolie Cross Other [facility] Other 08-27-2022 10:35-0500 Body mass index (BMI) [Ratio] 36.07 kg/m2 Yolie Cross Other [facility] Other 08-27-2022 10:35-0500 Body temperature 97.6 [degF] Yolie Cross Other [facility] Other 11-06-2022 10:35-0500 Body weight 98.34 kg Yolie Cross Other [facility] Other 08-27-2022 10:35-0500 Diastolic blood pressure 81 mm[Hg] Yolie Cross Other [facility] Other 08-27-2022 10:35-0500 Respiratory rate 18 /min Yolie Cross Other [facility] Other 08-27-2022 10:35-0500 SaO2% (BldA) [Mass fraction] 98 % Yolie Cross Other [facility] Other 08-27-2022 10:35-0500 Systolic blood pressure 126 mm[Hg] Yolie Tay Other [facility] Other 08-18-2021 15:30-0400 Body height 165.1 cm Tai Olexa Other [facility] Other 08-18-2021 15:30-0400 Body mass index (BMI) [Ratio] 48.25 kg/m2 Tai Olexa Other [facility] Other 08-18-2021 15:30-0400 Body weight 131.54 kg Tai Olexa Other [facility] Other 07-10-2021 19:10-0400 Body height 165.1 cm Pcp Unknown [facility] [place] 07-10-2021 19:10-0400 Body temperature 97.52 [degF] Pcp Unknown [facility] 07-10-2021 19:10-0400 Body weight 94 kg Pcp Unknown [facility] [place] 07-10-2021 19:10-0400 Diastolic blood pressure 68 mm[Hg] Pcp Unknown [facility] 07-10-2021 19:10-0400 Heart rate 78 /min Pcp Unknown [facility] [place] 07-10-2021 19:10-0400 Respiratory rate 16 /min Pcp Unknown [facility] 07-10-2021 19:10-0400 SaO2% (BldA) [Mass fraction] 96 % Pcp Unknown [facility] 07-10-2021 19:10-0400 Systolic blood pressure 127 mm[Hg] Pcp Unknown [facility] Encounters Encounter Date Encounter Type Care Provider Facility Start: 12-23-2024 End: 12-23-2024 ambulatory [facility] Start: 12-15-2024 End: 12-15-2024 ambulatory Winston Crane MD Work Phone: [facility] Work Phone: Start: 12-15-2024 End: 12-15-2024 Departed Referred Winston Crane MD Work Phone: [facility] Start: 11-26-2024 End: 11-26-2024 ambulatory Winston Crane MD Work Phone: [facility] Work Phone: Start: 11-26-2024 End: 11-26-2024 Patient encounter procedure Winston Crane MD Work Phone: [facility] Work Phone: Start: 10-16-2024 End: 10-16-2024 ambulatory Winston Crane Facility:[facility] Start: 10-16-2024 End: 10-16-2024 Departed Referred Winston Crane MD Work Phone: [facility] Start: 01-16-2024 End: 01-16-2024 ambulatory [facility] Start: 04-25-2023 End: 04-26-2023 ambulatory David JIN Facility:[facility] Start: 04-25-2023 End: 04-25-2023 Patient encounter procedure David JIN [facility] [place] Start: 04-11-2023 End: 04-12-2023 ambulatory David JIN Facility:[id number] Start: 03-14-[address] WINSTON CRANE . Facili ty: Start: 02-14-2023 End: 02-15-2023 ambulatory David Murphy NILL Facility:[facility] Start: 02-14-2023 End: 02-14-2023 Patient encounter procedure David Murphy NILL [facility] [place] Start: 02-04-2023 End: 02-04-2023 ambulatory Kaitlin Garibay Other [facility] Other Start: 02-04-2023 Office outpatient vi sit 15 minutes Kaitlin Garibay [facility] Start: 01-25-2023 ambulatory David JIN Facility:[facility] Start: 01-19-2023 Encounter for genera l adult medical examination without abnormal findings DR WINSTON CRANE . [facility] Start: 01-16-2023 Office outpatient vi sit 15 minutes Yolie Cross [facility] Start: 01-16-2023 End: 01-17-[address] WINSTON CRANE . [facility] Other Start: 01-16-2023 End: 01-17-2023 Encounter for general adult medical examination without abnormal findings DR WINSTON CRANE . Facility: Start: 09-04-2022 End: 09-04-2022 ambulatory Kaitlin Garibay Other [facility] Other Start: 09-04-2022 Office outpatient vi sit 15 minutes Kaitlin Garibay [facility] Start: 08-27-2022 End: 08-27-2022 ambulatory Yolie Cross Other [facility] Other Start: 08-27-2022 Office outpatient vi sit 25 minutes Yolie Cross [facility] Start: 07-05-2022 End: 07-06-[address] PATRICE NO Facility:[facility] Start: 06-30-2022 End: 07-01-[address] WINSTON CRANE . Facility:[facility] Start: 11-01-2021 End: 11-01-2021 ambulatory Tai Olexa Other [facility] Other Start: 11-01-2021 Postop follow up vis it related to original px Tai Olexa [facility] Start: 10-17-2021 End: 10-17-2021 ambulatory Tai Olexa Other [facility] Other Start: 10-17-2021 Telephone encounter Tai Olexa [facility] Start: 09-21-2021 End: 09-21-2021 ambulatory Tai Olexa Other [facility] Other Start: 09-21-2021 Telephone encounter Tai Olexa [facility] Start: 08-18-2021 Encounter for other preprocedural examination Tai Olexa [facility] [place] Start: 08-18-2021 Office outpatient ne w 45 minutes Tai Olexa [facility] Start: 07-10-2021 End: 07-10-2021 Emergency department patient visit Jacqueline Robles [facility] Adult ED Gold 04 Start: 03-25-2019 Patient encounter status Asha Crane MD Work Phone: [facility] Start: 12-19-2018 Encounter for other preprocedural examination [facility] Start: 12-19-2018 Patient encounter procedure [facility] Procedures Date Procedure Procedure Detail Performing Clinician Start: 11-26-2024 Quick Strep (POC) Winston Crane MD Work Phone: Start: 10-16-2024 Urine culture Winston Crane MD Work Phone: Start: 04-11-2023 Colonoscopy David JIN Start: 04-11-2023 Esophagogastroduodenoscopy David JIN Start: 10-22-2020 Gastric sleeve David JIN Decompression of median nerve David JIN H/O: tubal ligation David JIN History of operative procedure on elbow David JIN Repair of meniscus David SCHROEDER Plan of Treatment Date Care Activity Detail Author Start: 12-15-2024 Urine culture [facility] Start: 12-15-2024 Bacteria identified in Urine by Culture Urine Culture [facility] Immunizations Immunization Date Immunization Notes Care Provider Fa chip 02-04-2023 tetanus toxoid, reduced diphtheria toxoid, and acellular pertussis vaccine, adsorbed Kaitlin Lani Other [facility] 07-10-2021 tetanus toxoid, reduced diphtheria toxoid, and acellular pertussis vaccine, adsorbed Pcp Unknown [facility] 05-21-2021 SARS-CoV-2 (COVID-19 ) mRNA-1273 vaccine David JIN [facility] [place] 04-19-2021 SARS-CoV-2 (COVID-19 ) mRNA-1273 vaccine David JIN [facility] [place] NEGATED: Highlighted row has not occurred!02-14-2023 influenza virus vaccine, unspecified formulation David JIN [facility] [place] Payers Date Payer Category Payer Self-pay 1965 Unknown [id number] .[id number] 1965 Unknown [id number] .16.84 [id number] 1965 Unknown [id number] .16.84 [id number] 1965 Unknown [id number] 2.16.84 [id number] 1965 Unknown [id number] 1965 Unknown [id number] 1965 Unknown [id number] 1965 Unknown [id number] 1960 Medicaid [id number] 2. [id number] 1960 Unknown [id number] 2.1 [id number] Unknown [employer] Unknown [id number] Unknown [id number] Social History Date Type Detail Facility [facility] Tobacco smoking consumption unknown [facility] Sex Assigned At [facility] Start: 02-14-2023 End: 11-26-2024 Tobacco smoking status Ex-smoker (finding) [facility] [place] Tobacco smoking status Never [facility] [place] Start: 11-26-2024 End: 12-17-2024 Sex Female (finding) [facility] Start: 1965 Sex Assigned At Female F [facility] Functional Status Date Assessment Result Facility 02-14-2023 Functional Status N/A [facility] [place] Clinical Notes 08-18-2021 to 12-23-2024 Note Date & Type Note Facility 12-23-2024 Note [facility] Note Chief Complaint: Patient here for 1 year follow up CAD, hypertension, and diastolic heart failure. Echo was not completed since last year because it was denied. She was seen in [facility] a few weeks ago for cold symptoms. C/o chest ache every morning, which lightens up throughout the day. Says sometimes her HR is elevated. HPI: Pallavi Lujan is a 59 y.o. female With a history of mild coronary artery disease, diastolic dysfunction and hypertension here in routine follow-up For the past month, she has been having an ache in the central part of her chest; this typically occurs when she wakes up from sleep. It improves as she is more active during the day. It is unrelated to exertion. She has no significant shortness of breath. She denies orthopnea or paroxysmal nocturnal dyspnea. She has no lower extremity edema. She stopped Coreg as her blood pressure had been well-controlled on lisinopril alone. She has a history of recurrent urinary tract infections and is currently being treated for 1. Cardiology ROS: Review of Systems Cardiovascular: Positive for chest pain ( ache ). All other systems reviewed and are negative. Past Medical History She has no past medical history on file. Surgical History She has no past surgical history on file. Social History She reports that she quit smoking about 8 years ago. Her smoking use included cigarettes. She started smoking about 23 years ago. She has a 15 pack-year smoking history. She has been exposed to tobacco smoke. She has never used smokeless tobacco. She reports current alcohol use of about 9.0 standard drinks of alcohol per week. She reports that she does not use drugs. Family History No family history on file. Allergies Latex Medications Current Outpatient Medications: aspirin 81 mg chewable tablet, CHEW 1 TABLET BY MOUTH EVERY DAY, Disp: , Rfl: atorvastatin (Lipitor) 80 mg tablet, Take 1 tablet (80 mg) by mouth at bedtime., Disp: 90 tablet, Rfl: 3 carvedilol (Coreg) [...] MINUTES PRIOR TO PROCEDURE, Disp: , Rfl: ferrous sulfate 325 (65 Fe) MG tablet, Take 1 tablet by mouth in the morning and at bedtime., Disp: , Rfl: furosemide (Lasix) 20 mg tablet, TAKE ONE TABLET BY MOUTH ONCE DAILY DIRECTED, Disp: 30 tablet, Rfl: 11 Linzess 72 mcg capsule, Take 72 mcg [...] Disp: , Rfl: Last Recorded Vitals BP 120/78 (BP Location: Left arm, Patient Position: Sitting) Pulse 92 Ht 1.676 m (5' 6 ) Wt 95.7 kg (211 lb) SpO2 93% BMI 34.06 kg/m??? Physical Examination: GENERAL: alert and oriented [...] 09/2022 Heart failure with preserved ejection fraction Ess (more content not included)... [facility] 11-26-2024 Evaluation note Diagnosis Onset Date Resolution Viral URI with cough acute Febr ua2024 9:13am Contact with or suspected exposure to severe acute respiratory syndrome noneactive November 9:13am Sore throat noneactive November 26, 2024 9:13am [facility] Work Phone: [phone] 564-349103-27-2024 [facility] Chief Complaint: Patient [...] beta-denzel and an angiotensin-c (more content not included)...[facility] 02-15-2023 NoteChief Complaint consultation for anemia HPI Staff 57 [...] change in bms or blood in stools; noabd complaints; patient reports long h/o intermittent anemia, [...] swallowing difficulties, no hearing loss, no ear infection(s),no nose bleeds. Cardiovascular: normal blood pressure, no [...] more than 30 d (more content not included)...[facility] Comment: Electronically Signed By: ANNABEL BERRY, David Joyce\Date and Time Signed: 02/15/23 16:26 [id number] Evaluation note* Encounter Date Diagnosis Assessment Notes Treatment Notes Treatment Clinical Notes Jan, Cellulitis of right hand (ICD-10 - L03.113) Cellulitis: adult home care material was printed Drink plenty fluids, get plenty of rest. Continue home medications as prescribed. Take the cephalexin as prescribed until gone. Take Tylenol or Motrin for aches pains or fevers. Follow-up with your family physician if no improvement in 2 to 3 days [employer] Other 03-28-2023 Evaluation note* Encounter Date Diagnosis Assessment Notes [...] treatment plan. Patient left in stable condition. [facility] Other 11-14-2022 Evaluation note* Encounter Date Diagnosis [...] no improvement in 2 to 3 days. [employer] Other 11-06-2022 Evaluation note* Encounter Date Diagnosis [...] and rest, Tylenol/Motrin as directed, rx of [place] and Flonase, cool mist humidifier, throat lozenges. [...] condition Aug, Sore throat (ICD-10 - J02.9) [facility] Other 01-11-2022 Evaluation note* Encounter Date Diagnosis [...] remova l of sutures (ICD-10 - Z48.02) [employer] Other 12-27-2021 Evaluation note* Encounter Date Diagnosis Assessment Notes Treatment Notes Treatment Clinical Notes Sep, Other specified postprocedural states (ICD-10 - Z98.890) [employer] Other 10-28-2021 Evaluation note* Encounter Date Diagnosis [...] outcome. Jul, Pre-op exam (ICD-10 - Z01.818) [employer] Other Evaluation + Plan note No data available for this section General Surgery Phyllis Evaluation noteNo InformationNort[employer] Other Evaluation note* Diagnosis Onset Date Resolution Status Admit Date Contact with or suspected exposure to severe acute respiratory syndrome noneactive November 9:13am Sore throat noneactive November 26, 2024 9:13am [facility] Work Phone: Hispjio general Narrative - Reported* Type Description Date Medical History Hypertension Medical History hypercholesterolemia Medical History urinary frequency Medical History acid reflux Medical History Arthritis Medical History pre diabetic Surgical History knee surgery 2010 Surgical History tubal ligation Surgical History ankle surgery Hospitalization History see above surgical [facility] Other [facility] general Narrative - Reported* Type Description Date Medical History Hypertension Medical History hypercholesterolemia Medical History urinary frequency Medical History acid reflux Medical History Arthritis Medical History pre diabetic Surgical History knee surgery 2010 Surgical History tubal ligation Surgical History ankle surgery Surgical History gastric bypass Hospitalization History see above surgical [facility] Other History general Narrative - Reported* Type Description Date Medical History Hypertension Medical History hypercholesterolemia Medical History urinary frequency Medical History acid reflux Medical History Arthritis Medical History pre diabetic Surgical History knee surgery 2011 Surgical History tubal ligation Surgical History ankle surgery Surgical History gastric bypass Surgical History right elbow Surgical History carpal tunnel Hospitalization History see above surgical histo ry [facility] [employer] Other Hospital Discharge instructions No data available for this section General Surgery Phyllis Progress note No data available for this section General Surgery Phyllis Summary Purpose Family History No Family History Records Found Relationship Condition Age at Onset Recorded Date/T rj Not Specified No pertinent family history Unknown brother Unknown father Unknown family member Unknown mother Unknown Advance Directives No Advanced Directives Records Found Advance Directive Response Recorded Date/ Time Advance Directives No March 07 9:08am Chief Complaint and Reason for Visit Chief Complaint Admit Date Unknown October 16, 2024 7:54am Sore throat, cough November 26, 2024 9 :13am Reason for Visit Admit Date Contact with or suspected ex posure to severe acute respiratory syndrome November 26, 2024 9:13am Sore throat November 26, 2024 9 :13am Chief Complaint Admit Date Unknown October 16, 2024 7:54am Sore throat, cough November 26, 2024 9 :13am Unknown December 15, 2024 7:00pm Reason for Visit Admit Date Viral URI with cough November 26, 2024 9:13am Contact with or suspected ex posure to severe acute respiratory syndrome November 26, 2024 9:13am Sore throat November 26, 2024 9 :13am Additional Source Comments INFORMATION SOURCE (unrecogn ized section and content) DATE CREATED AUTHOR 12/20/2018 [facility] DATE CREATED AUTHOR AUTHOR'S ORGANIZ ATION 02/04/2020 [facility] DATE CREATED AUTHOR AUTHOR'S ORGANIZ ATION 08/27/2021 [facility] [place] DATE CREATED AUTHOR AUTHOR'S ORGANIZ ATION 08/29/2021 [facility] DATE CREATED AUTHOR AUTHOR'S ORGANIZ ATION 03/07/2023 [facility] DATE CREATED AUTHOR AUTHOR'S ORGANIZ ATION 04/26/2023 [facility] DATE CREATED AUTHOR AUTHOR'S ORGANIZ ATION 12/22/2024 [facility] DATE CREATED AUTHOR AUTHOR'S ORGANIZ ATION 12/24/2024 [facility] <item> Privacy Markings (unrecogniz ed [...] Status: Active Member Role Status Dates Winston Crane MD Primary Care Provider Active Team Status: Inactive Member Role Status Dates Winston Crane MD Attending Provider Active Sta rt: October 16, 2024 End: October 16, 2024 Team Status: Inactive Member Role Status Dates Melvi Vega APRN Attending Provider Active S tart: November 26, 2024 End: November 26, 2024 Winston Crane MD Primary Care Provider Active Start: November 26, 2024 End: November 26, 2024 Team Status: Inactive Member Role Status Dates Winston Crane MD Primary Care Provide r, Attending Provider Active Start: December 15, 2024 End: December 15, 2024 Goals (unrecognized section and content) Goals [...] BE BASED ON THE PRIMARY CLINICAL RECORDS. [facility]. provides no warranty or guarantee of the accuracy or completeness of information in this document.
== END 2025-01-15 08:48 | disposition home or self-care (01) ==
LOC: CARD 08:47
PROVIDERS: PCP Family Medicine; Visit Provider Internal Medicine Interventional Cardiology
DX: I31.39 Other pericardial effusion (noninflammatory) (principal)
CPT/HCPCS: 93306

== ENCOUNTER 2025-05-26 12:22 | Emergency (ER) | payer OTHER, SELFPAY ==
--- OUTSIDE RECORDS SUMMARY | 2024-10-23 11:45 | XMS_ITS ---
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 FILLING. * Medical History: Objective: * Vitals: Assessment: Plan: * Treatment: * Images: * Electronic signature of Juan Holder DDS on 05/26/2025 at 12:29 PM EDT Sign off status: Pending * Provider: Fidencio Holder DDS Date: 10/23/2024 Generated for Tiffanie gutiérrez/Won/Grayson on: 0 05/26/2025 12:29 PM EDT
--- OUTSIDE RECORDS SUMMARY | 2024-10-30 10:45 | XMS_ITS ---
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 CROWN PREP. * Medical History: Objective: * Vitals: Assessment: Plan: * Treatment: * Images: * Electronic signature of Juan Holder DDS on 05/26/2025 at 12:28 PM EDT Sign off status: Pending * Provider: Fidencio Holder DDS Date: 0 10/30/2024 Generated for Tiffanie gutiérrez/Won/Grayson on: 0 05/26/2025 12:28 PM EDT
--- OUTSIDE RECORDS SUMMARY | 2024-12-04 11:00 | XMS_ITS ---
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 CROWN SEAT. * Medical History: Objective: * Vitals: Assessment: Plan: * Treatment: * Images: * Electronic signature of Juan Holder DDS on 05/26/2025 at 12:28 PM EDT Sign off status: Pending * Provider: Fidencio Holder DDS Date: 12/04/2024 Generated for Tiffanie gutiérrez/Won/Grayson on: 0 05/26/2025 12:28 PM EDT
--- OUTSIDE RECORDS SUMMARY | 2025-02-18 05:19 | XMS_ITS ---
Author Organization The [facility] in [place] Address [address] [place] [address] Care Team Providers Care Customer Insight Analyst Name Role Phone David Crane Primary Care Provider [phone] REASON FOR VISIT Semaglutide refill Encounters Encounter Location Date Provider Diagnosis [facility] [address] [place] [address] 02/18/2025 David Crane Plan Of Treatment No Information Progress Notes * Pallavi GRIGGS SDOB: [birth year] (59 yo F)Acc No.[id number]:02/18/2025 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1965 A ge:59 Y S ex:Female Address:[address] [place] [address] * true * Date: Generated for Tiffanie gutiérrez/Won/eTransmitting on: 0 05/26/2025 12:28 PM EDT
--- OUTSIDE RECORDS SUMMARY | 2025-04-13 06:46 | XMS_ITS ---
Author Organization [facility] in [place] Address [address] [place] [address] Care Team Providers Care Hydrometeorologist Name Role Phone David Crane Primary Care Provider REASON FOR VISIT Semaglutide refill Medications Medication SIG (Take, Route, Frequency, Duration) Notes Start Date End Date Status Semaglutide 2.268 mg/0.63 mL 2.268 mg/0.63 mL 0.63 mL Subcutaneous Once weekly for 30 days 04/13/2025 Active Encounters Encounter Location Date Provider Diagnosis [facility] [address] [place] [address] 04/13/2025 David Crane CTS (carpal tunnel syndrome) G56.00 Assessments Encounter Date Diagnosis (ICD Code) Assessment Notes Treatment Notes Treatment Clinical Notes Section Notes 04/13/2025 CTS (carpal tunnel syndrome) (ICD-10 - G56.00) Plan Of Treatment Medication Medication Name Sig Start Date Stop Date Notes Semaglutide 2.268 mg/0.63 mL 2.268 mg/0.63 mL 0.63 mL Subcutaneous Once weekly for 30 days 04/13/2025 Semaglutide(0.25 or 0.5MG/DOS) 2 MG/3ML as directed Subcutaneous weekly 11/12/2024 Progress Notes * Pallavi GRIGGS SDOB: 4 (60 yo F)Acc No.[id number]:04/13/2025 Patient: Justin THOMAS Pallavi Nora :1965 A ge:60 Y S ex:Female Address:[address] , [place] [address] * Refills Stop Semaglutide(0.25 or 0.5MG/DOS) Solution Pen-injector, 2 MG/3ML, Subcutaneous, as directed, weekly Start Semaglutide 2.268 mg/0.63 mL Soultion Auto-injector, 2.268 mg/0.63 mL, Subcutaneous, 2.52 Milliliter, 0.63 mL, Once weekly, 30 days, Refills=0 * true * Date: Generated for Tiffanie gutiérrez/Won/Josephitting on: 0 05/26/2025 12:28 PM EDT
--- OUTSIDE RECORDS SUMMARY | 2025-05-21 06:31 | XMS_ITS ---
Author Organization The [facility] in [place] Address [address] [place] [address] Care Team Providers Care Propellant Charge Zone Assembler Name Role Phone David Crane Primary Care Provider REASON FOR VISIT rf semaglutide Medications Medication SIG (Take, Route, Frequency, Duration) Notes Start Date End Date Status Semaglutide 2.268 mg/0.63 mL 2.268 mg/0.63 mL 0.63 mL Subcutaneous Once weekly for 30 days 04/13/2025 Active Encounters Encounter Location Date Provider Diagnosis [facility] [address] [place] [address] 05/21/2025 David Crane Dysuria R30.0 Assessments Encounter Date Diagnosis (ICD Code) Assessment Notes Treatment Notes Treatment Clinical Notes Section Notes 05/21/2025 Dysuria (ICD-10 - R30.0) Plan Of Treatment Medication Medication Name Sig Start Date Stop Date Notes Cefdinir 300 MG 2 tablets Orally Daily 12/15/2024 Pyridium 200 MG 1 tablet after meals Orally Three times a day 12/01/2024 levoFLOXacin 750 MG 1 tablet Orally Once a day 12/01/2024 Semaglutide 2.268 mg/0.63 mL 2.268 mg/0.63 mL 0.63 mL Subcutaneous Once weekly for 30 days 04/13/2025 Amoxicillin-Pot Clavulanate 875-125 MG 1 tablet Orally every 12 hrs 12/22/2024 Pyridium 200 MG 1 tablet after meals Orally Three times a day 12/22/2024 Progress Notes * Pallavi GRIGGS SDOB: [birth year] (60 yo F)Acc No.[id number]:05/21/2025 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1965 A ge:60 Y S ex:Female Address:[address] [place] [address], [place] [address] * Refills Stop levoFLOXacin Tablet, 750 MG, Orally, 1 tablet, Once a day Stop Pyridium Tablet, 200 MG, Orally, 1 tablet after meals, Three times a day Stop Cefdinir Capsule, 300 MG, Orally, 2 tablets, Daily Stop Amoxicillin-Pot Clavulanate Tablet, 875-125 MG, Orally, 1 tablet, every 12 hrs Stop Pyridium Tablet, 200 MG, Orally, 1 tablet after meals, Three times a day Refill Semaglutide 2.268 mg/0.63 mL Soultion Auto-injector, 2.268 mg/0.63 mL, Subcutaneous, 2.52 Milliliter, 0.63 mL, Once weekly, 30 days, Refills=0 * true * Date: Generated for Tiffanie gutiérrez/Won/Josephitting on: 0 05/26/2025 12:28 PM EDT
[2025-05-26] VITALS (22 sets, daily range): BP systolic 109–125; BP diastolic 72–82; PULSE 70–107; TEMP 37.2; O2SAT 95–98; BMI 33.3
--- OUTSIDE RECORDS SUMMARY | 2025-05-26 12:28 | XMS_ITS | Clinical Summary ---
Author Organization [facility] Address [address] [place] [address] Care Team Providers Care Planning Rn Name Role Phone Reginaldo Crane MD Primary Care Provider +- Octavio Celestin MD Unavailable [phone] Allergies No known active allergies Medications * This document contains information received from the source organization and may not represent a complete record from that organization. traMADol (ULTRAM) 50 mg tablet 0 01/28/2018 Active oxybutynin (DITROPAN) 5 mg tablet 02/05/2018 Active amLODIPine (NORVASC) 5 mg tablet 02/04/2018 Active lisinopril (ZESTRIL, PRINIVIL) 40 mg tablet 02/03/2018 Active celecoxib (CELEBREX) 200 mg capsule 02/03/2018 Active atorvastatin (LIPITOR) 80 mg tabletIndications :Abnormal weight gain,Preoperative testing,Snoring,O ther fatigue,Sleep-dis ordered breathing,Hyperso mnolence,Excessiv e daytime sleepiness,Hypert ension, unspecified type,SOB (shortness of breath),Morbid obesity with BMI of 45.0-49.9, adult (HCC) Take 80 mg by mouth once daily. Active metoprolol succinate ER (TOPROL XL) 25 mg 24 hr tabletIndications :Abnormal weight gain,Preoperative testing,Snoring,O ther fatigue,Sleep-dis ordered breathing,Hyperso mnolence,Excessiv e daytime sleepiness,Hypert ension, unspecified type,SOB (shortness of breath),Morbid obesity with BMI of 45.0-49.9, adult (HCC) Take 25 mg by mouth once daily. 3 12/03/2018 Active furosemide (LASIX) 20 mg tabletIndications :Abnormal weight gain,Preoperative testing,Snoring,O ther fatigue,Sleep-dis ordered breathing,Hyperso mnolence,Excessiv e daytime sleepiness,Hypert ension, unspecified type,SOB (shortness of breath),Morbid obesity with BMI of 45.0-49.9, adult (HCC) Take 20 mg by mouth once daily. Active aspirin, enteric coated (ASPIRIN LOW DOSE) 81 mg EC tabletIndications :Abnormal weight gain,Preoperative testing,Snoring,O ther fatigue,Sleep-dis ordered breathing,Hyperso mnolence,Excessiv e daytime sleepiness,Hypert ension, unspecified type,SOB (shortness of breath),Morbid obesity with BMI of 45.0-49.9, adult (HCC) Take 81 mg by mouth. Active Active Problems Problem Noted Date Diagnosed Date Anemia 02/07/2018 Arthritis 02/07/2018 Asthma 02/07/2018 Back pain 02/07/2018 Current smoker 02/07/2018 High blood pressure 02/07/2018 History of pneumonia 02/07/2018 Stress Overview (02/07/2018): son in need of liver transplant, lives with the patient Anxiety BMI 40.0-44.9, adult Family History Medical History Relation Comments Arthritis Mother Blood Disease Mother Heart disease Mother Hypertension Mother Relation Status Comments Mother Social History Tobacco Use Types Packs/Day Years Used Date Smoking Tobacco: Former Cigarettes 1 23 0 03/01/1995 - 03/01/2018 Smokeless Tobacco: Never Alcohol Use Standard Drinks/Week Comments Yes 12 (1 standard drink = 0.6 oz pu re alcohol) PHQ-2 Answer Date Recorded PHQ-2 score 4 02/07/2018 Area Deprivation Index Answer Date Ronnie rded National Score (1-100), lower number is lower ri sk Not on file 09/26/2020 State Score (1-10), lower number is lower risk N ot on file 09/26/2020 Data from: https://www.neighborhoodatlas.medicine.[facility].edu/. 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 Not on file Not on file No t on file Last Filed Vital Signs Vital Sign Reading Time Taken Comments Blood Pressure 128/76 02/14/2019 1:41 PM EDT Pulse 81 02/14/2019 1:41 PM EDT Temperature - - Respiratory Rate 20 02/07/2018 9:31 AM EDT Oxygen Saturation - - Inhaled Oxygen Concentration - - Weight 125.1 kg (275 lb 14.4 oz) 2018 10:01 AM EDT Height 165 cm (5' 4.96 ) 05/19/2019 10: 01 AM EDT Body Mass Index 45.97 05/19/2019 10:01 AM EDT Plan of Treatment Health Maintenance Due Date Last Done Comments Anxiety Screening 1982 Depression Screening 1982 HIV Screening 1982 Hepatitis C Screening 1982 Cervical Cancer Screening [address] Colonography 2009 Cologuard (FIT-DNA) 2009 Colonoscopy 2009 Colorectal Cancer Screening 2009 Diabetes Screening 2009 Fecal Occult Blood 2009 Lipid Screening 2009 Sigmoidoscopy 2009 Pneumococcal Vaccine: 50+ (1 of 1 - PCV) 2014 Shingrix Vaccine (1 of 2) 2014 Influenza Vaccine (#1) 2025 DTaP,Tdap,Td Vaccine (2 - Td or Tdap) 04/14/2029 RSV Vaccine (1 - 1-dose 75+ series) 2039 Insurance [employer] Care Teams Planning Rn Relationship Specialty Start Date End Date Reginaldo Crane MD PCP - General Family Medicine 02/11/18 Octavio Celestin MD Referring Pain Management 02/27/18
--- OUTSIDE RECORDS SUMMARY | 2025-05-26 12:28 | XMS_ITS | Encounter Summary ---
Author Organization [facility] Address [facility] [place] [address] Care Team Providers Care Records Section Supervisor Name Role Phone Reginaldo Crane MD Primary Care Provider +- Octavio Celestin MD Unavailable [phone] Source Comments In the event this information is protected by the Federal Confidentiality of Alcohol and Drug AbusePatient Records regulations: The Federal rules restrict any use of the information to criminally investigate or prosecute any alcohol or drug abuse patient.[facility] Encounter Details Date Type Department Care Team (Late st Contact Info) Description 04/25/2019 Patient Msg BMI [facility] [address] [place], [place] [id number] Jena Vick, RD [address] [id number] RE: Request an Appointment Social History Tobacco Use Types Packs/Day Years Used Date Smoking Tobacco: Former Cigarettes 1 23 0 03/01/1995 - 03/01/2018 Smokeless Tobacco: Never Alcohol Use Standard Drinks/Week Comments Yes 12 (1 standard drink = 0.6 oz pu re alcohol) PHQ-2 Answer Date Recorded PHQ-2 score 4 02/07/2018 Comments No Sex and Gender Information Value Date Recorded Sex Assigned at Not on file Legal Sex Female 12:06 PM EDT Gender Identity Not on file Sexual Orientation Not on file 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
--- OUTSIDE RECORDS SUMMARY | 2025-05-26 12:28 | XMS_ITS | Clinical Summary ---
Author Organization [facility] Address [address] [place] [address] Care Team Providers Care Roto Rooter Operator Name Role Phone Unavailable Primary Care Provider Unavailabl e Social History Tobacco Use Types Packs/Day Years Used Date Smoking Tobacco: Never Assessed Comments Unknown Sex and Gender Information Value Date Recorded Sex Assigned at Not on file Legal Sex Female 10:14 PM EDT Gender Identity Not on file Sexual Orientation Not on file Plan of Treatment Not on file
--- OUTSIDE RECORDS SUMMARY | 2025-05-26 12:28 | XMS_ITS | Clinical Summary ---
Author Organization [facility] Address [address] [place] [address] Care Team Providers Care Plant Floor Automation Manager Name Role Phone Reginaldo Crane MD Primary Care Provider [phone] Allergies Active Allergy Reactions Criticality Noted Date Comments Latex Swelling 01/19/2023 Swelling on lips only (when she blows up balloons). Medications aspirin 81 mg chewable tablet CHEW 1 TABLET BY MOUTH EVERY DAY Active celecoxib (CeleBREX) 200 mg capsule Take 1 tablet by mouth in the morning. Active ferrous sulfate 325 (65 Fe) MG tablet Take 1 tablet by mouth in the morning and at bedtime. Active oxybutynin (Ditropan) 5 mg tablet Take 1 tablet by mouth in the morning. Active pantoprazole (ProtoNix) 40 mg EC tablet Take 1 tablet by mouth in the morning and at bedtime. Active tiZANidine (Zanaflex) 4 mg tablet Take 1 tablet by mouth if needed. Active diazePAM (Valium) 5 mg tablet if needed. 3 Active Linzess 72 mcg capsule Take 72 mcg by mouth in the morning. 3 Active lisinopril 40 mg tablet Take 40 mg by mouth in the morning. 3 Active atorvastatin (Lipitor) 80 mg tabletIndications :Coronary artery disease due to lipid rich plaque Take 1 tablet (80 mg) by mouth at bedtime. 90 tablet 3 4 08/22/20 25 Active furosemide (Lasix) 20 mg tabletIndications :Benign hypertensive heart disease without congestive heart failure TAKE ONE TABLET BY MOUTH ONCE DAILY DIRECTED 90 tablet 1 5 Active Active Problems Problem Noted Date Diagnosed Date Iron deficiency anemia 12/23/2024 Cervical stenosis of spine 01/16/202401/15 Chronic venous insufficiency 01/16/2024 Diabetes 01/16/2024 01/16/2024 Eczema 01/16/2024 01/16/2024 GERD (gastroesophageal reflux disease) 01/16/2024 Morbid obesity 01/16/2024 01/16/2024 Vitamin D deficiency 01/16/2024 01/16/2024 Varicose veins of legs 01/16/2024 Anxiety 01/19/2023 Sleep apnea 01/19/2023 BMI 40.0-44.9, adult 01/19/2023 Coronary arteriosclerosis 12/20/2021 Assessment & Plan (01/19/2023 3:59 PM EDT): Coronary artery disease is Without any concerning symptoms Continue goal-directed medical therapy including aspirin, Lipitor, carvedilol, lisinopril Continue heart healthy diet, regular exercise Diastolic heart failure 12/20/2021 Assessment & Plan (01/19/2023 4:00 PM EDT): [facility] Continue GDMT- Lasix 20 mg daily- Diuretic therapy Monitor daily weights, I&O, fluid restriction 1.5-2L/day, renal function and electrolytes Closed bimalleolar fracture 06/02/2019 Chronic obstructive lung disease 10/08/2018 Hypertensive disorder 10/08/2018 Assessment & Plan (01/19/2023 4:02 PM EDT): Hypertension is currently well controlled- 124/76 Continue all meds- lisinopril, lasix, coreg prn Anemia 02/07/2018 Arthritis 02/07/2018 Asthma 02/07/2018 Back pain 02/07/2018 Current smoker 02/07/2018 Overview (01/19/2023): Added secondary to documentation in Social History. History of pneumonia 02/07/2018 Immunizations Immunization Administration Dates Next Due Moderna SARS-CoV-2 Vaccination 05/21/2021,2020 Tdap 07/10/2021,04/14/2019 Social History Tobacco Use Types Packs/Day Years Used Date Smoking Tobacco: Former Cigarettes 1 15 2 002 - 2017 Passive Smoke Exposure: Past Smokeless Tobacco: Never Tobacco Cessation:Counseling Given: Not Answered Alcohol Use Standard Drinks/Week Comments Yes 9 (1 standard drink = 0.6 oz pur e alcohol) [place] Safety & Environment Answer Date Rec orded Fear of Current or Ex-Partner Not on file Emotionally Abused Not on file 12/13/2023 Physically Abused Not on file 12/13/2023 Sexually Abused Not on file 12/13/2023 Physically or Sexually Abused Not on file Comments Unknown Sex and Gender Information Value Date Recorded Sex Assigned at Not on file Legal Sex Female 12:10 AM EDT Gender Identity Not on file Sexual Orientation Not on file Last Filed Vital Signs Vital Sign Reading Time Taken Comments Blood Pressure 120/78 12/23/2024 9:27 AM EST Pulse 92 12/23/2024 9:27 AM EST Temperature - - Respiratory Rate - - Oxygen Saturation 93% 12/23/2024 9:27 AM EST Inhaled Oxygen Concentration - - Weight 95.7 kg (211 lb) 12/23/2024 9:27 AM EST Height 167.6 cm (5' 6 ) 12/23/2024 9:27 AM EST Body Mass Index 34.06 12/23/2024 9:27 AM EST Plan of Treatment Upcoming Encounters Date Type Department Care Team (Late st Contact Info) Description 06/15/2025 3:20 PM EDT Office Visit [facility] [address] [place] [address] Aly Donato, OFFICE MACHINE EMBOSSOGRAPH OPERATOR [address] [place] [address] Health Maintenance Due Date Last Done Comments CT Colonography 1964 Diabetes: Hemoglobin A1C 1964 FIT-DNA 1964 FIT 1964 FOBT 1964 Sigmoidoscopy 1964 Diabetes: Retinopathy Screening 1974 Depression Screening 1976 Diabetes: Urine Protein Screening 1983 Pneumococcal Vaccine: Pediatrics (0 to 5 Years) and At-Risk Patients (6 to 64 Years) (1 of 2 - PCV) 1983 Pap Smear 1985 Cervical Cancer Screening 1994 HPV/Cotest 1994 Mammogram 2004 Zoster Vaccines (1 of 2) 2014 COVID-19 Vaccine ( season) 2024 05/21/2021, 05/21/2021, 04/19/2021, Additional history exists Influenza Vaccine (#1) 2025 Adult Tetanus 02/04/2033 02/04/2023, 06/22, 04/14/2019 Colonoscopy 04/11/2033 04/11/2023 Colorectal Cancer Screening 04/11/2033 HIB Vaccines Aged Out No longer eligi ble based on patient's age to complete this topic HPV Vaccines Aged Out No longer eligi ble based on patient's age to complete this topic IPV Vaccines Aged Out No longer eligi ble based on patient's age to complete this topic Meningococcal B Vaccine Aged Out No l onger eligible based on patient's age to complete this topic Meningococcal Vaccine Aged Out No ciro brandon eligible based on patient's age to complete this topic Rotavirus Vaccines Aged Out No longer eligible based on patient's age to complete this topic Insurance [employer] [place] [employer]ICA[employer] Care Teams Plant Floor Automation Manager Relationship Specialty Start Date End Date Reginaldo Crane MD [address] [facility] [address] [address] PCP - General 01/17/23
--- OUTSIDE RECORDS SUMMARY | 2025-05-26 12:28 | XMS_ITS | Patient Health Record ---
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 Name Role Phone RoyceDavid Primary Care Provider [phone] Allergies No Known Allergies Results Component Value Reference Range Notes UA (Urinalysis, Dipstix only - w/o micro) Reviewed date:07/03/2024 03:05:27 PM Interpretation: Performing Lab: Notes/Report: GLUCOSE - 0 - 133 MG/DL ALBUMIN - NEG - NEG MG/DL BILIRUBIN - NEG - NEG MG/DL SPECIFIC GRAVITY 1.015 1.001 - 1.035 KETONES - NEG - NEG MG/DL BLOOD, UR - PH, UR 5.0 5 - 9 UROBILNOGEN 0.2 0.2 - 1 MG/DL NITRITE - NEG - NEG ESTERASE (LUCIUS) ++ NEG - NEG MG/DL Box Test Reviewed date:10/18/2024 08:39:59 PM Interpretation: Performing Lab: Notes/Report: URINE CULTURE [facility] , BOX Test Sent Out URINE BOX Test Reference Lab [facility] BOX Test Date Sent 10/16/24 BOX Test Result SEE SCANNED REPORT Performing Lab: see note ML - [facility] LB CA echo doppler complete Reviewed date:01/18/2025 04:04:04 PM Interpretation: Performing Lab: Notes/Report: Source Facility: [facility]-[address] [place] [address] [place] [address] Cardiology Report Signed Patient: KAMILA GRIGGS MR#: [id number] : 1965 Acct:[id number] Age/Sex: 59 / F ADM Date: 01/15/25 Loc: CARD Attending Dr: Patrice Ochoa M.D. Ordering Physician: Patrice Ochoa M.D. Date of Service: 01/15/25 Procedure(s): CA echo doppler complete Accession Number(s): [id number] cc: Patrice Ochoa M.D.; Winston Sotelo M.D. Patient Name: KAMILA GRIGGS MR#: [id number] : 1965 Exam Date: 01/15/2025 Ordering Doctor: DR PATRICE OCHOA M.D. ECHOCARDIOGRAM REPORT PROCEDURE: CA ECHO DOPPLER COMPLETE INDICATIONS: Pericardial effusion, hypertension, former smoker COMPARISON: None. DESCRIPTION: COMPLETE ECHOCARDIOGRAM Real-time transthoracic echocardiography with 2D, M-mode, spectral and color flow Doppler performed. QUALITY: Technical quality was good. LEFT VENTRICLE: Normal chamber size. Thickened septal wall. Normal systolic function LV EF: Normal left ventricular ejection fraction, (>55%). DIASTOLIC: Diastolic function is indeterminate. ATRIAL SEPTUM: Visually appears intact. LEFT ATRIUM: Normal chamber size. RIGHT ATRIUM: Normal chamber size. RIGHT VENTRICLE: Normal chamber size. Normal right ventricular systolic function. TRICUSPID VALVE: Normal mobility and thickness. No stenosis with no regurgitation. Unable to assess right-sided pressures due to lack of measurable tricuspid regurgitation. MITRAL VALVE: Normal mobility and thickness. No evidence of mitral valve stenosis. There is no mitral annular calcification. No mitral regurgitation. AORTIC VALVE: Normal trileaflet appearance. Thickened aortic valve. Normal leaflet mobility. No evidence of aortic valve stenosis. No aortic regurgitation. AORTIC ROOT: Normal diameter and appearance, measuring 3.3 cm. Ascending aorta is normal in size, measuring 2.6 cm. PULMONIC VALVE: Normal thickness and mobility. No stenosis. Trivial regurgitation. PERICARDIUM: Trace anterior pericardial effusion. IVC: Collapses with inspirations. PLEURA: CONCLUSION: 1. Normal ventricular size and systolic function. Estimated LVEF is 55 to 60%. 2. No significant valvular dysfunction. 3. Unable to assess right-sided pressures due to lack of measurable tricuspid regurgitation. 4. Trace anterior pericardial effusion. Adult Echocardiography Procedure Report Left Ventricle LVEDD (3.7 - 5.6 cm): 4.12 cm LVESD (2.2 - 4.0 cm): 3.03 cm LVIVS thickness (0.6 - 1.2 cm): 1.20 cm LVPW thickness (0.5 - 1.0 cm): 1.05 cm e': 0.07 m/s E - e': 8.54 LVOT Max Gradient: 4.49 mm[Hg], 4.96 mm[Hg] Peak Velocity (LVOT): 1.06 m/s, 1.11 m/s LVOT Diameter 2.38 cm Left Atrium LA Volume Index (2D A2C): 31.94 ml/m2 Left Atrium Systolic Dimension: 3.16 cm Mitral Valve MV E to A Ratio: 0.81 Mitral Valve A-Wave Peak Velocity: 0.76 m/s Mitral Valve E-Wave Peak Velocity: 0.62 m/s Right Ventricle Aorta AO Root Diam: 3.26 cm Ascending Ao Diam: 2.59 cm Aortic Valve AoV Area (Peak Jonathan): 3.10 cm2, 2.95 cm2 AoV Area (VTI): 3.42 cm2, 3.36 cm2 Peak Velocity(Antegrade Flow): 1.59 m/s Peak Gradient(Antegrade Flow): 10.13 mm[Hg] Mean Velocity(Antegrade Flow): 0.86 m/s Mean Gradient(Antegrade Flow): 3.70 mm[Hg] Velocity Time Integral: 29.46 cm Tricuspid Valve Pulmonic Valve Mean Gradient: 1.84 mm[Hg] Mean Velocity: 0.61 m/s Peak Velocity: 1.06 m/s, 0.99 m/s Peak Gradient: 3.94 mm[Hg], 4.48 mm[Hg] Right Atrium Right Atrium Systolic Pressure: 42.77 ml, 42.77 ml Dictated by: Vera Jefferson M.D. on 01/16/2025 at 17:07 Approved by: Vera Jefferson M.D. on 01/16/2025 at 17:10 Dictated By: VERA JEFFERSON Signed By: 01/16/251711 DD/ 09 TD/TT: Chief Strategy Officer: [place] [address] Cardiology Report Signed Patient: JORGE GRIGGS MR#: [id number] : 1965 Acct:[id number] Age/Sex: 59 / F ADM Date: 01/15/25 Loc: CARD Attending Dr: Patrice Ochoa M.D. Ordering Physician: Patrice Ochoa M.D. Date of Service: 01/15/25 Procedure(s): CA ech o doppler complete Accession Number(s): [id number] cc: Patrice Ochoa; Winston Sotelo M.D. Patient Name: KAMILA GRIGGS MR#: [id number] : 1965 Exam Date: 01/15/2025 Ordering Doctor: DR PATRICE OCHOA M.D. ECHOCARDIOGRAM REPORT PROCEDURE: CA ECHO D OPPLER COMPLETE INDICATIONS: Pericar dial effusion, hypertension, former smoker COMPARISON: None. DESCRIPTION: COMPLET E ECHOCARDIOGRAM Real-time transthoracic echocardiography wit h 2D, M-mode, spectral and color flow Doppler performed. QUALITY: Technical q uality was good. LEFT VENTRICLE: Norm al chamber size. Thickened septal wall. Normal systolic function LV EF: Normal left ventricular ejection fraction, (>55%). DIASTOLIC: Diastolic function is indeterminate. ATRIAL SEPTUM: Visua lly appears intact. LEFT ATRIUM: Normal chamber size. RIGHT ATRIUM: Normal chamber size. RIGHT VENTRICLE: Nor mal chamber size. Normal right ventricular systolic function. TRICUSPID VALVE: No rmal mobility and thickness. No stenosis with no regurgitation. Unabl e to assess right-sided pressures due to lack of measurable tricuspid regurgitation. MITRAL VALVE: Normal mobility and thickness. No evidence of mitral valve stenosis. There is n o mitral annular calcification. No mitral regurgitation. AORTIC VALVE: Normal trileaflet appearance. Thickened aortic valve. Normal leaflet mobil ity. No evidence of aortic valve stenosis. No aortic regurgitation. AORTIC ROOT: Normal diameter and appearance, measuring 3.3 cm. Ascending aorta is normal in s ize, measuring 2.6 cm. PULMONIC VALVE: Norm al thickness and mobility. No stenosis. Trivial regurgitation. PERICARDIUM: Trace anterior pericardial effusion. IVC: Collapses with inspirations. PLEURA: CONCLUSION: 1. Normal ventricula r size and systolic function. Estimated LVEF is 55 to 60%. 2. No significant va lvular dysfunction. 3. Unable to assess right-sided pressures due to lack of measurable tricuspid regurgitation. 4. Trace anterior pericardial effusion. Adult Echocardiograp hy Procedure Report Left Ventricle LVEDD (3.7 - 5.6 cm) : 4.12 cm LVESD (2.2 - 4.0 cm) : 3.03 cm LVIVS thickness (0.6 - 1.2 cm): 1.20 cm LVPW thickness (0.5 - 1.0 cm): 1.05 cm e': 0.07 m/s E - e': 8.54 LVOT Max Gradient: 4 .49 mm[Hg], 4.96 mm[Hg] Peak Velocity (LVOT) : 1.06 m/s, 1.11 m/s LVOT Diameter 2.38 cm Left Atrium LA Volume Index (2D A2C): 31.94 ml/m2 Left Atrium Systolic Dimension: 3.16 cm Mitral Valve MV E to A Ratio: 0.81 Mitral Valve A-Wave Peak Velocity: 0.76 m/s Mitral Valve E-Wave Peak Velocity: 0.62 m/s Right Ventricle Aorta AO Root Diam: 3.26 cm Ascending Ao Diam: 2.59 cm Aortic Valve AoV Area (Peak Jonathan): 3.10 cm2, 2.95 cm2 AoV Area (VTI): 3.42 cm2, 3.36 cm2 Peak Velocity(Antegr sameer Flow): 1.59 m/s Peak Gradient(Antegr sameer Flow): 10.13 mm[Hg] Mean Velocity(Antegr sameer Flow): 0.86 m/s Mean Gradient(Antegr sameer Flow): 3.70 mm[Hg] Velocity Time Integr al: 29.46 cm Tricuspid Valve Pulmonic Valve Mean Gradient: 1.84 mm[Hg] Mean Velocity: 0.61 m/s Peak Velocity: 1.06 m/s, 0.99 m/s Peak Gradient: 3.94 mm[Hg], 4.48 mm[Hg] Right Atrium Right Atrium Systoli c Pressure: 42.77 ml, 42.77 ml Dictated by: Vera Jefferson M.D. on 01/16/2025 at 17:07 Approved by: Vera Jefferson M.D. on 01/16/2025 at 17:10 Dictated By: VERA JEFFERSON Signed By: 01/16/251711 DD/ 09 TD/TT: Chief Strategy Officer: UA RANDOM W or MICROSCOPIC Reviewed date:12/15/2024 08:20:44 PM Interpretation: Performing Lab: Notes/Report: [facility] , Color Urine LT. YELLOW YELLOW Clarity Urine CLOUDY CLEAR Specific [place] Urine 1.025 1.005-1.025 pH Urine 5.5 5.0-9.0 Protein Urine TRACE NEG/TRACE mg/dL Glucose Urine UA NEGATIVE NEGATIVE mg/dL Bilirubin Urine NEGATIVE NEGATIVE Ketones Urine NEGATIVE NEGATIVE mg/dL Blood Urine TRACE-I NEGATIVE Nitrite Urine POSITIVE NEGATIVE Urobilinogen Urine 0.2 0.2-1.0 EU/dL Leukocyte Esterase Urine MODERATE NEGATIVE WBC Urine 75-100 NONE SEEN #/HPF RBC Urine 2-5 0-2 #/HPF Bacteria Urine SMALL NONE SEEN #/HPF Mucus Urine NONE SEEN NONE SEEN Squamous Epithelial Cell Urine RARE NONE/RARE #/LPF Crystals Seen? None Seen None Seen #/HPF Cast Seen? NONE SEEN NONE SEEN #/LPF Urine Culture Indicated ALREADY ORDERED Performing Lab: see note ML - [facility] LB XR chest 1V Reviewed date:11/30/2024 11:17:27 AM Interpretation: Performing Lab: Notes/Report: Source Facility: [place] [address] XRay Report Signed Patient: KAMILA GRIGGS MR#: [id number] : 1965 Acct:[id number] Age/Sex: 59 / F ADM Date: 11/29/24 Loc: ER Attending Dr: Ordering Physician: Courtney Pastor Date of Service: 11/29/24 Procedure(s): XR chest 1V Accession Number(s): [id number] cc: Winston Sotelo M.D.; Courtney Pastor [place] [address] Patient Name: KAMILA GRIGGS MRN: [id number] date: 1965 Sex: F Assigned Patient Location: ER Current Patient Location: Accession/Order Number: [id number] Exam Date: 11/29/2024 14:32 Report Date: 11/29/2024 16:17 At the request of: COURTNEY PASTOR Procedure: XR chest 1V EXAM: XR chest 1V , 11/29/2024 HISTORY: cough COMPARISON: Previous x-ray from 12/04/2021. TECHNIQUE: X-ray of the chest, portable upright AP view. FINDINGS: Borderline enlarged cardiac silhouette. Mild atherosclerotic calcification of the aortic arch. The lungs and costophrenic angles are clear. No focal consolidation or pulmonary edema. No acute osseous findings. XR/XR chest 1V IMPRESSION: Borderline enlarged cardiac silhouette. No focal consolidation or pulmonary edema. Electronically authenticated by: TIMMY TRINIDAD Date: 11/29/2024 16:17 Dictated By: Timmy Trinidad M.D. Signed By: 11/29/24 162 DD/ 16 TD/TT: Chief Strategy Officer: [place] [address] XRay Report Signed Patient: JORGE GRIGGS MR#: [id number] : 1965 Acct:[id number] Age/Sex: 59 / F ADM Date: 11/29/24 Loc: ER Attending Dr: Ordering Physician: Courtney Pastor Date of Service: 11/29/24 Procedure(s): XR chest 1V Accession Number(s): [id number] cc: Winston Sotelo M.D. ; Courtney Pastor [place] [address] Patient Name: KAMILA GRIGGS MRN: [id number] date: 1965 Sex: F Assigned Patient Loc ation: ER Current Patient Location: Accession/Order Numb er: [id number] Exam Date: 11/29/2024 14:32 Report Date: 11/29/2024 16:17 At the request of: COURTNEY PASTOR Procedure: XR chest 1V EXAM: XR chest 1V , 11/29/2024 HISTORY: cough COMPARISON: Previous x-ray from 12/04/2021. TECHNIQUE: X-ray of the chest, portable upright AP view. FINDINGS: Borderline enlarged cardiac silhouette. Mild atherosclerotic calcification of the aortic arch. The lungs and costophrenic angles are clear. No focal consolidation or pul monary edema. No acute osseous findings. X R/XR chest 1V IMPRESSION: Borderline enlarged cardiac silhouette. No focal consolidati on or pulmonary edema. Electronically authenticated by: TIMMY TRINIDAD Date: 11/29/2024 16:17 Dictated By: Da Trinidad M.D. Signed By: 11/29/24 1620 DD/ 1617 TD/TT: Chief Strategy Officer: ECG 12 lead Reviewed date:11/30/2024 11:17:27 AM Interpretation: Performing Lab: Notes/Report: Source Facility: [place] [address] [place] [address] Electrocardiograph Report Signed Patient: KAMILA GRIGGS MR#: [id number] : 1965 Acct:[id number] Age/Sex: 59 / F ADM Date: 11/29/24 Loc: ER Attending Dr: Ordering Physician: Courtney Pastor Date of Service: 11/29/24 Procedure(s): ECG 12 lead Accession Number(s): [id number] cc: [facility] Test Date: 2024-11-29 Pat Name: KAMILA GRIGGS Department: Room: - Gender: Female Machine Boss: : 1965 Requested By: WINSTON SOTELO Order Number: [id number] Reading MD: WINSTON SOTELO Measurements Intervals [place] Rate: 72 P: 67 [place]: 168 QRS: 50 QRSD: 78 T: 45 QT: 376 QTc: 400 Interpretive Statements 1100 Sinus rhythm 9110 normal ECG Compared to ECG 12/06/2021 17:47:28 No significant changes Electronically Signed On 11-30-2024 11:07:00 EST by WINSTON SOTELO Dictated By: Winston Sotelo M.D. Signed By: 11/30/24 1107 DD/ 1412 TD/TT: Chief Strategy Officer: [place] [address] Electrocardiograph Report Signed Patient: JORGE GRIGGS MR#: [id number] : 1965 Acct:[id number] Age/Sex: 59 / F ADM Date: 11/29/24 Loc: ER Attending Dr: Ordering Physician: Courtney Pastor Date of Service: 11/29/24 Procedure(s): ECG 12 lead Accession Number(s): [id number] cc: [facility] Test Date: 2024-11-29 Pat Name: KAMILA WOLFE SE Department: 57 Room: - Gender: Female Machine Boss: : 1965 Requ ested By: WINSTON SOTELO Order Number: [id number] Reading MD: WINSTON SOTELO Measurements Intervals [place] Rate: 72 P: 67 [place]: 168 QRS: 50 QRSD: 78 T: 45 QT: 376 QTc: 400 Interpretive Statements 1100 Sinus rhythm 9110 normal ECG Compared to ECG 11/22 17:47:28 No significant changes Electronically Bella d On 11-30-2024 11:07:00 EST by WINSTON SOTELO Dictated By: Brandon Sotelo M.D. Signed By: 11/30/24 1107 DD/ 1412 TD/TT: Chief Strategy Officer: Troponin I High Sensitivity Reviewed date:11/30/2024 11:17:27 AM Interpretation: Performing Lab: Notes/Report: [facility] , Troponin I High Sensitivity 8.5 4.0-51.3 pg/mL DIAGNOSIS. PERCENTILE OF cTnI DISTRIBUTION IN A REFERENCE POPULATION, UNIVERSAL DEFINITION OF MYOCARDIAL INFARCTION. THE UPPER HAS BEEN CONFIRMED THE DECISION THRESHOLD FOR [place] WITH OTHER DIAGNOSTIC AND CLINICAL INFORMATION. REFERENCE LIMIT (URL) OF TROPONIN, DEFINED THE 99TH NOTE: HIGH-SENSITIVITY TROPONIN ASSAY IS NOT INTENDED TO BE USED IN ISOLATION BUT SHOULD BE INTERPRETED IN CONJUNCTION CUT-OFF POINTS HAVE BEEN ESTABLISHED BASED ON THE FOURTH 99TH PERCENTILE = 51.4 PG/ML Performing Lab: see note ML - [facility] LB PROF 14(COMP METB) Reviewed date:11/30/2024 11:17:27 AM Interpretation: Performing Lab: Notes/Report: [facility] , Sodium 139 136-145 mmol/L Potassium 4.8 3.5-5.1 mmol/L Chloride 104 98-107 mmol/L Carbon Dioxide 26.7 21.0-32.0 mmol/L Anion Gap 13.1 Glucose 93 74-106 mg/dL Blood Urea Nitrogen 28.0 7.0-18.0 mg/dL Creatinine 1.05 0.55-1.02 mg/dL Estimated GFR ( Stacy >60 >=60 mL/min/1.73m 2 Estimated GFR (Non- Karime 53 >=60 mL/min/1.73m 2 BUN Creatinine Ratio 26.7 Calcium 8.5 8.5-10.1 mg/dL Bilirubin Total 0.3 0.2-1.0 mg/dL Aspartate Amino Transferase 66 15-37 U/L Alanine Aminotransferase 65 14-59 U/L Alkaline Phosphatase 53 46-116 U/L Total Protein 7.0 6.4-8.2 g/dL Albumin Level 3.3 3.4-5.0 g/dL Globulin 3.7 Albumin Globulin Ratio 0.9 Performing Lab: see note ML - [facility] LB CBC AUTO DIFF Reviewed date:11/30/2024 11:17:27 AM Interpretation: Performing Lab: Notes/Report: [facility] , White Blood Count 3.3 4.0-11.0 10 3/uL Red Blood Count 3.39 4.20-5.40 10 6/uL Hemoglobin 11.0 12.0-16.0 g/dL Hematocrit 33.6 36.0-48.0 % Mean Corpuscular Volume 99.1 81.0-99.0 fL Mean Corpuscular Hemoglobin 32.4 26.7-34.0 pg Mean Corpuscular HGB Conc 32.7 29.9-35.2 g/dL Red Cell Distribution Width 13.1 11.0-15.0 % Platelet Count 151 150-450 10 3/uL Mean Platelet Volume 9.4 9.5-13.5 fL Neutrophils Percent Auto 47.3 43.0-75.0 % Lymphocytes Percent Auto 41.0 20.5-60.0 % Monocytes Percent Auto 10.5 1.7-12.0 % Eosinophils Percent Auto 0.6 0.9-7.0 % Basophils Percent Auto 0.3 0.2-2.0 % Immature Granulocytes Pct Auto 0.3 0.0-0.5 % Neutrophils Absolute Auto 1.6 1.4-6.5 10 3/uL Lymphocytes Absolute Auto 1.4 1.2-3.8 10 3/uL Monocytes Absolute Auto 0.4 0.3-0.8 10 3/uL Eosinophils Absolute Auto 0.0 0.0-0.7 10 3/uL Basophils Absolute Auto 0.0 0.0-0.1 10 3/uL Immature Granulocytes Abs Auto 0.01 0.00-0.03 10 3/uL Performing Lab: see note ML - [facility] UA RANDOM W or MICROSCOPIC Reviewed date:10/16/2024 06:01:56 PM Interpretation: Performing Lab: Notes/Report: [facility] , Color Urine LT. YELLOW YELLOW Clarity Urine CLEAR CLEAR Specific [place] Urine 1.020 1.005-1.025 pH Urine 6.0 5.0-9.0 Protein Urine NEGATIVE NEG/TRACE mg/dL Glucose Urine UA NEGATIVE NEGATIVE mg/dL Bilirubin Urine NEGATIVE NEGATIVE Ketones Urine NEGATIVE NEGATIVE mg/dL Blood Urine NEGATIVE NEGATIVE Nitrite Urine NEGATIVE NEGATIVE Urobilinogen Urine 0.2 0.2-1.0 EU/dL Leukocyte Esterase Urine NEGATIVE NEGATIVE WBC Urine NONE SEEN NONE SEEN #/HPF RBC Urine NONE SEEN 0-2 #/HPF Bacteria Urine TRACE NONE SEEN #/HPF Mucus Urine TRACE NONE SEEN Squamous Epithelial Cell Urine RARE NONE/RARE #/LPF Crystals Seen? None Seen None Seen #/HPF Cast Seen? SEEN NONE SEEN #/LPF Hyaline Casts Urine RARE Urine Culture Indicated ALREADY ORDERED Performing Lab: see note ML - [facility] Urine Culture - [facility] Reviewed date:12/18/2024 07:50:22 PM Interpretation: Performing Lab: Notes/Report: [facility] Urine Culture - [facility] See Below For Report SEE See Scanned Report^See Scanned Report Urine Culture - [facility] Performing Lab: see note ML - [facility] Reason For Referral Diagnosis 1 CTS (carpal tunnel s yndrome) (G56.00) Referral Organization [facility] Referring Provider First Name David Referring Provider Last Name Royce Referring Provider Speciality Family [facility] icine Referred Provider [facility], [facility] Referred Provider Specialty Occupational Therapy Referral Priority Routine Medications Medication SIG (Take, Route, Frequency, Duration) Notes Start Date End Date Status Celecoxib 200 MG TAKE 1 CAPSULE BY MO UTH EVERY DAY for 30 Active Ferrous Sulfate 325 (65 Fe) MG TAKE ONE TABLET BY MOUTH TWICE A DAY for 28 Active Lisinopril 20 MG TAKE 1 TABLET BY HENNA TH EVERY DAY for 90 days Active CVS Stool Softener 100 MG TAKE 1 CAPSULE BY MOUTH 1 - 2 TIMES A DAY for 90 days Active oxyBUTYnin Chloride 5 mg TAKE ONE TABLET BY MOUTH ONCE DAILY for 28 Active Acetaminophen Extra Strength 500 mg TAKE TWO TABLETS BY MOUTH THREE TIMES A DAY for 28 Active Ondansetron 4 MG 1 tablet on the tong ue and allow to dissolve Orally Q 6 hours PRN 12/17/2023 Active Colace 100 MG 2 tabs Orally Once a day for 30 days Active Semaglutide 2.268 mg/0.63 mL 2.268 mg/0.63 mL 0.63 mL Subcutaneous Once weekly for 30 days 04/13/2025 Active Carvedilol 12.5 MG TAKE 1 TABLET BY HENNA TH TWICE A DAY for 90 Active Lisinopril 40 mg TAKE ONE TABLET BY M OUTH ONCE DAILY for 28 Active Pantoprazole Sodium 40 mg TAKE ONE TABLE T BY MOUTH TWICE A DAY for 28 Active Aspirin Low Dose 81 mg TAKE ONE TABLET B Y MOUTH ONCE DAILY for 28 Active Immunizations Vaccine Route Administration Date Status Comme nts SARS-COV-2 (COVID 19 Moderna - Booster 0.25mL) Unknown 04/19/2021 Administered SARS-COV-2 (COVID 19 Moderna - Booster 0.25mL) Unknown 05/21/2021 Administered Tdap (Adacel) Unknown 04/14/2019 Administered Tdap (Adacel) Unknown 07/10/2021 Administered Tdap (Adacel) Unknown 02/04/2023 Administered Social History Tobacco Use: Social History Observation Description Date Details (start date - stop date) Never Smoker NA - NA Tobacco Use/Smoking Question Answer Notes Patient is a nonsmoker Alcohol Screen (Audit-C) Question Answer Notes Did you have a drink contain ing alcohol in the past year? Yes How often did you have 6 or more drinks on one occasion in the past year? Never (0 point) How many drinks did you have on a typical day when you were drinking in the past year? 1 or 2 drinks (0 point) How often did you have a dri nk containing alcohol in the past year? Weekly (3 points) Points 3 Interpretation Positive AUDIT-C (Standard) Question Answer Notes Did you have a drink contain ing alcohol in the past year? Yes How often did you have six o r more drinks on one occasion in the past year? Never (0 point) How many drinks did you have on a typical day when you were drinking in the past year? 3 or 4 drinks (1 point) How often did you have a dri nk containing alcohol in the past year? 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) Active confirmed Problem Carpal tunnel syndrome (69950765) CTS (carpal tunnel syndrome) (G56.00) Active confirmed Problem Acute bronchiolitis (2729253) Acute bronchiolitis (J21.9) Active confirmed Vital Signs Temperature 98.4 degrees Fahrenheit 12/01/2024 Blood pressure diastolic 80 mm Hg 12/01/2024 Height 65.5 in 12/01/2024 Blood pressure systolic 130 mm Hg 12/01/2024 Weight 213 lbs 12/01/2024 BMI 34.9 kg/m2 12/01/2024 Encounters Encounter Location Date Provider Diagnosis [place] [id number] [place] [address] 07/03/2024 David Hoy Back pain M54.9 [facility] [address] [place] [address] 11/12/2024 David Hoy CTS (carpal tunnel syndrome) G56.00 ; Ulnar nerve compression, right G56.21 and Well adult Z00.00 [facility] [address] [place] [address] 12/01/2024 David Hoy Dysuria R30.0 and UT I (urinary tract infection), uncomplicated N39.0 [facility] [address] [place] [address] 09/02/2024 David Hoy [facility] [address] [place] [address] 09/12/2024 David Hoy Unspecified symptoms and signs involving the genitourinary system R39.9 [facility] [address] [place] [address] 09/15/2024 David santi [facility] [address] [place] [address] 12/09/2024 David santi [facility] [address] [place] [address] 12/15/2024 David Sotelo Unspecified symptoms and signs involving the genitourinary system R39.9 [facility] [address] [place] [address] 12/15/2024 David santi [facility] [address] [place] [address] 12/18/2024 David santi [facility] [address] [place] [address] 12/21/2024 David [facility] [address] [place] [address] 01/23/2025 David santi [facility] [address] [place] [address] 02/18/2025 David Sotelo [facility] [address] [place] [address] 04/13/2025 David Royce CTS (carpal tunnel syndrome) G56.00 [facility] [address] [place] [address] 05/21/2025 David Hankinsy Dysuria R30.0 Assessments Encounter Date Diagnosis (ICD Code) Assessment Notes Treatment Notes Treatment Clinical Notes Section Notes 11/12/2024 Ulnar nerve compression, right (ICD-10 - G56.21) 11/12/2024 CTS (carpal tunnel syndrome) (ICD-10 - G56.00) 12/01/2024 Dysuria (ICD-10 - R30.0) 09/12/2024 Unspecified symptoms and signs involving the genitourinary system (ICD-10 - R39.9) 12/15/2024 Unspecified symptoms and signs involving the genitourinary system (ICD-10 - R39.9) 04/13/2025 CTS (carpal tunnel syndrome) (ICD-10 - G56.00) 05/21/2025 Dysuria (ICD-10 - R30.0) 07/03/2024 Back pain (ICD-10 - M54.9) 11/12/2024 Well adult (ICD-10 - Z00.00) 12/01/2024 UTI (urinary tract infection), uncomplicated (ICD-10 - N39.0) Plan Of Treatment Pending Test Test Name Order Date CMP (COMPLETE METABOLIC PANEL) 3 UA (URINALYSIS, COMPLETE) 09/12/2024 UA (URINALYSIS, COMPLETE) 12/15/2024 HEMOGLOBIN A1C (GLYCO) 11/12/2024 HEMOGLOBIN A1C (GLYCO) 10/11/2023 IRON, TOTAL 10/11/2023 LIPID PANEL (CHOL/TRIG/HDL/LDL) 10/11/20 LIPID PANEL (CHOL/TRIG/HDL/LDL) 11/12/19 25 CBC WITH DIFF 11/12/2024 CBC WITH DIFF 10/11/2023 MAMM Mammograms CAD 10/11/2023 Urine Culture 12/15/2024 Urine Culture 09/12/2024 Insulin Level 10/11/2023 Insulin Level 11/12/2024 CBC AUTO DIFF 12/18/2023 CBC AUTO DIFF 12/06/2023 THYROID PANEL (T4/TSH/FREE T3) 5 THYROID PANEL (T4/TSH/FREE T3) 3 MM screening mammo BI 11/12/2024 CMP (COMP MET MARTINEZ) w/eGFR CKD-EPI 2024 Insurance Providers Payer Name Payer Address Payer Phone Subscriber Number Group Number Insured Name Patient Relationship to Insured Coverage Start Date Coverage End Date [employer] [place] [employer] [address] [place] [address] [id number] Kamila Griggs Self - patient is the insured Medical (General) History Medical History History ICD Code Hypertension I10 Surgical History Surgery Date(Month/Year) EGD Dr. Herrera 04/11/23 tubal ligamet left knee CTS right wrist/ eblow gastric sleeve right ankle Hospitalization History Reason Date(Month/Year) see above
--- OUTSIDE RECORDS SUMMARY | 2025-05-26 12:29 | XMS_ITS | Patient Health Record ---
Author Organization [facility] Address [address] [place] [address] Care Team Providers Care Pantograph Transferrer Name Role Phone Reilly Holder Primary Care Provider Doris Peacock Unavailable [phone] Reason For Referral No Information Encounters Encounter Location Date Provider Diagnosis [place] [address] [place] [address] 06/12/2024 Reilly Holder Dental caries on pit and fissure surface penetrating into dentin K02.52 Assessments Encounter Date Diagnosis (ICD Code) Assessment Notes Treatment Notes Treatment Clinical Notes Section Notes 06/12/2024 Dental caries on pit and fissure surface penetrating into dentin (ICD-10 - K02.52) Plan Of Treatment No Information Insurance Providers Payer Name Payer Address Payer Phone Subscriber Number Group Number Insured Name Patient Relationship to Insured Coverage Start Date Coverage End Date Dental [employer] [place] [address] [place] [address] [id number] KAMILA LUJAN Self - patient is the insured 4 [employer] [facility] CareSource [address] [place] [address] [id number] KAMILA LUJAN Self - patient is the insured 4
--- OUTSIDE RECORDS SUMMARY | 2025-05-26 12:29 | XMS_ITS | Encounter Summary ---
Author Organization [facility] Address [address] [place] [address] Care Team Providers Care Pallet Sorter Name Role Phone Reginaldo Crane MD Primary Care Provider +-1 Octavio Celestin MD Unavailable [phone] Source Comments In the event this information is protected by the Federal Confidentiality of Alcohol and Drug AbusePatient Records regulations: The Federal rules restrict any use of the information to criminally investigate or prosecute any alcohol or drug abuse patient.[facility] Reason for Visit * Reason Comments HSAT Check In (Adult) Encounter Details Date Type Department Care Team (Late st Contact Info) Description 12/25/2018 Abstract Neurology [address] [place] [address] Main, Sleep Center [address] [place] [id number] HSAT Check In (Adult) Social History Tobacco Use Types Packs/Day Years [...] Industry 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
--- NOTE | 2025-05-26 12:57 | ECG_ITS ---
[facility] Test Date: 2025-05-26 Pat Name: KAMILA LUJAN Department: Room: - Gender: Female Director Physical Therapy: : 1965 Requested By: WINSTON SOTELO Order Number: [id number] Reading MD: VERA RENEE M.D. Measurements Intervals [place] Rate: 78 P: 70 VT: 162 QRS: 55 QRSD: 76 T: 56 QT: 354 QTc: 388 Interpretive Statements 1100 Sinus rhythm 9110 normal ECG Compared to ECG 11/29/2024 14:12:01 No significant changes Electronically Signed On 05-27-2025 6:53:11 EDT by VERA RENEE M.D.
--- NOTE | 2025-05-26 12:58 | XR_ITS ---
The [place] [id number] Patient Name: KAMILA LUJAN MRN: [id number] date: 1965 Sex: F Assigned Patient Location: ER Current Patient Location: ER Accession/Order Number: [id number] Exam Date: 05/26/2025 13:28 Report Date: 05/26/2025 13:28 At the request of: TREY PASTOR MD Procedure: XR chest 1V Single view chest: CLINICAL HISTORY: Chest Pain COMPARISON: Chest 11/29/2024 FINDINGS: The heart is normal in size. The lungs are clear. The pulmonary vasculature is normal. Mediastinum and hilar regions are unremarkable. No pleural effusions are seen. Visualized bones are intact. XR/XR chest 1V IMPRESSION: NEGATIVE CHEST. Impression dictated by: Carter Wilkinson Jr.OBobby 05/26/2025 1:28 PM Dictation Location: [place] [address] Electronically authenticated by: [id number] Y Date: 05/26/2025 13:28
[2025-05-26 13:16] LABS: Hematocrit 35.4 % (36.0-48.0); Hemoglobin 11.9 g/dL (12.0-16.0); Immature Granulocytes Abs Auto 0.01 10^3/uL (0.00-0.03); Immature Granulocytes Pct Auto 0.2 % (0.0-0.5); Lymphocytes Absolute Auto 1.4 10^3/uL (1.2-3.8); Mean Corpuscular HGB Conc 33.6 g/dL (29.9-35.2); Mean Corpuscular Hemoglobin 33.1 pg (26.7-34.0); Mean Corpuscular Volume 98.3 fL (81.0-99.0); Platelet Count 234 10^3/uL (150-450); Red Blood Count 3.60 10^6/uL (4.20-5.40); White Blood Count 5.4 10^3/uL (4.0-11.0)
[2025-05-26 13:20] LABS: Magnesium 2.1 mg/dL (1.8-2.4)
[2025-05-26 13:29] LABS: Alanine Aminotransferase 45 U/L (14-59); Albumin Globulin Ratio 1.1; Albumin Level 3.8 g/dL (3.4-5.0); Alkaline Phosphatase 49 U/L (46-116); Anion Gap 12.4; Aspartate Amino Transferase 35 U/L (15-37); Blood Urea Nitrogen 39.0 mg/dL (7.0-18.0); Calcium 9.0 mg/dL (8.5-10.1); Carbon Dioxide 27.0 mmol/L (21.0-32.0); Chloride 107 mmol/L (98-107); Estimated GFR (African America >60 (>=60 mL/min/1.73m^2); Estimated GFR (Non-African Ame 53 (>=60 mL/min/1.73m^2); Globulin 3.4 g/dL; Glucose 108 mg/dL (74-106); Potassium 4.4 mmol/L (3.5-5.1); Sodium 142 mmol/L (136-145); Total Protein 7.2 g/dL (6.4-8.2)
[2025-05-26] MEDS: KETOROLAC TROMETHAMINE 30 MG/ML VIAL 15 MG IVP (14:28)
--- NOTE | 2025-05-26 14:40 | ED.CHESTPAI1 ---
HPI - Chest Pain General Chief Complaint: Chest Pain Stated Complaint: CHEST PAINS Time Seen by Provider: 05/26/25 12:31 Mode of arrival: walk-in History of Present Illness HPI narrative: 60-year-old female is coming to the ER with a chest pain that she has been having for the last few days at least, and that she wakes up every morning with a chest pain that gets better during the day is mostly at the retrosternal area, she woke up with similar pain and it was more to the left anterior axillary line on the left side as well the patient pointing. She mentioned that the pain is more when she wakes up but during the day it is up and that been worked up before and they told her that this is mostly arthritic pain due to joint pain. The patient does take meloxicam daily for pain The patient right now still have some pressure on the left side and that is why she is coming to the ER she denies any nausea vomiting fever or any other concerns she also denies any cough or any difficulty breathing Related Data Home Medications ?Medication ?Instructions ?Recorded ?Confirmed aspirin 81 mg tablet,delayed 81 mg PO DAILY 04/03/23 05/26/25 release atorvastatin 80 mg tablet 80 mg PO DAILY 04/03/23 05/26/25 celecoxib 200 mg capsule (Celebrex) 200 mg PO DAILY 04/03/23 05/26/25 docusate sodium 100 mg capsule 100 mg PO BID 04/03/23 05/26/25 (Colace) ferrous sulfate 325 mg (65 mg 325 mg PO BID 04/03/23 05/26/25 iron) tablet lisinopril 40 mg tablet 40 mg PO DAILY 04/03/23 05/26/25 multivitamin (Daily Value tablet) 1 tab PO QAM 04/03/23 05/26/25 oxybutynin chloride 10 mg PO .qd 04/03/23 05/26/25 pantoprazole 40 mg tablet,delayed 40 mg PO BID 04/03/23 05/26/25 release Allergies Allergy/AdvReac Type Severity Reaction Status Date / Time Latex, Natural Rubber AdvReac Mild Rash Verified 05/26/25 12:31 Review of Systems ROS Status of ROS 10 or more systems reviewed and unremarkable except as noted in history and below [facility] Medical History (Updated 05/26/25 @ 14:40 by Courtney Kohler MD) Uterine prolapse ?N81.4 - Uterovaginal prolapse, unspecified (ICD-10) Menopausal state ?N95.1 - Menopausal and female climacteric states (ICD-10) Vitamin D deficiency ?E55.9 - Vitamin D deficiency, unspecified (ICD-10) Varicose veins of both lower extremities ?I83.93 - Asymptomatic varicose veins of bilateral lower extremities (ICD-10) Smoker ?F17.200 - Nicotine dependence, unspecified, uncomplicated (ICD-10) Morbid obesity ?E66.01 - Morbid (severe) obesity due to excess calories (ICD-10) Low back pain syndrome ?M54.50 - Low back pain, unspecified (ICD-10) Iron deficiency anemia ?D50.9 - Iron deficiency anemia, unspecified (ICD-10) HTN (hypertension) ?I10 - Essential (primary) hypertension (ICD-10) GERD (gastroesophageal reflux disease) ?K21.9 - Gastro-esophageal reflux disease without esophagitis (ICD-10) Eczema ?L30.9 - Dermatitis, unspecified (ICD-10) Venous insufficiency ?I87.2 - Venous insufficiency (chronic) (peripheral) (ICD-10) Cervical stenosis of spinal canal ?M48.02 - Spinal stenosis, cervical region (ICD-10) CAD (coronary artery disease) ?I25.10 - Atherosclerotic heart disease of [place] coronary artery without angina pectoris (ICD-10) Anxiety ?F41.9 - Anxiety disorder, unspecified (ICD-10) Anemia ?D64.9 - Anemia, unspecified (ICD-10) Surgical History (Updated 04/03/23 @ 13:17 by Jesenia Sams RN) S/P lateral meniscal repair ?Z98.890 - Other specified postprocedural states (ICD-10) H/O tubal ligation ?Z98.51 - Tubal ligation status (ICD-10) H/O elbow surgery ?Z98.890 - Other specified postprocedural states (ICD-10) History of carpal tunnel release ?Z98.890 - Other specified postprocedural states (ICD-10) H/O gastric sleeve ?Z90.3 - Acquired absence of stomach [part of] (ICD-10) Family History (Updated 04/03/23 @ 13:19 by Jesenia Sams RN) Mother Cardiac disease Father Family history of cancer Social History (Updated 04/03/23 @ 14:43 by Jesenia Sams RN) Within the past year, how often did you have a drink containing alcohol: 2-4 times a month Within the past year, how many standard drinks containing alcohol did you have on a typical day: 1 or 2 Within the past year, how often did you have six or more drinks on one occasion: less than monthly Total score: 1 Score interpretation: A score of 3 or more indicates drinking is likely to affect patient's safety. 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 General: Well-appearing and in no apparent distress. Skin: Warm, dry, no pallor noted. No rash. Head: Normocephalic, atraumatic. Neck: Supple, non-tender. Cardiovascular: Regular Rate and Rhythm without murmur, gallop or rub. Respiratory: No accessory muscle use or respiratory distress. Lungs are clear to auscultation, no wheezing, rales or rhonchi Chest Wall: no tenderness Back: No midline thoracic or lumbar vertebral tenderness. No CVA tenderness Musculoskeletal: normal ROM, no calf or popliteal tenderness, no lower extremity edema/swelling GI: Abdomen is soft, non-distended. Normal bowel sounds. No masses appreciated. No tenderness to palpation. No rebound, guarding, or rigidity noted. Neurological: A&O x4. No cranial nerve dysfunction observed. No truncal ataxia. Moves all extremities. Sensation intact. Psychiatric: Cooperative and interactive. Normal mood and affect. Constitutional Vital Signs, click to edit/add: Last Vital Signs Temp 98.9 F 05/26/25 12:31 Pulse 75 05/26/25 14:45 Resp 22 H 05/26/25 14:45 BP 125/76 05/26/25 14:45 Pulse Ox 96 05/26/25 14:45 O2 Del Method Room Air 05/26/25 12:31 Course Vital Signs Vital signs: Vital Signs Pulse Rate 88 05/26/25 12:28 Respiratory Rate 18 05/26/25 12:28 Temperature 98.9 F 05/26/25 12:31 Pulse Rate 75 05/26/25 14:45 Respiratory Rate 22 H 05/26/25 14:45 Blood Pressure 125/76 05/26/25 14:45 Pulse Oximetry 96 05/26/25 14:45 Oxygen Delivery Method Room Air 05/26/25 12:31 MDM - Chest Pain MDM Narrative Medical decision making narrative: The patient EKG showing sinus rhythm with a heart rate of [address] elevation or depression The patient presentation is mostly secondary to musculoskeletal pain specially that she mentioned that it eased up during the day after she wakes up it is mostly more significant and is mostly whenever she take a deep breath or moves. The 1 in the left side is more of a muscular pain as the patient mentioned that it gets worse whenever she take a deep breath Chest x-ray showed no acute pathology and the patient troponin repeated twice was negative within normal CBC and chemistry showed no acute significant pathology as well and the patient was feeling much better after being treated with Toradol Right now the patient just to continue supportive care The patient is to follow up with primary care physician in next 2-3 days or to return to the emergency department should any of the signs or symptoms worsen or new symptoms develop. The patient agrees with the following Diagnosis and Treatment plan and the patient will be discharged home. Lab Data Labs: Lab Results 05/26/25 05/26/25 Range/Units 13:00 13:52 WBC 5.4 (4.0-11.0) 10^3/uL RBC 3.60 L (4.20-5.40) 10^6/uL Hgb 11.9 L (12.0-16.0) g/dL Hct 35.4 L (36.0-48.0) % MCV 98.3 (81.0-99.0) fL MCH 33.1 (26.7-34.0) pg MCHC 33.6 (29.9-35.2) g/dL RDW 12.3 (11.0-15.0) % Plt Count 234 (150-450) 10^3/uL MPV 9.3 L (9.5-13.5) fL Neut % (Auto) 62.5 (43.0-75.0) % Lymph % (Auto) 25.5 (20.5-60.0) % Butts % (Auto) 9.3 (1.7-12.0) % Eos % (Auto) 1.9 (0.9-7.0) % Baso % (Auto) 0.6 (0.2-2.0) % Neut # (Auto) 3.4 (1.4-6.5) 10^3/uL Lymph # (Auto) 1.4 (1.2-3.8) 10^3/uL Butts # (Auto) 0.5 (0.3-0.8) 10^3/uL Eos # (Auto) 0.1 (0.0-0.7) 10^3/uL Baso # (Auto) 0.0 (0.0-0.1) 10^3/uL Abs Immat Gran (auto) 0.01 (0.00-0.03) 10^3/uL Imm/Tot Granulo (auto) 0.2 (0.0-0.5) % Sodium 142 (136-145) mmol/L Potassium 4.4 (3.5-5.1) mmol/L Chloride 107 (98-107) mmol/L Carbon Dioxide 27.0 (21.0-32.0) mmol/L Anion Gap 12.4 BUN 39.0 H (7.0-18.0) mg/dL Creatinine 1.05 H (0.55-1.02) mg/dL Est GFR ( Amer) >60 (>=60 mL/min/1.73m^2) Est GFR (Non-Af Amer) 53 L (>=60 mL/min/1.73m^2) BUN/Creatinine Ratio 37.1 Glucose 108 H (74-106) mg/dL Calcium 9.0 (8.5-10.1) mg/dL Magnesium 2.1 (1.8-2.4) mg/dL Total Bilirubin 0.5 (0.2-1.0) mg/dL AST 35 (15-37) U/L ALT 45 (14-59) U/L Alkaline Phosphatase 49 (46-116) U/L Troponin I High Sens 5.2 5.0 (4.0-51.3) pg/mL Total Protein 7.2 (6.4-8.2) g/dL Albumin 3.8 (3.4-5.0) g/dL Globulin 3.4 g/dL Albumin/Globulin Ratio 1.1 Discharge Plan Discharge Chief Complaint: Chest Pain Clinical Impression: Atypical chest pain Patient Disposition: Home, Self-Care Time of Disposition Decision: 14:40 Condition: Good Prescriptions / Home Meds: No Action aspirin 81 mg tablet,delayed release (DR/EC) 81 mg PO DAILY celecoxib [Celebrex] 200 mg capsule 200 mg PO DAILY Patient Comments: instructed patient to stop on 04/06/2023 docusate sodium [Colace] 100 mg capsule 100 mg PO BID ferrous sulfate 325 mg (65 mg iron) tablet 325 mg PO BID lisinopril 40 mg tablet 40 mg PO DAILY multivitamin [Daily Value] Tablet 1 tab PO QAM oxybutynin chloride 10 mg PO .qd Rx Instructions: 10 orally; pantoprazole 40 mg tablet,delayed release (DR/EC) 40 mg PO BID atorvastatin 80 mg tablet 80 mg PO DAILY Print Language: Vietnamese Instructions: Chest Wall Pain (ED) Referrals: Reginaldo Crane MD [Primary Care Provider, Family Practice] - 1 week
== END 2025-05-26 14:50 | disposition home or self-care (01) ==
PROVIDERS: Emergency Provider Emergency Medicine; PCP Family Medicine
DX: R07.89 Other chest pain (principal); Z79.899 Other long term (current) drug therapy; Z98.84 Bariatric surgery status; Z98.51 Tubal ligation status; Z87.891 Personal history of nicotine dependence
CPT/HCPCS: 36415; 71045; 80053; 83735; 84484; 85025; 93005; 96374; 99285; J1885

== ENCOUNTER 2025-06-15 09:52 | Outpatient (OUT) | payer OTHER, SELFPAY ==
--- OUTSIDE RECORDS SUMMARY | 2024-03-03 06:45 | XMS_ITS | Continuity of Care Document ---
Author Organization [facility] Address [address] [place] [address] Phone Care Team Providers Care Documentation Lead Name Role Phone Perfecto Aguayo DMD Unavailable Unavailable Allergies, Adverse Reactions, Alerts Substance Reaction Status Criticality No Known Allergies Active No Inform ation Medications Medication Instructions Dosage Effective Dates (start - stop) Status Comments Lasix 20 mg tablet take 1 tablet by ora l route every day 20 MG - Active oxybutynin chloride 2.5 mg tablet take 2 tablet by oral route 2 times every day 5 MG - Active Celebrex 50 mg capsule take 2 capsule by oral route every day 100 MG - Active lisinopril 2.5 mg tablet take 1 tablet by oral route every day 2.5 MG - Active Protonix 20 mg tablet,delayed release take 1 tablet by oral route 2 times every day 20 MG - Active Procedures Procedure Date Intraoral-periapical 1st Film Bitewig-single Film Oral Hygiene Instruction Limited Oral Eval [id number] Additional May Bitewig-single Film Oral Hygiene Instruction Limited Oral Eval Advance Directives Directive Yes / No Effective Date File Name No Information Encounters Encounter Description Practice Location Reason(s) For Visit Diagnoses Date Provider Providers Copied on Encounter [facility], [address], [place], [id number], [place] tel:[phone] Dental Clinic Dental ER (chief complaint) Encounter for screening for dental disorders [facility]. [address], [place], [id number], [place]. tel:[phone] [facility], [address], [place], [id number], [place] tel:[phone] Dental Clinic er (chief complaint) Encounter for screening for dental disorders [facility]. [address] [place], [address], [place]. tel:[phone] Family History Family Member Type Diagnosis Age At Onset No Information Payers Payer name Insurance type Covered republican ID Authorrenetta johnson(s) D [employer] [facility] [id number] D Medicaid [facility] [id number] Social History Type Description Quantity Date Captured Comments Alcohol Use Details Unknown Caffeine Use Details Unknown Tobacco Use Status No Information Smoking Status No Information Sex Female Sexual Orientation Straight or heterosexual Gender Identity Female Vital Signs Date / Time: Height Weight BMI Pulse Rate Blood Pressure Temperature Respiratory Rate Body Surface Area Head Circumference Head Circ. Percentile [place]./[place]. Percentile BMI percentile Pulse Ox Inhaled Ox 10:54 AM 81 /min 141/88 mm[Hg] Chief Complaint And Reason For Visit From encounter dated '03/03/2024 10:45'. Dental ER (chief complaint). Description: Dental ER Reason For Referral Reason For Referral No Information Plan Of Treatment Date Type Action Status Goal FOBT. Due on due Goal Depression screening. Due on due Goal Mammogram. Due on due Goal Tdap. Due on due Goal Unhealthy drug use screening . Due on due Goal FIT. Due on due Goal Hepatitis C screening. Due o n due Goal Tdap Vaccine. Due on 2023 due Goal Hep A. Due on du e Goal HPV. Due on due Goal FIT-DNA. Due on due Goal Influenza vaccine. Due on Ma y due Goal CT-Colonography. Due on due Goal PRAPARE ASSESSMENT. Due on M due Goal Lipid panel. Due on due Goal Colonoscopy. Due on due Goal Zoster vaccine (). Due on due Goal Colonoscopy. Due on due Goal Hep A. Due on du e Goal Depression screening. Due on due Goal Zoster vaccine (). Due on due Goal Mammogram. Due on due Goal Lipid panel. Due on due Goal PRAPARE ASSESSMENT. Due on A due Goal FOBT. Due on due Goal Tdap. Due on due Goal Tdap Vaccine. Due on 2022 due Goal Influenza vaccine. Due on Au due History Of Present Illness Encounter Date Complaint History Of Prese nt Illness Dental ER Dental ER er Functional Status Date Functional Assessmen t No Information Instructions Date Instruction Additional Infor mation No Information Assessments Type Assessment Date No Information Patient Care Teams Name Effective Dates (start - stop) Status Members No Information
--- OUTSIDE RECORDS SUMMARY | 2024-10-23 11:45 | XMS_ITS ---
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 FILLING. * Medical History: Objective: * Vitals: Assessment: Plan: * Treatment: * Images: * Electronic signature of Juan Holder DDS on 06/15/2025 at 09:56 AM EDT Sign off status: Pending * Provider: Fidencio Holder DDS Date: 10/23/2024 Generated for Tiffanie gutiérrez/Won/Grayson on: 0 06/15/2025 09:56 AM EDT
--- OUTSIDE RECORDS SUMMARY | 2025-06-15 09:56 | XMS_ITS | Clinical Summary ---
Author Organization [facility] Address [address] [place] [address] Care Team Providers Care Size Worker Name Role Phone Unavailable Primary Care Provider [...]
--- OUTSIDE RECORDS SUMMARY | 2025-06-15 09:56 | XMS_ITS | Clinical Summary ---
Author Organization [facility] Address [address] [place] [address] Care Team Providers Care Section Beamer Name Role Phone Reginaldo Crane MD Primary Care Provider +- Octavio Celestin MD Unavailable [phone] Allergies No known active allergies Medications * [...] N ot on file 09/26/2020 Data from: https://www.neighborhoodatlas.medicine.[facility].edu/. 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
--- OUTSIDE RECORDS SUMMARY | 2025-06-15 09:56 | XMS_ITS | Encounter Summary ---
Author Organization [facility] Address [address] [place] [address] Care Team Providers Care Diamond Selector Name Role Phone Reginaldo Crane MD Primary Care Provider +-6 Octavio Celestin MD Unavailable [phone] Source Comments In the event this information is protected by the Federal Confidentiality of Alcohol and Drug AbusePatient Records regulations: The Federal rules restrict any use of the information to criminally investigate or prosecute any alcohol or drug abuse patient.[facility] Reason for Visit * Reason Comments HSAT Check In (Adult) Encounter Details Date Type Department Care Team (Late st Contact Info) Description 12/25/2018 Abstract Neurology [address] [place] [address] Main, Sleep Center [address] [place] [id number] HSAT Check In (Adult) Social History Tobacco [...] Job Start Date Job End Date 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
--- OUTSIDE RECORDS SUMMARY | 2025-06-15 09:56 | XMS_ITS | Clinical Summary ---
Author Organization [facility] Address [address] [place] [address] Care Team Providers Care Delimber Operator Name Role Phone Reginaldo Crane MD Primary Care Provider [phone] Allergies Active Allergy Reactions Criticality Noted Date [...] Assessment & Plan (01/19/2023 4:00 PM EDT): [facility] II Continue GDMT- Lasix 20 mg daily- [...] Information Value Date Recorded Sex Assigned at Female 06/09/2025 3:56 PM EDT Legal Sex Female 12:10 AM EDT Gender Identity Female 06/09/2025 3:56 PM EDT Sexual Orientation Heterosexual or Straight 05/22 3:56 PM EDT Last Filed Vital Signs Vital Sign Reading [...] Description 06/15/2025 3:20 PM EDT Office Visit [facility] [address] [place] [address] Aly Donato, STUDIO DIRECTOR [address] [place] [address] Health Maintenance Due Date Last Done Comments [...] topic Insurance [employer] [place] [employer] Care Teams Delimber Operator Relationship Specialty Start Date End Date Reginaldo Crane MD [address] [facility] [address] [address] PCP - General 01/17/23
--- OUTSIDE RECORDS SUMMARY | 2025-06-15 09:56 | XMS_ITS | Encounter Summary ---
Author Organization [facility] Address [facility] [place] [address] Care Team Providers Care Oxyacetylene Cutter Name Role Phone Reginaldo Crane MD Primary Care Provider +-5 Octavio Celestin MD Unavailable [phone] Source Comments In the event this information is protected by the Federal Confidentiality of Alcohol and Drug AbusePatient Records regulations: The Federal rules restrict any use of the information to criminally investigate or prosecute any alcohol or drug abuse patient.[facility] Encounter Details Date Type Department Care Team (Late st Contact Info) Description 04/25/2019 Patient Msg BMI [facility] [address] [address] [place], [place] [id number] Jena Vick, RD [address] [place] [phone] RE: Request an Appointment Social History Tobacco [...] Job 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
--- OUTSIDE RECORDS SUMMARY | 2025-06-15 10:07 | XMS_ITS | CCD ---
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 Name Role Phone ISAAC LAROSE Referring Unavailable [...] Attending Unavailable Winston Crane MD Attending Provider [phone] Winston Crane MD Primary Care Provider [phone] Winston Crane Attending Unavailable Winston Crane Admitting Unavailable Winston Crane Primary Care Unavailable Winston Crane Attending Unavailable Winston Crane Admitting Unavailable ELTAHAWY, PATRICE Attending Unavailable ELTAHAWPATRICE Ruelas Attending Unavailable Allergies Allergy Classification Reported Allergen(s) Allergy Type Date of Onset Reaction(s) Facility (1 source) Cat Angioedema [facility] (1 source) DrugAllergiesUnable to Obtain [facility] Comment on above: Pharmacy/MD office c losed (5 sources) Latex; Translations: [latex] Drug allergy 3 lips [facility] Medications Current Medications Medication Drug Class(es) Dates Sig (Normalized) Sig (Original) acetaminophen 500 mg oral tablet (10 sources) Start: 11-26-2024 take 2 tablets by mouth three times daily Acetaminophen 500 mg tablet Active 1000 MG PO Three times daily November 26, 2024 12:00am Tylenol Active [id number] 200 actuat albuterol 0.09 mg/actuat metered dose [...] 1.5 mg/ml oral solution (2 sources) Uncompetitive D-suffop-T-aspartat e Receptor Antagonist, Sigma-1 Agonist Start: 08-27-2022 take 10 mL by mouth every eight hours [place] DM 7.5-7.5 MG/5ML 10 mL Orally every 8 hours for 5 days Aug, Active docusate sodium 100 mg oral tablet (4 sources) Start: 11-26-2024 Docusate Sodium 100 mg capsule Active MG PO November 26, 2024 12:00am Start: 02-09-2023 take 1 capsule by [facility] twice daily as needed for [...] 12:00am Start: 02-09-2023 take 1 tablet by [facility] twice daily ferrous sulfate 325 mg [...] Coronary arteriosclerosis; Translations: [Atherosclerotic heart disease of [place] coronary artery without angina pectoris] Onset: 07-04-2022 [...] Range Facility Office Visiton 12-23-2024 Follow-up visit [id number] Jackelyn Lujan 1965 F Date Provider Department Center 12/23/2024 Samantha-PATRICE NO CARD [facility] No family history on file Level of Service:95507 MS OFFICE/OUTPATIENT ESTABLISHED MOD MDM 30 MIN Normal [facility] Urine Cultureon 12-15-2024 Bacteria identified Cx Nom (U) ORGANISM: Escherichia coli (ESBL) (O:ESCCOLESBL) [place] Count >100,000 Aerobic HELENA Charge (NMIC56) SUSCEPTIBILITY [...] RESISTANT TO ALL B-LACTAM DRUGS. PERFORMED BY: [place] [address] PATHOLOGIST VENDOR ANALYST SHERYL REGALADO M.D. Normal [facility] Comment on above: Performed By: #### C UU #### [address] Influenza virus B Ag [Presen ce] in Upper respiratory specimen by Rapid immunoassayon 11-26-2024 FLUBV Ag IA.rapid Ql (Nph) Influenza virus B Ag [Presence] in Upper respiratory specimen by Rapid immunoassay [facility] No Panel Informationon 11-26 Influenza Type A (Rapid) Negative [facility] POC SARS CoV-2 Antigen Negative [facility] No Panel InformationOrdered By: Melvi Vega on 11-26-2024 Quick Strep (POC) [facility] Urine Cultureon 10-16-2024 Bacteria identified Cx Nom (U) 15,000 colonies/ml mixed bacterial skin contaminants 2 Days PERFORMED BY: [facility] [address] [place] [address] PATHOLOGIST VENDOR ANALYST SHERYL REGALADO M.D. Normal [facility] Comment on above: Performed By: #### C UU #### [address] Urine cultureOrdered By: Brandon Crane on 10-16-2024 Bacteria identified Cx Nom (U) Urine culture [facility] Office Visiton 01-16-2024 Follow-up visit [id number] Jackelyn Lujan 1965 F Date Provider Department Center 01/16/2024 [facility] CARD [facility] No family history on file Level of Service:45825 MS OFFICE/OUTPATIENT ESTABLISHED MOD MDM 30 MIN Normal [facility] Ambulatory Visit Summaryon 0 04-25-2023 Ambulatory Visit Summary PALLAVI LUJAN :1965 Visit Date:04/25/2023 Ambulatory Visit Instructions Your Diagnosis Iron deficiency anemia Your Care Team Attending Physician - ANNABEL BERRY, David Murphy Primary Care Physician - Winston Crane MD This Is Your Medications List [...] longer receiving treatment for. Arthritis Numbness Normal [facility] General Surgery Office/Clini c Noteon [...] SARS-CoV-2 (COVID-19) mRNA-1273 vaccine 04/19/2021 Recorded Normal [facility] Comment on above: Result Comment: Elec tronically Signed By: ANNABEL BERRY, David Joyce\Date and Time Signed: 04/25/23 16:13 EDT Pathology Noteon 04-16-2023 Pathology Note [id number]#1.00CD:127 Normal [facility] Outside Colonoscopyon 2022 Outside Colonoscopy [id number]#1.00CD:127 Normal [facility] Reminderson 04-12-2023 Reminders - From: Myra Escobedo LPN To: GSN - Clinical; Sent: 04/12/2023 13:58:02 EDT Show up: 03/11/2033 07:00:00 EDT Subject: colonoscopy recall Due Date/Time: 04/11/2033 07:00:00 EDT Reminder/Recall Patient due for screening colonoscopy 04/11/2033. Normal [facility] Pre-Certification Formon Pre-Certification Form [id number]#[id number]:127 [facility] Consent for Procedure/Surger yon 02-16-2023 Consent for Procedure/Surgery [id number]:127 [facility] Facesheeton 02-15-2023 Facesheet [id number]#1.00CD:127 [facility] Ambulatory Visit Summaryon 0 02-14-2023 [...] longer receiving treatment for. Arthritis Numbness Normal [facility] Physician Referralon 023 Physician Referral [id number]#1.00CD:127 Normal [facility] INSULINon 01-17-2023 Insulin 7.1 uIU/mL Normal 2.6-24.9 [facility] Comment on above: Performed By: #### I NSULIN #### [facility] [address] [address] [address] Demetri Leahy CBC AUTO DIFFon 01-16-2023 BASO # 0.0 103/ul Normal 0.0-0.1 [facility] Comment on above: Performed By: #### C BC #### [facility] [address] [address] [address] Demetri Leahy Basophils/100 WBC (Bld) 0.7 % Normal 0.2-2.0 [facility] Comment on above: Performed By: #### C BC #### [facility] [address] [address] [address] Demetri Leahy EO # 0.1 103/ul Normal 0.0-0.7 [facility] Comment on above: Performed By: #### C BC #### [facility] [address] [place] [address] Dr. Demetri Leahy Eosinophils/100 WBC (Bld) 2.4 % Normal 0.9-7.0 [facility] Comment on above: Performed By: #### C BC #### [facility] [address] [place] [address] Dr. Demetri Leahy Erythrocyte distribution width (RBC) [Ratio] 12.9 % Normal 11.0-15.0 [facility] Comment on above: Performed By: #### C BC #### [facility] [address] [place] [address] Dr. Demetri Leahy Hematocrit (Bld) [Volume fraction] 32.3 % Critically low 36.0-48.0 [facility] Comment on above: Performed By: #### C BC #### [facility] [address] [place] [address] Dr. Demetri Leahy Hemoglobin (Bld) [Mass/Vol] 10.5 g/dL Critically low 12.0-16.0 [facility] Comment on above: Performed By: #### C BC #### [facility] [address] [place] [address] Dr. Demetri Leahy IG # 0.01 10e3/ul Normal 0.00-0.03 [facility] Comment on above: Performed By: #### C BC #### [facility] [address] [place] [address] Dr. Demetri Leahy IG % 0.2 % Normal 0.0-0.5 [facility] Comment on above: Performed By: #### C BC #### [facility] [address] [place] [address] Dr. Demetri Leahy LYMPH # 1.3 103/ul Normal 1.2-3.8 [facility] Comment on above: Performed By: #### C BC #### [facility] [address] [place] [address] Dr. Demetri Leahy Lymphocytes/100 WBC (Bld) 21.9 % Normal 20.5-60.0 [facility] Comment on above: Performed By: #### C BC #### [facility] [address] [place] [address] Dr. Demetri Leahy MANUAL DIFF REQ NO Normal [facility] Comment on above: Performed By: #### C BC #### [facility] [address] [place] [address] Dr. Demetri Leahy MCH (RBC) [Entitic mass] 31.4 pg Normal 26.7-34.0 [facility] Comment on above: Performed By: #### C BC #### [facility] [address] [place] [address] Dr. Demetri Leahy MCHC (RBC) [Mass/Vol] 32.5 g/dL Normal 29.9-35.2 [facility] Comment on above: Performed By: #### C BC #### [facility] [address] [place] [address] Dr. Demetri Leahy MCV (RBC) [Entitic vol] 96.7 fL Normal 81.0-99.0 [facility] Comment on above: Performed By: #### C BC #### [facility] [address] [place] [address] Dr. Demetri Leahy MONO # 0.6 103/ul Normal 0.3-0.8 [facility] Comment on above: Performed By: #### C BC #### [facility] [address] [place] [address] Dr. Demetri Leahy Monocytes/100 WBC (Bld) 9.9 % Normal 1.7-12.0 [facility] Comment on above: Performed By: #### C BC #### [facility] [address] [place] [address] Dr. Demetri Leahy NEUT # 3.9 103/ul Normal 1.4-6.5 [facility] Comment on above: Performed By: #### C BC #### [facility] [address] [place] [address] Dr. Demetri Leahy Neutrophils/100 WBC (Bld) 64.9 % Normal 43.0-75.0 [facility] Comment on above: Performed By: #### C BC #### [facility] [address] [place] [address] Dr. Demetri Leahy Platelet mean volume (Bld) [Entitic vol] 9.0 fL Critically low 9.5-13.5 [facility] Comment on above: Performed By: #### C BC #### [facility] [address] [address] [address] Demetri Leahy PLT 210 103/ul Normal 150-450 [facility] Comment on above: Performed By: #### C BC #### [facility] [address] [place] [address] Dr. Demetri Leahy RBC 3.34 106/ul Critically low 4.20-5.40 [facility] Comment on above: Performed By: #### C BC #### [facility] [address] [place] [address] Dr. Demetri Leahy WBC 5.9 103/ul Normal 4.0-11.0 [facility] Comment on above: Performed By: #### C BC #### [facility] [address] [address] [address] Demetri Leahy FREE THYROXINE INDEX T7on FTI 2.05 Normal 1.30-4.50 [facility] Comment on above: Performed By: #### T 7, TSH, LIPID, CMP #### [facility] [address] [place] [address] Dr. Demetri Leahy T3U 36.0 % Normal 30.0-39.0 [facility] Comment on above: Performed By: #### T 7, TSH, LIPID, CMP #### [facility] [address] [place] [address] Dr. Demetri Leahy T4 [Mass/Vol] 5.70 ug/dL Normal 4.80-13.90 [facility] Comment on above: Performed By: #### T 7, TSH, LIPID, CMP #### [facility] [address] [place] [address] Dr. Demetri Leahy GLYCOHEMOGLOBIN A1Con 2022 ADA RECOMMENDATION SEE BELOW Normal [facility] Comment on above: Result Comment: ADA RECOMMENDED LIMIT 4.0 - 6.0 ADA THERAPEUTIC TARGET < 7.0 ACTION SUGGESTED > 7.0 Performed By: #### A 1C #### [facility] [address] [address] [address] Demetri Leahy Glucose [Mass/Vol] 88 mg/dL Normal [facility] Comment on above: Performed By: #### A 1C #### [facility] [address] [address] [address] Demetri Leahy HbA1c (Bld) [Mass fraction] 4.7 % Normal 4.5-6.2 [facility] Comment on above: Performed By: #### A 1C #### [facility] [address] [place] [address] Dr. Demetri Leahy IRONon 01-16-2023 Iron [Mass/Vol] 41.0 ug/dL Critically low 50.0-170.0 [facility] Comment on above: Performed By: #### I BRYAN #### [facility] [address] [place] [address] Dr. Demetri Leahy LIPID PROFILEon 01-16-2023 CHOL-HDL RATIO NORM SEE BELOW Normal [facility] Comment on above: Result Comment: 3.3 - 4.4 LOW RISK 4.4 - 7.1 AVERAGE RISK 7.1 - 11.0 MODERATE RISK >11.0 HIGH RISK Performed By: #### T 7, TSH, LIPID, CMP #### [facility] [address] [place] [address] Dr. Demetri Leahy Cholesterol [Mass/Vol] 145 mg/dL Normal <=200 [facility] Comment on above: Performed By: #### T 7, TSH, LIPID, CMP #### [facility] [address] [place] [address] Dr. Demetri Leahy Cholesterol in HDL [Mass/Vol] 71 mg/dL Critically high 40-60 [facility] Comment on above: Performed By: #### T 7, TSH, LIPID, CMP #### [facility] [address] [address] [address] Demetri Leahy Cholesterol in LDL [Mass/Vol] 42.4 mg/dL Normal [facility] Comment on above: Performed By: #### T 7, TSH, LIPID, CMP #### [facility] [address] [place] [address] Dr. Demetri Leahy Cholesterol.total/Ch olesterol in HDL [Mass ratio] 2.0 {ratio} Normal [facility] Comment on above: Performed By: #### T 7, TSH, LIPID, CMP #### [facility] [address] [address] [address] Demetri Leahy HDL NORMAL > or = 60 mg/dl - LO W CARDIOVASCULAR RISK <40 mg/dl - HIGH CARDIOVASCULAR RISK Normal [facility] Comment on above: Performed By: #### T 7, TSH, LIPID, CMP #### [facility] [address] [place] [address] Dr. Demetri Leahy LDL CALC NORMAL SEE BELOW Normal [facility] Comment on above: Result Comment: <100 mg/dl OPTIMAL 100 - 129 mg/dl NEAR OR ABOVE OPTIMAL 130 - 159 mg/dl BORDERLINE HIGH 160 - 189 mg/dl HIGH >190 mg/dl VERY HIGH Performed By: #### T 7, TSH, LIPID, CMP #### [facility] [address] [place] [address] Dr. Demetri Leahy Triglyceride [Mass/Vol] 158 mg/dL Critically high <=150 [facility] Comment on above: Performed By: #### T 7, TSH, LIPID, CMP #### [facility] [address] [place] [address] Dr. Demetri Leahy VLDL CALC 31.6 mg/dL Normal [facility] Comment on above: Performed By: #### T 7, TSH, LIPID, CMP #### [facility] [address] [place] [address] Dr. Demetri Leahy OCC BLD IMMUNO SCREENon - OCCULT BLOOD Negative Normal NEGATIVE [facility] Comment on above: Performed By: #### T 7, TSH, LIPID, CMP #### [facility] [address] [place] [address] Dr. Demetri Leahy PROF 14(COMP METB)on 023 Albumin [Mass/Vol] 3.8 g/dL Normal 3.4-5.0 [facility] Comment on above: Performed By: #### T 7, TSH, LIPID, CMP #### [facility] [address] [address] [address] Demetri Leahy Albumin/Globulin [Mass ratio] 1.2 {ratio} Normal [facility] Comment on above: Performed By: #### T 7, TSH, LIPID, CMP #### [facility] [address] [address] [address] Demetri Leahy ALP [Catalytic activity/Vol] 50 U/L Normal 46-116 [facility] Comment on above: Performed By: #### T 7, TSH, LIPID, CMP #### [facility] [address] [place] [address] Dr. Demetri Leahy ALT [Catalytic activity/Vol] 53 U/L Normal 14-59 [facility] Comment on above: Performed By: #### T 7, TSH, LIPID, CMP #### [facility] [address] [place] [address] Dr. Demetri Leahy Anion gap [Moles/Vol] 14.1 mmol/L Normal [facility] Comment on above: Performed By: #### T 7, TSH, LIPID, CMP #### [facility] [address] [place] [address] Dr. Demetri Leahy AST [Catalytic activity/Vol] 36 U/L Normal 15-37 [facility] Comment on above: Performed By: #### T 7, TSH, LIPID, CMP #### [facility] [address] [place] [address] Dr. Demetri Leahy Bilirubin [Mass/Vol] 0.4 mg/dL Normal 0.2-1.0 [facility] Comment on above: Performed By: #### T 7, TSH, LIPID, CMP #### [facility] [address] [place] [address] Dr. Demetri Leahy Calcium [Mass/Vol] 9.0 mg/dL Normal 8.5-10.1 [facility] Comment on above: Performed By: #### T 7, TSH, LIPID, CMP #### [facility] [address] [address] [address] Demetri Leahy Chloride [Moles/Vol] 109 mmol/L Critically high 98-107 [facility] Comment on above: Performed By: #### T 7, TSH, LIPID, CMP #### [facility] [address] [address] [address] Demetri Leahy CO2 [Moles/Vol] 28.0 mmol/L Normal 21.0-32.0 [facility] Comment on above: Performed By: #### T 7, TSH, LIPID, CMP #### [facility] [address] [place] [address] Dr. Demetri Leahy Creatinine [Mass/Vol] 0.79 mg/dL Normal 0.55-1.02 [facility] Comment on above: Performed By: #### T 7, TSH, LIPID, CMP #### [facility] [address] [place] [address] Dr. Demetri Leahy EGFR-AF NIGERIEN >60 Normal >=60 [facility] [place] Comment on above: Performed By: #### T 7, TSH, LIPID, CMP #### [facility] [address] [place] [address] Dr. Demetri Leahy EGFR-NON AF NIGERIEN >60 Normal >=60 [facility] Comment on above: Performed By: #### T 7, TSH, LIPID, CMP #### [facility] [address] [address] [address] Demetri Leahy Globulin (S) [Mass/Vol] 3.3 g/dL Normal [facility] Comment on above: Performed By: #### T 7, TSH, LIPID, CMP #### [facility] [address] [place] [address] Dr. Demetri Leahy Glucose [Mass/Vol] 86 mg/dL Normal 74-106 [facility] Comment on above: Performed By: #### T 7, TSH, LIPID, CMP #### [facility] [address] [place] [address] Dr. Demetri Leahy Potassium [Moles/Vol] 4.1 mmol/L Normal 3.5-5.1 [facility] Comment on above: Performed By: #### T 7, TSH, LIPID, CMP #### [facility] [address] [address] [address] Demetri Leahy Protein [Mass/Vol] 7.1 g/dL Normal 6.4-8.2 [facility] Comment on above: Performed By: #### T 7, TSH, LIPID, CMP #### [facility] [address] [place] [address] Dr. Demetri Leahy Sodium [Moles/Vol] 147 mmol/L Critically high 136-145 [facility] Comment on above: Performed By: #### T 7, TSH, LIPID, CMP #### [facility] [address] [place] [address] Dr. Demetri Leahy Urea nitrogen [Mass/Vol] 30.0 mg/dL Critically high 7.0-18.0 [facility] Comment on above: Performed By: #### T 7, TSH, LIPID, CMP #### [facility] [address] [place] [address] Dr. Demetri Leahy Urea nitrogen/Creatinine [Mass ratio] 38.0 mg/mg Normal [facility] Comment on above: Performed By: #### T 7, TSH, LIPID, CMP #### [facility] [address] [place] [address] Dr. Demetri Leahy Quick Strepon 01-16-2023 S. pyogenes Org specific cx Ql (Throat) Negative [facility] [employer] Other Quick Strep [facility] [employer] Other TSHon 01-16-2023 TSH 1.389 uIU/mL Normal 0.358-3.74 0 [facility] Comment on above: Performed By: #### T 7, TSH, LIPID, CMP #### [facility] [address] [place] [address] Dr. Demetri Leahy COVID/FLU RT-PCRon 2 SARS-CoV-2 (COVID-19) RNA KARTHIK+probe Ql (Unsp spec) Negative [employer] Other COVID/FLU RT-PCR Negative [employer] Other Quick Strepon 09-04-2022 S. pyogenes Org specific cx Ql (Throat) Negative [employer] Other Quick Strep [employer] Other COVID/FLU RT-PCRon 2 SARS-CoV-2 (COVID-19) RNA KARTHIK+probe Ql (Unsp spec) Negative [employer] Other COVID/FLU RT-PCR Negative [employer] Other Quick Strepon 08-27-2022 S. pyogenes Org specific cx Ql (Throat) Negative [employer] Other Quick Strep [employer] Other PROF CHEM 8 (BAS METB)on Anion gap [Moles/Vol] 13.6 mmol/L Normal [facility] Comment on above: Performed By: #### B MP #### [facility] [address] [address] [address] Demetri Leahy Calcium [Mass/Vol] 9.0 mg/dL Normal 8.5-10.1 [facility] Comment on above: Performed By: #### B MP #### [facility] [address] [address] [address] Demetri Leahy Chloride [Moles/Vol] 105 mmol/L Normal 98-107 [facility] Comment on above: Performed By: #### B MP #### [facility] [address] [address] [address] Demetri Leahy CO2 [Moles/Vol] 26.9 mmol/L Normal 21.0-32.0 [facility] [place] Comment on above: Performed By: #### B MP #### [facility] [address] [address] [address] Demetri Leahy Creatinine [Mass/Vol] 1.04 mg/dL Critically high 0.55-1.02 [facility] Comment on above: Performed By: #### B MP #### [facility] [address] [address] [address] Demetri Leahy EGFR-AF NIGERIEN >60 Normal >=60 [facility] Comment on above: Performed By: #### B MP #### [facility] [address] [address] [address] Demetri Leahy EGFR-NON AF NIGERIEN 54 mL/min/1.73m2 Critically low >=60 [facility] Comment on above: Performed By: #### B MP #### [facility] [address] [address] [address] Demetri Leahy Glucose [Mass/Vol] 99 mg/dL Normal 74-106 [facility] Comment on above: Performed By: #### B MP #### [facility] [address] [address] [address] Demetri Leahy Potassium [Moles/Vol] 4.5 mmol/L Normal 3.5-5.1 [facility] Comment on above: Performed By: #### B MP #### [facility] [address] [address] [address] Demetri Leahy Sodium [Moles/Vol] 141 mmol/L Normal 136-145 [facility] Comment on above: Performed By: #### B MP #### [facility] [address] [address] [address] Demetri Leahy Urea nitrogen [Mass/Vol] 44.0 mg/dL Critically high 7.0-18.0 [facility] Comment on above: Performed By: #### B MP #### [facility] [address] [address] [address] Demetri Leahy Urea nitrogen/Creatinine [Mass ratio] 42.3 mg/mg Normal [facility] Comment on above: Performed By: #### B MP #### [facility] [address] [address] [address] Demetri Leahy PROF CHEM 8 (BAS METB)on Anion gap [Moles/Vol] 10.3 mmol/L Normal [facility] Comment on above: Performed By: #### B MP #### [facility] [address] [address] [address] Demetri Leahy Calcium [Mass/Vol] 8.6 mg/dL Normal 8.5-10.1 [facility] Comment on above: Performed By: #### B MP #### [facility] [address] [address] [address] Demetri Leahy Chloride [Moles/Vol] 107 mmol/L Normal 98-107 [facility] Comment on above: Performed By: #### B MP #### [facility] [address] [address] [address] Demetri Leahy CO2 [Moles/Vol] 29.0 mmol/L Normal 21.0-32.0 [facility] Comment on above: Performed By: #### B MP #### [facility] [address] [address] [address] Demetri Leahy Creatinine [Mass/Vol] 1.42 mg/dL Critically high 0.55-1.02 [facility] Comment on above: Performed By: #### B MP #### [facility] [address] [address] [address] Demetri Leahy EGFR-AF NIGERIEN 46 mL/min/1.73m2 Critically low >=60 [facility] Comment on above: Performed By: #### B MP #### [facility] [address] [address] [address] Demetri Leahy EGFR-NON AF NIGERIEN 38 mL/min/1.73m2 Critically low >=60 [facility] Comment on above: Performed By: #### B MP #### [facility] [address] [address] [address] Demetri Leahy Glucose [Mass/Vol] 91 mg/dL Normal 74-106 [facility] Comment on above: Performed By: #### B MP #### [facility] [address] [address] Dr. Demetri Leahy Potassium [Moles/Vol] 5.3 mmol/L Critically high 3.5-5.1 [facility] Comment on above: Performed By: #### B MP #### [facility] [address], [place] [address] Dr. Demetri Leahy Sodium [Moles/Vol] 141 mmol/L Normal 136-145 [facility] Comment on above: Performed By: #### B MP #### [facility] [address] [place], [place] [address] Dr. Demetri Leahy Urea nitrogen [Mass/Vol] 48.0 mg/dL Critically high 7.0-18.0 [facility] Comment on above: Performed By: #### B MP #### [facility] [address] [place] [address] [address] Demetri Leahy Urea nitrogen/Creatinine [Mass ratio] 33.8 mg/mg Normal [facility] Comment on above: Performed By: #### B MP #### [facility] [address] [place] [address] [address] Demetri Leahy ELBOW COMPLETE MIN. 3 VIE on 07-10-2021 ELBOW COMPLETE MIN. 3 VIEWS Patient Name: PALLAVI LUJAN STUDY: ELBOW COMPLETE MIN 3 VIEWS Left INDICATION: L elbow trauma. COMPARISON: None ACCESSION NUMBER(S): [id number] ORDERING CLINICIAN: JACQUELINE ROBLES FINDINGS: Heterotopic ossification adjacent to the medial epicondyle of the distal humerus suggesting either chronic epicondylitis or remote injury. No acute fracture dislocation. IMPRESSION: Heterotopic ossification adjacent to the medial epicondyle of the distal humerus suggesting either chronic epicondylitis or remote injury. Electronically signed by: DOLORES PRICE MD Normal [facility] BN KNEE; COMPLT, 4 OR MORE V [facility] 07-10-2021 BN KNEE; COMPLT, 4 OR MORE VIEWS Patient Name: PALLAVI LUJAN STUDY: KNEE; COMPLT, 4 OR MORE VIEWS INDICATION: knee injury after fall. COMPARISON: None ACCESSION NUMBER(S): [id number] ORDERING CLINICIAN: ADELSO LUTHER FINDINGS: Mild osteoarthritis right knee with small posterior loose body. Remote posttraumatic changes from prior MCL injury with heterotopic ossification. No acute fracture or osseous abnormality otherwise. IMPRESSION: Mild osteoarthritis right knee with small posterior loose body. Remote posttraumatic changes from prior MCL injury with heterotopic ossification. Electronically signed by: DOLORES PRICE MD Normal [facility] NR CT C-SPINE WO CONTRASTon 07-10-[address] C-SPINE WO CONTRAST Patient Name: PALLAVI LUJAN STUDY: CT HEAD WO CONTRAST; CT C-SPINE WO CONTRAST; 07/10/2021 6:48 pm INDICATION: intox, head trauma, Lie Flat: Yes; fall at [employer], neck pain, Lie Flat: Yes COMPARISON: None. ACCESSION NUMBER(S): [id number]; [id number] ORDERING CLINICIAN: JACQUELINE LUTHER TECHNIQUE: Axial noncontrast [...] as stated. This study was interpreted at [facility], [place], [place]. Electronically signed by: ANDRIY PERKINS DO Normal [facility] NR CT HEAD WO CONTRASTon NR CT HEAD WO CONTRAST Patient Name: PALLAVI LUJAN STUDY: CT HEAD WO CONTRAST; CT C-SPINE WO CONTRAST; 07/10/2021 6:48 pm INDICATION: intox, head trauma, Lie Flat: Yes; fall at [employer], neck pain, Lie Flat: Yes COMPARISON: None. ACCESSION NUMBER(S): [id number]; [id number] ORDERING CLINICIAN: JACQUELINE ROBLES; ADELSO LUTHER TECHNIQUE: [...] as stated. This study was interpreted at [facility], [place], [place]. Electronically signed by: ANDRIY PERKINS, DO Normal [facility] Provider Note - ED v3on [...] without assoc (more content not included)... Normal [facility] Risk Screen - Adult Emergenc yon 07-10-2021 Risk Screen - Adult Emergency Preferred Language: Preferred Language: Preferred Language for Discussing Health Care (patient/designee)Malawian Advanced Directives: Advance Directive/DNRno Advance Directive Information [...] Communicatenone Learning Preferencesaudio Cultural Considerationsnone Developmental Considerationsnone Adventist Considerationsnone Other Learnersnone Learning Assessment (Other Learner): Learning Assessment (Other Learner): Other learner availableno Pressure Injury/TB/Substance: Pressure Injury: Pressure Injury Present on Admissionno Do you have a coughno Smoking Statusnever smoker (1) Alcohol Usedenies(1) Drug Usedenies (1) Drug 2 Usedenies (1) Admission Risk Screen: Significant IndicatorsComplete CAGE: CAGE: Is this an injured patient at a Trauma Center ([facility] [place]/[facility]/[place]): no Electronic Signatures: Uzma Menendez (RN) (Signed 10-Jul-2021 18:54) Authored: Preferred Language, Advanced Directives, Family Violence Adult, Learning Assessment (Patient), Learning Assessment (Other Learner), Pressure Injury/TB/Substance, Pressure Injury, CAGE Last Updated: 10-Jul-2021 18:54 by Uzma Menendez (RN) References: 1. Data Referenced From Provider Note - ED v3 10-Jul-2021 17:29 Normal [facility] Triage - EDon 07-10-2021 Triage [...] BMI (kg/m2): 34.485 Calculated BSA (m2) 2.08 English Coma Scale: Best Eye Response: (E4) spontaneous [...] 10-Jul-2021 17:15 by Lazarus Gupta (CONSUELO) Normal [facility] Cardiovascular Lab Reporton 09-22-2020 Cardiovascular Lab Report [facility] Patient Name: Pallavi Lujan [facility] MR #: [id number] Physician: Patrice No, Department of M.D. Medicine Service Date: 09/21/2020 Division of Birthdate: 1965 Cardiology Room #: Adult Cardiovascular Services [place] [address] Cardiovascular Laboratory Report FINAL IMPRESSIONS: 1. Mild [...] right internal jugular vein was obtained. A 6-[place] Islander 11 cm sheath was inserted without [...] the right radial artery was obtained. A 6-[place] Island[place] glide sheath was inserted without difficulty. [...] No M.D. Date Trans: 09/22/2020 02:14 A/elma [id number] cc: Winston Crane M.D. [address] [address] [facility] Telephone (COVHLD) PALLAVI LUJAN ([id number]) 1965 F Date Time Provider Department 02/01/20 ARLETTE ABRAHAM) NOELLE During your visit today, we recorded the following information about you: Arlette Abraham PA-C, EUGENIA 02/01/2020 10:03 AM Signed Brant, Thank you for the referral, this patient meets criteria for COVID-19 testing in accordance with criteria found on the [facility] Intranet COVID19 Toolkit as of February 01, 2020 10:02 AM Please inform the patient that the test has been ordered, and that the [facility] Scheduling Department will call to [...] Fully Assessed Reason for Visit: Covid-19 Hotline [3886] Primary Visit Diagnosis:Suspected Covid-19 Virus Infection [R68.89] Order(s):2019 CORONAVIRUS [SQCOVID] Order #: [id number] FUTURE MYCHART COVID-19 HOME MONITORING [0845637] Order #: [id number] Prescriptions as of 02/01/2020 Sig: ATORVASTATIN 80 [...] Encounter Status:Closed by ARLETTE [facility]RAHAM [facility]ALL[facility] ([id number]) 1965 F Date Time Provider Department 02/01/20 DEBBIE COSTA (RN) BLAZE During your visit today, we recorded the following information about you: Debbie Costa, RN, RN 02/01/2020 9:32 AM Signed Telephone Nurse Triage for Flu-like symptoms Patient evaluated by telephone nursing triage.patient seen at [place] ED last nite.-Dx Bronchitis. zpak started and [...] acetaminophen overdose can hurt the liver. ? [employer], the company that makes Tylenol, has different dosage instructions for Tylenol in [place] and the [place]. In [place], the maximum recommended dose per day is 4,000 mg or twelve (12) Regular-Strength (325 mg) pills. In the [place], [employer] recommends a maximum dose of ten (10) Regular-Strength (325 mg) pills. ? Before taking any medicine, read all the instructions on the package. PATIENT INSTRUCTIONS: At present, these are our recommendations regarding the coronavirus (COVID-19) outbreak: - Wash your hands regularly for at least 20 seconds with soap and water, especially before eating. - If soap/water are unavailable, use a hand interactive producer with at least 60% alcohol - Avoid [...] large groups of people (sporting events, concerts, [employer] ab[employer]a, etc). - Avoid unnecessary domestic and international travel, including travel through large international airports. - If traveling, wipe down your airplane seat (and tray) with a disinfecting wipe. If you have a fever, cough or shortness of breath, or are otherwise concerned you have COVID-19, we ask that you do not come to any [facility] facility without calling your primary care physician or speaking to a provider using a virtual visit using [facility] Spacebikini? Online. You will be evaluated to determine [...] Additional information can be found on the [facility] and [facility] web sites: https://www.cdc.gov/coronav irus/2019-nCoV/index.html ? [email or web address]://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 [facility] Comment on above: Result Comment: This test was developed and its performance characteristics determined by [facility]'s [facility]. This test has been authorized by FDA under an Emergency Use Authorization (EUA). This test has been validated in accordance with the FDA's Guidance Document Policy for Diagnostics Testing in Laboratories Certified to Perform High Complexity Testing under CLIA prior to Emergency use Authorization for Coronavirus Disease 2019 during the Public Health Emergency issued on December 20, 2019. 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 Author Type: Physician Histologic Aide Type: Progress Notes Filed: 02/01/2020 12:52 PM Note Text: Telemedicine Visit - Distance Health Virtual Visit Note This Team Access Model visit is a virtual encounter. It required patient-provider interaction for the medical decision making as documented below. Patient seen on Spacebikini Online platform. Location of patient: [place] History of Present Illness Pallavi Lujan is [...] in providing you the best care. Normal [facility] PROGRESS HNO ID: [id number] Author: Cynthia Vickers (Pa) Service: ? Author Type: Physician Histologic Aide Type: Progress Notes Filed: 02/01/2020 9:56 AM Note Text: Telemedicine Visit - Distance Health Telephone Visit Note This Team Access Model visit is a virtual encounter. It required patient-provider interaction for the medical decision making as documented below. The patient is a [facility] employee: No Location of patient: [place] History of Present Illness Pallavi Lujan is a 54 year old female who presents with 1 days of symptoms that are stable. Pt reports that yesterday she all of a sudden felt unwell. Went to ER in [place] last night and reports that tested negative [...] fail to improve Cynthia Vickers PA-C Normal [facility] CNOVon 05-26-2019 CNOV Office Visit (GSPSMN ) PALLAVI LUJAN ([id number]) 1965 F Date Time Provider Department 05/26/19 1:00 PM AMELIE ROBLEDO GSPSMN During your visit today, we recorded the following information about you: Amelie Robledo, PHD 05/26/2019 2:28 PM Signed [facility] BARIATRIC SURGERY BEHAVIORAL HEALTH EVALUATION DATE OF SERVICE: 05/26/2019 TIME OF SERVICE: 1:10 PM - 2:10 PM COST CENTER: 3B CPT CODE: 20490 Psychiatric diagnostic evaluation BILLING CODE: ENDO PSYL [...] strategies have been effective. The patient notes christianity practice is: Yarsani; will think about whether she'd take blood [...] AFTER COMPLETION OF GROUP (To schedule, call [phone]) *Continue to avoid alcohol in preparation for [...] emotional and behavioral readiness (To schedule call [phone]) *Read Preparing for Weight Loss Surgery: Workbook (Treatments That Work) by Kris Bazzi, Reji Ndiaye, and Monse Alcantar ([employer], 2006) *continue CPAP Adherence *implement [...] any questions. Amelie Robledo Ph.D., Clinical Psychologist; [facility] Director of Behavioral Services BEHAVIORAL HEALTH BARIATRIC [...] by AMELIE ROBLEDO PHD on 05/26/19 Normal [facility] CNOV Office Visit (GSPSMN ) PALLAVI LUJAN ([id number]) 1965 F Date Time Provider Department 05/26/19 12:00 PM PSYL TESTING MAIN GSPSMN During your visit today, we recorded the following information about you: Amelie Robledo, PHD 05/26/2019 3:52 PM Signed [facility] PSYCHOLOGICAL TEST REPORT PATIENT: Pallavi Lujan ( ) TEST ADMINISTERED: [place] Multiphasic Personality Inventory-2 Restructured Form (MMPI2-RF) Binge Eating Questionnaire (BEQ) DATE: ADMINISTERED: May 26, 2019 DATE REVIEWED: May 26, 2019 TIME REVIEWED (start/stop): 3:17 PM - 3:55 PM BILL / Venkat, CPT#: 66598.59 computer administration of test. 61025 (1 unit) The patient completed the MMPI2-RF in the Bariatric and Metabolic Colon and was proctored by trained personnel. The fha underwriter was available for help with the testing [...] AFTER COMPLETION OF GROUP (To schedule, call [phone]) *Continue to avoid alcohol in preparation for [...] emotional and behavioral readiness (To schedule call [phone]) *Read Preparing for Weight Loss Surgery: Workbook (Treatments That Work) by Kris Bazzi, Reji Ndiaye, and Monse Alcantar ([employer], 2006) *continue CPAP Adherence *implement [...] patient can request a written copy through [employer]. This report is not intended for [...] by AMELIE ROBLEDO PHD on 05/26/19 Normal [facility] PROGRESSon 05-26-2019 PROGRESS HNO ID: [id number] Author: Amelie Robledo Service: ? Author Type: Physician Type: Progress Notes Filed: 05/26/2019 3:52 PM Note Text: [facility] PSYCHOLOGICAL TEST REPORT PATIENT: Pallavi Lujan ( ) TEST ADMINISTERED: [place] Multiphasic Personality Inventory-2 Restructured Form (MMPI2-RF) Binge Eating Questionnaire (BEQ) DATE: ADMINISTERED: May 26, 2019 DATE REVIEWED: May 26, 2019 TIME REVIEWED (start/stop): 3:17 PM - 3:55 PM BILL / Venkat, CPT#: 74671.59 computer administration of test. 63540 (1 unit) The patient completed the MMPI2-RF in the [facility] Metabolic Colon and was proctored by trained personnel. The fha underwriter was available for help with the testing [...] AFTER COMPLETION OF GROUP (To schedule, call [phone]) *Continue to avoid alcohol in preparation for [...] emotional and behavioral readiness (To schedule call [phone]) *Read Preparing for Weight Loss Surgery: Workbook (Treatments That Work) by Kris Bazzi, Reji Ndiaye, and Monse Alcantar ([employer], 2006) *continue CPAP Adherence *implement [...] patient can request a written copy through [employer]. This report is not intended for forensic purposes. mAelie Robledo, Ph.D. Psychologist [facility] PROGRESS HNO ID: [id number] Author: Amelie Robledo Service: ? Author Type: Physician Type: Progress Notes Filed: 05/26/2019 2:28 PM Note Text: [facility] BARIATRIC SURGERY BEHAVIORAL HEALTH EVALUATION DATE OF SERVICE: 05/26/2019 TIME OF SERVICE: 1:10 PM - 2:10 PM COST CENTER: 3BO CPT CODE: 21215 Psychiatric diagnostic evaluation BILLING CODE: ENDO PSYL MAIN GN8/[place] DATE OF FIRST SERVICE THIS CYCLE: 05/26/2019 SESSION #: 1 The patient signed the Informed Consent for Psychological Evaluation AND Care Form, and the [facility] care insurance benefits, fees for service, [...] strategies have been effective. The patient notes christianity practice is: Yarsani; will think about whether she'd take blood [...] AFTER COMPLETION OF GROUP (To schedule, call [phone]) *Continue to avoid alcohol in preparation for [...] emotional and behavioral readiness (To schedule call [phone]) *Read Preparing for Weight Loss Surgery: Workbook (Treatments That Work) by Kris Bazzi, Reji Ndiaye, and Monse Alcantar ([employer], 2006) *continue CPAP Adherence *implement [...] any questions. Amelie Robledo Ph.D., Clinical Psychologist; [facility] Director of Behavioral Services BEHAVIORAL HEALTH BARIATRIC EVALUATION SUMMARY DATE : 05/26/2019 PATIENT NAME: Ms. Pallavi Lujan 1. Consent: Fair 2. Expectations:Fair 3. Social support :Good 4. Mental Health :Good 5. Chemical/Alcohol Abuse/Dependence: Guarded 6. Eating Behaviors:Good 7. Adherence : Good 8. Coping/Stressors:Fair 9. Overall Psychological Impression: Fair Normal [facility] CNCNPATEDon 05-19-2019 CNCNPATED Education (BMIREJ) PALLAVI LUJAN Nora ([id number]) 1965 F Date Time Provider Department 05/19/19 [...] guidelines for weight loss surgery and has [employer] Insurance therefore is required to complete 6 [...] 4. Participate in sitting exercise/therapy as possible. AppSame Fahad Marquis 30 minutes each - every [...] May 19, 2019 TIME: 10:06 AM PAGER: [phone] Primary Visit Diagnosis:Class 3 severe obesity due [...] Status:Closed by VIKAS SANTOS on 05/19/19 Normal [facility] PROGRESSon 05-19-2019 PROGRESS HNO ID: [id number] Author: Vikas (Rd) Nicanor Service: ? Author [...] guidelines for weight loss surgery and has [employer] Insurance therefore is required to complete 6 [...] May 19, 2019 TIME: 10:06 AM PAGER: [phone] Normal [facility] CNCNPATEDon 03-14-2019 CNCNPATED Education (BMIREJ) TAIPALLAVI ([id number]) 1965 F Date Time Provider Department 03/14/19 2:00 PM VIKAS SANTOS (RAVI) BMIREJ Reason for Visit: Reassessment [674] Patient Education [91] Progress Notes: Vikas Santos RD 03/14/2019 5:08 PM Signed [facility] AMBULATORY PATIENT EDUCATION NOTE-Established Shared [...] do you eat deep fried foods (chips, [place] Islander fries, fried meats, etc) Never How [...] guidelines for weight loss surgery and has [employer] Insurance therefore is required to complete 6 [...] March 14, 2019 TIME: 4:55 PM PAGER: [phone] Primary Visit Diagnosis:Class 3 severe obesity due [...] Encounter Status:Closed by VIKAS SANTOS on 03/14/19 [facility] PROGRESSon 03-14-2019 PROGRESS HNO ID: [id number] Author: Vikas Santos Service: ? Author Type: Registered Dietitian Type: Progress Notes Filed: 03/14/2019 5:08 PM Note Text: [facility] AMBULATORY PATIENT EDUCATION NOTE-Established Shared [...] do you eat deep fried foods (chips, [place] Islander fries, fried meats, etc) Never How [...] guidelines for weight loss surgery and has [employer] Insurance therefore is required to complete 6 [...] March 14, 2019 TIME: 4:55 PM PAGER: [phone] Normal [facility] CNCNPATEDon 02-17-2019 CNCNPATED Education (BMIREJ) PALLAVI LUJAN ([id number]) 1965 F Date Time Provider Department 02/17/19 [...] skip meals. - - met 2.? Begin 8788-1545 calorie partial liquid diet (refer to handout) [...] guidelines for weight loss surgery and has [employer] Insurance therefore is required to complete 6 [...] April appointment today prior to leaving at [facility] if preferred location Referred/Supervised by: Flores/Boss MNT Billing Type: Re-assess/15 min 2 units SIGNATURE: Vikas Santos RD PATIENT NAME: Pallavi Lujan DATE: February 17, 2019 TIME: 8:38 AM PAGER: [phone] Primary Visit Diagnosis:Class 3 severe obesity due [...] Encounter Status:Closed by VIKAS SANTOS on 02/17/19 [facility] PROGRESSon 02-17-2019 PROGRESS HNO ID: [id number] Author: Vikas Santos Service: ? Author Type: Registered Dietitian Type: Progress Notes Filed: 02/17/2019 11:26 AM Note Text: Nutritional Therapy Pre op weight loss surgery Sleeve Gastrectomy Re-Assessment PROGRESS: Nutrition Intervention (date of last encounter 01/17/2019) Read Your Guide to Surgery before next visit - - met 1.? Do not skip meals. - - met 2.? Begin 1313-2857 calorie partial liquid diet (refer to handout) [...] guidelines for weight loss surgery and has [employer] Insurance therefore is required to complete 6 [...] April appointment today prior to leaving at [facility] if preferred location Referred/Supervised by: Grant MYERS Billing Type: Re-assess/15 min 2 units SIGNATURE: Vikas Santos RD PATIENT NAME: Pallavi Melendez Tai DATE: February 17, 2019 TIME: 8:38 AM PAGER: [phone] Normal [facility] CNOVon 02-14-2019 CNOV Office Visit (BMIREJ ) PALLAVI ULJAN Nora ([id number]) 1965 F Date Time Provider Department 02/14/19 [...] goal weight prior to liquid fast: Per funeral pre arrangement counselor Surgically Cleared with completion of the below: [...] Yuni Flores MD Referring Provider: YUNI FLORES) [[id number]] Allergies As of Date: 02/14/2019 (No Known Allergies) Date Reviewed: 02/14/2019 Reviewed by: Ernestine Spaulding - Fully Assessed Reason for Visit: New Patient [172] Primary Visit Diagnosis:Morbid obesity (HCC) [E66.01] Other Visit Diagnosis:Gastroesophageal reflux disease, esophagitis presence not specified [K21.9] Order(s):EGD [7348021] Order #: [id number] FUTURE Prescriptions as of 02/14/2019 Sig: ATORVASTATIN [...] Encounter Status:Closed by YUNI FLORES on 02/14/19 [facility] PROGRESSon 02-14-2019 PROGRESS HNO ID: [id number] Author: Yuni Flores Service: ? Author Type: [...] chronic medical conditions associated with obesity include [place] diabetes, hypertension taking Norvasc, lisinopril, metoprolol and [...] goal weight prior to liquid fast: Per funeral pre arrangement counselor Surgically Cleared with completion of the below: [...] record and US mail, Yuni Flores MD [facility] PROGRESSon 12-19-2018 Protein mass conc HNO ID: [id number] Author: Ailyn Leal) Alin Ferrer Service: Radiology Author Type: Piano Regulator Inspector Type: Progress Notes Filed: 12/19/2018 2:41 PM [...] OCHOA RT December 19, 2018 2:40 PM [facility] XR CHEST 2V FRONTAL/LATon XR CHEST [...] silhouette. Other: . IMPRESSION: Mild bibasilar atelectasis. Power Lineman: PSCB Transcribe Date/Time: Dec 19 2018 2:47P Dictated by : RUTH ANN OWENS MD This examination was interpreted and the report reviewed and electronically signed by: RUTH ANN OWENS MD on Dec 19 2018 2:48PM EST [id number] Normal [facility] Vital Signs Date Time Vital Sign Value Performing Clinician Facility 11-26-2024 09:48-0500 Body height 165.1 cm Winston Crane MD Work Phone: [facility] 11-26-2024 09:48-0500 Body mass index (BMI) [Ratio] 34.9 kg/m2 Winston Crane MD Work Phone: [facility] 11-26-2024 09:48-0500 Body temperature 98.6 [degF] Winston Crane MD Work Phone: [facility] 11-26-2024 09:48-0500 Body weight 95.25 kg Winston Crane MD Work Phone: [facility] 11-26-2024 09:48-0500 Diastolic blood pressure 85 mm[Hg] Winston Crane MD Work Phone: [facility] 11-26-2024 09:48-0500 Heart rate 119 /min Winston Crane MD Work Phone: [facility] 11-26-2024 09:48-0500 Respiratory rate 18 /min Winston Crane MD Work Phone: [facility] 11-26-2024 09:48-0500 SaO2% (BldA) [Mass fraction] 94 % Winston Crane MD Work Phone: [facility] 11-26-2024 09:48-0500 Systolic blood pressure 150 mm[Hg] Winston Crane MD Work Phone: [facility] 02-14-2023 15:47-0400 Blood Pressure Location David MACKL [facility] [place] 02-14-2023 15:47-0400 Diastolic blood pressure 82 mm[Hg] David NILL [facility] [place] 02-14-2023 15:47-0400 Heart rate 82 /min David NILL [facility] [place] 02-14-2023 15:47-0400 Respiratory rate 16 /min David NILL [facility] [place] 02-14-2023 15:47-0400 Systolic blood pressure 132 mm[Hg] David NILL [facility] [place] 02-04-2023 13:50-0400 Body height 165.1 cm Kaitlin Lani Other [facility] Other 02-04-2023 13:50-0400 Body mass index (BMI) [Ratio] 35.44 kg/m2 Kaitlin Lani Other [facility] Other 02-04-2023 13:50-0400 Body temperature 97.1 [degF] Kaitlin Garibay Other [facility] Other 02-04-2023 13:50-0400 Body weight 96.62 kg Kaitlin Lani Other [facility] Other 02-04-2023 13:50-0400 Diastolic blood pressure 71 mm[Hg] Kaitlin Garibay Other [facility] Other 02-04-2023 13:50-0400 Respiratory rate 18 /min Kaitlin Garibay Other [facility] Other 02-04-2023 13:50-0400 SaO2% (BldA) [Mass fraction] 96 % Kaitlin Contrerasmond Other [facility] Other 02-04-2023 13:50-0400 Systolic blood pressure 110 mm[Hg] Kaitlin Lani Other [facility] Other 01-16-2023 16:45-0400 Body height 165.1 cm Yolie Cross Other [facility] Other 01-16-2023 16:45-0400 Body mass index (BMI) [Ratio] 36.27 kg/m2 Yolie Cross Other [facility] Other 01-16-2023 16:45-0400 Body temperature 97.3 [degF] Yolie Cross Other [facility] Other 01-16-2023 16:45-0400 Body weight 98.88 kg Yolie Cross Other [facility] Other 01-16-2023 16:45-0400 Respiratory rate 18 /min Yolie Cross Other [facility] Other 01-16-2023 16:45-0400 SaO2% (BldA) [Mass fraction] 97 % Yolie Cross Other [facility] Other 09-04-2022 13:50-0500 Body height 165.1 cm Kaitlin Lani Other [facility] Other 09-04-2022 13:50-0500 Body mass index (BMI) [Ratio] 35.94 kg/m2 Kaitlin Lani Other [facility] Other 09-04-2022 13:50-0500 Body temperature 97.1 [degF] Kaitlin Lani Other [facility] Other 09-04-2022 13:50-0500 Body weight 97.98 kg Kaitlin Lani Other [facility] Other 09-04-2022 13:50-0500 Diastolic blood pressure 75 mm[Hg] Kaitlin Lani Other [facility] Other 09-04-2022 13:50-0500 Respiratory rate 18 /min Kaitlin Garibay Other [facility] Other 09-04-2022 13:50-0500 SaO2% (BldA) [Mass fraction] 97 % Kaitlin Garibay Other [facility] Other 09-04-2022 13:50-0500 Systolic blood pressure 141 mm[Hg] Kaitlin Garibay Other [facility] Other 08-27-2022 10:35-0500 Body height 165.1 cm Yolie Cross Other [facility] Other 08-27-2022 10:35-0500 Body mass index (BMI) [Ratio] 36.07 kg/m2 Yolie Cross Other [facility] Other 08-27-2022 10:35-0500 Body temperature 97.6 [degF] Yolie Cross Other [facility] Other 11-06-2022 10:35-0500 Body weight 98.34 kg Yolie Cross Other [facility] Other 08-27-2022 10:35-0500 Diastolic blood pressure 81 mm[Hg] Yolie Cross Other [facility] Other 08-27-2022 10:35-0500 Respiratory rate 18 /min Yolie Cross Other [facility] Other 08-27-2022 10:35-0500 SaO2% (BldA) [Mass fraction] 98 % Yolie Cross Other [facility] Other 08-27-2022 10:35-0500 Systolic blood pressure 126 mm[Hg] Yolie Tay Other [facility] Other 08-18-2021 15:30-0400 Body height 165.1 cm Tai Olexa Other [facility] Other 08-18-2021 15:30-0400 Body mass index (BMI) [Ratio] 48.25 kg/m2 Tai Olexa Other [facility] Other 08-18-2021 15:30-0400 Body weight 131.54 kg Tai Olexa Other [facility] Other 07-10-2021 19:10-0400 Body height 165.1 cm Pcp Unknown [facility] 07-10-2021 19:10-0400 Body temperature 97.52 [degF] Pcp Unknown [facility] 07-10-2021 19:10-0400 Body weight 94 kg Pcp Unknown [facility] 07-10-2021 19:10-0400 Diastolic blood pressure 68 mm[Hg] Pcp Unknown [facility] 07-10-2021 19:10-0400 Heart rate 78 /min Pcp Unknown [facility] 07-10-2021 19:10-0400 Respiratory rate 16 /min Pcp Unknown [facility] 07-10-2021 19:10-0400 SaO2% (BldA) [Mass fraction] 96 % Pcp Unknown [facility] 07-10-2021 19:10-0400 Systolic blood pressure 127 mm[Hg] Pcp Unknown [facility] Encounters Encounter Date Encounter Type Care Provider Facility Start: 12-23-2024 End: 12-23-2024 ambulatory [facility] Start: 12-15-2024 End: 12-15-2024 ambulatory Winston Crane MD Work Phone: [facility] Work Phone: Start: 12-15-2024 End: 12-15-2024 Departed Referred Winston Crane MD Work Phone: [facility] Start: 11-26-2024 End: 11-26-2024 ambulatory Winston Crane MD Work Phone: [facility] Work Phone: Start: 11-26-2024 End: 11-26-2024 Patient encounter procedure Winston Crane MD Work Phone: Count Includes [facility] Work Phone: Start: 10-16-2024 End: 10-16-2024 ambulatory Winston Crane Facility:[facility] Start: 10-16-2024 End: 10-16-2024 Departed Referred Winston Crane MD Work Phone: [facility] Start: 01-16-2024 End: 01-16-2024 ambulatory [facility] Start: 04-25-2023 End: 04-26-2023 ambulatory David JIN Facility:[facility] Start: 04-25-2023 End: 04-25-2023 Patient encounter procedure David JIN General Surgery Nill[facility] [place] Start: 04-11-2023 End: 04-12-2023 ambulatory David JIN Facility:[id number] Start: 03-14-[address] WINSTON CRANE . Facili ty: Start: 02-14-2023 End: 02-15-2023 ambulatory David Murphy NILL Facility:[facility] Start: 02-14-2023 End: 02-14-2023 Patient encounter procedure David Murphy NILL General [facility] Start: 02-04-2023 End: 02-04-2023 ambulatory Kaitlin Garibay Other [facility] Other Start: 02-04-2023 Office outpatient vi sit 15 minutes Kaitlin Garibay [facility] Start: 01-25-2023 ambulatory David JIN Facility:[facility] Start: 01-19-2023 Encounter for genera l adult medical examination without abnormal findings DR WINSTON CRANE . [facility] Start: 01-16-2023 Office outpatient vi sit 15 minutes Yolie Cross [facility] Start: 01-16-2023 End: 01-17-[address] WINSTON CRANE . [facility] Other Start: 01-16-2023 End: 01-17-2023 Encounter for general adult medical examination without abnormal findings DR WINSTON CRANE . Facility: Start: 09-04-2022 End: 09-04-2022 ambulatory Kaitlin Garibay Other [facility] Other Start: 09-04-2022 Office outpatient vi sit 15 minutes Kaitlin Garibay [facility] Start: 08-27-2022 End: 08-27-2022 ambulatory Yolie Cross Other [facility] Other Start: 08-27-2022 Office outpatient vi sit 25 minutes Yolie Cross [facility] Start: 07-05-2022 End: 07-06-[address] PATRICE NO Facility:[facility] Start: 06-30-2022 End: 07-01-[address] WINSTON CRANE . Facility:[facility] Start: 11-01-2021 End: 11-01-2021 ambulatory Tai Olexa Other [facility] Other Start: 11-01-2021 Postop follow up vis it related to original px Tai Olexa [facility] Start: 10-17-2021 End: 10-17-2021 ambulatory Tai Olexa Other [facility] Other Start: 10-17-2021 Telephone encounter Tai Olexa [facility] Start: 09-21-2021 End: 09-21-2021 ambulatory Tai Olexa Other [facility] Other Start: 09-21-2021 Telephone encounter Tai Olexa [facility] Start: 08-18-2021 Encounter for other preprocedural examination Tai Olexa [facility] Start: 08-18-2021 Office outpatient ne w 45 minutes Tai Olexa [facility] Start: 07-10-2021 End: 07-10-2021 Emergency department patient visit Jacqueline Robles [facility] Adult [facility] 04 Start: 03-25-2019 Patient encounter status Asha Crane MD Work Phone: [facility] Start: 12-19-2018 Encounter for other preprocedural examination [facility] Start: 12-19-2018 Patient encounter procedure [facility] Procedures Date Procedure Procedure Detail [...] Activity Detail Author Start: 12-15-2024 Urine culture [facility] Start: 12-15-2024 Bacteria identified in Urine by Culture Urine Culture [facility] Immunizations Immunization Date Immunization Notes Care Provider Fa chip 02-04-2023 tetanus toxoid, reduced diphtheria toxoid, and acellular pertussis vaccine, adsorbed Kaitlin Lani Other [facility] 07-10-2021 tetanus toxoid, reduced diphtheria toxoid, and acellular pertussis vaccine, adsorbed Pcp Unknown [facility] 05-21-2021 SARS-CoV-2 (COVID-19 ) mRNA-1273 vaccine David JIN [facility] 04-19-2021 SARS-CoV-2 (COVID-19 ) mRNA-1273 vaccine David JIN [facility] NEGATED: Highlighted row has not occurred!02-14-2023 influenza virus vaccine, unspecified formulation David JIN [facility] [place] Payers Date Payer Category Payer Self-pay 1965 Unknown [id number] .16.84 [id number] 1965 Unknown [id number] .16.84 [id number] 1965 Unknown [id number] .16.84 [id number] 1965 Unknown [id number] 2.16.84 [id number] 1965 Unknown [id number] 1965 Unknown [id number] 1965 Unknown [id number] 1965 Unknown [id number] 1960 Medicaid [id number] 2. [id number] 1960 Unknown [id number] 2.1 [id number] Unknown [employer] Unknown [id number] Unknown [id number] Social History Date Type Detail Facility [facility] Tobacco smoking consumption unknown [facility] Sex Assigned At [facility] Start: 02-14-2023 End: 11-26-2024 Tobacco smoking status Ex-smoker (finding) [facility] Tobacco smoking status Never [facility] Start: 11-26-2024 End: 12-17-2024 Sex Female (finding) [facility] Start: 1965 Sex Assigned At Female F [facility] Functional Status Date Assessment Result Facility 02-14-2023 Functional Status N/A [facility] [place] Clinical Notes 08-18-2021 to 12-23-2024 Note Date & Type Note Facility 12-23-2024 Note [facility] Note Chief Complaint: Patient here for 1 year follow up CAD, hypertension, and diastolic heart failure. Echo was not completed since last year because it was denied. She was seen in [facility] a few weeks ago for cold [...] ejection fraction Ess (more content not included)... [facility] 11-26-2024 Evaluation note Diagnosis Onset Date Resolution Viral URI with cough acute Febr ua2024 9:13am Contact with or suspected exposure to severe acute respiratory syndrome noneactive November 9:13am Sore throat noneactive November 26, 2024 9:13am [facility] Work Phone: [phone] 449-[facility]2703-27-[facility] Chief Complaint: Patient [...] beta-denzel and an angiotensin-c (more content not included)...[facility] 02-15-2023 NoteChief Complaint consultation for anemia [...] more than 30 d (more content not included)...[facility]Result Comment: Electronically Signed By: ANNABEL BERRY, David Joyce\Date and Time Signed: 02/15/23 16:26 [id number] Evaluation note* Encounter Date Diagnosis Assessment Notes [...] no improvement in 2 to 3 days [facility] Other 03-28-2023 Evaluation note* Encounter Date Diagnosis [...] treatment plan. Patient left in stable condition. [facility] Other 11-14-2022 Evaluation note* Encounter Date Diagnosis [...] no improvement in 2 to 3 days. [facility] Other 11-06-2022 Evaluation note* Encounter Date Diagnosis [...] and rest, Tylenol/Motrin as directed, rx of [place] and Flonase, cool mist humidifier, throat lozenges. [...] condition Aug, Sore throat (ICD-10 - J02.9) [facility] Other 01-11-2022 Evaluation note* Encounter Date Diagnosis [...] remova l of sutures (ICD-10 - Z48.02) [facility] Other 12-27-2021 Evaluation note* Encounter Date Diagnosis Assessment Notes Treatment Notes Treatment Clinical Notes Sep, Other specified postprocedural states (ICD-10 - Z98.890) [facility] Other 10-28-2021 Evaluation note* Encounter Date Diagnosis [...] outcome. Jul, Pre-op exam (ICD-10 - Z01.818) [facility] Other Evaluation + Plan note No data available for this section [facility] Evaluation noteNo InformationNortPassionTag Other Evaluation note* Diagnosis Onset Date Resolution Status Admit Date Contact with or suspected exposure to severe acute respiratory syndrome noneactive November 9:13am Sore throat noneactive November 26, 2024 9:13am [facility] Work Phone: [facility] general Narrative - Reported* Type Description Date Medical History Hypertension Medical History hypercholesterolemia Medical History urinary frequency Medical History acid reflux Medical History Arthritis Medical History pre diabetic Surgical History knee surgery 2010 Surgical History tubal ligation Surgical History ankle surgery Hospitalization History see above surgical [employer] Other [facility] Narrative - Reported* Type Description Date Medical History Hypertension Medical History hypercholesterolemia Medical History urinary frequency Medical History acid reflux Medical History Arthritis Medical History pre diabetic Surgical History knee surgery 2010 Surgical History tubal ligation Surgical History ankle surgery Surgical History gastric bypass Hospitalization History see above surgical [employer] Other History general Narrative - Reported* Type Description Date Medical History Hypertension Medical History hypercholesterolemia Medical History urinary frequency Medical History acid reflux Medical History Arthritis Medical History pre diabetic Surgical History knee surgery 2011 Surgical History tubal ligation Surgical History ankle surgery Surgical History gastric bypass Surgical History right elbow Surgical History carpal tunnel Hospitalization History see above surgical histo ry [facility] Other Hospital Discharge instructions No data available for this section [facility] [place] Progress note No data available for this [...] section and content) DATE CREATED AUTHOR 12/20/2018 [facility] DATE CREATED AUTHOR AUTHOR'S ORGANIZ ATION 02/04/2020 [facility] DATE CREATED AUTHOR AUTHOR'S ORGANIZ ATION 08/27/2021 [facility] DATE CREATED AUTHOR AUTHOR'S ORGANIZ ATION 08/29/2021 [facility] DATE CREATED AUTHOR AUTHOR'S ORGANIZ ATION 03/07/2023 [facility] DATE CREATED AUTHOR AUTHOR'S ORGANIZ ATION 04/26/2023 [facility] DATE CREATED AUTHOR AUTHOR'S ORGANIZ ATION 12/22/2024 [facility] DATE CREATED AUTHOR AUTHOR'S ORGANIZ ATION 12/24/2024 [facility] <item> Privacy Markings (unrecogniz ed section [...] BE BASED ON THE PRIMARY CLINICAL RECORDS. [facility]. provides no warranty or guarantee of the accuracy or completeness of information in this document.
[2025-06-15 10:44] LABS: Hematocrit 34.5 % (36.0-48.0); Hemoglobin 11.6 g/dL (12.0-16.0); Immature Granulocytes Abs Auto 0.01 10^3/uL (0.00-0.03); Immature Granulocytes Pct Auto 0.2 % (0.0-0.5); Lymphocytes Absolute Auto 1.6 10^3/uL (1.2-3.8); Mean Corpuscular HGB Conc 33.6 g/dL (29.9-35.2); Mean Corpuscular Hemoglobin 33.0 pg (26.7-34.0); Mean Corpuscular Volume 98.3 fL (81.0-99.0); Platelet Count 223 10^3/uL (150-450); Red Blood Count 3.51 10^6/uL (4.20-5.40); White Blood Count 4.8 10^3/uL (4.0-11.0)
[2025-06-15 11:09] LABS: Alanine Aminotransferase 49 U/L (14-59); Albumin Globulin Ratio 1.1; Albumin Level 3.7 g/dL (3.4-5.0); Alkaline Phosphatase 45 U/L (46-116); Anion Gap 9.9; Aspartate Amino Transferase 38 U/L (15-37); Blood Urea Nitrogen 27.0 mg/dL (7.0-18.0); Calcium 8.8 mg/dL (8.5-10.1); Carbon Dioxide 28.8 mmol/L (21.0-32.0); Chloride 108 mmol/L (98-107); Cholesterol 138 mg/dL (<=200); Estimated GFR (African America >60 (>=60 mL/min/1.73m^2); Estimated GFR (Non-African Ame >60 (>=60 mL/min/1.73m^2); Free T3 2.63 pg/mL (2.18-3.98); Globulin 3.4 g/dL; Glucose 77 mg/dL (74-106); HDL Cholesterol 76 mg/dL (40-60); Potassium 4.7 mmol/L (3.5-5.1); Sodium 142 mmol/L (136-145); Thyroid Stimulating Hormone 1.603 uIU/mL (0.358-3.740); Total Protein 7.1 g/dL (6.4-8.2); Triglycerides 124 mg/dL (<=150); VLDL CHOLESTEROL 24.8 mg/dL
== END 2025-06-15 09:53 | disposition home or self-care (01) ==
LOC: LAB 09:54
PROVIDERS: PCP Family Medicine; Visit Provider Family Medicine
DX: Z00.00 Encounter for general adult medical examination without abnormal findings (principal)
CPT/HCPCS: 36415; 80053; 80061; 83036; 83525; 84436; 84443; 84481; 85025

== ENCOUNTER 2025-07-08 15:10 | Outpatient (OUT) | payer OTHER, SELFPAY ==
--- OUTSIDE RECORDS SUMMARY | 2024-07-03 11:15 | XMS_ITS ---
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 PROPHY. * Medical History: Objective: * Vitals: Assessment: Plan: * Treatment: * Images: * Electronic signature of Mónica Peacock on 07/08/2025 at 03:15 PM EDT Sign off status: Pending * Provider: Jose Francisco Rachel Date: 0 07/03/2024 Generated for Tiffanie gutiérrez/Won/eTransmitting on: 0 07/08/2025 03:15 PM EDT
--- OUTSIDE RECORDS SUMMARY | 2024-10-23 11:45 | XMS_ITS ---
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 FILLING. * Medical History: Objective: * Vitals: Assessment: Plan: * Treatment: * Images: * Electronic signature of Juan Holder DDS on 07/08/2025 at 03:16 PM EDT Sign off status: Pending * Provider: Fidencio Holder DDS Date: 10/23/2024 Generated for Tiffanie gutiérrez/Won/Grayson on: 0 07/08/2025 03:16 PM EDT
--- OUTSIDE RECORDS SUMMARY | 2024-10-30 10:45 | XMS_ITS ---
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 CROWN PREP. * Medical History: Objective: * Vitals: Assessment: Plan: * Treatment: * Images: * Electronic signature of Juan Holder DDS on 07/08/2025 at 03:15 PM EDT Sign off status: Pending * Provider: Fidencio Holder DDS Date: 0 10/30/2024 Generated for Tiffanie gutiérrez/Won/Grayson on: 0 07/08/2025 03:15 PM EDT
--- OUTSIDE RECORDS SUMMARY | 2024-12-04 11:00 | XMS_ITS ---
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 CROWN SEAT. * Medical History: Objective: * Vitals: Assessment: Plan: * Treatment: * Images: * Electronic signature of Juan Holder DDS on 07/08/2025 at 03:16 PM EDT Sign off status: Pending * Provider: Fidencio Holder DDS Date: 12/04/2024 Generated for Tiffanie gutiérrez/Won/Grayson on: 0 07/08/2025 03:16 PM EDT
--- OUTSIDE RECORDS SUMMARY | 2025-07-08 15:15 | XMS_ITS | Clinical Summary ---
Author Organization [facility] Address [address] [place] [address] Phone Care Team Providers Care Neonatal Icu Coordinator Name Role Phone Unavailable Primary Care Provider Unavailabl e Social History Tobacco Use Types Packs/Day Years Used Date Smoking Tobacco: Never Assessed Comments Unknown Sex and Gender Information Value Date Recorded Sex Assigned at Not on file Legal Sex Female 9:46 PM EST Gender Identity Not on file Sexual Orientation Not on file Plan of Treatment Not on file
--- OUTSIDE RECORDS SUMMARY | 2025-07-08 15:16 | XMS_ITS | Clinical Summary ---
Author Organization [facility] Address [address] [place] [address] Care Team Providers Care Director Pharmacology Name Role Phone Reginaldo Crane MD Primary Care Provider [phone] Allergies Active Allergy Reactions Criticality Noted Date [...] DAILY DIRECTED 90 tablet 1 5 Active docusate sodium (Colace) 100 mg capsule Take 2 capsules by mouth in the morning. Active acetaminophen (Tylenol) 500 mg tablet Take 2 tablets by mouth every 6 (six) hours during the day. 5 Active isosorbide mononitrate ER (Imdur) 30 mg 24 hr tabletIndications :Coronary artery disease involving tangirnaq coronary artery of tangirnaq heart without angina pectoris Take 1 tablet (30 mg) by mouth once daily as directed. Do not crush or chew. 90 tablet 3 5 06/15/20 26 Active Active Problems Problem Noted Date Diagnosed Date Iron deficiency anemia 12/23/2024 Cervical stenosis of spine 01/16/202401/15 Chronic venous insufficiency 01/16/2024 Diabetes 01/16/2024 01/16/2024 Eczema 01/16/2024 01/16/2024 GERD (gastroesophageal reflux disease) 4 01/16/2024 Morbid obesity 01/16/2024 01/16/2024 Vitamin D [...] Assessment & Plan (01/19/2023 4:00 PM EDT): [facility] Continue GDMT- Lasix 20 mg daily- [...] in Social History. History of pneumonia 02/07/2018 Encounters Date Type Department Care Team Description 06/15/2025 3:20 PM EDT Office Visit [address] [address] Aly Donato CNP Chest pain, unspecified type (Primary Dx); Coronary artery disease involving tangirnaq coronary artery of tangirnaq heart without angina pectoris; Chronic heart failure with preserved ejection fraction (CMS/HCC); Benign hypertensive heart disease with heart failure (CMS/HCC); Iron deficiency anemia, unspecified iron deficiency anemia type; Mixed hyperlipidemia; ETOH abuse 06/15/2025 Orders Only [address] [address] Aly Donato CNP from Last 3 Months Immunizations Immunization Administration Dates Next Due Moderna SARS-CoV-2 Vaccination 05/21/2021,2020 Tdap 07/10/2021,04/14/2019 Family History Relation Name Status Comments Father Mother Social History Tobacco Use Types Packs/Day Years Used Date Smoking Tobacco: Former Cigarettes 1 15 2 - 2017 Passive Smoke Exposure: Past Smokeless Tobacco: Never Tobacco Cessation:Counseling Given: Not Answered Alcohol Use Standard Drinks/Week Comments Yes 15 (1 standard drink = 0.6 oz pu re alcohol) per week [employer] [facility] Answer Date Rec [...] Sign Reading Time Taken Comments Blood Pressure 112/69 06/15/2025 3:23 PM EDT Pulse 71 06/15/2025 3:23 PM EDT Temperature - - Respiratory Rate - - Oxygen Saturation 96% 06/15/2025 3:23 PM EDT Inhaled Oxygen Concentration - - Weight 91.2 kg (201 lb) 06/15/2025 3:23 PM EDT Height 167.6 cm (5' 6 ) 06/15/2025 3:23 PM EDT Body Mass Index 32.44 06/15/2025 3:23 PM EDT Plan of Treatment Upcoming Encounters Date Type Department Care Team (Late st Contact Info) Description 09/10/2025 3:20 PM EST Office Visit [facility] [address] [place] [address] Aly Donato, DEBT MANAGEMENT COUNSELOR [address] [place] [address] Health Maintenance Due Date Last Done Comments [...] (1 of 2) 2014 COVID-19 Vaccine ( - season) 2025 05/21/2021, 05/21/2021, 04/19/2021, Additional history exists Influenza [...] topic Insurance [employer] [place] [employer] Care Teams Director Pharmacology Relationship Specialty Start Date End Date Reginaldo Crane MD [address] [facility] [address] [address] PCP - General 01/17/23
--- OUTSIDE RECORDS SUMMARY | 2025-07-08 15:16 | XMS_ITS | Patient Health Record ---
Author Organization [email or web address] Address [address] [place] [address] Care Team Providers Care Restaurant Front Manager Name Role Phone Reilly Holder Primary Care Provider Reason For Referral No Information Plan Of Treatment No Information Insurance Providers Payer Name Payer Address Payer Phone Subscriber Number Group Number Insured Name Patient Relationship to Insured Coverage Start Date Coverage End Date Dental [employer] [facility] [address] [place] [address] [id number] KAMILA LUJAN Self - patient is the insured 4 Dental W[employer] [facility] Care[employer] [address] [place] [address] [id number] KAMILA LUJAN Self - patient is the insured 4
--- OUTSIDE RECORDS SUMMARY | 2025-07-08 15:16 | XMS_ITS | Clinical Summary ---
Author Organization [facility] Address [address] [place] [address] Care Team Providers Care Embryology Teacher Name Role Phone Unavailable Primary Care Provider [...]
--- OUTSIDE RECORDS SUMMARY | 2025-07-08 15:16 | XMS_ITS | Patient Health Record ---
Author Organization [facility] in [place] Address [address] [place] [address] Care Team Providers Care Size Tester Name Role Phone RoyceDavid Primary Care Provider Allergies No Known Allergies Results Component Value Reference Range Notes UA RANDOM W or MICROSCOPIC Reviewed date:10/16/2024 06:01:56 PM Interpretation: Performing Lab: Notes/Report: [facility] , Color Urine LT. YELLOW YELLOW Clarity Urine CLEAR CLEAR Specific [place] Urine 1.020 1.005-1.025 pH Urine 6.0 5.0-9.0 [...] Performing Lab: see note ML - [facility] LB Box Test Reviewed date:10/18/2024 08:39:59 PM Interpretation: Performing Lab: Notes/Report: URINE CULTURE [facility] , BOX Test Sent Out URINE BOX Test Reference [facility] B[facility] Test Date Sent 10/16/24 BOX Test Result SEE SCANNED REPORT Performing Lab: see note ML - [facility] LB CBC AUTO DIFF Reviewed date:11/30/2024 11:17:27 AM Interpretation: Performing Lab: Notes/Report: [facility] , White Blood Count 3.3 4.0-11.0 10 [...] 3/uL Performing Lab: see note ML - [facility] LB PROF 14(COMP METB) Reviewed date:11/30/2024 11:17:27 AM Interpretation: Performing Lab: Notes/Report: [facility] , Sodium 139 136-145 mmol/L Potassium 4.8 [...] Globulin Ratio 0.9 Performing Lab: see note - [facility] Troponin I High Sensitivity Reviewed date:11/30/2024 11:17:27 AM Interpretation: Performing Lab: Notes/Report: [facility] , Troponin I High Sensitivity 8.5 4.0-51.3 pg/mL CUT-OFF POINTS HAVE BEEN ESTABLISHED BASED ON THE FOURTH UNIVERSAL DEFINITION OF MYOCARDIAL INFARCTION. THE UPPER REFERENCE LIMIT (URL) OF TROPONIN, DEFINED THE 99TH PERCENTILE OF cTnI DISTRIBUTION IN A REFERENCE POPULATION, HAS BEEN CONFIRMED THE DECISION THRESHOLD FOR [place] DIAGNOSIS. 99TH PERCENTILE = 51.4 PG/ML NOTE: HIGH-SENSITIVITY TROPONIN ASSAY IS NOT INTENDED TO BE USED IN ISOLATION BUT SHOULD BE INTERPRETED IN CONJUNCTION WITH OTHER DIAGNOSTIC AND CLINICAL INFORMATION. 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 Signed By: 11/30/24 1107 DD/ 1412 TD/TT: [employer]: XR chest 1V Reviewed date:11/30/2024 11:17:27 AM Interpretation: Performing Lab: Notes/Report: Source Facility: [place] [address] XRay Report Signed Patient: KAMILA GRIGGS MR#: [id number] : 1965 Acct:[id number] Age/Sex: 59 / F ADM Date: 11/29/24 Loc: ER Attending Dr: Ordering Physician: Courtney Pastor Date of Service: 11/29/24 Procedure(s): XR chest 1V Accession Number(s): [id number] cc: Winston Crane M.D.; Courtney Pastor [place] [address] Patient Name: KAMILA GRIGGS MRN: [id number] date: 1965 Sex: F Assigned Patient Location: ER Current Patient Location: Accession/Order Number: [id number] Exam Date: 11/29/2024 14:32 Report Date: 11/29/2024 [...] By: Timmy Trinidad M.D. Signed By: 11/29/24 1620 DD/ 1617 TD/TT: [employer]: DUNCAN RANDOM W or MICROSCOPIC Reviewed date:12/15/2024 08:20:44 PM Interpretation: Performing Lab: Notes/Report: [facility] , Color Urine LT. YELLOW YELLOW Clarity Urine CLOUDY CLEAR Specific [place] Urine 1.025 1.005-1.025 pH Urine 5.5 5.0-9.0 [...] Performing Lab: see note ML - [facility] Urine Culture - [facility] Reviewed date:12/18/2024 07:50:22 PM Interpretation: Performing Lab: Notes/Report: [facility] , Urine Culture - [facility] See Below For Report Urine Culture - [facility] SEE See Scanned Report^See Scanned Report Performing Lab: see note ML - [facility] CA echo doppler complete Reviewed date:01/18/2025 04:04:04 PM Interpretation: Performing Lab: Notes/Report: Source Facility: [facility] [place] [address] [place] [address] Cardiology Report Signed Patient: KAMILA GRIGGS MR#: [id number] : 1965 Acct:[id number] Age/Sex: 59 / F ADM Date: 01/15/25 Loc: CARD Attending Dr: Patrice Ochoa M.D. Ordering Physician: Patrice Ochoa M.D. Date of Service: 01/15/25 Procedure(s): CA echo doppler complete Accession Number(s): [id number] cc: Patrice Ochoa M.D.; Winston Crane M.D. Patient Name: KAMILA GRIGGS MR#: [id number] : 1965 Exam Date: 01/15/2025 Ordering Doctor: DR PTARICE OCHOA M.D. ECHOCARDIOGRAM REPORT PROCEDURE: CA ECHO [...] JEFFERSON Signed By: 01/16/251711 DD/ 09 TD/TT: [employer]: CBC AUTO DIFF Reviewed date:05/26/2025 02:45:21 PM Interpretation: Performing Lab: Notes/Report: [facility] , White Blood Count 5.4 4.0-11.0 10 3/uL Red Blood Count 3.60 4.20-5.40 10 6/uL Hemoglobin 11.9 12.0-16.0 g/dL Hematocrit 35.4 36.0-48.0 % Mean Corpuscular Volume 98.3 81.0-99.0 fL Mean Corpuscular Hemoglobin 33.1 26.7-34.0 pg Mean Corpuscular HGB Conc 33.6 29.9-35.2 g/dL Red Cell Distribution Width 12.3 11.0-15.0 % Platelet Count 234 150-450 10 3/uL Mean Platelet Volume 9.3 9.5-13.5 fL Neutrophils Percent Auto 62.5 43.0-75.0 % Lymphocytes Percent Auto 25.5 20.5-60.0 % Monocytes Percent Auto 9.3 1.7-12.0 % Eosinophils Percent Auto 1.9 0.9-7.0 % Basophils Percent Auto 0.6 0.2-2.0 % Immature Granulocytes Pct Auto 0.2 0.0-0.5 % Neutrophils Absolute Auto 3.4 1.4-6.5 10 3/uL Lymphocytes Absolute Auto 1.4 1.2-3.8 10 3/uL Monocytes Absolute Auto 0.5 0.3-0.8 10 3/uL Eosinophils Absolute Auto 0.1 0.0-0.7 10 3/uL Basophils Absolute Auto 0.0 0.0-0.1 10 3/uL Immature Granulocytes Abs Auto 0.01 0.00-0.03 10 3/uL Performing Lab: see note ML - [facility] LB MAGNESIUM Reviewed date:05/26/2025 02:45:21 PM Interpretation: Performing Lab: Notes/Report: [facility] , Magnesium 2.1 1.8-2.4 mg/dL Performing Lab: see note ML - [facility] LB PROF 14(COMP METB) Reviewed date:05/26/2025 02:45:21 PM Interpretation: Performing Lab: Notes/Report: [facility] , Sodium 142 136-145 mmol/L Potassium 4.4 3.5-5.1 mmol/L Chloride 107 98-107 mmol/L Carbon Dioxide 27.0 21.0-32.0 mmol/L Anion Gap 12.4 Glucose 108 74-106 mg/dL Blood Urea Nitrogen 39.0 7.0-18.0 mg/dL Creatinine 1.05 0.55-1.02 mg/dL Estimated GFR ( Stacy >60 >=60 mL/min/1.73m 2 Estimated GFR (Non- Karime 53 >=60 mL/min/1.73m 2 BUN Creatinine Ratio 37.1 Calcium 9.0 8.5-10.1 mg/dL Bilirubin Total 0.5 0.2-1.0 mg/dL Aspartate Amino Transferase 35 15-37 U/L Alanine Aminotransferase 45 14-59 U/L Alkaline Phosphatase 49 46-116 U/L Total Protein 7.2 6.4-8.2 g/dL Albumin Level 3.8 3.4-5.0 g/dL Globulin 3.4 Albumin Globulin Ratio 1.1 Performing Lab: see note - [facility] Troponin I High Sensitivity Reviewed date:05/26/2025 02:45:21 PM Interpretation: Performing Lab: Notes/Report: [facility] , Troponin I High Sensitivity 5.2 4.0-51.3 pg/mL CUT-OFF POINTS HAVE BEEN ESTABLISHED BASED ON THE FOURTH UNIVERSAL DEFINITION OF MYOCARDIAL INFARCTION. THE UPPER REFERENCE LIMIT (URL) OF TROPONIN, DEFINED THE 99TH PERCENTILE OF cTnI DISTRIBUTION IN A REFERENCE POPULATION, HAS BEEN CONFIRMED THE DECISION THRESHOLD FOR [place] DIAGNOSIS. 99TH PERCENTILE = 51.4 PG/ML NOTE: HIGH-SENSITIVITY TROPONIN ASSAY IS NOT INTENDED TO BE USED IN ISOLATION BUT SHOULD BE INTERPRETED IN CONJUNCTION WITH OTHER DIAGNOSTIC AND CLINICAL INFORMATION. Performing Lab: see note - [facility] LB ECG 12 lead Reviewed date:05/27/2025 12:33:39 PM Interpretation: Performing Lab: Notes/Report: Source Facility: [facility] [place] [address] [place] [address] Electrocardiograph Report Signed Patient: KAMILA GRIGGS MR#: [id number] : 1965 Acct:[id number] Age/Sex: 60 / F ADM Date: 05/26/25 Loc: ER Attending Dr: Ordering Physician: Courtney Pastor Date of Service: 05/26/25 Procedure(s): ECG 12 lead Accession Number(s): [id number] cc: [facility] Test Date: 2025-05-26 Pat Name: KAMILA GRIGGS Department: Room: - 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 Measurements Intervals [place] Rate: 78 P: 70 FL: 162 QRS: 55 QRSD: 76 T: 56 QT: 354 QTc: 388 Interpretive Statements 1100 Sinus rhythm 9110 normal ECG Compared to ECG 11/29/2024 14:12:01 No significant changes Electronically Signed On 05-27-2025 6:53:11 EDT by VERA JEFFERSON M.D. Dictated By: VERA JEFFERSON Signed By: 05/27/25 0653 DD/ 1229 TD/TT: [employer]: XR chest 1V Reviewed date:05/26/2025 02:45:21 PM Interpretation: Performing Lab: Notes/Report: Source Facility: [place] [address] XRay Report Signed Patient: KAMILA GRIGGS MR#: [id number] : 1965 Acct:[id number] Age/Sex: 60 / F ADM Date: 05/26/25 Loc: ER Attending Dr: Ordering Physician: Courtney Pastor Date of Service: 05/26/25 Procedure(s): XR chest 1V Accession Number(s): [id number] cc: Winston Crane M.D.; Courtney Pastor [place] [address] Patient Name: KAMILA GRIGGS MRN: [id number] date: 1965 Sex: F Assigned Patient Location: ER Current Patient Location: ER Accession/Order Number: [id number] Exam Date: 05/26/2025 13:28 Report Date: 05/26/2025 13:28 At the request of: COURTNEY PASTOR MD Procedure: XR chest 1V Single view chest: CLINICAL HISTORY: Chest Pain COMPARISON: Chest 11/29/2024 FINDINGS: The heart is normal in size. The lungs are clear. The pulmonary vasculature is normal. Mediastinum and hilar regions are unremarkable. No pleural effusions are seen. Visualized bones are intact. XR/XR chest 1V IMPRESSION: NEGATIVE CHEST. Impression dictated by: Chris Tuttle Jr., D.O. 05/26/2025 1:28 PM Dictation Location: [place] [address] Electronically authenticated by: [id number] Y Date: 05/26/2025 13:28 Dictated By: Chris Tuttle M.D. Signed By: 05/26/25 1331 DD/ 1328 TD/TT: [employer]: Troponin I High Sensitivity Reviewed date:05/26/2025 02:45:21 PM Interpretation: Performing Lab: Notes/Report: [facility] , Troponin I High Sensitivity 5.0 4.0-51.3 pg/mL CUT-OFF POINTS HAVE BEEN ESTABLISHED BASED ON THE FOURTH UNIVERSAL DEFINITION OF MYOCARDIAL INFARCTION. THE UPPER REFERENCE LIMIT (URL) OF TROPONIN, DEFINED THE 99TH PERCENTILE OF cTnI DISTRIBUTION IN A REFERENCE POPULATION, HAS BEEN CONFIRMED THE DECISION THRESHOLD FOR [place] DIAGNOSIS. 99TH PERCENTILE = 51.4 PG/ML NOTE: HIGH-SENSITIVITY TROPONIN ASSAY IS NOT INTENDED TO BE USED IN ISOLATION BUT SHOULD BE INTERPRETED IN CONJUNCTION WITH OTHER DIAGNOSTIC AND CLINICAL INFORMATION. Performing Lab: see note ML - [facility] FREE T3 Reviewed date:06/15/2025 12:25:33 PM Interpretation: Performing Lab: Notes/Report: [facility] , Free T3 2.63 2.18-3.98 pg/mL Performing Lab: see note ML - [facility] GLYCOHEMOGLOBIN A1C Reviewed date:06/15/2025 03:57:49 PM Interpretation: Performing Lab: Notes/Report: [facility] , Glycohemoglobin A1C 4.7 4.5-6.2 % ADA RECOMMENDED LIMIT 4.0 - 6.0 ADA THERAPEUTIC TARGET < 7.0 ACTION SUGGESTED > 7.0 Estimated Average Glucose 88 Performing Lab: see note ML - [facility] INSULIN Reviewed date:06/16/2025 08:02:34 PM Interpretation: Performing Lab: Notes/Report: [facility] , Insulin 7.2 2.6-24.9 uIU/mL Performed at: - [facility] [address] [id number] Patent Solicitor: Shawn Franco PhD, Phone: [phone] Performing Lab: see note - [facility] LB LIPID PROFILE Reviewed date:06/15/2025 12:25:33 PM Interpretation: Performing Lab: Notes/Report: [facility] , Triglycerides 124 <=150 mg/dL Cholesterol 138 <=200 mg/dL HDL Cholesterol 76 40-60 mg/dL > or =60 mg/dl - LOW CARDIOVASCULAR RISK <40 mg/dl - HIGH CARDIOVASCULAR RISK LDL Cholesterol Calculated 38.0 <100 mg/dl OPTIMAL 100-129 mg/dl NEAR OR ABOVE OPTIMAL 130-159 mg/dl BORDERLINE HIGH 160-189 mg/dl HIGH >190 mg/dl VERY HIGH VLDL CHOLESTEROL 24.8 Chol HDL Ratio 1.8 3.3 - 4.4 LOW RISK 4.4 - 7.1 AVERAGE RISK 7.1 - 11.0 MODERATE RISK >11.0 HIGH RISK Performing Lab: see note - [facility] LB PROF 14(COMP METB) Reviewed date:06/15/2025 12:25:33 PM Interpretation: Performing Lab: Notes/Report: [facility] , Sodium 142 136-145 mmol/L Potassium 4.7 3.5-5.1 mmol/L Chloride 108 98-107 mmol/L Carbon Dioxide 28.8 21.0-32.0 mmol/L Anion Gap 9.9 Glucose 77 74-106 mg/dL Blood Urea Nitrogen 27.0 7.0-18.0 mg/dL Creatinine 0.92 0.55-1.02 mg/dL Estimated GFR ( Stacy >60 >=60 mL/min/1.73m 2 Estimated GFR (Non- Karime >60 >=60 mL/min/1.73m 2 BUN Creatinine Ratio 29.3 Calcium 8.8 8.5-10.1 mg/dL Bilirubin Total 0.7 0.2-1.0 mg/dL Aspartate Amino Transferase 38 15-37 U/L Alanine Aminotransferase 49 14-59 U/L Alkaline Phosphatase 45 46-116 U/L Total Protein 7.1 6.4-8.2 g/dL Albumin Level 3.7 3.4-5.0 g/dL Globulin 3.4 Albumin Globulin Ratio 1.1 Performing Lab: see note ML - [facility] LB T4 Reviewed date:06/15/2025 12:25:33 PM Interpretation: Performing Lab: Notes/Report: [facility] , T4 Thyroxine 5.50 4.80-13.90 ug/dL Performing Lab: see note - [facility] LB TSH Reviewed date:06/15/2025 12:25:33 PM Interpretation: Performing Lab: Notes/Report: [facility] , Thyroid Stimulating Hormone 1.603 0.358-3.740 uIU/mL Performing Lab: see note ML - [facility] LB CBC AUTO DIFF Reviewed date:06/15/2025 12:25:33 PM Interpretation: Performing Lab: Notes/Report: [facility] , White Blood Count 4.8 4.0-11.0 10 3/uL Red Blood Count 3.51 4.20-5.40 10 6/uL Hemoglobin 11.6 12.0-16.0 g/dL Hematocrit 34.5 36.0-48.0 % Mean Corpuscular Volume 98.3 81.0-99.0 fL Mean Corpuscular Hemoglobin 33.0 26.7-34.0 pg Mean Corpuscular HGB Conc 33.6 29.9-35.2 g/dL Red Cell Distribution Width 12.3 11.0-15.0 % Platelet Count 223 150-450 10 3/uL Mean Platelet Volume 9.3 9.5-13.5 fL Neutrophils Percent Auto 55.8 43.0-75.0 % Lymphocytes Percent Auto 33.5 20.5-60.0 % Monocytes Percent Auto 8.0 1.7-12.0 % Eosinophils Percent Auto 1.7 0.9-7.0 % Basophils Percent Auto 0.8 0.2-2.0 % Immature Granulocytes Pct Auto 0.2 0.0-0.5 % Neutrophils Absolute Auto 2.7 1.4-6.5 10 3/uL Lymphocytes Absolute Auto 1.6 1.2-3.8 10 3/uL Monocytes Absolute Auto 0.4 0.3-0.8 10 3/uL Eosinophils Absolute Auto 0.1 0.0-0.7 10 3/uL Basophils Absolute Auto 0.0 0.0-0.1 10 3/uL Immature Granulocytes Abs Auto 0.01 0.00-0.03 10 3/uL Performing Lab: see note ML - [facility] Reason For Referral Diagnosis 1 CTS (carpal tunnel s yndrome) (G56.00) Referral Organization [facility] Referring Provider First Name David Referring Provider Last Name Royce Referring Provider Speciality Family [facility] thong Referred Provider [facility], Occupational era Referred Provider Specialty Occupational Therapy Referral Priority Routine Medications Medication SIG (Take, Route, Frequency, Duration) Notes Start Date End Date Status Celecoxib 200 MG TAKE 1 CAPSULE BY MO UTH EVERY DAY; Duration: 30 Active Ferrous Sulfate 325 (65 Fe) MG TAKE ONE TABLET BY MOUTH TWICE A DAY; Duration: 28 Active Lisinopril 20 MG TAKE 1 TABLET BY HENNA TH EVERY DAY; Duration: 90 days Active CVS Stool Softener 100 MG TAKE 1 CAPSULE BY MOUTH 1 - 2 TIMES A DAY; Duration: 90 days Active oxyBUTYnin Chloride 5 mg TAKE ONE TABLET BY MOUTH ONCE DAILY; Duration: 28 Active Acetaminophen Extra Strength 500 mg TAKE TWO TABLETS BY MOUTH THREE TIMES A DAY; Duration: 28 Active Ondansetron 4 MG 1 tablet on the tong ue and allow to dissolve Orally Q 6 hours PRN 12/17/2023 Active Colace 100 MG 2 tabs Orally Once a day; Duration: 30 days Active Semaglutide 2.268 mg/0.63 mL 2.268 mg/0.63 mL 0.63 mL Subcutaneous Once weekly; Duration: 30 days 04/13/2025 Active Carvedilol 12.5 MG TAKE 1 TABLET BY HENNA TH TWICE A DAY; Duration: 90 Active Lisinopril 40 mg TAKE ONE TABLET BY M OUTH ONCE DAILY; Duration: 28 Active Pantoprazole Sodium 40 mg TAKE ONE TABLE T BY MOUTH TWICE A DAY; Duration: 28 Active Aspirin Low Dose 81 mg TAKE ONE TABLET B Y MOUTH ONCE DAILY; Duration: 28 Active Immunizations Vaccine Route Administration Date [...] Problem Status W/U Status Risk Notes Problem Essential hypertension (38302878) Essential (primary) hypertension (I10) Active confirmed Problem Atherosclerotic heart disease of tetlin coronary artery without angina pectoris (327722765874138) 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) Active confirmed Problem Heart failure (08772585) Heart failure, unspecified (I50.9) Active confirmed Problem Anemia (245974769) Anemia (D64.9) Active confir med Problem Well adult (026456827) Well adult (Z00.00) Active confirmed Problem Lesion of ulnar nerve (433505070) Ulnar nerve compression, 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 [place] [place] [address] 01/23/2025 David Crane [facility] [address] [place] [address] 02/18/2025 David Crane [facility] [address] [place] [place] [address] 04/13/2025 David Crane CTS (carpal tunnel syndrome) G56.00 [facility] [address] [place] [place] [address] 05/21/2025 David Crane Dysuria R30.0 [facility] [address] [place] [place] [address] 05/26/2025 David Crane [facility] [address] [place] [address] 06/15/2025 David Hoy Anemia D64.9 [facility] [address] [place] [place] [address] 09/15/2024 David Crane [facility] [address] [place] [place] [address] 12/09/2024 David Crane [facility] [address] [place] [address] 12/15/2024 David Crane Unspecified symptoms and signs involving the genitourinary system R39.9 [facility] [address] [place] [address] 12/15/2024 David Crane [facility] [address] [place] [place] [address] 12/18/2024 David Crane [facility] [address] [place] [address] 12/21/2024 David Crane [facility] [address] [place] [place] [address] 09/02/2024 David Crane [facility] [address] [place] [place] [address] 09/12/2024 David Hoy Unspecified symptoms and signs involving the genitourinary system R39.9 [facility] [address] [place] [address] 12/01/2024 David Hoy Dysuria R30.0 and UT I (urinary tract infection), uncomplicated N39.0 [facility] [address] [place] [address] 11/12/2024 David Hoy CTS (carpal tunnel syndrome) G56.00 ; Ulnar nerve compression, right G56.21 and Well adult Z00.00 Assessments Encounter Date Diagnosis (ICD Code) Assessment Notes Treatment Notes Treatment Clinical Notes Section Notes 11/12/2024 CTS (carpal tunnel syndrome) (ICD-10 - G56.00) 11/12/2024 Ulnar nerve compression, right (ICD-10 - G56.21) 09/12/2024 Unspecified symptoms and signs involving the genitourinary system (ICD-10 - R39.9) 12/15/2024 Unspecified symptoms and signs involving the genitourinary system (ICD-10 - R39.9) 04/13/2025 CTS (carpal tunnel syndrome) (ICD-10 - G56.00) 05/21/2025 Dysuria (ICD-10 - R30.0) 06/15/2025 Anemia (ICD-10 - D64.9) 12/01/2024 Dysuria (ICD-10 - R30.0) 12/01/2024 UTI (urinary tract infection), uncomplicated (ICD-10 - N39.0) 11/12/2024 Well adult (ICD-10 - Z00.00) Plan Of Treatment Pending Test Test Name Order Date CMP (COMPLETE METABOLIC PANEL) UA (URINALYSIS, COMPLETE) 09/12/2024 UA (URINALYSIS, COMPLETE) 12/15/2024 HEMOGLOBIN A1C (GLYCO) 11/12/2024 HEMOGLOBIN A1C (GLYCO) 10/11/2023 IRON, TOTAL 10/11/2023 LIPID PANEL (CHOL/TRIG/HDL/LDL) 10/11/20 LIPID PANEL (CHOL/TRIG/HDL/LDL) 11/12/19 25 CBC WITH DIFF 11/12/2024 CBC WITH DIFF 10/11/2023 MAMM Mammograms CAD 10/11/2023 Urine Culture 12/15/2024 Urine Culture 09/12/2024 Insulin Level 10/11/2023 Insulin Level 11/12/2024 CBC W/AUTO DIFF 06/15/2025 CBC AUTO DIFF 12/18/2023 CBC AUTO DIFF 12/06/2023 THYROID PANEL (T4/TSH/FREE T3) THYROID PANEL (T4/TSH/FREE T3) 3 MM screening mammo BI 11/12/2024 CMP (COMP MET MARTINEZ) w/eGFR CKD-EPI 2024 Insurance Providers Payer Name Payer Address Payer Phone Subscriber Number Group Number Insured Name Patient Relationship to Insured Coverage Start Date Coverage End Date [employer] [place] [employer] [address] [place] [address] [id number] Kamila Griggs Self - patient is the insured Medical (General) History Medical History History ICD Code Hypertension I10 Surgical History Surgery Date(Month/Year) right ankle gastric sleeve CTS right wrist/ eblow left knee tubal ligamet EGD Dr. Herrera 04/11/23 Hospitalization History Reason Date(Month/Year) see above
--- OUTSIDE RECORDS SUMMARY | 2025-07-08 15:16 | XMS_ITS | Encounter Summary ---
Author Organization [facility] Address [address] [place] [address] Care Team Providers Care Dental Technology Advisor Name Role Phone Reginaldo Crane MD Primary Care Provider [phone] Octavio Celestin MD Unavailable [phone] Source Comments In the event this information is protected by the Federal Confidentiality of Alcohol and Drug AbusePatient Records regulations: The Federal rules restrict any use of the information to criminally investigate or prosecute any alcohol or drug abuse patient.[facility] Reason for Visit * Reason Comments HSAT Check In (Adult) Encounter Details Date Type Department Care Team (Late st Contact Info) Description 12/25/2018 Abstract Neurology [address] [place] [address] Main, Sleep Center [address] [place] [phone] HSAT Check In (Adult) Social History Tobacco [...] 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
--- OUTSIDE RECORDS SUMMARY | 2025-07-08 15:16 | XMS_ITS | Encounter Summary ---
Author Organization [facility] Address [facility] [place] [address] Care Team Providers Care Spaghetti Press Helper Name Role Phone Reginaldo Crane MD Primary Care Provider +- Octavio Celestin MD Unavailable [phone] Source Comments In the event this information is protected by the Federal Confidentiality of Alcohol and Drug AbusePatient Records regulations: The Federal rules restrict any use of the information to criminally investigate or prosecute any alcohol or drug abuse patient.[facility] Encounter Details Date Type Department Care Team (Late st Contact Info) Description 04/25/2019 Patient Msg BMI [facility] [address] [id number] [place], [place] [id number] Jena Vick, RD [address] [phone] RE: Request an Appointment Social History Tobacco [...] Industry 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
--- OUTSIDE RECORDS SUMMARY | 2025-07-08 15:16 | XMS_ITS | Clinical Summary ---
Author Organization [facility] Address [address] [place] [id number] Care Team Providers Care Manager Equipment Name Role Phone Reginaldo Crane MD Primary Care Provider +- Octavio Celestin MD Unavailable [phone] Allergies No known active allergies Medications * [...] N ot on file 09/26/2020 Data from: [email or web address]://[email or web address]/. 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
[2025-07-08 16:06] LABS: Hematocrit 32.5 % (36.0-48.0); Hemoglobin 11.2 g/dL (12.0-16.0); Immature Granulocytes Abs Auto 0.01 10^3/uL (0.00-0.03); Immature Granulocytes Pct Auto 0.2 % (0.0-0.5); Lymphocytes Absolute Auto 1.6 10^3/uL (1.2-3.8); Mean Corpuscular HGB Conc 34.5 g/dL (29.9-35.2); Mean Corpuscular Hemoglobin 33.9 pg (26.7-34.0); Mean Corpuscular Volume 98.5 fL (81.0-99.0); Platelet Count 225 10^3/uL (150-450); Red Blood Count 3.30 10^6/uL (4.20-5.40); White Blood Count 4.8 10^3/uL (4.0-11.0)
--- OUTSIDE RECORDS SUMMARY | 2025-07-08 16:42 | XMS_ITS | CCD ---
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 Name Role Phone ISAAC LAROSE Referring Unavailable [...] ANDERSON Attending Unavailable David JIN Attending Unavailable MARTINAL, David Murphy Attending Unavailable MARTINALDavid Attending Unavailable Winston Sotelo MD Attending Provider [phone] Winston Sotelo MD Primary Care Provider [phone] Winston Sotelo Attending Unavailable Winston Sotelo Admitting Unavailable Winston Sotelo Primary Care Unavailable Winston Sotelo Attending Unavailable Winston Sotelo Admitting Unavailable ELTAHAWY, PATRICE Attending Unavailable GEORGIA GONZALES Attending Unavailable Allergies Allergy Classification Reported Allergen(s) Allergy Type Date of Onset Reaction(s) Facility (1 source) Cat Angioedema [facility] (1 source) DrugAllergiesUnable to Obtain [facility] Comment on above: Pharmacy/MD office jackelyn de souza (5 sources) Latex; Translations: [latex] Drug allergy 3 lips [facility] Medications Current Medications Medication Drug Class(es) Dates Sig (Normalized) Sig (Original) acetaminophen 500 mg oral tablet (10 sources) Start: 11-26-2024 take 2 tablets by mouth three times daily Acetaminophen 500 mg tablet Active 1000 MG PO Three times daily November 26, 2024 12:00am Tylenol Active [id number] 200 actuat albuterol 0.09 mg/actuat metered dose [...] 1day Quantity: 1 Refills: 0 Ordered: 10-Jul-2021 Galileo Jacqueline Start: 10-Jul-2021 Generic Substitution Allowed dextromethorphan hydrobromide 1.5 mg/ml / pyrilamine maleate 1.5 mg/ml oral solution (2 sources) Uncompetitive A-nmfpgy-K-aspartat e Receptor Antagonist, Sigma-1 Agonist Start: 08-27-2022 take 10 mL by mouth every eight hours Molena DM 7.5-7.5 MG/5ML 10 mL Orally every 8 hours for 5 days Aug, Active docusate sodium 100 mg oral tablet (4 sources) Start: 11-26-2024 Docusate Sodium 100 mg capsule Active MG PO November 26, 2024 12:00am Start: 02-09-2023 take 1 capsule by [facility] twice daily as needed for constipation Colace [...] 12:00am Start: 02-09-2023 take 1 tablet by [facility] twice daily ferrous sulfate 325 mg oral [...] Coronary arteriosclerosis; Translations: [Atherosclerotic heart disease of [place] coronary artery without angina pectoris] Onset: 07-04-2022 02-09-2023 Chronic Deficiency and other anemia (2 sources) Anemia 02-12-2018 Episodic Deficiency and other anemia (2 sources) Iron deficiency anemia; Translations: [Iron deficiency anemia, unspecified] Onset: 04-25-2023 Episodic Diabetes mellitus without complication (2 sources) Diabetes mellitus 02-09-2023 Chronic Disorders of lipid metabolism (2 sources) Mixed hyperlipidemia; Translations: [Mixed hyperlipidemia] Onset: 06-15-2025 Chronic E Codes: Fall (2 sources) Fall 07-10-2021 Comment on above: FALL Esophageal disorders (4 sources) Gastroesophageal reflux disease; Translations: [Gastro-esophageal reflux disease without esophagitis] 02-09-2023 Chronic Essential hypertension (9 sources) Essential (primary) hypertension; Translations: [Hypertensive disorder] Onset: 12-19-2018 02-12-2018 Chronic Hypertension with complications and secondary hypertension (4 sources) Hypertensive heart disease with heart failure; Translations: [Hypertensive heart disease without [...] Value Interpretation Reference Range Facility Office Visiton 06-15-2025 Follow-up visit [id number] Jackelyn Lujan 1965 F Date Provider Department Center 06/15/2025 [id number] GONZALES Family History Family Status - Relation Status Age at Mother Father Level of Service:63589 NM OFFICE/OUTPATIENT ESTABLISHED MOD MDM 30 MIN [facility] Orders Onlyon 06-15-2025 Orders Only [id number] Jackelyn Lujan S 1965 F Date Provider Department Center 06/15/2025 [id number], ADAM BRANDY Ferguson Shakir Family History Family Status - Relation Status Age at Mother Father Normal [facility] Office Visiton 12-23-2024 Follow-up visit [id number] Jackelyn Lujan S 1965 F Date Provider Department Center 12/23/2024 Samantha-NICHOLASJOSEPHJENNIFERSurajPATRICE BRANDY Phyllis Hos No family history on file Level of Service:70408 NM OFFICE/OUTPATIENT ESTABLISHED MOD [facility] 30 MIN [facility] Urine Cultureon 12-15-2024 Bacteria identified Cx Nom (U) ORGANISM: Escherichia coli (ESBL) (O:ESCCOLESBL) [place] Count >100,000 Aerobic HELENA Charge (NMIC56) SUSCEPTIBILITY [...] RESISTANT TO ALL B-LACTAM DRUGS. PERFORMED BY: [place] [address] PATHOLOGIST BIOLOGICAL AIDE SHERYL REGALADO M.D. Normal [facility] Comment on above: Performed By: #### C UU #### [address] Influenza virus B Ag [Presen ce] in Upper respiratory specimen by Rapid immunoassayon 11-26-2024 FLUBV Ag IA.rapid Ql (Nph) Influenza virus B Ag [Presence] in Upper respiratory specimen by Rapid immunoassay [facility] No Panel Informationon 11-26 Influenza Type A (Rapid) Negative [facility] POC SARS CoV-2 Antigen Negative [facility] No Panel InformationOrdered By: Melvi Vega on 11-26-2024 Quick Strep (POC) [facility] Urine Cultureon 10-16-2024 Bacteria identified Cx Nom (U) 15,000 colonies/ml mixed bacterial skin contaminants 2 Days PERFORMED BY: [place] [address] PATHOLOGIST BIOLOGICAL AIDE SHERYL REGALADO M.D. Normal [facility] Comment on above: Performed By: #### C UU #### [address] Urine cultureOrdered By: Brandon Sotelo on 10-16-2024 Bacteria identified Cx Nom (U) Urine culture [facility] Ambulatory Visit Summaryon 0 04-25-2023 Ambulatory Visit Summary LUJAN, PALLAVI Melendez :1965 Visit Date:04/25/2023 Ambulatory Visit Instructions Your [...] receiving treatment for. Arthritis Numbness Normal [facility] General Surgery Office/Clini c Noteon 04-25-2023 General [...] SARS-CoV-2 (COVID-19) mRNA-1273 vaccine 04/19/2021 Recorded Normal [facility] Comment on above: Result Comment: Elec tronically Signed By: ANNABEL BERRY, David Joyce\Date and Time Signed: 04/25/23 16:13 EDT Pathology Noteon 04-16-2023 Pathology Note [id number]#[id number]:127 Normal [facility] Outside Colonoscopyon 2022 Outside Colonoscopy [id number]#[id number]:127 Normal [facility] Reminderson 04-12-2023 Reminders - From: Myra Escobedo LPN To: N - Clinical; Sent: 04/12/2023 13:58:02 EDT Show up: 03/11/2033 07:00:00 EDT Subject: colonoscopy recall Due Date/Time: 04/11/2033 07:00:00 EDT Reminder/Recall Patient due for screening colonoscopy 04/11/2033. Normal [facility] Pre-Certification Formon Pre-Certification Form [id number]#[id number]:127 [facility] Consent for Procedure/Surger yon 02-16-2023 Consent for Procedure/Surgery [id number]#1.00CD:127 [facility] Facesheeton 02-15-2023 Facesheet [id number]#[id number]:127 [facility] Ambulatory Visit Summaryon 0 02-14-2023 Ambulatory [...] longer receiving treatment for. Arthritis Numbness Normal [facility] Physician Referralon 023 Physician Referral [id number]:127 Normal [facility] INSULINon 01-17-2023 Insulin 7.1 uIU/mL Normal 2.6-24.9 [facility] Comment on above: Performed By: #### I NSULIN #### [facility] [address] [place] [address] Dr. Demetri Leahy CBC AUTO DIFFon 01-16-2023 BASO # 0.0 103/ul Normal 0.0-0.1 [facility] Comment on above: Performed By: #### C BC #### [facility] [address] [place] [address] Dr. Demetri Leahy Basophils/100 WBC (Bld) 0.7 % Normal 0.2-2.0 [facility] Comment on above: Performed By: #### C BC #### [facility] [address] [place] [address] Dr. Demetri Leahy EO # 0.1 103/ul Normal 0.0-0.7 [facility] Comment on above: Performed By: #### C BC #### [facility] [address] [place] [address] Dr. Demetri Leahy Eosinophils/100 WBC (Bld) 2.4 % Normal 0.9-7.0 [facility] Comment on above: Performed By: #### C BC #### [facility] [address] [place] [address] Dr. Demetri Leahy Erythrocyte distribution width (RBC) [Ratio] 12.9 % Normal 11.0-15.0 [facility] Comment on above: Performed By: #### C BC #### [facility] [address] [place] [address] Dr. Demetri Leahy Hematocrit (Bld) [Volume fraction] 32.3 % Critically low 36.0-48.0 [facility] Comment on above: Performed By: #### C BC #### [facility] [address] [place] [address] Dr. Demetri Leahy Hemoglobin (Bld) [Mass/Vol] 10.5 g/dL Critically low 12.0-16.0 [facility] Comment on above: Performed By: #### C BC #### [facility] [address] [place] [address] Dr. Demetri Leahy IG # 0.01 10e3/ul Normal 0.00-0.03 [facility] Comment on above: Performed By: #### C BC #### [facility] [address] [place] [address] Dr. Demetri Leahy IG % 0.2 % Normal 0.0-0.5 [facility] Comment on above: Performed By: #### C BC #### [facility] [address] [place] [address] Dr. Demetri Leahy LYMPH # 1.3 103/ul Normal 1.2-3.8 [facility] Comment on above: Performed By: #### C BC #### [facility] [address] [place] [address] Dr. Demetri Leahy Lymphocytes/100 WBC (Bld) 21.9 % Normal 20.5-60.0 [facility] Comment on above: Performed By: #### C BC #### [facility] [address] [place] [address] Dr. Demetri Leahy MANUAL DIFF REQ NO Normal [facility] Comment on above: Performed By: #### C BC #### [facility] [address] [place] [address] Dr. Demetri Leahy MCH (RBC) [Entitic mass] 31.4 pg Normal 26.7-34.0 [facility] Comment on above: Performed By: #### C BC #### [facility] [address] [place] [address] Dr. Demetri Leahy MCHC (RBC) [Mass/Vol] 32.5 g/dL Normal 29.9-35.2 [facility] Comment on above: Performed By: #### C BC #### [facility] [address] [place] [address] Dr. Demetri Leahy MCV (RBC) [Entitic vol] 96.7 fL Normal 81.0-99.0 [facility] Comment on above: Performed By: #### C BC #### [facility] [address] [place] [address] Dr. Demetri Leahy MONO # 0.6 103/ul Normal 0.3-0.8 [facility] Comment on above: Performed By: #### C BC #### [facility] [address] [place] [address] Dr. Demetri Leahy Monocytes/100 WBC (Bld) 9.9 % Normal 1.7-12.0 [facility] Comment on above: Performed By: #### C BC #### [facility] [address] [address] [address] Demetri Leahy NEUT # 3.9 103/ul Normal 1.4-6.5 [facility] Comment on above: Performed By: #### C BC #### [facility] [address] [address] [address] Demetri Leahy Neutrophils/100 WBC (Bld) 64.9 % Normal 43.0-75.0 [facility] Comment on above: Performed By: #### C BC #### [facility] [address] [address] [address] Demetri Leahy Platelet mean volume (Bld) [Entitic vol] 9.0 fL Critically low 9.5-13.5 [facility] Comment on above: Performed By: #### C BC #### [facility] [address] [address] [address] Demetri Leahy PLT 210 103/ul Normal 150-450 [facility] Comment on above: Performed By: #### C BC #### [facility] [address] [place] [address] Dr. Demetri Leahy RBC 3.34 106/ul Critically low 4.20-5.40 [facility] Comment on above: Performed By: #### C BC #### [facility] [address] [place] [address] Dr. Demetri Leahy WBC 5.9 103/ul Normal 4.0-11.0 [facility] Comment on above: Performed By: #### C BC #### [facility] [address] [address] [address] Demetri Leahy FREE THYROXINE INDEX T7on FTI 2.05 Normal 1.30-4.50 [facility] Comment on above: Performed By: #### T 7, TSH, LIPID, CMP #### [facility] [address] [address] [address] Demetri Leahy T3U 36.0 % Normal 30.0-39.0 [facility] Comment on above: Performed By: #### T 7, TSH, LIPID, CMP #### [facility] [address] [address] [address] Demetri Leahy T4 [Mass/Vol] 5.70 ug/dL Normal 4.80-13.90 [facility] Comment on above: Performed By: #### T 7, TSH, LIPID, CMP #### [facility] [address] [address] [address] Demetri Leahy GLYCOHEMOGLOBIN A1Con 2022 ADA RECOMMENDATION SEE BELOW Normal [facility] Comment on above: Result Comment: ADA RECOMMENDED LIMIT 4.0 - 6.0 ADA THERAPEUTIC TARGET < 7.0 ACTION SUGGESTED > 7.0 Performed By: #### A 1C #### [facility] [address] [address] [address] Demetri Leahy Glucose [Mass/Vol] 88 mg/dL Normal [facility] Comment on above: Performed By: #### A 1C #### [facility] [address] [address] [address] Demetri Leahy HbA1c (Bld) [Mass fraction] 4.7 % Normal 4.5-6.2 [facility] Comment on above: Performed By: #### A 1C #### [facility] [address] [address] [address] Demetri Leahy IRONon 01-16-2023 Iron [Mass/Vol] 41.0 ug/dL Critically low 50.0-170.0 [facility] Comment on above: Performed By: #### I BRYAN #### [facility] [address] [place] [address] Dr. Demetri Leahy LIPID PROFILEon 01-16-2023 CHOL-HDL RATIO NORM SEE BELOW Normal [facility] Comment on above: Result Comment: 3.3 - 4.4 LOW RISK 4.4 - 7.1 AVERAGE RISK 7.1 - 11.0 MODERATE RISK >11.0 HIGH RISK Performed By: #### T 7, TSH, LIPID, CMP #### [facility] [address] [address] [address] Demetri Leahy Cholesterol [Mass/Vol] 145 mg/dL Normal <=200 [facility] Comment on above: Performed By: #### T 7, TSH, LIPID, CMP #### [facility] [address] [address] [address] Demetri Leahy Cholesterol in HDL [Mass/Vol] 71 mg/dL Critically high 40-60 [facility] Comment on above: Performed By: #### T 7, TSH, LIPID, CMP #### [facility] [address] [address] [address] Demetri Leahy Cholesterol in LDL [Mass/Vol] 42.4 mg/dL Normal [facility] Comment on above: Performed By: #### T 7, TSH, LIPID, CMP #### [facility] [address] [place] [address] Dr. Demetri Leahy Cholesterol.total/Ch olesterol in HDL [Mass ratio] 2.0 {ratio} Normal [facility] Comment on above: Performed By: #### T 7, TSH, LIPID, CMP #### [facility] [address] [address] [address] Demetri Leahy HDL NORMAL > or = 60 mg/dl - LO W CARDIOVASCULAR RISK <40 mg/dl - HIGH CARDIOVASCULAR RISK Normal [facility] Comment on above: Performed By: #### T 7, TSH, LIPID, CMP #### [facility] [address] [address] [address] Demetri Leahy LDL CALC NORMAL SEE BELOW Normal [facility] Comment on above: Result Comment: <100 mg/dl OPTIMAL 100 - 129 mg/dl NEAR OR ABOVE OPTIMAL 130 - 159 mg/dl BORDERLINE HIGH 160 - 189 mg/dl HIGH >190 mg/dl VERY HIGH Performed By: #### T 7, TSH, LIPID, CMP #### [facility] [address] [address] [address] Demetri Leahy Triglyceride [Mass/Vol] 158 mg/dL Critically high <=150 [facility] Comment on above: Performed By: #### T 7, TSH, LIPID, CMP #### [facility] [address] [address] [address] Demetri Leahy VLDL CALC 31.6 mg/dL Normal [facility] Comment on above: Performed By: #### T 7, TSH, LIPID, CMP #### [facility] [address] [address] [address] Demetri Leahy OCC BLD IMMUNO SCREENon 12-21 OCCULT BLOOD Negative Normal NEGATIVE [facility] Comment on above: Performed By: #### T 7, TSH, LIPID, CMP #### [facility] [address] [address] [address] Demetri Leahy PROF 14(COMP METB)on 023 Albumin [Mass/Vol] 3.8 g/dL Normal 3.4-5.0 [facility] Comment on above: Performed By: #### T 7, TSH, LIPID, CMP #### [facility] [address] [place] [address] Dr. Demetri Leahy Albumin/Globulin [Mass ratio] 1.2 {ratio} Normal [facility] Comment on above: Performed By: #### T 7, TSH, LIPID, CMP #### [facility] [address] [place] [address] Dr. Demetri Leahy ALP [Catalytic activity/Vol] 50 U/L Normal 46-116 [facility] Comment on above: Performed By: #### T 7, TSH, LIPID, CMP #### [facility] [address] [place] [address] Dr. Demetri Leahy ALT [Catalytic activity/Vol] 53 U/L Normal 14-59 [facility] Comment on above: Performed By: #### T 7, TSH, LIPID, CMP #### [facility] [address] [place] [address] Dr. Demetri Leahy Anion gap [Moles/Vol] 14.1 mmol/L Normal [facility] Comment on above: Performed By: #### T 7, TSH, LIPID, CMP #### [facility] [address] [place] [address] Dr. Demetri Leahy AST [Catalytic activity/Vol] 36 U/L Normal 15-37 [facility] Comment on above: Performed By: #### T 7, TSH, LIPID, CMP #### [facility] [address] [address] [address] Demetri Leahy Bilirubin [Mass/Vol] 0.4 mg/dL Normal 0.2-1.0 [facility] Comment on above: Performed By: #### T 7, TSH, LIPID, CMP #### [facility] [address] [address] [address] Demetri Leahy Calcium [Mass/Vol] 9.0 mg/dL Normal 8.5-10.1 [facility] Comment on above: Performed By: #### T 7, TSH, LIPID, CMP #### [facility] [address] [address] [address] Demetri Leahy Chloride [Moles/Vol] 109 mmol/L Critically high 98-107 [facility] Comment on above: Performed By: #### T 7, TSH, LIPID, CMP #### [facility] [address] [place] [address] Dr. Demetri Leahy CO2 [Moles/Vol] 28.0 mmol/L Normal 21.0-32.0 [facility] Comment on above: Performed By: #### T 7, TSH, LIPID, CMP #### [facility] [address] [address] [address] Demetri Leahy Creatinine [Mass/Vol] 0.79 mg/dL Normal 0.55-1.02 [facility] Comment on above: Performed By: #### T 7, TSH, LIPID, CMP #### [facility] [address] [place] [address] Dr. Demetri Leahy EGFR-AF VENEZ[place]ELAN >60 Normal >=60 [facility] Comment on above: Performed By: #### T 7, TSH, LIPID, CMP #### [facility] [address] [address] [address] Demetri Leahy EGFR-NON AF [place] >60 Normal >=60 [facility] Comment on above: Performed By: #### T 7, TSH, LIPID, CMP #### [facility] [address] [place] [address] Dr. Demetri Leahy Globulin (S) [Mass/Vol] 3.3 g/dL Normal [facility] Comment on above: Performed By: #### T 7, TSH, LIPID, CMP #### [facility] [address] [address] [address] Demetri Leahy Glucose [Mass/Vol] 86 mg/dL Normal 74-106 [facility] Comment on above: Performed By: #### T 7, TSH, LIPID, CMP #### [facility] [address] [address] [address] Demetri Leahy Potassium [Moles/Vol] 4.1 mmol/L Normal 3.5-5.1 [facility] Comment on above: Performed By: #### T 7, TSH, LIPID, CMP #### [facility] [address] [address] [address] Demetri Leahy Protein [Mass/Vol] 7.1 g/dL Normal 6.4-8.2 [facility] Comment on above: Performed By: #### T 7, TSH, LIPID, CMP #### [facility] [address] [place] [address] Dr. Demetri Leahy Sodium [Moles/Vol] 147 mmol/L Critically high 136-145 [facility] Comment on above: Performed By: #### T 7, TSH, LIPID, CMP #### [facility] [address] [address] [address] Deemtri Leahy Urea nitrogen [Mass/Vol] 30.0 mg/dL Critically high 7.0-18.0 [facility] Comment on above: Performed By: #### T 7, TSH, LIPID, CMP #### [facility] [address] [place] [address] Dr. Demetri Leahy Urea nitrogen/Creatinine [Mass ratio] 38.0 mg/mg Normal [facility] Comment on above: Performed By: #### T 7, TSH, LIPID, CMP #### [facility] [address] [place] [address] Dr. Demetri Leahy Quick Strepon 01-16-2023 S. pyogenes Org specific cx Ql (Throat) Negative [employer] Other Quick Strep [facility] ipvive Other TSHon 01-16-2023 TSH 1.389 uIU/mL Normal 0.358-3.74 0 [facility] Comment on above: Performed By: #### T 7, TSH, LIPID, CMP #### [facility] [address] [address] [address] Demetri Leahy COVID/FLU RT-PCRon 2 SARS-CoV-2 (COVID-19) RNA KARTHIK+probe Ql (Unsp spec) Negative [employer] Other COVID/FLU RT-PCR Negative Sencha Other Quick Strepon 09-04-2022 S. pyogenes Org specific cx Ql (Throat) Negative [employer] Other Quick Strep [employer] Other COVID/FLU RT-PCRon 2 SARS-CoV-2 (COVID-19) RNA KARTHIK+probe Ql (Unsp spec) Negative [employer] Other COVID/FLU RT-PCR Negative [employer]cha Other Quick Strepon 08-27-2022 S. pyogenes Org specific cx Ql (Throat) Negative [employer] Other Quick Strep [employer] Other PROF CHEM 8 (BAS METB)on Anion gap [Moles/Vol] 13.6 mmol/L Normal [facility] Comment on above: Performed By: #### B MP #### [facility] [address] [address] [address] Demetri Leahy Calcium [Mass/Vol] 9.0 mg/dL Normal 8.5-10.1 [facility] Comment on above: Performed By: #### B MP #### [facility] [address] [address] [address] Demetri Leahy Chloride [Moles/Vol] 105 mmol/L Normal 98-107 [facility] Comment on above: Performed By: #### B MP #### [facility] [address] [address] [address] Demetri Leahy CO2 [Moles/Vol] 26.9 mmol/L Normal 21.0-32.0 [facility] Comment on above: Performed By: #### B MP #### [facility] [address] [address] [address] Demetri Leahy Creatinine [Mass/Vol] 1.04 mg/dL Critically high 0.55-1.02 [facility] Comment on above: Performed By: #### B MP #### [facility] [address] [address] [address] Demetri Leahy EGFR-AF VENEZUELAN >60 Normal >=60 [facility] Comment on above: Performed By: #### B MP #### [facility] [address] [address] [address] Demetri Leahy EGFR-NON AF VENEZUELAN 54 mL/min/1.73m2 Critically low >=60 The [facility] Comment on above: Performed By: #### B MP #### [facility] [address] [address] [address] Demetri Leahy Glucose [Mass/Vol] 99 mg/dL Normal 74-106 [facility] Comment on above: Performed By: #### B MP #### [facility] [address] [address] [address] Demetri Leahy Potassium [Moles/Vol] 4.5 mmol/L Normal 3.5-5.1 [facility] Comment on above: Performed By: #### B MP #### [facility] [address] [address] [address] Demetri Leahy Sodium [Moles/Vol] 141 mmol/L Normal 136-145 [facility] Comment on above: Performed By: #### B MP #### [facility] [address] [address] [address] Demetri Leahy Urea nitrogen [Mass/Vol] 44.0 mg/dL Critically high 7.0-18.0 [facility] Comment on above: Performed By: #### B MP #### [facility] [address] [address] [address] Demetri Leahy Urea nitrogen/Creatinine [Mass ratio] 42.3 mg/mg Normal [facility] Comment on above: Performed By: #### B MP #### [facility] [address] [address] [address] Demetri Leahy PROF CHEM 8 (BAS METB)on Anion gap [Moles/Vol] 10.3 mmol/L Normal [facility] Comment on above: Performed By: #### B MP #### [facility] [address] [place] [address] Dr. Demetri Leahy Calcium [Mass/Vol] 8.6 mg/dL Normal 8.5-10.1 [facility] Comment on above: Performed By: #### B MP #### [facility] [address] [place] [address] Dr. Demetri Leahy Chloride [Moles/Vol] 107 mmol/L Normal 98-107 [facility] Comment on above: Performed By: #### B MP #### [facility] [address] [place] [address] Dr. Demetri Leahy CO2 [Moles/Vol] 29.0 mmol/L Normal 21.0-32.0 [facility] Comment on above: Performed By: #### B MP #### [facility] [address] [place] [address] Dr. Demetri Leahy Creatinine [Mass/Vol] 1.42 mg/dL Critically high 0.55-1.02 [facility] Comment on above: Performed By: #### B MP #### [facility] [address] [place] [address] Dr. Demetri Leahy EGFR-AF VENEZUELAN 46 mL/min/1.73m2 Critically low >=60 The [facility] Comment on above: Performed By: #### B MP #### [facility] [address] [place] [address] Dr. Demetri Leahy EGFR-NON AF VENEZUELAN 38 mL/min/1.73m2 Critically low >=60 The [facility] Comment on above: Performed By: #### B MP #### [facility] [address] [address] [address] Demetri Leahy Glucose [Mass/Vol] 91 mg/dL Normal 74-106 [facility] Comment on above: Performed By: #### B MP #### [facility] [address] [address] [address] Demetri Leahy Potassium [Moles/Vol] 5.3 mmol/L Critically high 3.5-5.1 [facility] Comment on above: Performed By: #### B MP #### [facility] [address] [address] [address] Demetri Leahy Sodium [Moles/Vol] 141 mmol/L Normal 136-145 [facility] Comment on above: Performed By: #### B MP #### [facility] [address] [address] [address] Demetri Leahy Urea nitrogen [Mass/Vol] 48.0 mg/dL Critically high 7.0-18.0 [facility] Comment on above: Performed By: #### B MP #### [facility] [address] [address] [address] Demetri Leahy Urea nitrogen/Creatinine [Mass ratio] 33.8 mg/mg Normal [facility] Comment on above: Performed By: #### B MP #### [facility] [address] [address] [address] Demetri Leahy BN ELBOW COMPLETE MIN. 3 VIE [facility] 07-10-2021 BN ELBOW COMPLETE MIN. 3 VIEWS Patient Name: PALLAVI LUJAN STUDY: ELBOW COMPLETE MIN 3 VIEWS Left INDICATION: L elbow trauma. COMPARISON: None ACCESSION NUMBER(S): [id number] ORDERING CLINICIAN: JACQUELINE ROBLES FINDINGS: Heterotopic ossification adjacent to the medial epicondyle of the distal humerus suggesting either chronic epicondylitis or remote injury. No acute fracture dislocation. IMPRESSION: Heterotopic ossification adjacent to the medial epicondyle of the distal humerus suggesting either chronic epicondylitis or remote injury. Electronically signed by: DOLORES PRICE MD Normal [facility] BN KNEE; COMPLT, 4 OR MORE V IEWSon 07-10-2021 BN KNEE; COMPLT, 4 OR MORE VIEWS Patient Name: PALLAVI LUJAN STUDY: KNEE; COMPLT, 4 OR MORE VIEWS INDICATION: knee injury after fall. COMPARISON: None ACCESSION NUMBER(S): [id number] ORDERING CLINICIAN: ADELSO LUTHER FINDINGS: Mild osteoarthritis right knee with small posterior loose body. Remote posttraumatic changes from prior MCL injury with heterotopic ossification. No acute fracture or osseous abnormality otherwise. IMPRESSION: Mild osteoarthritis right knee with small posterior loose body. Remote posttraumatic changes from prior MCL injury with heterotopic ossification. Electronically signed by: DOLORES PRICE MD [facility] NR CT C-SPINE WO CONTRASTon 07-10-[address] C-SPINE WO CONTRAST Patient Name: PALLAVI LUJAN STUDY: CT HEAD WO CONTRAST; CT C-SPINE WO CONTRAST; 07/10/2021 6:48 pm INDICATION: intox, head trauma, Lie Flat: Yes; fall at [employer], neck pain, Lie Flat: Yes COMPARISON: None. ACCESSION NUMBER(S): [id number]; [id number] ORDERING CLINICIAN: JACQUELINE ROBLES; ADELSO LUTHER TECHNIQUE: [...] as stated. This study was interpreted at [facility], [place], [place]. Electronically signed by: DO Omari REED [facility] NR CT HEAD WO CONTRASTon NR CT HEAD WO CONTRAST Patient Name: PALLAVI LUJAN STUDY: CT HEAD WO CONTRAST; CT C-SPINE WO CONTRAST; 07/10/2021 6:48 pm INDICATION: intox, head trauma, Lie Flat: Yes; fall at [employer], neck pain, Lie Flat: Yes COMPARISON: None. ACCESSION NUMBER(S): [id number]; [id number] ORDERING CLINICIAN: JACQUELINE LUTHER TECHNIQUE: Axial noncontrast [...] as stated. This study was interpreted at [facility], [place], [place]. Electronically signed by: ANDRIY PERKINS, DO [place] [facility] Provider Note - ED v3on 06-22 Provider [...] without assoc (more content not included)... Normal [facility] Risk Screen - Adult Emergenc yon 07-10-2021 Risk Screen - Adult Emergency Preferred Language: Preferred Language: Preferred Language for Discussing Health Care (patient/designee)Arabic Advanced Directives: Advance Directive/DNRno Advance Directive Information [...] Communicatenone Learning Preferencesaudio Cultural Considerationsnone Developmental Considerationsnone Jainism Considerationsnone Other Learnersnone Learning Assessment (Other Learner): Learning Assessment (Other Learner): Other learner availableno Pressure Injury/TB/Substance: Pressure Injury: Pressure Injury Present on Admissionno Do you have a coughno Smoking Statusnever smoker (1) Alcohol Usedenies(1) Drug Usedenies (1) Drug 2 Usedenies (1) Admission Risk Screen: Significant IndicatorsComplete CAGE: CAGE: Is this an injured patient at a Trauma Center ([facility]/[place]): no Electronic Signatures: Uzma Menendez (RN) (Signed 10-Jul-2021 18:54) Authored: Preferred Language, Advanced Directives, Family Violence Adult, Learning Assessment (Patient), Learning Assessment (Other Learner), Pressure Injury/TB/Substance, Pressure Injury, CAGE Last Updated: 10-Jul-2021 18:54 by Uzma Menendez (RN) References: 1. Data Referenced From Provider Note - ED v3 10-Jul-2021 17:29 Normal [facility] Triage - EDon 07-10-2021 Triage - ED [...] obeys commands Best Verbal Response: (V5) oriented Olalla Score: 15 Cough lasting greater than 3 [...] 10-Jul-2021 17:15 by Lazarus Gupta (CONSUELO) Normal [facility] Cardiovascular Lab Reporton 09-22-2020 Cardiovascular Lab Report [facility] Patient Name: [facility] MR #: [id number] Physician: Patrice No Department of M.D. Medicine Service Date: 09/21/2020 Division of Birthdate: 1965 Cardiology Room #: Adult Cardiovascular Services [address] [address] Cardiovascular Laboratory Report FINAL IMPRESSIONS: 1. Mild [...] right internal jugular vein was obtained. A 6-Kenyan 11 cm sheath was inserted without difficulty. [...] the right radial artery was obtained. A 6-Kenyan glide sheath was inserted without difficulty. Bilateral [...] Patrice No M.D. 09/23/2020 01:05 P Patrice oN M.D. Date Dict: 09/21/2020/04:38 P/Patrice No M.D. Date Trans: 09/22/2020 02:14 A/elma [id number] cc: Winston Sotelo M.D. [address], [facility] [id number] [facility] Alfonso 02-01-2020 FLORIANN Telephone (COVRISAD) PALLAVI LUJAN ([id number]) 1965 F Date Time Provider Department 02/01/20 ARLETTE HERNANDEZ) NOELLE During your visit today, we recorded the following information about you: Arlette Hernandez PA-C, PA 02/01/2020 10:03 AM Signed Brant, Thank you for the referral, this patient meets criteria for COVID-19 testing in accordance with criteria found on the [facility] Intranet COVID19 Toolkit as of February 01, 2020 10:02 AM Please inform the patient that the test has been ordered, and that the [facility] [place] [facility] Scheduling Department will call to [...] Fully Assessed Reason for Visit: Covid-19 Hotline [0068] Primary Visit Diagnosis:Suspected Covid-19 Virus Infection [R68.89] Order(s):2019 CORONAVIRUS [SQCOVID] [facility] #: [id number] [facility] [3953703] Order #: [id number] Prescriptions as of 02/01/2020 Sig: ATORVASTATIN 80 [...] [F43.9] More... Anxiety [F41.9] BMI 40.0-44.9, adult ([facility]) [Z68.41] Encounter Status:Closed by ARLETTE HERNANDEZ on 02/01/20 [facility] Telephone (PANEWL) PALLAVI LUJAN ([id number]) 1965 F Date Time Provider Department 02/01/20 DEBBIE BORGES (RN) BLAZE During your visit today, we recorded the following information about you: Debbie Borges RN, RN 02/01/2020 9:32 AM Signed Telephone Nurse Triage for Flu-like symptoms Patient evaluated by telephone nursing triage.patient seen at [place] ED last nite.-Dx Bronchitis. zpak started and [...] acetaminophen overdose can hurt the liver. ? [employer], the company that makes Tylenol, has different dosage instructions for Tylenol in [place] and the [place]. In [place], the maximum recommended dose per day is 4,000 mg or twelve (12) Regular-Strength (325 mg) pills. In the [place], [employer] recommends a maximum dose of ten (10) Regular-Strength (325 mg) pills. ? Before taking any medicine, read all the instructions on the package. PATIENT INSTRUCTIONS: At present, these are our recommendations regarding the coronavirus (COVID-19) outbreak: - Wash your hands regularly for at least 20 seconds with soap and water, especially before eating. - If soap/water are unavailable, use a hand lead teller with at least 60% alcohol - Avoid [...] that you do not come to any [facility] facility without calling your primary care physician or speaking to a provider using a virtual visit using [facility] [employer] Care? Online. You will be evaluated to determine if you require being seen in person or if you meet CDC guidelines for testing for COVID-19 based on symptoms, travel and exposures. If you meet criteria for testing, your [employer] Online provider or primary care physician [...] information can be found on the [facility] and [facility] web sites: https://www.cdc.gov/coronav irus/2019-nCoV/index.html ? [email or web address] SIGNATURE: Debbie Borges RN PATIENT NAME: [...] by DEBBIE BORGES RN on 02/01/20 Normal [facility] Coronavirus 2019on 0 COVID 19 Result SPRAY MAKER Negative Normal Negative for COVID19 (SARS CoV2) by PCR. [facility] Comment on above: Result Comment: This test was developed and its performance characteristics determined by [facility] [place] [facility]'s Adelso [facility] [place]. This test has been authorized by FDA under an Emergency Use Authorization (EUA). This test has been validated in accordance with the FDA's Guidance Document Policy for Diagnostics Testing in Laboratories Certified to Perform High Complexity Testing under CLIA prior to Emergency use Authorization for Coronavirus Disease 2019 during the Public Health Emergency issued on December 20, 2019. Performed By: #### C OVID ####[facility] [place] [facility] [address] [place], [place] [id number] COVID 19 Source SPRAY MAKER Nasopharyngeal Swab Normal [facility] Comment on above: Performed By: #### C OVID ####[facility] [place], [place] [phone] PROGRESSon 02-01-2020 PROGRESS HNO ID: [id number] Author: Cherelle Velarde) EUGENIA Nuñez Service: ? Author Type: Physician High Energy Forming Equipment Operator Type: Progress Notes Filed: 02/01/2020 12:52 PM Note Text: Telemedicine Visit - Distance Health Virtual Visit Note This Team Access Model visit is a virtual encounter. It required patient-provider interaction for the medical decision making as documented below. Patient seen on [employer] Online platform. Location of patient: [place] History of Present Illness Pallavi Lujan is [...] in providing you the best care. Normal [facility] PROGRESS HNO ID: [id number] Author: Cynthia Boogie) Alee Service: ? Author Type: Physician [employer] Forming Equipment Operator Type: Progress Notes Filed: 02/01/2020 9:56 AM Note Text: Telemedicine Visit - Distance Health Telephone Visit Note This Team Access Model visit is a virtual encounter. It required patient-provider interaction for the medical decision making as documented below. The patient is a [facility] [place] [facility] employee: No Location of patient: [place] History of Present Illness Pallavi Lujan is a 54 year old female who presents with 1 days of symptoms that are stable. Pt reports that yesterday she all of a sudden felt unwell. Went to ER in [place] last night and reports that tested negative [...] fail to improve Cynthia Vickers PA-C Normal [facility] CNOVon 05-26-2019 CNOV Office Visit ([facility] ) PALLAVI LUJAN ([id number]) 1965 F Date Time Provider Department 05/26/19 1:00 PM [facility] During your visit today, we recorded the following information about you: Amelie Robledo, PHD 05/26/2019 2:28 PM Signed [facility] BARIATRIC SURGERY BEHAVIORAL HEALTH EVALUATION DATE OF SERVICE: 05/26/2019 TIME OF SERVICE: 1:10 PM - 2:10 PM COST CENTER: [facility] CPT CODE: 13462 Psychiatric diagnostic evaluation BILLING CODE: ENDO PSYL [...] strategies have been effective. The patient notes holiness practice is: Bahai; will think about whether she'd take blood [...] AFTER COMPLETION OF GROUP (To schedule, call [phone]) *Continue to avoid alcohol in preparation for [...] emotional and behavioral readiness (To schedule call [phone]) *Read Preparing for Weight Loss Surgery: Workbook (Treatments That Work) by Kris Bazzi, Reji Ndiaye, and Monse Alcantar ([employer], 2006) *continue CPAP Adherence *implement [...] any questions. Amelie Robledo Ph.D., Clinical Psychologist; [facility] Director of Behavioral Services BEHAVIORAL HEALTH [...] by AMELIE ROBLEDO PHD on 05/26/19 Normal [facility] CN Office Visit ([facility] ) PALLAVI LUJAN ([id number]) 1965 F Date Time Provider Department 05/26/19 12:00 PM PSYL TESTING MAIN [facility] During your visit today, we recorded the following information about you: Amelie Robledo, PHD 05/26/2019 3:52 PM Signed [facility] PSYCHOLOGICAL TEST REPORT PATIENT: Pallavi Lujan ( ) TEST ADMINISTERED: [place] Multiphasic Personality Inventory-2 Restructured Form (MMPI2-RF) Binge Eating Questionnaire (BEQ) DATE: ADMINISTERED: May 26, 2019 DATE REVIEWED: May 26, 2019 TIME REVIEWED (start/stop): 3:17 PM - 3:55 PM BILL / Venkat, [facility]#: 38089.59 computer administration of test. 84496 (1 unit) The patient completed the MMPI2-RF in the [facility] [place] and was proctored by trained personnel. The [...] AFTER COMPLETION OF GROUP (To schedule, call [phone]) *Continue to avoid alcohol in preparation for [...] emotional and behavioral readiness (To schedule call [phone]) *Read Preparing for Weight Loss Surgery: Workbook (Treatments That Work) by Kris Bazzi, Reji Ndiaye, and Monse Alcantar ([employer], 2006) *continue CPAP Adherence *implement [...] patient can request a written copy through [employer]. This report is not intended for [...] [F43.9] More... Anxiety [F41.9] BMI 40.0-44.9, adult ([facility]) [Z68.41] Encounter Status:Closed by AMELIE ROBLEDO PHD on 05/26/19 Normal [facility] PROGRESSon 05-26-2019 PROGRESS HNO ID: [id number] Author: Amelie Robledo Service: ? Author Type: Physician Type: Progress Notes Filed: 05/26/2019 3:52 PM Note Text: [facility] TEST REPORT PATIENT: Pallavi Lujan ( ) TEST ADMINISTERED: [place] Multiphasic Personality Inventory-2 Restructured Form (MMPI2-RF) Binge Eating Questionnaire (BEQ) DATE: ADMINISTERED: May 26, 2019 DATE REVIEWED: May 26, 2019 TIME REVIEWED (start/stop): 3:17 PM - 3:55 PM BILL Robledo, CPT#: 69377.59 computer administration of test. 83747 (1 unit) The patient completed the MMPI2-RF in the [facility] [place] and was proctored by trained personnel. The [...] AFTER COMPLETION OF GROUP (To schedule, call [phone]) *Continue to avoid alcohol in preparation for [...] emotional and behavioral readiness (To schedule call [phone]) *Read Preparing for Weight Loss Surgery: Workbook (Treatments That Work) by Kris Bazzi, Reji Ndiaye, and Monse Alcantar ([employer], 2006) *continue CPAP Adherence *implement [...] patient can request a written copy through [employer]. This report is not intended for forensic purposes. Amelie Robledo, Ph.D. Psychologist Normal [facility] PROGRESS HNO ID: [id number] Author: Amelie Robledo Service: ? Author Type: Physician Type: Progress Notes Filed: 05/26/2019 2:28 PM Note Text: [facility] BARIATRIC SURGERY BEHAVIORAL HEALTH EVALUATION DATE OF SERVICE: 05/26/2019 TIME OF SERVICE: 1:10 PM - 2:10 PM COST CENTER: [facility] CPT CODE: 21931 Psychiatric diagnostic evaluation BILLING CODE: ENDO PSYL MAIN JORGE ALBERTO8/Venkat DATE OF FIRST SERVICE THIS CYCLE: 05/26/2019 SESSION #: 1 The patient signed the Informed Consent for Psychological Evaluation AND Care Form, and the [facility] insurance benefits, fees for service, emergency procedures, [...] strategies have been effective. The patient notes holiness practice is: Bahai; will think about whether she'd take blood [...] AFTER COMPLETION OF GROUP (To schedule, call [phone]) *Continue to avoid alcohol in preparation for [...] emotional and behavioral readiness (To schedule call [phone]) *Read Preparing for Weight Loss Surgery: Workbook (Treatments That Work) by Kris Bazzi, Reji Ndiaye, and Monse Alcantar ([employer], 2006) *continue CPAP Adherence *implement [...] any questions. Amelie Robledo Ph.D., Clinical Psychologist; [facility] Director of Behavioral Services BEHAVIORAL HEALTH BARIATRIC EVALUATION SUMMARY DATE : 05/26/2019 PATIENT NAME: Ms. Pallavi Lujan 1. Consent: Fair 2. Expectations:Fair 3. Social support :Good 4. Mental Health :Good 5. Chemical/Alcohol Abuse/Dependence: Guarded 6. Eating Behaviors:Good 7. Adherence : Good 8. Coping/Stressors:Fair 9. Overall Psychological Impression: Fair Normal [facility] CNCNPATEDon 05-19-2019 CNCNPATED Education (BMIREJ) PALLAVI LUJAN ([id number]) 1965 F Date Time Provider Department 05/19/19 [...] guidelines for weight loss surgery and has [employer] Insurance therefore is required to complete 6 [...] 4. Participate in sitting exercise/therapy as possible. Bexnathanael Marquis 30 minutes each - every other [...] May 19, 2019 TIME: 10:06 AM PAGER: [phone] Primary Visit Diagnosis:Class 3 severe obesity due [...] Encounter Status:Closed by VIKAS SANTOS on 05/19/19 [facility] PROGRESSon 05-19-2019 PROGRESS HNO ID: [id number] Author: Vikas (Rd) Nicanor Service: ? Author [...] guidelines for weight loss surgery and has [employer] Insurance therefore is required to complete 6 [...] 4. Participate in sitting exercise/therapy as possible. [employer] 30 minutes each - every other day. [...] Vikas Santos RD PATIENT NAME: Pallavi Melendez [place] DATE: May 19, 2019 TIME: 10:06 AM PAGER: [phone] Normal [facility] CNCNPATEDon 03-14-2019 CNCNPATED Education (BMIREJ) PALLAVI LUJAN ([id number]) 1965 F Date Time Provider Department 03/14/19 2:00 PM VIKAS SANTOS (RAVI) BMIREJ Reason for Visit: Reassessment [674] Patient Education [91] Progress Notes: Vikas Santos RD 03/14/2019 5:08 PM Signed [facility] AM[facility]UL[facility] PATIENT EDUCATION NOTE-Established Shared [...] do you eat deep fried foods (chips, Kenyan fries, fried meats, etc) Never How often [...] guidelines for weight loss surgery and has [facility] therefore is required to complete 6 [...] March 14, 2019 TIME: 4:55 PM PAGER: [phone] Primary Visit Diagnosis:Class 3 severe obesity due [...] Allergies) Date Reviewed: 03/14/2019 Reviewed by: Vikas (Ravi) Nicanor - Fully [...] Status:Closed by VIKAS SANTOS on 03/14/19 Normal [facility] PROGRESSon 03-14-2019 PROGRESS HNO ID: [id number] Author: Vikas (Rd) Nicanor Service: ? Author Type: Registered Dietitian Type: Progress Notes Filed: 03/14/2019 5:08 PM Note Text: [facility] AMBULATORY PATIENT EDUCATION NOTE-Established Shared [...] Potato) 6. Vitamin D address per Dr. Gorty. Start a daily multivitamin with iron - - met ? Goal weight pre-op is?288?lbs. - in process Protein goal is?75?to 94?gm Changes In Treatment: Patient met goal(s): Yes Actions to implement interventions: Diet History: Do you typically skip meals? No How often do you eat deep fried foods (chips, Kenyan fries, fried meats, etc) Never How often [...] guidelines for weight loss surgery and has [employer] Insurance therefore is required to complete 6 [...] March 14, 2019 TIME: 4:55 PM PAGER: [phone] Normal [facility] CNCNPATEDon 04-29-2019 CNCNPATED Education (BMIREJ) PALLAVI LUJAN ([id number]) 1965 F Date Time Provider Department 02/17/19 [...] skip meals. - - met 2.? Begin [id number] calorie partial liquid diet (refer to handout) [...] guidelines for weight loss surgery and has [employer] Insurance therefore is required to complete 6 [...] April appointment today prior to leaving at [facility] if preferred location Referred/Supervised by: Grant MYERS Billing Type: Re-assess/15 min 2 units SIGNATURE: Vikas Santos RD PATIENT NAME: Pallavi Lujan DATE: February 17, 2019 TIME: 8:38 AM PAGER: [phone] Primary Visit Diagnosis:Class 3 severe obesity due [...] Encounter Status:Closed by VIKAS SANTOS on 02/17/19 [facility] PROGRESSon 02-17-2019 PROGRESS HNO ID: [id number] Author: Vikas Santos Service: ? Author Type: Registered Dietitian Type: Progress Notes Filed: 02/17/2019 11:26 AM Note Text: Nutritional Therapy Pre op weight loss surgery Sleeve Gastrectomy Re-Assessment PROGRESS: Nutrition Intervention (date of last encounter 01/17/2019) Read Your Guide to Surgery before next visit - - met 1.? Do not skip meals. - - met 2.? Begin [id number] calorie partial liquid diet (refer to handout) [...] guidelines for weight loss surgery and has [employer] Insurance therefore is required to complete 6 [...] April appointment today prior to leaving at [facility] if preferred location Referred/Supervised by: Neo/Mark MYERS Billing Type: Re-assess/15 min 2 units SIGNATURE: Vikas Santos RD PATIENT NAME: Pallavi Lujan DATE: February 17, 2019 TIME: 8:38 AM PAGER: [phone] Normal [facility] CNOVon 02-14-2019 CNOV Office Visit (BMIREJ ) PALLAVI LUJAN ([id number]) 1965 F Date Time Provider Department 02/14/19 [...] chronic medical conditions associated with obesity include Henderson diabetes, hypertension taking Norvasc, lisinopril, metoprolol and [...] 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 Anxiety [F41.9] BMI 40.0-44.9, adult ([facility]) [Z68.41] Medications Discontinued During This Encounter SYMBICORT 160-4.5 mcg/actuation inha* 02/03/2018 02/14/2019 Class: Historical Med Sig: Disc: Discontinued by Patient Letter Text Encounter Status:Closed by YNUI LARSON on 02/14/19 Normal [facility] PROGRESSon 02-14-2019 PROGRESS HNO ID: [id number] Author: Yuni Valverde) Neo Service: ? 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 Other: . IMPRESSION: Mild bibasilar atelectasis. Wildlife Veterinarian: ANGELA Transcribe Date/Time: Dec 19 2018 2:47P Dictated by : RUTH ANN OWENS MD This examination was interpreted and the report reviewed and electronically signed by: RUTH ANN OWENS MD on Dec 19 2018 2:48PM EST [id number] [facility] Vital Signs Date Time Vital Sign Value Performing Clinician Facility 11-26-2024 09:48-0500 Body height 165.1 cm Winston Sotelo MD Work Phone: [facility] 11-26-2024 09:48-0500 Body mass index (BMI) [Ratio] 34.9 kg/m2 Winston Sotelo MD Work Phone: [facility] 11-26-2024 09:48-0500 Body temperature 98.6 [degF] Winston Sotelo MD Work Phone: [facility] 11-26-2024 09:48-0500 Body weight 95.25 kg Winston Sotelo MD Work Phone: [facility] 11-26-2024 09:48-0500 Diastolic blood pressure 85 mm[Hg] iWnston Sotelo MD Work Phone: [facility] 11-26-2024 09:48-0500 Heart rate 119 /min Winston Sotelo MD Work Phone: [facility] 11-26-2024 09:48-0500 Respiratory rate 18 /min Winston Sotelo MD Work Phone: [facility] 11-26-2024 09:48-0500 SaO2% (BldA) [Mass fraction] 94 % Winston Sotelo MD Work Phone: [facility] 11-26-2024 09:48-0500 Systolic blood pressure 150 mm[Hg] Winston Sotelo MD Work Phone: [facility] 02-14-2023 15:47-0400 Blood Pressure Location David NILL [facility] [place] 02-14-2023 15:47-0400 Diastolic blood pressure 82 mm[Hg] David NILL [facility] [place] 02-14-2023 15:47-0400 Heart rate 82 /min David NILL [facility] [place] 02-14-2023 15:47-0400 Respiratory rate 16 /min David NILL [facility] [place] 02-14-2023 15:47-0400 Systolic blood pressure 132 mm[Hg] David NILL [facility] 02-04-2023 13:50-0400 Body height 165.1 cm Kaitlin Garibay Other [facility] Other 02-04-2023 13:50-0400 Body mass index (BMI) [Ratio] 35.44 kg/m2 Kaitlin Garibay Other [facility] Other 02-04-2023 13:50-0400 Body temperature 97.1 [degF] Kaitlin Garibay Other [facility] Other 02-04-2023 13:50-0400 Body weight 96.62 kg Kaitlin Garibay Other [facility] Other 02-04-2023 13:50-0400 Diastolic blood pressure 71 mm[Hg] Kaitlin Garibay Other [facility] Other 02-04-2023 13:50-0400 Respiratory rate 18 /min Kaitlin Garibay Other [facility] Other 02-04-2023 13:50-0400 SaO2% (BldA) [Mass fraction] 96 % Kaitlin Garibay Other [facility] Other 02-04-2023 13:50-0400 Systolic blood pressure 110 mm[Hg] Kaitlin Garibay Other [facility] Other 01-16-2023 16:45-0400 Body height 165.1 cm Yolie Cross Other [facility] Other 01-16-2023 16:45-0400 Body mass index (BMI) [Ratio] 36.27 kg/m2 Yolie Cross Other [facility] Other 01-16-2023 16:45-0400 Body temperature 97.3 [degF] Yolie Cross Other [facility] Other 01-16-2023 16:45-0400 Body weight 98.88 kg Yolie Cross Other [facility] Other 01-16-2023 16:45-0400 Respiratory rate 18 /min Yolie Cross Other [facility] Other 01-16-2023 16:45-0400 SaO2% (BldA) [Mass fraction] 97 % Yolie Cross Other [facility] Other 09-04-2022 13:50-0500 Body height 165.1 cm Kaitlin Lani Other [facility] Other 09-04-2022 13:50-0500 Body mass index (BMI) [Ratio] 35.94 kg/m2 Kaitlin Lani Other [facility] Other 09-04-2022 13:50-0500 Body temperature 97.1 [degF] Kaitlin Lani Other [facility] Other 09-04-2022 13:50-0500 Body weight 97.98 kg Kaitlin Lani Other [facility] Other 09-04-2022 13:50-0500 Diastolic blood pressure 75 mm[Hg] Kaitlin Lani Other [facility] Other 09-04-2022 13:50-0500 Respiratory rate 18 /min Kaitlin Lani Other [facility] Other 09-04-2022 13:50-0500 SaO2% (BldA) [Mass fraction] 97 % Kaitlin Lani Other [facility] Other 09-04-2022 13:50-0500 Systolic blood pressure 141 mm[Hg] Kaitlin Lani Other [facility] Other 08-27-2022 10:35-0500 Body height 165.1 cm Yolie Cross Other [facility] Other 08-27-2022 10:35-0500 Body mass index (BMI) [Ratio] 36.07 kg/m2 Yolie Tay Other [facility] Other 08-27-2022 10:35-0500 Body temperature 97.6 [degF] Yolie Cross Other [facility] Other 08-27-2022 10:35-0500 Body weight 98.34 kg Yolie Cross Other [facility] Other 08-27-2022 10:35-0500 Diastolic blood pressure 81 mm[Hg] Yolie Cross Other [facility] Other 08-27-2022 10:35-0500 Respiratory rate 18 /min Yolie Cross Other [facility] Other 08-27-2022 10:35-0500 SaO2% (BldA) [Mass fraction] 98 % Yolie Cross Other [facility] Other 08-27-2022 10:35-0500 Systolic blood pressure 126 mm[Hg] Yolie Cross Other [facility] Other 08-18-2021 15:30-0400 Body height 165.1 cm Tai Cotoxa Other [facility] Other 08-18-2021 15:30-0400 Body mass index (BMI) [Ratio] 48.25 kg/m2 Tai Olexa Other [facility] Other 08-18-2021 15:30-0400 Body weight 131.54 kg Tai Olexa Other [facility] Other 07-10-2021 19:10-0400 Body height 165.1 cm Pcp Unknown [facility] 07-10-2021 19:10-0400 Body temperature 97.52 [degF] Pcp Unknown [facility] 07-10-2021 19:10-0400 Body weight 94 kg Pcp Unknown [facility] 07-10-2021 19:10-0400 Diastolic blood pressure 68 mm[Hg] Pcp Unknown [facility] 07-10-2021 19:10-0400 Heart rate 78 /min Pcp Unknown [facility] 07-10-2021 19:10-0400 Respiratory rate 16 /min Pcp Unknown [facility] 07-10-2021 19:10-0400 SaO2% (BldA) [Mass fraction] 96 % Pcp Unknown [facility] 07-10-2021 19:10-0400 Systolic blood pressure 127 mm[Hg] Pcp Unknown [facility] Encounters Encounter Date Encounter Type Care Provider Facility Start: 06-15-2025 End: 06-15-2025 ambulatory [place] JANET [facility] Start: 12-23-2024 End: 12-23-2024 ambulatory EHAB [facility] Start: 12-15-2024 End: 12-15-2024 ambulatory Winston Sotelo MD Work Phone: [facility] Work Phone: Start: 12-15-2024 End: 12-15-2024 Departed Referred Winston Sotelo MD Work Phone: [facility] Start: 11-26-2024 End: 11-26-2024 ambulatory Winston Sotelo MD Work Phone: [facility] Work Phone: Start: 11-26-2024 End: 11-26-2024 Patient encounter procedure Winston Sotelo MD Work Phone: [facility] Work Phone: Start: 10-16-2024 End: 10-16-2024 ambulatory Winston Sotelo Facility:[facility] Start: 10-16-2024 End: 10-16-2024 Departed Referred Winston Sotelo MD Work Phone: [facility] [place] [facility] Start: 04-25-2023 End: 04-26-2023 ambulatory David R NILL Facility:[facility] Start: 04-25-2023 End: 04-25-2023 Patient encounter procedure David R NILL [facility] [place] Start: 04-11-2023 End: 04-12-2023 ambulatory David R NILL Facility:[id number] Start: 03-14-[address] WINSTON SOTELO . Facili ty:[facility] Start: 02-14-2023 End: 02-15-2023 ambulatory David R NILL Facility:[facility] Start: 02-14-2023 End: 02-14-2023 Patient encounter procedure David R NILL [facility] [place] Start: 02-04-2023 End: 02-04-2023 ambulatory Kaitlin Garibay Other [facility] Other Start: 02-04-2023 Office outpatient vi sit 15 minutes Kaitlin Garibay [facility] Start: 01-25-2023 ambulatory David NILL Facility:[facility] Start: 01-19-2023 Encounter for genera l adult medical examination without abnormal findings DR WINSTON SOTELO . [facility] Start: 01-16-2023 Office outpatient vi sit 15 minutes Yolie Cross [facility] Start: 01-16-2023 End: 01-17-[address] WINSTON SOTELO . [facility] Other Start: 01-16-2023 End: 01-17-2023 Encounter for general adult medical examination without abnormal findings DR WINSTON SOTELO . Facility:[facility] Start: 09-04-2022 End: 09-04-2022 ambulatory Kaitlin Garibay Other [facility] Other Start: 09-04-2022 Office outpatient vi sit 15 minutes Kaitlin Garibay [facility] Start: 08-27-2022 End: 08-27-2022 ambulatory Yolie Cross Other [facility] Other Start: 08-27-2022 Office outpatient vi sit 25 minutes Yolie Cross [facility] Start: 07-05-2022 End: 07-06-[address] PATRICE NO Facility:[facility] Start: 06-30-2022 End: 07-01-[address] WINSTON SOTELO . Facility:[facility] Start: 11-01-2021 End: 11-01-2021 ambulatory Tai Olexa Other [facility] Other Start: 11-01-2021 Postop follow up vis it related to original px Tai Olexa [facility] Start: 10-17-2021 End: 10-17-2021 ambulatory Tai Olexa Other [facility] Other Start: 10-17-2021 Telephone encounter Tai Olexa [facility] Start: 09-21-2021 End: 09-21-2021 ambulatory Tai Olexa Other [facility] Other Start: 09-21-2021 Telephone encounter Tai Olexa [facility] Start: 08-18-2021 Encounter for other preprocedural examination Tai Olexa [facility] Start: 08-18-2021 Office outpatient ne w 45 minutes Tai Olexa [facility] [place] Start: 07-10-2021 End: 07-10-2021 Emergency department patient visit Jacqueline Robles [facility] Adult ED Gold 04 Start: 03-25-2019 Patient encounter status Asha Sotelo MD Work Phone: [facility] Start: 12-19-2018 Encounter for other preprocedural examination [facility] Start: 12-19-2018 Patient encounter procedure ISAAC [facility] Procedures Date Procedure Procedure Detail Performing Clinician Start: 11-26-2024 Quick Strep (POC) Winston Sotelo MD Work Phone: Start: 10-16-2024 Urine culture Winston Sotelo MD Work Phone: Start: 04-11-2023 Colonoscopy David NILL Start: 04-11-2023 Esophagogastroduodenoscopy David NILL Start: 10-22-2020 Gastric sleeve David NILL Decompression of median nerve David NILL H/O: tubal ligation David NILL History of operative procedure on elbow David NILL Repair of meniscus David Ruth SCHROEDER Plan of Treatment Date Care Activity Detail Author Start: 12-15-2024 Urine culture [facility] Start: 12-15-2024 Bacteria identified in Urine by Culture Urine Culture [facility] Immunizations Immunization Date Immunization Notes Care Provider Shari saunders 02-04-2023 tetanus toxoid, reduced diphtheria toxoid, and acellular pertussis vaccine, adsorbed Kaitlin Lani Other [facility] 07-10-2021 tetanus toxoid, reduced diphtheria toxoid, and acellular pertussis vaccine, adsorbed Pcp Unknown [facility] 05-21-2021 SARS-CoV-2 (COVID-19 ) mRNA-1273 vaccine David NILL [facility] [place] 04-19-2021 SARS-CoV-2 (COVID-19 ) mRNA-1273 vaccine David NILL [facility] [place] NEGATED: Highlighted row has not occurred!02-14-2023 influenza virus vaccine, unspecified formulation David NILL [facility] [place] Payers Date Payer Category Payer Self-pay 1965 Unknown [id number] 2.16.84 [id number] 1965 Unknown [id number] 2.16.84 [id number] 1965 Unknown [id number] 2.16.84 [id number] 1965 Unknown [id number] 2.16.84 [id number] 1965 Unknown [id number] 1965 Unknown [id number] 1965 Unknown [id number] 1965 Unknown [id number] 1960 Medicaid [id number] 2. [id number] 1960 Unknown [id number] 2.1 [id number] Unknown [employer] Unknown [id number] Unknown [id number] Social History Date Type Detail Facility [facility] Tobacco smoking consumption unknown [facility] Sex Assigned At [facility] Start: 02-14-2023 End: 11-26-2024 Tobacco smoking status Ex-smoker (finding) [facility] Tobacco smoking status Never [facility] [place] Start: 11-26-2024 End: 12-17-2024 Sex Female (finding) [facility] Start: 1965 Sex Assigned At Female F [facility] Functional Status Date Assessment Result Facility 02-14-2023 Functional Status N/A [facility] [place] Clinical Notes 08-18-2021 to 06-15-2025 Note Date & Type Note Facility 06-15-2025 Note SUBJECTIVE Reason for Visit: Pallavi Lujan is a 60 y.o. year old female patient being seen for follow-up visit. HPI: Pallavi Lujan is a 60 y.o. year old female with significant medical history of mild CAD, diastolic dysfunction, and hypertension. Recent ED visit in early May of this year (2024) presenting with chest pain for 3 days duration. Workup in the ED revealed EKG showing sinus rhythm with a heart rate of 78, no ST elevation or depression. Patient presentation deemed most likely secondary to musculoskeletal pain. CXR negative for acute pathology, patient troponin repeated twice and negative. 06/15/2025 office visit: Patient was seen and evaluated in the office today. She endorses daily dull chest pain, with no radiation, or shortness of breath. Nonexertional. Denies lower extremity edema. Endorses palpitations occurring a few times per month. 12/23/2024 office visit (Dr. No): Chief Complaint: Patient here for 1 year follow up CAD, hypertension, and diastolic heart failure. Echo was not completed since last year because it was denied. She was seen in [facility] ED a few weeks ago for cold symptoms. C/o chest ache every morning, which lightens up throughout the day. Says sometimes her HR is elevated. Medical History[1] Surgical History[2] Problem List[3] family history is not on file. Social History[4] OBJECTIVE Visit Vitals Smoking Status Former Physical Exam Constitutional: General Appearance: well-developed, appears stated age. Level of Distress: no acute distress. Neck: Jugular Veins: normal jugular venous pressure. Lungs: Auscultation: no rales or rhonchi and normal breath sounds. Cardiovascular: Rate And Rhythm: regular Heart Sounds: normal S1 and s2; Systolic Murmur: not heard. Diastolic Murmur: not heard. Extremities: no edema Peripheral Pulses: Pulses: full and equal in all extremities except if noted. Abdomen: Inspection and Palpation: non distended or tender and soft. Musculoskeletal: Inspection: no joint tenderness or swelling. Neurologic: Gait: normal gait. Psychiatric: Mental Status: alert and normal affect. Skin: Inspection and Palpation: warm and dry. Allergies: Allergies[5] Outpatient Medications: Current Outpatient Medications Medication Instructions aspirin 81 mg chewable tablet CHEW 1 TABLET BY MOUTH EVERY DAY atorvastatin (LIPITOR) 80 mg, oral, Nightly celecoxib (CeleBREX) 200 mg capsule 1 tablet, oral, Daily diazePAM (Valium) 5 mg tablet As needed ferrous sulfate 325 (65 Fe) MG tablet 1 tablet, oral, 2 times daily RT furosemide (Lasix) 20 mg tablet TAKE ONE TABLET BY MOUTH ONCE DAILY DIRECTED Linzess 72 mcg, oral, Daily lisinopril 40 mg, oral, Daily oxybutynin (Ditropan) 5 mg tablet 1 tablet, oral, Daily pantoprazole (ProtoNix) 40 mg EC tablet 1 tablet, oral, 2 times daily RT tiZANidine (Zanaflex) 4 mg tablet 1 tablet, oral, As needed Recent Labs: No visits with results within 6 Month(s) from this visit. Latest known visit with results is: [facility] Encounter on 09/21/2020 Component Date Value Ventricular Rate 09/21/2020 70 Atrial Rate 09/21/2020 70 NM Interval 09/21/2020 148 QRS DURATION 09/21/2020 80 QT Interval 09/21/2020 394 QTC CALCULATION(BEZET) 09/21/2020 425 P [place] 09/21/2020 42 R-[place] 09/21/2020 26 T Wave [place] 09/21/2020 22 Diagnosis 09/21/2020 Value:Normal sinus rhythm Normal ECG No previous ECGs available Confirmed by Dorinda SUAREZ, KAMINI Carrasquillo ([id number]) on 09/21/2020 4:24:50 PM Most recent labs reviewed, 06/15/2025: TSH 1.6, T4 is 5.5, free T3 is 2.63 Sodium 142, potassium 4.7, BUN 27, creatinine 0.92, eGFR greater than 60, glucose 77, hemoglobin A1c 4.7%, albumin 3.7 WBC 4.8, hemoglobin 11.6, platelets 223 I have personally reviewed and anaylzed the following laboratory results above. These findings have been analyzed in the context of the patient's clinical presentation. Cardiovascular Diagnostic Studies: 09/21/2020 Cath Service Date: 09/21/2020 Cardiovascular Laboratory [...] indicated. 4. Follow up with Dr. Winston oStelo as scheduled. 5. Follow up with Dr. No as scheduled. TTE 01/15/2025: CONCLUSION: 1. Normal ventricular size and systolic function. Estimated LVEF is 55 to 60%. 2. No sign (more content not included)... [facility] 12-23-2024 Note [facility] Card[facility] Clinic Note Chief Complaint: Patient here for 1 year follow up CAD, hypertension, and diastolic heart failure. Echo was not completed since last year because it was denied. She was seen in [facility] ED a few weeks ago for cold [...] ejection fraction Ess (more content not included)... [facility] 11-26-2024 Evaluation note Diagnosis Onset Date Resolution Viral URI with cough acute Febr ua2024 9:13am Contact with or suspected exposure to severe acute respiratory syndrome noneactive November 9:13am Sore throat noneactive November 26, 2024 9:13am [facility] Work Phone: 1(265) 822-586504-27-2023 NoteChief Complaint consultation for anemia [facility] Staff 57 year old female presents on [...] more than 30 d (more content not included)...[facility]Result Comment: Electronically Signed By: ANNABEL BERRY, David Joyce\Date and Time Signed: 02/15/23 16:26 [id number] Evaluation note* Encounter Date Diagnosis Assessment Notes [...] no improvement in 2 to 3 days [facility] Other 03-28-2023 Evaluation note* Encounter Date Diagnosis [...] treatment plan. Patient left in stable condition. [facility] Other 11-14-2022 Evaluation note* Encounter Date Diagnosis [...] no improvement in 2 to 3 days. [facility] Other 11-06-2022 Evaluation note* Encounter Date Diagnosis [...] and rest, Tylenol/Motrin as directed, rx of Molena and Flonase, cool mist humidifier, throat lozenges. [...] condition Aug, Sore throat (ICD-10 - J02.9) [facility] Other 01-11-2022 Evaluation note* Encounter Date Diagnosis [...] remova l of sutures (ICD-10 - Z48.02) [facility] Other 12-27-2021 Evaluation note* Encounter Date Diagnosis Assessment Notes Treatment Notes Treatment Clinical Notes Sep, Other specified postprocedural states (ICD-10 - Z98.890) [facility] Other 10-28-2021 Evaluation note* Encounter Date Diagnosis [...] outcome. Jul, Pre-op exam (ICD-10 - Z01.818) [facility] Other Evaluation + Plan note No data available for this section [facility] Evaluation noteNo InformationNort eeden Other Evaluation note* Diagnosis Onset Date Resolution Status Admit Date Contact with or suspected exposure to severe acute respiratory syndrome noneactive November 9:13am Sore throat noneactive November 26, 2024 9:13am [facility] Work Phone: History general Narrative - Reported* Type Description Date Medical History Hypertension Medical History hypercholesterolemia Medical History urinary frequency Medical History acid reflux Medical History Arthritis Medical History pre diabetic Surgical History knee surgery 2010 Surgical History tubal ligation Surgical History ankle surgery Hospitalization History see above surgical histo ry [facility] Other Hisuhqp general Narrative - Reported* Type Description Date Medical History Hypertension Medical History hypercholesterolemia Medical History urinary frequency Medical History acid reflux Medical History Arthritis Medical History pre diabetic Surgical History knee surgery 2011 Surgical History tubal ligation Surgical History ankle surgery Surgical History gastric bypass Hospitalization History see above surgical histo [employer] Other Hiseytd general Narrative - Reported* Type Description Date Medical History Hypertension Medical History hypercholesterolemia Medical History urinary frequency Medical History acid reflux Medical History Arthritis Medical History pre diabetic Surgical History knee surgery 2010 Surgical History tubal ligation Surgical History ankle surgery Surgical History gastric bypass Surgical History right elbow Surgical History carpal tunnel Hospitalization History see above surgical [facility] Discharge instructions No data available for this section General Surgery [place] Progress note No data available for this section General Surgery [place] Summary Purpose Family History No Family History [...] section and content) DATE CREATED AUTHOR 12/20/2018 [facility] DATE CREATED AUTHOR AUTHOR'S ORGANIZ ATION 02/04/2020 [facility] DATE CREATED AUTHOR AUTHOR'S ORGANIZ ATION 08/27/2021 [facility] DATE CREATED AUTHOR AUTHOR'S ORGANIZ ATION 08/29/2021 [facility] DATE CREATED AUTHOR AUTHOR'S ORGANIZ ATION 03/07/2023 [facility] DATE CREATED AUTHOR AUTHOR'S ORGANIZ ATION 04/26/2023 [facility] DATE CREATED AUTHOR AUTHOR'S ORGANIZ ATION 12/22/2024 [facility] DATE CREATED AUTHOR AUTHOR'S ORGANIZ ATION 06/19/2025 [facility] <item> Privacy Markings (unrecogniz ed section and [...] Team Status: Active Member Role Status Dates Wisnton Sotelo MD Primary Care Provider Active Team [...] Status Dates Winston Sotelo MD Primary Care Provide r, Attending Provider [...] BE BASED ON THE PRIMARY CLINICAL RECORDS. [facility]. provides no warranty or guarantee of the accuracy or completeness of information in this document.
== END 2025-07-08 15:11 | disposition home or self-care (01) ==
LOC: LAB 15:12
PROVIDERS: PCP Family Medicine; Visit Provider Family Medicine
DX: D64.9 Anemia, unspecified (principal)
CPT/HCPCS: 36415; 85025

== ENCOUNTER 2025-09-10 16:06 | Outpatient (OUT) | payer OTHER, SELFPAY ==
--- OUTSIDE RECORDS SUMMARY | 2025-08-27 08:15 | XMS_ITS ---
Author Organization [facility] [place] Address [address] [place] [address] Care Team Providers Care Assembly And Packing Supervisor Name Role Phone David Crane Primary Care Provider Allergies No Known Allergies Results Component Value Reference Range Notes UA DIP NONAUTO WO MICRO (810 02) - IN OFFICE (Not yet reviewed by provider) Interpretation: Performing Lab: Notes/Report: COLOR yellow JSUJEDVrnvrtQKSHIHDaKIPLDCLVDlSHVABL2KMFPVHPL GRAVITY1.135ZUNATfVA7WEVCTPA58 UROBILINOGENnNITRITEnLEUKOCYTE LHGMNJOI89+ REASON FOR VISIT Physical, Had a UTI previously- did take all of the ATB, missed a day in the middle of the script but did finish out whole script, Lisinopril-said she checks it daily and if high will take a half of one Medications Medication SIG (Take, Route, Frequency, Duration) Notes Start Date End Date Status Ferrous Sulfate 325 (65 Fe) MG 1 tablet Orally t wice a day; Duration: 30 days ActiveAcetaminophen Extra Strength 500 mgTAKE TWO TABLETS BY MOUTH THREE TIMES A DAY; Duration: 28ActiveLisinopril 10 MG1 tablet Orally Once a day; Duration: 30 days5ActiveColace 100 MG2 tabs Orally Once a day; Duration: 30 days ActiveSemaglutide 2.268 mg/0.63 mL 2.268 mg/0.63 mL0.63 mL Subcutaneous Once weekly; Duration: 30 days5ActiveCVS Stool Softener 100 MGTAKE 1 CAPSULE BY MOUTH 1 - 2 TIMES A DAY; Duration: 90 daysActiveoxyBUTYnin Chloride 5 mgTAKE ONE TABLET BY MOUTH ONCE DAILY; Duration: 28ActivelevoFLOXacin 750 MG1 tablet Orally Once a day; Duration: 10 day(s)5ActiveCelecoxib 200 mgTAKE ONE CAPSULE BY MOUTH ONCE DAILY; Duration: 28ActivePantoprazole Sodium 40 mgTAKE ONE TABLET BY MOUTH TWICE A DAY; Duration: 28ActiveAspirin Low Dose 81 mgTAKE ONE TABLET BY MOUTH ONCE DAILY; Duration: 28Active Social History Tobacco Use: Social History Observation Description Date Details (start date - stop date) Never Smoker NA - NA Tobacco Use/Smoking Question Answer Notes Patient is a nonsmoker Vital Signs Weight 200.8 lbs 08/27/2025 Height 65.5 in 08/27/2025 Blood pressure systolic 132 mm Hg 08/27/20 25 Blood pressure diastolic 84 mm Hg 025 BMI 32.9 kg/m2 08/27/2025 Encounters Encounter Location Date Provider Diagnosis [facility] [address] [place] [address] 08/27/2025 David Crane Well adult Z00.00 an d UTI (urinary tract infection) N39.0 Assessments Encounter Date Diagnosis (ICD Code) Assessment Notes Treatment Notes Treatment Clinical Notes Section Notes 08/27/2025 Well adult (ICD-10 - Z00.00) 08/27/2025UTI (urinary tract infection) (ICD-10 - N39.0) Plan Of Treatment Medication Medication Name Sig Start Date Stop Date Notes Lisinopril 10 MG 1 tablet Orally Once a day; Duration: 30 days 08/27/2025 levoFLOXacin 750 MG1 tablet Orally Once a day; Duration: 10 day(s)08/27/2025 Pending Test Test Name Order Date UA DIP NONAUTO WO MICRO (43847) - IN OFF ICE 08/27/2025 Progress Notes * Pallavi GRIGGS SDOB: [birth year] (60 yo F)Acc No.[id number]:08/27/2025 Progress Note 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?Reginaldo Crane ([facility]), MDDOB:1965???Age: 60 Y???Sex:FemaleDate:08/27/2025Phone:[phone]:[address], [id number] In:01:19 PM ESTCheck Out:01:56 PM EST Subjective: * Chief Complaints: * Harrison Sykes a UTI previously- did take all of the ATB, missed a day in the middle of the script but did finish out whole scriptLisinopril-said she checks it daily and if high will take a half of one * HPI: ???General:? blood pressure good at home - occ taleks 1/2 of a pill -. * ROS: ???EENT:?hearing changes?denies.?visual changes?denies. non-healing mouth sores?denies.?swollen glands or neck lumps?denies.?hoarseness?denies.?sore throat?denies.?difficulty swallowing?denies.?nose bleeds?denies.?nasal congestion?denies.?ear ache?denies.?ear discharge denies.?ringing in ears?denies.?light sensitivity?denies.?eye pain?denies.?blurring?denies.?eye irritation?denies.?double vision?denies. vision loss?denies.?General/Constitutional:?Sweats:?Denies.?Fatigue?denies.?Sleep proble ms?denies.?Anorexia?denies.?Malaise?denies.?Weight loss?denies. Fatigue or Weakness?denies.?Fever or Chills?denies.?Cardiovascular:?Shortness of Breath w/lying flat?denies.?Lightheadedne ss/dizziness?denies.?Chest tightness/ heavy pressure?denies.?Swelling of legs, a nkles, or feet?denies.?Waking up with shortness of breath?denies.?Chest pain&#16 0;denies.?Palpitations?denies.?Weight gain?denies.?Respiratory:?Chronic or frequent cough?denies.?Coughing up blood&#1 60;denies.?Difficulty breathing?denies.?Productive cough?denies.?Snoring&#1 60;denies.?Shortness of breath that awakens from sleep (PND)?denies.?Chest pain? denies.?Sputum production?denies.?Wheezing?denies.?Musculoskeletal:?Joint pain?denies.?Joint Fluid?denies.?Backpain?denies.?Knee pain?denies.?Neck pain?denies.?Joint Stiffness?denies.?Muscle cramps?denies.?Weakness of muscles?denies.?Arthritis?denies.?Muscle aches?denies.?Pain in shoulder(s)?denies.?Swollen joints?denies.? * Active Problem List Z00.00 Well adult Modified On:10/11/2023/U Status:pgwlhdnglK24.9Acute bronchiolitis Modified On:01/11/2024U Status:miqsnjzhkI05.10Atherosclerotic heart disease of [place] coronary artery without angina pectoris Modified On:01/18/2024/U Status:pdgrhvkitW87Vdfhxyiav (primary) hypertension Modified On:01/18/2024U Status:adqfansjkC53.9Heart failure, unspecified Modified On:01/18/2024U Status:urilubiszT63.00CTS (carpal tunnel syndrome) Modified On:11/12/2024U Status:etylkxrzfZ51.21Ulnar nerve compression, right Modified On:11/12/2024/U Status:xzkpwzxmgD79.9Anemia Modified On:06/15/2025U Status:confirmed * Medical History: * Surgical History: E QUE Herrera 04/11/23tubal ligamet left knee CTS right wrist/ eblow gastric sleeve right ankle * Hospitalization/Major Diagno stic Procedure: s ee above * Family History: F ather: . M other: . B sammieer(s): . S ister(s): alive.?Son(s): alive. D cesar(s): alive. 2 sister(s) - healthy. 2 son(s) , 1 daughter(s) - healthy. . * Social History: ???Tobacco Use:?Tobacco Use/Smoking?Patient is a?nonsmoker * Medications: T akingAcetaminophen Extra Strength 500 mg Tablet TAKE TWO TABLETS BY MOUTH THREE TIMES A DAY Aspirin Low Dose(Aspirin) 81 mg Tablet Chewable TAKE ONE TABLET BY MOUTH ONCE DAILY Celecoxib 200 mg Capsule TAKE ONE CAPSULE BY MOUTH ONCE DAILY Colace(Docusate Sodium) 100 MG Capsule 2 tabs Orally Once a day CVS Stool Softener(Docusate Sodium) 100 MG Capsule TAKE 1 CAPSULE BY MOUTH 1 - 2 TIMES A DAY Ferrous Sulfate 325 (65 Fe) MG Tablet 1 tablet Orally twice a day oxyBUTYnin Chloride 5 mg Tablet TAKE ONE TABLET BY MOUTH ONCE DAILY Pantoprazole Sodium 40 mg Tablet Delayed Release TAKE ONE TABLET BY MOUTH TWICE A DAY Semaglutide 2.268 mg/0.63 mL 2.268 mg/0.63 mL Soultion Auto-injector 0.63 mL Subcutaneous Once weekly Taking Acetaminophen Extra Strength 500 mg Tablet TAKE TWO TABLETS BY MOUTH THREE TIMES A DAY Taking Aspirin Low Dose(Aspirin) 81 mg Tablet Chewable TAKE ONE TABLET BY MOUTH ONCE DAILY Taking Celecoxib 200 mg Capsule TAKE ONE CAPSULE BY MOUTH ONCE DAILY Taking Colace(Docusate Sodium) 100 MG Capsule 2 tabs Orally Once a day Taking CVS Stool Softener(Docusate Sodium) 100 MG Capsule TAKE 1 CAPSULE BY MOUTH 1 - 2 TIMES A DAY Taking Ferrous Sulfate 325 (65 Fe) MG Tablet 1 tablet Orally twice a day Taking oxyBUTYnin Chloride 5 mg Tablet TAKE ONE TABLET BY MOUTH ONCE DAILY Taking Pantoprazole Sodium 40 mg Tablet Delayed Release TAKE ONE TABLET BY MOUTH TWICE A DAY Taking Semaglutide 2.268 mg/0.63 mL 2.268 mg/0.63 mL Soultion Auto-injector 0.63 mL Subcutaneous Once weekly DiscontinuedCarvedilol 12.5 MG Tablet TAKE 1 TABLET BY MOUTH TWICE A DAY Cefdinir 300 MG Capsule 2 capsules Orally once daily Lisinopril 40 mg Tablet TAKE ONE TABLET BY MOUTH ONCE DAILY Lisinopril 20 MG Tablet TAKE 1 TABLET BY MOUTH EVERY DAY Ondansetron 4 MG Tablet Disintegrating 1 tablet on the tongue and allow to dissolve Orally Q 6 hours PRN Pyridium(Phenazopyridine HCl) 200 MG Tablet 1 tablet after meals Orally Three times a day Medication List reviewed and reconciled with the patientDiscontinued Carvedilol 12.5 MG Tablet TAKE 1 TABLET BY MOUTH TWICE A DAY Discontinued Cefdinir 300 MG Capsule 2 capsules Orally once daily Discontinued Lisinopril 40 mg Tablet TAKE ONE TABLET BY MOUTH ONCE DAILY Discontinued Lisinopril 20 MG Tablet TAKE 1 TABLET BY MOUTH EVERY DAY Discontinued Ondansetron 4 MG Tablet Disintegrating 1 tablet on the tongue and allow to dissolve Orally Q 6 hours PRN Discontinued Pyridium(Phenazopyridine HCl) 200 MG Tablet 1 tablet after meals Orally Three times a day Medication List reviewed and reconciled with the patient * Allergies: N .K.D.A.no[Allergies Verified] Objective: * Vitals: W t:200.8lbs, Ht: 65.5 in, BP:132/84mm Hg, BMI:32.9Index, Ht-cm: 166.37 cm, Wt-k.08 kg. * Examination: ???Physical Exam: ?GENERAL:?well developed, well nourished, in no acute distress.?HEAD:?normocephalic/atraumatic.?EYES:?pupils equal, round and reactive to light, conjunctivae and sclerae normal.?EARS:?no deformity or lesion of external ear, canals and TM appear normal bilaterally, TM's intact, not inflamed with normal light reflex, hearing grossly normal to conversational speech.?NOSE:?no deformity, discharge, inflammation, or lesions. ?MOUTH:?mucous membranes moist, normal oropharynx and posterior pharynx without lesions or exudates, tongue normal, dentition normal.?NECK:?neck supple, no masses or palpable cervical nodes, trachea midline, thyroid without nodules, masses, tenderness, or enlargement.?CHEST:?no chest wall deformity, no chest wall tenderness. ?LUNGS:?normal respiratory effort and clear to auscultation, no wheezes, rales, or rhonchi, good air exchange.?CARDIO:?regular rate and rhythm, normal S1 and S2, nor murmur, rub, or gallop.?PULSES:?normal capillary refill.?ABDOMEN:?soft, non-distended, non-tender, no masses.?MUSCULOSKELETAL:?no deformity or scoliosis noted, normal range of motion, joints normal, no erythema, edema, effusion, or ecchymosis.?EXTREMITY:?no clubbing, cyanosis, edema, or deformity withnormal ROM in both upper and lower bilateral extremities.?NEUROLOGIC:?grossly normal.?SKIN:?no rashes, ulcerations, or suspicious lesions.?LYMPH NODES:?no cervical adenopathy, nodes normal.?MENTAL STATUS:?alert and oriented x3, normal mood and affect.? Assessment: * Assessment: 1.?Well adult - Z00.00 (Primary)???2.?UTI (urinary tract infection) - N39.0??? Plan: * Treatment: Start Lisinopril Tablet, 10 MG, 1 tablet, Orally, Once a day, 30 days, 30, Refills 11.?LAB: UA DIP NONAUTO WO MICRO (54247) - IN OFFICE (Collection Date & Time - 08/27/2025)2.?UTI (urinary tract infection)? Start levoFLOXacin Tablet, 750 MG, 1 tablet, Orally, Once a day, 10 day(s), 10.?? * Labs: * L ab: UA DIP NONAUTO WO MICRO (04311) - IN OFFICE (Collection Date & Time - 08/27/2025) ?ValueReference Range?COLORyellow * C LARITY clear * G LUCOSE n * B ILIRUBIN n * K ETONE 5 * S PECIFIC GRAVITY 1.015 * B LOOD n * P H 5 * P ROTEIN 15 * U ROBILINOGEN n * N ITRITE n * L EUKOCYTE ESTERASE 70+ * Procedure Codes: 8 1002 URINALYSIS WO MICRO * Preventive Medicine: ??Screenings/Counseling:?BMI ACTION PLAN?Above Normal BMI Follow-up?Dietary management education, guidance, and counseling * * Sign off status: CompletedVisit Status:?CHK (Check Out) true * Provider: Cha Crane ([facility])MD Date: 10/27/2024 Generated for Printing/Faxing/eTransmitting on:?09/10/2025 04:11 PM EST History and Physical Notes * HPI (History of Present Illness) CategorySub-CategoryDetailNotesCategory NotesGeneralblood pressure good at home - occ taleks 1/2 of a pill - Examination CategorySub-CategoryDetailNotesCategory NotesPhysical ExamGENERAL:well developed, well nourished, in no acute distressHEAD:normocephalic/atraumatic EYES:pupils equal, round and reactive to light, conjunctivae and sclerae normal EARS:no deformity or lesion of external ear, canals and TM appear normal bilaterally, TM's intact, not inflamed with normal light reflex, hearing grossly normal to conversational speechNOSE:no deformity, discharge, inflammation, or lesionsMOUTH:mucous membranes moist, normal oropharynx and posterior pharynx without lesions or exudates, tonguenormal, dentition normalNECK:neck supple, no masses or palpable cervical nodes, trachea midline, thyroid without nodules, masses, tenderness, or enlargementCHEST:no chest wall deformity, no chest wall tendernessLUNGS:normal respiratory effort and clear to auscultation, no wheezes, rales, or rhonchi, good air exchangeCARDIO:regular rate and rhythm, normal S1 and S2, nor murmur, rub, or gallopPULSES:normal capillary refillABDOMEN:soft, non-distended, non-tender, no massesRECTAL:MUSCULOSKELETAL:no deformity or scoliosis noted, normal range of motion, joints normal, no erythema, edema, effusion, or ecchymosisEXTREMITY:no clubbing, cyanosis, edema, or deformity with normal ROM in both upper and lower bilateral extremitiesNEUROLOGIC:grossly normalSKIN:no rashes, ulcerations, or suspicious lesionsLYMPH NODES:no cervical adenopathy, nodes normalMENTAL STATUS:alert and oriented x3, normal mood and affect
--- OUTSIDE RECORDS SUMMARY | 2025-09-10 15:20 | XMS_ITS | Encounter Summary ---
Author Organization [facility] Address [address] [place] [address] Care Team Providers Care Shop Girl Name Role Phone Reginaldo Crane MD Primary Care Provider [phone] Reason for Visit * ReasonCommentsFollow-upPatient is here today for a 3 month follow up appointment. Patient states her blood pressure is really low 100's over 70's Coronary Artery DiseaseCongestive Heart FailureHypertensionChronic Venous InsufficiencyVaricose veins of legsChest PainPatient states she has chest pain everyday, patient states it usually occurs in the morning and feels like cramps, as the day goes on it loosens up.Fatigueoccasional Encounter Details DateTypeDepartmentCare Team (Latest Contact Info)Ejkacdobaeg24/20/2025 3:20 PM ESTOffice Visit [facility] [address] [place] [address] Aly Donato, DETAIL MANAGER [address] [place] [address] Chest pain, unspecified type (Primary Dx); Coronary artery disease involving [place] coronary artery of [place] heart without angina pectoris; Chronic heart failure with preserved ejection fraction (CMS/HCC); Benign hypertensive heart disease with heart failure (CMS/HCC); Iron deficiency anemia, unspecified iron deficiency anemia type; Mixed hyperlipidemia; ETOH abuse Social History Tobacco UseTypesPacks/DayYears UsedDateSmoking Tobacco: [id number] - 2017Passive Smoke Exposure: PastSmokeless Tobacco: NeverAlcohol UseStandard Drinks/CccxVwekqfbvSzh17 (1 standard drink = 0.6 oz pure alcohol)per weekUT Safety & EnvironmentAnswerDate RecordedFear of Current or Ex-PartnerNot on file 12/13/2023Emotionally AbusedNot on file12/13/2023hysically AbusedNot on file 12/13/2023Sexually AbusedNot on file4Physically or Sexually AbusedNot on file12/13/2023CommentsUnknownSex and Gender InformationValueDate RecordedSex Assigned at YpgsaPtougw30/19/2025 3:56 PM EDTLegal SexFemale 04/20/2022 12:10 AM EDTGender QyafqoayEmrtcc25/19/2025 3:56 PM EDTSexual OrientationHeterosexual or Xzrkqobn56/19/2025 3:56 PM EDTdocumented as of this encounter Last Filed Vital Signs Vital SignReadingTime TakenCommentsBlood Donywzpq155/ 3:20 PM EST Lhuwf923309/10/2025 3:20 PM ESTTemperature--Respiratory Rate--Oxygen Saturation 100%09/10/2025 3:20 PM ESTInhaled Oxygen Concentration--Devnkl44.8 kg (198 lb) 09/10/2025 3:20 PM KNRJtchry481.6 cm (5' 6 )09/10/2025 3:20 PM ESTBody Mass Index31.9609/10/2025 3:20 PM ESTdocumented in this encounter Functional Status * BPAnswerDate of IzmqkwegmpAqxegn743/ 3:20 PM Eboni Parra MA * PulseAnswerDate of VsmcumscjdSrgkot6754/20/2025 3:20 PM Eboni Parra MA * Audit Alcohol ScreeningQuestionAnswerDate of AssessmentAuthorHow often do you have a drink containing alcohol? 3:36 PM Eboni Parra MA * Patient PositionAnswerDate of CufccqsqytUnkquyCuktnmg91/20/2025 3:20 PM EST Eboni Mo MA * BPAnswerDate of CiapwiqxbbTkuvkg635/ 3:20 PM Eboni Parra MA * PulseAnswerDate of JebywjqjaqZfcewi3785 3:20 PM Eboni Parra MA * PuR7JuaadiWmbs of NecncckzhaJupcpf57319/20/2025 3:20 PM Eboni Parra MA * BP LocationAnswerDate of AssessmentAuthorRight arm09/10/2025 3:20 PM Eboni Haskins MA * Audit Alcohol ScreeningQuestionAnswerDate of AssessmentAuthorHow often do you have a drink containing alcohol? 3:36 PM Eboni Parra MA * Patient PositionAnswerDate of JuompnbjjnFrefzeRoeslbj50/20/2025 3:20 PM Eboni Haskins MA documented as of this encounter Plan of Treatment DateTypeDepartmentCare Team (Latest Contact Info)Wedfwqcdaam41/20/2026 3:20 PM ESTOffice Visit [facility] [address] [place] [id number] Aly Donato, DETAIL MANAGER [address] [place] [address] documented as of this encounter Visit Diagnoses Diagnosis Chest pain, unspecified type- Primary Coronary artery disease involving [place] coronary artery of [place] heart without angina pectoris Chronic heart failure with preserved ejection fraction (CMS/HCC) Benign hypertensive heart disease with heart failure (CMS/HCC) Iron deficiency anemia, unspecified iron deficiency anemia type Mixed hyperlipidemia ETOH abuse Nondependent alcohol abuse, unspecified drinking behavior documented in this encounter Care Teams Team MemberRelationshipSpecialtyStart DateEnd Date Reginaldo Crane MD [address] [facility] [address] [place] [phone] PCP - General01/17/23documented as of this encounter
--- OUTSIDE RECORDS SUMMARY | 2025-09-10 16:11 | XMS_ITS | Clinical Summary ---
Author Organization [facility] Address [address] [place] [address] Care Team Providers Care Dry Curer Name Role Phone Unavailable Primary Care Provider Unavailabl e Social History Tobacco UseTypesPacks/DayYears UsedDateSmoking Tobacco: Never Assessed CommentsUnknownSex and Gender InformationValueDate RecordedSex Assigned at Not on fileLegal EchXcqmua24/15/2023 10:14 PM EDTGender IdentityNot on file Sexual OrientationNot on file Plan of Treatment Not on file
--- OUTSIDE RECORDS SUMMARY | 2025-09-10 16:11 | XMS_ITS | Clinical Summary ---
Author Organization [facility] Address [address] [place] [address] Care Team Providers Care Grocery Store Clerk Name Role Phone Reginaldo Crane MD Primary Care Provider + Octavio Celestin MD Unavailable [phone] Allergies No known active allergies Medications * This document contains information received from the source organization and may not represent a complete record from that organization. MedicationSigDispense QuantityRefillsLast FilledStart DateEnd DateStatus traMADol (ULTRAM) 50 mg tablet Active oxybutynin (DITROPAN) 5 mg tablet 02/05/2018Active amLODIPine (NORVASC) 5 mg tablet 02/04/2018Active lisinopril (ZESTRIL, PRINIVIL) 40 mg tablet 02/03/2018Active celecoxib (CELEBREX) 200 mg capsule 02/03/2018Active atorvastatin (LIPITOR) 80 mg tablet Indications:Abnormal weight gain,Preoperative testing,Snoring,Other fatigue, Sleep-disordered breathing,Hypersomnolence,Excessive daytime sleepiness, Hypertension, unspecified type,SOB (shortness of breath),Morbid obesity with BMI of 45.0-49.9, adult (HCC)Take 80 mg by mouth once daily.Active metoprolol succinate ER (TOPROL XL) 25 mg 24 hr tablet Indications:Abnormal weight gain,Preoperative testing,Snoring,Other fatigue, Sleep-disordered breathing,Hypersomnolence,Excessive daytime sleepiness, Hypertension, unspecified type,SOB (shortness of breath),Morbid obesity with BMI of 45.0-49.9, adult (HCC)Take 25 mg by mouth once daily.Active furosemide (LASIX) 20 mg tablet Indications:Abnormal weight gain,Preoperative testing,Snoring,Other fatigue, Sleep-disordered breathing,Hypersomnolence,Excessive daytime sleepiness, Hypertension, unspecified type,SOB (shortness of breath),Morbid obesity with BMI of 45.0-49.9, adult (HCC)Take 20 mg by mouth once daily.Active aspirin, enteric coated (ASPIRIN LOW DOSE) 81 mg EC tablet Indications:Abnormal weight gain,Preoperative testing,Snoring,Other fatigue, Sleep-disordered breathing,Hypersomnolence,Excessive daytime sleepiness, Hypertension, unspecified type,SOB (shortness of breath),Morbid obesity with BMI of 45.0-49.9, adult (HCC)Take 81 mg by mouth.Active Active Problems ProblemNoted DateDiagnosed WifsNguvqj16/19/0941Ldfvvvabq40/19/2018Asthma 02/07/2018Back pain02/07/2018Current egxscy0102/07/2018High blood pressure 02/07/2018History of ijhtrvhzr63/19/2018Stress Overview (02/07/2018): son in need of liver transplant, lives with the patient AnxietyBMI 40.0-44.9, adult Family History Medical HistoryRelationCommentsArthritisMotherBlood DiseaseMotherHeart disease MotherHypertensionMotherRelationStatusCommentsMother Social History Tobacco UseTypesPacks/DayYears UsedDateSmoking Tobacco: FefttyGyeqwfxkwx371 03/01/1995 - 03/01/2018Smokeless Tobacco: NeverAlcohol UseStandard Drinks/Week NqtpklobFhb18 (1 standard drink = 0.6 oz pure alcohol)PHQ-2AnswerDate Recorded PHQ-2 ivjfq435Area Deprivation IndexAnswerDate RecordedNational Score (1-100), lower number is lower riskNot on file09/26/2020State Score (1-10), lower number is lower riskNot on file09/26/2020Data from: https://www.neighborhoodatlas.medicine.[facility].edu/. Last address used for calculationNot on file09/26/2020CommentsNoSex and Gender Information ValueDate RecordedSex Assigned at BirthNot on fileLegal NysWwnima11/06/2018 12:06 PM EDTGender IdentityNot on fileSexual OrientationNot on fileOccupation IndustryJob Start DateJob End Datechild care worker in homeNot on fileNot on fileNot on file Last Filed Vital Signs Vital SignReadingTime TakenCommentsBlood Uxcgoxel289/7604 1:41 PM EDT Kqonb2463 1:41 PM EDTTemperature--Respiratory Kmob641502/07/2018 9:31 AM EDTOxygen Saturation--Inhaled Oxygen Concentration--Kawdmj610.1 kg (275 lb 14.4 oz)05/19/2019 10:01 AM KJQFdadku499 cm (5' 4.96 )05/19/2019 10:01 AM EDTBody Mass Index45.9705/19/2019 10:01 AM EDT Plan of Treatment Health MaintenanceDue DateLast DoneCommentsAnxiety Tcenxjhnu32/29/1982Depression Jijmwnlfe02/29/1982HIV Nstzdjvos25/29/1982Hepatitis C Iduujhrqa58/29/1982 Cervical Cancer Uwrthohhl88/29/1985Mammogram Rwwpnewek46/29/2004CT Colonography 2009Cologuard (FIT-DNA)03/19/20092296Opgktrqddqy66/29/2009Colorectal Cancer Dpfrhifrl80/29/2009Diabetes Ycgyrfbdv17/29/2009Fecal Occult Blood2009Lipid Dwposluye92/29/7663Uekdeleijwuqv00/29/2009Pneumococcal Vaccine: 50+ (1 of 1 - PCV)2014Shingrix Vaccine (1 of 2)2014Covid-19 Vaccine (1 - 2024- season)2025Influenza Vaccine (#1)2025DTaP,Tdap,Td Vaccine (2 - Td or Tdap)RSV Vaccine (1 - 1-dose 75+ series)2039 Insurance Care Teams Team MemberRelationshipSpecialtyStart DateEnd Date Reginaldo Crane MD PCP - GeneralFamily Medicine02/11/18 Octavio Celestin MD ReferringPain Management02/27/18
--- OUTSIDE RECORDS SUMMARY | 2025-09-10 16:11 | XMS_ITS | Patient Health Record ---
Author Organization [facility] [facility] Address [address] [place] [address] Care Team Providers Care Other Wood Processing Machine Operator Name Role Phone Reilly Holder Primary Care Provider Reason For Referral No Information Plan Of Treatment No Information Insurance Providers Payer Name Payer Address Payer Phone Subscriber Number Group Number Insured Name Patient Relationship to Insured Coverage Start Date Coverage End Date Dental CareSource [facility] [address] [place] [address] [id number] Sheri LUJAN - patient is the [id number] 2024ental Wrap [facility] CareSourcePO [address] [place] [id number], CANDYSelf - patient is the [id number] 2024
--- OUTSIDE RECORDS SUMMARY | 2025-09-10 16:11 | XMS_ITS | Clinical Summary ---
Author Organization [facility] Address [address] [place] [address] Care Team Providers Care Riprap Man Name Role Phone Reginaldo Crane MD Primary Care Provider [phone] Allergies Active AllergyReactionsCriticalityNoted QkdnUadansomBmgyfDmbjduch94/31/2023 Swelling on lips only (when she blows up balloons). Medications MedicationSigDispense QuantityRefillsLast FilledStart DateEnd DateStatus aspirin 81 mg chewable tablet CHEW 1 TABLET BY MOUTH EVERY DAYActive celecoxib (CeleBREX) 200 mg capsule Take 1 tablet by mouth in the morning.Active ferrous sulfate 325 (65 Fe) MG tablet Take 1 tablet by mouth in the morning and at bedtime.Active oxybutynin (Ditropan) 5 mg tablet Take 1 tablet by mouth in the morning.Active pantoprazole (ProtoNix) 40 mg EC tablet Take 1 tablet by mouth in the morning and at bedtime.Active tiZANidine (Zanaflex) 4 mg tablet Take 1 tablet by mouth if needed.Active diazePAM (Valium) 5 mg tablet if needed.01/10/2023ctive Linzess 72 mcg capsule Take 72 mcg by mouth in the morning.01/10/2023ctive lisinopril 40 mg tablet Take 40 mg by mouth in the morning.12/17/2022ctive docusate sodium (Colace) 100 mg capsule Take 2 capsules by mouth in the morning.06/02/2025tive acetaminophen (Tylenol) 500 mg tablet Take 2 tablets by mouth every 6 (six) hours during the day.5Active atorvastatin (Lipitor) 80 mg tablet Indications:Coronary artery disease due to lipid rich plaqueTAKE 1 TABLET BY MOUTH DAILY 28 tablet 5Active furosemide (Lasix) 20 mg tablet Indications:Benign hypertensive heart disease without congestive heart failure TAKE ONE TABLET BY MOUTH ONCE DAILY DIRECTED 90 tablet 5Active semaglutide (Ozempic) 0.25 mg or 0.5 mg (2 mg/3 mL) pen injector Inject 0.25 mg under the skin every 7 (seven) days.5Active isosorbide mononitrate ER (Imdur) 30 mg 24 hr tablet Indications:Coronary artery disease involving tuscarora coronary artery of tuscarora heart without angina pectorisTake 1 tablet (30 mg) by mouth once daily as directed. Do not crush or chew. 90 tablet 6Active furosemide (Lasix) 20 mg tablet Indications:Benign hypertensive heart disease without congestive heart failure TAKE ONE TABLET BY MOUTH ONCE DAILY DIRECTED 90 tablet Discontinued isosorbide mononitrate ER (Imdur) 30 mg 24 hr tablet Indications:Coronary artery disease involving tuscarora coronary artery of tuscarora heart without angina pectorisTake 1 tablet (30 mg) by mouth once daily as directed. Do not crush or chew. 90 tablet Discontinued(Reorder) Active Problems ProblemNoted DateDiagnosed DateAcute cpapwwjqgnssf64/20/2025ilateral carpal tunnel doigzyic87/20/2025Lesion of ulnar nerve09/10/2025Pre-op evaluation 09/10/2025Rhomboid muscle pain09/10/2025Viral URI with cough09/10/2025Iron deficiency sdyhgu0112/23/2024ervical stenosis of spinehronic venous rgeubkmuscvwe23iabetesEczema GERD (gastroesophageal reflux disease) Morbid ogwuvnq28Vitamin D nxbzbkeiny11 Varicose veins of legsnxiety01/19/2023Sleep apnea01/19/2023 BMI 40.0-44.9, adult3Coronary ktkwrnbdtidvzywg79/01/2022 Assessment & Plan (01/19/2023 3:59 PM EDT): Coronary artery disease is Without any concerning symptoms Continue goal-directed medical therapy including aspirin, Lipitor, carvedilol, lisinopril Continue heart healthy diet, regular exercise Diastolic heart jogylfn9612/20/2021 Assessment & Plan (01/19/2023 4:00 PM EDT): [facility] Continue GDMT- Lasix 20 mg daily- Diuretic therapy Monitor daily weights, I&O, fluid restriction 1.5-2L/day, renal function and electrolytes Closed bimalleolar umlfzfww92/12/2019Chronic obstructive lung kirmtux5710/08/2018 Hypertensive arhlnnvc78/18/2018 Assessment & Plan (01/19/2023 4:02 PM EDT): Hypertension is currently well controlled- 124/76 Continue all meds- lisinopril, lasix, coreg prn Zldpek5802/07/20185676Bppdacovo97/19/5022Yysmkd53/19/2018Back pain02/07/2018Current ffoivt6902/07/2018 Overview (01/19/2023): Added secondary to documentation in Social History. History of eysybyixu45/19/2018 Encounters DateTypeDepartmentCare QgogUrujkpzjnxd77/20/2025 3:20 PM ESTOffice [address] [address] Aly Donato CNP Chest pain, unspecified type (Primary Dx); Coronary artery disease involving tuscarora coronary artery of tuscarora heart without angina pectoris; Chronic heart failure with preserved ejection fraction (CMS/HCC); Benign hypertensive heart disease with heart failure (CMS/HCC); Iron deficiency anemia, unspecified iron deficiency anemia type; Mixed hyperlipidemia; ETOH abuse08/20/2025Refill [address] [address] Patrice No MD Benign hypertensive heart disease without congestive heart fwzprlp2107/24/2025 Refill [facility] [address] [facility] [address] Patrice No MD Coronary artery disease due to lipid rich opdtdt9006/15/2025 3:20 PM EDTOffice Visit [facility] [address] [place] [facility] [address] Aly Donato CNP Chest pain, unspecified type (Primary Dx); Coronary artery disease involving tuscarora coronary artery of tuscarora heart without angina pectoris; Chronic heart failure with preserved ejection fraction (CMS/HCC); Benign hypertensive heart disease with heart failure (CMS/HCC); Iron deficiency anemia, unspecified iron deficiency anemia type; Mixed hyperlipidemia; ETOH abuse06/15/2025Orders Only [facility] [address] [place] [facility] [place] [address] Aly Donato CNP from Last 3 Months Immunizations ImmunizationAdministration DatesNext DueModerna SARS-CoV-2 Opqvcyattfa71/31/2021 ,04/19/2021Tdap07/10/2021,04/14/2019 Family History RelationNameStatusCommentsFatherDeceasedMotherDeceased Social History Tobacco UseTypesPacks/DayYears UsedDateSmoking Tobacco: [id number] - 2016Passive Smoke Exposure: PastSmokeless Tobacco: Never Tobacco Cessation:Counseling Given: Not Answered Alcohol UseStandard Drinks/YknkCmiyuurwFxk75 (1 standard drink = 0.6 oz pure alcohol)per weekUT Safety & EnvironmentAnswerDate RecordedFear of Current or Ex-PartnerNot on file12/13/2023Emotionally AbusedNot on file12/13/2023hysically AbusedNot on file12/13/2023Sexually AbusedNot on file12/13/2023hysically or Sexually AbusedNot on file12/13/2023CommentsUnknownSex and Gender InformationValueDate RecordedSex Assigned at LvzyrGtlian72/19/2025 3:56 PM EDT Legal PtaBewnbk15/ 12:10 AM EDTGender GaesmmmdBjozac41/19/2025 3:56 PM EDTSexual OrientationHeterosexual or Tbjipfyu94/19/2025 3:56 PM EDT Last Filed Vital Signs Vital SignReadingTime TakenCommentsBlood Ffyqhevx267/8509/10/2025 3:20 PM EST Wppjk641509/10/2025 3:20 PM ESTTemperature--Respiratory Rate--Oxygen Saturation 100%09/10/2025 3:20 PM ESTInhaled Oxygen Concentration--Vyuwbs40.8 kg (198 lb) 09/10/2025 3:20 PM ZYWKzsbaa345.6 cm (5' 6 )09/10/2025 3:20 PM ESTBody Mass Index31.9609/10/2025 3:20 PM EST Plan of Treatment DateTypeDepartmentCare Team (Latest Contact Info)Cywvscwsctl70/20/2026 3:20 PM ESTOffice Visit [facility] [address] [place] [address] Aly Donato, CHOKER SETTER [address] [place] [address] Health MaintenanceDue DateLast DoneCommentsCT Alofkttnvrfm1964Diabetes: Hemoglobin A1C1964FIT-DNA1964FIT1964FOBT1964 Lutmxfgkrromg1964Diabetes: Retinopathy Ywybjeluj63/29/1974Depression Mmollcrpv29/29/1976Diabetes: Urine Protein Qiwcglkit22/29/1983Pneumococcal Vaccine: Pediatrics (0 to 5 Years) and At-Risk Patients (6 to 64 Years) (1 of 2 - PCV)1983Pap Smear1985Cervical Cancer Oeeeweqje92/29/1994HPV/Cotest 03/19/19946416Qvkstgbss82/29/2004Zoster Vaccines (1 of 2)2014COVID-19 Vaccine ( season)5005/21/2021, 05/21/2021, 04/19/2021, Additional history existsInfluenza Vaccine (#1)5Adult Ppgiujg68/, 07/10/2021, 04/14/20197249Szewjbrlbhk19/21/203306/olorectal Cancer Screening 04/11/2033HIB VaccinesAged OutNo longer eligible based on patient's age to complete this topicHPV VaccinesAged OutNo longer eligible based on patient's age to complete this topicIPV VaccinesAged OutNo longer eligible based on patient's age to complete this topicMeningococcal B VaccineAged OutNo longer eligible based on patient's age to complete this topicMeningococcal VaccineAged OutNo longer eligible based on patient's age to complete this topicRotavirus Vaccines Aged OutNo longer eligible based on patient's age to complete this topic Insurance Care Teams Team MemberRelationshipSpecialtyStart DateEnd Date Reginaldo Crane MD [address] [facility] [address] [address] [facility]01/17/23
--- OUTSIDE RECORDS SUMMARY | 2025-09-10 16:11 | XMS_ITS | Patient Health Record ---
Author Organization [facility] [place] Address [address] [place] [address] Care Team Providers Care Head Strength And Conditioning Coach Name Role Phone David Sotelo Primary Care Provider Allergies No Known Allergies Results Component Value Reference Range Notes UA DIP NONAUTO WO MICRO (810 02) - IN OFFICE (Not yet reviewed by provider) Interpretation: Performing Lab: Notes/Report: COLOR yellow RQXCNSDczsqhNHKPTLUjMXKIVPONMrRBENPW6FBBJXIQS GRAVITY1.642QAHFTlBF6QUCZPLW27 UROBILINOGENnNITRITEnLEUKOCYTE LHPXBNFT19+PROF 14(COMP METB) Reviewed date:11/30/2024 11:17:27 AM Interpretation: Performing Lab: Notes/Report: [facility] ,Nuxqji805687-707 mmol/LPotassium4.83.5-5.1 mmol/DZtwijasu48490-909 mmol/LCarbon Vtfkdub06.721.0-32.0 mmol/LAnion Gap13.8Imvvluu4680-529 mg/dLBlood Urea Nitrogen 28.07.0-18.0 mg/dLCreatinine1.050.55-1.02 mg/dLEstimated GFR ( Stacy>60 >=60 mL/min/1.73m 2Estimated GFR (Non- Ame53>=60 mL/min/1.73m 2BUN Creatinine Ratio26.1Xgttqez4.58.5-10.1 mg/dLBilirubin Total0.30.2-1.0 mg/dL Aspartate Amino Xekcbqvaxdg2388-85 U/LAlanine Czgifiiisqljvwla1448-18 U/L Alkaline Uivdqhlvqru0255-085 U/LTotal Protein7.06.4-8.2 g/dLAlbumin Level3.33.4- 5.0 g/dLGlobulin3.7Albumin Globulin Ratio0.9Performing Lab:see noteML - [facility] LBTroponin I High Sensitivity Reviewed date:11/30/2024 11:17:27 AM Interpretation: Performing Lab: Notes/Report: [facility] ,Troponin I High Sensitivity8.54.0-51.3 pg/mL DIAGNOSIS. PERCENTILE OF cTnI DISTRIBUTION IN A REFERENCE POPULATION, UNIVERSAL DEFINITION OF MYOCARDIAL INFARCTION. THE UPPER HAS BEEN CONFIRMED THE DECISION THRESHOLD FOR ME WITH OTHER DIAGNOSTIC AND CLINICAL INFORMATION. REFERENCE LIMIT (URL) OF TROPONIN, DEFINED THE 99TH USED IN ISOLATION BUT SHOULD BE INTERPRETED IN CONJUNCTION NOTE: HIGH-SENSITIVITY TROPONIN ASSAY IS NOT INTENDED TO BE CUT-OFF POINTS HAVE BEEN ESTABLISHED BASED ON THE FOURTH 99TH PERCENTILE = 51.4 PG/ML Performing Lab:see noteML - [facility] LBXR chest 1V Reviewed date:11/30/2024 11:17:27 AM Interpretation: Performing Lab: Notes/Report: Source Facility: [place] [address] XRay Report Signed Patient: KAMILA GRIGGS MR#: [id number] : 1965 Acct:[id number] Age/Sex: 59 / F ADM Date: 11/29/24 Loc: ER Attending Dr: Ordering Physician: Courtney Pastor Date of Service: 11/29/24 Procedure(s): XR chest 1V Accession Number(s): [id number] cc: Winston Sotelo M.D.; Courtney Pastor [place] [address] Patient Name: KAMILA GRIGGS MRN: [id number] date: 1965 Sex: F Assigned Patient Location: ER Current Patient Location: Accession/Order Number: [id number] Exam Date: 11/29/2024 14:32 Report Date: 11/29/2024 [...] Trinidad M.D. Signed By: 11/29/24 1620 DD/ 1611 TD/TT: Flight Manager:DUNCAN RANDOM W or MICROSCOPIC Reviewed date:12/15/2024 08:20:44 PM Interpretation: Performing Lab: Notes/Report: [facility] ,Color UrineLT. YELLOWYELLOWClarity UrineCLOUDYCLEARSpecific [place]man Urine1.025 1.005-1.025pH Urine5.55.0-9.0Protein UrineTRACENEG/TRACE mg/dLGlucose Urine UA NEGATIVENEGATIVE mg/dLBilirubin UrineNEGATIVENEGATIVEKetones UrineNEGATIVE NEGATIVE mg/dLBlood UrineTRACE-INEGATIVENitrite UrinePOSITIVENEGATIVE Urobilinogen Urine0.20.2-1.0 EU/dLLeukocyte Esterase UrineMODERATENEGATIVEWBC Upmbo31-084QOJC SEEN #/HPFRBC Urine2-50-2 #/HPFBacteria UrineSMALLNONE SEEN #/HPFMucus UrineNONE SEENNONE SEENSquamous Epithelial Cell UrineRARENONE/RARE #/LPFCrystals Seen?None SeenNone Seen #/HPFCast Seen?NONE SEENNONE SEEN #/LPF Urine Culture IndicatedALREADY ORDEREDPerforming Lab:see noteML - [facility] LBUrine Culture - [facility] [place] Reviewed date:12/18/2024 07:50:22 PM Interpretation: Performing Lab: Notes/Report: [facility] ,[facility] For Report SEE See Scanned Report^See Scanned Report [place]rine Culture [place] [facility] [place] Performing Lab:see noteML - [facility] LBCA echo doppler complete Reviewed date:01/18/2025 04:04:04 PM Interpretation: Performing Lab: Notes/Report: Source Facility: [place] [address] [place] [address] Cardiology Report Signed Patient: KAMILA GRIGGS MR#: [id number] : 1965 Acct:[id number] Age/Sex: 59 / F ADM Date: 01/15/25 Loc: CARD Attending Dr: Patrice Ochoa M.D. Ordering Physician: Patrice Ochoa M.D. Date of Service: 01/15/25 Procedure(s): CA echo doppler complete Accession Number(s): [id number] cc: Patrice Ochoa M.D.; Winston Sotelo M.D. Patient Name: KAMILA GRIGGS MR#: [id number] : 1965 Exam Date: 01/15/2025 Ordering Doctor: [...] JEFFERSON Signed By: 01/16/251711 DD/ 09 TD/TT: Flight Manager:CBC AUTO DIFF Reviewed date:05/26/2025 02:45:21 PM Interpretation: Performing Lab: Notes/Report: [facility] ,White Blood Count5.44.0-11.0 10 3/uLRed Blood Count3.604.20-5.40 10 6/uL Rgxeoweyes31.912.0-16.0 g/nWMewzreysvk03.436.0-48.0 %Mean Corpuscular Qleqss64.3 81.0-99.0 fLMean Corpuscular Idupjvyycv24.126.7-34.0 pgMean Corpuscular HGB Conc 33.629.9-35.2 g/dLRed Cell Distribution Width12.311.0-15.0 %Platelet Rcflo523 150-450 10 3/uLMean Platelet Volume9.39.5-13.5 fLNeutrophils Percent Auto62.5 43.0-75.0 %Lymphocytes Percent Auto25.520.5-60.0 %Monocytes Percent Auto9.31.7- 12.0 %Eosinophils Percent Auto1.90.9-7.0 %Basophils Percent Auto0.60.2-2.0 % Immature Granulocytes Pct Auto0.20.0-0.5 %Neutrophils Absolute Auto3.41.4-6.5 10 3/uLLymphocytes Absolute Auto1.41.2-3.8 10 3/uLMonocytes Absolute Auto0.50.3- 0.8 10 3/uLEosinophils Absolute Auto0.10.0-0.7 10 3/uLBasophils Absolute Auto0.0 0.0-0.1 10 3/uLImmature Granulocytes Abs Auto0.010.00-0.03 10 3/uLPerforming Lab:see noteML - [facility] LBMAGNESIUM Reviewed date:05/26/2025 02:45:21 PM Interpretation: Performing Lab: Notes/Report: [facility] ,Magnesium2.11.8-2.4 mg/dLPerforming Lab:see noteML - [facility] LB PROF 14(COMP METB) Reviewed date:05/26/2025 02:45:21 PM Interpretation: Performing Lab: Notes/Report: [facility] ,Bxjgoy379358-502 mmol/LPotassium4.43.5-5.1 mmol/QIfclvxwh73410-833 mmol/LCarbon Meofqap93.021.0-32.0 mmol/LAnion Gap12.0Tvxlnxk20073-873 mg/dLBlood Urea Rletbqvi81.07.0-18.0 mg/dLCreatinine1.050.55-1.02 mg/dLEstimated GFR ( Stacy>60>=60 mL/min/1.73m 2Estimated GFR (Non- Ame53>=60 mL/min/1.73m 2 BUN Creatinine Ratio37.5Xhoziou6.08.5-10.1 mg/dLBilirubin Total0.50.2-1.0 mg/dL Aspartate Amino Tfrkctasogp6384-14 U/LAlanine Qsxgrywazqfnxluc7065-27 U/L Alkaline Mndfnkkiefi2196-273 U/LTotal Protein7.26.4-8.2 g/dLAlbumin Level3.83.4- 5.0 g/dLGlobulin3.4Albumin Globulin Ratio1.1Performing Lab:see note - [facility] LBTroponin I High Sensitivity Reviewed date:05/26/2025 02:45:21 PM Interpretation: Performing Lab: Notes/Report: [facility] ,Troponin I High Sensitivity5.24.0-51.3 pg/mL HAS BEEN CONFIRMED THE DECISION THRESHOLD FOR ME CUT-OFF POINTS HAVE BEEN ESTABLISHED BASED ON THE FOURTH NOTE: HIGH-SENSITIVITY TROPONIN ASSAY IS NOT INTENDED TO BE PERCENTILE OF cTnI DISTRIBUTION IN A REFERENCE POPULATION, REFERENCE LIMIT (URL) OF TROPONIN, DEFINED THE 99TH DIAGNOSIS. UNIVERSAL DEFINITION OF MYOCARDIAL INFARCTION. THE UPPER WITH OTHER DIAGNOSTIC AND CLINICAL INFORMATION. USED IN ISOLATION BUT SHOULD BE INTERPRETED IN CONJUNCTION 99TH PERCENTILE = 51.4 PG/ML Performing Lab:see note - [facility] LBECG 12 lead Reviewed date:05/27/2025 12:33:39 PM Interpretation: Performing Lab: Notes/Report: Source [facility] [place] [address] [place] [address] Electrocardiograph Report Signed Patient: KAMILA GRIGGS MR#: [id number] : 1965 Acct:[id number] Age/Sex: 60 / F ADM Date: 05/26/25 Loc: ER Attending Dr: Ordering Physician: Courtney Pastor Date of Service: 05/26/25 Procedure(s): ECG 12 lead Accession Number(s): [id number] cc: [facility] Test Date: 2025-05-26 Pat Name: KAMILA GRIGGS Department: Room: - Gender: Female Liner Roll Changer: : 1965 Requested By: WINSTON SOTELO Order Number: [id number] Reading MD: VERA JFEFERSON M.D. Measurements Intervals Shiner Rate: 78 P: 70 TX: 162 QRS: 55 QRSD: 76 T: 56 QT: 354 QTc: 388 Interpretive Statements 1100 Sinus rhythm 9110 normal ECG Compared to ECG 11/29/2024 14:12:01 No significant changes Electronically Signed On 05-27-2025 6:53:11 EDT by VERA JEFFERSON M.D. Dictated By: VERA JEFFERSON Signed By: 05/27/25 0653 DD/ 1229 TD/TT: Flight Manager:XR chest 1V Reviewed date:05/26/2025 02:45:21 PM Interpretation: Performing Lab: Notes/Report: Source Facility: [place] [address] XRay Report Signed Patient: KAMILA GRIGGS MR#: [id number] : 1965 Acct:[id number] Age/Sex: 60 / F ADM Date: 05/26/25 Loc: ER Attending Dr: Ordering Physician: Courtney Pastor Date of Service: 05/26/25 Procedure(s): XR chest 1V Accession Number(s): [id number] cc: Winston Sotelo M.D.; Courtney Pastor [place] [address] Patient Name: KAMILA GRIGGS MRN: [id number] date: 1965 Sex: F Assigned Patient Location: ER Current Patient Location: ER Accession/Order Number: [id number] Exam Date: 05/26/2025 13:28 Report Date: 05/26/2025 [...] Jr., D.O. 05/26/2025 1:28 PM Dictation Location: [place] [address] Electronically authenticated by: [id number] Y Date: 05/26/2025 13:28 Dictated By: Chris Tuttle M.D. Signed By: 05/26/25 1331 DD/ 1328 TD/TT: Flight Manager:Troponin I High Sensitivity Reviewed date:05/26/2025 02:45:21 PM Interpretation: Performing Lab: Notes/Report: [facility] ,Troponin I High Sensitivity5.04.0-51.3 pg/mL HAS BEEN CONFIRMED THE DECISION THRESHOLD FOR ME DIAGNOSIS. CUT-OFF POINTS HAVE BEEN ESTABLISHED BASED ON THE FOURTH USED IN ISOLATION BUT SHOULD BE INTERPRETED IN CONJUNCTION WITH OTHER DIAGNOSTIC AND CLINICAL INFORMATION. NOTE: HIGH-SENSITIVITY TROPONIN ASSAY IS NOT INTENDED TO BE REFERENCE LIMIT (URL) OF TROPONIN, DEFINED THE 99TH PERCENTILE OF cTnI DISTRIBUTION IN A REFERENCE POPULATION, 99TH PERCENTILE = 51.4 PG/ML UNIVERSAL DEFINITION OF MYOCARDIAL INFARCTION. THE UPPER Performing Lab:see noteML - [facility] LBCBC AUTO DIFF Reviewed date:06/15/2025 12:25:33 PM Interpretation: Performing Lab: Notes/Report: [facility] ,White Blood Count4.84.0-11.0 10 3/uLRed Blood Count3.514.20-5.40 10 6/uL Ndyeiyxfxd75.612.0-16.0 g/pYEfmyxznvyq79.536.0-48.0 %Mean Corpuscular Alwzdu22.3 81.0-99.0 fLMean Corpuscular Lxqninemwi59.026.7-34.0 pgMean Corpuscular HGB Conc 33.629.9-35.2 g/dLRed Cell Distribution Width12.311.0-15.0 %Platelet Rhedb532 150-450 10 3/uLMean Platelet Volume9.39.5-13.5 fLNeutrophils Percent Auto55.8 43.0-75.0 %Lymphocytes Percent Auto33.520.5-60.0 %Monocytes Percent Auto8.01.7- 12.0 %Eosinophils Percent Auto1.70.9-7.0 %Basophils Percent Auto0.80.2-2.0 % Immature Granulocytes Pct Auto0.20.0-0.5 %Neutrophils Absolute Auto2.71.4-6.5 10 3/uLLymphocytes Absolute Auto1.61.2-3.8 10 3/uLMonocytes Absolute Auto0.40.3- 0.8 10 3/uLEosinophils Absolute Auto0.10.0-0.7 10 3/uLBasophils Absolute Auto0.0 0.0-0.1 10 3/uLImmature Granulocytes Abs Auto0.010.00-0.03 10 3/uLPerforming Lab:see noteML - [facility] LBFREE T3 Reviewed date:06/15/2025 12:25:33 PM Interpretation: Performing Lab: Notes/Report: [facility] ,Free T32.632.18-3.98 pg/mLPerforming Lab:see noteML - [facility] LB GLYCOHEMOGLOBIN A1C Reviewed date:06/15/2025 03:57:49 PM Interpretation: Performing Lab: Notes/Report: [facility] ,Glycohemoglobin A1C4.74.5-6.2 % ADA RECOMMENDED LIMIT 4.0 - 6.0 ACTION SUGGESTED ADA THERAPEUTIC TARGET < 7.0 > 7.0 Estimated Average Qzfcfyy87Qyrlyludxl Lab:see noteML - [facility] LB INSULIN Reviewed date:06/16/2025 08:02:34 PM Interpretation: Performing Lab: Notes/Report: [facility] ,Insulin7.22.6-24.9 uIU/mL [address], [place] [id number] Affiliate Marketing Manager: Shawn Franco PhD, Phone: [phone] Performed at: [facility] Performing Lab:see noteLC - [facility] LBLIPID PROFILE Reviewed date:06/15/2025 12:25:33 PM Interpretation: Performing Lab: Notes/Report: [facility] ,Apbncdnjswvac852<=150 mg/eLSukypffuzaz224<=200 mg/dLHDL Qtkxezgvfoj4442-05 mg/dL <40 mg/dl - HIGH CARDIOVASCULAR RISK > or =60 mg/dl - LOW CARDIOVASCULAR RISK LDL Cholesterol Nnnpyyguio21.0 100-129 mg/dl NEAR OR ABOVE OPTIMAL 130-159 mg/dl BORDERLINE HIGH <100 mg/dl OPTIMAL 160-189 mg/dl HIGH >190 mg/dl VERY HIGH VLDL ACHKPQLZEQD21.8Chol HDL Ratio1.8 7.1 - 11.0 MODERATE RISK 4.4 - 7.1 AVERAGE RISK 3.3 - 4.4 LOW RISK >11.0 HIGH RISK Performing Lab:see noteML - [facility] LBPROF 14(COMP METB) Reviewed date:06/15/2025 12:25:33 PM Interpretation: Performing Lab: Notes/Report: [facility] ,Bbmibv880037-453 mmol/LPotassium4.73.5-5.1 mmol/SPhfifyny78311-481 mmol/LCarbon Omdbltl57.821.0-32.0 mmol/LAnion Gap9.8Osjwbjl2112-258 mg/dLBlood Urea Nitrogen 27.07.0-18.0 mg/dLCreatinine0.920.55-1.02 mg/dLEstimated GFR ( Stacy>60 >=60 mL/min/1.73m 2Estimated GFR (Non- Karime>60>=60 mL/min/1.73m 2BUN Creatinine Ratio29.7Hmyehvs2.88.5-10.1 mg/dLBilirubin Total0.70.2-1.0 mg/dL Aspartate Amino Tuzhetkgmhz2774-75 U/LAlanine Qvbxpfkqtufnauct7325-83 U/L Alkaline Nwmwaeryrpg3345-050 U/LTotal Protein7.16.4-8.2 g/dLAlbumin Level3.73.4- 5.0 g/dLGlobulin3.4Albumin Globulin Ratio1.1Performing Lab:see noteML - [facility] LBT4 Reviewed date:06/15/2025 12:25:33 PM Interpretation: Performing Lab: Notes/Report: [facility] ,T4 Thyroxine5.504.80-13.90 ug/dLPerforming Lab:see noteML - [facility] LBTSH Reviewed date:06/15/2025 12:25:33 PM Interpretation: Performing Lab: Notes/Report: [facility] ,Thyroid Stimulating Hormone1.6030.358-3.740 uIU/mLPerforming Lab:see noteML - [facility] LBCBC AUTO DIFF Reviewed date:07/08/2025 05:54:15 PM Interpretation: Performing Lab: Notes/Report: [facility] ,White Blood Count4.84.0-11.0 10 3/uLRed Blood Count3.304.20-5.40 10 6/uL Cwynxbcjqz90.212.0-16.0 g/kUAyimkuzosx38.536.0-48.0 %Mean Corpuscular Hikgks69.5 81.0-99.0 fLMean Corpuscular Avdoujsfeh28.926.7-34.0 pgMean Corpuscular HGB Conc 34.529.9-35.2 g/dLRed Cell Distribution Width12.411.0-15.0 %Platelet Wefuc004 150-450 10 3/uLMean Platelet Volume9.39.5-13.5 fLNeutrophils Percent Auto55.4 43.0-75.0 %Lymphocytes Percent Auto32.420.5-60.0 %Monocytes Percent Auto10.21.7- 12.0 %Eosinophils Percent Auto1.00.9-7.0 %Basophils Percent Auto0.80.2-2.0 % Immature Granulocytes Pct Auto0.20.0-0.5 %Neutrophils Absolute Auto2.71.4-6.5 10 3/uLLymphocytes Absolute Auto1.61.2-3.8 10 3/uLMonocytes Absolute Auto0.50.3- 0.8 10 3/uLEosinophils Absolute Auto0.10.0-0.7 10 3/uLBasophils Absolute Auto0.0 0.0-0.1 10 3/uLImmature Granulocytes Abs Auto0.010.00-0.03 10 3/uLPerforming Lab:see noteML - [facility] LBECG 12 lead Reviewed date:11/30/2024 11:17:27 AM Interpretation: Performing Lab: Notes/Report: Source Facility: [facility] [place] [address] [place] [address] Electrocardiograph Report Signed Patient: KAMILA GRIGGS MR#: [id number] : 1965 Acct:[id number] Age/Sex: 59 / F ADM Date: 11/29/24 Loc: ER Attending Dr: Ordering Physician: Courtney Pastor Date of Service: 11/29/24 Procedure(s): ECG 12 lead Accession Number(s): [id number] cc: [facility] Test Date: 2024-11-29 Pat Name: KAMILA GRIGGS Department: Room: - Gender: Female Liner Roll Changer: : 1965 Requested By: WINSTON SOTELO Order Number: [id number] Reading MD: WINSTON SOTELO Measurements Intervals Shiner Rate: 72 P: 67 TX: 168 QRS: 50 QRSD: 78 T: 45 QT: 376 QTc: 400 Interpretive Statements 1100 Sinus rhythm 9110 normal ECG Compared to ECG 12/06/2021 17:47:28 No significant changes Electronically Signed On 11-30-2024 11:07:00 EST by WINSTON SOTELO Dictated By: Winston Sotelo M.D. Signed By: 11/30/24 1107 DD/ 1412 TD/TT: Flight Manager:CBC AUTO DIFF Reviewed date:11/30/2024 11:17:27 AM Interpretation: Performing Lab: Notes/Report: [facility] ,White Blood Count3.34.0-11.0 10 3/uLRed Blood Count3.394.20-5.40 10 6/uL Gkihyxfpjv08.012.0-16.0 g/yHYyyqxarapw51.636.0-48.0 %Mean Corpuscular Fvjoxy10.1 81.0-99.0 fLMean Corpuscular Dpslyaaios00.426.7-34.0 pgMean Corpuscular HGB Conc 32.729.9-35.2 g/dLRed Cell Distribution Width13.111.0-15.0 %Platelet Lyyja799 150-450 10 3/uLMean Platelet Volume9.49.5-13.5 fLNeutrophils Percent Auto47.3 43.0-75.0 %Lymphocytes Percent Auto41.020.5-60.0 %Monocytes Percent Auto10.51.7- 12.0 %Eosinophils Percent Auto0.60.9-7.0 %Basophils Percent Auto0.30.2-2.0 % Immature Granulocytes Pct Auto0.30.0-0.5 %Neutrophils Absolute Auto1.61.4-6.5 10 3/uLLymphocytes Absolute Auto1.41.2-3.8 10 3/uLMonocytes Absolute Auto0.40.3- 0.8 10 3/uLEosinophils Absolute Auto0.00.0-0.7 10 3/uLBasophils Absolute Auto0.0 0.0-0.1 10 3/uLImmature Granulocytes Abs Auto0.010.00-0.03 10 3/uLPerforming Lab:see noteML - [facility] LBBox Test Reviewed date:10/18/2024 08:39:59 PM Interpretation: Performing Lab: Notes/Report: URINE CULTURE [facility] ,BOX Test Sent OutURINEBOX Test Reference LabFIRELANDSBOX Test Date Sent10/16/24 BOX Test ResultSEE SCANNED REPORTPerforming Lab:see noteML - [facility] LBUA RANDOM W or MICROSCOPIC Reviewed date:10/16/2024 06:01:56 PM Interpretation: Performing Lab: Notes/Report: [facility] ,Color UrineLT. YELLOWYELLOWClarity UrineCLEARCLEARSpecific [place] Urine1.020 1.005-1.025pH Urine6.05.0-9.0Protein UrineNEGATIVENEG/TRACE mg/dLGlucose Urine UANEGATIVENEGATIVE mg/dLBilirubin UrineNEGATIVENEGATIVEKetones UrineNEGATIVE NEGATIVE mg/dLBlood UrineNEGATIVENEGATIVENitrite UrineNEGATIVENEGATIVE Urobilinogen Urine0.20.2-1.0 EU/dLLeukocyte Esterase UrineNEGATIVENEGATIVEWBC UrineNONE SEENNONE SEEN #/HPFRBC UrineNONE SEEN0-2 #/HPFBacteria UrineTRACENONE SEEN #/HPFMucus UrineTRACENONE SEENSquamous Epithelial Cell UrineRARENONE/RARE #/LPFCrystals Seen?None SeenNone Seen #/HPFCast Seen?SEENNONE SEEN #/LPFHyaline Casts UrineRAREUrine Culture IndicatedALREADY ORDEREDPerforming Lab:see noteML - [facility] Reason For Referral Diagnosis 1 CTS (carpal tunnel s yndrome) (G56.00) Referral Organization [facility] Medicine Referring Provider First Name David Referring Provider Last Name Royce Referring Provider Speciality Family [facility] icine Referred Provider [facility], [facility] erapy Referred Provider Specialty Occupational Therapy Referral Priority Routine Medications Medication SIG (Take, Route, Frequency, Duration) Notes Start Date End Date Status Lisinopril 10 MG 1 tablet Orally Once a day; Dur ation: 30 days 5ActiveoxyBUTYnin Chloride 5 mgTAKE ONE TABLET BY MOUTH ONCE DAILY; Duration: 28ActivelevoFLOXacin 750 MG1 tablet Orally Once a day; Duration: 10 day(s)5ActiveFerrous Sulfate 325 (65 Fe) MG1 tablet Orally twice a day; Duration: 30 daysActiveCelecoxib 200 mgTAKE ONE CAPSULE BY MOUTH ONCE DAILY; Duration: 28ActivePantoprazole Sodium 40 mgTAKE ONE TABLET BY MOUTH TWICE A DAY; Duration: 28ActiveAcetaminophen Extra Strength 500 mgTAKE TWO TABLETS BY MOUTH THREE TIMES A DAY; Duration: 28ActiveColace 100 MG2 tabs Orally Once a day; Duration: 30 daysActiveSemaglutide 2.268 mg/0.63 mL 2.268 mg/0.63 mL0.63 mL Subcutaneous Once weekly; Duration: 30 days5ActiveAspirin Low Dose 81 mgTAKE ONE TABLET BY MOUTH ONCE DAILY; Duration: 28ActiveCVS Stool Softener 100 MGTAKE 1 CAPSULE BY MOUTH 1 - 2 TIMES A DAY; Duration: 90 daysActive Immunizations Vaccine Route Administration Date Status Comme nts MMR II Unknown 03/03/2024 Administered SARS-COV-2 (COVID 19 Moderna - Booster 0.25mL)Tdpudfa0704/19/2021dministered SARS-COV-2 (COVID 19 Moderna - Booster 0.25mL)Ivhgdsv93/31/2021AdministeredTdap (Adacel)Tvhrlhc8704/14/2019AdministeredTdap (Adacel)Auwfwjl0607/10/2021dministered Tdap (Adacel)Uzjgvou90/16/2023Administered Social History Tobacco Use: Social History Observation Description Date Details (start date - stop date) Never Smoker NA - NA Tobacco Use/Smoking Question Answer Notes Patient is a nonsmoker Alcohol Screen (Audit-C) Question Answer Notes Did you have a drink containing alcohol in the p ast year? Yes How often did you have 6 or more drinks on one occasion in the past year?Never (0 point)How many drinks did you have on a typical day when you were drinking in the past year?1 or 2 drinks (0 point)How often did you have a drink containing alcohol in the past year?Weekly (3 points)Zvlwco9AtfbelnwalxnnwNeboathsPXBEJ-P (Standard) Question Answer Notes Did you have a drink containing alcohol in the p ast year? Yes How often did you have six or more drinks on one occasion in the past year?Never (0 point)How many drinks did you have on a typical day when you were drinking in the past year?3 or 4 drinks (1 point)How often did you have a drink containing alcohol in the past year?2 to 4 times a month (2 points)Points3 InterpretationPositive Problems Problem Type SNOMED Code ICD Code Onset Dates Problem Status W/U Status Risk Notes Problem Essential hypertension (54116103 ) Essential (primary) hypertension (I10) ActiveconfirmedProblemAtherosclerotic heart disease of [place] coronary artery without angina pectoris (895196761245028)Atherosclerotic heart disease of [place] coronary artery without angina pectoris (I25.10)ActiveconfirmedProblemHeart failure (48911478)Heart failure, unspecified (I50.9)ActiveconfirmedProblemAnemia (696257107)Anemia (D64.9)ActiveconfirmedProblemWell adult (761849599)Well adult (Z00.00)ActiveconfirmedProblemLesion of ulnar nerve (964800214)Ulnar nerve compression, right (G56.21)ActiveconfirmedProblemCarpal tunnel syndrome (09324840)CTS (carpal tunnel syndrome) (G56.00)ActiveconfirmedProblemAcute bronchiolitis (9355958)Acute bronchiolitis (J21.9)Activeconfirmed Vital Signs Temperature 98.4 degrees Fahrenheit 12/01/2024 Blood pressure mm Hg08/27/20253630Qgnpfi92.5 in08/27/2025lood pressure bternurb768 mm Hg08/27/20253477Oqhvxf391.8 lbs110/27/2024BMI32.9 kg/m208/27/2025 Encounters Encounter Location Date Provider Diagnosis [facility] [address] [place] [address] 07/08/2025 David Hoy Anemia D64.9 [facility] [address] [place] [address] 07/14/2025 David Hoy [facility] [place] [address] 07/28/2025[facility] [place] [address]/05/2025[facility] [place] [address]/01/2025[facility] [place] [address]/[facility] [facility] [place] [address]/Doug HoyCTS (carpal tunnel syndrome) G56.00[facility] [place] [address]/Doug HoyDysuria R30.0[facility] [place] [address]/02/2025[facility] [place] [address]/ David HoyAnemia D64.9[facility] [place] [address]/4[facility] [place] [address]/[facility] [place] [address]/Doug Hoy Unspecified symptoms and signs involving the genitourinary system R39.9[facility] [place] [address]/ [facility] [place] [address]/[facility] [place] [address]/11/2024[facility] [place] [address]/4Doug HoyUnspecified symptoms and signs involving the genitourinary system R39.9[facility] [address] [place] [address]/07/2025Doug HoyDysuria R30.0 and UTI (urinary tract infection), uncomplicated N39.0[facility] [place] [address]/03/2025Doug HoyWell adult Z00.00 and UTI (urinary tract infection) N39.0[facility] [address] [place] [address]/Doug HoyCTS (carpal tunnel syndrome) G56.00 ; Ulnar nerve compression, right G56.21 and Well adult Z00.00 Assessments Encounter Date Diagnosis (ICD Code) Assessment Notes Treatment Notes Treatment Clinical Notes Section Notes 11/12/2024 CTS (carpal tunnel syndrome) (IC D-10 - G56.00) 11/12/2024Ulnar nerve compression, right (ICD-10 - G56.21)08/27/2025Well adult (ICD-10 - Z00.00)08/27/2025UTI (urinary tract infection) (ICD-10 - N39.0) 09/12/2024Unspecified symptoms and signs involving the genitourinary system (ICD-10 - R39.9)12/15/2024Unspecified symptoms and signs involving the genitourinary system (ICD-10 - R39.9)04/13/2025TS (carpal tunnel syndrome) (ICD-10 - G56.00)05/21/2025Dysuria (ICD-10 - R30.0)06/15/2025nemia (ICD-10 - D64.9)07/08/2025nemia (ICD-10 - D64.9)12/01/2024Dysuria (ICD-10 - R30.0) 12/01/2024UTI (urinary tract infection), uncomplicated (ICD-10 - N39.0) 11/12/2024Well adult (ICD-10 - Z00.00) Plan Of Treatment Pending Test Test Name Order Date CMP (COMPLETE METABOLIC PANEL) UA (URINALYSIS, COMPLETE) 09/12/2024 UA (URINALYSIS, COMPLETE) 12/15/2024 HEMOGLOBIN A1C (GLYCO) 10/11/2023 HEMOGLOBIN A1C (GLYCO) 11/12/2024 IRON, TOTAL 10/11/2023 LIPID PANEL (CHOL/TRIG/HDL/LDL) 10/11/20 LIPID PANEL (CHOL/TRIG/HDL/LDL) 11/12/19 25 CBC WITH DIFF 11/12/2024 CBC WITH DIFF 10/11/2023 MAMM Mammograms CAD 10/11/2023 UA DIP NONAUTO WO MICRO (63050) - IN OFF ICE 08/27/2025 Urine Culture 12/15/2024 Urine Culture 09/12/2024 Insulin Level 11/12/2024 Insulin Level 10/11/2023 CBC W/AUTO DIFF 06/15/2025 CBC W/AUTO DIFF 07/08/2025 CBC AUTO DIFF 12/18/2023 CBC AUTO DIFF 12/06/2023 IRON 07/08/2025 THYROID PANEL (T4/TSH/FREE T3) 5 THYROID PANEL (T4/TSH/FREE T3) 3 MM screening mammo BI 11/12/2024 CMP (COMP MET MARTINEZ) w/eGFR CKD-EPI 2024 Insurance Providers Payer Name Payer Address Payer Phone Subscriber Number Group Number Insured Name Patient Relationship to Insured Coverage Start Date Coverage End Date [employer] [place] [employer] [address] [place] [address] [id number] Glendy Griggself - patient is the insured Medical (General) History Medical History History ICD Code Hypertension I10 Surgical History Surgery Date(Month/Year) EGD Dr. Herrera 04/11/23 tubal ligamet left kneeCTS right wrist/ eblowgastric sleeveright ankleHospitalization History Reason Date(Month/Year) see above
--- OUTSIDE RECORDS SUMMARY | 2025-09-10 16:11 | XMS_ITS | Clinical Summary ---
Author Organization [facility] Address [address] [place] [address] Phone Care Team Providers Care Chief Diversity Officer Name Role Phone Unavailable Primary Care Provider Unavailabl e Social History Tobacco UseTypesPacks/DayYears UsedDateSmoking Tobacco: Never Assessed CommentsUnknownSex and Gender InformationValueDate RecordedSex Assigned at Not on fileLegal GfaSvbfwe86/25/2022 9:46 PM ESTGender IdentityNot on fileSexual OrientationNot on file Plan of Treatment Not on file
[2025-09-10 16:24] LABS: Hematocrit 36.0 % (36.0-48.0); Hemoglobin 11.7 g/dL (12.0-16.0); Immature Granulocytes Abs Auto 0.01 10^3/uL (0.00-0.03); Immature Granulocytes Pct Auto 0.2 % (0.0-0.5); Lymphocytes Absolute Auto 1.6 10^3/uL (1.2-3.8); Mean Corpuscular HGB Conc 32.5 g/dL (29.9-35.2); Mean Corpuscular Hemoglobin 32.6 pg (26.7-34.0); Mean Corpuscular Volume 100.3 fL (81.0-99.0); Platelet Count 217 10^3/uL (150-450); Red Blood Count 3.59 10^6/uL (4.20-5.40); White Blood Count 5.2 10^3/uL (4.0-11.0)
[2025-09-10 17:08] LABS: Iron 71.0 ug/dL (50.0-170.0)
== END 2025-09-10 16:07 | disposition home or self-care (01) ==
LOC: LAB 16:07
PROVIDERS: PCP Family Medicine; Visit Provider Family Medicine
DX: D64.9 Anemia, unspecified (principal)
CPT/HCPCS: 36415; 83540; 85025